=== PATIENT | female | born 1960 | race Caucasian/White ===

== ENCOUNTER 2021-06-23 11:00 | Emergency (ER) | payer OTHER ==
--- OUTSIDE RECORDS SUMMARY | 2021-06-23 11:03 | XMS REPORT | Continuity of Care Document ---
:1960 Author Organization [facility] t Address [address] [place] [address] [address] [place] [address] Care Team Providers Name Role Phone Jasiel Good Attending Clinician Unavailable Problems This patient has no known problems. Allergies, Adverse Reactions, Alerts This patient has no known allergies or adverse reactions. Medications Ordered Filled Start Stop Current Ordering Indication Dosage Frequency Signature Comments Components Source Medication Medication Date Date Medication? Clinician (SIG) Name Name Ranitidine Ranitidine 2019-0 Yes Na Good [address] [facility] HCl HCl 3-11 [facility] 00 [facility] Crestor Crestor Yes Na Good [address] [facility] Clonidine Clonidine Yes Na Good [address] [facility] Folic Acid Folic Acid Yes Na Good [address] [facility] XTRA XTRA [facility] Triamterene Triamterene Yes Na Good [address] [facility] -HCTZ -HCTZ in the [facility] - morning [facility]ics Norvasc Norvasc Yes Na Good [address] [facility] Flonase Flonase Yes Na Good [address] [facility] each [facility] Montelukast Montelukast Yes Na Good [address] [facility] Sodium Sodium in the [facility] - evening [facility] Gabapentin Gabapentin Yes Na Good [address] [facility] Levothyroxi Levothyroxi Yes Na Good [address] [facility] ne Sodium ne Sodium on an Luke s - empty [facility] stomach in l the Outpati morning ent Clinics Vitamin D3 Vitamin D3 Yes Na Good [address] [facility] Clonidine Clonidine Yes Na Good [address] [facility] HCl HCl [facility] Methotrexat Methotrexat Yes Na Good INJECT 0.[address] [facility] e Sodium e Sodium ML [facility] - (PF) (PF) SUBCUTANEO [facility] USLY ONCE l EVERY Outpati WEEK. ent Clinics Claritin Claritin 2019- Na Good [address] [facility] 08-05 [facility] Immunizations Ordered Filled Immunization Date Status Comments Sourc e Immunization Name Name FluDONNY FluAD 2018-11-[address] [facility]00 [facility] Procedures This patient has no known procedures. Encounters Start End Encounter Admission Attending Care Care Encounter Source Date/Time Date/Time Type Type Clinicians Facility Department ID 2021-06-07 Out[facility] [id number] [facility] 10[facility]43[facility]00 [id number] [facility] 2021-05-18 Out[facility] Lat[facility] Jann[facility] [id number] [facility] 16:35:00 [id number] [facility] 2021-03-23 Outpatient GoodJannette [facility] [id number] [facility] 14[facility]34[facility]30 [facility] 2021-03-23 Outpatient Latisha Jann[facility] [id number] [facility] 14:00:26 [id number] [facility] 2021-03-23 Outpatient GoodJannette [facility] [id number] [facility] [address] 13:58:30 [id number] [facility] 2021-03-23 Outpatient GoodJannette [facility] [id number] [facility] [address] 13:57:22 [facility] 2021-03-23 Outpatient Good, Na [facility] [id number] [facility] 13:23:44 [id number] [facility] 2021-03-23 Outpatient Good, Na [facility] [id number] [facility] [address] 12:45:34 [id number] [facility] 2021-03-23 Outpatient Good, Na [facility] [id number] [facility] [address] 12:36:03 [id number] [facility] 2021-03-23 Outpatient Good, Na [facility] [id number] [facility] [address] 12:21:11 [id number] [facility] 2021-03-23 Outpatient Good, Na [facility]LML[facility] [id number] [facility] [address] 12:09:34 [id number] [facility] 2021-03-23 Outpatient Good, Na [facility]ML[facility] [id number] [facility] [address] 11:58:50 [id number] [facility] 2021-03-23 Outpatient Good, Na [facility] [id number] [facility] [address] 11:33:44 [id number] [facility] 2021-03-23 Outpatient Good, Na [facility] [id number] [facility] 11:31:40 [id number] [facility] 2021-03-23 Outpatient Good, Na [facility]LML[facility] [id number] [facility] [address] 11:18:14 [id number] [facility] 2021-03-23 Outpatient Good, Na [facility] [id number] [facility] 11:16:56 [id number] [facility] 2021-03-11 2021-03-11 ambulatory [facility] [id number] [facility] 2020-12-03 2020-12-03 Outpatient [facility] [id number] [facility] 2020-10-06 2020-10-06 Outpatient [facility] [id number] [facility] 2020-09-03 2020-09-03 Outpatient [facility] [id number] [facility] 2020-09-03 2020-09-03 Outpatient [facility] [id number] [facility] 2020-06-28 2020-06-28 Outpatient [facility] [id number] [facility] 2020 2020 Outpatient [facility] [id number] [facility] 2020-01-29 2020-01-29 Outpatient [facility] [id number] [facility] 2020-01-29 2020-01-29 Outpatient [facility] [id number] [facility] 2019-09-15 2019-09-15 [facility] [id number] [address] [facility]:00:[address] [facility] [address] [facility] Medicine l Medicine Outpati ent Clinics 2019-06-16 2019-06-16 [facility] [id number] 08:40:00 08:40:[address] [facility] - [address] [facility] l Medicine Outpati ent Clinics 2019-05-30 2019-05-30 [facility] [id number] 15:47:00 15:47:[address] [facility] [place] [address] [facility] Medicine l Medicine Outpati ent Clinics 2019-02-07 2019-02-07 [facility] [id number] 08:40:00 08:40:[address] [facility] [place] - [address] [facility] Medicine Outpati ent Clinics 2019-01-30 2019-01-30 [facility] [id number] [address] 16:14:00 16:14:00 t [employer] [facility] Medicine Outpati ent Clinics 2018-11-08 2018-11-08 [facility] [id number] 08:40:00 08:40:00 t [employer] [facility] Outpati ent Clinics 2018-10-22 2018-10-22 [facility] [id number] 08:20:00 08:20:00 t [employer] [facility] Medicine Outpati ent Clinics 2018-05-06 2018-05-06 [facility] [id number] 08:30:00 08:30:00 t [employer] [facility] Outpati ent Clinics Results This patient has no known results.
[2021-06-23] MEDS ORDERED: MORPHINE 4 MG/ML SYR ONE (11:39)
[2021-06-23] MEDS ORDERED: ONDANSETRON 4 MG/2 ML VIAL ONE (11:39)
--- NOTE | 2021-06-23 12:18 | RAD REPORT ---
EXAM DESCRIPTION: RAD - Knee Right 3 View - 06/23/2021 11:49 am CLINICAL HISTORY: Right knee pain status post injury FINDINGS: The knee is fused. The bones are osteoporotic. Lucency within the proximal tibia likely a nondisplaced fracture. Cortical irregularity involves the fibular neck also probably a nondisplaced fracture. No dislocation
--- NOTE | 2021-06-23 12:35 | ER ---
Nurse's Notes [facility] Name: Young Gates Age: 61 yrs Sex: Female : 1960 Arrival Date: 06/23/2021 Time: 11:10 Bed 18 Private MD: Diagnosis: Nondisplaced fracture of right tibial tuberosity-proximal tibial and febular fracture Presentation: 06/23 11:13 Chief complaint: Patient states: in wheelchair scooter when leg was caught and bent jh6 backwards. pt having rt knee pain. sharp, worse with movement. Coronavirus screen: Vaccine status: Patient reports receiving the 2nd dose of the covid vaccine. Ebola Screen: Patient negative for fever greater than or equal to 101.5 degrees Fahrenheit, and additional compatible Ebola Virus Disease symptoms Patient denies exposure to infectious person. Patient denies travel to an Ebola-affected area in the 21 days before illness onset. Initial Sepsis Screen: Does the patient meet any 2 criteria? No. Patient's initial sepsis screen is negative. Does the patient have a suspected source of infection? No. Patient's initial sepsis screen is negative. Risk Assessment: Do you want to hurt yourself or someone else? Patient reports no desire to harm self or others. Onset of symptoms was June 23, 2021. 11:13 Method Of Arrival: EMS: [facility] 11:13 Acuity: KJ 4 6 Triage Assessment: 11:15 General: Appears in no apparent distress. uncomfortable, Behavior is calm, cooperative. 6 Pain: Complains of pain in posterior aspect of right knee and right knee Pain currently is 10 out of 10 on a pain scale. Quality of pain is described as sharp, shooting, stabbing, Pain began suddenly, Aggravated by exercise, increased activity. Historical: - Allergies: 11:14 Ampicillin; 6 11:14 Azithromycin; 6 11:14 Lisinopril; 6 11:14 PENICILLINS; 6 - PMHx: 11:14 Arthritis; Hypertension; Hypothyroidism; 6 - Immunization history:: Adult Immunizations up to date. - Social history:: Smoking status: Patient denies any tobacco usage or history of. - Family history:: not pertinent. Screenin:16 Abuse screen: Denies threats or abuse. Nutritional screening: No deficits noted. jh6 Tuberculosis screening: No symptoms or risk factors identified. Fall Risk IV access (20 points). Gait- Impaired (20 pts.). Assessment: 11:10 General: Appears in no apparent distress. uncomfortable, Behavior is calm, cooperative. jh6 11:10 Pain: Complains of pain in left rob Pain radiates to left knee Pain currently is 9 out jh6 of 10 on a pain scale. Quality of pain is described as shooting, throbbing, Pain began suddenly, Is continuous, Alleviated by rest, cold application, Aggravated by increased activity, repositioning. 12:20 Reassessment: Patient and/or family updated on plan of care and expected duration. Pain jh6 level reassessed. Patient is alert, oriented x 3, equal unlabored respirations, skin warm/dry/pink. Patient states feeling better. Patient states symptoms have improved. 12:20 Pain: Pain currently is 4 out of 10 on a pain scale. jh6 Vital Signs: 11:11 BP 147 / 96; Pulse 58; Resp 16; Temp 97.6; Pulse Ox 100% ; Weight 99.79 kg; Height 5 zm ft. 9 in. (175.26 cm); 13:10 BP 147 / 75; Pulse 72; Resp 16; Pulse Ox 98% ; Pain 4/10; jh6 11:11 Body Mass Index 32.49 (99.79 kg, 175.26 cm) zm ED Course: 11:10 Patient arrived in ED. jh6 11:13 Mili Antoine, RN is Primary Nurse. jh6 11:14 Triage completed. jh6 11:16 Arm band placed on left wrist. Patient placed in an exam room, on a stretcher, on pulse jh6 oximetry. 11:16 Bed in low position. Call light in reach. Side rails up X 1. jh6 11:17 No provider procedures requiring assistance completed. jh6 11:25 Cooper Cordon MD is Attending Physician. ma2 11:51 Knee Right 3 View XRAY In Process Unspecified. EDMS 12:34 Denilson Calderon MD is Referral Physician. ma2 13:08 Assist provider with fracture care of right rob Fracture is closed. Set up for 6 procedure. Immobilized with OCL splint, Post immobilization, circulation, motor and sensation remain intact. Patient tolerated well. 13:40 IV discontinued, intact, bleeding controlled, No redness/swelling at site. Pressure ss dressing applied. Administered Medications: 11:40 Drug: morphine 4 mg Route: IVP; Site: right hand; 6 13:11 Follow up: Response: Pain is decreased 6 11:40 Drug: Zofran (Ondansetron) 4 mg Route: IVP; Site: right hand; 6 13:11 Follow up: Response: No adverse reaction [facility] Outcome: 12:35 Discharge ordered by . lexis 13:40 Discharged to home via ambulance. 13:40 Condition: good 13:40 Discharge instructions given to patient, Instructed on discharge instructions, follow up and referral plans. Demonstrated understanding of instructions, follow-up care, Prescriptions given X 1. 13:43 Patient left the ED. 6 Signatures: Dispatcher [employer] [place] Colin RN RN Cooper Leon MD MD ma2 Mili Antoine RN RN [facility] April Valdez
--- NOTE | 2021-06-23 12:35 | EDPHYS ---
Physician Documentation [facility] Name: Young Gates Age: 61 yrs Sex: Female : 1960 Arrival Date: 06/23/2021 Time: 11:10 Bed 18 Private MD: ED Physician Cooper Cordon HPI: 06/23 12:30 This 61 yrs old Female presents to ER via EMS with complaints of Knee pain. ma2 12:30 7-year-old female twisted her right knee while trying to get off the wheelchair, she ma2 states she heard a pop, here with knee pain for 1 hour constant painful range of motion.. Historical: - Allergies: 11:14 Ampicillin; jh6 11:14 Azithromycin; jh6 11:14 Lisinopril; jh6 11:14 PENICILLINS; jh6 - PMHx: 11:14 Arthritis; Hypertension; Hypothyroidism; jh6 - Immunization history:: Adult Immunizations up to date. - Social history:: Smoking status: Patient denies any tobacco usage or history of. - Family history:: not pertinent. ROS: 12:30 Constitutional: Negative for fever, chills, and weight loss. ma2 12:30 All other systems are negative. Exam: 12:30 Constitutional: This is a well developed, well nourished patient who is awake, alert, ma2 and in no acute distress. Head/Face: Normocephalic, atraumatic. Chest/axilla: Normal chest wall appearance and motion. Nontender with no deformity. No lesions are appreciated. Cardiovascular: Regular rate and rhythm with a normal S1 and S2. No gallops, murmurs, or rubs. Normal PMI, no JVD. No pulse deficits. Respiratory: Lungs have equal breath sounds bilaterally, clear to auscultation and percussion. No rales, rhonchi or wheezes noted. No increased work of breathing, no retractions or nasal flaring. Abdomen/GI: Soft, non-tender, with normal bowel sounds. No distension or tympany. No guarding or rebound. No evidence of tenderness throughout. Skin: Warm, dry with normal turgor. Normal color with no rashes, no lesions, and no evidence of cellulitis. MS/ Extremity: Right knee tenderness to lateral tibia, mild effusion, there is no warmth or cyclically, skin is intact with no abrasions or punctures, limited range of motion of the right knee both flexion and extension due to pain, there is no clinical dislocation, right knee and right leg is well-perfused with palpable popliteal pulses and good pulses at the DP and PT. Cap refill brisk, otherwise pulses equal, no cyanosis. Neurovascular intact. Full, normal range of motion. Neuro: Awake and alert, GCS 15, oriented to person, place, time, and situation. Cranial nerves II-XII grossly intact. Motor strength 5/5 in all extremities. Sensory grossly intact. Cerebellar exam normal. Normal gait. Vital Signs: 11:11 BP 147 / 96; Pulse 58; Resp 16; Temp 97.6; Pulse Ox 100% ; Weight 99.79 kg; Height 5 zm ft. 9 in. (175.26 cm); 13:10 BP 147 / 75; Pulse 72; Resp 16; Pulse Ox 98% ; Pain 4/10; jh6 11:11 Body Mass Index 32.49 (99.79 kg, 175.26 cm) zm MDM: 12:30 Differential diagnosis: closed fracture, contusion, abrasion, tendonitis. Data ma2 reviewed: vital signs, nurses notes. Counseling: I had a detailed discussion with the patient and/or guardian regarding: the historical points, exam findings, and any diagnostic results supporting the discharge/admit diagnosis, the presence of at least one elevated blood pressure reading (>120/80) during this emergency department visit, the need for outpatient follow up. Response to treatment: the patient's symptoms have markedly improved after treatment. 12:35 Patient medically screened. vt2 06/23 11:25 Order name: Knee Right 3 View XRAY; Complete Time: 12:27 ma2 06/23 12:29 Order name: Long Leg Splint: Posterior w/ Stirrup; Complete Time: 13:11 ma2 Administered Medications: 11:40 Drug: morphine 4 mg Route: IVP; Site: right hand; 6 13:11 Follow up: Response: Pain is decreased 6 11:40 Drug: Zofran (Ondansetron) 4 mg Route: IVP; Site: right hand; 6 13:11 Follow up: Response: No adverse reaction [facility] Disposition Summary: 06/23/21 12:35 Discharge Ordered Location: Home ma2 Condition: Stable ma2 Diagnosis - Nondisplaced fracture of right tibial tuberosity - proximal tibial and febular ma2 fracture Followup: ma2 - With: Denilson Calderon MD - When: Tomorrow - Reason: If symptoms return, Continuance of care Discharge Instructions: - Discharge Summary Sheet ma2 - Tibial Fracture, Adult, [id number] ma2 Forms: - Medication Reconciliation Form ma2 - Thank You Letter ma2 - Antibiotic Education ma2 - Prescription Opioid Use ma2 Prescriptions: - KETOROLAC - take 10 milligram by ORAL route 3 times per day; 21 tablet; Refills: 0, Product ma2 Selection Permitted Signatures: Dispatcher [employer] EDMS Cooper Cordon MD MD vt2 Mili Antoine RN RN jh6 Corrections: (The following items were deleted from the chart) 12:29 12:28 Knee Immobilizer ordered. ma2 ma2
[2021-06-23 14:40] VITALS: TEMP 97.6
[2021-06-23 14:47] VITALS: BP 147/75; O2SAT 98
== END 2021-06-23 13:43 | disposition home or self-care (01) ==
LOC: ER 11:00
PROC: 2W3LX1Z Immobilization of Right Lower Extremity using Splint (ICD-10-PCS; principal; 2021-06-23)
DX: S82.154A Nondisplaced fracture of right tibial tuberosity, initial encounter for closed fracture (principal); X50.1XXA Overexertion from prolonged static or awkward postures, initial encounter; I10 Essential (primary) hypertension; Z88.0 Allergy status to penicillin; Z88.1 Allergy status to other antibiotic agents; Z88.8 Allergy status to other drugs, medicaments and biological substances
CPT/HCPCS: 73562; 96375; 96374; 99284; 29505; J2405

== ENCOUNTER 2023-01-29 11:28 | Observation (INO) | payer OTHER ==
--- OUTSIDE RECORDS SUMMARY | 2023-01-29 11:34 | XMS REPORT | Continuity of Care Document ---
:1960 Author Organization [facility] t Address [address] [place] [address] [place] [id number] Care Team Providers Name Role Phone Nikolay Bhakta Attending Clinician Unavailable Ofelia SUÁREZ Attending Clinician Unavailable Carlie Garrido Attending Clinician Unavailable Jannette Good Attending Clinician Unavailable Meka Attending Clinician Unavailable NEAL_GERSON_Wilbur_S Attending Clinician Unavailable Ian Monzon Attending Clinician Unavailable Meka Admitting Clinician Unavailable NEAL_GERSON_Wilbur_S Admitting Clinician Unavailable Ian Monzon Admitting Clinician Unavailable Carlie Garrido Admitting Clinician Unavailable Payers Payer Name Policy Type Policy Number Effective Date Expiration Date [employer] - [id number] 2022 [facility] 00:00:00 - DUAL ELIGIBLE (MEDICARE REPLACEMENT/ADVAN TAGE - HMO) [employer] [place] [id number] 2018 [facility] - 00:00:00 STAR (MEDICAID HMO) [facility] [id number] - DUAL COMPLETE - DUAL ELIGIBLE - SNP (MEDICARE-MEDICAI D REPLACEMENT HMO) [facility] - [id number] [facility] - COMMUNITY PLAN - DUAL COMPLETE FOCUS (MEDICARE REPLACEMENT HMO) [facility] Dual 111 [id number] 2020 Common Complete (HMO-POS 00:00:00 Spirit - [facility] D-SNP) [facility] MEDICAID [id number] 2012 Common 00:00:00 [facility] MEDICARE NOVITAS MB [id number] 2010 Common 00:00:00 [facility] [employer] [id number] 2018 Common (Medicaid) 00:00:00 [facility] Problems Condition Condition Condition Status Onset Resolution Last Treating Co mments Source Name Details Category Date Date Treatment Clinician Date 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-17 Orth ope osteoarthr Osteoarthr 00:00: di c itis itis 00 [facility] Osteoarthr Osteoarthr Problem Active 2013-02 A zalea itis of itis of 0-07 Orthope knee Knee 00:00: dic 00 Sports Medicin e [id number] Seasonal Problem Commo n allergic Spirit rhinitis - [facility] due to [facility] [id number] Other Problem Common closed Spirit fracture - [facility] of proximal [facility] tibia, initial encounter [id number] Other Problem Common closed Spirit fracture - [facility] of [facility] fibula, initial encounter [id number] Pain, [place] [id number] joint, Spirit knee, - [facility] right [facility] [id number] Body mass Problem Com mon index Spirit [BMI] - [facility] 33.0-33.9, [facility] General General Problem Common weakness weakness [facility] Pain in Pain in Problem Common limb limb Spirit [facility] 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 Peripheral Peripheral Problem C ommon neuropathy neuropathy Sp anil - [facility] Hypertensi HTN Problem Commo n on (hypertens Spirit ion) [facility] Gastroesop GERD Problem Commo n hageal (gastroeso Spirit reflux phageal [facility] disease reflux St disease) [facility] Anemia Anemia Problem Common [facility] Hypothyroi Hypothyroi Problem C ommon dism dism [facility] Rheumatoid Rheumatoid Problem C ommon arthritis arthritis Spir it [facility] Hyperlipid Hyperlipid Problem C ommon emia emia [facility] [id number] +5th digit Problem Co mmon eff Spirit 11/27/19*[place] - [facility] stroesopha [facility] reflux Medical disease Center with esophagiti s [id number] Neuropathy Problem Co mmon [facility] [id number] Wheelchair Problem Co mmon dependence [facility] Knee pain Knee pain Problem Com mon [facility] [id number] Chronic Problem Commo n seasonal Spirit allergic - [facility]I rhinitis [facility] Dependence Uses Problem Commo n on wheelchair Spirit wheelchair [facility] Acquired Valgus Problem Common genu deformity, Spirit valgum not - [facility] elsewhere [facility] , right Medical knee Center [id number] Influenza Problem Co mmon [id number] vaccinatio Spirit n - [facility]I administer [facility] ed at [facility] current Medical visit Center Allergies, Adverse Reactions, Alerts Allergy Allergy Status Severity Reaction(s) Onset Inactive Treating Comm ents Source Name Type Date Date Clinician Penicill DA Active SV BREAKOUT IN 2022-02 [facility] ins HIVES UNDER 0-23 [place] THE SKIN 00:00: [facility]ope 00 [facility] lisinopr DA Active SV CAUSE ME TO 2022-02 [facility] il HAVE KIDNEY 0-23 [place] FAILURE 00:00: Orthope 00 dic [facility]osp[facility] l iodine DA Active [facility] THROAT 2022-02 [facility] [place] Orthop e BREATHING 00 dic Hospita l azithrom DA Active SV HIVES 2022-02 [facility] ycin 0-23 [place] 00:00: Orthope 00 dic Hospita l shellfis FA Active [facility] THROAT 2022-02 [facility] [place] derived DIFF[place]ULTY 00:00: Ortho pe BREATHING 00 dic Hospita l shrimp FA Active SV THROAT 2022-02 [facility] SWELLS, 0-23 [place] DIFFICULTY 00:00: Orthop e BREATHING 00 dic Hospita l crab FA Active SV THROAT 2022-02 [facility] SWELLS, 0-23 [place] DIFFICULTY 00:00: Orthop e BREATHING 00 dic Hospita l azithrom DA Active SV HIVES 2022- [facility] ycin 0-13 [place] 00:00: [address] shrimp FA Active SV THROAT [facility] SWELLS, 8-17 [place] DIFF[place] 00:[place] [facility] crab FA Active SV THROAT [facility] SWELLS, 8-17 [place] DIFFICULTY 00:00: [place] 00 [facility] Penicill DA Active SV BREAKOUT IN [facility] ins HIVES UNDER 8-17 [place] THE SKIN 00:00: [address] lisinopr DA Active SV CAUSE ME TO [facility] [place] HAVE KIDNEY 8-17 [place] FAILURE 00:00: [address] iodine DA Active SV THROAT [facility] SWELLING UP, 8-17 [place] DIFFICULTY 00:00: [place] BREATHING 00 [facility] shellfis FA Active SV THROAT [facility] h SWELLING UP, 8-17 [place] derived DIFFICULTY 00:00: [place] BREATHING 00 [facility] LISINOPR Allergy Active 2013-02 Syeda [place] to 0-07 Orthope substanc 00:00: dic e 00 [facility] PENICILL Allergy Active 2013-02 Syeda [place] to 0-07 Orthope substanc 00:00: dic e 00 [facility] Amoxicil Allergy Active Syeda edwin to Orthope substanc dic e Sports Medicin e Ampicill Allergy Active Syeda in to Orthope substanc dic e Sports Medicin e PENICILL Allergy Active Syeda INS to Orthope substanc dic e Sports Medicin e SHELLFIS Allergy Active Syeda H to Orthope DERIVED substanc dic e Sports Medicin e [id number] Drug Active Unknown Common 85 allergy [facility] Social History Social Habit Start Date Stop Date Quantity Comments Source History of Tobacco Use Co mmon [facility] Sex Assigned At Com mon [facility] Smoking Status Start Date Stop Date Source Never Smoker [facility] Medications Ordered Filled Start Stop Current Ordering Indication Dosage Frequency Signature Comments Components Source Medication Medication Date Date Medication? Clinician (SIG) Name Name Levothyroxi Levothyroxi No QD Levothyrox ne Sodium ne Sodium 5-11 ine Sodium 75 MCG 75 MCG 00:00: 75 MCG 00 Levothyroxi Levothyroxi No QD Levothyrox ne Sodium ne Sodium 5-11 ine Sodium 75 MCG 75 MCG 00:00: 75 MCG 00 Levothyroxi Levothyroxi No QD Levothyrox ne Sodium ne Sodium 5-11 ine Sodium 75 MCG 75 MCG 00:00: 75 MCG 00 Levothyroxi Levothyroxi No QD Levothyrox ne Sodium ne Sodium 5-11 ine Sodium 75 MCG 75 MCG 00:00: 75 MCG 00 Levothyroxi Levothyroxi No QD Levothyrox ne Sodium ne Sodium 5-11 ine Sodium 75 MCG 75 MCG 00:00: 75 MCG 00 Levothyroxi Levothyroxi No QD Levothyrox ne Sodium ne Sodium 5-11 ine Sodium 75 MCG 75 MCG 00:00: 75 MCG 00 Levothyroxi Levothyroxi No QD Levothyrox ne Sodium ne Sodium 5-11 ine Sodium 75 MCG 75 MCG 00:00: 75 MCG 00 Levothyroxi Levothyroxi No QD Levothyrox ne Sodium ne Sodium 5-11 ine Sodium 75 MCG 75 MCG 00:00: 75 MCG 00 Levothyroxi Levothyroxi No QD Levothyrox ne Sodium ne Sodium 5-11 ine Sodium 75 MCG 75 MCG 00:00: 75 MCG 00 Levothyroxi Levothyroxi No QD Levothyrox ne Sodium ne Sodium 5-11 ine Sodium 75 MCG 75 MCG 00:00: 75 MCG 00 Flonase 50 Flonase 50 No 2{spray QD Flonase 50 MCG/ACT MCG/ACT 5-04 _in_eac MCG/ACT 00:00: h_nostr 00 il} Flonase 50 Flonase 50 No 2{spray QD Flonase 50 MCG/ACT MCG/ACT 5-04 _in_eac MCG/ACT 00:00: h_nostr 00 il} Flonase 50 Flonase 50 2022-0 No 2{spray QD Flonase 50 MCG/ACT MCG/ACT 5-04 _in_eac MCG/ACT 00:00: h_nostr 00 il} Flonase 50 Flonase 50 2021-0 No 2{spray QD Flonase 50 MCG/ACT MCG/ACT 5-04 _in_eac MCG/ACT 00:00: h_nostr 00 il} Flonase 50 Flonase 50 2-0 No 2{spray QD Flonase 50 MCG/ACT MCG/ACT 5-04 _in_eac MCG/ACT 00:00: h_nostr 00 il} Flonase 50 Flonase 50 2021-0 No 2{spray QD Flonase 50 MCG/ACT MCG/ACT 5-04 _in_eac MCG/ACT 00:00: h_nostr 00 il} Flonase 50 Flonase 50 2021-0 No 2{spray QD Flonase 50 MCG/ACT MCG/ACT 5-04 _in_eac MCG/ACT 00:00: h_nostr 00 il} Flonase 50 Flonase 50 2021-0 No 2{spray QD Flonase 50 MCG/ACT MCG/ACT 5-04 _in_eac MCG/ACT 00:00: h_nostr 00 il} Flonase 50 Flonase 50 2021-0 No 2{spray QD Flonase 50 MCG/ACT MCG/ACT 5-04 _in_eac MCG/ACT 00:00: h_nostr 00 il} Flonase 50 Flonase 50 2-0 No 2{spray QD Flonase 50 MCG/ACT MCG/ACT 5-04 _in_eac MCG/ACT 00:00: h_nostr 00 il} Flonase 50 Flonase 50 2021-0 No 2{spray QD Flonase 50 MCG/ACT MCG/ACT 5-04 _in_eac MCG/ACT 00:00: h_nostr 00 il} Flonase 50 Flonase 50 2021-0 No 2{spray QD Flonase 50 MCG/ACT MCG/ACT 5-04 _in_eac MCG/ACT 00:00: h_nostr 00 il} Ranitidine Ranitidine 2018-0 Yes Na Good 1 capsule Common HCl HCl 3-11 Spirit 00:00: - [facility] 00 [facility] amlodipine amlodipine 2013-02 No amlodipine Syeda 2.5 mg 2.5 mg 0-07 2.5 mg Orthope tablet tablet 00:00: tablet dic 00 [facility] gabapentin gabapentin 2013-02 No gabapentin Syeda 600 mg 600 mg 0-07 600 mg Orthope tablet tablet 00:00: tablet dic 00 Sports Medicin e clonidine clonidine No clonidine Syeda HCl 0.2 mg HCl 0.2 mg HCl 0.2 mg Orthope tablet TAKE tablet TAKE tablet dic 1 TABLET BY 1 TABLET BY TAKE 1 Sports MOUTH EVERY MOUTH EVERY TABLET BY Medicin DAY DAY MOUTH e EVERY DAY Crestor Crestor Yes Na Good 1 tablet Co [facility] Clonidine Clonidine Yes Na Good 1 tablet Common HCl HCl [facility] Folic Acid Folic Acid Yes Na Good 1 tab Common XTRA XTRA [facility] Triamterene Triamterene Yes Na Good 1 tablet Common -HCTZ -HCTZ in the [facility] morning [facility] Norvasc Norvasc Yes Na Good 1 tablet Co [facility] Flonase Flonase Yes Na Good 1 spray in Common each [facility] nostril [facility] Montelukast Montelukast Yes Na Good 1 tablet Common Sodium Sodium in the [facility] evening [facility] Gabapentin Gabapentin Yes Na Good 1 capsule [facility] Levothyroxi Levothyroxi Yes Na Good 1 tablet Common ne Sodium ne Sodium on an Spir it empty - [facility]I stomach in [facility] Vitamin D3 Vitamin D3 Yes Na Good 1 capsule Common [facility] Clonidine Clonidine Yes Na Good 1 tablet Common HCl HCl [facility] Methotrexat Methotrexat Yes Na Good INJECT 0.8 Common e Sodium e Sodium ML Spirit (PF) (PF) SUBCUTANEO - [facility] USLY ONCE [facility] WEEK. [facility] Center cloNIDine cloNIDine No 1{table QD cloNIDine HCl 0.2 MG HCl 0.2 MG t} HCl 0.2 MG Crestor 10 Crestor 10 No 1{table QD Crestor 10 MG MG t} MG Vitamin D3 Vitamin D3 No 1{capsu QD Vitamin D3 2000 UNIT 2000 UNIT le} 2000 UNIT Triamterene Triamterene No 1{table QD Triamteren -HCTZ -HCTZ t_in_th e-HCTZ 37.5-25 MG 37.5-25 MG e_morni 37.5-25 MG ng} Ranitidine Ranitidine No 1{capsu BID Ranitidine HCl 150 MG HCl 150 MG le} HCl 150 MG cloNIDine cloNIDine No 1{table QD cloNIDine HCl 0.2 HCl 0.2 t} HCl 0.2 Levothyroxi Levothyroxi No QD Levothyrox ne Sodium ne Sodium ine Sodium 75 MCG 75 MCG 75 MCG Methotrexat Methotrexat No Methotrexa e Sodium e Sodium te Sodium (PF) 50 (PF) 50 (PF) 50 MG/2ML MG/2ML MG/2ML Norvasc 5 Norvasc 5 No 1{table QD Norvasc 5 t} Montelukast Montelukast No 1{table QD Montelukas Sodium 10 Sodium 10 t_in_th t Sodium e_eveni 10 ng} Flonase 50 Flonase 50 No 1{spray QD Flonase 50 MCG/ACT MCG/ACT _in_eac MCG/ACT h_nostr il} Gabapentin Gabapentin No 1{capsu BID Gabapentin 300 MG 300 MG le} 300 MG Gabapentin Gabapentin No 1{capsu BID Gabapentin 300 300 le} 300 Folic Acid Folic Acid No QD Folic Acid Xtra - Xtra - Xtra - Montelukast Montelukast No 1{table QD Montelukas Sodium 10 Sodium 10 t_in_th t Sodium MG MG e_eveni 10 MG ng} Norvasc 5 Norvasc 5 No 1{table QD Norvasc 5 MG MG t} MG Norvasc 5 Norvasc 5 No 1{table QD Norvasc 5 MG MG t} MG Levothyroxi Levothyroxi No QD Levothyrox ne Sodium ne Sodium ine Sodium 50 MCG 50 MCG 50 MCG Crestor 10 Crestor 10 No 1{table QD Crestor 10 MG MG t} MG Montelukast Montelukast No 1{table QD Montelukas Sodium 10 Sodium 10 t_in_th t Sodium e_eveni 10 ng} cloNIDine cloNIDine No 1{table QD cloNIDine HCl 0.2 HCl 0.2 t} HCl 0.2 Gabapentin Gabapentin No 1{capsu BID Gabapentin 300 300 le} 300 Vitamin D3 Vitamin D3 No 1{capsu QD Vitamin D3 2000 UNIT 2000 UNIT le} 2000 UNIT Gabapentin Gabapentin No 1{capsu BID Gabapentin 300 MG 300 MG le} 300 MG Ranitidine Ranitidine No 1{capsu BID Ranitidine HCl 150 MG HCl 150 MG le} HCl 150 MG Flonase 50 Flonase 50 No 1{spray QD Flonase 50 MCG/ACT MCG/ACT _in_eac MCG/ACT h_nostr il} cloNIDine cloNIDine No 1{table QD cloNIDine HCl 0.2 MG HCl 0.2 MG t} HCl 0.2 MG Montelukast Montelukast No 1{table QD Montelukas Sodium 10 Sodium 10 t_in_th t Sodium MG MG e_eveni 10 MG ng} Folic Acid Folic Acid No QD Folic Acid Xtra - Xtra - Xtra - Norvasc 5 Norvasc 5 No 1{table QD Norvasc 5 t} Methotrexat Methotrexat No Methotrexa e Sodium e Sodium te Sodium (PF) 50 (PF) 50 (PF) 50 MG/2ML MG/2ML MG/2ML Triamterene Triamterene No 1{table QD Triamteren -HCTZ -HCTZ t_in_th e-HCTZ 37.5-25 MG 37.5-25 MG e_morni 37.5-25 MG ng} Levothyroxi Levothyroxi No QD Levothyrox ne Sodium ne Sodium ine Sodium 50 MCG 50 MCG 50 MCG Vitamin D3 Vitamin D3 No 1{capsu QD Vitamin D3 2000 UNIT 2000 UNIT le} 2000 UNIT cloNIDine cloNIDine No cloNIDine HCl 0.2 MG HCl 0.2 MG HCl 0.2 MG Flonase 50 Flonase 50 No 1{spray QD Flonase 50 MCG/ACT MCG/ACT _in_eac MCG/ACT h_nostr il} Gabapentin Gabapentin No 1{capsu BID Gabapentin 300 300 le} 300 Folic Acid Folic Acid No QD Folic Acid Xtra - Xtra - Xtra - Gabapentin Gabapentin No 1{capsu BID Gabapentin 300 MG 300 MG le} 300 MG Crestor 10 Crestor 10 No 1{table QD Crestor 10 MG MG t} MG Norvasc 5 Norvasc 5 No 1{table QD Norvasc 5 MG MG t} MG cloNIDine cloNIDine No 1{table QD cloNIDine HCl 0.2 HCl 0.2 t} HCl 0.2 Triamterene Triamterene No 1{table QD Triamteren -HCTZ -HCTZ t_in_th e-HCTZ 37.5-25 MG 37.5-25 MG e_morni 37.5-25 MG ng} Ranitidine Ranitidine No 1{capsu BID Ranitidine HCl 150 MG HCl 150 MG le} HCl 150 MG Montelukast Montelukast No 1{table QD Montelukas Sodium 10 Sodium 10 t_in_th t Sodium MG MG e_eveni 10 MG ng} Norvasc 5 Norvasc 5 No 1{table QD Norvasc 5 t} Montelukast Montelukast No 1{table QD Montelukas Sodium 10 Sodium 10 t_in_th t Sodium e_eveni 10 ng} Methotrexat Methotrexat No Methotrexa e Sodium e Sodium te Sodium (PF) 50 (PF) 50 (PF) 50 MG/2ML MG/2ML MG/2ML Methotrexat Methotrexat No Methotrexa e Sodium e Sodium te Sodium (PF) 50 (PF) 50 (PF) 50 MG/2ML MG/2ML MG/2ML cloNIDine cloNIDine No 1{table QD cloNIDine HCl 0.2 HCl 0.2 t} HCl 0.2 Gabapentin Gabapentin No 1{capsu BID Gabapentin 300 MG 300 MG le} 300 MG Norvasc 5 Norvasc 5 No 1{table QD Norvasc 5 MG MG t} MG Gabapentin Gabapentin No 1{capsu BID Gabapentin 300 300 le} 300 Vitamin D3 Vitamin D3 No 1{capsu QD Vitamin D3 2000 UNIT 2000 UNIT le} 2000 UNIT Flonase 50 Flonase 50 No 1{spray QD Flonase 50 MCG/ACT MCG/ACT _in_eac MCG/ACT h_nostr il} Montelukast Montelukast No 1{table QD Montelukas Sodium 10 Sodium 10 t_in_th t Sodium MG MG e_eveni 10 MG ng} cloNIDine cloNIDine No 1{table QD cloNIDine HCl 0.2 MG HCl 0.2 MG t} HCl 0.2 MG Triamterene Triamterene No 1{table QD Triamteren -HCTZ -HCTZ t_in_th e-HCTZ 37.5-25 MG 37.5-25 MG e_morni 37.5-25 MG ng} Montelukast Montelukast No 1{table QD Montelukas Sodium 10 Sodium 10 t_in_th t Sodium e_eveni 10 ng} Ranitidine Ranitidine No 1{capsu BID Ranitidine HCl 150 MG HCl 150 MG le} HCl 150 MG Crestor 10 Crestor 10 No 1{table QD Crestor 10 MG MG t} MG Folic Acid Folic Acid No QD Folic Acid Xtra - Xtra - Xtra - cloNIDine cloNIDine No cloNIDine HCl 0.2 MG HCl 0.2 MG HCl 0.2 MG Norvasc 5 Norvasc 5 No 1{table QD Norvasc 5 t} Levothyroxi Levothyroxi No QD Levothyrox ne Sodium ne Sodium ine Sodium 50 MCG 50 MCG 50 MCG Methotrexat Methotrexat No Methotrexa e Sodium e Sodium te Sodium (PF) 50 (PF) 50 (PF) 50 MG/2ML MG/2ML MG/2ML cloNIDine cloNIDine No 1{table QD cloNIDine HCl 0.2 HCl 0.2 t} HCl 0.2 Gabapentin Gabapentin No 1{capsu BID Gabapentin 300 MG 300 MG le} 300 MG Norvasc 5 Norvasc 5 No 1{table QD Norvasc 5 MG MG t} MG Gabapentin Gabapentin No 1{capsu BID Gabapentin 300 300 le} 300 Vitamin D3 Vitamin D3 No 1{capsu QD Vitamin D3 2000 UNIT 2000 UNIT le} 2000 UNIT Flonase 50 Flonase 50 No 1{spray QD Flonase 50 MCG/ACT MCG/ACT _in_eac MCG/ACT h_nostr il} Montelukast Montelukast No 1{table QD Montelukas Sodium 10 Sodium 10 t_in_th t Sodium MG MG e_eveni 10 MG ng} cloNIDine cloNIDine No 1{table QD cloNIDine HCl 0.2 MG HCl 0.2 MG t} HCl 0.2 MG Triamterene Triamterene No 1{table QD Triamteren -HCTZ -HCTZ t_in_th e-HCTZ 37.5-25 MG 37.5-25 MG e_morni 37.5-25 MG ng} Montelukast Montelukast No 1{table QD Montelukas Sodium 10 Sodium 10 t_in_th t Sodium e_eveni 10 ng} Ranitidine Ranitidine No 1{capsu BID Ranitidine HCl 150 MG HCl 150 MG le} HCl 150 MG Crestor 10 Crestor 10 No 1{table QD Crestor 10 MG MG t} MG Folic Acid Folic Acid No QD Folic Acid Xtra - Xtra - Xtra - cloNIDine cloNIDine No cloNIDine HCl 0.2 MG HCl 0.2 MG HCl 0.2 MG Norvasc 5 Norvasc 5 No 1{table QD Norvasc 5 t} Levothyroxi Levothyroxi No QD Levothyrox ne Sodium ne Sodium ine Sodium 50 MCG 50 MCG 50 MCG Methotrexat Methotrexat No Methotrexa e Sodium e Sodium te Sodium (PF) 50 (PF) 50 (PF) 50 MG/2ML MG/2ML MG/2ML cloNIDine cloNIDine No 1{table QD cloNIDine HCl 0.2 HCl 0.2 t} HCl 0.2 Gabapentin Gabapentin No 1{capsu BID Gabapentin 300 MG 300 MG le} 300 MG Crestor 10 Crestor 10 No 1{table QD Crestor 10 MG MG t} MG Gabapentin Gabapentin No 1{capsu BID Gabapentin 300 300 le} 300 Flonase 50 Flonase 50 No 1{spray QD Flonase 50 MCG/ACT MCG/ACT _in_eac MCG/ACT h_nostr il} Montelukast Montelukast No 1{table QD Montelukas Sodium 10 Sodium 10 t_in_th t Sodium MG MG e_eveni 10 MG ng} Vitamin D3 Vitamin D3 No 1{capsu QD Vitamin D3 2000 UNIT 2000 UNIT le} 2000 UNIT cloNIDine cloNIDine No cloNIDine HCl 0.2 MG HCl 0.2 MG HCl 0.2 MG Triamterene Triamterene No 1{table QD Triamteren -HCTZ -HCTZ t_in_th e-HCTZ 37.5-25 MG 37.5-25 MG e_morni 37.5-25 MG ng} Norvasc 5 Norvasc 5 No 1{table QD Norvasc 5 MG MG t} MG Folic Acid Folic Acid No QD Folic Acid Xtra - Xtra - Xtra - Norvasc 5 Norvasc 5 No 1{table QD Norvasc 5 t} cloNIDine cloNIDine No 1{table QD cloNIDine HCl 0.2 MG HCl 0.2 MG t} HCl 0.2 MG Montelukast Montelukast No 1{table QD Montelukas Sodium 10 Sodium 10 t_in_th t Sodium e_eveni 10 ng} Ranitidine Ranitidine No 1{capsu BID Ranitidine HCl 150 MG HCl 150 MG le} HCl 150 MG Methotrexat Methotrexat No Methotrexa e Sodium e Sodium te Sodium (PF) 50 (PF) 50 (PF) 50 MG/2ML MG/2ML MG/2ML Norvasc 5 Norvasc 5 No 1{table QD Norvasc 5 MG MG t} MG Folic Acid Folic Acid No QD Folic Acid Xtra - Xtra - Xtra - cloNIDine cloNIDine No cloNIDine HCl 0.2 MG HCl 0.2 MG HCl 0.2 MG Norvasc 5 Norvasc 5 No 1{table QD Norvasc 5 t} cloNIDine cloNIDine No 1{table QD cloNIDine HCl 0.2 MG HCl 0.2 MG t} HCl 0.2 MG Montelukast Montelukast No 1{table QD Montelukas Sodium 10 Sodium 10 t_in_th t Sodium MG MG e_eveni 10 MG ng} Crestor 10 Crestor 10 No 1{table QD Crestor 10 MG MG t} MG Gabapentin Gabapentin No 1{capsu BID Gabapentin 300 MG 300 MG le} 300 MG Flonase 50 Flonase 50 No 1{spray QD Flonase 50 MCG/ACT MCG/ACT _in_eac MCG/ACT h_nostr il} Montelukast Montelukast No 1{table QD Montelukas Sodium 10 Sodium 10 t_in_th t Sodium e_eveni 10 ng} Vitamin D3 Vitamin D3 No 1{capsu QD Vitamin D3 2000 UNIT 2000 UNIT le} 2000 UNIT cloNIDine cloNIDine No 1{table QD cloNIDine HCl 0.2 HCl 0.2 t} HCl 0.2 Ranitidine Ranitidine No 1{capsu BID Ranitidine HCl 150 MG HCl 150 MG le} HCl 150 MG Triamterene Triamterene No 1{table QD Triamteren -HCTZ -HCTZ t_in_th e-HCTZ 37.5-25 MG 37.5-25 MG e_morni 37.5-25 MG ng} Gabapentin Gabapentin No 1{capsu BID Gabapentin 300 300 le} 300 Montelukast Montelukast No 1{table QD Montelukas Sodium 10 Sodium 10 t_in_th t Sodium e_eveni 10 ng} Methotrexat Methotrexat No Methotrexa e Sodium e Sodium te Sodium (PF) 50 (PF) 50 (PF) 50 MG/2ML MG/2ML MG/2ML Folic Acid Folic Acid No QD Folic Acid Xtra - Xtra - Xtra - Gabapentin Gabapentin No 1{capsu BID Gabapentin 300 300 le} 300 Crestor 10 Crestor 10 No 1{table QD Crestor 10 MG MG t} MG Triamterene Triamterene No 1{table QD Triamteren -HCTZ -HCTZ t_in_th e-HCTZ 37.5-25 MG 37.5-25 MG e_morni 37.5-25 MG ng} Vitamin D3 Vitamin D3 No 1{capsu QD Vitamin D3 2000 UNIT 2000 UNIT le} 2000 UNIT Norvasc 5 Norvasc 5 No 1{table QD Norvasc 5 MG MG t} MG Montelukast Montelukast No 1{table QD Montelukas Sodium 10 Sodium 10 t_in_th t Sodium MG MG e_eveni 10 MG ng} Norvasc 5 Norvasc 5 No 1{table QD Norvasc 5 t} Gabapentin Gabapentin No 1{capsu BID Gabapentin 300 MG 300 MG le} 300 MG cloNIDine cloNIDine No cloNIDine HCl 0.2 MG HCl 0.2 MG HCl 0.2 MG Ranitidine Ranitidine No 1{capsu BID Ranitidine HCl 150 MG HCl 150 MG le} HCl 150 MG cloNIDine cloNIDine No 1{table QD cloNIDine HCl 0.2 MG HCl 0.2 MG t} HCl 0.2 MG cloNIDine cloNIDine No 1{table QD cloNIDine HCl 0.2 HCl 0.2 t} HCl 0.2 Flonase 50 Flonase 50 No 1{spray QD Flonase 50 MCG/ACT MCG/ACT _in_eac MCG/ACT h_nostr il} Montelukast Montelukast No 1{table QD Montelukas Sodium 10 Sodium 10 t_in_th t Sodium e_eveni 10 ng} Methotrexat Methotrexat No Methotrexa e Sodium e Sodium te Sodium (PF) 50 (PF) 50 (PF) 50 MG/2ML MG/2ML MG/2ML Folic Acid Folic Acid No QD Folic Acid Xtra - Xtra - Xtra - Gabapentin Gabapentin No 1{capsu BID Gabapentin 300 300 le} 300 Crestor 10 Crestor 10 No 1{table QD Crestor 10 MG MG t} MG Triamterene Triamterene No 1{table QD Triamteren -HCTZ -HCTZ t_in_th e-HCTZ 37.5-25 MG 37.5-25 MG e_morni 37.5-25 MG ng} Vitamin D3 Vitamin D3 No 1{capsu QD Vitamin D3 2000 UNIT 2000 UNIT le} 2000 UNIT Norvasc 5 Norvasc 5 No 1{table QD Norvasc 5 MG MG t} MG Montelukast Montelukast No 1{table QD Montelukas Sodium 10 Sodium 10 t_in_th t Sodium MG MG e_eveni 10 MG ng} Norvasc 5 Norvasc 5 No 1{table QD Norvasc 5 t} Gabapentin Gabapentin No 1{capsu BID Gabapentin 300 MG 300 MG le} 300 MG cloNIDine cloNIDine No cloNIDine HCl 0.2 MG HCl 0.2 MG HCl 0.2 MG Ranitidine Ranitidine No 1{capsu BID Ranitidine HCl 150 MG HCl 150 MG le} HCl 150 MG cloNIDine cloNIDine No 1{table QD cloNIDine HCl 0.2 MG HCl 0.2 MG t} HCl 0.2 MG cloNIDine cloNIDine No 1{table QD cloNIDine HCl 0.2 HCl 0.2 t} HCl 0.2 Flonase 50 Flonase 50 No 1{spray QD Flonase 50 MCG/ACT MCG/ACT _in_eac MCG/ACT h_nostr il} Crestor 10 Crestor 10 No 1{table QD Crestor 10 MG MG t} MG Gabapentin Gabapentin No 1{capsu BID Gabapentin 300 MG 300 MG le} 300 MG Montelukast Montelukast No 1{table QD Montelukas Sodium 10 Sodium 10 t_in_th t Sodium e_eveni 10 ng} cloNIDine cloNIDine No 1{table QD cloNIDine HCl 0.2 MG HCl 0.2 MG t} HCl 0.2 MG Norvasc 5 Norvasc 5 No 1{table QD Norvasc 5 MG MG t} MG cloNIDine cloNIDine No 1{table QD cloNIDine HCl 0.2 HCl 0.2 t} HCl 0.2 Levothyroxi Levothyroxi No QD Levothyrox ne Sodium ne Sodium ine Sodium 50 MCG 50 MCG 50 MCG Vitamin D3 Vitamin D3 No 1{capsu QD Vitamin D3 2000 UNIT 2000 UNIT le} 2000 UNIT cloNIDine cloNIDine No cloNIDine HCl 0.2 MG HCl 0.2 MG HCl 0.2 MG Ranitidine Ranitidine No 1{capsu BID Ranitidine HCl 150 MG HCl 150 MG le} HCl 150 MG Montelukast Montelukast No 1{table QD Montelukas Sodium 10 Sodium 10 t_in_th t Sodium MG MG e_eveni 10 MG ng} Norvasc 5 Norvasc 5 No 1{table QD Norvasc 5 t} Triamterene Triamterene No 1{table QD Triamteren -HCTZ -HCTZ t_in_th e-HCTZ 37.5-25 MG 37.5-25 MG e_morni 37.5-25 MG ng} Folic Acid Folic Acid No QD Folic Acid Xtra - Xtra - Xtra - Flonase 50 Flonase 50 No 1{spray QD Flonase 50 MCG/ACT MCG/ACT _in_eac MCG/ACT h_nostr il} Gabapentin Gabapentin No 1{capsu BID Gabapentin 300 300 le} 300 Methotrexat Methotrexat No Methotrexa e Sodium e Sodium te Sodium (PF) 50 (PF) 50 (PF) 50 MG/2ML MG/2ML MG/2ML Montelukast Montelukast No 1{table QD Montelukas Sodium 10 Sodium 10 t_in_th t Sodium e_eveni 10 ng} Norvasc 5 Norvasc 5 No 1{table QD Norvasc 5 MG MG t} MG cloNIDine cloNIDine No cloNIDine HCl 0.2 MG HCl 0.2 MG HCl 0.2 MG Ranitidine Ranitidine No 1{capsu BID Ranitidine HCl 150 MG HCl 150 MG le} HCl 150 MG Levothyroxi Levothyroxi No QD Levothyrox ne Sodium ne Sodium ine Sodium 50 MCG 50 MCG 50 MCG cloNIDine cloNIDine No 1{table QD cloNIDine HCl 0.2 HCl 0.2 t} HCl 0.2 Vitamin D3 Vitamin D3 No 1{capsu QD Vitamin D3 2000 UNIT 2000 UNIT le} 2000 UNIT Norvasc 5 Norvasc 5 No 1{table QD Norvasc 5 t} Folic Acid Folic Acid No QD Folic Acid Xtra - Xtra - Xtra - Gabapentin Gabapentin No 1{capsu BID Gabapentin 300 300 le} 300 Gabapentin Gabapentin No 1{capsu BID Gabapentin 300 MG 300 MG le} 300 MG Montelukast Montelukast No 1{table QD Montelukas Sodium 10 Sodium 10 t_in_th t Sodium MG MG e_eveni 10 MG ng} Methotrexat Methotrexat No Methotrexa e Sodium e Sodium te Sodium (PF) 50 (PF) 50 (PF) 50 MG/2ML MG/2ML MG/2ML Flonase 50 Flonase 50 No 1{spray QD Flonase 50 MCG/ACT MCG/ACT _in_eac MCG/ACT h_nostr il} Triamterene Triamterene No 1{table QD Triamteren -HCTZ -HCTZ t_in_th e-HCTZ 37.5-25 MG 37.5-25 MG e_morni 37.5-25 MG ng} Crestor 10 Crestor 10 No 1{table QD Crestor 10 MG MG t} MG Levothyroxi Levothyroxi No QD Levothyrox ne Sodium ne Sodium ine Sodium 50 MCG 50 MCG 50 MCG Vitamin D3 Vitamin D3 No 1{capsu QD Vitamin D3 2000 UNIT 2000 UNIT le} 2000 UNIT Montelukast Montelukast No 1{table QD Montelukas Sodium 10 Sodium 10 t_in_th t Sodium e_eveni 10 ng} Flonase 50 Flonase 50 No 1{spray QD Flonase 50 MCG/ACT MCG/ACT _in_eac MCG/ACT h_nostr il} Gabapentin Gabapentin No 1{capsu BID Gabapentin 300 MG 300 MG le} 300 MG Crestor 10 Crestor 10 No 1{table QD Crestor 10 MG MG t} MG Gabapentin Gabapentin No 1{capsu BID Gabapentin 300 300 le} 300 Norvasc 5 Norvasc 5 No 1{table QD Norvasc 5 t} Folic Acid Folic Acid No QD Folic Acid Xtra - Xtra - Xtra - Triamterene Triamterene No 1{table QD Triamteren -HCTZ -HCTZ t_in_th e-HCTZ 37.5-25 MG 37.5-25 MG e_morni 37.5-25 MG ng} cloNIDine cloNIDine No 1{table QD cloNIDine HCl 0.2 HCl 0.2 t} HCl 0.2 cloNIDine cloNIDine No cloNIDine HCl 0.2 MG HCl 0.2 MG HCl 0.2 MG Methotrexat Methotrexat No Methotrexa e Sodium e Sodium te Sodium (PF) 50 (PF) 50 (PF) 50 MG/2ML MG/2ML MG/2ML Norvasc 5 Norvasc 5 No 1{table QD Norvasc 5 MG MG t} MG Montelukast Montelukast No 1{table QD Montelukas Sodium 10 Sodium 10 t_in_th t Sodium MG MG e_eveni 10 MG ng} Ranitidine Ranitidine No 1{capsu BID Ranitidine HCl 150 MG HCl 150 MG le} HCl 150 MG cloNIDine cloNIDine No 1{table QD cloNIDine HCl 0.2 MG HCl 0.2 MG t} HCl 0.2 MG Levothyroxi Levothyroxi No QD Levothyrox ne Sodium ne Sodium ine Sodium 50 MCG 50 MCG 50 MCG Vitamin D3 Vitamin D3 No 1{capsu QD Vitamin D3 2000 UNIT 2000 UNIT le} 2000 UNIT Montelukast Montelukast No 1{table QD Montelukas Sodium 10 Sodium 10 t_in_th t Sodium e_eveni 10 ng} Flonase 50 Flonase 50 No 1{spray QD Flonase 50 MCG/ACT MCG/ACT _in_eac MCG/ACT h_nostr il} Gabapentin Gabapentin No 1{capsu BID Gabapentin 300 MG 300 MG le} 300 MG Crestor 10 Crestor 10 No 1{table QD Crestor 10 MG MG t} MG Gabapentin Gabapentin No 1{capsu BID Gabapentin 300 300 le} 300 Norvasc 5 Norvasc 5 No 1{table QD Norvasc 5 t} Folic Acid Folic Acid No QD Folic Acid Xtra - Xtra - Xtra - Triamterene Triamterene No 1{table QD Triamteren -HCTZ -HCTZ t_in_th e-HCTZ 37.5-25 MG 37.5-25 MG e_morni 37.5-25 MG ng} cloNIDine cloNIDine No 1{table QD cloNIDine HCl 0.2 HCl 0.2 t} HCl 0.2 cloNIDine cloNIDine No cloNIDine HCl 0.2 MG HCl 0.2 MG HCl 0.2 MG Methotrexat Methotrexat No Methotrexa e Sodium e Sodium te Sodium (PF) 50 (PF) 50 (PF) 50 MG/2ML MG/2ML MG/2ML Norvasc 5 Norvasc 5 No 1{table QD Norvasc 5 MG MG t} MG Montelukast Montelukast No 1{table QD Montelukas Sodium 10 Sodium 10 t_in_th t Sodium MG MG e_eveni 10 MG ng} Ranitidine Ranitidine No 1{capsu BID Ranitidine HCl 150 MG HCl 150 MG le} HCl 150 MG cloNIDine cloNIDine No 1{table QD cloNIDine HCl 0.2 MG HCl 0.2 MG t} HCl 0.2 MG Folic Acid Folic Acid No QD Folic Acid Xtra - Xtra - Xtra - Montelukast Montelukast No 1{table QD Montelukas Sodium 10 Sodium 10 t_in_th t Sodium e_eveni 10 ng} Crestor 10 Crestor 10 No 1{table QD Crestor 10 MG MG t} MG Flonase 50 Flonase 50 No 1{spray QD Flonase 50 MCG/ACT MCG/ACT _in_eac MCG/ACT h_nostr il} Levothyroxi Levothyroxi No QD Levothyrox ne Sodium ne Sodium ine Sodium 50 MCG 50 MCG 50 MCG Norvasc 5 Norvasc 5 No 1{table QD Norvasc 5 t} Norvasc 5 Norvasc 5 No 1{table QD Norvasc 5 MG MG t} MG Ranitidine Ranitidine No 1{capsu BID Ranitidine HCl 150 MG HCl 150 MG le} HCl 150 MG Methotrexat Methotrexat No Methotrexa e Sodium e Sodium te Sodium (PF) 50 (PF) 50 (PF) 50 MG/2ML MG/2ML MG/2ML cloNIDine cloNIDine No 1{table QD cloNIDine HCl 0.2 HCl 0.2 t} HCl 0.2 cloNIDine cloNIDine No 1{table QD cloNIDine HCl 0.2 MG HCl 0.2 MG t} HCl 0.2 MG Gabapentin Gabapentin No 1{capsu BID Gabapentin 300 MG 300 MG le} 300 MG cloNIDine cloNIDine No cloNIDine HCl 0.2 MG HCl 0.2 MG HCl 0.2 MG Gabapentin Gabapentin No 1{capsu BID Gabapentin 300 300 le} 300 Triamterene Triamterene No 1{table QD Triamteren -HCTZ -HCTZ t_in_th e-HCTZ 37.5-25 MG 37.5-25 MG e_morni 37.5-25 MG ng} Vitamin D3 Vitamin D3 No 1{capsu QD Vitamin D3 2000 UNIT 2000 UNIT le} 2000 UNIT Montelukast Montelukast No 1{table QD Montelukas Sodium 10 Sodium 10 t_in_th t Sodium MG MG e_eveni 10 MG ng} Folic Acid Folic Acid No QD Folic Acid Xtra - Xtra - Xtra - Montelukast Montelukast No 1{table QD Montelukas Sodium 10 Sodium 10 t_in_th t Sodium e_eveni 10 ng} Crestor 10 Crestor 10 No 1{table QD Crestor 10 MG MG t} MG Flonase 50 Flonase 50 No 1{spray QD Flonase 50 MCG/ACT MCG/ACT _in_eac MCG/ACT h_nostr il} Levothyroxi Levothyroxi No QD Levothyrox ne Sodium ne Sodium ine Sodium 50 MCG 50 MCG 50 MCG Norvasc 5 Norvasc 5 No 1{table QD Norvasc 5 t} Norvasc 5 Norvasc 5 No 1{table QD Norvasc 5 MG MG t} MG Ranitidine Ranitidine No 1{capsu BID Ranitidine HCl 150 MG HCl 150 MG le} HCl 150 MG Methotrexat Methotrexat No Methotrexa e Sodium e Sodium te Sodium (PF) 50 (PF) 50 (PF) 50 MG/2ML MG/2ML MG/2ML cloNIDine cloNIDine No 1{table QD cloNIDine HCl 0.2 HCl 0.2 t} HCl 0.2 cloNIDine cloNIDine No 1{table QD cloNIDine HCl 0.2 MG HCl 0.2 MG t} HCl 0.2 MG Gabapentin Gabapentin No 1{capsu BID Gabapentin 300 MG 300 MG le} 300 MG cloNIDine cloNIDine No cloNIDine HCl 0.2 MG HCl 0.2 MG HCl 0.2 MG Gabapentin Gabapentin No 1{capsu BID Gabapentin 300 300 le} 300 Triamterene Triamterene No 1{table QD Triamteren -HCTZ -HCTZ t_in_th e-HCTZ 37.5-25 MG 37.5-25 MG e_morni 37.5-25 MG ng} Vitamin D3 Vitamin D3 No 1{capsu QD Vitamin D3 2000 UNIT 2000 UNIT le} 2000 UNIT Montelukast Montelukast No 1{table QD Montelukas Sodium 10 Sodium 10 t_in_th t Sodium MG MG e_eveni 10 MG ng} cloNIDine cloNIDine No 1{table QD cloNIDine HCl 0.2 MG HCl 0.2 MG t} HCl 0.2 MG Montelukast Montelukast No 1{table QD Montelukas Sodium 10 Sodium 10 t_in_th t Sodium e_eveni 10 ng} Norvasc 5 Norvasc 5 No 1{table QD Norvasc 5 MG MG t} MG Triamterene Triamterene No 1{table QD Triamteren -HCTZ -HCTZ t_in_th e-HCTZ 37.5-25 MG 37.5-25 MG e_morni 37.5-25 MG ng} Levothyroxi Levothyroxi No QD Levothyrox ne Sodium ne Sodium ine Sodium 50 MCG 50 MCG 50 MCG Crestor 10 Crestor 10 No 1{table QD Crestor 10 MG MG t} MG traMADol traMADol No 1{table QD traMADol HCl 50 MG HCl 50 MG t_as_ne HCl 50 MG eded} Gabapentin Gabapentin No 1{capsu BID Gabapentin 300 MG 300 MG le} 300 MG Methotrexat Methotrexat No Methotrexa e Sodium e Sodium te Sodium 2.5 MG 2.5 MG 2.5 MG cloNIDine cloNIDine No 1{table QD cloNIDine HCl 0.2 MG HCl 0.2 MG t} HCl 0.2 MG Montelukast Montelukast No 1{table QD Montelukas Sodium 10 Sodium 10 t_in_th t Sodium e_eveni 10 ng} Norvasc 5 Norvasc 5 No 1{table QD Norvasc 5 MG MG t} MG Triamterene Triamterene No 1{table QD Triamteren -HCTZ -HCTZ t_in_th e-HCTZ 37.5-25 MG 37.5-25 MG e_morni 37.5-25 MG ng} Levothyroxi Levothyroxi No QD Levothyrox ne Sodium ne Sodium ine Sodium 50 MCG 50 MCG 50 MCG Crestor 10 Crestor 10 No 1{table QD Crestor 10 MG MG t} MG traMADol traMADol No 1{table QD traMADol HCl 50 MG HCl 50 MG t_as_ne HCl 50 MG eded} Gabapentin Gabapentin No 1{capsu BID Gabapentin 300 MG 300 MG le} 300 MG Methotrexat Methotrexat No Methotrexa e Sodium e Sodium te Sodium 2.5 MG 2.5 MG 2.5 MG Levothyroxi Levothyroxi No QD Levothyrox ne Sodium ne Sodium ine Sodium 75 MCG 75 MCG 75 MCG Ranitidine Ranitidine No 1{capsu BID Ranitidine HCl 150 MG HCl 150 MG le} HCl 150 MG Flonase 50 Flonase 50 No 1{spray QD Flonase 50 MCG/ACT MCG/ACT _in_eac MCG/ACT h_nostr il} Norvasc 5 Norvasc 5 No 1{table QD Norvasc 5 MG MG t} MG Methotrexat Methotrexat No Methotrexa e Sodium e Sodium te Sodium (PF) 50 (PF) 50 (PF) 50 MG/2ML MG/2ML MG/2ML Crestor 10 Crestor 10 No 1{table QD Crestor 10 MG MG t} MG cloNIDine cloNIDine No 1{table QD cloNIDine HCl 0.2 HCl 0.2 t} HCl 0.2 Gabapentin Gabapentin No 1{capsu BID Gabapentin 300 MG 300 MG le} 300 MG Gabapentin Gabapentin No 1{capsu BID Gabapentin 300 300 le} 300 Vitamin D3 Vitamin D3 No 1{capsu QD Vitamin D3 2000 UNIT 2000 UNIT le} 2000 UNIT cloNIDine cloNIDine No 1{table QD cloNIDine HCl 0.2 MG HCl 0.2 MG t} HCl 0.2 MG Montelukast Montelukast No 1{table QD Montelukas Sodium 10 Sodium 10 t_in_th t Sodium e_eveni 10 ng} Triamterene Triamterene No 1{table QD Triamteren -HCTZ -HCTZ t_in_th e-HCTZ 37.5-25 MG 37.5-25 MG e_morni 37.5-25 MG ng} Norvasc 5 Norvasc 5 No 1{table QD Norvasc 5 t} Montelukast Montelukast No 1{table QD Montelukas Sodium 10 Sodium 10 t_in_th t Sodium MG MG e_eveni 10 MG ng} Folic Acid Folic Acid No QD Folic Acid Xtra - Xtra - Xtra - Claritin 10 Claritin 2020- No 1{table QD Claritin MG MG 12-25 t} 10 MG 00:00 :00 Claritin 10 Claritin 2020- No 1{table QD Claritin MG MG 12-25 t} 10 MG 00:00 :00 Claritin Claritin 2019- No Na Good 1 tablet [facility]00 [facility] Immunizations Ordered Filled Immunization Date Status Comments [facility] e Immunization Name Name Flucelvax - single Flucelvax - single 2022-01-31 Completed [facility] dose syringe dose syringe 15:24:00 - [facility] Flucelvax - single Flucelvax - single 2022-01-31 Completed [facility] dose syringe dose syringe 15:24:00 - [facility] Moderna COVID-19 Moderna COVID-19 2020-09-03 Completed [facility] Vaccine Vaccine 11:38:00 - [facility] Moderna COVID-19 Moderna COVID-19 2020-09-03 Completed [facility] Vaccine Vaccine 11:38:00 - [facility] Moderna COVID-19 Moderna COVID-19 2020-09-03 Completed [facility] Vaccine Vaccine 11:38:00 - [facility] Moderna COVID-19 Moderna COVID-19 2020-09-03 Completed [facility]ine Vaccine 11:38:00 - [facility] Moderna COVID-19 Moderna COVID-19 2020-09-03 Completed [facility]ine Vaccine 11:38:00 - [facility] Moderna COVID-19 Moderna COVID-19 2020-09-03 Completed [facility]ine Vaccine 11:38:00 - [facility] Moderna COVID-19 Moderna COVID-19 2020-09-03 Completed [facility] Vaccine 11:38:00 - [facility] Moderna COVID-19 Moderna COVID-19 2020-09-03 Completed [facility] Vacc[facility] 11:38:00 [facility] Moderna COVID-19 Moderna COVID-19 2020-09-03 Completed [facility]ine Vaccine 11:38:00 [facility] Moderna COVID-19 Moderna COVID-19 2020-09-03 Completed [facility]ine Vaccine 11:38:00 [facility] Moderna COVID-19 Moderna COVID-19 2020-09-03 Completed [facility]ine Vaccine 11:38:00 - [facility] Moderna COVID-19 Moderna COVID-19 2020-09-03 Completed [facility]ine Vaccine 11:38:00 - [facility] Moderna COVID-19 Moderna COVID-19 2020-09-03 Completed [facility]ine Vaccine 11:38:00 - [facility] Moderna COVID-19 Moderna COVID-19 2020-09-03 Completed [facility] Vaccine 11:38:00 - [facility] Moderna COVID-19 Moderna COVID-19 2020-09-03 Completed [facility]ine Vaccine 11:38:00 - [facility] Moderna COVID-19 Moderna COVID-19 2020-09-03 Completed [facility]ine Vaccine 11:38:00 - [facility] Afluria Afluria 2020-01-29 Completed [facility] 10:05:00 - [facility] Afluria Afluria 2020-01-29 Completed [facility] 10:05:00 [facility] Afluria Afluria 2020-01-29 Completed [facility] 10:05:00 [facility] Afluria Afluria 2020-01-29 Completed [facility] 10:05:00 [facility] Afluria Afluria 2020-01-29 Completed [facility] 10:05:00 [facility] Afluria Afluria 2020-01-29 Completed [facility] 10:05:00 - [facility] Afluria Afluria 2020-01-29 Completed [facility] 10:05:00 [facility] Afluria Afluria 2020-01-29 Completed [facility] 10:05:00 [facility] Afluria Afluria 2020-01-29 Completed [facility] 10:05:00 - [facility] Afluria Afluria 2020-01-29 Completed [facility] 10:05:00 [facility] Afluria Afluria 2020-01-29 Completed [facility] 10:05:00 [facility] Afluria Afluria 2020-01-29 Completed [facility] 10:05:00 [facility] Afluria Afluria 2020-01-29 Completed [facility] 10:05:00 - [facility] Afluria Afluria 2020-01-29 Completed [facility] 10:05:00 - [facility] Afluria Afluria 2020-01-29 Completed [facility] 10:05:00 - [facility] Afluria Afluria 2020-01-29 Completed [facility] 10:05:00 - [facility] FluAD FluAD 2018-11-08 Completed [facility] 09:31:00 - [facility] FluAD FluAD 2018-11-08 Completed [facility] 09:31:00 - [facility] FluAD FluAD 2018-11-08 Completed [facility] 09:31:00 - [facility] FluAD FluAD 2018-11-08 Completed [facility] 09:31:00 - [facility] FluAD FluAD 2018-11-08 Completed [facility] 09:31:00 - [facility] FluAD FluAD 2018-11-08 Completed [facility] 09:31:00 - [facility] FluAD FluAD 2018-11-08 Completed [facility] 09:31:00 - [facility] FluAD FluAD 2018-11-08 Completed [facility] 09:31:00 - [facility] FluAD FluAD 2018-11-08 Completed [facility] 09:31:00 - [facility] FluAD FluAD 2018-11-08 Completed [facility] 09:31:00 - [facility] FluAD FluAD 2018-11-08 Completed [facility] 09:31:00 - [facility] FluAD FluAD 2018-11-08 Completed [facility] 09:31:00 - [facility] FluAD FluAD 2018-11-08 Completed [facility] 09:31:00 - [facility] FluAD FluAD 2018-11-08 Completed [facility] 09:31:00 - [facility] FluAD FluAD 2018-11-08 Completed [facility] 09:31:00 - [facility] FluAD FluAD 2018-11-08 Completed [facility] 09:31:00 - [facility] FluAD FluAD 2018-11-08 Completed [facility] 00:00:00 - [facility] FLUZONE HIGH DOSE FLUZONE HIGH DOSE 2017-10-31 Completed [facility] OVER 65 OVER 65 12:06:00 - [facility] FLUZONE HIGH DOSE FLUZONE HIGH DOSE 2017-10-31 Completed [facility] OVER 65 OVER 65 12:06:00 - [facility] FLUZONE HIGH DOSE FLUZONE HIGH DOSE 2017-10-31 Completed [facility] OVER 65 OVER 65 12:06:00 - [facility] FLUZONE HIGH DOSE FLUZONE HIGH DOSE 2017-10-31 Completed [facility] OVER 65 OVER 65 12:06:00 - [facility] FLUZONE HIGH DOSE FLUZONE HIGH DOSE 2017-10-31 Completed [facility] OVER 65 OVER 65 12:06:00 - [facility] FLUZONE HIGH DOSE FLUZONE HIGH DOSE 2017-10-31 Completed [facility] OVER 65 OVER 65 12:06:00 - [facility] FLUZONE HIGH DOSE FLUZONE HIGH DOSE 2017-10-31 Completed [facility] OVER 65 OVER 65 12:06:00 - [facility] FLUZONE HIGH DOSE FLUZONE HIGH DOSE 2017-10-31 Completed [facility] OVER 65 OVER 65 12:06:00 - [facility] FLUZONE HIGH DOSE FLUZONE HIGH DOSE 2017-10-31 Completed [facility] OVER 65 OVER 65 12:06:00 - [facility] FLUZONE HIGH DOSE FLUZONE HIGH DOSE 2017-10-31 Completed [facility] OVER 65 OVER 65 12:06:00 - [facility] FLUZONE HIGH DOSE FLUZONE HIGH DOSE 2017-10-31 Completed [facility] OVER 65 OVER 65 12:06:00 - [facility] FLUZONE HIGH DOSE FLUZONE HIGH DOSE 2017-10-31 Completed [facility] OVER 65 OVER 65 12:06:00 - [facility] FLUZONE HIGH DOSE FLUZONE HIGH DOSE 2017-10-31 Completed [facility] OVER 65 OVER 65 12:06:00 - [facility] FLUZONE HIGH DOSE FLUZONE HIGH DOSE 2017-10-31 Completed [facility] OVER 65 OVER 65 12:06:00 - [facility] FLUZONE HIGH DOSE FLUZONE HIGH DOSE 2017-10-31 Completed [facility] OVER 65 OVER 65 12:06:00 - [facility] FLUZONE HIGH DOSE FLUZONE HIGH DOSE 2017-10-31 Completed [facility] OVER 65 OVER 65 12:06:00 [facility] Prevnar 20 (PCV20) Prevnar 20 (PCV20) Unknown [facility]19 Unknown [facility] Vaccine Vaccine [facility] Fluarix Fluarix Unknown Completed [facility] FluAD FluAD Unknown Completed [facility] Afluria Afluria Unknown Completed [facility] Flucelvax - single Flucelvax - single Unknown Completed [facility] dose syringe dose syringe [facility] FLUZONE HIGH DOSE FLUZONE HIGH DOSE Unknown Completed [facility] OVER 65 OVER 65 - [facility] Prevnar 20 (PCV20) Prevnar 20 (PCV20) Unknown [facility] Moderna COVID-19 Unknown Com[facility] Vaccine Vaccine [facility] Fluarix Fluarix Unknown Completed [facility] FluAD FluAD Unknown Completed [facility] Afluria Afluria Unknown Completed [facility] Flucelvax - single Flucelvax - single Unknown Completed [facility] dose syringe dose syringe [facility] FLUZONE HIGH DOSE FLUZONE HIGH DOSE Unknown Completed [facility] OVER 65 OVER 65 - [facility] Vital Signs Vital Name Observation Time Observation Value Comments Source height 2022-08-21 13:30:00 68 [in_i] [facility] weight 2022-08-21 13:30:00 220 [lb_av] [facility] temperature 2022-08-21 13:30:00 97.3 [degF] [facility] bmi 2022-08-21 13:30:00 33.45 kg/m2 [facility] oximetry 2022-08-21 13:30:00 99 % [facility] respiratory rate 2022-08-21 13:30:00 17 /min Comm on [facility] blood pressure 2022-08-21 13:30:00 137 mm[Hg] [facility] - systolic [facility] blood pressure 2022-08-21 13:30:00 73 mm[Hg] [facility] - diastolic [facility] height 2022-08-21 13:00:00 68 [in_i] [facility] weight 2022-08-21 13:00:00 220 [lb_av] [facility] temperature 2022-08-21 13:00:00 97.3 [degF] [facility] bmi 2022-08-21 13:00:00 33.45 kg/m2 [facility] oximetry 2022-08-21 13:00:00 99 % [facility] respiratory rate 2022-08-21 13:00:00 17 /min Comm on [facility] blood pressure 2022-08-21 13:00:00 137 mm[Hg] [facility] - systolic [facility] blood pressure 2022-08-21 13:00:00 73 mm[Hg] [facility] - diastolic [facility] Height 2021-12-12 00:00:00 68 [in_i] [facility] BMI (Body Mass 2021-12-12 00:00:00 33.5 kg/m2 [facility] Body Weight 2021-12-12 00:00:00 220 [lb_av] [facility] height 2021-12-12 08:20:00 68 [in_i] [facility] weight 2021-12-12 08:20:00 220 [lb_av] [facility] bmi 2021-12-12 08:20:00 33.45 kg/m2 [facility] height 2021-09-28 08:00:00 68 [in_i] [facility] weight 2021-09-28 08:00:00 220 [lb_av] [facility] temperature 2021-09-28 08:00:00 99.1 [degF] [facility] bmi 2021-09-28 08:00:00 33.45 kg/m2 [facility] blood pressure 2021-09-28 08:00:00 125 mm[Hg] [facility] - systolic [facility] blood pressure 2021-09-28 08:00:00 70 mm[Hg] [facility] - diastolic [facility] height 2021-08-15 09:30:00 68 [in_i] [facility] weight 2021-08-15 09:30:00 195 [lb_av] [facility] bmi 2021-08-15 09:30:00 29.65 kg/m2 [facility] blood pressure 2021-08-15 09:30:00 112 mm[Hg] [facility] - systolic [facility] blood pressure 2021-08-15 09:30:00 79 mm[Hg] [facility] - diastolic [facility] height 2021-07-18 08:30:00 68 [in_i] [facility] weight 2021-07-18 08:30:00 195 [lb_av] [facility] temperature 2021-07-18 08:30:00 97.7 [degF] [facility] bmi 2021-07-18 08:30:00 29.65 kg/m2 [facility] blood pressure 2021-07-18 08:30:00 130 mm[Hg] [facility] - systolic [facility] blood pressure 2021-07-18 08:30:00 72 mm[Hg] [facility] - diastolic [facility] height 2021-06-30 10:15:00 68 [in_i] [facility] weight 2021-06-30 10:15:00 195 [lb_av] [facility] bmi 2021-06-30 10:15:00 29.65 kg/m2 [facility] blood pressure 2021-06-30 10:15:00 130 mm[Hg] [facility] - systolic [facility] blood pressure 2021-06-30 10:15:00 72 mm[Hg] [facility] - diastolic [facility] height 2021-03-11 08:00:00 68 [in_i] [facility] weight 2021-03-11 08:00:00 200 [lb_av] [facility] temperature 2021-03-11 08:00:00 97.8 [degF] [facility] bmi 2021-03-11 08:00:00 30.41 kg/m2 [facility] Procedures Procedure Date / Time Performing Clinician Source Performed [id number] 2022-12-20 00:00:00 [facility] [id number] 2022-12-20 00:00:00 [facility] [id number] 2022-12-20 00:00:00 [facility] [id number] 2022-12-18 00:00:00 [facility] [id number] 2022-12-18 00:00:00 [facility] [id number] 2022-12-18 00:00:00 [facility] XR, knee, 4 or more 2021-12-12 00:00:00 Syeda Zaragoza rthopedic view Sports Medicine Hysterectomy Syeda dockery Sports Medicine Encounters Start End Encounter Admission Attending Care Care Encounter Source Date/Time Date/Time Type Type Clinicians Facility Department ID 2022-12-19 [facility] [id number] Common 10:04:00 [facility]ly [facility] 8[address]51 [facility] 2022-11-09 Outpatient Bhakta, STLMLC [facility] [id number] Common 11:20:00 Nikolay 69202 [facility] 2022-11-07 Outpatient Bhakta, STLMLC ST[facility] [id number] Common 14:39:00 Nikolay 27582 [facility] 2022-11-02 Outpatient Bhakta, STLMLC ST[facility]C [id number] Common 10:30:00 Nikolay 22487 [facility] 2022-09-06 Outpatient Bhakta, STLMLC STL[facility]C [id number] Common 09:05:00 Nikolay 94021 [facility] 2022-08-14 Outpatient Bhakta, STLMLC STLMLC [id number] Common 09:39:00 Nikolay 90240 [facility] 2022-08-02 Outpatient SIMRAN, STLMLC STL[facility]C [id number] Common 13:42:00 Ofelia 82333 [facility] 2022-06-26 Outpatient Simran, STLMLC ST[facility]C [id number] Common 09:37:01 Ofelia 52797 [facility] 2022-02-22 Inpatient RAIZA Garrido HCATO [id number] [facility] 12:30:00 Ugonn 42 [facility] 2022-01-27 Outpatient Good, Na STLMLC STLMLC [id number] 2 Common 09:45:01 [facility] 2022-01-03 Outpatient Good, Na STLMLC STLMLC [id number] 2 Common 08:06:00 [facility] 2021-12-08 Outpatient Good, Na STLMLC STLMLC [id number] Common 08:08:00 [facility] 2021-10-04 Outpatient Good, Na STLMLC STLMLC [id number] 2 Common 11:22:00 [facility] 2021-09-26 Outpatient Good, Na STLMLC STLMLC [id number] 2 Common 09:17:00 [facility] 2021-08-23 Outpatient Good, Na STLMLC STLMLC [id number] 2 Common 09:54:00 [facility] 2021-06-27 Outpatient Good, Na STLMLC STLMLC [id number] 2 Common 08:14:00 [facility] 2021-06-24 Outpatient Good, Na STLMLC STLMLC [id number] 2 Common 11:35:01 [facility] 2021-06-07 Outpatient Good, Na STLMLC STLMLC [id number] 2 Common 10:43:00 [facility] 2021-05-18 Outpatient Good, Na STLMLC STLMLC [id number] 2 Common 16:35:00 [facility] 2021-03-23 Outpatient Good, Na STLMLC STLMLC [id number] 2 Common 14:34:30 [facility] 2021-03-23 Outpatient Good, Na STLMLC STLMLC [id number] 2 Common 14:00:26 [facility] 2021-03-23 Outpatient Good, Na STLMLC STLMLC [id number] 2 Common 13:58:30 [facility] 2021-03-23 Outpatient Good, Na STLMLC STLMLC [id number] 2 Common 13:57:22 [facility] 2021-03-23 Outpatient Good, Na STLMLC STLMLC [id number] 2 Common 13:23:44 [id number] [facility] 2021-03-23 Outpatient Good, Na STLMLC STLMLC [id number] 2 Common 12:45:34 16031 [facility] 2021-03-23 Outpatient Good, Na STLMLC STLMLC [id number] 2 Common 12:36:03 05780 [facility] 2021-03-23 Outpatient Good, Na STLMLC STLMLC [id number] 2 Common 12:21:11 92090 [facility] 2021-03-23 Outpatient Good, Na STLMLC STLMLC [id number] 2 Common 12:09:34 [id number] [facility] 2021-03-23 Outpatient Good, Na STLMLC STLMLC [id number] 2 Common 11:58:50 28760 [facility] 2021-03-23 Outpatient Good, Na STLMLC STLMLC [id number] 2 Common 11:33:44 37633 [facility] 2021-03-23 Outpatient Good, Na STLMLC STLMLC [id number] 2 Common 11:31:40 [id number] [facility] 2021-03-23 Outpatient Good, Na STLMLC STLMLC [id number] 2 Common 11:18:14 58981 [facility] 2021-03-23 Outpatient Good, Na STLMLC STLMLC [id number] 2 Common 11:16:56 64970 [facility] 2023-01-01 2023-01-01 Outpatient FOG_Burke_R AOSM AOSM 600 [id number] Syeda 00:00:00 00:00:00 Redd [id number] [facility] 2023-01-01 2023-01-01 Outpatient FOG_Burke_R AOSM AOSM 600 [id number] Syeda 00:00:00 00:00:00 Redd [id number] [facility] 2023-01-01 2023-01-01 Outpatient FOG_Burke_R AOSM AOSM 600 [id number] Syeda 00:00:00 00:00:00 Redd [id number] [facility] 2022-12-25 2022-12-25 Outpatient GC_GCBZW_Ka PRIV PRIV [id number] [facility] 00:00:00 00:00:00 diyala_S [id number] Medic al 2022-12-24 2022-12-24 Outpatient GC_GCBZW_Ka PRIV PRIV [id number] [facility] 00:00:00 00:00:00 diyala_S [id number] Medic al 2022-12-20 2022-12-21 Inpatient SCAR Monzon HCATO SURG [id number] [facility] 15:46:00 16:12:00 Ian 57 [facility] 2022-12-08 2022-12-08 Outpatient CJ MonzonCL BRAYANO [id number] [facility] 16:36:00 16:36:00 Ian Phillips [facility] 2022-10-10 2022-12-08 Outpatient CJ SimmonsTO LABO [id number] [facility] 08:00:00 16:00:00 Ugonnmarquita 25 [place] [facility] 2022-12-08 2022-12-08 Outpatient CJ KerrTO RADI [id number] [facility] 10:50:00 10:50:00 Ian 87 [facility] 2022-11-29 2022-11-29 Outpatient FOG_Burke_R AOSM AOSM 600 [id number] Syeda 00:00:00 00:00:00 Redd [id number] [facility] 2022-11-29 2022-11-29 Outpatient FOG_Burke_R AOSM AOSM 600 [id number] Syeda 00:00:00 00:00:00 Redd [id number] [facility] 2022-11-29 2022-11-29 Outpatient FOG_Burke_R AOSM AOSM 600 [id number] Syeda 00:00:00 00:00:00 Redd [id number] [facility] 2022-11-29 2022-11-29 Outpatient FOG_Burke_R AOSM AOSM 600 [id number] Syeda 00:00:00 00:00:00 Redd [id number] [facility] 2022-11-29 2022-11-29 Outpatient FOG_Burke_R AOSM AOSM 600 [id number] Syeda 00:00:00 00:00:00 Redd [id number] [facility] 2022-11-29 2022-11-29 Outpatient FOG_Burke_R AOSM AOSM 600 [id number] Syeda 00:00:00 00:00:00 Redd [id number] [facility] 2022-11-29 2022-11-29 Outpatient FOG_Burke_R AOSM AOSM 600 [id number] Syeda 00:00:00 00:00:00 Redd [id number] [facility] 2022-11-13 2022-11-13 Outpatient FOG_Burke_R AOSM AOSM 600 [id number] Syeda 00:00:00 00:00:00 Redd [id number] [facility] 2022-11-13 2022-11-13 Outpatient FOG_Burke_R AOSM AOSM 600 [id number] Syeda 00:00:00 00:00:00 Redd [id number] [facility] 2022-11-13 2022-11-13 Outpatient FOG_Burke_R AOSM AOSM 600 [id number] Syeda 00:00:00 00:00:00 Redd [id number] [facility] 2022-10-10 2022-10-10 Outpatient Nealnataliakirbyave HCACL LABO [id number] [facility] 17:10:00 17:10:[address] [place] [address] 2022-10-10 2022-10-10 Outpatient CJ KerrTO 3DAY [id number] [facility] 08:00:00 09:00:00 Ian Owens [facility] 2022-10-09 2022-10-09 Outpatient FOG_Burke_R AOSM AOSM 600 [id number] Syeda 00:00:00 00:00:00 Redd [id number] [facility] 2022-10-09 2022-10-09 Outpatient FOG_Burke_R AOSM AOSM 600 [id number] Syeda 00:00:00 00:00:00 Redd [id number] [facility] 2022-09-05 2022-09-05 Outpatient FOG_Burke_R AOSM AOSM 600 [id number] Syeda 00:00:00 00:00:00 Redd [id number] [facility] 2022-08-21 2022-08-21 [facility] [id number] Co mmon 00:00:00 00:00:00 VISIT [facility] ESTAB PT - CHI LEVEL 4 [facility] 2022-08-21 2022-08-21 [facility] [id number] Common 00:00:00 00:00:00 MCR [facility] WELLNESS - CHI VISIT [facility] 2022-02-08 2022-02-08 (TEL) [facility] [id number] Co mmon 00:00:00 00:00:00 [facility] - [facility] 2022-01-05 2022-01-05 Outpatient FOG_Burke_R AOSM AOSM 600 [id number] Syeda 00:00:00 00:00:00 Redd [id number] [facility] 2022-01-05 2022-01-05 Outpatient FOG_Burke_R AOSM AOSM 600 [id number] Syeda 00:00:00 00:00:00 Redd [id number] [facility] 2022-01-05 2022-01-05 Outpatient FOG_Burke_R AOSM AOSM 600 1080-20 Syeda 00:00:00 00:00:00 Redd [id number] [facility] 2021-12-16 2021-12-16 Outpatient FOG_Burke_R AOSM AOSM 600 [id number] Syeda 00:00:00 00:00:00 Redd [id number] [facility] 2021-12-14 2021-12-14 (TEL) [facility] [id number] Co mmon 00:00:00 00:00:00 [facility] 2021-12-12 2021-12-12 Outpatient FOG_Burke_R AOSM AOSM 600 [id number] Syeda 00:00:00 00:00:00 Redd [id number] [facility] 2021-12-12 2021-12-12 Ugonna N AOSM [place] - Ortho 17 Syeda 00:00:00 00:00:00 Cornelia Garrido MD: [id number] FOG_Ofc dic [facility] Sp[facility], [place] [id number] , Ph. [phone] 2021-12-12 2021-12-12 OFFICE STLMLC STLMLC [id number] Co mmon 00:00:00 00:00:00 VISIT [facility] PT - CHI LEVEL 4 [facility] 2021-12-11 2021-12-11 Outpatient FOG_Burke_R AOSM AOSM 600 [id number] Syeda 00:00:00 00:00:00 Redd [id number] [facility] 2021-12-09 2021-12-09 (TEL) STLMLC STLMLC [id number] Co mmon 00:00:00 00:00:00 [facility] 2021-11-02 2021-11-02 Outpatient FOG_Burke_R AOSM AOSM 600 [id number] Yseda 00:00:00 00:00:00 Redd [id number] [facility] 2021-09-28 2021-09-28 OFFICE STLMLC STLMLC [id number] Co mmon 00:00:00 00:00:00 VISIT [facility] PT - CHI [address] 2021-09-12 2021-09-12 Outpatient FOG_Burke_R AOSM AOSM 600 [id number] Syeda 12:59:00 12:59:00 Redd [id number] [facility] 2021-08-24 2021-08-24 (TEL) STLMLC STLMLC [id number] Co mmon 00:00:00 00:00:00 [facility] 2021-08-15 2021-08-15 OFFICE STLMLC STLMLC [id number] Co mmon 00:00:00 00:00:00 VISIT EST Spir it PT LEVEL 3 [facility] 2021-07-18 2021-07-18 OFFICE STLMLC STLMLC [id number] Co mmon 00:00:00 00:00:00 VISIT EST Spir it PT LEVEL 3 [facility] 2021-07-06 2021-07-06 (TEL) STLMLC STLMLC [id number] Co mmon 00:00:00 00:00:00 [facility] 2021-06-30 2021-06-30 OFFICE STLMLC STLMLC [id number] Co mmon 00:00:00 00:00:00 VISIT NEW [facility] it PT LEVEL 3 - CHI [facility] 2021-06-29 2021-06-29 OL DIG E/M STLMLC STLMLC [id number] Common 00:00:00 00:00:00 SVC 21+ [facility] MIN [facility] 2021-06-24 2021-06-24 (TEL) STLMLC STLMLC [id number] Co mmon 00:00:00 00:00:00 [facility] 2021-03-11 2021-03-11 OFFICE STLMLC STLMLC [id number] Co mmon 00:00:00 00:00:00 VISIT [facility] ESTAB PT - CHI LEVEL 4 [facility] 2020-12-03 2020-12-03 OFFICE STLMLC STLMLC [id number] Co mmon 00:00:00 00:00:00 VISIT [facility] ESTAB PT - CHI LEVEL 4 [facility] 2020-10-06 2020-10-06 (TEL) STLMLC STLMLC [id number] Co mmon 00:00:00 00:00:00 [facility] 2020-09-03 2020-09-03 Outpatient STLMLC STLMLC [id number] Common 00:00:00 00:00:00 [facility] 2020-09-03 2020-09-03 Outpatient STLMLC STLMLC [id number] Common 00:00:00 00:00:00 [facility] 2020-08-23 2020-08-23 (TEL) STLMLC STLMLC [id number] Co mmon 00:00:00 00:00:00 [facility] 2020-06-28 2020-06-28 Outpatient STLMLC STLMLC [id number] Common 00:00:00 00:00:00 [facility] 2020 2020 Outpatient STLMLC STLMLC [id number] Common 00:00:00 00:00:00 [facility] 2020-01-29 2020-01-29 Outpatient STLMLC STLMLC [id number] Common 00:00:00 00:00:00 [facility] 2020-01-29 2020-01-29 Outpatient STLMLC STLMLC [id number] Common 00:00:00 00:00:00 [facility] 2019-09-15 2019-09-15 [facility] [id number] Common 00:00:00 00:00:00 [facility] [place] [address] [facility] 2019-06-16 2019-06-16 [facility] [id number] Common 08:40:00 08:40:00 [place] [address] [facility] 2019-05-30 2019-05-30 [facility] [id number] Common 15:47:00 15:47:00 [place] [address] [facility] 2019-02-07 2019-02-07 [facility] [id number] Common 08:40:00 08:40:00 [place] [address] [facility] 2019-01-30 2019-01-30 [facility] [id number] Common 16:14:00 16:14:00 [place] [address] [facility] 2018-11-08 2018-11-08 [facility] [id number] Common 08:40:00 08:40:00 [place] [address] [facility] 2018-10-22 2018-10-22 [facility] [id number] Common 08:20:00 08:20:00 [place] [address] [facility] 2018-05-06 2018-05-06 [facility] [id number] Common 08:30:00 08:30:00 [place] [address] [facility] Results Test Description Test Time Test Comments Results Result Sour e Comments - XR KNEE 1 OR 2 V 2022-12-19 RT 10:07:00 [facility] : 1960 Sex: F Patient Name: YOUNG FIGUEROA Unit No: [id number] EXAMS: CPT CODE: [id number] XR KNEE 1 OR 2 V RT [id number] IMAGES PROVIDED: 2 FINDINGS: Postoperative changes from right total knee arthoplasty demonstrated without evidence of immediate complication. No acute fracture is visualized. IMPRESSION: Postoperative exam as above. at 1007 Reported and signed by: Brendon Delgadillo M.D. CC: Ian Monzon MD Technologist: RAFFI PEREZ ARRT Transcribed D/ (1007) tNURIASLJ [facility] NAME: YOUNG FIGUEROA [address] [facility] PHYS: Ian Mix MD : 1960 AGE: 62 SEX: F [place], [place] [address] LOC: Y.504 A PHONE #: [phone] EXAM DATE: 12/18/2022 STATUS: ADM IN FAX #: [phone] RAD #: D/C DT PAGE 1 Signed Report Patient Name: YOUNG FIGUEROA Unit No: [id number] EXAMS: CPT CODE: [id number] XR KNEE 1 OR 2 V RT 44477 (Continued) Orig Print D/T: S: 12/20/2022 (0735) [facility] NAME: YOUNG FIGUEROA [address] PHYS: Ian Mix MD : 1960 AGE: 62 SEX: F [place], [place] [address] LOC: Singh Looney PHONE #: [phone] EXAM DATE: 12/18/2022 STATUS: ADM IN FAX #: [phone] RAD #: D/C DT PAGE 2 Signed Report HGB HCT 2022-12-19 06:02:00 Test Item Value Reference Range Interpretation Comme nts HEMOGLOBIN (test code = HGB) 9.2 g/dL 12-16 L HEMATOCRIT (test code = HCT) 27.5 % 37-47 L SPECIMEN COMMENT: POD #1- US EXTREM NON VASC [id number] 08:06:00 [facility] 1960 Sex: F Patient Name: YOUNG FIGUEROA Unit No: [id number] EXAMS: CPT CODE: [id number] US EXTREM NON VASC COMP 48004 TECHNIQUE: Callaway scale and Doppler sonographic evaluation of right knee was performed dedicated to the region of clinical concern. Longitudinal and transverse imaging was performed. COMPARISON: None available. FINDINGS: No right knee effusion is visualized. No evidence of significant solid or cystic mass. Visualized regional musculature demonstrates a normal sonographic appearance. IMPRESSION: No evidence of right knee joint effusion. at 0806 Reported and signed by: Brendon Delgadillo M.D. CC: Carlie Garrido MD Technologist:MONICA N EASLEY, RDMS, RVT Transcribed D/ (08) JanetteSLJ [facility] NAME: YOUNG FIGUEROA [address] [facility] PHYS: UNDEFINED - Undefined Provider : 1960 AGE: 62 SEX: F [place] [address] LOC: Y.RAD PHONE #: [phone] EXAM DATE: 12/08/2022 STATUS: DEP CLI FAX #: [phone] RAD #: D/C DT PAGE 1 Signed Report Patient Name: YOUNG FIGUEROA No: [id number] EXAMS: CPT CODE: [id number] US EXTREM NON VASC COMP 24194 (Continued) Orig PrintD/T: S: 12/11/2022 (0809) [facility] NAME: YOUNG FIGUEROA [address] [facility] PHYS: UNDEFINED - Undefined Provider : 1960 AGE: 62 SEX: F [place] [address] LOC: Y.RAD PHONE #: [phone] EXAM DATE: 12/08/2022 STATUS: DEP CLI FAX #: [phone] RAD #: D/C DT PAGE 2 Signed ReportGLYCOSYLATED HEMOGLOBIN (HA1C)2022-12-08 21:02:00 Test Item Value Reference Range Interpretation Comments GLYCOSYLATED 4.8 % 4.8-5.9 Any condition t hat shortens HEMOGLOBIN (HA1C) erythocyte survival or (test code = GLYHGB) decreas esmean erythrocyte age (e.g., zaida very from acute blood los s,hemolytic anemai) will fa lsely lower HGBA1c resultsr egardless of the method used . HGBA1c results frompat ients with HbSS, HbCC and HbSc must be interpreted wit hcaution given the patho logical processes, incl uding anemia,increase d red cell turnover, trans fusion requirements, t hatadversely impact HGBA1c a s a marker of long-term glycemiccontrol . Alternative for ms of testing such as fructosaminesho uld be considered for these patients.Any co ndition that shortens erytho cyte survival or dec reasesmean erythrocyte age (e.g., recovery from a cute blood loss,hemolytic anemia) will falsely lower H GBA1c resultsregardle ss of the method used. HG BA1c results from patientswi th HbSS, HbCC, and HbSc must be interpreted wit h cautiongiven th e pathological pr ocesses, including anemi a,increased red cell turnov er, transfusion req uirements, thatadversely i mpact HGBA1c as a marker of long-term glycemiccontrol . Alternative for ms of testing such as fructosaminesho uld be considered for these patients.DONE A T: [facility] [address] [facility], [place], [place] [address] GLYCOSYLATED HEMOGLOBIN (HA1C)2022-12-08 21:01:00 Test Item Value Reference Range Interpretation Comments GLYCOSYLATED 4.8 % 4.8-5.9 N Any condition t hat shortens HEMOGLOBIN (HA1C) erythocyte survival or (test code = GLYHGB) decreas esmean erythrocyte age (e.g., zaida very from acute blood los s,hemolytic anemia) will fa lsely lower HGBA1c resultsr egardless of the method used . HGBA1c results from omar birgithomero HbSS, HbCC, and HbSc must be interpreted with cautiongiven th e pathological pr ocesses, including anemi a,increased red cell turnov er, transfusion req uirements, thatadversely i mpact HGBA1c as a marker of long-term glycemiccontrol . Alternative for ms of testing such as fructosaminesho uld be considered for these patients. COMPREHENSIVE METABOLIC [id number] 14:03:00 Test Item Value Reference Range Interpretation Comments SODIUM (test code = 137 mmol/L 136-145 N NA) POTASSIUM (test code 3.8 mmol/L 3.5-5.1 N = K) CHLORIDE (test code 98.0 mmol/L 98-107 N = CL) CARBON DIOXIDE (test 28.9 mmol/L 21-32 N code = CO2) GLUCOSE (test code = 101 mg/dL 74-106 N GLU) BLOOD UREA NITROGEN 16 mg/dL 7-18 N (test code = BUN) GLOMERULAR 102.9 >60 The Glomerular FILTRATION RATE Filtration R ate is a (test code = GFR) calculated parameterbased on serum Creatinin e, patient age and sex. GFR valuesless than 60 mL/min/1.73 squ are meters are snow cative ofChronic Kidne y Disease. Values less than 15 mL/min/1.73squa re meters indicate Kidney failure. The calculation for GFR is based on the CK D-EPI (2020) calculat ion. This formulais race indifferent and is the recommended for juan j for GFRby the N ational Kidney Foundati on for Adults.The GFR will not calculate i f the sex is unknown or if thepatient's ag e is <18 years. CREATININE (test 0.58 mg/dL 0.55-1.02 N code = CREAT) TOTAL PROTEIN (test 7.4 g/dL 6.4-8.2 N code = PROT) ALBUMIN (test code = 3.4 g/dL 3.4-5.0 N ALB) GLOBULIN (test code 4.0 g/dL 2.2-4.2 N = GLOB) ALBUMIN/GLOBULIN 0.9 0.7-2.0 N RATIO (test code = A/G) CALCIUM (test code = 9.2 mg/dL 8.5-10.1 N CA) BILIRUBIN TOTAL 0.80 mg/dL 0.2-1.00 N (test code = BILT) SGOT/AST (test code 57.0 U/L 15-37 H = AST) SGPT/ALT (test code 56.0 U/L 14-59 N = ALT) ALKALINE PHOSPHATASE 109 U/L 46-116 N TOTAL (test code = ALKP) C REACTIVE [id number] 14:02:00 Test Item Value Reference Range Interpretation Comments C REACTIVE PROTEIN 2.54 mg/dL < 0.3 H Please no te new (test code = CRP) normal ran ge. CBC W/AUTO [id number] 12:24:00 Test Item Value Reference Range Interpretation Comments WHITE BLOOD CELL (test 9.9 K/mm3 5.5-11.0 N Pleas e note new code = WBC) normal range. RED BLOOD CELL (test 4.16 M/mm3 4.2-5.4 L code = RBC) HEMOGLOBIN (test code = 13.1 g/dL 12-16 N HGB) HEMATOCRIT (test code = 38.9 % 37-47 N HCT) MEAN CELL VOLUME (test 94 fL 80-98 N code = MCV) MEAN CELL HGB (test code 31.5 pg 27-34 N = MCH) MEAN CELL HGB 33.7 g/dL 30.8-34.1 N CONCENTRATION (test code = MCHC) RED CELL DISTRIBUTION 15.9 % 11-16 N WIDTH (test code = RDW) PLT (test code = PLT) 335 K/mm3 130-400 N MEAN PLATELET VOLUME 9.8 fL 8.9-12.1 N (test code = MPV) NEUTROPHIL % (test code 76.1 % 45-70 H = NT%) LYMPHOCYTE % (test code 17.6 % 20-40 L = LY%) MONOCYTE % (test code = 5.5 % 3-10 N MO%) EOSINOPHIL % (test code 0.0 % 1-5 L = EO%) BASOPHIL % (test code = 0.4 % 0.0-1.1 N BA%) NEUTROPHIL # (test code 7.56 K/mm3 2.00-7.50 H = NT#) LYMPHOCYTE # (test code 1.75 K/mm3 1.50-4.00 N = LY#) MONOCYTE # (test code = 0.55 K/mm3 0.2-0.8 N MO#) EOSINOPHIL # (test code 0.00 K/mm3 0.04-0.4 L = EO#) BASOPHIL # (test code = 0.04 K/mm3 0.02-0.10 N BA#) MANUAL DIFF REQUIRED NO MANUAL DIFF (test code = MDIFF) NUCLEATED RED BLOOD CELL 0 % 0-0 N (test code = NRBC) PROTHROMBIN [id number] 12:24:00 Test Item Value Reference Range Interpretation Comments PROTHROMBIN TIME 12.2 secs 9.4-12.5 N PATIENT (test code = PTP) INTERNATIONAL NORMAL 1.09 <2.0 RECOMME NDED THERAPEUTIC RATIO (test code = RANGE FOR ORAL INR) ANTICOAGULANTTR EATMENT: CONDITION INRPr ophylaxis of venous throm bosis in 2.0 - 3.0 high- risk medical or surg ical patientsTreatme nt of venous thrombos is 2.0 - 3.0Prevention o f embolism 2.0 - 3.0Prevention o f recurrent embol ism, or 3.0 - 4.5 patie nts with mechanical pros thetic intravascular v thompson IS PATIENT ON ANTICOAGULANTS ? NHas Lab been notified if Patient is on Heparin Drip? NOTHROMBOPLASTIN TIME [id number] 12:24:00 Test Item Value Reference Range Interpretation Comments PTT ACTIVATED (test code = APTT) 33.5 secs 25.1-36.5 N IS PATIENT ON ANTICOAGULANTS ? TXas Lab been notified if Patient is on Heparin Drip? NOTSH REFLEX TO FREE [id number] 00:00:00 Test Item Value Reference Range Interpretation Comments TSH REFLEX TO >100.000 UIU/ML See_Comment H [Automated message] FREE T4 (test The system [facility] [employer] [facility] ch code = 19546-5) generated th is result transmitted ref erence range: 0.400-4. 100 UIU/ML. The ref erence range was not u sed to interpret this result as normal/abnor mal. CBC W/AUTO [id number] 00:00:00 Test Item Value Reference Range Interpretation Comments NUCLEATED RBCS (test 0.0 /100 WBC'S See_Comment [Aut omated message] code = 39653-1) The system w [facility] generated this result transmit gin reference range : 0.0 /100 WBC'S. The reference range was not used to interpret this result as normal/abnormal . ABSOLUTE EOSINOPHILS 0.00 K/UL See_Comment [Autom ated message] (test code = The system [facility] 02440-5) generated this result transmit gin reference range : 0.00-0.50 K/UL. The reference range was not used to interpret this result as normal/abnormal . ABSOLUTE LYMPHOCYTES 1.46 K/UL See_Comment [Autom ated message] (test code = The system [facility] 15200-7) generated this result transmit gin reference range : 1.00-4.00 K/UL. The reference range was not used to interpret this result as normal/abnormal . ABSOLUTE MONOCYTES 0.71 K/UL See_Comment [Automat ed message] (test code = The system [facility] 36095-9) generated this result transmit gin reference range : 0.20-1.00 K/UL. The reference range was not used to interpret this result as normal/abnormal . ABSOLUTE NEUTROPHILS 6.05 K/UL See_Comment [Autom ated message] (test code = The system [facility] 59416-9) generated this result transmit gin reference range : 1.50-7.50 K/UL. The reference range was not used to interpret this result as normal/abnormal . BASOPHILS (test code 0.6 % = 89322-3) EOSINOPHILS (test 0.0 % code = 82400-3) HEMATOCRIT (test 37.6 % See_Comment [Automated message] code = 68705-6) The system [employer] generated this result transmit gin reference range : 34.0-45.0 %. Th e reference range was not used to interpret this result as normal/abnormal . HEMOGLOBIN (test 12.7 G/DL See_Comment [Automated message] code = 718-7) The system [facility] generated this result transmit gin reference range : 11.5-15.5 G/DL. The reference range was not used to interpret this result as normal/abnormal . LYMPHOCYTES (test 17.6 % code = 86761-8) MCH (test code = 32.0 PG See_Comment [Automated message] 39965-2) The system [employer] generated this result transmit gin reference range : 25.0-33.0 PG. T he reference range was not used to interpret this result as normal/abnormal . MCHC (test code = 33.8 G/DL See_Comment [Automate d message] 64659-3) The system [employer] generated this result transmit gin reference range : 31.0-36.0 G/DL. The reference range was not used to interpret this result as normal/abnormal . MCV (test code = 94.7 fL See_Comment [Automated message] 58869-3) The system [employer] generated this result transmit gin reference range : 80.0-99.0 fL. T he reference range was not used to interpret this result as normal/abnormal . MONOCYTES (test code 8.6 % = 81690-9) NEUTROPHILS (test 72.8 % code = 92929-2) PLATELET COUNT (test 329 K/UL See_Comment [Autom ated message] code = 80043-7) The system [employer] generated this result transmit gin reference range : 130-400 K/UL. T he reference range was not used to interpret this result as normal/abnormal . RBC (test code = 3.97 M/UL See_Comment [Automated message] 76440-7) The system [employer] generated this result transmit gin reference range : 3.80-5.40 M/UL. The reference range was not used to interpret this result as normal/abnormal . RDW (test code = 14.5 % See_Comment [Automated message] 03593-2) The system [facility] generated this result transmit gin reference range : 11.5-15.0 %. Th e reference range was not used to interpret this result as normal/abnormal . WBC (test code = 8.3 K/UL See_Comment [Automated message] 23956-5) The system [facility] generated this result transmit gin reference range : 3.5-11.0 K/UL. The reference range was not used to interpret this result as normal/abnormal . HEMOGLOBIN [id number] 00:00:00 Test Item Value Reference Range Interpretation Comments HEMOGLOBIN A1c (test 5.0 % See_Comment [Autom ated message] The code = 4548-4) system which generated this result tra nsmitted reference range : 4.2-5.6 %. The referenc e range was not used to interpret this result as normal/abnormal . FREE T4 (THYROXINE)2022-11-21 00:00:00 Test Item Value Reference Range Interpretation Comments FREE T4 0.73 NG/DL See_Comment L [Automated mes rosas] The (THYROXINE) (test system [facility] generated code = 3024-7) this result t ransmitted reference range : 0.80-1.90 NG/DL . The reference range was not used to interpr et this result as normal/abnormal . HEPATITIS C [id number] 00:00:00 Test Item Value Reference Range Interpretation Comments HEPATITIS C ANTIBODY (test code NON-REACTIVE NON-REACTIVE = 18656-1) LIPID PANEL WITH REFLEX DIRECT [id number] 00:00:00 Test Item Value Reference Range Interpretation Comments CALC LDL CHOL (test 62 MG/DL See_Comment [Automa gin message] code = 62537-9) The system [facility] generated this result transmit gin reference range : <100 MG/DL. The reference range was not used to interpret this result as normal/abnormal . CHOLESTEROL (test code 146 MG/DL See_Comment [Aut omated message] = 2093-3) The system [facility] generated this result transmit gin reference range : <200 MG/DL. The reference range was not used to interpret this result as normal/abnormal . HDL CHOLESTEROL (test 71 MG/DL See_Comment [Auto mated message] code = 2085-9) The system [employer] generated this result transmit gin reference range : >39 MG/DL. The refe rence range was not u sed to interpret th is result as normal/abnormal . RISK RATIO LDL/HDL 0.87 RATIO See_Comment [Automat ed message] (test code = 62188-9) The sy stem which generated this result transmit gin reference range : <3.22 RATIO. Th e reference range was not used to interpret this result as normal/abnormal . TRIGLYCERIDES (test 54 MG/DL See_Comment [Automa gin message] code = 2571-8) The system [employer] generated this result transmit gin reference range : <150 MG/DL. The reference range was not used to interpret this result as normal/abnormal . COMPREHENSIVE METABOLIC [id number] 00:00:00 Test Item Value Reference Range Interpretation Comments ALBUMIN (test code = 4.1 G/DL See_Comment [Autom ated message] 1751-7) The system [employer] generated this result transmit gin reference range : 3.5-5.2 G/DL. T he reference range was not used to interpret this result as normal/abnormal . ALKALINE PHOSPHATASE 136 U/L See_Comment [Autom ated message] (test code = 6768-6) The sys tem which generated this result transmit gin reference range : 40-140 U/L. The reference range was not used to interpret this result as normal/abnormal . BILIRUBIN, TOTAL 0.8 MG/DL See_Comment [Automated message] (test code = 1975-2) The sys tem which generated this result transmit gin reference range : <=1.2 MG/DL. Th e reference range was not used to interpret this result as normal/abnormal . BUN (test code = 19 MG/DL See_Comment [Automated message] 3094-0) The system [employer] generated this result transmit gin reference range : 8-23 MG/DL. The reference range was not used to interpret this result as normal/abnormal . CALCIUM (test code = 9.5 MG/DL See_Comment [Autom ated message] 11604-8) The system [employer] generated this result transmit gin reference range : 8.5-10.5 MG/DL. The reference range was not used to interpret this result as normal/abnormal . CALC A/G RATIO (test 1.3 RATIO See_Comment [Autom ated message] code = 1759-0) The system [facility] generated this result transmit gin reference range : 1.0-2.6 RATIO. The reference range was not used to interpret this result as normal/abnormal . CALC BUN/CREAT (test 33 RATIO See_Comment H [Autom ated message] code = 3097-3) The system [facility] generated this result transmit gin reference range : 6-28 RATIO. The reference range was not used to interpret this result as normal/abnormal . CALC GLOBULIN (test 3.2 G/DL See_Comment [Automa gin message] code = 76260-7) The system [facility] generated this result transmit gin reference range : 1.9-3.7 G/DL. T he reference range was not used to interpret this result as normal/abnormal . CARBON DIOXIDE (test 27 MEQ/L See_Comment [Autom ated message] code = 1963-8) The system [facility] generated this result transmit gin reference range : 19-31 MEQ/L. Th e reference range was not used to interpret this result as normal/abnormal . CHLORIDE (test code 99 MEQ/L See_Comment [Automa gin message] = 5-0) The system [facility] generated this result transmit gin reference range : 95-107 MEQ/L. T he reference range was not used to interpret this result as normal/abnormal . CREATININE (test 0.57 MG/DL See_Comment L [Automated message] code = 2160-0) The system [facility] generated this result transmit gin reference range : 0.60-1.30 MG/DL . The reference range was not used to interpret this result as normal/abnormal . eGFR (2020 CKD-EPI) 103 See_Comment [Automa gin message] (test code = ML/MIN/1.73 The system [facility] 15865-9) generated this result transmit gin reference range : >60 ML/MIN/1.73. Th e reference range was not used to interpret this result as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
[2023-01-29 12:20] LABS: Absolute Lymphocytes (CBC) 1.3 K/uL (0.7-4.9); Hematocrit 36.6 % (36.0-45.0); Lymphocytes % 9.7 % (15.3-44.8); MCV 87.7 fL (80-100); MPV 7.8 fL (7.6-11.3); Platelets 433 thou/uL (152-406); RBC Red Blood Cell Count 4.18 M/uL (3.86-4.86)
[2023-01-29] MEDS ORDERED: NA CHLORIDE 0.9% 100 ML ONE (12:38)
[2023-01-29] MEDS ORDERED: PIPERACIL/TAZO 3.375 GM VIAL IV ONE (12:38)
--- NOTE | 2023-01-29 12:51 | EDPHYS ---
Physician Documentation [facility] Name: Young Gates Age: 62 yrs Sex: Female : 1960 Arrival Date: 01/29/2023 Time: 11:28 Bed 5 Private MD: ED Physician Abeba Bhakta HPI: 01/29 11:41 This 62 yrs old Female presents to ER via Unassigned with complaints of bed sore. sp3 11:41 62-year-old female with PMH below now presents ED with ulcer decubitus on the left sp3 sacral area that patient states that she just noticed today. Patient has had prior ulcers in the past. She is not currently being seeing at the wound center. She denies any fever, headache, neck pain, URI symptoms, chest pain, shortness of breath, back pain, other rash, syncope, near syncope or any other signs or symptoms on ROS at this time. Patient is bedridden and requires assistance on all movements.. Historical: - Allergies: 12:56 Ampicillin; ko1 12:56 Azithromycin; ko1 12:56 Lisinopril; ko1 12:56 PENICILLINS; ko1 - PMHx: 12:56 Arthritis; Hypothyroidism; Hypertension; ko1 - Immunization history:: Adult Immunizations unknown. - Social history:: Smoking status: Patient/guardian denies using tobacco, but has a distant history of tobacco abuse. ROS: 11:44 Constitutional: Negative for fever, chills, and weight loss, Eyes: Negative for injury, sp3 pain, redness, and discharge, ENT: Negative for injury, pain, and discharge, Neck: Negative for injury, pain, and swelling, Cardiovascular: Negative for chest pain, palpitations, and edema, Respiratory: Negative for shortness of breath, cough, wheezing, and pleuritic chest pain, Abdomen/GI: Negative for abdominal pain, nausea, vomiting, diarrhea, and constipation, Back: Negative for injury and pain, MS/Extremity: Negative for injury and deformity, Neuro: Negative for headache, weakness, numbness, tingling, and seizure, 11:44 All other systems are negative, Exam: 11:44 Constitutional: This is a well developed, well nourished patient who is awake, alert, sp3 and in no acute distress. Head/Face: Normocephalic, atraumatic. Eyes: Pupils equal round and reactive to light, extra-ocular motions intact. Lids and lashes normal. Conjunctiva and sclera are non-icteric and not injected. Cornea within normal limits. Periorbital areas with no swelling, redness, or edema. Neck: Trachea midline, no thyromegaly or masses palpated, and no cervical lymphadenopathy. Supple, full range of motion without nuchal rigidity, or vertebral point tenderness. No Meningismus. Chest/axilla: Normal chest wall appearance and motion. Nontender with no deformity. No lesions are appreciated. Cardiovascular: Regular rate and rhythm with a normal S1 and S2. No gallops, murmurs, or rubs. Normal PMI, no JVD. No pulse deficits. Respiratory: Lungs have equal breath sounds bilaterally, clear to auscultation and percussion. No rales, rhonchi or wheezes noted. No increased work of breathing, no retractions or nasal flaring. Abdomen/GI: Soft, non-tender, with normal bowel sounds. No distension or tympany. No guarding or rebound. No evidence of tenderness throughout. Back: No spinal tenderness. No costovertebral tenderness. Full range of motion. Psych: Awake, alert, with orientation to person, place and time. Behavior, mood, and affect are within normal limits. 11:44 Skin: Large stage III ulcer decubitus sacral with central dark area and surrounding erythema and inflammation.. Vital Signs: 11:35 BP 102 / 58; Pulse 95; Resp 16; Temp 98.2; Pulse Ox 98% ; ko1 13:32 BP 102 / 80; Pulse 88; Resp 16; Pulse Ox 97% ; ko1 15:42 BP 101 / 77; Pulse 92; Resp 16; Pulse Ox 98% ; Weight 99.79 kg; Height 5 ft. 8 in. ; ko1 15:42 Body Mass Index 33.45 (99.79 kg, 172.72 cm) ko1 MDM: 11:40 Patient medically screened. sp3 11:45 Data reviewed: vital signs, nurses notes, lab test result(s). ED course: 62-year-old sp3 female with inflamed/infected sacral decubitus ulcer. Discussed with wound center who came and evaluated patient and states that patient will likely need debridement. Will admit to hospitalist service and consult surgery on-call for evaluation.. 12/04 11:41 Order name: Wound Culture sp3 01/29 11:43 Order name: Blood Culture Adult (2) sp3 01/29 11:43 Order name: CBC with Diff; Complete Time: 13:16 sp3 01/29 11:43 Order name: CMP; Complete Time: 13:16 sp3 01/29 11:43 Order name: Lactate w/ 2H reflex if indic.; Complete Time: 13:16 sp3 01/29 11:43 Order name: Ptt, Activated; Complete Time: 13:16 sp3 01/29 13:18 Order name: Urinalysis w/ reflexes EDMS 01/29 13:18 Order name: CONS Physician Consult EDMS 01/29 11:41 Order name: Wound dressing: After wound center eval; Complete Time: 12:53 sp3 01/29 11:43 Order name: IV Saline Lock - Large Bore; Complete Time: 11:51 sp3 01/29 11:43 Order name: Labs collected and sent; Complete Time: 12:17 sp3 01/29 11:43 Order name: Vital Signs; Complete Time: 12:57 sp3 Administered Medications: 12:29 Drug: Piperacillin-Tazobactam IVPB 3.375 grams IVPB once over 60 mins; (mix in NS 100 ko1 mL) Route: IVPB; Infused Over: 60 mins; Site: right antecubital; 13:51 Follow up: Response: No adverse reaction; IV Status: Completed infusion; IV Intake: ko1 100ml Disposition Summary: 01/29/23 12:51 Hospitalization Ordered Notes: Provider: Miguel Angel Noland sp3 Condition: Stable sp3 Problem: new sp3 Symptoms: have worsened sp3 Bed/Room Type: Standard sp3 Location: Telemetry/MedSurg (Inpatient)(01/29/23 23:21) Room Assignment: 213(01/29/23 23:21) Diagnosis - Infected decubitus sacral ulcer sp3 Forms: - Medication Reconciliation Form sp3 - SBAR form sp3 - Leadership Thank You Letter sp3 Signatures: Dispatcher [employer] EDJacqui Arana RN RN kl Leal, Jahala, RN RN jl7 Abeba Bhakta MD MD sp3 Luciana Mason RN RN ko1 Corrections: (The following items were deleted from the chart) 14:36 12:51 Inpatient Admission sp3 sb5 15:59 12:51 Telemetry/MedSurg (Inpatient) sp3 jl7 15:59 12:51 sp3 jl7 23:21 15:59 [facility] ER HOLD jl7 kl 23:21 15:59 ERHOLD- jl7 kl
[2023-01-29 13:12] LABS: Albumin 2.7 g/dL (3.4-5.0); Bilirubin Total 0.4 mg/dL (0.2-1.0); Potassium 3.3 mEq/L (3.5-5.1); Protein, Total 7.8 g/dL (6.4-8.2)
--- NOTE | 2023-01-29 13:33 | P.HP ---
Patient History Date of Service: 01/29/23 Reason for admission: sacral decubitus ulcer History of Present Illness: Nette Gates is a 62 year old female with Pmhx HTN, HLD, and hypothyroidism who presents to the ED with C/o of burning to her sacral area. She reports noticing the burning while using the bed corcoran at home. She states she lives with her aunt at this time and is in the bed most of the day because she doesn't want to be a bother to her. Young recently had a right knee surgery with Dr. Monzon from [facility] orthopedic [facility], she was scheduled for a follow up visit tomorrow (01/30) at which time physical therapy would be arranged. Initial vitals reviewed Labratory evaluation: WBC 13.6, BUN creatinine 16/0.65, GFR 100, Serum glucose 131, Lactic 1.3 Young will be admitted to hospitalist service for surgical debridement of sacral decubitus ulcer. Allergies ampicillin Allergy (Verified 10/11/16 09:29) Anaphylaxis azithromycin Allergy (Verified 10/11/16 09:29) Hives lisinopril Allergy (Verified 10/11/16 09:29) kidney failure Home Medications: Amlodipine Besylate [Norvasc] 5 mg PO DAILY 11/29/15 Celecoxib [Celebrex] 200 mg PO DAILY 11/29/15 Cholecalciferol (Vitamin D3) [Vitamin D3] 2,000 unit PO DAILY 11/29/15 Clonidine HCl [Catapres*] 0.2 mg PO DAILY 11/29/15 Fluticasone [Flonase 50mcg Nasal [place]] 2 sprays NS DAILY 11/29/15 Folic Acid 1 mg PO DAILY 11/29/15 Gabapentin [Neurontin] 300 mg PO TID 11/29/15 Levothyroxine [Synthroid] 125 mcg PO [id number] 11/29/15 Rosuvastatin [Crestor] 10 mg PO BEDTIME 11/29/15 Triamterene/Hydrochlorothiazid [Triamterene-Hctz 37.5-25 mg Cp] 1 each PO DAILY 11/29/15 Flaxseed Oil 1,000 mg PO DAILY 11/20/16 [place]-3 Fatty Acids [[place]-3] 100 mg PO DAILY 11/20/16 Potassium 99 mg PO BID 11/20/16 - Past Medical/Surgical History Diabetic: No -: rheumatoid arthritis - Family History Father -: Hypertension, Cancer Notes: prostate cancer Mother -: Hypertension, Stroke - Social History Alcohol use: No CD- Drugs: No Caffeine use: No Review of Systems 10-point ROS is otherwise unremarkable Other: Burning to sacral area Physical Examination - Physical Exam General: Alert, In no apparent distress, Oriented x3 HEENT: Atraumatic, Normocephalic, PERRLA Neck: Supple, 2+ carotid pulse no bruit, JVD not distended Respiratory: Clear to auscultation bilaterally, Normal air movement Cardiovascular: No edema, Normal pulses, Regular rate/rhythm, Normal S1 S2 Capillary refill: <2 Seconds Gastrointestinal: Normal bowel sounds, Soft and benign Musculoskeletal: Other (right TKA) Integumentary: Other (Sacral decubitus ulcer, healing incision to right knee) - Studies Laboratory Data (last 24 hrs) 01/29/23 01/29/23 01/29/23 12:00 12:00 12:00 WBC 13.60 H Hgb 12.0 Hct 36.6 Plt Count 433 H APTT 34.1 Sodium 135 L Potassium 3.3 L BUN 16 Creatinine 0.65 Glucose 131 H Total Bilirubin 0.4 AST 23 ALT 13 Alkaline Phosphatase 120 H Assessment and Plan - Plan Assessment and Plan Sacral decubitus ulcer Dr. Perry consulted, surgery in AM NPO at midnight tanja Paez and flagyl wound and blood cultures sent from ED air mattress ordered wound care per Dr. Perry h/o HTN h/o HLD Hypothyroidism Continue home medications DVT ppx SCD for now, until Dr. Orlando parks for lovenox Full code LOS 2-3 days Discharge Plan: Home - Advance Directives Does patient have a Living Will: No Does patient have a Durable POA for Healthcare: No Time Spent Managing Pts Care (In Minutes): 55
[2023-01-29] MEDS ORDERED: POTASSIUM 25 MEQ EFFERV TAB PO ONE (14:30)
[2023-01-29] MEDS ORDERED: VANCOMYCIN 1 GM in NA CHLORIDE 0.9% 250 ML IVPB SCH (15:00)
[2023-01-29] MEDS ORDERED: Levofloxacin500mg IV 500 MG/100 ML BAG IV SCH (15:00)
[2023-01-29] MEDS ORDERED: POTASSIUM 25 MEQ EFFERV TAB ONE (15:32)
[2023-01-29] MEDS ORDERED: VANCOMYCIN 1 GM/VIAL ONE (15:32)
[2023-01-29] MEDS ORDERED: Levofloxacin500mg IV 0 MG/0 ML BAG IV ONE (15:32)
[2023-01-29] MEDS ORDERED: NA CHLORIDE 0.9% 0 ML ONE (15:32)
[2023-01-29] MEDS ORDERED: METRONIDAZOLE 500mg IVPB 500 MG/100 ML BAG IV ONE (15:33)
[2023-01-29] MEDS ORDERED: VANCOMYCIN 2 GM in NA CHLORIDE 0.9% 500 ML IVPB ONE (16:00)
[2023-01-29] MEDS: METRONIDAZOLE 500mg IVPB 500 MG/100 ML BAG IV SCH (16:11)
[2023-01-29] MEDS ORDERED: Levofloxacin 750mg IV 750 MG/150 ML BAG IV ONE (16:16)
[2023-01-29] MEDS: Levofloxacin 750mg IV 750 MG/150 ML BAG IV SCH (16:44)
[2023-01-29] MEDS: MORPHINE 2 MG/ML SYR IV PRN (16:45)
[2023-01-29] MEDS ORDERED: MORPHINE 2 MG/ML SYR ONE (16:48)
[2023-01-29 16:59] VITALS: BMI 33.4
--- NOTE | 2023-01-29 18:11 | CON ---
Date of Consultation: 01/29/2023 Reason For Consultation: Infected sacral decubitus ulcer. History Of Present Illness: Patient is a 62-year-old female who had a right knee surgery several wee ks ago and following which she was bedridden and has developed a sacral decubitus. She said that it started as a skin breakdown slowly and it progressed. They were taking care of it, but it began to h urt her and she was brought to the ER, and was found to have infected sacral decubitus and I was cons ulted. The patient denies any fever or chills or purulent discharge. Review of Systems: Otherwise, unremarkable. Past Medical History: Hypertension, hyperlipidemia, and hypothyroidism. Past Surgical History: Right knee surgery, hysterectomy. Allergies: INCLUDES AMPICILLIN, AZITHROMYCIN, LISINOPRIL, AND PENICILLIN. Social History: Patient does not smoke or drink alcohol. Family History: Significant for hypertension and prostate cancer in the father and stroke in the mot her with hypertension. Physical Examination: Vital Signs: Stable. She is afebrile. General: She is awake, alert, oriented x3. Head and Neck: No neck masses. No JVD. Throat clear. Neck is supple. Chest: Clear. Heart: S1, S2. Abdomen: Soft. Extremities: Neurovascularly intact. Neuro: Nonfocal. Skin: Sacral region reveals a necrotic eschar approximately 8 x 4 cm in the sacrum and lower back wi th surrounding erythema and warmth. No purulence seen. Laboratory Data: Significant for white count of 13.6 with a left shift. INR is pending. PTT is 34. 1. Chemistry reviewed. She has slight hypokalemia. Lactic acid is 1.3. Assessment: Infected sacral decubitus. Plan: Admit, NPO after midnight, IV antibiotics, and to the OR in the morning for excisional debride ment of an infected sacral decubitus. Patient understands risks, benefits, and alternatives and agre es to procedure. Air mattress has been ordered and patient will probably need dietary consult to imp rove and maximize her nutrition. Patient once discharged can follow up with me [facility]. /MODL Voice ID: [id number] Report ID: [id number]
[2023-01-29] MEDS ORDERED: PIPER TAZO 3.375 GM in NA CHLORIDE 0.9% 100 ML IV SCH (20:00)
--- NOTE | 2023-01-30 01:13 | ER ---
Nurse's Notes [facility] Name: Young Gates Age: 62 yrs Sex: Female : 1960 Arrival Date: 01/29/2023 Time: 11:28 Bed 5 Private MD: Diagnosis: Infected decubitus sacral ulcer Presentation: 01/29 11:35 Chief complaint: EMS states: wound to left buttock that is turning black and odorous. ko1 Coronavirus screen: At this time, the client does not indicate any symptoms associated with coronavirus-19. Ebola Screen: No symptoms or risks identified at this time. Initial Sepsis Screen: Does the patient meet any 2 criteria? No. Patient's initial sepsis screen is negative. Does the patient have a suspected source of infection? No. Patient's initial sepsis screen is negative. Risk Assessment: Do you want to hurt yourself or someone else? Patient reports no desire to harm self or others. Onset of symptoms is unknown. Care prior to arrival: IV initiated. 20 GA, in the right antecubital area. 11:35 Method Of Arrival: EMS: [facility] ko1 11:35 Acuity: KJ 3 ko1 Triage Assessment: 12:56 General: Appears in no apparent distress. uncomfortable, Behavior is calm, cooperative, ko1 appropriate for age. Pain: Denies pain. Historical: - Allergies: 12:56 Ampicillin; ko1 12:56 Azithromycin; ko1 12:56 Lisinopril; ko1 12:56 PENICILLINS; ko1 - PMHx: 12:56 Arthritis; Hypothyroidism; Hypertension; ko1 - Immunization history:: Adult Immunizations unknown. - Social history:: Smoking status: Patient/guardian denies using tobacco, but has a distant history of tobacco abuse. Screenin:32 [facility] ED Fall Risk Assessment (Adult) History of falling in the last 3 months, ko1 including since admission No falls in past 3 months (0 pts) Confusion or Disorientation No (0 pts) Intoxicated or Sedated No (0 pts) Impaired Gait Yes (1 pt) Mobility Assist Device Used Yes (1 pt) Altered Elimination Yes (1 pt) Score/Fall Risk Level 3 or more points = High Risk Oriented to surroundings, Maintained a safe environment, Educated pt \T\ family on fall prevention, incl call for assistance when getting out of bed, Assessed \T\ reinforced patient's understanding of fall precautions, Provided non-skid footwear, Hourly rounding (assess needs \T\ fall precautionary measures) done, Used ambulatory aids as needed (educated on \T\ assisted with), Used gait belt as appropriate Implemented a Fall Risk Plan of Care, Apply high fall risk patient identification: yellow non skid footwear/ fall signage, Remained w/in arm's length of patient and in sight while toileting, Offered frequent toileting (1:1 observation), Remained with patient while ambulating, Utilized family, sitter, or virtual pastry mixer as indicated. Abuse screen: Denies threats or abuse. Denies injuries from another. Nutritional screening: No deficits noted. Tuberculosis screening: No symptoms or risk factors identified. Assessment: 13:32 Neuro: No deficits noted. Cardiovascular: No deficits noted. Respiratory: No deficits ko1 noted. GI: No deficits noted. : No deficits noted. EENT: No deficits noted. Derm: Decubitus located on left buttock is unstageable. is draining small amount malodorous, Reports itching. Musculoskeletal: Vital Signs: 11:35 BP 102 / 58; Pulse 95; Resp 16; Temp 98.2; Pulse Ox 98% ; ko1 13:32 BP 102 / 80; Pulse 88; Resp 16; Pulse Ox 97% ; ko1 15:42 BP 101 / 77; Pulse 92; Resp 16; Pulse Ox 98% ; Weight 99.79 kg; Height 5 ft. 8 in. ; ko1 15:42 Body Mass Index 33.45 (99.79 kg, 172.72 cm) ko1 ED Course: 11:32 Patient arrived in ED. ko1 11:33 Abeba Bhakta MD is Attending Physician. sp3 11:51 Luciana Mason, EUNICE is Primary Nurse. ko1 12:17 Blood Culture Adult (2) Sent. ko1 12:51 Miguel Angel Noland is Hospitalizing Provider. sp3 12:54 Wound Culture Sent. ko1 12:56 Triage completed. ko1 12:56 Arm band placed on right wrist. Patient placed in an exam room, on a stretcher, on ko1 cardiac rehab nurse, on pulse oximetry, Patient notified of wait time. 13:32 No provider procedures requiring assistance completed. Maintain EMS IV. Dressing ko1 intact. Good blood return noted. Site clean \T\ dry. Gauge \T\ site: 20 R AC. 13:32 Patient has correct armband on for positive identification. Placed in gown. Bed in low ko1 position. Call light in reach. Side rails up X2. Provided Education on: na. Pulse ox on. NIBP on. Door closed. Noise minimized. Lights dimmed. Warm blanket given. 17:48 Patient admitted, IV remains in place. ko1 Administered Medications: 12:29 Drug: Piperacillin-Tazobactam IVPB 3.375 grams IVPB once over 60 mins; (mix in NS 100 ko1 mL) Route: IVPB; Infused Over: 60 mins; Site: right antecubital; 13:51 Follow up: Response: No adverse reaction; IV Status: Completed infusion; IV Intake: ko1 100ml Medication: 13:32 VIS not applicable for this client. ko1 Intake: 13:51 IV: 100ml; Total: 100ml. ko1 Outcome: 12:51 Decision to Hospitalize by Provider. sp3 17:48 Admitted to Med/surg ko1 17:48 Condition: stable 17:48 Instructed on the need for admit, 12 01:12 Patient left the ED. nw1 Signatures: Abeba Bhakta MD MD sp3 Luciana Mason, RN RN ko1 Deb Ordoñez RN RN nw1
[2023-01-30] MEDS: MORPHINE 2 MG/ML SYR IV PRN (01:23)
[2023-01-30] MEDS: METRONIDAZOLE 500mg IVPB 500 MG/100 ML BAG IV SCH ×2 (01:24→08:33)
[2023-01-30] MEDS ORDERED: Ringers Lactate 1,000 ML IV ONE (09:19)
[2023-01-30] MEDS ORDERED: ONDANSETRON 4 MG/2 ML VIAL ONE (09:28)
[2023-01-30] MEDS ORDERED: FENTANYL CITR 100 MCG/2 ML ONE (09:29)
[2023-01-30] MEDS ORDERED: MIDAZOLAM HCL 2 MG/2 ML INJ ONE (09:29)
[2023-01-30] MEDS ORDERED: propofoL 200 MG/20 ML VIAL IV ONE (09:29)
[2023-01-30] MEDS ORDERED: LIDOCAINE 2% MPF 5 ML VIAL ONE (09:30)
[2023-01-30] MEDS ORDERED: BUPIVACAINE 0.5% PF 10 ML VIAL ONE (09:33)
[2023-01-30] MEDS: VANCOMYCIN 1.75 GM in NA CHLORIDE 0.9% 500 ML IVPB SCH (09:48)
--- NOTE | 2023-01-30 10:32 | P.PN ---
Date of Service: 01/30/23 Subjective: C/O back pain Concerned with right knee/mobility given recent sx ROS: 10 point ROS as noted above, otherwise negative Physical exam GEN: Alert, oriented, NAD HEENT: Normal conjunctiva, sclera anicteric CV: Regular rate and rhythm, no edema Pulm: Nonlabored respirations on room air ABD: Soft, nontender, nondistended MSK: No joint tenderness Integumentary:Sacral decubitus Neuro: Normal speech, normal affect Vitals reviewed Assessment and Plan Sacral decubitus ulcer Dr. Perry consulted, surgery today Levaquin, vanc, and flagyl Follow blood/wound cultures wound care per Dr. Perry Debility Rheumatoid arthritis Recent right total knee replacement Patient had a fall in late October/early November resulting in right knee pain Ended up having a displaced fracture needing surgery Since then has been using a Scotty lift at home Prior to fracture patient was able to transfer from bed to scooter/wheelchair Now requiring assistance, Scotty lift to get into chair Was supposed to follow-up with orthopedic doctor today 01/30 We will order PT consult Hypertension Hyperlipidemia Hypothyroidism Continue home medications VTE: Start once cleared by surgery Code: Full Dispo: 48 to 72 hours Awaiting cultures, surgery clearance, PT eval Time Spent Managing Pts Care (In Minutes): 35
[2023-01-30] MEDS ORDERED: COLLAGENASE 30 GM OINTMENT TOP ONE (10:37)
--- NOTE | 2023-01-30 10:55 | P.OP ---
Date of Service: 01/30/23 Preop diagnosis: Infected sacral decubitus Postop diagnosis: Same Procedure performed: Excisional debridement of infected sacral decubitus 11 x 9 cm to subcutaneous tissue with pulse irrigation Surgeon: Prashant Perry MD Reserve Operator: None Estimated blood loss: Minimal Specimen: Infected tissue for culture and sensitivity Findings: As above Anesthesia: General Complications: None Drains: None Fluids and blood products: Nonapplicable Disposition: Recovery room Operative note: Patient brought to the OR and placed in supine position. General anesthesia begun. Patient placed in the right lateral position. Patient prepped and draped in the usual sterile fashion. Marcaine 0.5% infiltrated locally. Sharp dissection proceeded around the infected sacral decubitus. Incision was approximately 11 x 9 cm. Dissection proceeded down through the deep subcutaneous tissue to excise all of the necrotic eschar and infected tissue. Bleeding controlled with cautery. Pulse irrigation utilized. More debridement occurred. Infected tissue was closed to the bone. Wound irrigated and bleeding controlled cautery. Then, collagenase dressing with wet-to-dry normal saline used as a dressing to the wound. Sterile dressing applied and patient awakened. Patient taken to recovery room in good general condition. CC:
[2023-01-30] MEDS ORDERED: HYDROCODONE/APAP 7.5/325 MG TAB PO PRN (11:06)
[2023-01-30 11:33] VITALS: O2SAT 99
[2023-01-30] MEDS: HYDROMORPHONE HCL 1 MG/ML INJ IV PRN ×2 (15:34→20:54)
[2023-01-30] MEDS: Levofloxacin 750mg IV 750 MG/150 ML BAG IV SCH (16:29)
[2023-01-30] MEDS: JUVEN PACKET PO SCH (20:54)
[2023-01-31 02:36] LABS: Hematocrit 31.2 % (36.0-45.0); MCV 87.8 fL (80-100); MPV 7.5 fL (7.6-11.3); Platelets 359 thou/uL (152-406); RBC Red Blood Cell Count 3.55 M/uL (3.86-4.86)
[2023-01-31] MEDS: VANCOMYCIN 1.75 GM in NA CHLORIDE 0.9% 500 ML IVPB SCH (04:00)
[2023-01-31 04:54] LABS: Potassium 3.4 mEq/L (3.5-5.1)
[2023-01-31] MEDS: HYDROMORPHONE HCL 1 MG/ML INJ IV PRN ×2 (05:59→10:49)
[2023-01-31] MEDS ORDERED: ONDANSETRON 4 MG/2 ML VIAL IV PRN (07:59)
[2023-01-31] MEDS: JUVEN PACKET PO SCH (08:19)
--- NOTE | 2023-01-31 08:56 | P.PN ---
Date of Service: 01/31/23 Subjective: S/P debridement Having some nausea this morning ROS: 10 point ROS as noted above, otherwise negative Physical exam GEN: Alert, oriented, NAD HEENT: Normal conjunctiva, sclera anicteric CV: Regular rate and rhythm, no edema Pulm: Nonlabored respirations on room air ABD: Soft, nontender, nondistended MSK: No joint tenderness Integumentary:Sacral decubitus Neuro: Normal speech, normal affect Vitals reviewed Assessment and Plan Sepsis secondary to sacral decubitus ulcer SIRS criteria present with elevated WBC, HR>90, source of infection with infected sacral decubitus ulceration Blood cultures obtained in ED, initial lactate <2, S/P debridement 01/30 Levaquin, vanc, and flagyl Follow blood/wound cultures-wound culture prelim gram negative rods wound care per Dr. Perry-plan for possible wound vac Debility Rheumatoid arthritis Recent right total knee replacement Patient had a fall in late October/early November resulting in right knee pain Ended up having a displaced fracture needing surgery Since then has been using a Scotty lift at home Prior to fracture patient was able to transfer from bed to scooter/wheelchair Now requiring assistance, Scotty lift to get into chair Was supposed to follow-up with orthopedic doctor today 01/[address] Monzon her ortho doc- OK with WBAT, no excessive ROM to right knee She will follow up next with with ortho outpatient Hypertension Hyperlipidemia Hypothyroidism Continue home medications VTE: Start once cleared by surgery Code: Full Dispo: 48 to 72 hours Awaiting cultures, surgery clearance, PT eval, home health Time Spent Managing Pts Care (In Minutes): 35
[2023-01-31] MEDS ORDERED: POTASSIUM CL SA 10 MEQ TAB PO ONE (09:00)
[2023-01-31] MEDS ORDERED: VANCOMYCIN 1.75 GM in NA CHLORIDE 0.9% 500 ML IVPB SCH (10:00)
[2023-01-31] MEDS ORDERED: VANCOMYCIN 1.5 GM in NA CHLORIDE 0.9% 500 ML IVPB SCH (10:00)
[2023-01-31] MEDS ORDERED: HYDROCODONE/APAP 7.5/325 MG TAB PO PRN (12:00)
[2023-01-31 14:55] VITALS: BP 121/71; TEMP 97.3
[2023-01-31 15:07] LABS: Potassium 3.9 mEq/L (3.5-5.1)
--- NOTE | 2023-01-31 16:40 | P.DS ---
Admission Date: 01/29/23 Discharge Date: 01/31/23 Disposition: ROUTINE DISCHARGE Discharge Condition: GOOD Reason for Admission: sacral decubitus ulcer Consultations: Dr. Perry general surgery Procedures: Debridement of sacral decubitus ulceration Brief History of Present Illness: Nette Gates is a 62 year old female with Pmhx HTN, HLD, and hypothyroidism who presents to the ED with C/o of burning to her sacral area. She reports noticing the burning while using the bed corcoran at home. She states she lives with her aunt at this time and is in the bed most of the day because she doesn't want to be a bother to her. Young recently had a right knee surgery with Dr. Monzon from [facility] orthopedic clinic, she was scheduled for a follow up visit tomorrow (01/30) at which time physical therapy would be arranged. Initial vitals reviewed Labratory evaluation: WBC 13.6, BUN creatinine 16/0.65, GFR 100, Serum glucose 131, Lactic 1.3 Young will be admitted to hospitalist service for surgical debridement of sacral decubitus ulcer. Hospital Course: Patient presented with pain in her sacral region and found to have an infected sacral ulcer. Dr. Perry was consulted and performed I&D. Post-operatively, patient improved. On day of discharge she remained afebrile, tolerating diet, pain managed with oral medications, and was deemed stable for discharge home with home health. Dr. Perry ordered wound vac to be placed and changed [id number]-[id number]. Discharged with 10 days of levofloxacin and pain medication. Wound cultures were obtained during the hospitalization and preliminary results were growing gram negative rods. Dr. Perry will follow up on culture results and adjust antibiotics if needed. Medications: Levofloxacin 750mg daily x 10 days Hydrocodone 5-325 as needed for pain every 6-8 hours Wound VAC with [facility], Sunday and Sunday Home health Resume home meds and diet Follow-up in the wound healing center in my clinic, call for appointment Activity per orthopedic service Vital Signs/Physical Exam: Temp Pulse Resp BP Pulse Ox 97.3 F 78 19 121/71 100 01/31/23 12:00 01/31/23 12:00 01/31/23 12:00 01/31/23 12:01/31/23 12:00 General: Alert, In no apparent distress, Oriented x3 HEENT: Atraumatic, PERRLA, EOMI Neck: Supple, JVD not distended Respiratory: Clear to auscultation bilaterally, Normal air movement Cardiovascular: Regular rate/rhythm, Normal S1 S2 Gastrointestinal: Normal bowel sounds, No tenderness Musculoskeletal: No tenderness Integumentary: Pressure ulcer (sacral decubitus) Neurological: Normal speech Laboratory Data at Discharge: WBC 10.00 thou/uL (4.3-10.9) 01/31/23 02:22 Hgb 10.4 g/dL (12.0-15.0) L 01/31/23 02:22 Hct 31.2 % (36.0-45.0) L 01/31/23 02:22 Plt Count 359 thou/uL (152-406) 01/31/23 02:22 APTT 34.1 SECONDS (24.3-36.9) 01/29/23 12:00 Sodium 139 mEq/L (136-145) 01/31/23 14:33 Potassium 3.9 mEq/L (3.5-5.1) D 01/31/23 14:33 BUN 24 mg/dL (7-18) H 01/31/23 14:33 Creatinine 0.64 mg/dL (0.55-1.02) 01/31/23 14:33 Glucose 121 mg/dL (74-106) H 01/31/23 14:33 Total Bilirubin 0.4 mg/dL (0.2-1.0) 01/29/23 12:00 AST 23 U/L (15-37) 01/29/23 12:00 ALT 13 U/L (13-56) 01/29/23 12:00 Alkaline Phosphatase 120 U/L (45-117) H 01/29/23 12:00 Home Medications: Amlodipine Besylate [Norvasc] 5 mg PO DAILY 11/29/15 Celecoxib [Celebrex] 200 mg PO DAILY 11/29/15 Cholecalciferol (Vitamin D3) [Vitamin D3] 2,000 unit PO DAILY 11/29/15 Clonidine HCl [Catapres*] 0.2 mg PO DAILY 11/29/15 Fluticasone [Flonase 50MCG Nasal [place]*] 2 sprays NS DAILY 11/29/15 Folic Acid 1 mg PO DAILY 11/29/15 Gabapentin [Neurontin] 300 mg PO TID 11/29/15 Levothyroxine [Synthroid*] 125 mcg PO [id number] 11/29/15 Rosuvastatin [Crestor*] 10 mg PO BEDTIME 11/29/15 Triamterene/Hydrochlorothiazid [Triamterene-Hctz 37.5-25 mg Cp] 1 each PO DAILY 11/29/15 Flaxseed Oil 1,000 mg PO DAILY 11/20/16 [place]-3 Fatty Acids [[place]-3] 100 mg PO DAILY 11/20/16 Potassium 99 mg PO BID 11/20/16 Hydrocodone 5/APAP 325 [Dix 5/325*] 1 tab PO Q8H PRN #15 tab 01/31/23 levoFLOXacin [Levofloxacin] 750 mg PO DAILY 10 Days #10 tab 01/31/23 New Medications: levoFLOXacin [Levofloxacin] 750 mg PO DAILY 10 Days #10 tab Hydrocodone 5/APAP 325 [Dix 5/325*] 1 tab PO Q8H PRN #15 tab PRN Reason: Pain Scale 5-7 (Moderate) Physician Discharge Instructions: Patient presented with pain in her sacral region and found to have an infected sacral ulcer. Dr. Perry was consulted and performed I&D. Post-operatively, patient improved. On day of discharge she remained afebrile, tolerating diet, pain managed with oral medications, and was deemed stable for discharge home with home health. Dr. Perry ordered wound vac to be placed and changed [id number]. Discharged with 10 days of levofloxacin and pain medication. Wound cultures were obtained during the hospitalization and preliminary results were growing gram negative rods. Dr. Perry will follow up on culture results and adjust antibiotics if needed. Medications: Levofloxacin 750mg daily x 10 days Hydrocodone 5-325 as needed for pain every 6-8 hours [facility] Home health Resume home meds and diet Follow-up in the wound healing center in my clinic, call for appointment Activity per orthopedic service Diet: Hi-Protein Activity: No lifting more than 10 lbs Followup: NONE,NONE [Primary Care Provider] - Prashant Perry MD [ACTIVE - CAN ADMIT] - 1-2 Weeks (Patient to come to the wound healing center in my clinic Call [phone] for appointment) Time spent managing pt's care (in minutes): 30
== END 2023-01-31 17:49 | disposition home health service (06) ==
LOC: ER 11:28 → ERHOLD 15:45 → 2ND 01-30 00:21
PROVIDERS: ADMIT Internal Medicine; ATTEND Hospitalist
PROC: 0JB70ZZ Excision of Back Subcutaneous Tissue and Fascia, Open Approach (ICD-10-PCS; principal; 2023-01-29)
DX: L89.153 Pressure ulcer of sacral region, stage 3 (principal); A41.9 Sepsis, unspecified organism; I10 Essential (primary) hypertension; E78.5 Hyperlipidemia, unspecified; E03.9 Hypothyroidism, unspecified; L08.9 Local infection of the skin and subcutaneous tissue, unspecified; I96 Gangrene, not elsewhere classified; R53.81 Other malaise; M06.9 Rheumatoid arthritis, unspecified; Z96.651 Presence of right artificial knee joint; Z88.0 Allergy status to penicillin; Z88.3 Allergy status to other anti-infective agents
CPT/HCPCS: 36415; 80048; 80053; 80202; 83605; 85025; 85027; 85730; 87040; 87070; 87075; 87077; 87186; 87205; 88304; 96365; 97110; 97161; 97530; 99285; G0378; J1170; J2001; J2250; J2270; J2405; J2543; J2704; J3010; J3590; J7040; J7050; J7120

== ENCOUNTER → 2023-04-23 | Emergency (ER) | payer OTHER ==
[~2023-04-23] MED LIST: CEFTRIAXONE 1000 MG/VIAL ONE; KCL 20 MEQ/100 mL IVPB 100 ML IV ONE; NA CHLORIDE 0.9% 1,000 ML ONE; POTASSIUM 25 MEQ EFFERV TAB ONE
--- OUTSIDE RECORDS SUMMARY | 2023-04-23 10:59 | XMS REPORT | Continuity of Care Document ---
Author Name Unknown Address [address] [facility] Jose Alfredo. [address] [place] [address] [facility] thconnect Address [address] [facility]. 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 Name Role Phone Nikolay Bhakta Attending Clinician Unavailable Ofelia KHALIL Attending Clinician Unavailable David Garridoonna N Attending Clinician Unavaila ble Good, Na L Attending Clinician Unavailable TERRI_Luna Attending Clinician Unavailab le FOG_Rachel Attending Clinician Unavaila ble [email or web address]_S Attending Clinician Unavaila ble Ian Monzon Attending Clinician Unavaila ble Tre Admitting Clinician Unavailab le FOG_Rachel Admitting Clinician Unavaila ble [email or web address]_S Admitting Clinician Unavaila ble Ian Monzon Admitting Clinician Unavaila ble David Garridoonna N Admitting Clinician Unavaila ble Payers Payer Name Policy Type Policy Number Effective Date Expirati on Date Source [facility] MCR Dual Complete (HMO-POS D-SNP) [id number] 2020 00:00:00 [facility] - DUAL ELIGIBLE (MEDICARE REPLACEMENT/ADVAN TAGE - HMO) [id number] 2022 00:00:00 [place] - STAR [place]MEDICAID REPLACEMENT - HMO) [id number] 2018 00:00:[address] [facility] - DUAL COMPLETE - DUAL ELIGIBLE - SNP (MEDICARE-MEDICAI D REPLACEMENT HMO) [id number] [facility] - [facility] - [facility] PLAN - DUAL COMPLETE FOCUS (MEDICARE REPLACEMENT HMO) [id number] MEDICAID [id number] 2012 00:00:00 [facility] MEDICARE NOVITAS MB [id number] 2010 00:00:00 [facility] [employer] (Medicaid) [id number] 2018 00:00:00 [facility] Problems Condition Name Condition Details Condition Category Status Onset Date Resolution Date Last Treatment Date Treating Clinician Comments Source Pain of left knee joint Pain of Left Knee Joint Problem Active 2022-02 00:00: 00 [facility] Pain of right knee joint Pain of Right Knee Joint Problem Active 2022-02 00:00: 00 [facility] Closed fracture of distal end of right femur Closed Fracture of Distal End of Right Femur Problem Active 2022-02 0- 00:00: 00 [facility] Post traumatic osteoarthr itis Post Traumatic Osteoarthr itis Problem Active 2021-02 0- 00:00: 00 [facility] Osteoarthr itis of knee Osteoarthr itis of Knee Problem Active 2013-02 0 00:00: 00 [facility] [id number] Seasonal allergic rhinitis due to pollen Problem [facility] [id number] Other closed fracture of proximal end of right tibia, initial encounter Problem [facility] [id number] Other closed fracture of proximal end of right fibula, initial encounter Problem [facility] [id number] Body mass index [BMI] 33.0-33.9, adult Problem [facility] General weakness General weakness Problem [facility] Pain in limb Pain in limb Problem [facility] 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 Problem [facility] Edema Edema leg Problem [facility] [id number] Other closed fracture of distal end of right femur, initial encounter Problem [facility] [id number] Other obesity due to excess calories Problem [facility] Peripheral neuropathy Peripheral neuropathy Problem [facility] Hypertensi on HTN (hypertens ion) Problem [facility] Gastroesop hageal reflux disease GERD (gastroeso phageal reflux disease) Problem [facility] Anemia Anemia Problem [facility] Hypothyroi dism Hypothyroi dism Problem [facility] Rheumatoid arthritis Rheumatoid arthritis Problem [facility] Hyperlipid emia Hyperlipid emia Problem [facility] [id number] +5th digit eff 11/27/19*Ga stroesopha geal reflux disease with esophagiti s Problem [facility] [id number] Neuropathy Problem [facility] [id number] Wheelchair dependence Problem [facility] Knee pain Knee pain Problem [facility] [id number] Chronic seasonal allergic rhinitis Problem [facility] Dependence on wheelchair Uses wheelchair Problem [facility] Acquired genu valgum Valgus deformity, not elsewhere classified , right knee Problem [facility] [id number] Influenza vaccinatio n administer ed at current visit Problem [facility] [id number] Pressure injury of sacral region, stage 4 Problem [facility] [id number] Leukocytos is, unspecifie d type Problem [facility] Allergies, Adverse Reactions, Alerts Allergy Name Allergy Type Status Severity Reaction(s) Onset Date Inactive Date Treating Clinician Comments Source Penicill ins DA Active SV BREAKOUT IN HIVES UNDER THE SKIN 2022-02 0 00:00: 00 [facility] lisinopr il DA Active SV CAUSE ME TO HAVE KIDNEY FAILURE 2022-02 0- 00:00: 00 [facility] iodine DA Active SV THROAT SWELLING UP, DIFFICULTY BREATHING 2022-02 0-23 00:00: 00 [facility] azithrom ycin DA Active SV HIVES 2022-02 0- 00:00: 00 [facility] shellfis h derived FA Active SV THROAT SWELLING UP, DIFFICULTY BREATHING 2022-02 0 00:00: 00 [facility] shrimp FA Active SV THROAT SWELLS, DIFFICULTY BREATHING 2022-02 0 00:00: 00 [facility] crab FA Active SV THROAT SWELLS, DIFFICULTY BREATHING 2022-02 0 00:00: 00 [facility] azithrom ycin DA Active SV HIVES 2022-02 0-13 00:00: 00 [facility] shrimp FA Active SV THROAT SWELLS, DIFFICULTY BREATHING 8-17 00:00: 00 [facility] crab FA Active SV THROAT SWELLS, DIFFICULTY BREATHING 8-17 00:00: 00 [facility] Penicill ins DA Active SV BREAKOUT IN HIVES UNDER THE SKIN 8-17 00:00: 00 [facility] lisinopr il DA Active SV CAUSE ME TO HAVE KIDNEY FAILURE 8-17 00:00: 00 [facility] iodine DA Active SV THROAT SWELLING UP, DIFFICULTY BREATHING 8-17 00:00: 00 [facility] shellfis h derived FA Active SV THROAT SWELLING UP, DIFFICULTY BREATHING 8-17 00:00: 00 [facility] LISINOPR [place] Allergy to substanc e Active 2013-02 0 00:00: 00 [facility] PENICILL IN Allergy to substanc e Active 2013-02 0 00:00: 00 [facility] Amoxicil edwin Allergy to substanc e Active [facility] Ampicill in Allergy to substanc e Active [facility] PENICILL INS Allergy to substanc e Active [facility] SHELLFIS H DERIVED Allergy to substanc e Active [facility] [id number] Drug allergy Active Unknown [facility] Social History Social Habit Start Date Stop Date Quantity Comments Source History of Tobacco Use [facility] Sex Assigned At [facility] Smoking Status Start Date Stop Date Source Never Smoker [facility] Medications Ordered Medication Name Filled Medication Name Start Date Stop Date Current Medication? Ordering Clinician Indication Dosage Frequency Signature (SIG) Comments Components Source Levothyroxi ne Sodium 75 MCG Levothyroxi ne Sodium 75 MCG 2-0 - 00:00: 00 No QD Levothyrox ine Sodium 75 MCG Levothyroxi ne Sodium 75 MCG Levothyroxi ne Sodium 75 MCG 2-0 - 00:00: 00 No QD Levothyrox ine Sodium 75 MCG Levothyroxi ne Sodium 75 MCG Levothyroxi ne Sodium 75 MCG 2-0 07-06 00:00: 00 No QD Levothyrox ine Sodium 75 MCG Levothyroxi ne Sodium 75 MCG Levothyroxi ne Sodium 75 MCG 2-0 - 00:00: 00 No QD Levothyrox ine Sodium 75 MCG Levothyroxi ne Sodium 75 MCG Levothyroxi ne Sodium 75 MCG 2-0 - 00:00: 00 No QD Levothyrox ine Sodium 75 MCG Levothyroxi ne Sodium 75 MCG Levothyroxi ne Sodium 75 MCG 2-0 - 00:00: 00 No QD Levothyrox ine Sodium 75 MCG Levothyroxi ne Sodium 75 MCG Levothyroxi ne Sodium 75 MCG 2-0 - 00:00: 00 No QD Levothyrox ine Sodium 75 MCG Levothyroxi ne Sodium 75 MCG Levothyroxi ne Sodium 75 MCG 2-0 -11 00:00: 00 No QD Levothyrox ine Sodium 75 MCG Levothyroxi ne Sodium 75 MCG Levothyroxi ne Sodium 75 MCG 2-0 -11 00:00: 00 No QD Levothyrox ine Sodium 75 MCG Levothyroxi ne Sodium 75 MCG Levothyroxi ne Sodium 75 MCG 2022-0 5-11 00:00: 00 No QD Levothyrox ine Sodium 75 MCG Flonase 50 MCG/ACT Flonase 50 MCG/ACT 2022-0 5-04 00:00: 00 No 2{spray _in_eac h_nostr il} QD Flonase 50 MCG/ACT Flonase 50 MCG/ACT Flonase 50 MCG/ACT 2022-0 5-04 00:00: 00 No 2{spray _in_eac h_nostr il} QD Flonase 50 MCG/ACT Flonase 50 MCG/ACT Flonase 50 MCG/ACT 2022-0 5-04 00:00: 00 No 2{spray _in_eac h_nostr il} QD Flonase 50 MCG/ACT Flonase 50 MCG/ACT Flonase 50 MCG/ACT 2022-0 5-04 00:00: 00 No 2{spray _in_eac h_nostr il} QD Flonase 50 MCG/ACT Flonase 50 MCG/ACT Flonase 50 MCG/ACT 2022-0 5-04 00:00: 00 No 2{spray _in_eac h_nostr il} QD Flonase 50 MCG/ACT Flonase 50 MCG/ACT Flonase 50 MCG/ACT 2-0 5-04 00:00: 00 No 2{spray _in_eac h_nostr il} QD Flonase 50 MCG/ACT Flonase 50 MCG/ACT Flonase 50 MCG/ACT 2022-0 5-04 00:00: 00 No 2{spray _in_eac h_nostr il} QD Flonase 50 MCG/ACT Flonase 50 MCG/ACT Flonase 50 MCG/ACT 2022-0 5-04 00:00: 00 No 2{spray _in_eac h_nostr il} QD Flonase 50 MCG/ACT Flonase 50 MCG/ACT Flonase 50 MCG/ACT 2022-0 5-04 00:00: 00 No 2{spray _in_eac h_nostr il} QD Flonase 50 MCG/ACT Flonase 50 MCG/ACT Flonase 50 MCG/ACT 2022-0 5-04 00:00: 00 No 2{spray _in_eac h_nostr il} QD Flonase 50 MCG/ACT Flonase 50 MCG/ACT Flonase 50 MCG/ACT 2021-06-29 00:00: 00 No 2{spray _in_eac h_nostr il} QD Flonase 50 MCG/ACT Flonase 50 MCG/ACT Flonase 50 MCG/ACT 06-29 00:00: 00 No 2{spray _in_eac h_nostr il} QD Flonase 50 MCG/ACT Ranitidine HCl Ranitidine HCl 05-06 00:00: 00 Yes Na Godo 1 capsule [facility] amlodipine 2.5 mg tablet amlodipine 2.5 mg tablet 2013-02 00:00: 00 No amlodipine 2.5 mg tablet [facility] gabapentin 600 mg tablet gabapentin 600 mg tablet 2013-02 00:00: 00 No gabapentin 600 mg tablet [facility] amlodipine 2.5 mg tablet amlodipine 2.5 mg tablet 2013-02 00:00: 00 No amlodipine 2.5 mg tablet [facility] gabapentin 600 mg tablet gabapentin 600 mg tablet 2013-02 00:00: 00 No gabapentin 600 mg tablet [facility] methotrexat e sodium 2.5 mg tablet methotrexat e sodium 2.5 mg tablet No methotrexa te sodium 2.5 mg tablet [facility] metronidazo le 500 mg tablet metronidazo le 500 mg tablet No metronidaz ole 500 mg tablet [facility] montelukast 10 mg tablet montelukast 10 mg tablet No montelukas t 10 mg tablet [facility] rosuvastati n 10 mg tablet rosuvastati n 10 mg tablet No rosuvastat in 10 mg tablet [facility] Santyl 250 unit/gram topical ointment Santyl 250 unit/gram topical ointment No Santyl 250 unit/gram topical ointment [facility] triamterene 37.5 mg-hydrochl orothiazide 25 mg tablet triamterene 37.5 mg-hydrochl orothiazide 25 mg tablet No triamteren e 37.5 mg-hydroch lorothiazi de 25 mg tablet [facility] clonidine HCl 0.2 mg tablet TAKE 1 TABLET BY MOUTH EVERY DAY clonidine HCl 0.2 mg tablet TAKE 1 TABLET BY MOUTH EVERY DAY No clonidine HCl 0.2 mg tablet TAKE 1 TABLET BY MOUTH EVERY DAY [facility] amlodipine 5 mg tablet amlodipine 5 mg tablet No amlodipine 5 mg tablet [facility] aspirin 81 mg tablet,scarlett yed release Take 1 tablet twice a day by oral route as directed. aspirin 81 mg tablet,scarlett yed release Take 1 tablet twice a day by oral route as directed. No 1 BID aspirin 81 mg tablet,del ayed release Take 1 tablet twice a day by oral route as directed. [facility] celecoxib 200 mg capsule Take 1 capsule twice a day by oral route with meals for 30 days. celecoxib 200 mg capsule Take 1 capsule twice a day by oral route with meals for 30 days. No 1capsul e(s) BID celecoxib 200 mg capsule Take 1 capsule twice a day by oral route with meals for 30 days. [facility] ciprofloxac in 500 mg tablet ciprofloxac in 500 mg tablet No ciprofloxa dena 500 mg tablet [facility] clonidine HCl 0.2 mg tablet TAKE 1 TABLET BY MOUTH EVERY DAY clonidine HCl 0.2 mg tablet TAKE 1 TABLET BY MOUTH EVERY DAY No clonidine HCl 0.2 mg tablet TAKE 1 TABLET BY MOUTH EVERY DAY [facility] Colace 100 mg capsule Take 1 capsule every day by oral route as needed for 30 days. Take only if exhibiting constipatio n symptoms Colace 100 mg capsule Take 1 capsule every day by oral route as needed for 30 days. Take only if exhibiting constipatio n symptoms No 1capsul e(s) Q1D Colace 100 mg capsule Take 1 capsule every day by oral route as needed for 30 days. Take only if exhibiting constipati on symptoms [facility] doxycycline hyclate 100 mg capsule Take 1 capsule twice a day by oral route as directed for 10 days. doxycycline hyclate 100 mg capsule Take 1 capsule twice a day by oral route as directed for 10 days. No 1capsul e(s) BID doxycyclin e hyclate 100 mg capsule Take 1 capsule twice a day by oral route as directed for 10 days. [facility] fluocinonid e 0.05 % topical cream fluocinonid e 0.05 % topical cream No fluocinoni de 0.05 % topical cream [facility] fluticasone propionate 50 mcg/actuati on nasal spray,suspe nsion fluticasone propionate 50 mcg/actuati on nasal spray,suspe nsion No fluticason e propionate 50 mcg/actuat ion nasal spray,susp ension [facility] gabapentin 300 mg capsule gabapentin 300 mg capsule No gabapentin 300 mg capsule [facility] hydrocodone 5 mg-acetamin ophen 325 mg tablet TAKE 1 TABLET BY MOUTH EVERY 8 HOURS NEEDED FOR PAIN (SCALE 5-7) hydrocodone 5 mg-acetamin ophen 325 mg tablet TAKE 1 TABLET BY MOUTH EVERY 8 HOURS NEEDED FOR PAIN (SCALE 5-7) No hydrocodon e 5 mg-acetami nophen 325 mg tablet TAKE 1 TABLET BY MOUTH EVERY 8 HOURS NEEDED FOR PAIN (SCALE 5-7) [facility] levofloxaci n 750 mg tablet TAKE 1 TABLET BY MOUTH ONCE DAILY levofloxaci n 750 mg tablet TAKE 1 TABLET BY MOUTH ONCE DAILY No levofloxac in 750 mg tablet TAKE 1 TABLET BY MOUTH ONCE DAILY [facility] levothyroxi ne 50 mcg tablet levothyroxi ne 50 mcg tablet No levothyrox ine 50 mcg tablet [facility] levothyroxi ne 75 mcg tablet levothyroxi ne 75 mcg tablet No levothyrox ine 75 mcg tablet [facility] methocarbam ol 500 mg tablet Take 1 tablet 4 times a day by oral route as needed. methocarbam ol 500 mg tablet Take 1 tablet 4 times a day by oral route as needed. No 1 QID methocarba mol 500 mg tablet Take 1 tablet 4 times a day by oral route as needed. [facility] methotrexat e sodium (PF) 25 mg/mL injection solution INJECT 0.8ML UNDER THE SKIN ONCE A WEEK methotrexat e sodium (PF) 25 mg/mL injection solution INJECT 0.8ML UNDER THE SKIN ONCE A WEEK No methotrexa te sodium (PF) 25 mg/mL injection solution INJECT 0.8ML UNDER THE SKIN ONCE A WEEK [facility] Crestor Crestor Yes Na Good 1 tablet [facility] Clonidine HCl Clonidine HCl Yes Na Good 1 tablet [facility] Folic Acid XTRA Folic Acid XTRA Yes Na Good 1 tab [facility] Triamterene -HCTZ Triamterene -HCTZ Yes Na Good 1 tablet in the morning [facility] Norvasc Norvasc Yes Na Good 1 tablet [facility] Flonase Flonase Yes Na Good 1 spray in each nostril [facility] Montelukast Sodium Montelukast Sodium Yes Na Good 1 tablet in the evening [facility] Gabapentin Gabapentin Yes Na Good 1 capsule [facility] Levothyroxi ne Sodium Levothyroxi ne Sodium Yes Na Good 1 tablet on an empty stomach in the morning [facility] Vitamin D3 Vitamin D3 Yes Na Good 1 capsule [facility] Clonidine HCl Clonidine HCl Yes Na Good 1 tablet [facility] Methotrexat e Sodium (PF) Methotrexat e Sodium (PF) Yes Na Good INJECT 0.8 ML SUBCUTANEO USLY ONCE EVERY WEEK. [facility] Fluconazole 150 MG Fluconazole 150 MG No 1{table t} Fluconazol e 150 MG Montelukast Sodium 10 Montelukast Sodium 10 No 1{table t_in_th e_eveni ng} QD Montelukas t Sodium 10 Rosuvastati n Calcium 10 MG Rosuvastati n Calcium 10 MG No Rosuvastat in Calcium 10 MG Methotrexat e Sodium 2.5 MG Methotrexat e Sodium 2.5 MG No Methotrexa te Sodium 2.5 MG Fluticasone Propionate 50 MCG/ACT Fluticasone Propionate 50 MCG/ACT No 1{spray _in_eac h_nostr il} QD Fluticason e Propionate 50 MCG/ACT Polyethylen e Glycol 3350 17 GM/SCOOP Polyethylen e Glycol 3350 17 GM/SCOOP No QD Polyethyle ne Glycol 3350 17 GM/SCOOP metroNIDAZO LE 500 MG metroNIDAZO LE 500 MG No 1{table t} TID metroNIDAZ OLE 500 MG Levothyroxi ne Sodium 50 MCG Levothyroxi ne Sodium 50 MCG No QD Levothyrox ine Sodium 50 MCG Triamterene -HCTZ 37.5-25 MG Triamterene -HCTZ 37.5-25 MG No 1{table t_in e_morni ng} QD Triamteren e-HCTZ 37.5-25 MG Ciprofloxac in HCl 500 MG Ciprofloxac in HCl 500 MG No 1{table t} BID Ciprofloxa dena HCl 500 MG Norvasc 5 MG Norvasc 5 MG No 1{table t} QD Norvasc 5 MG Gabapentin 300 MG Gabapentin 300 MG No 1{capsu le} BID Gabapentin 300 MG cloNIDine HCl 0.2 MG cloNIDine HCl 0.2 MG No 1{table t} QD cloNIDine HCl 0.2 MG Fluconazole 150 MG Fluconazole 150 MG No 1{table t} Fluconazol e 150 MG Montelukast Sodium 10 Montelukast Sodium 10 No 1{table t_in e_eveni ng} QD Montelukas t Sodium 10 Rosuvastati n Calcium 10 MG Rosuvastati n Calcium 10 MG No Rosuvastat in Calcium 10 MG Methotrexat e Sodium 2.5 MG Methotrexat e Sodium 2.5 MG No Methotrexa te Sodium 2.5 MG Fluticasone Propionate 50 MCG/ACT Fluticasone Propionate 50 MCG/ACT No 1{spray _in_eac h_nostr il} QD Fluticason e Propionate 50 MCG/ACT Polyethylen e Glycol 3350 17 GM/SCOOP Polyethylen e Glycol 3350 17 GM/SCOOP No QD Polyethyle ne Glycol 3350 17 GM/SCOOP metroNIDAZO LE 500 MG metroNIDAZO LE 500 MG No 1{table t} TID metroNIDAZ OLE 500 MG Levothyroxi ne Sodium 50 MCG Levothyroxi ne Sodium 50 MCG No QD Levothyrox ine Sodium 50 MCG Triamterene -HCTZ 37.5-25 MG Triamterene -HCTZ 37.5-25 MG No 1{table t_in e_morni ng} QD Triamteren e-HCTZ 37.5-25 MG Ciprofloxac in HCl 500 MG Ciprofloxac in HCl 500 MG No 1{table t} BID Ciprofloxa dena HCl 500 MG Norvasc 5 MG Norvasc 5 MG No 1{table t} QD Norvasc 5 MG Gabapentin 300 MG Gabapentin 300 MG No 1{capsu le} BID Gabapentin 300 MG cloNIDine HCl 0.2 MG cloNIDine HCl 0.2 MG No 1{table t} QD cloNIDine HCl 0.2 MG cloNIDine HCl 0.2 MG cloNIDine HCl 0.2 MG No 1{table t} QD cloNIDine HCl 0.2 MG Crestor 10 MG Crestor 10 MG No 1{table t} QD Crestor 10 MG Fluconazole 150 MG Fluconazole 150 MG No 1{table t} Fluconazol e 150 MG Montelukast Sodium 10 Montelukast Sodium 10 No 1{table t_in e_eveni ng} QD Montelukas t Sodium 10 Rosuvastati n Calcium 10 MG Rosuvastati n Calcium 10 MG No Rosuvastat in Calcium 10 MG Methotrexat e Sodium 2.5 MG Methotrexat e Sodium 2.5 MG No Methotrexa te Sodium 2.5 MG Fluticasone Propionate 50 MCG/ACT Fluticasone Propionate 50 MCG/ACT No 1{spray _in_eac h_nostr il} QD Fluticason e Propionate 50 MCG/ACT Polyethylen e Glycol 3350 17 GM/SCOOP Polyethylen e Glycol 3350 17 GM/SCOOP No QD Polyethyle ne Glycol 3350 17 GM/SCOOP metroNIDAZO LE 500 MG metroNIDAZO LE 500 MG No 1{table t} TID metroNIDAZ OLE 500 MG Levothyroxi ne Sodium 50 MCG Levothyroxi ne Sodium 50 MCG No QD Levothyrox ine Sodium 50 MCG Triamterene -HCTZ 37.5-25 MG Triamterene -HCTZ 37.5-25 MG No 1{table t_in e_morni ng} QD Triamteren e-HCTZ 37.5-25 MG Ciprofloxac in HCl 500 MG Ciprofloxac in HCl 500 MG No 1{table t} BID Ciprofloxa dena HCl 500 MG Vitamin D3 2000 UNIT Vitamin D3 2000 UNIT No 1{capsu le} QD Vitamin D3 2000 UNIT Norvasc 5 MG Norvasc 5 MG No 1{table t} QD Norvasc 5 MG Gabapentin 300 MG Gabapentin 300 MG No 1{capsu le} BID Gabapentin 300 MG cloNIDine HCl 0.2 MG cloNIDine HCl 0.2 MG No 1{table t} QD cloNIDine HCl 0.2 MG Triamterene -HCTZ 37.5-25 MG Triamterene -HCTZ 37.5-25 MG No 1{table t_in_th e_morni ng} QD Triamteren e-HCTZ 37.5-25 MG Ranitidine HCl 150 MG Ranitidine HCl 150 MG No 1{capsu le} BID Ranitidine HCl 150 MG cloNIDine HCl 0.2 cloNIDine HCl 0.2 No 1{table t} QD cloNIDine HCl 0.2 Levothyroxi ne Sodium 75 MCG Levothyroxi ne Sodium 75 MCG No QD Levothyrox ine Sodium 75 MCG Methotrexat e Sodium (PF) 50 MG/2ML Methotrexat e Sodium (PF) 50 MG/2ML No Methotrexa te Sodium (PF) 50 MG/2ML Norvasc 5 Norvasc 5 No 1{ta ble t} QD Norvasc 5 Montelukast Sodium 10 Montelukast Sodium 10 No 1{table t_in_th e_eveni ng} QD Montelukas t Sodium 10 Flonase 50 MCG/ACT Flonase 50 MCG/ACT No 1{spray _in_eac h_nostr il} QD Flonase 50 MCG/ACT Gabapentin 300 MG Gabapentin 300 MG No 1{capsu le} BID Gabapentin 300 MG Gabapentin 300 Gabapentin 300 No 1{capsu le} BID Gabapentin 300 Folic Acid Xtra - Folic Acid Xtra - No QD Folic Acid Xtra - Montelukast Sodium 10 MG Montelukast Sodium 10 MG No 1{table t_in_th e_eveni ng} QD Montelukas t Sodium 10 MG Norvasc 5 MG Norvasc 5 MG No 1{table t} QD Norvasc 5 MG Norvasc 5 MG Norvasc 5 MG No 1{table t} QD Norvasc 5 MG Levothyroxi ne Sodium 50 MCG Levothyroxi ne Sodium 50 MCG No QD Levothyrox ine Sodium 50 MCG Crestor 10 MG Crestor 10 MG No 1{table t} QD Crestor 10 MG Montelukast Sodium 10 Montelukast Sodium 10 No 1{table t_in e_eveni ng} QD Montelukas t Sodium 10 cloNIDine HCl 0.2 cloNIDine HCl 0.2 No 1{table t} QD cloNIDine HCl 0.2 Gabapentin 300 Gabapentin 300 No 1{capsu le} BID Gabapentin 300 Vitamin D3 2000 UNIT Vitamin D3 2000 UNIT No 1{capsu le} QD Vitamin D3 2000 UNIT Gabapentin 300 MG Gabapentin 300 MG No 1{capsu le} BID Gabapentin 300 MG Ranitidine HCl 150 MG Ranitidine HCl 150 MG No 1{capsu le} BID Ranitidine HCl 150 MG Flonase 50 MCG/ACT Flonase 50 MCG/ACT No 1{spray _in_eac h_nostr il} QD Flonase 50 MCG/ACT cloNIDine HCl 0.2 MG cloNIDine HCl 0.2 MG No 1{table t} QD cloNIDine HCl 0.2 MG Montelukast Sodium 10 MG Montelukast Sodium 10 MG No 1{table t_in e_eveni ng} QD Montelukas t Sodium 10 MG Folic Acid Xtra - Folic Acid Xtra - No QD Folic Acid Xtra - Norvasc 5 Norvasc 5 No 1{ta ble t} QD Norvasc 5 Methotrexat e Sodium (PF) 50 MG/2ML Methotrexat e Sodium (PF) 50 MG/2ML No Methotrexa te Sodium (PF) 50 MG/2ML Triamterene -HCTZ 37.5-25 MG Triamterene -HCTZ 37.5-25 MG No 1{table t_in e_morni ng} QD Triamteren e-HCTZ 37.5-25 MG Levothyroxi ne Sodium 50 MCG Levothyroxi ne Sodium 50 MCG No QD Levothyrox ine Sodium 50 MCG Vitamin D3 2000 UNIT Vitamin D3 2000 UNIT No 1{capsu le} QD Vitamin D3 2000 UNIT cloNIDine HCl 0.2 MG cloNIDine HCl 0.2 MG No cloNIDine HCl 0.2 MG Flonase 50 MCG/ACT Flonase 50 MCG/ACT No 1{spray _in_eac h_nostr il} QD Flonase 50 MCG/ACT Gabapentin 300 Gabapentin 300 No 1{capsu le} BID Gabapentin 300 Folic Acid Xtra - Folic Acid Xtra - No QD Folic Acid Xtra - Gabapentin 300 MG Gabapentin 300 MG No 1{capsu le} BID Gabapentin 300 MG Crestor 10 MG Crestor 10 MG No 1{table t} QD Crestor 10 MG Norvasc 5 MG Norvasc 5 MG No 1{table t} QD Norvasc 5 MG cloNIDine HCl 0.2 cloNIDine HCl 0.2 No 1{table t} QD cloNIDine HCl 0.2 Triamterene -HCTZ 37.5-25 MG Triamterene -HCTZ 37.5-25 MG No 1{table t_in e_morni ng} QD Triamteren e-HCTZ 37.5-25 MG Ranitidine HCl 150 MG Ranitidine HCl 150 MG No 1{capsu le} BID Ranitidine HCl 150 MG Montelukast Sodium 10 MG Montelukast Sodium 10 MG No 1{table t_in e_eveni ng} QD Montelukas t Sodium 10 MG Norvasc 5 Norvasc 5 No 1{ta ble t} QD Norvasc 5 Montelukast Sodium 10 Montelukast Sodium 10 No 1{table t_in e_eveni ng} QD Montelukas t Sodium 10 Methotrexat e Sodium (PF) 50 MG/2ML Methotrexat e Sodium (PF) 50 MG/2ML No Methotrexa te Sodium (PF) 50 MG/2ML Methotrexat e Sodium (PF) 50 MG/2ML Methotrexat e Sodium (PF) 50 MG/2ML No Methotrexa te Sodium (PF) 50 MG/2ML cloNIDine HCl 0.2 cloNIDine HCl 0.2 No 1{table t} QD cloNIDine HCl 0.2 Gabapentin 300 MG Gabapentin 300 MG No 1{capsu le} BID Gabapentin 300 MG Norvasc 5 MG Norvasc 5 MG No 1{table t} QD Norvasc 5 MG Gabapentin 300 Gabapentin 300 No 1{capsu le} BID Gabapentin 300 Vitamin D3 2000 UNIT Vitamin D3 2000 UNIT No 1{capsu le} QD Vitamin D3 2000 UNIT Flonase 50 MCG/ACT Flonase 50 MCG/ACT No 1{spray _in_eac h_nostr il} QD Flonase 50 MCG/ACT Montelukast Sodium 10 MG Montelukast Sodium 10 MG No 1{table t_in e_eveni ng} QD Montelukas t Sodium 10 MG cloNIDine HCl 0.2 MG cloNIDine HCl 0.2 MG No 1{table t} QD cloNIDine HCl 0.2 MG Triamterene -HCTZ 37.5-25 MG Triamterene -HCTZ 37.5-25 MG No 1{table t_in e_morni ng} QD Triamteren e-HCTZ 37.5-25 MG Montelukast Sodium 10 Montelukast Sodium 10 No 1{table t_in e_eveni ng} QD Montelukas t Sodium 10 Ranitidine HCl 150 MG Ranitidine HCl 150 MG No 1{capsu le} BID Ranitidine HCl 150 MG Crestor 10 MG Crestor 10 MG No 1{table t} QD Crestor 10 MG Folic Acid Xtra - Folic Acid Xtra - No QD Folic Acid Xtra - cloNIDine HCl 0.2 MG cloNIDine HCl 0.2 MG No cloNIDine HCl 0.2 MG Norvasc 5 Norvasc 5 No 1{ta ble t} QD Norvasc 5 Levothyroxi ne Sodium 50 MCG Levothyroxi ne Sodium 50 MCG No QD Levothyrox ine Sodium 50 MCG Methotrexat e Sodium (PF) 50 MG/2ML Methotrexat e Sodium (PF) 50 MG/2ML No Methotrexa te Sodium (PF) 50 MG/2ML cloNIDine HCl 0.2 cloNIDine HCl 0.2 No 1{table t} QD cloNIDine HCl 0.2 Gabapentin 300 MG Gabapentin 300 MG No 1{capsu le} BID Gabapentin 300 MG Norvasc 5 MG Norvasc 5 MG No 1{table t} QD Norvasc 5 MG Gabapentin 300 Gabapentin 300 No 1{capsu le} BID Gabapentin 300 Vitamin D3 2000 UNIT Vitamin D3 2000 UNIT No 1{capsu le} QD Vitamin D3 2000 UNIT Flonase 50 MCG/ACT Flonase 50 MCG/ACT No 1{spray _in_eac h_nostr il} QD Flonase 50 MCG/ACT Montelukast Sodium 10 MG Montelukast Sodium 10 MG No 1{table t_in e_eveni ng} QD Montelukas t Sodium 10 MG cloNIDine HCl 0.2 MG cloNIDine HCl 0.2 MG No 1{table t} QD cloNIDine HCl 0.2 MG Triamterene -HCTZ 37.5-25 MG Triamterene -HCTZ 37.5-25 MG No 1{table t_in e_morni ng} QD Triamteren e-HCTZ 37.5-25 MG Montelukast Sodium 10 Montelukast Sodium 10 No 1{table t_in e_eveni ng} QD Montelukas t Sodium 10 Ranitidine HCl 150 MG Ranitidine HCl 150 MG No 1{capsu le} BID Ranitidine HCl 150 MG Crestor 10 MG Crestor 10 MG No 1{table t} QD Crestor 10 MG Folic Acid Xtra - Folic Acid Xtra - No QD Folic Acid Xtra - cloNIDine HCl 0.2 MG cloNIDine HCl 0.2 MG No cloNIDine HCl 0.2 MG Norvasc 5 Norvasc 5 No 1{ta ble t} QD Norvasc 5 Levothyroxi ne Sodium 50 MCG Levothyroxi ne Sodium 50 MCG No QD Levothyrox ine Sodium 50 MCG Methotrexat e Sodium (PF) 50 MG/2ML Methotrexat e Sodium (PF) 50 MG/2ML No Methotrexa te Sodium (PF) 50 MG/2ML cloNIDine HCl 0.2 cloNIDine HCl 0.2 No 1{table t} QD cloNIDine HCl 0.2 Gabapentin 300 MG Gabapentin 300 MG No 1{capsu le} BID Gabapentin 300 MG Crestor 10 MG Crestor 10 MG No 1{table t} QD Crestor 10 MG Gabapentin 300 Gabapentin 300 No 1{capsu le} BID Gabapentin 300 Flonase 50 MCG/ACT Flonase 50 MCG/ACT No 1{spray _in_eac h_nostr il} QD Flonase 50 MCG/ACT Montelukast Sodium 10 MG Montelukast Sodium 10 MG No 1{table t_in e_eveni ng} QD Montelukas t Sodium 10 MG Vitamin D3 2000 UNIT Vitamin D3 2000 UNIT No 1{capsu le} QD Vitamin D3 2000 UNIT cloNIDine HCl 0.2 MG cloNIDine HCl 0.2 MG No cloNIDine HCl 0.2 MG Triamterene -HCTZ 37.5-25 MG Triamterene -HCTZ 37.5-25 MG No 1{table t_in_ e_morni ng} QD Triamteren e-HCTZ 37.5-25 MG Norvasc 5 MG Norvasc 5 MG No 1{table t} QD Norvasc 5 MG Folic Acid Xtra - Folic Acid Xtra - No QD Folic Acid Xtra - Norvasc 5 Norvasc 5 No 1{ta ble t} QD Norvasc 5 cloNIDine HCl 0.2 MG cloNIDine HCl 0.2 MG No 1{table t} QD cloNIDine HCl 0.2 MG Montelukast Sodium 10 Montelukast Sodium 10 No 1{table t_in e_eveni ng} QD Montelukas t Sodium 10 Ranitidine HCl 150 MG Ranitidine HCl 150 MG No 1{capsu le} BID Ranitidine HCl 150 MG Methotrexat e Sodium (PF) 50 MG/2ML Methotrexat e Sodium (PF) 50 MG/2ML No Methotrexa te Sodium (PF) 50 MG/2ML Norvasc 5 MG Norvasc 5 MG No 1{table t} QD Norvasc 5 MG Folic Acid Xtra - Folic Acid Xtra - No QD Folic Acid Xtra - cloNIDine HCl 0.2 MG cloNIDine HCl 0.2 MG No cloNIDine HCl 0.2 MG Norvasc 5 Norvasc 5 No 1{ta ble t} QD Norvasc 5 cloNIDine HCl 0.2 MG cloNIDine HCl 0.2 MG No 1{table t} QD cloNIDine HCl 0.2 MG Montelukast Sodium 10 MG Montelukast Sodium 10 MG No 1{table t_in e_eveni ng} QD Montelukas t Sodium 10 MG Crestor 10 MG Crestor 10 MG No 1{table t} QD Crestor 10 MG Gabapentin 300 MG Gabapentin 300 MG No 1{capsu le} BID Gabapentin 300 MG Flonase 50 MCG/ACT Flonase 50 MCG/ACT No 1{spray _in_eac h_nostr il} QD Flonase 50 MCG/ACT Montelukast Sodium 10 Montelukast Sodium 10 No 1{table t_in e_eveni ng} QD Montelukas t Sodium 10 Vitamin D3 2000 UNIT Vitamin D3 2000 UNIT No 1{capsu le} QD Vitamin D3 2000 UNIT cloNIDine HCl 0.2 cloNIDine HCl 0.2 No 1{table t} QD cloNIDine HCl 0.2 Ranitidine HCl 150 MG Ranitidine HCl 150 MG No 1{capsu le} BID Ranitidine HCl 150 MG Triamterene -HCTZ 37.5-25 MG Triamterene -HCTZ 37.5-25 MG No 1{table t_in_ e_morni ng} QD Triamteren e-HCTZ 37.5-25 MG Gabapentin 300 Gabapentin 300 No 1{capsu le} BID Gabapentin 300 Montelukast Sodium 10 Montelukast Sodium 10 No 1{table t_in_ e_eveni ng} QD Montelukas t Sodium 10 Methotrexat e Sodium (PF) 50 MG/2ML Methotrexat e Sodium (PF) 50 MG/2ML No Methotrexa te Sodium (PF) 50 MG/2ML Folic Acid Xtra - Folic Acid Xtra - No QD Folic Acid Xtra - Gabapentin 300 Gabapentin 300 No 1{capsu le} BID Gabapentin 300 Crestor 10 MG Crestor 10 MG No 1{table t} QD Crestor 10 MG Triamterene -HCTZ 37.5-25 MG Triamterene -HCTZ 37.5-25 MG No 1{table t_in_ e_morni ng} QD Triamteren e-HCTZ 37.5-25 MG Vitamin D3 2000 UNIT Vitamin D3 2000 UNIT No 1{capsu le} QD Vitamin D3 2000 UNIT Norvasc 5 MG Norvasc 5 MG No 1{table t} QD Norvasc 5 MG Montelukast Sodium 10 MG Montelukast Sodium 10 MG No 1{table t_in e_eveni ng} QD Montelukas t Sodium 10 MG Norvasc 5 Norvasc 5 No 1{ta ble t} QD Norvasc 5 Gabapentin 300 MG Gabapentin 300 MG No 1{capsu le} BID Gabapentin 300 MG cloNIDine HCl 0.2 MG cloNIDine HCl 0.2 MG No cloNIDine HCl 0.2 MG Ranitidine HCl 150 MG Ranitidine HCl 150 MG No 1{capsu le} BID Ranitidine HCl 150 MG cloNIDine HCl 0.2 MG cloNIDine HCl 0.2 MG No 1{table t} QD cloNIDine HCl 0.2 MG cloNIDine HCl 0.2 cloNIDine HCl 0.2 No 1{table t} QD cloNIDine HCl 0.2 Flonase 50 MCG/ACT Flonase 50 MCG/ACT No 1{spray _in_eac h_nostr il} QD Flonase 50 MCG/ACT Montelukast Sodium 10 Montelukast Sodium 10 No 1{table t_in e_eveni ng} QD Montelukas t Sodium 10 Methotrexat e Sodium (PF) 50 MG/2ML Methotrexat e Sodium (PF) 50 MG/2ML No Methotrexa te Sodium (PF) 50 MG/2ML Folic Acid Xtra - Folic Acid Xtra - No QD Folic Acid Xtra - Gabapentin 300 Gabapentin 300 No 1{capsu le} BID Gabapentin 300 Crestor 10 MG Crestor 10 MG No 1{table t} QD Crestor 10 MG Triamterene -HCTZ 37.5-25 MG Triamterene -HCTZ 37.5-25 MG No 1{table t_in e_morni ng} QD Triamteren e-HCTZ 37.5-25 MG Vitamin D3 2000 UNIT Vitamin D3 2000 UNIT No 1{capsu le} QD Vitamin D3 2000 UNIT Norvasc 5 MG Norvasc 5 MG No 1{table t} QD Norvasc 5 MG Montelukast Sodium 10 MG Montelukast Sodium 10 MG No 1{table t_ e_eveni ng} QD Montelukas t Sodium 10 MG Norvasc 5 Norvasc 5 No 1{ta ble t} QD Norvasc 5 Gabapentin 300 MG Gabapentin 300 MG No 1{capsu le} BID Gabapentin 300 MG cloNIDine HCl 0.2 MG cloNIDine HCl 0.2 MG No cloNIDine HCl 0.2 MG Ranitidine HCl 150 MG Ranitidine HCl 150 MG No 1{capsu le} BID Ranitidine HCl 150 MG cloNIDine HCl 0.2 MG cloNIDine HCl 0.2 MG No 1{table t} QD cloNIDine HCl 0.2 MG cloNIDine HCl 0.2 cloNIDine HCl 0.2 No 1{table t} QD cloNIDine HCl 0.2 Flonase 50 MCG/ACT Flonase 50 MCG/ACT No 1{spray _in_eac h_nostr il} QD Flonase 50 MCG/ACT Crestor 10 MG Crestor 10 MG No 1{table t} QD Crestor 10 MG Gabapentin 300 MG Gabapentin 300 MG No 1{capsu le} BID Gabapentin 300 MG Montelukast Sodium 10 Montelukast Sodium 10 No 1{table t_in e_eveni ng} QD Montelukas t Sodium 10 cloNIDine HCl 0.2 MG cloNIDine HCl 0.2 MG No 1{table t} QD cloNIDine HCl 0.2 MG Norvasc 5 MG Norvasc 5 MG No 1{table t} QD Norvasc 5 MG cloNIDine HCl 0.2 cloNIDine HCl 0.2 No 1{table t} QD cloNIDine HCl 0.2 Levothyroxi ne Sodium 50 MCG Levothyroxi ne Sodium 50 MCG No QD Levothyrox ine Sodium 50 MCG Vitamin D3 2000 UNIT Vitamin D3 2000 UNIT No 1{capsu le} QD Vitamin D3 2000 UNIT cloNIDine HCl 0.2 MG cloNIDine HCl 0.2 MG No cloNIDine HCl 0.2 MG Ranitidine HCl 150 MG Ranitidine HCl 150 MG No 1{capsu le} BID Ranitidine HCl 150 MG Montelukast Sodium 10 MG Montelukast Sodium 10 MG No 1{table t_in e_eveni ng} QD Montelukas t Sodium 10 MG Norvasc 5 Norvasc 5 No 1{ta ble t} QD Norvasc 5 Triamterene -HCTZ 37.5-25 MG Triamterene -HCTZ 37.5-25 MG No 1{table t_in e_morni ng} QD Triamteren e-HCTZ 37.5-25 MG Folic Acid Xtra - Folic Acid Xtra - No QD Folic Acid Xtra - Flonase 50 MCG/ACT Flonase 50 MCG/ACT No 1{spray _in_eac h_nostr il} QD Flonase 50 MCG/ACT Gabapentin 300 Gabapentin 300 No 1{capsu le} BID Gabapentin 300 Methotrexat e Sodium (PF) 50 MG/2ML Methotrexat e Sodium (PF) 50 MG/2ML No Methotrexa te Sodium (PF) 50 MG/2ML Montelukast Sodium 10 Montelukast Sodium 10 No 1{table t_in e_eveni ng} QD Montelukas t Sodium 10 Norvasc 5 MG Norvasc 5 MG No 1{table t} QD Norvasc 5 MG cloNIDine HCl 0.2 MG cloNIDine HCl 0.2 MG No cloNIDine HCl 0.2 MG Ranitidine HCl 150 MG Ranitidine HCl 150 MG No 1{capsu le} BID Ranitidine HCl 150 MG Levothyroxi ne Sodium 50 MCG Levothyroxi ne Sodium 50 MCG No QD Levothyrox ine Sodium 50 MCG cloNIDine HCl 0.2 cloNIDine HCl 0.2 No 1{table t} QD cloNIDine HCl 0.2 Vitamin D3 2000 UNIT Vitamin D3 2000 UNIT No 1{capsu le} QD Vitamin D3 2000 UNIT Norvasc 5 Norvasc 5 No 1{ta ble t} QD Norvasc 5 Folic Acid Xtra - Folic Acid Xtra - No QD Folic Acid Xtra - Gabapentin 300 Gabapentin 300 No 1{capsu le} BID Gabapentin 300 Gabapentin 300 MG Gabapentin 300 MG No 1{capsu le} BID Gabapentin 300 MG Montelukast Sodium 10 MG Montelukast Sodium 10 MG No 1{table t_in e_eveni ng} QD Montelukas t Sodium 10 MG Methotrexat e Sodium (PF) 50 MG/2ML Methotrexat e Sodium (PF) 50 MG/2ML No Methotrexa te Sodium (PF) 50 MG/2ML Flonase 50 MCG/ACT Flonase 50 MCG/ACT No 1{spray _in_eac h_nostr il} QD Flonase 50 MCG/ACT Triamterene -HCTZ 37.5-25 MG Triamterene -HCTZ 37.5-25 MG No 1{table t_in e_morni ng} QD Triamteren e-HCTZ 37.5-25 MG Crestor 10 MG Crestor 10 MG No 1{table t} QD Crestor 10 MG Levothyroxi ne Sodium 50 MCG Levothyroxi ne Sodium 50 MCG No QD Levothyrox ine Sodium 50 MCG Vitamin D3 2000 UNIT Vitamin D3 2000 UNIT No 1{capsu le} QD Vitamin D3 2000 UNIT Montelukast Sodium 10 Montelukast Sodium 10 No 1{table t_in e_eveni ng} QD Montelukas t Sodium 10 Flonase 50 MCG/ACT Flonase 50 MCG/ACT No 1{spray _in_eac h_nostr il} QD Flonase 50 MCG/ACT Gabapentin 300 MG Gabapentin 300 MG No 1{capsu le} BID Gabapentin 300 MG Crestor 10 MG Crestor 10 MG No 1{table t} QD Crestor 10 MG Gabapentin 300 Gabapentin 300 No 1{capsu le} BID Gabapentin 300 Norvasc 5 Norvasc 5 No 1{ta ble t} QD Norvasc 5 Folic Acid Xtra - Folic Acid Xtra - No QD Folic Acid Xtra - Triamterene -HCTZ 37.5-25 MG Triamterene -HCTZ 37.5-25 MG No 1{table t_in_ e_morni ng} QD Triamteren e-HCTZ 37.5-25 MG cloNIDine HCl 0.2 cloNIDine HCl 0.2 No 1{table t} QD cloNIDine HCl 0.2 cloNIDine HCl 0.2 MG cloNIDine HCl 0.2 MG No cloNIDine HCl 0.2 MG Methotrexat e Sodium (PF) 50 MG/2ML Methotrexat e Sodium (PF) 50 MG/2ML No Methotrexa te Sodium (PF) 50 MG/2ML Norvasc 5 MG Norvasc 5 MG No 1{table t} QD Norvasc 5 MG Montelukast Sodium 10 MG Montelukast Sodium 10 MG No 1{table t_in_ e_eveni ng} QD Montelukas t Sodium 10 MG Ranitidine HCl 150 MG Ranitidine HCl 150 MG No 1{capsu le} BID Ranitidine HCl 150 MG cloNIDine HCl 0.2 MG cloNIDine HCl 0.2 MG No 1{table t} QD cloNIDine HCl 0.2 MG Levothyroxi ne Sodium 50 MCG Levothyroxi ne Sodium 50 MCG No QD Levothyrox ine Sodium 50 MCG Vitamin D3 2000 UNIT Vitamin D3 2000 UNIT No 1{capsu le} QD Vitamin D3 2000 UNIT Montelukast Sodium 10 Montelukast Sodium 10 No 1{table t_in_ e_eveni ng} QD Montelukas t Sodium 10 Flonase 50 MCG/ACT Flonase 50 MCG/ACT No 1{spray _in_eac h_nostr il} QD Flonase 50 MCG/ACT Gabapentin 300 MG Gabapentin 300 MG No 1{capsu le} BID Gabapentin 300 MG Crestor 10 MG Crestor 10 MG No 1{table t} QD Crestor 10 MG Gabapentin 300 Gabapentin 300 No 1{capsu le} BID Gabapentin 300 Norvasc 5 Norvasc 5 No 1{ta ble t} QD Norvasc 5 Folic Acid Xtra - Folic Acid Xtra - No QD Folic Acid Xtra - Triamterene -HCTZ 37.5-25 MG Triamterene -HCTZ 37.5-25 MG No 1{table t_in_th e_morni ng} QD Triamteren e-HCTZ 37.5-25 MG cloNIDine HCl 0.2 cloNIDine HCl 0.2 No 1{table t} QD cloNIDine HCl 0.2 cloNIDine HCl 0.2 MG cloNIDine HCl 0.2 MG No cloNIDine HCl 0.2 MG Methotrexat e Sodium (PF) 50 MG/2ML Methotrexat e Sodium (PF) 50 MG/2ML No Methotrexa te Sodium (PF) 50 MG/2ML Norvasc 5 MG Norvasc 5 MG No 1{table t} QD Norvasc 5 MG Montelukast Sodium 10 MG Montelukast Sodium 10 MG No 1{table t_in_ e_eveni ng} QD Montelukas t Sodium 10 MG Ranitidine HCl 150 MG Ranitidine HCl 150 MG No 1{capsu le} BID Ranitidine HCl 150 MG cloNIDine HCl 0.2 MG cloNIDine HCl 0.2 MG No 1{table t} QD cloNIDine HCl 0.2 MG Folic Acid Xtra - Folic Acid Xtra - No QD Folic Acid Xtra - Montelukast Sodium 10 Montelukast Sodium 10 No 1{table t_in_th e_eveni ng} QD Montelukas t Sodium 10 Crestor 10 MG Crestor 10 MG No 1{table t} QD Crestor 10 MG Flonase 50 MCG/ACT Flonase 50 MCG/ACT No 1{spray _in_eac h_nostr il} QD Flonase 50 MCG/ACT Levothyroxi ne Sodium 50 MCG Levothyroxi ne Sodium 50 MCG No QD Levothyrox ine Sodium 50 MCG Norvasc 5 Norvasc 5 No 1{ta ble t} QD Norvasc 5 Norvasc 5 MG Norvasc 5 MG No 1{table t} QD Norvasc 5 MG Ranitidine HCl 150 MG Ranitidine HCl 150 MG No 1{capsu le} BID Ranitidine HCl 150 MG Methotrexat e Sodium (PF) 50 MG/2ML Methotrexat e Sodium (PF) 50 MG/2ML No Methotrexa te Sodium (PF) 50 MG/2ML cloNIDine HCl 0.2 cloNIDine HCl 0.2 No 1{table t} QD cloNIDine HCl 0.2 cloNIDine HCl 0.2 MG cloNIDine HCl 0.2 MG No 1{table t} QD cloNIDine HCl 0.2 MG Gabapentin 300 MG Gabapentin 300 MG No 1{capsu le} BID Gabapentin 300 MG cloNIDine HCl 0.2 MG cloNIDine HCl 0.2 MG No cloNIDine HCl 0.2 MG Gabapentin 300 Gabapentin 300 No 1{capsu le} BID Gabapentin 300 Triamterene -HCTZ 37.5-25 MG Triamterene -HCTZ 37.5-25 MG No 1{table t_in e_morni ng} QD Triamteren e-HCTZ 37.5-25 MG Vitamin D3 2000 UNIT Vitamin D3 2000 UNIT No 1{capsu le} QD Vitamin D3 2000 UNIT Montelukast Sodium 10 MG Montelukast Sodium 10 MG No 1{table t_in e_eveni ng} QD Montelukas t Sodium 10 MG Folic Acid Xtra - Folic Acid Xtra - No QD Folic Acid Xtra - Montelukast Sodium 10 Montelukast Sodium 10 No 1{table t_in e_eveni ng} QD Montelukas t Sodium 10 Crestor 10 MG Crestor 10 MG No 1{table t} QD Crestor 10 MG Flonase 50 MCG/ACT Flonase 50 MCG/ACT No 1{spray _in_ h_nostr il} QD Flonase 50 MCG/ACT Levothyroxi ne Sodium 50 MCG Levothyroxi ne Sodium 50 MCG No QD Levothyrox ine Sodium 50 MCG Norvasc 5 Norvasc 5 No 1{ta ble t} QD Norvasc 5 Norvasc 5 MG Norvasc 5 MG No 1{table t} QD Norvasc 5 MG Ranitidine HCl 150 MG Ranitidine HCl 150 MG No 1{capsu le} BID Ranitidine HCl 150 MG Methotrexat e Sodium (PF) 50 MG/2ML Methotrexat e Sodium (PF) 50 MG/2ML No Methotrexa te Sodium (PF) 50 MG/2ML cloNIDine HCl 0.2 cloNIDine HCl 0.2 No 1{table t} QD cloNIDine HCl 0.2 cloNIDine HCl 0.2 MG cloNIDine HCl 0.2 MG No 1{table t} QD cloNIDine HCl 0.2 MG Gabapentin 300 MG Gabapentin 300 MG No 1{capsu le} BID Gabapentin 300 MG cloNIDine HCl 0.2 MG cloNIDine HCl 0.2 MG No cloNIDine HCl 0.2 MG Gabapentin 300 Gabapentin 300 No 1{capsu le} BID Gabapentin 300 Triamterene -HCTZ 37.5-25 MG Triamterene -HCTZ 37.5-25 MG No 1{table t_in e_morni ng} QD Triamteren e-HCTZ 37.5-25 MG Vitamin D3 2000 UNIT Vitamin D3 2000 UNIT No 1{capsu le} QD Vitamin D3 2000 UNIT Montelukast Sodium 10 MG Montelukast Sodium 10 MG No 1{table t_in e_eveni ng} QD Montelukas t Sodium 10 MG cloNIDine HCl 0.2 MG cloNIDine HCl 0.2 MG No 1{table t} QD cloNIDine HCl 0.2 MG Montelukast Sodium 10 Montelukast Sodium 10 No 1{table t_in e_eveni ng} QD Montelukas t Sodium 10 Norvasc 5 MG Norvasc 5 MG No 1{table t} QD Norvasc 5 MG Triamterene -HCTZ 37.5-25 MG Triamterene -HCTZ 37.5-25 MG No 1{table t_in e_morni ng} QD Triamteren e-HCTZ 37.5-25 MG Levothyroxi ne Sodium 50 MCG Levothyroxi ne Sodium 50 MCG No QD Levothyrox ine Sodium 50 MCG Crestor 10 MG Crestor 10 MG No 1{table t} QD Crestor 10 MG traMADol HCl 50 MG traMADol HCl 50 MG No 1{table t_as_ne eded} QD traMADol HCl 50 MG Gabapentin 300 MG Gabapentin 300 MG No 1{capsu le} BID Gabapentin 300 MG Methotrexat e Sodium 2.5 MG Methotrexat e Sodium 2.5 MG No Methotrexa te Sodium 2.5 MG cloNIDine HCl 0.2 MG cloNIDine HCl 0.2 MG No 1{table t} QD cloNIDine HCl 0.2 MG Montelukast Sodium 10 Montelukast Sodium 10 No 1{table t_in e_eveni ng} QD Montelukas t Sodium 10 Norvasc 5 MG Norvasc 5 MG No 1{table t} QD Norvasc 5 MG Triamterene -HCTZ 37.5-25 MG Triamterene -HCTZ 37.5-25 MG No 1{table t_in_th e_morni ng} QD Triamteren e-HCTZ 37.5-25 MG Levothyroxi ne Sodium 50 MCG Levothyroxi ne Sodium 50 MCG No QD Levothyrox ine Sodium 50 MCG Crestor 10 MG Crestor 10 MG No 1{table t} QD Crestor 10 MG traMADol HCl 50 MG traMADol HCl 50 MG No 1{table t_as_ne eded} QD traMADol HCl 50 MG Gabapentin 300 MG Gabapentin 300 MG No 1{capsu le} BID Gabapentin 300 MG Methotrexat e Sodium 2.5 MG Methotrexat e Sodium 2.5 MG No Methotrexa te Sodium 2.5 MG cloNIDine HCl 0.2 MG cloNIDine HCl 0.2 MG No 1{table t} QD cloNIDine HCl 0.2 MG Montelukast Sodium 10 Montelukast Sodium 10 No 1{table t_in_ e_eveni ng} QD Montelukas t Sodium 10 Norvasc 5 MG Norvasc 5 MG No 1{table t} QD Norvasc 5 MG Triamterene -HCTZ 37.5-25 MG Triamterene -HCTZ 37.5-25 MG No 1{table t_in_ e_morni ng} QD Triamteren e-HCTZ 37.5-25 MG Levothyroxi ne Sodium 50 MCG Levothyroxi ne Sodium 50 MCG No QD Levothyrox ine Sodium 50 MCG Crestor 10 MG Crestor 10 MG No 1{table t} QD Crestor 10 MG traMADol HCl 50 MG traMADol HCl 50 MG No 1{table t_as_ne eded} QD traMADol HCl 50 MG Gabapentin 300 MG Gabapentin 300 MG No 1{capsu le} BID Gabapentin 300 MG Methotrexat e Sodium 2.5 MG Methotrexat e Sodium 2.5 MG No Methotrexa te Sodium 2.5 MG cloNIDine HCl 0.2 MG cloNIDine HCl 0.2 MG No 1{table t} QD cloNIDine HCl 0.2 MG Montelukast Sodium 10 Montelukast Sodium 10 No 1{table t_in_ e_eveni ng} QD Montelukas t Sodium 10 Norvasc 5 MG Norvasc 5 MG No 1{table t} QD Norvasc 5 MG Triamterene -HCTZ 37.5-25 MG Triamterene -HCTZ 37.5-25 MG No 1{table t_in_th e_morni ng} QD Triamteren e-HCTZ 37.5-25 MG Levothyroxi ne Sodium 50 MCG Levothyroxi ne Sodium 50 MCG No QD Levothyrox ine Sodium 50 MCG Crestor 10 MG Crestor 10 MG No 1{table t} QD Crestor 10 MG traMADol HCl 50 MG traMADol HCl 50 MG No 1{table t_as_ne eded} QD traMADol HCl 50 MG Gabapentin 300 MG Gabapentin 300 MG No 1{capsu le} BID Gabapentin 300 MG Methotrexat e Sodium 2.5 MG Methotrexat e Sodium 2.5 MG No Methotrexa te Sodium 2.5 MG cloNIDine HCl 0.2 MG cloNIDine HCl 0.2 MG No 1{table t} QD cloNIDine HCl 0.2 MG Montelukast Sodium 10 Montelukast Sodium 10 No 1{table t_in_ e_eveni ng} QD Montelukas t Sodium 10 Norvasc 5 MG Norvasc 5 MG No 1{table t} QD Norvasc 5 MG Triamterene -HCTZ 37.5-25 MG Triamterene -HCTZ 37.5-25 MG No 1{table t_in_th e_morni ng} QD Triamteren e-HCTZ 37.5-25 MG Levothyroxi ne Sodium 50 MCG Levothyroxi ne Sodium 50 MCG No QD Levothyrox ine Sodium 50 MCG Crestor 10 MG Crestor 10 MG No 1{table t} QD Crestor 10 MG traMADol HCl 50 MG traMADol HCl 50 MG No 1{table t_as_ne eded} QD traMADol HCl 50 MG Gabapentin 300 MG Gabapentin 300 MG No 1{capsu le} BID Gabapentin 300 MG Methotrexat e Sodium 2.5 MG Methotrexat e Sodium 2.5 MG No Methotrexa te Sodium 2.5 MG cloNIDine HCl 0.2 MG cloNIDine HCl 0.2 MG No 1{table t} QD cloNIDine HCl 0.2 MG Montelukast Sodium 10 Montelukast Sodium 10 No 1{table t_in_th e_eveni ng} QD Montelukas t Sodium 10 Norvasc 5 MG Norvasc 5 MG No 1{table t} QD Norvasc 5 MG Triamterene -HCTZ 37.5-25 MG Triamterene -HCTZ 37.5-25 MG No 1{table t_in_th e_morni ng} QD Triamteren e-HCTZ 37.5-25 MG Levothyroxi ne Sodium 50 MCG Levothyroxi ne Sodium 50 MCG No QD Levothyrox ine Sodium 50 MCG Crestor 10 MG Crestor 10 MG No 1{table t} QD Crestor 10 MG traMADol HCl 50 MG traMADol HCl 50 MG No 1{table t_as_ne eded} QD traMADol HCl 50 MG Gabapentin 300 MG Gabapentin 300 MG No 1{capsu le} BID Gabapentin 300 MG Methotrexat e Sodium 2.5 MG Methotrexat e Sodium 2.5 MG No Methotrexa te Sodium 2.5 MG Levothyroxi ne Sodium 75 MCG Levothyroxi ne Sodium 75 MCG No QD Levothyrox ine Sodium 75 MCG cloNIDine HCl 0.2 MG cloNIDine HCl 0.2 MG No 1{table t} QD cloNIDine HCl 0.2 MG Montelukast Sodium 10 Montelukast Sodium 10 No 1{table t_in_ e_eveni ng} QD Montelukas t Sodium 10 Norvasc 5 MG Norvasc 5 MG No 1{table t} QD Norvasc 5 MG Ranitidine HCl 150 MG Ranitidine HCl 150 MG No 1{capsu le} BID Ranitidine HCl 150 MG Triamterene -HCTZ 37.5-25 MG Triamterene -HCTZ 37.5-25 MG No 1{table t_in_ e_morni ng} QD Triamteren e-HCTZ 37.5-25 MG Levothyroxi ne Sodium 50 MCG Levothyroxi ne Sodium 50 MCG No QD Levothyrox ine Sodium 50 MCG Crestor 10 MG Crestor 10 MG No 1{table t} QD Crestor 10 MG traMADol HCl 50 MG traMADol HCl 50 MG No 1{table t_as_ne eded} QD traMADol HCl 50 MG Gabapentin 300 MG Gabapentin 300 MG No 1{capsu le} BID Gabapentin 300 MG Methotrexat e Sodium 2.5 MG Methotrexat e Sodium 2.5 MG No Methotrexa te Sodium 2.5 MG Flonase 50 MCG/ACT Flonase 50 MCG/ACT No 1{spray _in_eac h_nostr il} QD Flonase 50 MCG/ACT Norvasc 5 MG Norvasc 5 MG No 1{table t} QD Norvasc 5 MG cloNIDine HCl 0.2 MG cloNIDine HCl 0.2 MG No 1{table t} QD cloNIDine HCl 0.2 MG Montelukast Sodium 10 Montelukast Sodium 10 No 1{table t_in_th e_eveni ng} QD Montelukas t Sodium 10 Norvasc 5 MG Norvasc 5 MG No 1{table t} QD Norvasc 5 MG Triamterene -HCTZ 37.5-25 MG Triamterene -HCTZ 37.5-25 MG No 1{table t_in_th e_morni ng} QD Triamteren e-HCTZ 37.5-25 MG Levothyroxi ne Sodium 50 MCG Levothyroxi ne Sodium 50 MCG No QD Levothyrox ine Sodium 50 MCG Crestor 10 MG Crestor 10 MG No 1{table t} QD Crestor 10 MG Methotrexat e Sodium (PF) 50 MG/2ML Methotrexat e Sodium (PF) 50 MG/2ML No Methotrexa te Sodium (PF) 50 MG/2ML traMADol HCl 50 MG traMADol HCl 50 MG No 1{table t_as_ne eded} QD traMADol HCl 50 MG Gabapentin 300 MG Gabapentin 300 MG No 1{capsu le} BID Gabapentin 300 MG Methotrexat e Sodium 2.5 MG Methotrexat e Sodium 2.5 MG No Methotrexa te Sodium 2.5 MG Crestor 10 MG Crestor 10 MG No 1{table t} QD Crestor 10 MG cloNIDine HCl 0.2 MG cloNIDine HCl 0.2 MG No 1{table t} QD cloNIDine HCl 0.2 MG cloNIDine HCl 0.2 cloNIDine HCl 0.2 No 1{table t} QD cloNIDine HCl 0.2 Montelukast Sodium 10 Montelukast Sodium 10 No 1{table t_in_th e_eveni ng} QD Montelukas t Sodium 10 Norvasc 5 MG Norvasc 5 MG No 1{table t} QD Norvasc 5 MG Triamterene -HCTZ 37.5-25 MG Triamterene -HCTZ 37.5-25 MG No 1{table t_in_th e_morni ng} QD Triamteren e-HCTZ 37.5-25 MG Levothyroxi ne Sodium 50 MCG Levothyroxi ne Sodium 50 MCG No QD Levothyrox ine Sodium 50 MCG Crestor 10 MG Crestor 10 MG No 1{table t} QD Crestor 10 MG traMADol HCl 50 MG traMADol HCl 50 MG No 1{table t_as_ne eded} QD traMADol HCl 50 MG Gabapentin 300 MG Gabapentin 300 MG No 1{capsu le} BID Gabapentin 300 MG Methotrexat e Sodium 2.5 MG Methotrexat e Sodium 2.5 MG No Methotrexa te Sodium 2.5 MG Gabapentin 300 MG Gabapentin 300 MG No 1{capsu le} BID Gabapentin 300 MG cloNIDine HCl 0.2 MG cloNIDine HCl 0.2 MG No 1{table t} QD cloNIDine HCl 0.2 MG Montelukast Sodium 10 Montelukast Sodium 10 No 1{table t_in_th e_eveni ng} QD Montelukas t Sodium 10 Norvasc 5 MG Norvasc 5 MG No 1{table t} QD Norvasc 5 MG Gabapentin 300 Gabapentin 300 No 1{capsu le} BID Gabapentin 300 Triamterene -HCTZ 37.5-25 MG Triamterene -HCTZ 37.5-25 MG No 1{table t_in_th e_morni ng} QD Triamteren e-HCTZ 37.5-25 MG Levothyroxi ne Sodium 50 MCG Levothyroxi ne Sodium 50 MCG No QD Levothyrox ine Sodium 50 MCG Crestor 10 MG Crestor 10 MG No 1{table t} QD Crestor 10 MG traMADol HCl 50 MG traMADol HCl 50 MG No 1{table t_as_ne eded} QD traMADol HCl 50 MG Gabapentin 300 MG Gabapentin 300 MG No 1{capsu le} BID Gabapentin 300 MG Methotrexat e Sodium 2.5 MG Methotrexat e Sodium 2.5 MG No Methotrexa te Sodium 2.5 MG cloNIDine HCl 0.2 MG cloNIDine HCl 0.2 MG No 1{table t} QD cloNIDine HCl 0.2 MG Montelukast Sodium 10 Montelukast Sodium 10 No 1{table t_in_th e_eveni ng} QD Montelukas t Sodium 10 Norvasc 5 MG Norvasc 5 MG No 1{table t} QD Norvasc 5 MG Triamterene -HCTZ 37.5-25 MG Triamterene -HCTZ 37.5-25 MG No 1{table t_in e_morni ng} QD Triamteren e-HCTZ 37.5-25 MG Vitamin D3 2000 UNIT Vitamin D3 2000 UNIT No 1{capsu le} QD Vitamin D3 2000 UNIT Levothyroxi ne Sodium 50 MCG Levothyroxi ne Sodium 50 MCG No QD Levothyrox ine Sodium 50 MCG Crestor 10 MG Crestor 10 MG No 1{table t} QD Crestor 10 MG traMADol HCl 50 MG traMADol HCl 50 MG No 1{table t_as_ne eded} QD traMADol HCl 50 MG Gabapentin 300 MG Gabapentin 300 MG No 1{capsu le} BID Gabapentin 300 MG Methotrexat e Sodium 2.5 MG Methotrexat e Sodium 2.5 MG No Methotrexa te Sodium 2.5 MG cloNIDine HCl 0.2 MG cloNIDine HCl 0.2 MG No 1{table t} QD cloNIDine HCl 0.2 MG Montelukast Sodium 10 Montelukast Sodium 10 No 1{table t_in e_eveni ng} QD Montelukas t Sodium 10 cloNIDine HCl 0.2 MG cloNIDine HCl 0.2 MG No 1{table t} QD cloNIDine HCl 0.2 MG Montelukast Sodium 10 Montelukast Sodium 10 No 1{table t_in e_eveni ng} QD Montelukas t Sodium 10 Norvasc 5 MG Norvasc 5 MG No 1{table t} QD Norvasc 5 MG Triamterene -HCTZ 37.5-25 MG Triamterene -HCTZ 37.5-25 MG No 1{table t_in e_morni ng} QD Triamteren e-HCTZ 37.5-25 MG Triamterene -HCTZ 37.5-25 MG Triamterene -HCTZ 37.5-25 MG No 1{table t_in e_morni ng} QD Triamteren e-HCTZ 37.5-25 MG Levothyroxi ne Sodium 50 MCG Levothyroxi ne Sodium 50 MCG No QD Levothyrox ine Sodium 50 MCG Crestor 10 MG Crestor 10 MG No 1{table t} QD Crestor 10 MG traMADol HCl 50 MG traMADol HCl 50 MG No 1{table t_as_ne eded} QD traMADol HCl 50 MG Gabapentin 300 MG Gabapentin 300 MG No 1{capsu le} BID Gabapentin 300 MG Methotrexat e Sodium 2.5 MG Methotrexat e Sodium 2.5 MG No Methotrexa te Sodium 2.5 MG Norvasc 5 Norvasc 5 No 1{ta ble t} QD Norvasc 5 Montelukast Sodium 10 MG Montelukast Sodium 10 MG No 1{table t_in_th e_eveni ng} QD Montelukas t Sodium 10 MG cloNIDine HCl 0.2 MG cloNIDine HCl 0.2 MG No 1{table t} QD cloNIDine HCl 0.2 MG Montelukast Sodium 10 Montelukast Sodium 10 No 1{table t_in_th e_eveni ng} QD Montelukas t Sodium 10 Norvasc 5 MG Norvasc 5 MG No 1{table t} QD Norvasc 5 MG Triamterene -HCTZ 37.5-25 MG Triamterene -HCTZ 37.5-25 MG No 1{table t_in_ e_morni ng} QD Triamteren e-HCTZ 37.5-25 MG Levothyroxi ne Sodium 50 MCG Levothyroxi ne Sodium 50 MCG No QD Levothyrox ine Sodium 50 MCG Crestor 10 MG Crestor 10 MG No 1{table t} QD Crestor 10 MG traMADol HCl 50 MG traMADol HCl 50 MG No 1{table t_as_ne eded} QD traMADol HCl 50 MG Gabapentin 300 MG Gabapentin 300 MG No 1{capsu le} BID Gabapentin 300 MG Folic Acid Xtra - Folic Acid Xtra - No QD Folic Acid Xtra - Methotrexat e Sodium 2.5 MG Methotrexat e Sodium 2.5 MG No Methotrexa te Sodium 2.5 MG Ciprofloxac in HCl 500 MG Ciprofloxac in HCl 500 MG No 1{table t} BID Ciprofloxa dena HCl 500 MG Rosuvastati n Calcium 10 MG Rosuvastati n Calcium 10 MG No Rosuvastat in Calcium 10 MG Levothyroxi ne Sodium 50 MCG Levothyroxi ne Sodium 50 MCG No QD Levothyrox ine Sodium 50 MCG Montelukast Sodium 10 Montelukast Sodium 10 No 1{table t_in_ e_eveni ng} QD Montelukas t Sodium 10 Triamterene -HCTZ 37.5-25 MG Triamterene -HCTZ 37.5-25 MG No 1{table t_in_ e_morni ng} QD Triamteren e-HCTZ 37.5-25 MG Polyethylen e Glycol 3350 17 GM/SCOOP Polyethylen e Glycol 3350 17 GM/SCOOP No QD Polyethyle ne Glycol 3350 17 GM/SCOOP Methotrexat e Sodium 2.5 MG Methotrexat e Sodium 2.5 MG No Methotrexa te Sodium 2.5 MG metroNIDAZO LE 500 MG metroNIDAZO LE 500 MG No 1{table t} TID metroNIDAZ OLE 500 MG Gabapentin 300 MG Gabapentin 300 MG No 1{capsu le} BID Gabapentin 300 MG cloNIDine HCl 0.2 MG cloNIDine HCl 0.2 MG No 1{table t} QD cloNIDine HCl 0.2 MG Norvasc 5 MG Norvasc 5 MG No 1{table t} QD Norvasc 5 MG Fluticasone Propionate 50 MCG/ACT Fluticasone Propionate 50 MCG/ACT No 1{spray _in_eac h_nostr il} QD Fluticason e Propionate 50 MCG/ACT Ciprofloxac in HCl 500 MG Ciprofloxac in HCl 500 MG No 1{table t} BID Ciprofloxa dena HCl 500 MG Rosuvastati n Calcium 10 MG Rosuvastati n Calcium 10 MG No Rosuvastat in Calcium 10 MG Levothyroxi ne Sodium 50 MCG Levothyroxi ne Sodium 50 MCG No QD Levothyrox ine Sodium 50 MCG Montelukast Sodium 10 Montelukast Sodium 10 No 1{table t_in e_eveni ng} QD Montelukas t Sodium 10 Triamterene -HCTZ 37.5-25 MG Triamterene -HCTZ 37.5-25 MG No 1{table t_in_ e_morni ng} QD Triamteren e-HCTZ 37.5-25 MG Polyethylen e Glycol 3350 17 GM/SCOOP Polyethylen e Glycol 3350 17 GM/SCOOP No QD Polyethyle ne Glycol 3350 17 GM/SCOOP Methotrexat e Sodium 2.5 MG Methotrexat e Sodium 2.5 MG No Methotrexa te Sodium 2.5 MG metroNIDAZO LE 500 MG metroNIDAZO LE 500 MG No 1{table t} TID metroNIDAZ OLE 500 MG Gabapentin 300 MG Gabapentin 300 MG No 1{capsu le} BID Gabapentin 300 MG cloNIDine HCl 0.2 MG cloNIDine HCl 0.2 MG No 1{table t} QD cloNIDine HCl 0.2 MG Norvasc 5 MG Norvasc 5 MG No 1{table t} QD Norvasc 5 MG Fluticasone Propionate 50 MCG/ACT Fluticasone Propionate 50 MCG/ACT No 1{spray _in_eac h_nostr il} QD Fluticason e Propionate 50 MCG/ACT Ciprofloxac in HCl 500 MG Ciprofloxac in HCl 500 MG No 1{table t} BID Ciprofloxa dena HCl 500 MG Rosuvastati n Calcium 10 MG Rosuvastati n Calcium 10 MG No Rosuvastat in Calcium 10 MG Levothyroxi ne Sodium 50 MCG Levothyroxi ne Sodium 50 MCG No QD Levothyrox ine Sodium 50 MCG Montelukast Sodium 10 Montelukast Sodium 10 No 1{table t_in_ e_eveni ng} QD Montelukas t Sodium 10 Triamterene -HCTZ 37.5-25 MG Triamterene -HCTZ 37.5-25 MG No 1{table t_in_ e_morni ng} QD Triamteren e-HCTZ 37.5-25 MG Polyethylen e Glycol 3350 17 GM/SCOOP Polyethylen e Glycol 3350 17 GM/SCOOP No QD Polyethyle ne Glycol 3350 17 GM/SCOOP Methotrexat e Sodium 2.5 MG Methotrexat e Sodium 2.5 MG No Methotrexa te Sodium 2.5 MG metroNIDAZO LE 500 MG metroNIDAZO LE 500 MG No 1{table t} TID metroNIDAZ OLE 500 MG Gabapentin 300 MG Gabapentin 300 MG No 1{capsu le} BID Gabapentin 300 MG cloNIDine HCl 0.2 MG cloNIDine HCl 0.2 MG No 1{table t} QD cloNIDine HCl 0.2 MG Norvasc 5 MG Norvasc 5 MG No 1{table t} QD Norvasc 5 MG Fluticasone Propionate 50 MCG/ACT Fluticasone Propionate 50 MCG/ACT No 1{spray _in_eac h_nostr il} QD Fluticason e Propionate 50 MCG/ACT Ciprofloxac in HCl 500 MG Ciprofloxac in HCl 500 MG No 1{table t} BID Ciprofloxa dena HCl 500 MG Rosuvastati n Calcium 10 MG Rosuvastati n Calcium 10 MG No Rosuvastat in Calcium 10 MG Levothyroxi ne Sodium 50 MCG Levothyroxi ne Sodium 50 MCG No QD Levothyrox ine Sodium 50 MCG Montelukast Sodium 10 Montelukast Sodium 10 No 1{table t_in_ e_eveni ng} QD Montelukas t Sodium 10 Triamterene -HCTZ 37.5-25 MG Triamterene -HCTZ 37.5-25 MG No 1{table t_in_ e_morni ng} QD Triamteren e-HCTZ 37.5-25 MG Polyethylen e Glycol 3350 17 GM/SCOOP Polyethylen e Glycol 3350 17 GM/SCOOP No QD Polyethyle ne Glycol 3350 17 GM/SCOOP Methotrexat e Sodium 2.5 MG Methotrexat e Sodium 2.5 MG No Methotrexa te Sodium 2.5 MG metroNIDAZO LE 500 MG metroNIDAZO LE 500 MG No 1{table t} TID metroNIDAZ OLE 500 MG Gabapentin 300 MG Gabapentin 300 MG No 1{capsu le} BID Gabapentin 300 MG cloNIDine HCl 0.2 MG cloNIDine HCl 0.2 MG No 1{table t} QD cloNIDine HCl 0.2 MG Norvasc 5 MG Norvasc 5 MG No 1{table t} QD Norvasc 5 MG Fluticasone Propionate 50 MCG/ACT Fluticasone Propionate 50 MCG/ACT No 1{spray _in_eac h_nostr il} QD Fluticason e Propionate 50 MCG/ACT Claritin 10 MG Claritin 10 MG 02-19 00:00 :00 No 1{table t} QD Claritin 10 MG Claritin 10 MG Claritin 10 MG 02-19 00:00 :00 No 1{table t} QD Claritin 10 MG Claritin Claritin 08-05 00:00 :00 No Na Good 1 tablet [facility] Immunizations Ordered Immunization Name Filled Immunization Name Date Status Comments Source Flucelvax - single dose syringe Flucelvax - single dose syringe 2022-01-31 15:24:00 Completed [facility] Flucelvax - single dose syringe Flucelvax - single dose syringe 2022-01-31 15:24:00 Completed [facility] Moderna COVID-19 Vaccine Moderna COVID-19 Vaccine 2020-09-03 11:38:00 Completed [facility] Moderna COVID-19 Vaccine Moderna COVID-19 Vaccine 2020-09-03 11:38:00 Completed [facility] Moderna COVID-19 Vaccine Moderna COVID-19 Vaccine 2020-09-03 11:38:00 Completed [facility] Moderna COVID-19 Vaccine Moderna COVID-19 Vaccine 2020-09-03 11:38:00 Completed [facility] Moderna COVID-19 Vaccine Moderna COVID-19 Vaccine 2020-09-03 11:38:00 Completed [facility] Moderna COVID-19 Vaccine Moderna COVID-19 Vaccine 2020-09-03 11:38:00 Completed [facility] Moderna COVID-19 Vaccine Moderna COVID-19 Vaccine 2020-09-03 11:38:00 Completed [facility] Moderna COVID-19 Vaccine Moderna COVID-19 Vaccine 2020-09-03 11:38:00 Completed [facility] Moderna COVID-19 Vaccine Moderna COVID-19 Vaccine 2020-09-03 11:38:00 Completed [facility] Moderna COVID-19 Vaccine Moderna COVID-19 Vaccine 2020-09-03 11:38:00 Completed [facility] Moderna COVID-19 Vaccine Moderna COVID-19 Vaccine 2020-09-03 11:38:00 Completed [facility] Moderna COVID-19 Vaccine Moderna COVID-19 Vaccine 2020-09-03 11:38:00 Completed [facility] Moderna COVID-19 Vaccine Moderna COVID-19 Vaccine 2020-09-03 11:38:00 Completed [facility] Moderna COVID-19 Vaccine Moderna COVID-19 Vaccine 2020-09-03 11:38:00 Completed [facility] Moderna COVID-19 Vaccine Moderna COVID-19 Vaccine 2020-09-03 11:38:00 Completed [facility] Moderna COVID-19 Vaccine Moderna COVID-19 Vaccine 2020-09-03 11:38:00 Completed [facility] Afluria Afluria 2020-01-29 10:05:00 Completed [facility] Afluria Afluria 2020-01-29 10:05:00 Completed [facility] Afluria Afluria 2020-01-29 10:05:00 Completed [facility] Afluria Afluria 2020-01-29 10:05:00 Completed [facility] Afluria Afluria 2020-01-29 10:05:00 Completed [facility] Afluria Afluria 2020-01-29 10:05:00 Completed [facility] Afluria Afluria 2020-01-29 10:05:00 Completed [facility] Afluria Afluria 2020-01-29 10:05:00 Completed [facility] Afluria Afluria 2020-01-29 10:05:00 Completed [facility] Afluria Afluria 2020-01-29 10:05:00 Completed [facility] Afluria Afluria 2020-01-29 10:05:00 Completed [facility] Afluria Afluria 2020-01-29 10:05:00 Completed [facility] Afluria Afluria 2020-01-29 10:05:00 Completed [facility] Afluria Afluria 2020-01-29 10:05:00 Completed [facility] Afluria Afluria 2020-01-29 10:05:00 Completed [facility] Afluria Afluria 2020-01-29 10:05:00 Completed [facility] FluAD FluAD 2018-11-08 09:31:00 Completed [facility] FluAD FluAD 2018-11-08 09:31:00 Completed [facility] FluAD FluAD 2018-11-08 09:31:00 Completed [facility] FluAD FluAD 2018-11-08 09:31:00 Completed [facility] FluAD FluAD 2018-11-08 09:31:00 Completed [facility] FluAD FluAD 2018-11-08 09:31:00 Completed [facility] FluAD FluAD 2018-11-08 09:31:00 Completed [facility] FluAD FluAD 2018-11-08 09:31:00 Completed [facility] FluAD FluAD 2018-11-08 09:31:00 Completed [facility] FluAD FluAD 2018-11-08 09:31:00 Completed [facility] FluAD FluAD 2018-11-08 09:31:00 Completed [facility] FluAD FluAD 2018-11-08 09:31:00 Completed [facility] FluAD FluAD 2018-11-08 09:31:00 Completed [facility] FluAD FluAD 2018-11-08 09:31:00 Completed [facility] FluAD FluAD 2018-11-08 09:31:00 Completed [facility] FluAD FluAD 2018-11-08 09:31:00 Completed [facility] FluAD FluAD 2018-11-08 00:00:00 Completed [facility] FLUZONE HIGH DOSE OVER 65 FLUZONE HIGH DOSE OVER 65 2017-10-31 12:06:00 Completed [facility] FLUZONE HIGH DOSE OVER 65 FLUZONE HIGH DOSE OVER 65 2017-10-31 12:06:00 Completed [facility] FLUZONE HIGH DOSE OVER 65 FLUZONE HIGH DOSE OVER 65 2017-10-31 12:06:00 Completed [facility] FLUZONE HIGH DOSE OVER 65 FLUZONE HIGH DOSE OVER 65 2017-10-31 12:06:00 Completed [facility] FLUZONE HIGH DOSE OVER 65 FLUZONE HIGH DOSE OVER 65 2017-10-31 12:06:00 Completed [facility] FLUZONE HIGH DOSE OVER 65 FLUZONE HIGH DOSE OVER 65 2017-10-31 12:06:00 Completed [facility] FLUZONE HIGH DOSE OVER 65 FLUZONE HIGH DOSE OVER 65 2017-10-31 12:06:00 Completed [facility] FLUZONE HIGH DOSE OVER 65 FLUZONE HIGH DOSE OVER 65 2017-10-31 12:06:00 Completed [facility] FLUZONE HIGH DOSE OVER 65 FLUZONE HIGH DOSE OVER 65 2017-10-31 12:06:00 Completed [facility] FLUZONE HIGH DOSE OVER 65 FLUZONE HIGH DOSE OVER 65 2017-10-31 12:06:00 Completed [facility] FLUZONE HIGH DOSE OVER 65 FLUZONE HIGH DOSE OVER 65 2017-10-31 12:06:00 Completed [facility] FLUZONE HIGH DOSE OVER 65 FLUZONE HIGH DOSE OVER 65 2017-10-31 12:06:00 Completed [facility] FLUZONE HIGH DOSE OVER 65 FLUZONE HIGH DOSE OVER 65 2017-10-31 12:06:00 Completed [facility] FLUZONE HIGH DOSE OVER 65 FLUZONE HIGH DOSE OVER 65 2017-10-31 12:06:00 Completed [facility] FLUZONE HIGH DOSE OVER 65 FLUZONE HIGH DOSE OVER 65 2017-10-31 12:06:00 Completed [facility] FLUZONE HIGH DOSE OVER 65 FLUZONE HIGH DOSE OVER 65 2017-10-31 12:06:00 Completed [facility] Prevnar 20 (PCV20) Prevnar 20 (PCV20) Unknown Completed [facility] Moderna COVID-19 Vaccine Moderna COVID-19 Vaccine Unknown Completed [facility] Fluarix (IIV4) - SDS - 0.5mL Fluarix (IIV4) - SDS - 0.5mL Unknown Completed [facility] FluAD FluAD Unknown Completed [facility] Afluria Afluria Unknown Completed [facility] Flucelvax (ccIIV4) - SDS - 0.5mL Flucelvax (ccIIV4) - SDS - 0.5mL Unknown Completed [facility] FLUZONE HIGH DOSE OVER 65 FLUZONE HIGH DOSE OVER 65 Unknown Completed [facility] Prevnar 20 (PCV20) Prevnar 20 (PCV20) Unknown Completed [facility] Moderna COVID-19 Vaccine Moderna COVID-19 Vaccine Unknown Completed [facility] Fluarix (IIV4) - SDS - 0.5mL Fluarix (IIV4) - SDS - 0.5mL Unknown Completed [facility] FluAD FluAD Unknown Completed [facility] Afluria Afluria Unknown Completed [facility] Flucelvax (ccIIV4) - SDS - 0.5mL Flucelvax (ccIIV4) - SDS - 0.5mL Unknown Completed [facility] FLUZONE HIGH DOSE OVER 65 FLUZONE HIGH DOSE OVER 65 Unknown Completed [facility] Prevnar 20 (PCV20) Prevnar 20 (PCV20) Unknown Completed [facility] Moderna COVID-19 Vaccine Moderna COVID-19 Vaccine Unknown Completed [facility] Fluarix (IIV4) - SDS - 0.5mL Fluarix (IIV4) - SDS - 0.5mL Unknown Completed [facility] FluAD FluAD Unknown Completed [facility] Afluria Afluria Unknown Completed [facility] Flucelvax (ccIIV4) - SDS - 0.5mL Flucelvax (ccIIV4) - SDS - 0.5mL Unknown Completed [facility] FLUZONE HIGH DOSE OVER 65 FLUZONE HIGH DOSE OVER 65 Unknown Completed [facility] Prevnar 20 (PCV20) Prevnar 20 (PCV20) Unknown Completed [facility] Moderna COVID-19 Vaccine Moderna COVID-19 Vaccine Unknown Completed [facility] Fluarix Fluarix Unknown Completed [facility] FluAD FluAD Unknown Completed [facility] Afluria Afluria Unknown Completed [facility] Flucelvax - single dose syringe Flucelvax - single dose syringe Unknown Completed [facility] FLUZONE HIGH DOSE OVER 65 FLUZONE HIGH DOSE OVER 65 Unknown Completed [facility] Prevnar 20 (PCV20) Prevnar 20 (PCV20) [facility] COVID-19 Vaccine Unknown Completed [facility] Fluarix Fluarix Unknown Completed [facility] FluAD FluAD Unknown Completed [facility] Afluria Afluria Unknown Completed [facility] Flucelvax - single dose syringe Flucelvax - single dose syringe Unknown Completed [facility] FLUZONE HIGH DOSE OVER 65 FLUZONE HIGH DOSE OVER 65 Unknown Completed [facility] Prevnar 20 (PCV20) Prevnar 20 (PCV20) Unknown Completed [facility] Moderna COVID-19 Vaccine Moderna COVID-19 Vaccine Unknown Completed [facility] Fluarix Fluarix Unknown Completed [facility] FluAD FluAD Unknown Completed [facility] Afluria Afluria Unknown Completed [facility] Flucelvax - single dose syringe Flucelvax - single dose syringe Unknown Completed [facility] FLUZONE HIGH DOSE OVER 65 FLUZONE HIGH DOSE OVER 65 Unknown Completed [facility] Prevnar 20 (PCV20) Prevnar 20 (PCV20) Unknown Completed [facility] Moderna COVID-19 Vaccine Moderna COVID-19 Vaccine Unknown Completed [facility] Fluarix (IIV4) - SDS - 0.5mL Fluarix (IIV4) - SDS - 0.5mL Unknown Completed [facility] FluAD FluAD Unknown Completed [facility] Afluria Afluria Unknown Completed [facility] Flucelvax (ccIIV4) - SDS - 0.5mL Flucelvax (ccIIV4) - SDS - 0.5mL Unknown Completed [facility] FLUZONE HIGH DOSE OVER 65 FLUZONE HIGH DOSE OVER 65 Unknown Completed [facility] Prevnar 20 (PCV20) Prevnar 20 (PCV20) Unknown Completed [facility] Moderna COVID-19 Vaccine Moderna COVID-19 Vaccine Unknown Completed [facility] Fluarix (IIV4) - SDS - 0.5mL Fluarix (IIV4) - SDS - 0.5mL Unknown Completed [facility] FluAD FluAD Unknown Completed [facility] Afluria Afluria Unknown Completed [facility] Flucelvax (ccIIV4) - SDS - 0.5mL Flucelvax (ccIIV4) - SDS - 0.5mL Unknown Completed [facility] FLUZONE HIGH DOSE OVER 65 FLUZONE HIGH DOSE OVER 65 Unknown Completed [facility] Prevnar 20 (PCV20) Prevnar 20 (PCV20) Unknown Completed [facility] Moderna COVID-19 Vaccine Moderna COVID-19 Vaccine Unknown Completed [facility] Fluarix (IIV4) - SDS - 0.5mL Fluarix (IIV4) - SDS - 0.5mL Unknown Completed [facility] FluAD FluAD Unknown Completed [facility] Afluria Afluria Unknown Completed [facility] Flucelvax (ccIIV4) - SDS - 0.5mL Flucelvax (ccIIV4) - SDS - 0.5mL Unknown Completed [facility] FLUZONE HIGH DOSE OVER 65 FLUZONE HIGH DOSE OVER 65 Unknown Completed [facility] Prevnar 20 (PCV20) Prevnar 20 (PCV20) Unknown Completed [facility] Moderna COVID-19 Vaccine Moderna COVID-19 Vaccine Unknown Completed [facility] Fluarix (IIV4) - SDS - 0.5mL Fluarix (IIV4) - SDS - 0.5mL Unknown Completed [facility] FluAD FluAD Unknown Completed [facility] Afluria Afluria Unknown Completed [facility] Flucelvax (ccIIV4) - SDS - 0.5mL Flucelvax (ccIIV4) - SDS - 0.5mL Unknown Completed [facility] FLUZONE HIGH DOSE OVER 65 FLUZONE HIGH DOSE OVER 65 Unknown Completed [facility] Prevnar 20 (PCV20) Prevnar 20 (PCV20) Unknown Completed [facility] Moderna COVID-19 Vaccine Moderna COVID-19 Vaccine Unknown Completed [facility] Fluarix (IIV4) - SDS - 0.5mL Fluarix (IIV4) - SDS - 0.5mL Unknown Completed [facility] FluAD FluAD Unknown Completed [facility] Afluria Afluria Unknown Completed [facility] Flucelvax (ccIIV4) - SDS - 0.5mL Flucelvax (ccIIV4) - SDS - 0.5mL Unknown Completed [facility] FLUZONE HIGH DOSE OVER 65 FLUZONE HIGH DOSE OVER 65 Unknown Completed [facility] Prevnar 20 (PCV20) Prevnar 20 (PCV20) Unknown Completed [facility] Moderna COVID-19 Vaccine Moderna COVID-19 Vaccine Unknown Completed [facility] Fluarix (IIV4) - SDS - 0.5mL Fluarix (IIV4) - SDS - 0.5mL Unknown Completed [facility] FluAD FluAD Unknown Completed [facility] Afluria Afluria Unknown Completed [facility] Flucelvax (ccIIV4) - SDS - 0.5mL Flucelvax (ccIIV4) - SDS - 0.5mL Unknown Completed [facility] FLUZONE HIGH DOSE OVER 65 FLUZONE HIGH DOSE OVER 65 Unknown Completed [facility] Prevnar 20 (PCV20) Prevnar 20 (PCV20) Unknown Completed [facility] Moderna COVID-19 Vaccine Moderna COVID-19 Vaccine Unknown Completed [facility] Fluarix (IIV4) - SDS - 0.5mL Fluarix (IIV4) - SDS - 0.5mL Unknown Completed [facility] FluAD FluAD Unknown Completed [facility] Afluria Afluria Unknown Completed [facility] Flucelvax (ccIIV4) - SDS - 0.5mL Flucelvax (ccIIV4) - SDS - 0.5mL Unknown Completed [facility] FLUZONE HIGH DOSE OVER 65 FLUZONE HIGH DOSE OVER 65 Unknown Completed [facility] Prevnar 20 (PCV20) Prevnar 20 (PCV20) Unknown Completed [facility] Moderna COVID-19 Vaccine Moderna COVID-19 Vaccine Unknown Completed [facility] Fluarix (IIV4) - SDS - 0.5mL Fluarix (IIV4) - SDS - 0.5mL Unknown Completed [facility] FluAD FluAD Unknown Completed [facility] Afluria Afluria Unknown Completed [facility] Flucelvax (ccIIV4) - SDS - 0.5mL Flucelvax (ccIIV4) - SDS - 0.5mL Unknown Completed [facility] FLUZONE HIGH DOSE OVER 65 FLUZONE HIGH DOSE OVER 65 Unknown Completed [facility] Prevnar 20 (PCV20) Prevnar 20 (PCV20) Unknown Completed [facility] Moderna COVID-19 Vaccine Moderna COVID-19 Vaccine Unknown Completed [facility] Fluarix (IIV4) - SDS - 0.5mL Fluarix (IIV4) - SDS - 0.5mL Unknown Completed [facility] FluAD FluAD Unknown Completed [facility] Afluria Afluria Unknown Completed [facility] Flucelvax (ccIIV4) - SDS - 0.5mL Flucelvax (ccIIV4) - SDS - 0.5mL Unknown Completed [facility] FLUZONE HIGH DOSE OVER 65 FLUZONE HIGH DOSE OVER 65 Unknown Completed [facility] Prevnar 20 (PCV20) Prevnar 20 (PCV20) [facility] Moderna COVID-19 Vaccine Unknown Completed [facility] Fluarix (IIV4) - SDS - 0.5mL Fluarix (IIV4) - SDS - 0.5mL Unknown Completed [facility] FluAD FluAD Unknown Completed [facility] Afluria Afluria Unknown Completed [facility] Flucelvax (ccIIV4) - SDS - 0.5mL Flucelvax (ccIIV4) - SDS - 0.5mL Unknown Completed [facility] FLUZONE HIGH DOSE OVER 65 FLUZONE HIGH DOSE OVER 65 Unknown Completed [facility] Prevnar 20 (PCV20) Prevnar 20 (PCV20) Unknown Completed [facility] Moderna COVID-19 Vaccine Moderna COVID-19 Vaccine Unknown Completed [facility] Fluarix (IIV4) - SDS - 0.5mL Fluarix (IIV4) - SDS - 0.5mL Unknown Completed [facility] FluAD FluAD Unknown Completed [facility] Afluria Afluria Unknown Completed [facility] Flucelvax (ccIIV4) - SDS - 0.5mL Flucelvax (ccIIV4) - SDS - 0.5mL Unknown Completed [facility] FLUZONE HIGH DOSE OVER 65 FLUZONE HIGH DOSE OVER 65 Unknown Completed [facility] Prevnar 20 (PCV20) Prevnar 20 (PCV20) Unknown Completed [facility] Moderna COVID-19 Vaccine Moderna COVID-19 Vaccine Unknown Completed [facility] Fluarix (IIV4) - SDS - 0.5mL Fluarix (IIV4) - SDS - 0.5mL Unknown Completed [facility] FluAD FluAD Unknown Completed [facility] Afluria Afluria Unknown Completed [facility] Flucelvax (ccIIV4) - SDS - 0.5mL Flucelvax (ccIIV4) - SDS - 0.5mL Unknown Completed [facility] FLUZONE HIGH DOSE OVER 65 FLUZONE HIGH DOSE OVER 65 Unknown Completed [facility] Prevnar 20 (PCV20) Prevnar 20 (PCV20) Unknown Completed [facility] Moderna COVID-19 Vaccine Moderna COVID-19 Vaccine Unknown Completed [facility] Fluarix (IIV4) - SDS - 0.5mL Fluarix (IIV4) - SDS - 0.5mL Unknown Completed [facility] FluAD FluAD Unknown Completed [facility] Afluria Afluria Unknown Completed [facility] Flucelvax (ccIIV4) - SDS - 0.5mL Flucelvax (ccIIV4) - SDS - 0.5mL Unknown Completed [facility] FLUZONE HIGH DOSE OVER 65 FLUZONE HIGH DOSE OVER 65 Unknown Completed [facility] Prevnar 20 (PCV20) Prevnar 20 (PCV20) Unknown Completed [facility] Moderna COVID-19 Vaccine Moderna COVID-19 Vaccine Unknown Completed [facility] Fluarix (IIV4) - SDS - 0.5mL Fluarix (IIV4) - SDS - 0.5mL Unknown Completed [facility] FluAD FluAD Unknown Completed [facility] Afluria Afluria Unknown Completed [facility] Flucelvax (ccIIV4) - SDS - 0.5mL Flucelvax (ccIIV4) - SDS - 0.5mL Unknown Completed [facility] FLUZONE HIGH DOSE OVER 65 FLUZONE HIGH DOSE OVER 65 Unknown Completed [facility] Vital Signs Vital Name Observation Time Observation Value Comments S ource height 2023-04-02 08:00:00 68 [in_i] [facility] weight 2023-04-02 08:00:00 220 [lb_av] Comm on [facility] bmi 2023-04-02 08:00:00 33.45 kg/m2 Comm on [facility] Body Weight 2023-03-20 00:00:00 167 [lb_av] [facility] Height 2023-03-20 00:00:00 68 [in_i] [facility] BMI (Body Mass Index) 2023-03-20 00:00:00 25.4 kg/m2 [facility] height 2023-03-09 09:00:00 68 [facility]in_i[facility] 09:00:00 221 [lb_av] Comm on [facility] bmi 2023-03-09 09:00:00 33.6 kg/m2 Comm n [facility] height 2022-11-21 09:20:00 68 [in_i] [facility] weight 2022-11-21 09:20:00 221.0 [lb_av] Co mmon [facility] temperature 2022-11-21 09:20:00 97.4 [degF] Com mon [facility] bmi 2022-11-21 09:20:00 33.6 kg/m2 Commo n [facility] oximetry 2022-11-21 09:20:00 99 % Commo n [facility] respiratory rate 2022-11-21 09:20:00 18 /min Common [facility] blood pressure systolic 2022-11-21 09:20:00 130 mm[Hg] [facility] blood pressure diastolic 2022-11-21 09:20:00 72 mm[Hg] [facility] height 2022-11-09 09:00:00 68 [in_i] Commo n [facility] weight 2022-11-09 09:00:00 221 [lb_av] Comm on [facility] temperature 2022-11-09 09:00:00 98.4 [degF] Com [facility] bmi 2022-11-09 09:00:00 33.6 kg/m2 Commo n [facility] blood pressure systolic 2022-11-09 09:00:00 130 mm[Hg] [facility] blood pressure diastolic 2022-11-09 09:00:00 74 mm[Hg] [facility] height 2022-11-07 13:20:00 68 [in_i] Commo n [facility] weight 2022-11-07 13:20:00 220 [lb_av] Comm on [facility] temperature 2022-11-07 13:20:00 98.3 [degF] Com [facility] bmi 2022-11-07 13:20:00 33.45 kg/m2 Comm on [facility] oximetry 2022-11-07 13:20:00 99 % Commo n [facility] respiratory rate 2022-11-07 13:20:00 16 /min Common [facility] blood pressure systolic 2022-11-07 13:20:00 126 mm[Hg] [facility] blood pressure diastolic 2022-11-07 13:20:00 78 mm[Hg] [facility] blood pressure systolic 2022-10-09 09:20:00 117 mm[Hg] [facility] blood pressure diastolic 2022-10-09 09:20:00 72 mm[Hg] [facility] height 2022-10-09 09:20:00 68 [in_i] Commo n [facility] weight 2022-10-09 09:20:00 220 [lb_av] Comm on [facility] temperature 2022-10-09 09:20:00 97.0 [degF] Com [facility] bmi 2022-10-09 09:20:00 33.45 kg/m2 Comm on [facility] oximetry 2022-10-09 09:20:00 97 % Commo n [facility] respiratory rate 2022-10-09 09:20:00 17 /min [facility] height 2022-08-21 13:30:00 68 [in_i] Commo n [facility] weight 2022-08-21 13:30:00 220 [lb_av] Comm on [facility] temperature 2022-08-21 13:30:00 97.3 [degF] Com [facility] bmi 2022-08-21 13:30:00 33.45 kg/m2 Comm on [facility] oximetry 2022-08-21 13:30:00 99 % Commo n [facility] respiratory rate 2022-08-21 13:30:00 17 /min [facility] blood pressure systolic 2022-08-21 13:30:00 137 mm[Hg] [facility] blood pressure diastolic 2022-08-21 13:30:00 73 mm[Hg] [facility] height 2022-08-21 13:00:00 68 [in_i] Commo n [facility] weight 2022-08-21 13:00:00 220 [lb_av] Comm on [facility] temperature 2022-08-21 13:00:00 97.3 [degF] Com mon [facility] bmi 2022-08-21 13:00:00 33.45 kg/m2 Comm on [facility] oximetry 2022-08-21 13:00:00 99 % Commo n [facility] respiratory rate 2022-08-21 13:00:00 17 /min [facility] blood pressure systolic 2022-08-21 13:00:00 137 mm[Hg] [facility] blood pressure diastolic 2022-08-21 13:00:00 73 mm[Hg] [facility] Height 2021-12-12 00:00:00 68 [in_i] [facility] BMI (Body Mass Index) 2021-12-12 00:00:00 33.5 kg/m2 [facility] Body Weight 2021-12-12 00:00:00 220 [lb_av] [facility] height 2021-12-12 08:20:00 68 [in_i] Commo n [facility] weight 2021-12-12 08:20:00 220 [lb_av] Comm on [facility] bmi 2021-12-12 08:20:00 33.45 kg/m2 Comm on [facility] height 2021-09-28 08:00:00 68 [in_i] Commo n [facility] weight 2021-09-28 08:00:00 220 [lb_av] Comm on [facility] temperature 2021-09-28 08:00:00 99.1 [degF] Com mon [facility] bmi 2021-09-28 08:00:00 33.45 kg/m2 Comm on [facility] blood pressure systolic 2021-09-28 08:00:00 125 mm[Hg] [facility] blood pressure diastolic 2021-09-28 08:00:00 70 mm[Hg] [facility] height 2021-08-15 09:30:00 68 [in_i] Commo n [facility] weight 2021-08-15 09:30:00 195 [lb_av] Comm on [facility] bmi 2021-08-15 09:30:00 29.65 kg/m2 Comm on [facility] blood pressure systolic 2021-08-15 09:30:00 112 mm[Hg] [facility] blood pressure diastolic 2021-08-15 09:30:00 79 mm[Hg] [facility] height 2021-07-18 08:30:00 68 [in_i] Commo n [facility] weight 2021-07-18 08:30:00 195 [lb_av] Comm on [facility] temperature 2021-07-18 08:30:00 97.7 [degF] Com mon [facility] bmi 2021-07-18 08:30:00 29.65 kg/m2 Comm on [facility] blood pressure systolic 2021-07-18 08:30:00 130 mm[Hg] [facility] blood pressure diastolic 2021-07-18 08:30:00 72 mm[Hg] [facility] height 2021-06-30 10:15:00 68 [in_i] Commo n [facility] weight 2021-06-30 10:15:00 195 [lb_av] Comm on [facility] bmi 2021-06-30 10:15:00 29.65 kg/m2 Comm on [facility] blood pressure systolic 2021-06-30 10:15:00 130 mm[Hg] [facility] blood pressure diastolic 2021-06-30 10:15:00 72 mm[Hg] [facility] height 2021-03-11 08:00:00 68 [in_i] Commo n [facility] weight 2021-03-11 08:00:00 200 [lb_av] Comm on [facility] temperature 2021-03-11 08:00:00 97.8 [degF] Com mon [facility] bmi 2021-03-11 08:00:00 30.41 kg/m2 Comm on [facility] Procedures Procedure Date / Time Performed Performing Clinician Source XR, knee, 1 or 2 view 2023-03-20 00:00:00 [facility] [id number] 2022-12-20 00:00:00 [facility] [id number] 2022-12-20 00:00:00 [facility] [id number] 2022-12-20 00:00:00 [facility] [id number] 2022-12-18 00:00:00 [facility] [id number] 2022-12-18 00:00:00 [facility] [id number] 2022-12-18 00:00:00 [facility] XR, knee, 4 or more view 2021-12-12 00:00:00 [facility] Hysterectomy [facility] Plan of Care Planned Activity Planned Date Details Comments Source Future Appointment 2023-06-19 10:00:00 Ian Monzon, [address] [place] [id number] [facility] Encounters Start Date/Time End Date/Time Encounter Type Admission Type Attending Clinicians Care Facility Care Department Encounter ID Source 2023-03-07 08:28:[id number] [facility] 2023-03-05 11:04:00 [facility] [id number] [facility] 2022-12-19 10:04:00 Outpatient Bhakta, Nikolay STANIKALC STLMLC [id number] [facility] 2022-11-09 11:20:00 Outpatient Bhakta, Nikolay STLC STLMLC [id number] [facility] 2022-11-07 14:39:00 Outpatient Bhakta, Nikolay STANIKALC STLMLC [id number] [facility] 2022-11-02 10:30:00 Outpatient Bhakta, Nikolay STANIKALC STLMLC [id number] [facility] 2022-09-06 09:05:00 Outpatient Bhakta, Nikolay STLC STLMLC [id number] [facility] 2022-08-14 09:39:00 Outpatient Bhakta, Nikolay STLC STLC [id number] [facility] 2022-08-02 13:42:00 Outpatient Ofelia KHALIL STLC STLC [id number] [facility] 2022-06-26 09:37:01 Outpatient Ofelia Khalil STANIKALC STLC [id number] [facility] 2022-02-22 12:30:00 Inpatient NealCarlie connors HCATO HCATO [id number] [facility] 2022-01-27 09:45:01 Outpatient Good, Na STLC STLC [id number] [facility] 2022-01-03 08:06:00 Outpatient Latisha Na STLMLC STLMLC [id number] [facility] 2021-12-08 08:08:00 Outpatient Latisha Na STLMLC STLMLC [id number] [facility] 2021-10-04 11:22:00 Outpatient Latisha Na STLMLC STLMLC [id number] [facility] 2021-09-26 09:17:00 Outpatient Good, Na STLMLC STLMLC [id number] [facility] 2021-08-23 09:54:00 Outpatient Good, Na STLMLC STLMLC [id number] [facility] 2021-06-27 08:14:00 Outpatient Good, Na STLMLC STLMLC [id number] [facility] 2021-06-24 11:35:01 Outpatient Good, Na STLMLC STLMLC [id number] [facility] 2021-06-07 10:43:00 Outpatient Jannette Good STLMLC STLMLC [id number] [facility] 2021-05-18 16:35:00 Outpatient Jannette Good STLMLC STLMLC [id number] [facility] 2021-03-23 14:34:30 Outpatient Jannette Good STLMLC STLMLC [id number] [facility] 2021-03-23 14:00:26 Outpatient Jannette Good STLMLC STLMLC [id number] [facility] 2021-03-23 13:58:30 Outpatient Jannette Good STLMLC STLMLC [id number] [facility] 2021-03-23 13:57:22 Outpatient GoodJannette curry STLMLC STLMLC [id number] [facility] 2021-03-23 13:23:44 Outpatient Good, Na STLMLC STLMLC [id number] [facility] 2021-03-23 12:45:34 Outpatient Latisha Na STLMLC STLMLC [id number] [facility] 2021-03-23 12:36:03 Outpatient Good, Na STLMLC STLMLC [id number] [facility] 2021-03-23 12:21:11 Outpatient Jannette Good STGERARDO STLMLC [id number] [facility] 2021-03-23 12:09:34 Outpatient Jannette Good STGERARDO STLMLC [id number] [facility] 2021-03-23 11:58:50 Outpatient Jannette Good STANIKALC STLMLC [id number] [facility] 2021-03-23 11:33:44 Outpatient Jannette Good STANIKALC STLMLC [id number] [facility] 2021-03-23 11:31:40 Outpatient Jannette Good STGERARDO STLMLC [id number] [facility] 2021-03-23 11:18:14 Outpatient Jannette Good STANIKALC STLMLC [id number] [facility] 2021-03-23 11:16:56 Outpatient Jannette Good STANIKALC STLMLC [id number] [facility] 2023-04-02 00:00:00 2023-04-02 00:00:00 OFFICE VISIT ESTAB PT LEVEL 3 STLMLC STLMLC [id number] [facility] 2023-03-30 00:00:00 2023-03-30 00:00:00 (TEL) STLMLC STLMLC [id number] [facility] 2023-03-29 00:00:00 2023-03-29 00:00:00 (TEL) STLMLC STLMLC [id number] [facility] 2023-03-20 00:00:00 2023-03-20 00:00:00 Ian Monzon MD: [address] [place] [phone] , Ph. [phone] [place] [facility] [place] [facility] [place] [id number] [facility] 2023-03-09 00:00:00 2023-03-09 00:00:00 (TEL) [facility] [id number] [facility] 2023-03-09 00:00:00 2023-03-09 00:00:00 (EST. VIDEO) EST VIRTUAL VIDEO VISIT [facility] [id number] [facility] 2023-03-07 00:00:00 2023-03-07 00:00:00 Outpatient FOG_Behrens _Jon_MD AOSM AOSM [id number] [facility] 2023-03-05 00:00:00 2023-03-05 00:00:00 (TEL) [facility] [id number] [facility] 2023-02-23 00:00:00 2023-02-23 00:00:00 Outpatient FOG_Behrens _Jon_MD AOSM AOSM [id number] [facility] 2023-02-20 00:00:00 2023-02-20 00:00:00 (TEL) [facility] [id number] [facility] 2023-01-01 00:00:00 2023-01-01 00:00:00 Outpatient FOG_Burke_R obert_MD AOSM AOSM [id number] [facility] 2023-01-01 00:00:00 2023-01-01 00:00:00 Outpatient FOG_Burke_R obert_MD AOSM AOSM [id number] [facility] 2023-01-01 00:00:00 2023-01-01 00:00:00 Outpatient FOG_Burke_R obert_MD AOSM AOSM [id number] [facility] 2022-12-25 00:00:00 2022-12-25 00:00:00 Outpatient GC_GCBZW_Ka diyala_S PRIV PRIV [id number] [facility] 2022-12-24 00:00:00 2022-12-24 00:00:00 Outpatient GC_GCBZW_Ka Lucia [facility] [id number] [facility] 2022-12-20 15:46:00 2022-12-21 16:12:00 Inpatient Ian Kerr HCATO SURG [id number] [facility] 2022-12-08 16:36:00 2022-12-08 16:36:00 Outpatient Ian Monzon HCACL LABO [id number] [facility] 2022-10-10 08:00:00 2022-12-08 16:00:00 Outpatient Carlie Simmons HCATO LABO [id number] [facility] 2022-12-08 10:50:00 2022-12-08 10:50:00 Outpatient Ian Kerr HCATO RADI [id number] [facility] 2022-11-29 00:00:00 2022-11-29 00:00:00 Outpatient FOG_Burke_R obertHAVEN AOSM AOSM [id number] [facility] 2022-11-29 00:00:00 2022-11-29 00:00:00 Outpatient FOG_Burke_R obertHAVEN AOSM AOSM [id number] [facility] 2022-11-29 00:00:00 2022-11-29 00:00:00 Outpatient FOG_Burke_R obert_ AOSM AOSM [id number] [facility] 2022-11-29 00:00:00 2022-11-29 00:00:00 Outpatient FOG_Burke_R obert_ AOSM AOSM [id number] [facility] 2022-11-29 00:00:00 2022-11-29 00:00:00 Outpatient FOG_Burke_R obert_ AOSM AOSM [id number] [facility] 2022-11-29 00:00:00 2022-11-29 00:00:00 Outpatient FOG_Olinda Rainey AOSM AOSM [id number] [facility] 2022-11-29 00:00:00 2022-11-29 00:00:00 Outpatient FOG_Olinda Rainey AOSM AOSM [id number] [facility] 2022-11-23 00:00:00 2022-11-23 00:00:00 [facility]TEL) [facility] [id number] [facility] 2022-11-21 00:00:00 2022-11-21 00:00:00 OFFICE VISIT ESTAB PT LEVEL 4 [facility] [id number] [facility] 2022-11-14 00:00:00 2022-11-14 00:00:00 (TEL) [facility] [id number] [facility] 2022-11-13 00:00:00 2022-11-13 00:00:00 Outpatient FOG_Olinda Rainey AOSM AOSM [id number] [facility] 2022-11-13 00:00:00 2022-11-13 00:00:00 Outpatient FOG_Olinda Rainey AOSM AOSM [id number] [facility] 2022-11-13 00:00:00 2022-11-13 00:00:00 Outpatient FOG_Olinda Rainey AOSM AOSM [id number] [facility] 2022-11-13 00:00:00 2022-11-13 00:00:00 (TEL) [facility] [id number] [facility] 2022-11-09 00:00:00 2022-11-09 00:00:00 OFFICE VISIT NEW PT LEVEL 3 STLMLC STLMLC [id number] [facility] 2022-11-07 00:00:00 2022-11-07 00:00:00 OFFICE VISIT ESTAB PT LEVEL 4 STLMLC STLMLC [id number] [facility] 2022-11-07 00:00:00 2022-11-07 00:00:00 (TEL) STLMLC STLMLC [id number] [facility] 2022-11-02 00:00:00 2022-11-02 00:00:00 (TEL) STLMLC STLC [id number] [facility] 2022-10-10 17:10:00 2022-10-10 17:10:00 Outpatient Carlie Garrido HCACL LABO [id number] [facility] 2022-10-10 08:00:00 2022-10-10 09:00:00 Outpatient Ian Kerr HCATO 3DAY [id number] [facility] 2022-10-09 00:00:00 2022-10-09 00:00:00 Outpatient FOG_Burke_R jennifer_ AO AO [id number] [facility] 2022-10-09 00:00:00 2022-10-09 00:00:00 Outpatient FOG_Burke_R jennifer_ AOSM AOSM [id number] [facility] 2022-10-09 00:00:00 2022-10-09 00:00:00 OFFICE VISIT ESTAB PT LEVEL 4 STLMLC STLC [id number] [facility] 2022-10-06 00:00:00 2022-10-06 00:00:00 (TEL) STLMLC STLC [id number] [facility] 2022-09-06 00:00:00 2022-09-06 00:00:00 (TEL) STLC STLC [id number] [facility] 2022-09-05 00:00:00 2022-09-05 00:00:00 Outpatient FOG_Burke_R jennifer_ AOSM AOSM [id number] [facility] 2022-08-21 00:00:00 2022-08-21 00:00:00 OFFICE VISIT ESTAB PT LEVEL 4 [facility] [id number] [facility] 2022-08-21 00:00:00 2022-08-21 00:00:00 SUB ANNUAL MCR WELLNESS VISIT [facility] [id number] [facility] 2022-02-08 00:00:00 2022-02-08 00:00:00 (TEL) [facility] [id number] [facility] 2022-01-05 00:00:00 2022-01-05 00:00:00 Outpatient FOG_Burke_R Redd AOSM AOSM [id number] [facility] 2022-01-05 00:00:00 2022-01-05 00:00:00 Outpatient FOG_Burke_R Redd AOSM AOSM [id number] [facility] 2022-01-05 00:00:00 2022-01-05 00:00:00 Outpatient FOG_Burke_R Redd AOSM AOSM [id number] [facility] 2021-12-16 00:00:00 2021-12-16 00:00:00 Outpatient FOG_Burke_R Redd AOSM AOSM [id number] [facility] 2021-12-14 00:00:00 2021-12-14 00:00:00 (TEL) [facility] [id number] [facility] 2021-12-12 00:00:00 2021-12-12 00:00:00 Outpatient FOG_Burke_R obJamaica AOSM AOSM [id number] [facility] 2021-12-12 00:00:00 2021-12-12 00:00:00 Carlie Garrido MD: [address] [place] [address] , Ph. [phone] AOSM [place] [facility] [place] [facility] [id number] [facility] 2021-12-12 00:00:00 2021-12-12 00:00:00 OFFICE VISIT ESTAB PT LEVEL 4 STLMLC STLC [id number] [facility] 2021-12-11 00:00:00 2021-12-11 00:00:00 Outpatient FOG_Olinda Rainey AO AO [id number] [facility] 2021-12-09 00:00:00 2021-12-09 00:00:00 (TEL) STLMLC STLC [id number] [facility] 2021-11-02 00:00:00 2021-11-02 00:00:00 Outpatient FOG_Burke_R Redd AO AO [id number] [facility] 2021-09-28 00:00:00 2021-09-28 00:00:00 OFFICE VISIT ESTAB PT LEVEL 4 STLMLC STLMLC [id number] [facility] 2021-09-12 12:59:00 2021-09-12 12:59:00 Outpatient FOG_Burke_R Redd AO AO [id number] [facility] 2021-08-24 00:00:00 2021-08-24 00:00:00 (TEL) STLMLC STLMLC [id number] [facility] 2021-08-15 00:00:00 2021-08-15 00:00:00 OFFICE VISIT EST PT LEVEL 3 STLMLC STLMLC [id number] [facility] 2021-07-18 00:00:00 2021-07-18 00:00:00 OFFICE VISIT EST PT LEVEL 3 STLMLC STLMLC [id number] [facility] 2021-07-06 00:00:00 2021-07-06 00:00:00 (TEL) STLMLC STLMLC [id number] [facility] 2021-06-30 00:00:00 2021-06-30 00:00:00 OFFICE VISIT NEW PT LEVEL 3 [facility]LMLC STL[facility]C [id number] [facility] 2021-06-29 00:00:00 2021-06-29 00:00:00 OL DIG E/M SVC 21+ MIN STLMLC STLMLC [id number] [facility] 2021-06-24 00:00:00 2021-06-24 00:00:00 (TEL) STLMLC STLMLC [id number] [facility] 2021-03-11 00:00:00 2021-03-11 00:00:00 OFFICE VISIT ESTAB PT LEVEL 4 [facility]LMLC STLMLC [id number] [facility] 2020-12-03 00:00:00 2020-12-03 00:00:00 OFFICE VISIT ESTAB PT LEVEL 4 [facility]C STL[facility]C [id number] [facility] 2020-10-06 00:00:00 2020-10-06 00:00:00 (TEL) STLMLC STLMLC [id number] [facility] 2020-09-03 00:00:00 2020-09-03 00:00:00 Outpatient STLMLC STLMLC [id number] [facility] 2020-09-03 00:00:00 2020-09-03 00:00:00 Outpatient STLMLC STLMLC [id number] [facility] 2020-08-23 00:00:00 2020-08-23 00:00:00 (TEL) STLMLC STLMLC [id number] [facility] 2020-06-28 00:00:00 2020-06-28 00:00:00 Outpatient STLMLC STLMLC [id number] [facility] 2020 00:00:00 2020 00:00:00 Outpatient STLMLC STLMLC [id number] [facility] 2020-01-29 00:00:00 2020-01-29 00:00:00 Outpatient STLMLC STL[facility]C [id number] [facility] 2020-01-29 00:00:00 2020-01-29 00:00:00 Outpatient STLMLC STLMLC [id number] [facility] 2019-09-15 00:00:00 2019-09-15 00:00:[address] [facility] [id number] [facility] 2019-06-16 08:40:00 2019-06-16 08:40:[address] [facility] [facility] [id number] [facility] 2019-05-30 15:47:00 2019-05-30 15:47:[address] [facility] [facility] [id number] [facility] 2019-02-07 08:40:00 2019-02-07 08:40:[address] [facility] [id number] [facility] 2019-01-30 16:14:00 2019-01-30 16:14:00 [facility] [id number] [facility] 2018-11-08 08:40:00 2018-11-08 08:40:[address] [facility] [id number] [facility] 2018-10-22 08:20:00 2018-10-22 08:20:[address] [facility] [id number] [facility] 2018-05-06 08:30:00 2018-05-06 08:30:[address] [facility] [id number] [facility] Results Test Description Test Time Test Comments Results Resul t Comments Source - XR KNEE 1 OR 2 V RT 2022-12-19 10:07:00 [facility] 1960 Sex: F Patient Name: YOUNG FIGUEROA Unit No: [id number] EXAMS: CPT CODE: [id number] XR KNEE 1 OR 2 V RT [id number] IMAGES PROVIDED: 2 FINDINGS: Postoperative changes from right total knee arthoplasty demonstrated without evidence of immediate complication. No acute fracture is visualized. IMPRESSION: Postoperative exam as above. at 1007 Reported and signed by: Brendon Delgadillo M.D. CC: Ian Monzon MD Technologist: RAFFI PEREZ ARRT Transcribed D/ (1007) [email or web address] [facility] NAME: YOUNG FIGUEROA [address] [facility] [address] PHYS: Ian Mix MD : 1960 AGE: 62 SEX: F [place], [place] [address] LOC: Y.504 A PHONE #: [phone] EXAM DATE: 12/18/2022 STATUS: ADM IN FAX #: [phone] RAD #: D/C DT PAGE 1 Signed Report Patient Name: YOUNG FIGUEROA Unit No: [id number] EXAMS: CPT CODE: [id number] XR KNEE 1 OR 2 V RT [id number] (Continued) Orig Print D/T: S: 12/20/2022 (0735) [facility] NAME: YOUNG FIGUEROA [address] [facility] [address] PHYS: Ian Mix MD : 1960 AGE: 62 SEX: F [place], [place] [address] LOC: Y.504 A PHONE #: [phone] EXAM DATE: 12/18/2022 STATUS: ADM IN FAX #: [phone] RAD #: D/C DT PAGE 2 Signed Report SPECIMEN COMMENT: POD #1- US EXTREM NON VASC [id number] 08:06:00 [facility] : 1960 Sex: F Patient Name: YOUNG FIGUEROA Unit No: [id number] EXAMS: CPT CODE: [id number] US EXTREM NON VASC COMP 74637 TECHNIQUE: Callaway scale and Doppler sonographic evaluation [...] Brendon Delgadillo M.D. CC: Carlie Garrido MD [facility] nologist: MONICA EASLEY RDMS, RVT Transcribed D/ (0806) [facility] NAME: YOUNG FIGUEROA [address] [facility] [address] PHYS: UNDEFINED - Undefined Provider : 1960 AGE: 62 SEX: F [place], [place] [address] LOC: Y.RAD PHONE #: [phone] EXAM DATE:12/08/2022 STATUS: DEP CLI FAX #: [phone] RAD #: D/C DT PAGE 1 Signed Report Patient Name: YOUNG FIGUEROA Unit No: [id number] EXAMS: CPT CODE: [id number] US EXTREM NON VASC COMP 75433 (Continued) Orig Print D/T: S: 12/11/2022 (0809) [facility] NAME: YOUNG FIGUEROA [address] [facility] PHYS: UNDEFINED - Undefined Provider : 1960 AGE: 62 SEX: F [place] [address] LOC: Y.RAD PHONE #: [phone] EXAM DATE: 12/08/2022 STATUS: DEP CLI FAX #: [phone] RAD #: D/C DT PAGE 2 Signed ReportGLYCOSYLATED HEMOGLOBIN (HA1C)2022-12-08 21:02:00* Test Item Value Reference Range Interpretation Comme nts GLYCOSYLATED HEMOGLOBIN (HA1C) (test code = GLYHGB) 4.8 % 4.8-5.9 Any conditi on that shortens erythocyte survival or decreasesmean erythrocyte age (e.g., recovery from acute blood loss,hemolytic anemai) will falsely lower HGBA1c resultsregardless of the method used. HGBA1c results frompatients with HbSS, HbCC and HbSc must be interpreted withcaution given the pathological processes, including anemia,increased red cell turnover, transfusion requirements, thatadversely impact HGBA1c as a marker of long-term glycemiccontrol. Alternative forms of testing such as fructosamineshould be considered for these patients.Any condition that shortens erythocyte survival or decreasesmean erythrocyte age (e.g., recovery from acute blood loss,hemolytic anemia) will falsely lower HGBA1c resultsregardless of the method used. HGBA1c results from patientswith HbSS, HbCC, and HbSc must be interpreted with cautiongiven the pathological processes, including anemia,increased red cell turnover, transfusion requirements, thatadversely impact HGBA1c as a marker of long-term glycemiccontrol. Alternative forms of testing such as fructosamineshould be considered for these patients.DONE AT: [facility] [address] [facility], [place] [address] GLYCOSYLATED HEMOGLOBIN (HA1C)2022-12-08 21:01:00* Test Item Value Reference Range Interpretation Comme nts GLYCOSYLATED HEMOGLOBIN (HA1C) (test code = GLYHGB) 4.8 % 4.8-5.9 N Any conditi on that shortens erythocyte survival or decreasesmean erythrocyte age (e.g., recovery from acute blood loss,hemolytic anemia) will falsely lower HGBA1c resultsregardless of the method used. HGBA1c results from patientswith HbSS, HbCC, and HbSc must be interpreted with cautiongiven the pathological processes, including anemia,increased red cell turnover, transfusion requirements, thatadversely impact HGBA1c as a marker of long-term glycemiccontrol. Alternative forms of testing such as fructosamineshould be considered for these patients. COMPREHENSIVE METABOLIC [id number] 14:03:00* Test Item Value Reference Range Interpretation Comme nts SODIUM (test code = NA) 137 mmol/L 136-145 N POTASSIUM (test code = K) 3.8 mmol/L 3.5-5.1 N CHLORIDE (test code = CL) 98.0 mmol/L 98-107 N CARBON DIOXIDE (test code = CO2) 28.9 mmol/L 21-32 N GLUCOSE (test code = GLU) 101 mg/dL 74-106 N BLOOD UREA NITROGEN (test code = BUN) 16 mg/dL 7-18 N GLOMERULAR FILTRATION RATE (test code = GFR) 102.9 >60 The Glomerular Filtration Rate is a calculated parameterbased on serum Creatinine, patient age and sex. GFR valuesless than 60 mL/min/1.73 square meters are indicative ofChronic Kidney Disease. Values less than 15 mL/min/1.73square meters indicate Kidney failure. The calculation forGFR is based on the CKD-EPI (2020) calculation. This formulais race indifferent and is the recommended formula for GFRby the National Kidney Foundation for Adults.The GFR will not calculate if the sex is unknown or if thepatient's age is <18 years. CREATININE (test code = CREAT) 0.58 mg/dL 0.55-1.02 N TOTAL PROTEIN (test code = PROT) 7.4 g/dL 6.4-8.2 N ALBUMIN (test code = ALB) 3.4 g/dL 3.4-5.0 N GLOBULIN (test code = GLOB) 4.0 g/dL 2.2-4.2 N ALBUMIN/GLOBULIN RATIO (test code = A/G) 0.9 0.7-2.0 N CALCIUM (test code = CA) 9.2 mg/dL 8.5-10.1 N BILIRUBIN TOTAL (test code = BILT) 0.80 mg/dL 0.2-1.00 N SGOT/AST (test code = AST) 57.0 U/L 15-37 H SGPT/ALT (test code = ALT) 56.0 U/L 14-59 N ALKALINE PHOSPHATASE TOTAL (test code = ALKP) 109 U/L 46-116 N C REACTIVE [id number] 14:02:00* Test Item Value Reference Range Interpretation Comme nts C REACTIVE PROTEIN (test code = CRP) 2.54 mg/dL < 0.3 H Please note ne w normal range. CBC W/AUTO [id number] 12:24:00* Test Item Value Reference Range Interpretation Comme nts WHITE BLOOD CELL (test code = WBC) 9.9 K/mm3 5.5-11.0 N Please note new normal range. RED BLOOD CELL (test code = RBC) 4.16 M/mm3 4.2-5.4 L HEMOGLOBIN (test code = HGB) 13.1 g/dL 12-16 N HEMATOCRIT (test code = HCT) 38.9 % 37-47 N MEAN CELL VOLUME (test code = MCV) 94 fL 80-98 N MEAN CELL HGB (test code = MCH) 31.5 pg 27-34 N MEAN CELL HGB CONCENTRATION (test code = MCHC) 33.7 g/dL 30.8-34.1 N RED CELL DISTRIBUTION WIDTH (test code = RDW) 15.9 % 11-16 N PLT (test code = PLT) 335 K/mm3 130-400 N MEAN PLATELET VOLUME (test code = MPV) 9.8 fL 8.9-12.1 N NEUTROPHIL % (test code = NT%) 76.1 % 45-70 H LYMPHOCYTE % (test code = LY%) 17.6 % 20-40 L MONOCYTE % (test code = MO%) 5.5 % 3-10 N EOSINOPHIL % (test code = EO%) 0.0 % 1-5 L BASOPHIL % (test code = BA%) 0.4 % 0.0-1.1 N NEUTROPHIL # (test code = NT#) 7.56 K/mm3 2.00-7.50 H LYMPHOCYTE # (test code = LY#) 1.75 K/mm3 1.50-4.00 N MONOCYTE # (test code = MO#) 0.55 K/mm3 0.2-0.8 N EOSINOPHIL # (test code = EO#) 0.00 K/mm3 0.04-0.4 L BASOPHIL # (test code = BA#) 0.04 K/mm3 0.02-0.10 N MANUAL DIFF REQUIRED (test code = MDIFF) NO MANUAL DIFF NUCLEATED RED BLOOD CELL (test code = NRBC) 0 % 0-0 N PROTHROMBIN [id number] 12:24:00* Test Item Value Reference Range Interpretation Comme nts PROTHROMBIN TIME PATIENT (test code = PTP) 12.2 secs 9.4-12.5 N INTERNATIONAL NORMAL RATIO (test code = INR) 1.09 <2.0 RECOMMENDED THER APEUTIC RANGE FOR ORAL ANTICOAGULANTTREATMENT: CONDITION INRProphylaxis of venous thrombosis in 2.0 - 3.0 high-risk medical or surgical patientsTreatment of venous thrombosis 2.0 - 3.0Prevention of embolism 2.0 - 3.0Prevention of recurrent embolism, or 3.0 - 4.5 patients with mechanical prosthetic intravascular valves IS PATIENT ON ANTICOAGULANTS ? [facility] been notified if Patient is on Heparin Drip? NOTHROMBOPLASTIN TIME [id number] 12:24:00* Test Item Value Reference Range Interpretation Comme nts PTT ACTIVATED (test code = APTT) 33.5 secs 25.1-36.5 N IS PATIENT ON ANTICOAGULANTS ? [facility] been notified if Patient is on Heparin Drip? NOTSH REFLEX TO FREE [id number] 00:00:00* Test Item Value Reference Range Interpretation Comme nts TSH REFLEX TO FREE T4 (test code = 07265-9) >100.000 UIU/ML See_Comment H [Automated messa ge] The system which generated this result transmitted reference range: 0.400-4.100 UIU/ML. The reference range was not used to interpret this result as normal/abnormal. CBC W/AUTO [id number] 00:00:00* Test Item Value Reference Range Interpretation Comme nts NUCLEATED RBCS (test code = 27284-8) 0.0 /100 WBC'S See_Comment [Automated messa ge] The system which generated this result transmitted reference range: 0.0 /100 WBC'S. The reference range was not used to interpret this result as normal/abnormal. ABSOLUTE EOSINOPHILS (test code = 82874-1) 0.00 K/UL See_Comment [Automated messa ge] The system which generated this result transmitted reference range: 0.00-0.50 K/UL. The reference range was not used to interpret this result as normal/abnormal. ABSOLUTE LYMPHOCYTES (test code = 98262-7) 1.46 K/UL See_Comment [Automated messa ge] The system which generated this result transmitted reference range: 1.00-4.00 K/UL. The reference range was not used to interpret this result as normal/abnormal. ABSOLUTE MONOCYTES (test code = 41929-5) 0.71 K/UL See_Comment [Automated messa ge] The system which generated this result transmitted reference range: 0.20-1.00 K/UL. The reference range was not used to interpret this result as normal/abnormal. ABSOLUTE NEUTROPHILS (test code = 78775-0) 6.05 K/UL See_Comment [Automated messa ge] The system which generated this result transmitted reference range: 1.50-7.50 K/UL. The reference range was not used to interpret this result as normal/abnormal. BASOPHILS (test code = 36289-8) 0.6 % EOSINOPHILS (test code = 56232-6) 0.0 % HEMATOCRIT (test code = 05946-7) 37.6 % See_Comment [Automated messa ge] The system which generated this result transmitted reference range: 34.0-45.0 %. The reference range was not used to interpret this result as normal/abnormal. HEMOGLOBIN (test code = 718-7) 12.7 G/DL See_Comment [Automated messa ge] The system which generated this result transmitted reference range: 11.5-15.5 G/DL. The reference range was not used to interpret this result as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
[2023-04-23 11:21] LABS: Absolute Lymphocytes (CBC) 1.1 K/uL (0.7-4.9); Hematocrit 34.3 % (36.0-45.0); Lymphocytes % 11.1 % (15.3-44.8); MCV 79.3 fL (80-100); MPV 7.8 fL (7.6-11.3); Platelets 356 thou/uL (152-406); RBC Red Blood Cell Count 4.32 M/uL (3.86-4.86)
[2023-04-23 11:28] LABS: Specific Gravity 1.015 (1.005-1.030); Urine Bacteria >50 /HPF (<20); Urine Bilirubin NEGATIVE (Negative); Urine Blood 1+ (Negative); Urine Clarity Extremely Turbid (Clear); Urine Color Orange (Yellow); Urine Glucose NEGATIVE (Negative); Urine Mucus 3+ /HPF (None Seen); Urine Protein 2+ (Negative); Urine RBC >50 /HPF (None Seen); Urine Urobilinogen Normal (Normal); Urine WBC Clump Moderate /HPF (None Seen); Urine pH 6.5 (5.0-7.0)
[2023-04-23 11:42] LABS: Albumin 2.6 g/dL (3.4-5.0); Bilirubin Total 0.4 mg/dL (0.2-1.0); Potassium 2.9 mEq/L (3.5-5.1); Protein, Total 8.1 g/dL (6.4-8.2)
--- NOTE | 2023-04-23 12:17 | RAD REPORT ---
EXAM DESCRIPTION: CTAbdomen Pelvis W Contrast - 04/23/2023 12:04 pm CLINICAL HISTORY: ABD PAIN COMPARISON: Abdomen Pelvis W Contrast dated 11/03/2015; Chest Abdomen Pelvis W Cont dated 03/01/2023 TECHNIQUE: CT of the abdomen and pelvis was performed. All CT scans are performed using dose optimization technique as appropriate and may include automated exposure control or mA/KV adjustment according to patient size. FINDINGS: Lower chest: No acute abnormality. Liver: Peripherally enhancing lesion in the right hepatic lobe along the liver capsule is unchanged s david 2015 and presumably a hemangioma. Biliary: Cholelithiasis Stomach: No significant focal abnormality. Duodenum: No significant focal abnormality. Pancreas: No significant abnormality. Spleen: Mild splenomegaly. Adrenal: No suspicious lesions. Kidney/ureter: No hydronephrosis. No renal calculi. Insert kidneys Retroperitoneum: No retroperitoneal adenopathy. Vascular: No aneurysm. Bowel: Rectal wall thickening and stranding. Presacral edema.. Moderate stool in the colon. Mild rect al wall thickening and perirectal edema which is similar to prior. Peritoneum: No ascites or free air. Bladder: Patton catheter in the bladder. Wall thickening enhancement of the bladder noted. There is al so bladder gas which may be from instrumentation. Reproductive: No adnexal masses. Bones: No acute fracture. Remote L3 compression fracture. Sclerosis present at lower sacrum and coccy x underlying the sacral decubitus ulceration. Other: Sacral decubitus wound. 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 Similar bladder wall thickening and hyperenhancement which could refl ect cystitis. No bowel obstruction. Question proctitis but which is similar to prior.
--- NOTE | 2023-04-23 17:24 | ER ---
Nurse's Notes [facility] Name: Young Gates Age: 62 yrs Sex: Female : 1960 Arrival Date: 04/23/2023 Time: 10:51 Bed 14 Private MD: Diagnosis: Diarrhea, unspecified;Hypokalemia;UTI/ Urinary tract infection, site not specified Presentation: 04/23 10:55 Chief complaint: EMS states: diarrhea for a month, abdominal pain in lower right and ko1 left quadrants. Coronavirus screen: At this time, the client does not indicate any symptoms associated with coronavirus-19. Ebola Screen: No symptoms or risks identified at this time. Initial Sepsis Screen: Does the patient meet any 2 criteria? No. Patient's initial sepsis screen is negative. Does the patient have a suspected source of infection? No. Patient's initial sepsis screen is negative. Risk Assessment: Do you want to hurt yourself or someone else? Patient reports no desire to harm self or others. Onset of symptoms is unknown. Care prior to arrival: IV initiated. 18 GA, in the left antecubital area. 10:55 Method Of Arrival: EMS: [facility] ko1 10:55 Acuity: KJ 3 ko1 Triage Assessment: 13:52 General: Appears in no apparent distress. Behavior is calm, cooperative, appropriate ko1 for age. Pain: Complains of pain in suprapubic area. GI: Reports diarrhea. Historical: - Allergies: 13:52 Ampicillin; ko1 13:52 Azithromycin; ko1 13:52 Lisinopril; ko1 13:52 PENICILLINS; ko1 - PMHx: 13:52 Arthritis; Hypertension; Hypothyroidism; ko1 - Immunization history:: Adult Immunizations up to date. - Social history:: Smoking status: Patient denies any tobacco usage or history of. Screenin:00 [facility] ED Fall Risk Assessment (Adult) History of falling in the last 3 months, ko1 including since admission No falls in past 3 months (0 pts) Confusion or Disorientation No (0 pts) Intoxicated or Sedated No (0 pts) Impaired Gait Yes (1 pt) Mobility Assist Device Used Yes (1 pt) Altered Elimination Yes (1 pt) Score/Fall Risk Level 3 or more points = High Risk Oriented to surroundings, Maintained a safe environment, Educated pt \T\ family on fall prevention, incl call for assistance when getting out of bed, Assessed \T\ reinforced patient's understanding of fall precautions, Provided non-skid footwear, Hourly rounding (assess needs \T\ fall precautionary measures) done, Used ambulatory aids as needed (educated on \T\ assisted with), Used gait belt as appropriate Implemented a Fall Risk Plan of Care, Apply high fall risk patient identification: yellow non skid footwear/ fall signage. Abuse screen: Denies threats or abuse. Denies injuries from another. Nutritional screening: No deficits noted. Tuberculosis screening: No symptoms or risk factors identified. Assessment: 11:00 General: Appears in no apparent distress. Behavior is calm, cooperative, appropriate ko1 for age. GI: Reports diarrhea. 19:10 Reassessment: PT HAS BEEN DISCHARGED, BUT WAITING FOR EMS TRANSFER BACK HOME. PT LYING jj7 IN BED. NO PAIN OR DISTRESS. REQUEST FOR CRACKERS AND SODA. PT GIVEN FOOD. PT TOLERATING WELL. NO ADDITIONAL NEEDS AT THIS TIME. 19:46 Reassessment: Pt's cousin called and informed pt will be coming home soon by EMS and [facility] she wanted to make sure someone was home when she arrived. Family states they will be home. 20:30 Reassessment: CHARGE NURSE INFORMED ME EMS STATES THEY WILL BE HERE TO TRANSFER THE PT [facility] NOW AT [phone]. T INFORMED. 21:34 Reassessment: [facility] AT BEDSIDE TO TAKE PT HOME. [facility] Vital Signs: 11:00 BP 110 / 68; Pulse 74; Resp 15; Pulse Ox 98% ; ko1 13:53 BP 99 / 65; Pulse 80; Resp 16; Temp 98; Pulse Ox 98% ; ko1 18:17 BP 94 / 64; Pulse 82; Resp 15; Pulse Ox 98% ; ko1 ED Course: 10:52 Patient arrived in ED. sb4 10:52 Lina Matta PA-C is PHCP. sb4 10:52 Fam Hall MD is Attending Physician. sb4 10:54 Luciana Mason RN is Primary Nurse. ko1 11:00 No provider procedures requiring assistance completed. Maintain EMS IV. Dressing ko1 intact. Good blood return noted. Site clean \T\ dry. Gauge \T\ site: 18g Left AC. 11:00 Patient has correct armband on for positive identification. Allergy band placed. Placed ko1 in gown. Bed in low position. Call light in reach. Side rails up X2. Pulse ox on. NIBP on. Door closed. Noise minimized. Lights dimmed. Warm blanket given. 11:08 Urinalysis w/ reflexes Sent. ko1 11:14 CBC with Diff Sent. ko1 11:14 CMP Sent. ko1 11:14 Lipase Sent. ko1 11:55 Urine Culture Sent. ko1 12:06 CT Abd/Pelvis - IV Contrast Only In Process Unspecified. EDMS 13:52 Triage completed. ko1 13:52 Arm band placed on right wrist. Patient placed in an exam room, on a stretcher, on ko1 quality assurance monitor chassis, on pulse oximetry, Patient notified of wait time. 14:48 CDIFF Sent. ko1 14:48 Fecal Leukocyte Stain Sent. ko1 14:48 Ova And Parasites Sent. ko1 14:48 Rotavirus Antigen Sent. ko1 14:48 Stool Culture Sent. ko1 17:23 Ty Ambrose MD is Referral Physician. sb4 18:16 Awaiting transportation. ko1 18:16 IV discontinued, intact, bleeding controlled, No redness/swelling at site. Pressure ko1 dressing applied. 18:16 Provided Education on: na. ko1 Administered Medications: 11:07 Drug: NS 0.9% IV 1000 ml IV at 1 bolus Per protocol; 1000 mL bolus Route: IV; Rate: 1 ko1 bolus; Site: left antecubital; 18:19 Follow up: Response: No adverse reaction; IV Status: Completed infusion; IV Intake: ko1 1000ml 12:06 Drug: Potassium PO Effervescent Tablet 50 mEq PO once; dissolve in 4 ounces of water or ko1 juice Route: PO; 18:19 Follow up: Response: No adverse reaction ko1 12:06 Drug: Potassium Chloride IV 20 mEq IV at calculated rate once; administer over 1-2 ko1 hours Route: IV; Rate: calculated rate; Site: left antecubital; 18:18 Follow up: Response: No adverse reaction; IV Status: Completed infusion; IV Intake: ko1 100ml 14:04 Drug: Rocephin IV 1 grams IV at calculated rate once; Given slow IV push per pharmacy ko1 instructions Route: IV; Rate: calculated rate; Site: right antecubital; 18:18 Follow up: Response: No adverse reaction; IV Status: Completed infusion; IV Intake: ko1 100ml Medication: 11:00 VIS not applicable for this client. ko1 Intake: 18:17 PO: 120ml (Water); Total: 120ml. ko1 18:18 IV: 100ml; Total: 220ml. ko1 18:18 IV: 100ml; Total: 320ml. ko1 18:19 IV: 1000ml; Total: 1320ml. ko1 18:19 IV: 1300ml (IV Fluid); Total: 2620ml. ko1 Output: 18:17 Urine: 950ml (Patton); Total: 950ml. ko1 Outcome: 17:24 Discharge ordered by MD. stokes 21:54 Discharged to home via ambulance, kerline 21:54 Condition: good 21:54 Discharge instructions given to patient, Instructed on discharge instructions, Demonstrated understanding of instructions, 21:55 Patient left the ED. [email or web address] Signatures: Dispatcher [employer] Luciana Murillo RN RN koRadha Amin RN RN jLina Orozco, PA-C PA-Rhea stokes Corrections: (The following items were deleted from the chart) 14:50 11:00 GI: Reports nausea, vomiting, ko1 ko1
--- NOTE | 2023-04-23 17:24 | EDPHYS ---
Physician Documentation [facility] Name: Young Gates Age: 62 yrs Sex: Female : 1960 Arrival Date: 04/23/2023 Time: 10:51 Bed 14 Private MD: ED Physician Fam Hall HPI: 04/23 10:54 This 62 yrs old Female presents to ER via Unassigned with complaints of diarrhea. sb4 10:54 The patient presents to the emergency department with diarrhea. Onset: The sb4 symptoms/episode began/occurred 1 month(s) ago. 10:57 patient with history of chronic sacral decubitus ulcer with wound vac in place, sb4 functional quadriplegia with indwelling bang catheter presents with explosive diarrhea x 1 month. she was hospitalized here about 1.5 months ago for fecal impaction and sepsis. she was discharged with cipro/flagyl and miralax, later given diflucan. also endorses mild lower abdominal pain. no fever, nausea, vomiting. no blood in stool. Historical: - Allergies: 13:52 Ampicillin; ko1 13:52 Azithromycin; ko1 13:52 Lisinopril; ko1 13:52 PENICILLINS; ko1 - PMHx: 13:52 Arthritis; Hypertension; Hypothyroidism; ko1 - Immunization history:: Adult Immunizations up to date. - Social history:: Smoking status: Patient denies any tobacco usage or history of. ROS: 10:57 Constitutional: Negative for fever, chills, and weight loss, sb4 10:57 Abdomen/GI: Positive for abdominal pain, diarrhea, 10:57 All other systems are negative, Exam: 10:57 Constitutional: This is a well developed, well nourished patient who is awake, alert, sb4 and in no acute distress. Head/Face: Normocephalic, atraumatic. Eyes: Extra-ocular motions intact. Periorbital areas with no swelling, redness, or edema. ENT: Mucous membranes moist. Cardiovascular: Regular rate and rhythm with a normal S1 and S2. Respiratory: Lungs have equal breath sounds bilaterally, clear to auscultation and percussion. No rales, rhonchi or wheezes noted. No increased work of breathing, no retractions or nasal flaring. Skin: Warm, dry with normal turgor. Normal color with no rashes, no lesions, and no evidence of cellulitis. MS/ Extremity: Pulses equal, no cyanosis. Neurovascular intact. Full, normal range of motion. 10:57 Abdomen/GI: Inspection: abdomen appears normal, Bowel sounds: normal, Palpation: soft, mild abdominal tenderness, in the suprapubic area, Vital Signs: 11:00 BP 110 / 68; Pulse 74; Resp 15; Pulse Ox 98% ; ko1 13:53 BP 99 / 65; Pulse 80; Resp 16; Temp 98; Pulse Ox 98% ; ko1 18:17 BP 94 / 64; Pulse 82; Resp 15; Pulse Ox 98% ; ko1 MDM: 10:52 Patient medically screened. sb4 10:57 Differential diagnosis: UTI, cdiff, gastroenteritis. sb4 17:24 Data reviewed: vital signs, nurses notes, lab test result(s), radiologic studies, and sb4 as a result, I will discharge patient. Consideration of Admission/Observation Escalation of care including admission/observation considered. 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 17:32 ED course: patient has had 1 BM throughout her entire ED stay, which was soft, non sb4 diarrheal. lab did not have enough sample for cdiff test however my suspicious for cdiff is low given the nature of the stool. patient feels better, will discharge home with instructions to follow up with GI. 04/23 10:53 Order name: CBC with Diff; Complete Time: 11:25 04/23 10:53 Order name: CMP; Complete Time: 11:44 04/23 10:53 Order name: Lipase; Complete Time: 11:44 04/23 10:53 Order name: Urinalysis w/ reflexes; Complete Time: 11:29 04/23 10:53 Order name: Fecal Leukocyte Stain 04/23 10:53 Order name: Rotavirus Antigen; Complete Time: 16:28 04/23 10:53 Order name: Stool Culture 04/23 11:32 Order name: Urine Culture EDMS 04/23 10:53 Order name: CT Abd/Pelvis - IV Contrast Only; Complete Time: 12:18 sb4 04/23 10:53 Order name: IV Saline Lock; Complete Time: 10:54 sb4 04/23 10:53 Order name: Labs collected and sent; Complete Time: 11:14 sb4 Administered Medications: 11:07 Drug: NS 0.9% IV 1000 ml IV at 1 bolus Per protocol; 1000 mL bolus Route: IV; Rate: 1 ko1 bolus; Site: left antecubital; 18:19 Follow up: Response: No adverse reaction; IV Status: Completed infusion; IV Intake: ko1 1000ml 12:06 Drug: Potassium PO Effervescent Tablet 50 mEq PO once; dissolve in 4 ounces of water or ko1 juice Route: PO; 18:19 Follow up: Response: No adverse reaction ko1 12:06 Drug: Potassium Chloride IV 20 mEq IV at calculated rate once; administer over 1-2 ko1 hours Route: IV; Rate: calculated rate; Site: left antecubital; 18:18 Follow up: Response: No adverse reaction; IV Status: Completed infusion; IV Intake: ko1 100ml 14:04 Drug: Rocephin IV 1 grams IV at calculated rate once; Given slow IV push per pharmacy ko1 instructions Route: IV; Rate: calculated rate; Site: right antecubital; 18:18 Follow up: Response: No adverse reaction; IV Status: Completed infusion; IV Intake: ko1 100ml Disposition Summary: 04/23/23 17:24 Discharge Ordered Notes: Location: Home sb4 Problem: an ongoing problem sb4 Symptoms: have improved sb4 Condition: Stable sb4 Diagnosis - Diarrhea, unspecified sb4 - Hypokalemia sb4 - UTI/ Urinary tract infection, site not specified sb4 Followup: sb4 - With: Ty Ambrose MD - When: As needed - Reason: Further diagnostic work-up, Recheck today's complaints, Re-evaluation by your physician Discharge Instructions: - Discharge Summary Sheet sb4 - Food Choices to Help Relieve Diarrhea, Adult sb4 - Urinary Tract Infection, Adult, [id number] sb4 Forms: - Thank You Letter sb4 - Antibiotic Education sb4 - Patient Portal Instructions sb4 - Leadership Thank You Letter sb4 Prescriptions: - Imodium A-D 2 mg Oral tablet - take 0.5 tablet ORAL route every 4 hours as needed for loose stool; do not sb4 exceed 6 mg per 24 hrs; 30 tablet; Refills: 0, Product Selection Permitted - cefpodoxime 100 mg Oral Tablet - take 1 tablet ORAL route every 12 hours for 10 days take with food; 20 tablet; sb4 Refills: 0, Product Selection Permitted Signatures: Dispatcher [employer] Rebecca Bonds Kathy, RN RN ko1 Lina Matta PA-C PA-C sb4
[2023-04-23 22:15] VITALS: BP 94/64; TEMP 98; O2SAT 98
== END ==
LOC: ER 10:51
DX: R19.7 Diarrhea, unspecified (principal); E87.6 Hypokalemia; N39.0 Urinary tract infection, site not specified; I10 Essential (primary) hypertension; Z88.0 Allergy status to penicillin; Z88.1 Allergy status to other antibiotic agents; Z88.8 Allergy status to other drugs, medicaments and biological substances
CPT/HCPCS: 87088; 87045; 85025; 81001; 87086; 36415; 89055; 87046; 83690; 80053; 87425; 74177; Q9967; J3480; J7030; J0696; 99284

== ENCOUNTER 2023-06-02 06:20 | Inpatient (IN) | payer OTHER ==
--- OUTSIDE RECORDS SUMMARY | 2023-06-02 06:26 | XMS REPORT | Continuity of Care Document ---
Author Name Unknown Address [address] [facility] Jose Alfredo. [address] [place] [address] [facility] thconnect Address [address] [facility]. [address] [place] [address] Care Team Providers Care Sales Development Manager Name Role Phone Nikolay Bhakta Attending Clinician [...] Number Effective Date Expirati on Date Source [facility] MCR Dual Complete (HMO-POS D-SNP) 111 [id number] 2020 00:00:00 [facility] - DUAL ELIGIBLE (MEDICARE REPLACEMENT/ADVAN TAGE - HMO) [id number] 2022 00:00:00 [place] STAR [place]MED[place]ID REPLACEMENT - HMO) [id number] 2018 00:00:00 [facility] - DUAL COMPLETE - DUAL ELIGIBLE - SNP (MEDICARE-MEDICAI D REPLACEMENT HMO) [id number] [facility] - [facility] - [facility] - DUAL COMPLETE FOCUS (MEDICARE REPLACEMENT HMO) [id number] MEDICAID [id number] 2012 00:00:00 [facility] MEDICARE NOVITAS MB [id number] 2010 00:00:00 [facility] [employer]IGR[employer] (Medicaid) [id number] 2018 00:00:00 [facility] Problems Condition Name Condition Details Condition Category [...] 00 [facility] [id number] Seasonal allergic rhinitis due to pollen Problem [facility] [id number] Other closed fracture of proximal end of right tibia, initial encounter Problem [facility] [id number] Other closed fracture of proximal end of right fibula, initial encounter Problem [facility] [id number] Body mass index [BMI] 33.0-33.9, adult Problem [facility] General weakness General weakness Problem [facility] Pain in limb Pain in limb Problem [facility] 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 Problem [facility] Edema Edema leg Problem [facility] [id number] Other closed fracture of distal end of right femur, initial encounter Problem [facility] [id number] Other obesity due to excess calories Problem [facility] Peripheral neuropathy Peripheral neuropathy Problem [facility] Hypertensi on HTN (hypertens ion) Problem [facility] Gastroesop hageal reflux disease GERD (gastroeso phageal reflux disease) Problem [facility] Anemia Anemia Problem [facility] Hypothyroi dism Hypothyroi dism Problem [facility] Rheumatoid arthritis Rheumatoid arthritis Problem [facility] Hyperlipid emia Hyperlipid emia Problem [facility] [id number] +5th digit eff 11/27/19*Ga stroesopha geal reflux disease with esophagiti s Problem [facility] [id number] Neuropathy Problem [facility] [id number] Wheelchair dependence Problem [facility] Knee pain Knee pain Problem [facility] [id number] Chronic seasonal allergic rhinitis Problem [facility] Dependence on wheelchair Uses wheelchair Problem [facility] Acquired genu valgum Valgus deformity, not elsewhere classified , right knee Problem [facility] [id number] Influenza vaccinatio n administer ed at current visit Problem [facility] [id number] Pressure injury of sacral region, stage 4 Problem [facility] [id number] Leukocytos is, unspecifie d type Problem [facility] Allergies, Adverse Reactions, Alerts Allergy Name Allergy Type Status Severity Reaction(s) Onset Date Inactive Date Treating Clinician Comments Source Penicill ins DA Active SV BREAKOUT IN HIVES UNDER THE SKIN 2022-02 0 00:00: 00 [facility] lisinopr il DA Active SV CAUSE ME TO HAVE KIDNEY FAILURE 2022-02 0- 00:00: 00 [facility] iodine DA Active SV THROAT SWELLING UP, DIFFICULTY BREATHING 2022-02 0-23 00:00: 00 [facility] azithrom ycin DA Active SV HIVES 2022-02 0- 00:00: 00 [facility] shellfis h derived FA Active SV THROAT SWELLING UP, DIFFICULTY BREATHING 2022-02 0 00:00: 00 [facility] shrimp FA Active SV THROAT SWELLS, DIFFICULTY BREATHING 2022-02 0 00:00: 00 [facility] crab FA Active SV THROAT SWELLS, DIFFICULTY BREATHING 2022-02 0 00:00: 00 [facility] azithrom ycin DA Active SV HIVES 2022-02 0-13 00:00: 00 [facility] shrimp FA Active SV THROAT SWELLS, DIFFICULTY BREATHING 8-17 00:00: 00 [facility] crab FA Active SV THROAT SWELLS, DIFFICULTY BREATHING 8-17 00:00: 00 [facility] Penicill ins DA Active SV BREAKOUT IN HIVES UNDER THE SKIN 817 00:00: 00 [facility] lisinopr il DA Active SV CAUSE ME TO HAVE KIDNEY FAILURE 8-17 00:00: 00 [facility] iodine DA Active SV THROAT SWELLING UP, DIFFICULTY BREATHING 8-17 00:00: 00 [facility] shellfis h derived FA Active SV THROAT SWELLING UP, DIFFICULTY BREATHING 8-17 00:00: 00 [facility] LISINOPR [place] Allergy to substanc e Active 2013-02 0 00:00: 00 [facility] PENICILL IN Allergy to substanc e Active 2013-02 0 00:00: 00 [facility] [id number] Drug allergy Active Unknown [facility] Amoxicil edwin Allergy to substanc e Active [facility] Ampicill in Allergy to substanc e Active [facility] PENICILL INS Allergy to substanc e Active [facility] SHELLFIS H DERIVED Allergy to substanc e Active [facility] Social History Social Habit Start Date Stop Date Quantity Comments Source History of Tobacco Use [facility] Sex Assigned At [facility] Smoking Status Start Date Stop Date Source [...] 75 MCG Levothyroxi ne Sodium 75 MCG 2021-0 07-06 00:00: 00 No QD Levothyrox ine [...] 75 MCG Levothyroxi ne Sodium 75 MCG 2021-0 - 00:00: 00 No QD Levothyrox ine Sodium 75 MCG Levothyroxi ne Sodium 75 MCG Levothyroxi ne Sodium 75 MCG 2-0 07-06 00:00: 00 No QD Levothyrox ine Sodium 75 MCG Flonase 50 MCG/ACT Flonase 50 MCG/ACT 2-0 - 00:00: 00 No 2{spray _in_eac h_nostr il} QD Flonase 50 MCG/ACT Flonase 50 MCG/ACT Flonase 50 MCG/ACT 2-0 5- 00:00: 00 No 2{spray _in_eac h_nostr il} [...] Flonase 50 MCG/ACT Ranitidine HCl Ranitidine HCl -11 00:00: 00 Yes Na Good 1 capsule [facility] amlodipine 2.5 mg tablet amlodipine 2.5 [...] Crestor Crestor Yes Na Good 1 tablet [facility] Clonidine HCl Clonidine HCl Yes Na Good 1 tablet [facility] Folic Acid XTRA Folic Acid XTRA Yes Na Good 1 tab [facility] Triamterene -HCTZ Triamterene -HCTZ Yes Na Good 1 tablet in the morning [facility] Norvasc Norvasc Yes Na Good 1 tablet [facility] Flonase Flonase Yes Na Good 1 spray in each nostril [facility] Montelukast Sodium Montelukast Sodium Yes Na Good 1 tablet in the evening [facility] Gabapentin Gabapentin Yes Na Good 1 capsule [facility] Levothyroxi ne Sodium Levothyroxi ne Sodium Yes Na Good 1 tablet on an empty stomach in the morning [facility] Vitamin D3 Vitamin D3 Yes Na Good 1 capsule [facility] Clonidine HCl Clonidine HCl Yes Na Good 1 tablet [facility] Methotrexat e Sodium (PF) Methotrexat e Sodium (PF) Yes Na Good INJECT 0.8 ML SUBCUTANEO USLY ONCE EVERY WEEK. [facility] Fluconazole 150 MG Fluconazole 150 MG No [...] MCG/ACT Fluticasone Propionate 50 MCG/ACT No 1{spray _in_ h_nostr il} QD Fluticason e Propionate 50 [...] e_morni ng} QD Triamteren e-HCTZ 37.5-25 MG Fluconazole 150 MG Fluconazole 150 MG [...] cloNIDine HCl 0.2 MG Levothyroxi ne Sodium 75 MCG Levothyroxi ne Sodium 75 MCG No QD Levothyrox ine Sodium 75 MCG Methotrexat e Sodium (PF) 50 MG/2ML Methotrexat e Sodium (PF) 50 MG/2ML No Methotrexa te Sodium (PF) 50 MG/2ML Rosuvastati n Calcium 10 MG Rosuvastati n Calcium 10 MG No Rosuvastat in Calcium 10 MG Norvasc 5 MG Norvasc 5 MG No 1{table t} QD Norvasc 5 MG Fluconazole 150 MG Fluconazole 150 MG No 1{table t} Fluconazol e 150 MG Gabapentin 300 MG Gabapentin 300 MG No 1{capsu le} BID Gabapentin 300 MG metroNIDAZO LE 500 MG metroNIDAZO LE 500 MG No 1{table t} TID metroNIDAZ OLE 500 MG Methotrexat e Sodium 2.5 MG Methotrexat e Sodium 2.5 MG No Methotrexa te Sodium 2.5 MG Fluticasone Propionate 50 MCG/ACT Fluticasone Propionate 50 MCG/ACT No 1{spray _in_eac h_nostr il} QD Fluticason e Propionate 50 MCG/ACT Triamterene -HCTZ 37.5-25 MG Triamterene -HCTZ 37.5-25 MG No 1{table t_in e_morni ng} QD Triamteren e-HCTZ 37.5-25 MG Levothyroxi ne Sodium 50 MCG Levothyroxi ne Sodium 50 MCG No QD Levothyrox ine Sodium 50 MCG Polyethylen e Glycol 3350 17 GM/SCOOP Polyethylen e Glycol 3350 17 GM/SCOOP No QD Polyethyle ne Glycol 3350 17 GM/SCOOP Montelukast Sodium 10 Montelukast Sodium 10 No 1{table t_in e_eveni ng} QD Montelukas t Sodium 10 Ciprofloxac in HCl 500 MG Ciprofloxac in HCl 500 MG No 1{table t} BID Ciprofloxa dena HCl 500 MG cloNIDine HCl 0.2 MG cloNIDine HCl 0.2 MG No 1{table t} QD cloNIDine HCl 0.2 MG Rosuvastati n Calcium 10 MG Rosuvastati n Calcium 10 MG No Rosuvastat in Calcium 10 MG Norvasc 5 MG Norvasc 5 MG No 1{table t} QD Norvasc 5 MG Fluconazole 150 MG Fluconazole 150 MG No 1{table t} Fluconazol e 150 MG Flonase 50 MCG/ACT Flonase 50 MCG/ACT No 1{spray _in_eac h_nostr il} QD Flonase 50 MCG/ACT Gabapentin 300 MG Gabapentin 300 MG No 1{capsu le} BID Gabapentin 300 MG metroNIDAZO LE 500 MG metroNIDAZO LE 500 MG No 1{table t} TID metroNIDAZ OLE 500 MG Methotrexat e Sodium 2.5 MG Methotrexat e Sodium 2.5 MG No Methotrexa te Sodium 2.5 MG Fluticasone Propionate 50 MCG/ACT Fluticasone Propionate 50 MCG/ACT No 1{spray _in_eac h_nostr il} QD Fluticason e Propionate 50 MCG/ACT Triamterene -HCTZ 37.5-25 MG Triamterene -HCTZ 37.5-25 MG No 1{table t_in e_morni ng} QD Triamteren e-HCTZ 37.5-25 MG Levothyroxi ne Sodium 50 MCG Levothyroxi ne Sodium 50 MCG No QD Levothyrox ine Sodium 50 MCG Polyethylen e Glycol 3350 17 GM/SCOOP Polyethylen e Glycol 3350 17 GM/SCOOP No QD Polyethyle ne Glycol 3350 17 GM/SCOOP Montelukast Sodium 10 Montelukast Sodium 10 No 1{table t_in_th e_eveni ng} QD Montelukas t Sodium 10 Ciprofloxac in HCl 500 MG Ciprofloxac in HCl 500 MG No 1{table t} BID Ciprofloxa dena HCl 500 MG cloNIDine HCl 0.2 MG cloNIDine HCl 0.2 MG No 1{table t} QD cloNIDine HCl 0.2 MG Gabapentin 300 MG Gabapentin 300 MG No 1{capsu le} BID Gabapentin 300 MG Rosuvastati n Calcium 10 MG Rosuvastati n Calcium 10 MG No Rosuvastat in Calcium 10 MG Norvasc 5 MG Norvasc 5 MG No 1{table t} QD Norvasc 5 MG Fluconazole 150 MG Fluconazole 150 MG No 1{table t} Fluconazol e 150 MG Folic Acid Xtra - Folic Acid Xtra - No QD Folic Acid Xtra - Gabapentin 300 MG Gabapentin 300 MG No 1{capsu le} BID Gabapentin 300 MG metroNIDAZO LE 500 MG metroNIDAZO LE 500 MG No 1{table t} TID metroNIDAZ OLE 500 MG Methotrexat e Sodium 2.5 MG Methotrexat e Sodium 2.5 MG No Methotrexa te Sodium 2.5 MG Fluticasone Propionate 50 MCG/ACT Fluticasone Propionate 50 MCG/ACT No 1{spray _in_eac h_nostr il} QD Fluticason e Propionate 50 MCG/ACT Triamterene -HCTZ 37.5-25 MG Triamterene -HCTZ 37.5-25 MG No 1{table t_in_th e_morni ng} QD Triamteren e-HCTZ 37.5-25 MG Levothyroxi ne Sodium 50 MCG Levothyroxi ne Sodium 50 MCG No QD Levothyrox ine Sodium 50 MCG Polyethylen e Glycol 3350 17 GM/SCOOP Polyethylen e Glycol 3350 17 GM/SCOOP No QD Polyethyle ne Glycol 3350 17 GM/SCOOP Montelukast Sodium 10 Montelukast Sodium 10 No 1{table t_in_ e_eveni ng} QD Montelukas t Sodium 10 Ciprofloxac in HCl 500 MG Ciprofloxac in HCl 500 MG No 1{table t} BID Ciprofloxa dena HCl 500 MG cloNIDine HCl 0.2 MG cloNIDine HCl [...] No 1{table t} QD Norvasc 5 MG Flonase 50 MCG/ACT Flonase 50 MCG/ACT [...] ine Sodium 50 MCG Montelukast Sodium 10 MG Montelukast Sodium 10 MG No 1{table t_in e_eveni ng} QD Montelukas t Sodium 10 MG Triamterene -HCTZ 37.5-25 MG Triamterene -HCTZ 37.5-25 MG No 1{table t_in e_morni ng} QD Triamteren e-HCTZ 37.5-25 MG Flonase 50 MCG/ACT Flonase 50 MCG/ACT No 1{spray _in_eac h_nostr il} QD Flonase 50 MCG/ACT Methotrexat e Sodium (PF) 50 MG/2ML Methotrexat e Sodium (PF) 50 MG/2ML No Methotrexa te Sodium (PF) 50 MG/2ML Montelukast Sodium 10 Montelukast Sodium 10 No 1{table t_in e_eveni ng} QD Montelukas t Sodium 10 Norvasc 5 MG Norvasc 5 MG No 1{table t} QD Norvasc 5 MG cloNIDine HCl 0.2 MG cloNIDine HCl 0.2 MG No cloNIDine HCl 0.2 MG Levothyroxi ne Sodium 50 MCG Levothyroxi ne Sodium 50 MCG No QD Levothyrox ine Sodium 50 MCG Gabapentin 300 MG Gabapentin 300 MG No [...] Triamteren e-HCTZ 37.5-25 MG cloNIDine HCl 0.2 MG cloNIDine HCl [...] ng} QD Montelukas t Sodium 10 MG Levothyroxi ne Sodium 50 MCG [...] Triamteren e-HCTZ 37.5-25 MG cloNIDine HCl 0.2 MG cloNIDine HCl [...] - No QD Folic Acid Xtra - Crestor 10 MG Crestor 10 MG No 1{table t} QD Crestor 10 MG Flonase 50 MCG/ACT Flonase 50 MCG/ACT No 1{spray _in_eac h_nostr il} QD Flonase 50 MCG/ACT Levothyroxi ne Sodium 50 MCG Levothyroxi ne Sodium 50 MCG No QD Levothyrox ine Sodium 50 MCG Norvasc 5 MG Norvasc 5 MG No 1{table t} QD Norvasc 5 MG Methotrexat e Sodium (PF) 50 MG/2ML Methotrexat e Sodium (PF) 50 MG/2ML No Methotrexa te Sodium (PF) 50 MG/2ML cloNIDine HCl 0.2 MG cloNIDine HCl 0.2 MG No 1{table t} QD cloNIDine HCl 0.2 MG Gabapentin 300 MG Gabapentin 300 MG No 1{capsu le} BID Gabapentin 300 MG Triamterene -HCTZ 37.5-25 MG Triamterene -HCTZ 37.5-25 MG No 1{table t_in_ e_morni ng} QD Triamteren e-HCTZ 37.5-25 MG Montelukast Sodium 10 MG Montelukast Sodium 10 MG No 1{table t_in_ e_eveni ng} QD Montelukas t Sodium 10 MG Folic Acid Xtra - Folic Acid Xtra - No QD Folic Acid Xtra - Crestor 10 MG Crestor 10 MG No 1{table t} QD Crestor 10 MG Flonase 50 MCG/ACT Flonase 50 MCG/ACT No 1{spray _in_eac h_nostr il} QD Flonase 50 MCG/ACT Levothyroxi ne Sodium 50 MCG Levothyroxi ne Sodium 50 MCG No QD Levothyrox ine Sodium 50 MCG Norvasc 5 MG Norvasc 5 MG No 1{table t} QD Norvasc 5 MG Methotrexat e Sodium (PF) 50 MG/2ML Methotrexat e Sodium (PF) 50 MG/2ML No Methotrexa te Sodium (PF) 50 MG/2ML cloNIDine HCl 0.2 MG cloNIDine HCl 0.2 MG No 1{table t} QD cloNIDine HCl 0.2 MG Gabapentin 300 MG Gabapentin 300 MG No 1{capsu le} BID Gabapentin 300 MG Triamterene -HCTZ 37.5-25 MG Triamterene -HCTZ 37.5-25 MG No 1{table t_in_th e_morni ng} QD Triamteren e-HCTZ 37.5-25 MG Montelukast Sodium 10 MG Montelukast Sodium [...] 00:00 :00 No Na Good 1 tablet [facility] Immunizations Ordered Immunization Name Filled Immunization Name Date Status Comments Source Flucelvax - single dose syringe Flucelvax - single dose syringe 2022-01-31 15:24:00 Completed [facility] Flucelvax - single dose syringe Flucelvax - single dose syringe 2022-01-31 15:24:00 Completed [facility] Moderna COVID-19 Vaccine Moderna COVID-19 Vaccine 2020-09-03 11:38:00 Completed [facility] Moderna COVID-19 Vaccine Moderna COVID-19 Vaccine 2020-09-03 11:38:00 Completed [facility] Moderna COVID-19 Vaccine Moderna COVID-19 Vaccine 2020-09-03 11:38:00 Completed [facility] Moderna COVID-19 Vaccine Moderna COVID-19 Vaccine 2020-09-03 11:38:00 Completed [facility] Moderna COVID-19 Vaccine Moderna COVID-19 Vaccine 2020-09-03 11:38:00 Completed [facility] Moderna COVID-19 Vaccine Moderna COVID-19 Vaccine 2020-09-03 11:38:00 Completed [facility] Moderna COVID-19 Vaccine Moderna COVID-19 Vaccine 2020-09-03 11:38:00 Completed [facility] Moderna COVID-19 Vaccine Moderna COVID-19 Vaccine 2020-09-03 11:38:00 Completed [facility] Moderna COVID-19 Vaccine Moderna COVID-19 Vaccine 2020-09-03 11:38:00 Completed [facility] Moderna COVID-19 Vaccine Moderna COVID-19 Vaccine 2020-09-03 11:38:00 Completed [facility] Moderna COVID-19 Vaccine Moderna COVID-19 Vaccine 2020-09-03 11:38:00 Completed [facility] Moderna COVID-19 Vaccine Moderna COVID-19 Vaccine 2020-09-03 11:38:00 Completed [facility] Moderna COVID-19 Vaccine Moderna COVID-19 Vaccine 2020-09-03 11:38:00 Completed [facility] Moderna COVID-19 Vaccine Moderna COVID-19 Vaccine 2020-09-03 11:38:00 Completed [facility] Moderna COVID-19 Vaccine Moderna COVID-19 Vaccine 2020-09-03 11:38:00 Completed [facility] Moderna COVID-19 Vaccine Moderna COVID-19 Vaccine 2020-09-03 11:38:00 Completed [facility] Afluria Afluria 2020-01-29 10:05:00 Completed [facility] Afluria Afluria 2020-01-29 10:05:00 Completed [facility] Afluria Afluria 2020-01-29 10:05:00 Completed [facility] Afluria Afluria 2020-01-29 10:05:00 Completed [facility] Afluria Afluria 2020-01-29 10:05:00 Completed [facility] Afluria Afluria 2020-01-29 10:05:00 Completed [facility] Afluria Afluria 2020-01-29 10:05:00 Completed [facility] Afluria Afluria 2020-01-29 10:05:00 Completed [facility] Afluria Afluria 2020-01-29 10:05:00 Completed [facility] Afluria Afluria 2020-01-29 10:05:00 Completed [facility] Afluria Afluria 2020-01-29 10:05:00 Completed [facility] Afluria Afluria 2020-01-29 10:05:00 Completed [facility] Afluria Afluria 2020-01-29 10:05:00 Completed [facility] Afluria Afluria 2020-01-29 10:05:00 Completed [facility] Afluria Afluria 2020-01-29 10:05:00 Completed [facility] Afluria Afluria 2020-01-29 10:05:00 Completed [facility] Flu FluAD 2018-11-08 09:31:00 Completed [facility] Flu FluAD 2018-11-08 09:31:00 Completed [facility] Flu Flu 2018-11-08 09:31:00 Completed [facility] Flu FluAD 2018-11-08 09:31:00 Completed [facility] Flu FluAD 2018-11-08 09:31:00 Completed [facility] Flu FluAD 2018-11-08 09:31:00 Completed [facility] Flu FluAD 2018-11-08 09:31:00 Completed [facility] Flu FluAD 2018-11-08 09:31:00 Completed [facility] Flu FluAD 2018-11-08 09:31:00 Completed [facility] FluAD FluAD 2018-11-08 09:31:00 Completed [facility] FluAD FluAD 2018-11-08 09:31:00 Completed [facility] FluAD FluAD 2018-11-08 09:31:00 Completed [facility] FluAD FluAD 2018-11-08 09:31:00 Completed [facility] Flu FluAD 2018-11-08 09:31:00 Completed [facility] FluAD FluAD 2018-11-08 09:31:00 Completed [facility] FluAD FluAD 2018-11-08 09:31:00 Completed [facility] FluAD FluAD 2018-11-08 00:00:00 Completed [facility] FLUZONE HIGH DOSE OVER 65 FLUZONE HIGH DOSE OVER 65 2017-10-31 12:06:00 Completed [facility] FLUZONE HIGH DOSE OVER 65 FLUZONE HIGH DOSE OVER 65 2017-10-31 12:06:00 Completed [facility] FLUZONE HIGH DOSE OVER 65 FLUZONE HIGH DOSE OVER 65 2017-10-31 12:06:00 Completed [facility] FLUZONE HIGH DOSE OVER 65 FLUZONE HIGH DOSE OVER 65 2017-10-31 12:06:00 Completed [facility] FLUZONE HIGH DOSE OVER 65 FLUZONE HIGH DOSE OVER 65 2017-10-31 12:06:00 Completed [facility] FLUZONE HIGH DOSE OVER 65 FLUZONE HIGH DOSE OVER 65 2017-10-31 12:06:00 Completed [facility] FLUZONE HIGH DOSE OVER 65 FLUZONE HIGH DOSE OVER 65 2017-10-31 12:06:00 Completed [facility] FLUZONE HIGH DOSE OVER 65 FLUZONE HIGH DOSE OVER 65 2017-10-31 12:06:00 Completed [facility] FLUZONE HIGH DOSE OVER 65 FLUZONE HIGH DOSE OVER 65 2017-10-31 12:06:00 Completed [facility] FLUZONE HIGH DOSE OVER 65 FLUZONE HIGH DOSE OVER 65 2017-10-31 12:06:00 Completed [facility] FLUZONE HIGH DOSE OVER 65 FLUZONE HIGH DOSE OVER 65 2017-10-31 12:06:00 Completed [facility] FLUZONE HIGH DOSE OVER 65 FLUZONE HIGH DOSE OVER 65 2017-10-31 12:06:00 Completed [facility] FLUZONE HIGH DOSE OVER 65 FLUZONE HIGH DOSE OVER 65 2017-10-31 12:06:00 Completed [facility] FLUZONE HIGH DOSE OVER 65 FLUZONE HIGH DOSE OVER 65 2017-10-31 12:06:00 Completed [facility] FLUZONE HIGH DOSE OVER 65 FLUZONE HIGH DOSE OVER 65 2017-10-31 12:06:00 Completed [facility] FLUZONE HIGH DOSE OVER 65 FLUZONE HIGH DOSE OVER 65 2017-10-31 12:06:00 Completed [facility] Prevnar 20 (PCV20) Prevnar 20 (PCV20) Unknown Completed [facility] Moderna COVID-19 Vaccine Moderna COVID-19 Vaccine Unknown Completed [facility] Fluarix (IIV4) - SDS - 0.5mL Fluarix (IIV4) - SDS - 0.5mL Unknown Completed [facility] FluAD FluAD Unknown Completed [facility] Afluria Afluria Unknown Completed [facility] Flucelvax (ccIIV4) - SDS - 0.5mL Flucelvax (ccIIV4) - SDS - 0.5mL Unknown Completed [facility] FLUZONE HIGH DOSE OVER 65 FLUZONE HIGH DOSE OVER 65 Unknown Completed [facility] Prevnar 20 (PCV20) Prevnar 20 (PCV20) Unknown Completed [facility] Moderna COVID-19 Vaccine Moderna COVID-19 Vaccine Unknown Completed [facility] Fluarix (IIV4) - SDS - 0.5mL Fluarix (IIV4) - SDS - 0.5mL Unknown Completed [facility] FluAD FluAD Unknown Completed [facility] Afluria Afluria Unknown Completed [facility] Flucelvax (ccIIV4) - SDS - 0.5mL Flucelvax (ccIIV4) - SDS - 0.5mL Unknown Completed [facility] FLUZONE HIGH DOSE OVER 65 FLUZONE HIGH DOSE OVER 65 Unknown Completed [facility] Prevnar 20 (PCV20) Prevnar 20 (PCV20) Unknown Completed [facility] Moderna COVID-19 Vaccine Moderna COVID-19 Vaccine Unknown Completed [facility] Fluarix (IIV4) - SDS - 0.5mL Fluarix (IIV4) - SDS - 0.5mL Unknown Completed [facility] FluAD FluAD Unknown Completed [facility] [facility] Unknown Completed [facility] Flucelvax (ccIIV4) - SDS - 0.5mL Flucelvax (ccIIV4) - SDS - 0.5mL Unknown Completed [facility] FLUZONE HIGH DOSE OVER 65 FLUZONE HIGH DOSE OVER 65 Unknown Completed [facility] Prevnar 20 (PCV20) Prevnar 20 (PCV20) Unknown [facility] Moderna COVID-19 Vaccine Unknown Completed [facility] Fluarix (IIV4) - SDS - 0.5mL Fluarix (IIV4) - SDS - 0.5mL Unknown Completed [facility] FluAD FluAD Unknown Completed [facility] Afluria Afluria Unknown Completed [facility] Flucelvax (ccIIV4) - SDS - 0.5mL Flucelvax (ccIIV4) - SDS - 0.5mL Unknown Completed [facility] FLUZONE HIGH DOSE OVER 65 FLUZONE HIGH DOSE OVER 65 Unknown Completed [facility] Prevnar 20 (PCV20) Prevnar 20 (PCV20) Unknown Completed [facility] Moderna COVID-19 Vaccine Moderna COVID-19 Vaccine Unknown Completed [facility] Fluarix (IIV4) - SDS - 0.5mL Fluarix (IIV4) - SDS - 0.5mL Unknown Completed [facility] FluAD FluAD Unknown Completed [facility] Afluria Afluria Unknown Completed [facility] Flucelvax (ccIIV4) - SDS - 0.5mL Flucelvax (ccIIV4) - SDS - 0.5mL Unknown Completed [facility] FLUZONE HIGH DOSE OVER 65 FLUZONE HIGH DOSE OVER 65 Unknown Completed [facility] Prevnar 20 (PCV20) Prevnar 20 (PCV20) Unknown Completed [facility] Moderna COVID-19 Vaccine Moderna COVID-19 Vaccine Unknown Completed [facility] Fluarix (IIV4) - SDS - 0.5mL Fluarix (IIV4) - SDS - 0.5mL Unknown Completed [facility] FluAD FluAD Unknown Completed [facility] Afluria Afluria Unknown Completed [facility] Flucelvax (ccIIV4) - SDS - 0.5mL Flucelvax (ccIIV4) - SDS - 0.5mL Unknown Completed [facility] FLUZONE HIGH DOSE OVER 65 FLUZONE HIGH DOSE OVER 65 Unknown Completed [facility] Prevnar 20 (PCV20) Prevnar 20 (PCV20) Unknown Completed [facility] Moderna COVID-19 Vaccine Moderna COVID-19 Vaccine Unknown Completed [facility] Fluarix (IIV4) - SDS - 0.5mL Fluarix (IIV4) - SDS - 0.5mL Unknown Completed [facility] FluAD FluAD Unknown Completed [facility] Afluria Afluria Unknown Completed [facility] Flucelvax (ccIIV4) - SDS - 0.5mL Flucelvax (ccIIV4) - SDS - 0.5mL Unknown Completed [facility] FLUZONE HIGH DOSE OVER 65 FLUZONE HIGH DOSE OVER 65 Unknown Completed [facility] Prevnar 20 (PCV20) Prevnar 20 (PCV20) Unknown Completed [facility] Moderna COVID-19 Vaccine Moderna COVID-19 Vaccine Unknown Completed [facility] Fluarix Fluarix Unknown Completed [facility] FluAD FluAD Unknown Completed [facility] Afluria Afluria Unknown Completed [facility] Flucelvax - single dose syringe Flucelvax - single dose syringe Unknown Completed [facility] FLUZONE HIGH DOSE OVER 65 FLUZONE HIGH DOSE OVER 65 Unknown Completed [facility] Prevnar 20 (PCV20) Prevnar 20 (PCV20) Unknown Completed [facility] Moderna COVID-19 Vaccine Moderna COVID-19 Vaccine Unknown Completed [facility] Fluarix Fluarix Unknown Completed [facility] FluAD FluAD Unknown Completed [facility] Afluria Afluria Unknown Completed [facility] Flucelvax - single dose syringe Flucelvax - single dose syringe Unknown Completed [facility] FLUZONE HIGH DOSE OVER 65 FLUZONE HIGH DOSE OVER 65 Unknown Completed [facility] Prevnar 20 (PCV20) Prevnar 20 (PCV20) Unknown Completed [facility] Moderna COVID-19 Vaccine Moderna COVID-19 Vaccine Unknown Completed [facility] Fluarix Fluarix Unknown Completed [facility] FluAD FluAD Unknown Completed [facility] Afluria Afluria Unknown Completed [facility] Flucelvax - single dose syringe Flucelvax - single dose syringe Unknown Completed [facility] FLUZONE HIGH DOSE OVER 65 FLUZONE HIGH DOSE OVER 65 Unknown Completed [facility] Prevnar 20 (PCV20) Prevnar 20 (PCV20) Unknown Completed [facility] Moderna COVID-19 Vaccine Moderna COVID-19 Vaccine Unknown Completed [facility] Fluarix (IIV4) - SDS - 0.5mL Fluarix (IIV4) - SDS - 0.5mL Unknown Completed [facility] FluAD FluAD Unknown Completed [facility] Afluria Afluria Unknown Completed [facility] Flucelvax (ccIIV4) - SDS - 0.5mL Flucelvax (ccIIV4) - SDS - 0.5mL Unknown Completed [facility] FLUZONE HIGH DOSE OVER 65 FLUZONE HIGH DOSE OVER 65 Unknown Completed [facility] Prevnar 20 (PCV20) Prevnar 20 (PCV20) Unknown Completed [facility] Moderna COVID-19 Vaccine Moderna COVID-19 Vaccine Unknown Completed [facility] Fluarix (IIV4) - SDS - 0.5mL Fluarix (IIV4) - SDS - 0.5mL Unknown Completed [facility] FluAD FluAD Unknown Completed [facility] Afluria Afluria Unknown Completed [facility] Flucelvax (ccIIV4) - SDS - 0.5mL Flucelvax (ccIIV4) - SDS - 0.5mL Unknown Completed [facility] FLUZONE HIGH DOSE OVER 65 FLUZONE HIGH DOSE OVER 65 Unknown Completed [facility] Prevnar 20 (PCV20) Prevnar 20 (PCV20) Unknown Completed [facility] Moderna COVID-19 Vaccine Moderna COVID-19 Vaccine Unknown Completed [facility] Fluarix (IIV4) - SDS - 0.5mL Fluarix (IIV4) - SDS - 0.5mL Unknown Completed [facility] FluAD FluAD Unknown Completed [facility] Afluria Afluria Unknown Completed [facility] Flucelvax (ccIIV4) - SDS - 0.5mL Flucelvax (ccIIV4) - SDS - 0.5mL Unknown Completed [facility] FLUZONE HIGH DOSE OVER 65 FLUZONE HIGH DOSE OVER 65 Unknown Completed [facility] Prevnar 20 (PCV20) Prevnar 20 (PCV20) Unknown Completed [facility] Moderna COVID-19 Vaccine Moderna COVID-19 Vaccine Unknown Completed [facility] Fluarix (IIV4) - SDS - 0.5mL Fluarix (IIV4) - SDS - 0.5mL Unknown Completed [facility] FluAD FluAD Unknown Completed [facility] Afluria Afluria Unknown Completed [facility] Flucelvax (ccIIV4) - SDS - 0.5mL Flucelvax (ccIIV4) - SDS - 0.5mL Unknown Completed [facility] FLUZONE HIGH DOSE OVER 65 FLUZONE HIGH DOSE OVER 65 Unknown Completed [facility] Prevnar 20 (PCV20) Prevnar 20 (PCV20) Unknown Completed [facility] Moderna COVID-19 Vaccine Moderna COVID-19 Vaccine Unknown Completed [facility] Fluarix (IIV4) - SDS - 0.5mL Fluarix (IIV4) - SDS - 0.5mL Unknown Completed [facility] FluAD FluAD Unknown Completed [facility] Afluria Afluria Unknown Completed [facility] Flucelvax (ccIIV4) - SDS - 0.5mL Flucelvax (ccIIV4) - SDS - 0.5mL Unknown Completed [facility] FLUZONE HIGH DOSE OVER 65 FLUZONE HIGH DOSE OVER 65 Unknown Completed [facility] Prevnar 20 (PCV20) Prevnar 20 (PCV20) Unknown Completed [facility] Moderna COVID-19 Vaccine Moderna COVID-19 Vaccine Unknown Completed [facility] Fluarix (IIV4) - SDS - 0.5mL Fluarix (IIV4) - SDS - 0.5mL Unknown Completed [facility] FluAD FluAD Unknown Completed [facility] Afluria Afluria Unknown Completed [facility] Flucelvax (ccIIV4) - SDS - 0.5mL Flucelvax (ccIIV4) - SDS - 0.5mL Unknown Completed [facility] FLUZONE HIGH DOSE OVER 65 FLUZONE HIGH DOSE OVER 65 Unknown Completed [facility] Prevnar 20 (PCV20) Prevnar 20 (PCV20) Unknown Completed [facility] Moderna COVID-19 Vaccine Moderna COVID-19 Vaccine Unknown Completed [facility] Fluarix (IIV4) - SDS - 0.5mL Fluarix (IIV4) - SDS - 0.5mL Unknown Completed [facility] FluAD FluAD Unknown Completed [facility] Afluria Afluria Unknown Completed [facility] Flucelvax (ccIIV4) - SDS - 0.5mL Flucelvax (ccIIV4) - SDS - 0.5mL Unknown Completed [facility] FLUZONE HIGH DOSE OVER 65 FLUZONE HIGH DOSE OVER 65 Unknown Completed [facility] Prevnar 20 (PCV20) Prevnar 20 (PCV20) Unknown Completed [facility] Moderna COVID-19 Vaccine Moderna COVID-19 Vaccine Unknown Completed [facility] Fluarix (IIV4) - SDS - 0.5mL Fluarix (IIV4) - SDS - 0.5mL Unknown Completed [facility] FluAD FluAD Unknown Completed [facility] Afluria Afluria Unknown Completed [facility] Flucelvax (ccIIV4) - SDS - 0.5mL Flucelvax (ccIIV4) - SDS - 0.5mL Unknown Completed [facility] FLUZONE HIGH DOSE OVER 65 FLUZONE HIGH DOSE OVER 65 Unknown Completed [facility] Prevnar 20 (PCV20) Prevnar 20 (PCV20) Unknown Completed [facility] Moderna COVID-19 Vaccine Moderna COVID-19 Vaccine Unknown Completed [facility] Fluarix (IIV4) - SDS - 0.5mL Fluarix (IIV4) - SDS - 0.5mL Unknown Completed [facility] FluAD FluAD Unknown Completed [facility] Afluria Afluria Unknown Completed [facility] Flucelvax (ccIIV4) - SDS - 0.5mL Flucelvax (ccIIV4) - SDS - 0.5mL Unknown Completed [facility] FLUZONE HIGH DOSE OVER 65 FLUZONE HIGH DOSE OVER 65 Unknown Completed [facility] Prevnar 20 (PCV20) Prevnar 20 (PCV20) Unknown Completed [facility] Moderna COVID-19 Vaccine Moderna COVID-19 Vaccine Unknown Completed [facility] Fluarix (IIV4) - SDS - 0.5mL Fluarix (IIV4) - SDS - 0.5mL Unknown Completed [facility] FluAD FluAD Unknown Completed [facility] Afluria Afluria Unknown Completed [facility] Flucelvax (ccIIV4) - SDS - 0.5mL Flucelvax (ccIIV4) - SDS - 0.5mL Unknown Completed [facility] FLUZONE HIGH DOSE OVER 65 FLUZONE HIGH DOSE OVER 65 Unknown Completed [facility] Prevnar 20 (PCV20) Prevnar 20 (PCV20) Unknown Completed [facility] Moderna COVID-19 Vaccine Moderna COVID-19 Vaccine Unknown Completed [facility] Fluarix (IIV4) - SDS - 0.5mL Fluarix (IIV4) - SDS - 0.5mL Unknown Completed [facility] FluAD FluAD Unknown Completed [facility] Afluria Afluria Unknown Completed [facility] Flucelvax (ccIIV4) - SDS - 0.5mL Flucelvax (ccIIV4) - SDS - 0.5mL Unknown Completed [facility] FLUZONE HIGH DOSE OVER 65 FLUZONE HIGH DOSE OVER 65 Unknown Completed [facility] Prevnar 20 (PCV20) Prevnar 20 (PCV20) Unknown Completed [facility] Moderna COVID-19 Vaccine Moderna COVID-19 Vaccine Unknown Completed [facility] Fluarix (IIV4) - SDS - 0.5mL Fluarix (IIV4) - SDS - 0.5mL Unknown Completed [facility] FluAD FluAD Unknown Completed [facility] Afluria Afluria Unknown Completed [facility] Flucelvax (ccIIV4) - SDS - 0.5mL Flucelvax (ccIIV4) - SDS - 0.5mL Unknown Completed [facility] FLUZONE HIGH DOSE OVER 65 FLUZONE HIGH DOSE OVER 65 Unknown Completed [facility] Prevnar 20 (PCV20) Prevnar 20 (PCV20) Unknown Completed [facility] Moderna COVID-19 Vaccine Moderna COVID-19 Vaccine Unknown Completed [facility] Fluarix (IIV4) - SDS - 0.5mL Fluarix (IIV4) - SDS - 0.5mL Unknown Completed [facility] FluAD FluAD Unknown Completed [facility] Afluria Afluria Unknown Completed [facility] Flucelvax (ccIIV4) - SDS - 0.5mL Flucelvax (ccIIV4) - SDS - 0.5mL Unknown Completed [facility] FLUZONE HIGH DOSE OVER 65 FLUZONE HIGH DOSE OVER 65 Unknown Completed [facility] Prevnar 20 (PCV20) Prevnar 20 (PCV20) Unknown Completed [facility] Moderna COVID-19 Vaccine Moderna COVID-19 Vaccine Unknown Completed [facility] Fluarix (IIV4) - SDS - 0.5mL Fluarix (IIV4) - SDS - 0.5mL Unknown Completed [facility] FluAD FluAD Unknown Completed [facility] Afluria Afluria Unknown Completed [facility] Flucelvax (ccIIV4) - SDS - 0.5mL Flucelvax (ccIIV4) - SDS - 0.5mL Unknown Completed [facility] FLUZONE HIGH DOSE OVER 65 FLUZONE HIGH DOSE OVER 65 Unknown Completed [facility] Vital Signs Vital Name Observation Time Observation Value Comments [facility] height 2023-05-17 08:50:00 68 [in_i] Commo n [facility] weight 2023-05-17 08:50:00 220.0 [lb_av] Co [facility] temperature 2023-05-17 08:50:00 97.4 [degF] Com [facility] bmi 2023-05-17 08:50:00 33.45 kg/m2 Comm on [facility] oximetry 2023-05-17 08:50:00 99 % Commo n [facility] respiratory rate 2023-05-17 08:50:00 17 /min [facility] blood pressure systolic 2023-05-17 08:50:00 126 mm[Hg] [facility] blood pressure diastolic 2023-05-17 08:50:00 69 mm[Hg] [facility] height 2023-05-17 08:50:00 68 [in_i] Commo n [facility] weight 2023-05-17 08:50:00 [facility] 08:50:00 97.4 [degF] Com [facility] bmi 2023-05-17 08:50:00 33.45 kg/m2 Comm on [facility] oximetry 2023-05-17 08:50:00 99 % Commo n [facility] respiratory rate 2023-05-17 08:50:00 17 /min [facility] blood pressure systolic 2023-05-17 08:50:00 126 mm[Hg] [facility] blood pressure diastolic 2023-05-17 08:50:00 69 mm[facility]Hg[facility] height 2023-04-02 08:00:00 68 [in_i] Commo n [facility] weight 2023-04-02 08:00:00 220 [lb_av] Comm on [facility] bmi 2023-04-02 08:00:00 33.45 kg/m2 Comm on [facility] Body Weight 2023-03-20 00:00:00 167 [lb_av] [facility] Height 2023-03-20 00:00:00 68 [in_i] [facility] BMI (Body Mass Index) 2023-03-20 00:00:00 25.4 kg/m2 [facility] height 2023-03-09 09:00:00 68 [in_i] Commo n [facility] weight 2023-03-09 09:00:00 221 [lb_av] Comm on [facility] bmi 2023-03-09 09:00:00 33.6 kg/m2 Commo n [facility] height 2022-11-21 09:20:00 68 [in_i] Commo n [facility] weight 2022-11-21 09:20:00 221.0 [lb_av] Co mmon [facility] temperature 2022-11-21 09:20:00 97.4 [degF] Com mon [facility] bmi 2022-11-21 09:20:00 33.6 kg/m2 Commo n [facility] oximetry 2022-11-21 09:20:00 99 % Commo n [facility] respiratory rate 2022-11-21 09:20:00 18 /min [facility] blood pressure systolic 2022-11-21 09:20:00 130 mm[Hg] [facility] blood pressure diastolic 2022-11-21 09:20:00 72 mm[Hg] [facility] height 2022-11-09 09:00:00 68 [in_i] Commo n [facility] weight 2022-11-09 09:00:00 221 [lb_av] Comm on [facility] temperature 2022-11-09 09:00:00 98.4 [degF] Com mon [facility] bmi 2022-11-09 09:00:00 33.6 kg/m2 Commo n [facility] blood pressure systolic 2022-11-09 09:00:00 130 mm[Hg] [facility] blood pressure diastolic 2022-11-09 09:00:00 74 mm[Hg] [facility] height 2022-11-07 13:20:00 68 [in_i] Commo n [facility] weight 2022-11-07 13:20:00 220 [lb_av] Comm on [facility] temperature 2022-11-07 13:20:00 98.3 [degF] Com mon [facility] bmi 2022-11-07 13:20:00 33.45 kg/m2 Comm on [facility] oximetry 2022-11-07 13:20:00 99 % Commo n [facility] respiratory rate 2022-11-07 13:20:00 16 /min [facility] blood pressure systolic 2022-11-07 13:20:00 126 mm[Hg] [facility] blood pressure diastolic 2022-11-07 13:20:00 78 mm[Hg] [facility] height 2022-10-09 09:20:00 68 [in_i] Commo n [facility] weight 2022-10-09 09:20:00 220 [lb_av] Comm on [facility] temperature 2022-10-09 09:20:00 97.0 [degF] Com mon [facility] bmi 2022-10-09 09:20:00 33.45 kg/m2 Comm on [facility] oximetry 2022-10-09 09:20:00 97 % Commo n [facility] respiratory rate 2022-10-09 09:20:00 17 /min [facility] blood pressure systolic 2022-10-09 09:20:00 117 mm[Hg] [facility] blood pressure diastolic 2022-10-09 09:20:00 72 mm[Hg] [facility] height 2022-08-21 13:30:00 68 [in_i] Commo n [facility] weight 2022-08-21 13:30:00 220 [lb_av] Comm on [facility] temperature 2022-08-21 13:30:00 97.3 [degF] Com [facility] bmi 2022-08-21 13:30:00 33.45 kg/m2 Comm on [facility] oximetry 2022-08-21 13:30:00 99 % Commo n [facility] respiratory rate 2022-08-21 13:30:00 17 /min [facility] blood pressure systolic 2022-08-21 13:30:00 137 mm[Hg] [facility] blood pressure diastolic 2022-08-21 13:30:00 73 mm[Hg] [facility] height 2022-08-21 13:00:00 68 [in_i] Commo n [facility] weight 2022-08-21 13:00:00 220 [lb_av] Comm on [facility] temperature 2022-08-21 13:00:00 97.3 [degF] Com [facility] bmi 2022-08-21 13:00:00 33.45 kg/m2 Comm on [facility] oximetry 2022-08-21 13:00:00 99 % Commo n [facility] respiratory rate 2022-08-21 13:00:00 17 /min [facility] blood pressure systolic 2022-08-21 13:00:00 137 mm[Hg] [facility] blood pressure diastolic 2022-08-21 13:00:00 73 mm[Hg] [facility] height 2021-12-12 08:20:00 68 [in_i] Commo n [facility] weight 2021-12-12 08:20:00 220 [lb_av] Comm on [facility] bmi 2021-12-12 08:20:00 33.45 kg/m2 Comm on [facility] Height 2021-12-12 00:00:00 68 [in_i] [facility] BMI (Body Mass Index) 2021-12-12 00:00:00 33.5 kg/m2 [facility] Body Weight 2021-12-12 00:00:00 220 [lb_av] [facility] height 2021-09-28 08:00:00 68 [in_i] Commo n [facility] weight 2021-09-28 08:00:00 220 [lb_av] Comm on [facility] temperature 2021-09-28 08:00:00 99.1 [degF] Com mon [facility] bmi 2021-09-28 08:00:00 33.45 kg/m2 Comm on [facility] blood pressure systolic 2021-09-28 08:00:00 125 mm[Hg] [facility] blood pressure diastolic 2021-09-28 08:00:00 70 mm[Hg] [facility] height 2021-08-15 09:30:00 68 [in_i] Commo n [facility] weight 2021-08-15 09:30:00 195 [lb_av] Comm on [facility] bmi 2021-08-15 09:30:00 29.65 kg/m2 Comm on [facility] blood pressure systolic 2021-08-15 09:30:00 112 mm[Hg] [facility] blood pressure diastolic 2021-08-15 09:30:00 79 mm[Hg] [facility] height 2021-07-18 08:30:00 68 [in_i] Commo n [facility] weight 2021-07-18 08:30:00 195 [lb_av] Comm on [facility] temperature 2021-07-18 08:30:00 97.7 [degF] Com mon [facility] bmi 2021-07-18 08:30:00 29.65 kg/m2 Comm on [facility] blood pressure systolic 2021-07-18 08:30:00 130 mm[Hg] [facility] blood pressure diastolic 2021-07-18 08:30:00 72 mm[Hg] [facility] height 2021-06-30 10:15:00 68 [in_i] Commo n [facility] weight 2021-06-30 10:15:00 195 [lb_av] Comm on [facility] bmi 2021-06-30 10:15:00 29.65 kg/m2 Comm on [facility] blood pressure systolic 2021-06-30 10:15:00 130 mm[Hg] [facility] blood pressure diastolic 2021-06-30 10:15:00 72 mm[Hg] [facility] height 2021-03-11 08:00:00 68 [in_i] Commo n [facility] weight 2021-03-11 08:00:00 200 [lb_av] Comm on [facility] temperature 2021-03-11 08:00:00 97.8 [degF] Com mon [facility] bmi 2021-03-11 08:00:00 30.41 kg/m2 Comm on [facility] Procedures Procedure Date / Time Performed Performing Clinician Source XR, knee, 1 or 2 view 2023-03-20 00:00:00 [facility] [id number] 2022-12-20 00:00:00 [facility] [id number] 2022-12-20 00:00:00 [facility] [id number] 2022-12-20 00:00:00 [facility] [id number] 2022-12-18 00:00:00 [facility] [id number] 2022-12-18 00:00:00 [facility] [id number] 2022-12-18 00:00:00 [facility] XR, knee, 4 or more view 2021-12-12 00:00:00 [facility] Plan of Care Planned Activity Planned Date Details Comments Source Future Appointment 2023-06-19 10:00:00 Ian Monzon, [address] [place] [address] [facility] Encounters Start Date/Time End Date/Time Encounter Type Admission Type Attending Clinicians Care Facility Care Department Encounter ID Source 2023-05-16 08:42:00 Outpatient Bhakta, [facility] [id number] [facility] 2023-05-15 08:08:00 Outpatient Bhakta, [facility] [id number] [facility] 2023-03-07 08:28:00 Outpatient Bhakta, [facility] [id number] [facility] 2023-03-05 11:04:00 Outpatient Bhakta, [facility] [id number] [facility] 2022-12-19 10:04:00 Outpatient Bhakta, [facility] [id number] [facility] 2022-11-09 11:20:00 Outpatient Bhakta, Nikolay STANIKALC STLMLC [id number] [facility] 2022-11-07 14:39:00 Outpatient Bhakta, Nikolay STANIKALC STLMLC [id number] [facility] 2022-11-02 10:30:00 Outpatient Hbakta, Nikolay STANIKALC STLMLC [id number] [facility] 2022-09-06 09:05:00 Outpatient Bhakta, Nikolay STLC STLMLC [id number] [facility] 2022-08-14 09:39:00 Outpatient Bhakta, Nikolay STLC STLMLC [id number] [facility] 2022-08-02 13:42:00 Outpatient KAMINIOfelia STLC STLC [id number] [facility] 2022-06-26 09:37:01 Outpatient Ofelia Khalil STLC STLMLC [id number] [facility] 2022-02-22 12:30:00 Inpatient NealCarlie connors HCATO HCATO [id number] [facility] 2022-01-27 09:45:01 Outpatient Jannette Good STLMLC STLMLC [id number] [facility] 2022-01-03 08:06:00 Outpatient Latisha Na STLMLC STLMLC [id number] [facility] 2021-12-08 08:08:00 Outpatient Latisha Na STLMLC STLMLC [id number] [facility] 2021-10-04 11:22:00 Outpatient Latisha Na STLMLC STLMLC [id number] [facility] 2021-09-26 09:17:00 Outpatient Latisha Na STLMLC STLMLC [id number] [facility] 2021-08-23 09:54:00 Outpatient Good, Na STLMLC STLMLC [id number] [facility] 2021-06-27 08:14:00 Outpatient Good, Na STLMLC STLMLC [id number] [facility] 2021-06-24 11:35:01 Outpatient Good, Na STLMLC STLMLC [id number] [facility] 2021-06-07 10:43:00 Outpatient Good, Na STLMLC STLMLC [id number] [facility] 2021-05-18 16:35:00 Outpatient Jannette Good STLMLC STLMLC [id number] [facility] 2021-03-23 14:34:30 Outpatient GoodJannette curry STLMLC STLMLC [id number] [facility] 2021-03-23 14:00:26 Outpatient GoodJannette curry STLMLC STLMLC [id number] [facility] 2021-03-23 13:58:30 Outpatient Jannette Good STLMLC STLMLC [id number] [facility] 2021-03-23 13:57:22 Outpatient Jannette Good STLMLC STLMLC [id number] [facility] 2021-03-23 13:23:44 Outpatient Latisha Na STLMLC STLMLC [id number] [facility] 2021-03-23 12:45:34 Outpatient Good, Na STLMLC STLMLC [id number] [facility] 2021-03-23 12:36:03 Outpatient Good, Na STLMLC STLMLC [id number] [facility] 2021-03-23 12:21:11 Outpatient Good, Na STLMLC STLMLC [id number] [facility] 2021-03-23 12:09:34 Outpatient Good, Na STLMLC STLMLC [id number] [facility] 2021-03-23 11:58:50 Outpatient Good, Na STLMLC STLMLC [id number] [facility] 2021-03-23 11:33:44 Outpatient Good, Na STLMLC STLMLC [id number] [facility] 2021-03-23 11:31:40 Outpatient Good, Na STLMLC STLMLC [id number] [facility] 2021-03-23 11:18:14 Outpatient Latisha, Na STLMLC STLMLC [id number] [facility] 2021-03-23 11:16:56 Outpatient Latisha, Jannette STLMLC STLMLC [id number] [facility] 2023-05-17 00:00:00 2023-05-17 00:00:00 OFFICE VISIT ESTAB PT LEVEL 4 STLMLC STLMLC [id number] [facility] 2023-05-17 00:00:00 2023-05-17 00:00:00 SUB ANNUAL [facility] VIS[facility] STLMLC STLMLC [id number] [facility] 2023-05-17 00:00:00 2023-05-17 00:00:00 (TEL) STLMLC STLMLC [id number] [facility] 2023-05-10 00:00:00 2023-05-10 00:00:00 (TEL) STLMLC STLMLC [id number] [facility] 2023-04-02 00:00:00 2023-04-02 00:00:00 OFFICE VISIT ESTAB PT LEVEL 3 STLMLC STLMLC [id number] [facility] 2023-03-30 00:00:00 2023-03-30 00:00:00 (TEL) [facility] [id number] [facility] 2023-03-29 00:00:00 2023-03-29 00:00:00 (TEL) [facility] [id number] [facility] 2023-03-20 00:00:00 2023-03-20 00:00:00 Ian Monzon MD: [address] [place] [phone] , Ph. [phone] [facility] [place] [facility] [place] [id number] [facility] 2023-03-09 00:00:00 2023-03-09 00:00:00 (TEL) [facility] [id number] [facility] 2023-03-09 00:00:00 2023-03-09 00:00:00 (EST. VIDEO) EST VIRTUAL VIDEO VISIT [facility] [id number] [facility] 2023-03-07 00:00:00 2023-03-07 00:00:00 Outpatient FOG_Na _Robin AO AO [id number] [facility] 2023-03-05 00:00:00 2023-03-05 00:00:00 (TEL) [facility] [id number] [facility] 2023-02-23 00:00:00 2023-02-23 00:00:00 Outpatient FOG_Behlisa _Enrico_ AO AO [id number] [facility] 2023-02-20 00:00:00 2023-02-20 00:00:00 (TEL) [facility] [id number] [facility] 2023-01-01 00:00:00 2023-01-01 00:00:00 Outpatient FOG_Burke_R jennifer_ AOSM AO [id number] [facility] 2023-01-01 00:00:00 2023-01-01 00:00:00 Outpatient FOG_Burke_R Redd AOSM AOSM [id number] [facility] 2023-01-01 00:00:00 2023-01-01 00:00:00 Outpatient FOG_Burke_R Redd AOSM AOSM [id number] [facility] 2022-12-25 00:00:00 2022-12-25 00:00:00 Outpatient GC_GCBZW_Ka diyala_S PRIV PRIV [id number] [facility] 2022-12-24 00:00:00 2022-12-24 00:00:00 Outpatient GC_GCBZW_Ka diyala_S PRIV PRIV [id number] [facility] 2022-12-20 15:46:00 2022-12-21 16:12:00 Inpatient SCAR HollingsworthNaIan HCATO SURG [id number] [facility] 2022-12-08 16:36:00 2022-12-08 16:36:00 Outpatient Ian Monzon HCACL LABO [id number] [facility] 2022-10-10 08:00:00 2022-12-08 16:00:00 Outpatient Carlie Simmons HCATO LABO [id number] [facility] 2022-12-08 10:50:00 2022-12-08 10:50:00 Outpatient Aisha Kerrnathan HCATO RADI [id number] [facility] 2022-11-29 00:00:00 2022-11-29 00:00:00 Outpatient FOG_Burke_R Redd AOSM AOSM [id number] [facility] 2022-11-29 00:00:00 2022-11-29 00:00:00 Outpatient FOG_Burke_R Redd AOSM AOSM [id number] [facility] 2022-11-29 00:00:00 2022-11-29 00:00:00 Outpatient FOG_Burke_R obJamaica AOSM AOSM [id number] [facility] 2022-11-29 00:00:00 2022-11-29 00:00:00 Outpatient FOG_Burke_R obertHAVEN AOSM AOSM [id number] [facility] 2022-11-29 00:00:00 2022-11-29 00:00:00 Outpatient FOG_Burke_R obertHAVEN AOSM AOSM [id number] [facility] 2022-11-29 00:00:00 2022-11-29 00:00:00 Outpatient FOG_Burke_R obertHAVEN AOSM AOSM [id number] [facility] 2022-11-29 00:00:00 2022-11-29 00:00:00 Outpatient FOG_Burke_R obertHAVEN AOSM AOSM [id number] [facility] 2022-11-23 00:00:00 2022-11-23 00:00:00 (TEL) [facility] [id number] [facility] 2022-11-21 00:00:00 2022-11-21 00:00:00 OFFICE VISIT ESTAB [facility] [id number] 2022-11-14 00:00:00 2022-11-14 00:00:00 (TEL) [facility] [id number] [facility] 2022-11-13 00:00:00 2022-11-13 00:00:00 Outpatient FOG_Burke_R obJamaica AOSM AOSM [id number] [facility] 2022-11-13 00:00:00 2022-11-13 00:00:00 Outpatient FOG_Burke_R obertHAVEN AOSM AOSM [id number] [facility] 2022-11-13 00:00:00 2022-11-13 00:00:00 Outpatient TERRI_Olinda Rainey AOSM AO [id number] [facility] 2022-11-13 00:00:00 2022-11-13 00:00:00 (TEL) STLMLC STLMLC [id number] [facility] 2022-11-09 00:00:00 2022-11-09 00:00:00 OFFICE VISIT NEW PT LEVEL 3 STLMLC STLMLC [id number] [facility] 2022-11-07 00:00:00 2022-11-07 00:00:00 OFFICE VISIT ESTAB PT LEVEL 4 STLMLC STLMLC [id number] [facility] 2022-11-07 00:00:00 2022-11-07 00:00:00 (TEL) STLMLC STLMLC [id number] [facility] 2022-11-02 00:00:00 2022-11-02 00:00:00 (TEL) STLMLC STLMLC [id number] [facility] 2022-10-10 17:10:00 2022-10-10 17:10:00 Outpatient Nealnatalialarry Carlie HCACL LABO [id number] [facility] 2022-10-10 08:00:00 2022-10-10 09:00:00 Outpatient Ian Kerr HCATO 3DAY [id number] [facility] [place] [facility] 2022-10-09 00:00:00 2022-10-09 00:00:00 Outpatient FOG_Olinda Rainey AOSM AO [id number] [facility] 2022-10-09 00:00:00 2022-10-09 00:00:00 Outpatient TERRI_Olinda Rainey AOSM AO [id number] [facility] 2022-10-09 00:00:00 2022-10-09 00:00:00 OFF[facility] [id number] [facility] 2022-10-06 00:00:00 2022-10-06 00:00:00 [facility]TEL) [facility] [id number] [facility] 2022-09-06 00:00:00 2022-09-06 00:00:00 [facility]TEL) [facility] [id number] [facility] 2022-09-05 00:00:00 2022-09-05 00:00:00 Outpatient FOG_Olinda Rainey AOSM AOSM [id number] [facility] 2022-08-21 00:00:00 2022-08-21 00:00:00 OFFICE VISIT ESTAB [facility] [id number] [facility] 2022-08-21 00:00:00 2022-08-21 00:00:00 SUB ANNUAL [facility] [id number] [facility] 2022-02-08 00:00:00 2022-02-08 00:00:00 (TEL) [facility] [id number] [facility] 2022-01-05 00:00:00 2022-01-05 00:00:00 Outpatient FOG_Olinda Rainey AOSM AOSM [id number] [facility] 2022-01-05 00:00:00 2022-01-05 00:00:00 Outpatient FOG_Olinda Rainey AOSM AOSM [id number] [facility] 2022-01-05 00:00:00 2022-01-05 00:00:00 Outpatient FOG_Mukul_Ricardo Rainey AOSM AOSM [id number] [facility] 2021-12-16 00:00:00 2021-12-16 00:00:00 Outpatient FOG_Burke_R Redd AO AO [id number] [facility] 2021-12-14 00:00:00 2021-12-14 00:00:00 (TEL) [facility] [id number] [facility] 2021-12-12 00:00:00 2021-12-12 00:00:00 Outpatient FOG_Burke_R Redd AO AO [id number] [facility] 2021-12-12 00:00:00 2021-12-12 00:00:00 OFFICE VISIT ESTAB PT LEVEL 4 [facility] [id number] [facility] 2021-12-12 00:00:00 2021-12-12 00:00:00 Carlie Garrido MD: [address] [place] [phone] , Ph. [phone] [facility] [place] [facility] [id number] [facility] 2021-12-11 00:00:00 2021-12-11 00:00:00 Outpatient FOG_Olinda Rainey AO AO [id number] [facility] 2021-12-09 00:00:00 2021-12-09 00:00:00 (TEL) [facility] [id number] [facility] 2021-11-02 00:00:00 2021-11-02 00:00:00 Outpatient FOG_Burke_R Redd AO AO [id number] [facility] 2021-09-28 00:00:00 2021-09-28 00:00:00 OFFICE VISIT ESTAB PT LEVEL 4 [facility] [id number] [facility] 2021-09-12 12:59:00 2021-09-12 12:59:00 Outpatient FOG_Burke_R obert_MD AOSM AOSM [id number] [facility] 2021-08-24 00:00:00 2021-08-24 00:00:00 (TEL) STLMLC STLMLC [id number] [facility] 2021-08-15 00:00:00 2021-08-15 00:00:00 OFFICE VISIT EST PT LEVEL 3 STLMLC STLMLC [id number] [facility] 2021-07-18 00:00:00 2021-07-18 00:00:00 OFFICE VISIT EST PT LEVEL 3 STLMLC STLMLC [id number] [facility] 2021-07-06 00:00:00 2021-07-06 00:00:00 (TEL) STLMLC STLMLC [id number] [facility] 2021-06-30 00:00:00 2021-06-30 00:00:00 OFFICE VISIT NEW PT LEVEL 3 STLMLC STLMLC [id number] [facility] 2021-06-29 00:00:00 2021-06-29 00:00:00 OL DIG E/M SVC 21+ MIN STLMLC STLMLC [id number] [facility] 2021-06-24 00:00:00 2021-06-24 00:00:00 (TEL) STLMLC STLMLC [id number] [facility] 2021-03-11 00:00:00 2021-03-11 00:00:00 OFFICE VISIT ESTAB PT LEVEL 4 STLMLC STLMLC [id number] [facility] 2020-12-03 00:00:00 2020-12-03 00:00:00 OFFICE VISIT ESTAB PT LEVEL 4 STLMLC STLMLC [id number] [facility] 2020-10-06 00:00:00 2020-10-06 00:00:00 (TEL) STLMLC STLMLC [id number] [facility] 2020-09-03 00:00:00 2020-09-03 00:00:00 Outpatient STLMLC STLMLC [id number] [facility] 2020-09-03 00:00:00 2020-09-03 00:00:00 Outpatient STLMLC STLMLC [id number] [facility] 2020-08-23 00:00:00 2020-08-23 00:00:00 (TEL) STLMLC STLMLC [id number] [facility] 2020-06-28 00:00:00 2020-06-28 00:00:00 Outpatient STLMLC STLMLC [id number] [facility] 2020 00:00:00 2020 00:00:00 Outpatient STLMLC STLMLC [id number] [facility] 2020-01-29 00:00:00 2020-01-29 00:00:00 Outpatient STLMLC STLMLC [id number] [facility] 2020-01-29 00:00:00 2020-01-29 00:00:00 Outpatient STLMLC STLMLC [id number] [facility] 2019-09-15 00:00:00 2019-09-15 00:00:[address] [facility] [facility] [id number] [facility] 2019-06-16 08:40:00 2019-06-16 08:40:[address] [facility] [facility] [id number] [facility] 2019-05-30 15:47:00 2019-05-30 15:47:[address] [facility] [id number] [facility] 2019-02-07 08:40:00 2019-02-07 08:40:[address] [facility] [id number] [facility] 2019-01-30 16:14:00 2019-01-30 16:14:[address] [facility] [id number] [facility] 2018-11-08 08:40:00 2018-11-08 08:40:00 [facility] [id number] [facility] 2018-10-22 08:20:00 2018-10-22 08:20:[facility] [id number] 2018-05-06 08:30:00 2018-05-06 08:30:00 [facility] [id number] [facility] Results Test Description Test Time Test Comments Results Resul t Comments Source - XR KNEE 1 OR 2 V RT 2022-12-19 10:07:00 [facility] 1960 Sex: F Patient Name: YOUNG FIGUEROA Unit No: [id number] EXAMS: CPT CODE: [id number] XR KNEE 1 OR 2 [place] RT 24770 IMAGES PROVIDED: 2 FINDINGS: Postoperative changes from right total knee arthoplasty demonstrated without evidence of immediate complication. No acute fracture is visualized. IMPRESSION: Postoperative exam as above. at 1007 Reported and signed by: Brendon Delgadillo M.D. CC: Ian Monzon MD Technologist: RAFFI PEREZ ARRT Transcribed D/ (1007) [email or web address] [facility] NAME: YOUNG FIGUEROA [address] [facility] [address] PHYS: Ian Mix MD : 1960 AGE: 62 SEX: F [place], [place] [address] LOC: Y.504 A PHONE #: [phone] EXAM DATE: 12/18/2022 STATUS: ADM IN FAX #: [phone] RAD #: D/C DT PAGE 1 Signed Report Patient Name: YOUNG FIGUEROA Unit No: [id number] EXAMS: CPT CODE: [id number] XR KNEE 1 OR 2 V RT 30799 (Continued) Orig Print D/T: S: 12/20/2022 (0735) [facility] NAME: YOUNG FIGUEROA [address] [facility] [address] PHYS: Ian Mix MD : 1960 AGE: 62 SEX: F [place], [place] [address] LOC: Y.504 A PHONE #: [phone] EXAM DATE: 12/18/2022 STATUS: ADM IN FAX #: [phone] RAD #: D/C DT PAGE 2 Signed Report SPECIMEN COMMENT: POD #1- US EXTREM NON VASC [id number] 08:06:00 [facility] : 1960 Sex: F Patient Name: YOUNG FIGUEROA Unit No: [id number] EXAMS: CPT CODE: [id number] US EXTREM NON VASC [id number] TECHNIQUE: Callawya scale and Doppler sonographic evaluation of right knee was performed dedicated to the region of clinical concern. Longitudinal and transverse imaging was performed. COMPARISON: None available. FINDINGS: No right knee effusion is visualized. No evidence of significant solid or cystic mass. Visualized regional musculature demonstrates a normal sonographic appearance. IMPRESSION: No evidence of right knee joint effusion. Electronically Signed by Jose Delgadillo on 12/11/2022 at 0806 Reported and signed by: Brendon Delgadillo M.D. CC: Carlie Eduardo echnologist: MONICA EASLEY RDMS, RVT Transcribed D/ (0806) [facility] NAME: YOUNG FIGUEROA [address] [facility] PHYS: UNDEFINED - Undefined Provider : 1960 AGE: 62 SEX: F [place] [address] LOC: LanRAD PHONE #: [phone] EXAM DATE: 12/08/2022 STATUS: DEP CLI FAX #: [phone] RAD #: D/C DT PAGE 1 Signed Report Patient Name: YOUNG FIGUEROA Unit No: [id number] EXAMS: CPT CODE: [id number] US EXTREM NON VASC COMP 19646 (Continued) Orig Print D/T: S: 12/11/2022 (0809) [facility] NAME: YOUNG FIGUEROA [address] [facility] PHYS: UNDEFINED - Undefined Provider : 1960 AGE: 62 SEX: F [place] [address] LOC: Y.RAD PHONE #: [phone] EXAM DATE: 12/08/2022 STATUS: DEP CLI FAX #: [phone] RAD #: D/C DT PAGE 2 Signed [...] fructosamineshould be considered for these patients.DONE AT: [facility] [address] [place] [address] GLYCOSYLATED HEMOGLOBIN (HA1C)2022-12-08 21:01:00* Test Item Value [...] be considered for these patients. COMPREHENSIVE METABOLIC [id number] 14:03:00* Test Item Value Reference Range Interpretation [...] ALKP) 109 U/L 46-116 N C REACTIVE [id number] 14:02:00* Test Item Value Reference Range Interpretation Comme nts C REACTIVE PROTEIN (test code = CRP) 2.54 mg/dL < 0.3 H Please note ne w normal range. CBC W/AUTO [id number] 12:24:00* Test Item Value Reference Range Interpretation [...] = NRBC) 0 % 0-0 N PROTHROMBIN [id number] 12:24:00* Test Item Value Reference Range Interpretation [...] intravascular valves IS PATIENT ON ANTICOAGULANTS ? Counts include 234 beds at the [facility] Lab been notified if Patient is on Heparin Drip? NOTHROMBOPLASTIN TIME [id number] 12:24:00* Test Item Value Reference Range Interpretation Comme nts PTT ACTIVATED (test code = APTT) 33.5 secs 25.1-36.5 N IS PATIENT ON ANTICOAGULANTS ? [facility] been notified if Patient is on Heparin Drip? NOTSH REFLEX TO FREE [id number] 00:00:00* Test Item Value Reference Range Interpretation Comme nts TSH REFLEX TO FREE T4 (test code = 38412-7) >100.000 UIU/ML See_Comment H [Automated messa ge] The system which generated this result transmitted reference range: 0.400-4.100 UIU/ML. The reference range was not used to interpret this result as normal/abnormal. CBC W/AUTO [id number] 00:00:00* Test Item Value Reference Range Interpretation Comme nts NUCLEATED RBCS (test code = 33354-2) 0.0 /100 WBC'S See_Comment [Automated messa ge] The system which generated this result transmitted reference range: 0.0 /100 WBC'S. The reference range was not used to interpret this result as normal/abnormal. ABSOLUTE EOSINOPHILS (test code = 82408-7) 0.00 K/UL See_Comment [Automated messa ge] The system which generated this result transmitted reference range: 0.00-0.50 K/UL. The reference range was not used to interpret this result as normal/abnormal. ABSOLUTE LYMPHOCYTES (test code = 99404-0) 1.46 K/UL See_Comment [Automated messa ge] The system which generated this result transmitted reference range: 1.00-4.00 K/UL. The reference range was not used to interpret this result as normal/abnormal. ABSOLUTE MONOCYTES (test code = 00174-6) 0.71 K/UL See_Comment [Automated messa ge] The system which generated this result transmitted reference range: 0.20-1.00 K/UL. The reference range was not used to interpret this result as normal/abnormal. ABSOLUTE NEUTROPHILS (test code = 32319-3) 6.05 K/UL See_Comment [Automated messa ge] The system which generated this result transmitted reference range: 1.50-7.50 K/UL. The reference range was not used to interpret this result as normal/abnormal. BASOPHILS (test code = 70753-4) 0.6 % EOSINOPHILS (test code = 62685-1) 0.0 % HEMATOCRIT (test code = 21407-9) 37.6 % See_Comment [Automated messa ge] The [...] result as normal/abnormal. LYMPHOCYTES (test code = 87037-8) 17.6 % MCH (test code = 27128-4) 32.0 PG See_Comment [Automated messa ge] The system which generated this result transmitted reference range: 25.0-33.0 PG. The reference range was not used to interpret this result as normal/abnormal. MCHC (test code = 57928-0) 33.8 G/DL See_Comment [Automated messa ge] The system which generated this result transmitted reference range: 31.0-36.0 G/DL. The reference range was not used to interpret this result as normal/abnormal. MCV (test code = 54669-3) 94.7 fL See_Comment [Automated messa ge] The system which generated this result transmitted reference range: 80.0-99.0 fL. The reference range was not used to interpret this result as normal/abnormal. MONOCYTES (test code = 05639-5) 8.6 % NEUTROPHILS (test code = 36890-6) 72.8 % PLATELET COUNT (test code = 79061-7) 329 K/UL See_Comment [Automated messa ge] The system which generated this result transmitted reference range: 130-400 K/UL. The reference range was not used to interpret this result as normal/abnormal. RBC (test code = 26036-2) 3.97 M/UL See_Comment [Automated messa ge] The system which generated this result transmitted reference range: 3.80-5.40 M/UL. The reference range was not used to interpret this result as normal/abnormal. RDW (test code = 12324-5) 14.5 % See_Comment [Automated messa ge] The system which generated this result transmitted reference range: 11.5-15.0 %. The reference range was not used to interpret this result as normal/abnormal. WBC (test code = 47842-0) 8.3 K/UL See_Comment [Automated messa ge] The system which generated this result transmitted reference range: 3.5-11.0 K/UL. The reference range was not used to interpret this result as normal/abnormal. HEMOGLOBIN [id number] 00:00:00* Test Item Value Reference Range Interpretation [facility] HEMOGLOBIN A1c (test code = 4548-4) 5.0 % See_Comment [Automated messa ge] The system which generated this result transmitted reference range: 4.2-5.6 %. The reference range was not used to interpret this result as normal/abnormal. FREE T4 (THYROXINE)2022-11-21 00:00:00* Test Item Value Reference Range Interpretation [facility] FREE T4 (THYROXINE) (test code = 3024-7) 0.73 NG/DL See_Comment L [Automated messa ge] The system which generated this result transmitted reference range: 0.80-1.90 NG/DL. The reference range was not used to interpret this result as normal/abnormal. HEPATITIS C VCCEBWES6477-82-08 00:00:00* Test Item Value Reference Range Interpretation [facility] HEPATITIS C ANTIBODY (test c ode = 30198-6) NON-REACTIVE NON-REACTIVE LIPID PANEL WITH REFLEX DIRECT [id number] 00:00:00* Test Item Value Reference Range Interpretation [facility] CALC LDL CHOL (test code = 00809-5) 62 MG/DL See_Comment [Automated messa ge] The system which generated this result transmitted reference range: <100 MG/DL. The reference range was not used to interpret this result as normal/abnormal. CHOLESTEROL (test code = 2093-3) 146 MG/DL See_Comment [Automated messa ge] The system which generated this result transmitted reference range: <200 MG/DL. The reference range was not used to interpret this result as normal/abnormal. HDL CHOLESTEROL (test code = 2085-9) 71 MG/DL See_Comment [Automated messa ge] The system which generated this result transmitted reference range: >39 MG/DL. The reference range was not used to interpret this result as normal/abnormal. RISK RATIO LDL/HDL (test code = 22004-6) 0.87 RATIO See_Comment [Automated message] The system which generated this result transmitted reference range: <3.22 RATIO. The reference range was not used to interpret this result as normal/abnormal. TRIGLYCERIDES (test code = 2571-8) 54 MG/DL See_Comment [Automated messa ge] The system which generated this result transmitted reference range: <150 MG/DL. The reference range was not used to interpret this result as normal/abnormal. COMPREHENSIVE METABOLIC [id number] 00:00:00* Test Item Value Reference Range Interpretation [...] result as normal/abnormal. CALCIUM (test code = 84187-9) 9.5 MG/DL See_Comment [Automated messa ge] The system which generated this result transmitted reference range: 8.5-10.5 MG/DL. The reference range was not used to interpret this result as normal/abnormal. CALC A/G RATIO (test code = 1759-0) 1.3 RATIO See_Comment [Automated [employer] ge] The system which generated this result [...] as normal/abnormal. CALC GLOBULIN (test code = 44409-2) 3.2 G/DL See_Comment [Automated messa ge] The [...] normal/abnormal. eGFR (2020 CKD-EPI) (test code = 41438-8) 103 ML/MIN/1.73 See_Comment [Automated message] The system [...] code = 2951-2) 138 MEQ/L See_Comment [Automated messa ge] The system which generated this result transmitted reference range: 133-146 MEQ/L. The reference range was not used to interpret this result as normal/abnormal. COMPREHENSIVE METABOLIC DWFCU8949-68-54 14:27:00* Test Item Value Reference Range Interpretation [...] = ALKP) 81 U/L 46-116 N PROTHROMBIN JRBB4817-33-04 13:31:00* Test Item Value Reference Range Interpretation [...] intravascular valves IS PATIENT ON ANTICOAGULANTS ? [facility] been notified if Patient is on Heparin Drip? NOTHROMBOPLASTIN TIME SSMFGXO9754-18-45 13:31:00* Test Item Value Reference Range Interpretation Comme nts PTT ACTIVATED (test code = APTT) 37.0 secs 25.1-36.5 H IS PATIENT ON ANTICOAGULANTS ? [facility] been notified if Patient is on Heparin Drip? NOCBC W/AUTO CTVS2743-02-87 13:05:00* Test Item Value Reference Range Interpretation [...] Notes Date/Time Note Provider Source 2023-01-25 12:51:00 [id number] is95CpBqlVr9OkqGMz0bl+BlzYx0Y LApDpWyZTbsTB4pRyHLflEyQObF3296-04-37X01:51:00 [facility]Discharge SummaryREPORT#:[id number] REPORT STATUS: SignedREPORT INITIALIZATION DATE:01/25/23 TIME: 1251 PATIENT: YOUNG FIGUEROA UNIT #: [id number]#: [id number] ROOM/BED: 504-ADOB: [birth year] AGE: 62 SEX: F ATTEND: Ian Monzon [facility] AUTHOR: Ian Monzon MDREPT SERVICE DT/TIME: 12/21/22 1251* ALL edits or amendments must be made on the electronic/computer document * PCP PCPPCP:PCP: Ian Monzon MD Discharge to: home General InformationDate of admission:Observation Start Date: 12/18/22Date of admission: 12/20/22 Discharge date: 12/21/22Discharge diagnosis:Right distal femur fracture, nez perce knee fusionHospital course: Discharge Diagnosis: Right Knee distal femur fracture, nez perce knee fusion s/p complex right distal femoral [...] Will undergo PT for gait training, mobilization, btxub-iw-nieewy, and strengthening. Patient was informed that they need to arrange for therapy as quickly as possible. The importance of early advancement of gvvca-cj-zoslmq withhome exercises, and physical therapy was stressed [...] TO SCHEDULE A FOLLOW-UP APPOINTMENT at [address] [facility] #:[id number] OF REPORT DSDischarge agdzyua0089-31-65F71:51:00Y.KXMK53661663-9112LUNc ailable for patient qrqbZSMAZOQTWGHTXO0394-45-31V60:57:07 [facility] 2022-12-21 09:29:00 [id number] Cd1shixEy67Wu7CxnWIZ+8D/bYD[facility] v12jagR5zDh5Spo5IxOyUFaty8h3352-13-74P27:29:00 [facility])Clinical NoteREPORT#:[id number] REPORT STATUS: SignedREPORT INITIALIZATION DATE:12/21/22 TIME: 928 PATIENT: YOUNG FIGUEROA UNIT #: [id number]#: [id number] [facility] AGE: 62 SEX: F ATTEND: Ian Monzon MDA AUTHOR: Miguel Angel Howe MDREPT SERVICE DT/TIME: 12/21/22928* ALL edits or amendments must be made on the electronic/computer document * Clinical NoteNote:[facility] Miguel Angel Kenney M.D. (cell text [phone]) Assessment/Plan1.) Anemia of acute blood loss- .Hgb [...] Miguel Angel Kenney M.D. at 1052 RPT #:[id number] OF REPORT CLClinical jdtr9106-03-67J03:29:00Y.UAVG25039388-1859MTWqezd able for patient vaziDFCZDWDHAQBIEL6164-48-01M88:53:47 [facility] 20[facility] 08:27:00 [id number] oGBzUMJeLeloKiF5qM3XFalzR4XeI Xjq2qwPVhN9uZi8fAHogr4IqCl37823-78-28K99:27:00 [facility]Orthopaedic Progress NoteREPORT#:[id number] REPORT STATUS: SignedREPORT INITIALIZATION DATE:12/21/22 TIME: 826 PATIENT: YOUNG FIGUEROA UNIT #: [id number]#: [id number] ROOM/BED: [facility]-ADOB: [birth year] AGE: 62 SEX: F ATTEND: Ian [...] 2 weeks for wound check at [address] [facility] #:[id number] OF REPORT PRProgress aond7248-10-80F74:27:00Y.VJBH62700190-3153IQTaphd able for patient wsyyONFFIWXKZZBOZZ6247-11-74J18:30:03 [facility] 2022-12-20 14:04:00 [id number] lWB8Eky3puh6qjqoo9ETc/r5NgCT6 M6w40VrPOnKqowyNcA9fqoBtOOC1787-49-08M81:04:00 [facility]DT Operative NoteREPORT#:[id number] REPORT STATUS: SignedREPORT INITIALIZATION DATE:12/20/22 TIME: 1403 PATIENT: YOUNG FIGUEROA UNIT #: [id number]#: [id number] [facility] [birth year] AGE: 62 SEX: F ATTEND: Ian Monzon MDADM AUTHOR: Ian Monzon MDREPT SERVICE DT/TIME: 12/18/221403* ALL edits or amendments must be made [...] Primary Surgeon:Ian Monzon MD Co-surgeon:Eun Bhakta MD [employer] Installer(s): Alida Santana MD and Haim Nails Complications: [...] replacing prosthesis. Goals of the procedure include confucianist of joint stability and motion as well as pain control in the setting of significantdeformity and altered anatomy. Spanish Lecturer: The skilled assistance of the health information assistant surgeon was necessary during this reconstructive [...] possible without the help of a skilled health information assistant familiar with the procedure and capable [...] then prepped for a cone with the Intermolecular broach to a size B. The tibia [...] recovery in stable condition. at 1408 RPT #:[id number] OF REPORT OPOperative yhqdib0929-88-74Q72:04:00Y.MJJV07572639-0430SYItj ilable for patient kwufIGUIIMLMFZWKPV9822-36-03O90:08:24 [facility] 2022-12-20 14:00:00 R30919162769/4mxpqLT P6+o3H4ioGO6rtR2kYr+CLBbBZhJD CSRNOPjfnSPeKUPmUOU3NdYWmF86044-78-12Q49:00:00 [facility]Orthopaedic Progress NoteREPORT#:[id number] REPORT STATUS: SignedREPORT INITIALIZATION DATE:12/20/22 TIME: 1400 PATIENT: YOUNG FIGUEROA UNIT #: [id number]#: [id number] ROOM/BED: [facility]-ADOB: [birth year] AGE: 62 SEX: F [...] pain control, plan for tomorrow 12/21 [facility] #:[id number] OF REPORT PRProgress vomc3383-87-00V66:00:00Y.NHNU89870110-0223ZYSmakk able for patient hvbzPUDUCNVLLJKTOX4206-54-97W52:04:53 [facility] 2022-12-20 09:40:00 P602093909652DOy3y2c 53t4toncRrl/b3F+/HdwfCBroklr4 s/RdN9UBelQKUJL5yCAY9q9StEE2913-96-74I45:40:00 [facility]Clinical NoteREPORT#:[id number] REPORT STATUS: SignedREPORT INITIALIZATION DATE:12/20/22 TIME: 939 PATIENT: YOUNG FIGUEROA UNIT #: [id number]#: [id number] ROOM/BED: [facility]-ADOB: [birth year] AGE: 62 SEX: F ATTEND: Ian Monzon MDADM AUTHOR: Miguel Angel Howe MDREPT SERVICE DT/TIME: 12/20/22 0940* ALL edits or amendments must be made on the electronic/computer document * Clinical NoteNote:[facility] Miguel Angel Kenney M.D. (cell text [phone]) Assessment/Plan1.) Anemia of acute blood loss- .Hgb [...] Miguel Angel Kenney M.D. at 1158 RPT #:[id number] OF REPORT CLClinical scrc8266-27-78B59:40:00Y.GSHT14456359-7907XSPqmxz able for patient efatJKDDBFQJXMUKJO4955-31-90E79:59:18 [facility] 2022-12-19 10:36:00 J53954389143FrLrtJyt TxY1TXtny0RrUoYAIUlanlmFohxSl rwLeykcl778E3wNuK5dyCT117lB6139-35-54Z38:36:00 [facility]Orthopaedic Progress NoteREPORT#:[id number] REPORT STATUS: SignedREPORT INITIALIZATION DATE:12/19/22 TIME: 103 PATIENT: YOUNG FIGUEROA UNIT #: [id number]#: [id number] ROOM/BED: [facility]-ADOB: [birth year] AGE: 62 SEX: F ATTEND: Ian [...] physical therapy, likely tomorrow 12/20 at [address] [facility] #:[id number] OF REPORT PRProgress wgxs7336-92-75P11:36:00Y.LBMX74950121-7636OHOyvrr able for patient hyibBBYEWTOTXIMUAF9825-13-38B87:42:18 [facility] 2022-12-19 09:38:00 [id number] AswDNzkVM5ujvX2iU9TsxJ4D2n938 Snml8jBJ++6+EyT4iMyVN9i5t3u9459-51-24R81:38:00 [facility])Clinical NoteREPORT#:[id number] REPORT STATUS: SignedREPORT INITIALIZATION DATE:12/19/22 TIME: 937 PATIENT: YOUNG FIGUEROA UNIT #: [id number]#: [id number] [facility] [birth year] AGE: 62 SEX: F ATTEND: Ian Monzon [facility] AUTHOR: Miguel Angel Howe MDREPT SERVICE DT/TIME: 12/19/22937* ALL edits or amendments must be made on the electronic/computer document * Clinical NoteNote:[facility] Miguel Angel Kenney M.D. (cell text [phone]) Assessment/Plan1.) Anemia of acute blood loss- .Hgb [...] 19 109/72 84.3 100 Nasal cannula 12/19 213 99 Nasal 2 28 cannula 12/18 2206 97.3 92 18 108/76 87.1 100 Nasal cannula 12/18 2005 100 Nasal 2 28 cannula 12/18 1932 97.7 77 18 95/67 76.5 100 Nasal [...] 27.5 L Miguel Angel Kenney M.D. at [address] [place] [address] #:[id number] OF REPORT CLClinical vmvx3366-52-40L64:38:00Y.MVOB20975220-3649PNCcggq able for patient isnnTPLESPSLJAGBAJ1671-47-68U43:38:38 [facility] 2022-12-18 15:52:00 [id number]+CRf ARWUQwXQENtd6Xd7xcwfKE/74AsEu oJwYUcb1hZpX2/t7VgHoY8lDWYX3248-90-69I51:52:00 [facility])Clinical NoteREPORT#:[id number] REPORT STATUS: SignedREPORT INITIALIZATION DATE:12/18/22 TIME: 1552 PATIENT: YOUNG FIGUEROA UNIT #: [id number]#: [id number] ROOM/BED: [facility]-ADOB: [birth year] AGE: 62 SEX: F ATTEND: Ian Monzon MDADM AUTHOR: Miguel Angel Howe MDREPT SERVICE DT/TIME: 12/18/22 7021* ALL edits or amendments must be made on the electronic/computer document * Clinical NoteNote:[facility] Miguel Angel Kenney MD(cell text [phone])Internal Medicine Consult at request of : Dr. Ian Monzon Chief Complaint: right distal femur fracture HPI: 62 yo F is now s/p Right knee fusion takedown, complex primary right kneearthroplasty to distal femur replacement by Dr. Monzon Ms. Figueroa has a h/o nez perce knee fusion secondary to trauma and rheumatoid [...] normal parameters and a f/u plan is njledizrogN2435 - Patient screened for tobacco use AND identified as a tobacco non-wwss5706G - ACP discussion - default code status while at [facility]. at 2125 RPT #:[id number] OF REPORT CLClinical ocka4347-73-10L62:52:00Y.QVIR71687442-2004WEDaipf able for patient pwdqJRQAGNTKJGJVSC1443-91-96Z34:25:29 [facility] 2022-12-18 11:46:00 D45134187828qhZdeR+0 iE8hpEoKQgH6TKvK7ZAZypmv7PYYt RPFoqIOa8uvL+fi+g4CZ+keEwOw2068-75-38Y33:46:00 [facility]Brief Op NoteREPORT#:[id number] REPORT STATUS: SignedREPORT INITIALIZATION DATE:12/18/22 TIME: 114 PATIENT: YOUNG FIGUEROA UNIT #: [id number]#: [id number] [address] [birth year] AGE: 62 SEX: F ATTEND: Ian Monzon MDA AUTHOR: Ian Monzon MDREPT SERVICE DT/TIME: 12/18/22 1146* ALL edits or amendments must be made on the electronic/computer document * Op/Inv Proc Note - BriefPre-procedure diagnosis:R distal femur fracture, nez perce knee fusionPost-procedure diagnosis: same as pre procedure dx (same )Procedures performed:Right knee fusion takedown, complex primary knee arthroplasty to distal femoral replacement Primary Surgeon:Ian Monzon MDCo-surgeon:Eun Bhakta MDAssistant(s): Max CHAVARRIA and Haim Nails Findings:See dictated op noteComplications: noneEstimated blood loss in ml's: 150ccSpecimens removed/altered: none (distal femur malunited fractur), distal femur malunited fractureDrain(s): Bang Catheter PlacedWound class: clean at [address] [facility] #:[id number] OF REPORT OPOperative ljvrbc0477-14-21Z41:46:00Y.DJTJ32193893-5249JHEdx ilable for patient iwuvJZJRCGCDUGLFXD1647-46-47K29:58:06 [facility] 2022-10-10 11:27:00 [id number]+PSFWhzM ZUlHMASG3/rxYoTKy222n5hOtyBje llLRtmj84w8L4vIsdUML4OFojZ/4358-44-48P54:27:75329 7-[address]66 [place] [address] PATIENT NAME: YOUNG FIGUEROA ADMIT DATE: ACCOUNT NO: [id number] ROOM NO: AGE: 62 REPORT TYPE: ELECTROCARDIOGRAM SEX: F ADMITTING PHYSICIAN: ATTENDING PHYSICIAN:Carlie Garrido MD Order:[id number] Reason : PRE OP CLEARANCE HTN Test [...] previous ECGs availableConfirmed by WILLARD COOPER MD ([id number]) on 10/12/2022 12:28:11 PM Referred By: Carlie Garrido Confirmed by:WILLARD COOPER MD PATIENT NAME: YOUNG FIGUEROA .[id number] AVAvailable for patient fdxjFETECMKTYUOJJE7521-34-46T14:28:33 [facility]
[2023-06-02 07:33] LABS: Sqamous Epithelial None Seen /HPF (None Seen); Urine Bacteria >50 /HPF (<20); Urine Bilirubin NEGATIVE (Negative); Urine Blood 2+ (Negative); Urine Clarity Extremely Turbid (Clear); Urine Color Light-Orange (Yellow); Urine Culture Reflex Order REFLEXED; Urine Glucose NEGATIVE (Negative); Urine Ketones NEGATIVE (Negative); Urine Microscopic Reflex YN ORDER UMIC; Urine Nitrite 1+ (Negative); Urine Protein TRACE (Negative); Urine RBC >50 /HPF (None Seen); Urine Urobilinogen Normal (Normal); Urine WBC >50 /HPF (<5); Urine WBC Clump Many /HPF (None Seen)
[2023-06-02 07:36] LABS: Absolute Basophils 0.1 K/uL (0-0.5); Absolute Neutrophil 14.5 K/uL (1.8-8.0); Basophils % 0.5 % (0-1.3); Eosinophils % 0.1 % (0-4.4); Hematocrit 35.6 % (36.0-45.0); Hemoglobin 11.6 g/dL (12.0-15.0); Lymphocytes % 5.8 % (15.3-44.8); MCH 25.4 pg (27.0-35.0); MCHC 32.7 g/dL (32.0-36.0); MCV 77.5 fL (80-100); MPV 8.1 fL (7.6-11.3); Monocytes % 6.3 % (3.3-12.3); Neutrophils % 87.3 % (41.7-73.7); Nucleated Red Blood Cells % 0.1 % (0-0); Platelets 511 thou/uL (152-406); RBC Red Blood Cell Count 4.59 M/uL (3.86-4.86); Red Cell Distribution Width 17.2 % (12.1-15.2)
[2023-06-02] MEDS ORDERED: ONDANSETRON 4 MG/2 ML VIAL ONE (07:46)
[2023-06-02] MEDS ORDERED: ENOXAPARIN 80 MG/0.8 ML SQ ONE (07:47)
[2023-06-02] MEDS ORDERED: ASPIRIN 81 MG CHEWABLE TABLET ONE (07:47)
[2023-06-02] MEDS ORDERED: FAMOTIDINE 20 MG/2 ML VIAL IV ONE (07:48)
[2023-06-02] MEDS ORDERED: NS 0.9% VIAL 10 ML ONE (07:48)
[2023-06-02] MEDS ORDERED: MORPHINE 2 MG/ML SYR ONE (07:48)
[2023-06-02] MEDS ORDERED: NA CHLORIDE 0.9% 100 ML ONE (07:48)
--- NOTE | 2023-06-02 07:48 | ER ---
Nurse's Notes [facility] Name: Young Gates Age: 63 yrs Sex: Female : 1960 Arrival Date: 06/02/2023 Time: 06:20 Bed 20 Private MD: Diagnosis: Chest pain on breathing;Chest pain, unspecified;Pressure ulcer of sacral region, stage 4;Abnormal electrocardiogram [ECG] [EKG];Leakage of urinary (indwelling) catheter;Elevated white blood cell count;Hypokalemia;Osteomyelitis, unspecified-SACRAL / COCCYX Presentation: 06/01 06:35 Chief complaint: Patient states: Started having chest pain this morning around 0430 jw7 that woke me up and radiates to my back and kidneys. 06:35 Method Of Arrival: EMS: [facility] 06:35 Coronavirus screen: At this time, the client does not indicate any symptoms associated jw7 with coronavirus-19. Ebola Screen: No symptoms or risks identified at this time. Initial Sepsis Screen: Does the patient meet any 2 criteria? HR > 90 bpm. No. Patient's initial sepsis screen is negative. Does the patient have a suspected source of infection? No. Patient's initial sepsis screen is negative. Risk Assessment: Do you want to hurt yourself or someone else? Patient reports no desire to harm self or others. Onset of symptoms was June 02, 2023 at 04:35. Care prior to arrival: Medication(s) given: ASA, 325 mg, Normal saline infusion, 1000 mL, zofran 4 mg, IV initiated. 20 GA, in the right antecubital area. 06:35 Acuity: KJ 2 jw7 Triage Assessment: 06:35 General: Appears in no apparent distress. uncomfortable, Behavior is calm, cooperative. jw7 Pain: Complains of pain in chest Pain radiates to back Pain currently is 7 out of 10 on a pain scale. Quality of pain is described as aching, Pain began suddenly, Is continuous. EENT: No deficits noted. No signs and/or symptoms were reported regarding the EENT system. Neuro: Level of Consciousness is awake, alert, obeys commands, Oriented to person, place, time, situation. Cardiovascular: Heart tones S1 S2 present Capillary refill < 3 seconds Clubbing of nail beds is absent JVD is absent Patient's skin is warm and dry. Rhythm is sinus tachycardia. Respiratory: Airway is patent Trachea midline Respiratory effort is even, unlabored, Respiratory pattern is regular, symmetrical, Breath sounds are clear bilaterally. GI: Abdomen is round obese, Stools are reported to be diarrhea. Last BM was June 02, 2023. Bowel sounds present X 4 quads. Abd is soft X 4 quads Abdomen is tender to palpation X 4 quads. Reports diarrhea. : Patton in place Urine is cloudy. Derm: Skin is fragile, Skin is dry, Skin is normal, Skin temperature is warm Decubitus located on sacrum approximately > 20 cm is stage III has denuded edges has erythematous edges bed has granulation present bed has fibrin present is draining small amount malodorous, green serosanguinous. Musculoskeletal: Circulation, motion, and sensation intact. Range of motion: limited in all extremities. Historical: - Allergies: 06:35 Ampicillin; jw7 06:35 Azithromycin; jw7 06:35 Lisinopril; jw7 06:35 PENICILLINS; jw7 06:35 SHELLFISH; jw7 - PMHx: 06:35 Arthritis; Hypertension; Hypothyroidism; Kidney Stones; jw7 - PSHx: 06:35 Right Knee Replacement; jw7 - Immunization history:: Adult Immunizations up to date, Client reports receiving the 2nd dose of the Covid vaccine, Last tetanus immunization: > 10 years ago Pneumococcal vaccine is up to date, Flu vaccine is up to date. - Infectious Disease History:: Denies. - Family history:: not pertinent. - Social history:: Smoking status: unknown. Screenin:35 [facility] ED Fall Risk Assessment (Adult) History of falling in the last 3 months, jw7 including since admission No falls in past 3 months (0 pts) Confusion or Disorientation No (0 pts) Intoxicated or Sedated No (0 pts) Impaired Gait No (0 pts) Mobility Assist Device Used No (0 pt) Altered Elimination No (0 pt) Score/Fall Risk Level 0 - 2 = Low Risk Oriented to surroundings, Maintained a safe environment, Educated pt \T\ family on fall prevention, incl call for assistance when getting out of bed. Abuse screen: Denies threats or abuse. Denies injuries from another. Nutritional screening: No deficits noted. Tuberculosis screening: No symptoms or risk factors identified. Assessment: 07:24 General: Appears in no apparent distress. Behavior is calm, cooperative. Pain: ph Complains of pain in buttocks, chest and abdomen. Neuro: Level of Consciousness is awake, alert, obeys commands, Oriented to person, place, time, situation. 07:24 Cardiovascular: Reports chest pain. Respiratory: Airway is patent Respiratory effort is ph even, unlabored. GI: Reports lower abdominal pain, upper abdominal pain, diarrhea. : Reports pain in lower back. Derm: Decubitus located on sacrum approximately > 20 cm is stage III has denuded edges has erythematous edges bed has granulation present is draining small amount serosanguinous. Musculoskeletal: Range of motion: limited in lower extremities. Vital Signs: 06:35 BP 129 / 100; Pulse 116; Resp 18 S; Temp 98.2(O); Pulse Ox 97% on R/A; Weight 74.84 kg; jw7 Height 5 ft. 8 in. ; Pain 7/10; 07:26 BP 131 / 96; Pulse 106; Resp 18; Pulse Ox 99% on R/A; ph 08:44 Pain 2/10; ab3 09:00 BP 136 / 95; Pulse 101; Resp 12; Pulse Ox 99% on R/A; ab3 10:00 BP 110 / 86; Pulse 94; Resp 12; Temp 98.8; Pulse Ox 99% on R/A; ab3 10:30 BP 115 / 79; Pulse 95; Resp 14; Pulse Ox 98% on R/A; ab3 10:38 Pain 3/10; ab3 12:00 BP 126 / 90; Pulse 104; Resp 12; Pulse Ox 98% on R/A; ab3 06:35 Body Mass Index 25.09 (74.84 kg, 172.72 cm) jw7 06:35 Pain Scale: Adult jw7 08:44 Pain Scale: Adult ab3 10:38 Pain Scale: Adult ab3 Vitals: 07:26 Cardiac Rhythm Assessment Sinus tach. ph Emblem Coma Score: 07:41 Eye Response: spontaneous(4). Motor Response: obeys commands(6). Verbal Response: cirilo oriented(5). Total: 15. 10:00 Eye Response: spontaneous(4). Motor Response: obeys commands(6). Verbal Response: ab3 oriented(5). Total: 15. 12:00 Eye Response: spontaneous(4). Motor Response: obeys commands(6). Verbal Response: ab3 oriented(5). Total: 15. ED Course: 06:21 Patient arrived in ED. jj6 06:26 Janes Higginbotham MD is Attending Physician. rt 06:35 Maintain EMS IV. Dressing intact. Good blood return noted. Site clean \T\ dry. Gauge \T\ jw 7 site: 20 G RAC. O2 via RA. 06:35 Arm band placed on. jw7 06:35 Provided Education on: Use of Call Light. Client placed on continuous cardiac and pulse jw7 oximetry monitoring. NIBP monitoring applied. 06:55 EKG done, by power equipment technology instructor. reviewed by Janes Higginbotham MD. oe 06:56 Placed in gown. Bed in low position. Call light in reach. Side rails up X 1. oe 07:09 Attending Physician role handed off by Janes Higginbotham MD cirilo 07:09 Fam Hall MD is Attending Physician. cirilo 07:12 Triage completed. jw7 07:20 Maintain EMS IV. IV is patent, is intact, with fluids infusing freely. ab3 07:20 Report given to EUNICE SCOTT. jw7 07:22 Shivani Camejo RN is Primary Nurse. ph 07:26 Basic Metabolic Panel Sent. ph 07:26 CBC with Diff Sent. ph 07:26 LFT's Sent. ph 07:26 Magnesium Sent. ph 07:26 Troponin HS Sent. ph 07:26 Lipase Sent. ph 07:46 Cooper Boyer MD is Hospitalizing Provider. cirilo 07:49 XRAY Chest (1 view) In Process Unspecified. EDMS 08:07 CT COMPLETED. sm9 08:11 CT Abd/Pelvis - IV Contrast Only In Process Unspecified. EDMS 08:11 CT Chest For PE Angio In Process Unspecified. EDMS 08:34 US Extremity Venous W Compression Cristian In Process Unspecified. EDMS 09:44 Admitting physician to see patient. ab3 11:59 Maintain EMS IV. Dressing intact. Site clean \T\ dry. IV is patent, is intact, with ab3 fluids infusing freely. 12:16 No provider procedures requiring assistance completed. ab3 12:16 Patient admitted, IV remains in place. ab3 Administered Medications: 07:52 Drug: morphine IVP or IV 2 mg IVP once over 4 mins Route: IVP; Infused Over: 4 mins; ab3 Site: right antecubital; 08:44 Follow up: Pain 2/10 Adult; Response: Adverse reaction, Physician notified; Pain is ab3 decreased; RASS: Alert and Calm (0) 10:38 Follow up: Pain 3/10 Adult; Response: Pain is unchanged, physician notified ab3 07:52 Drug: Ondansetron IVP 2 mg IVP once; over 2 minutes Route: IVP; Site: right antecubital;ab3 12:05 Follow up: Response: No adverse reaction; Nausea is decreased ab3 07:54 Drug: Famotidine IVP 20 mg IVP once; dilute with 10 mL 0.9% NaCl; give over 2 minutes ab3 Route: IVP; Site: right antecubital; 09:11 Follow up: Response: No adverse reaction ab3 07:54 Drug: Enoxaparin Sub-Q 1 mg/kg Sub-Q once Route: Sub-Q; Site: right lower abdomen; ab3 08:50 Follow up: Response: No adverse reaction ab3 08:05 CANCELLED (Patient was given 324mg ASA en route by EMS): aspirinchewable tablet 162 mg ab3 PO once 08:45 Drug: Cefepime IVPB 1 grams IVPB at 200 ml/hr once over 30 mins; (mix in NS 100 mL) ab3 Route: IVPB; Rate: 200 ml/hr; Infused Over: 30 mins; Site: right antecubital; Delivery: Primary tubing; 09:15 Follow up: Response: No adverse reaction; IV Status: Completed infusion; IV Intake: ab3 100ml 09:05 Drug: NS 0.9% with KCl IV 20 mEq/L 1000 ml IV at 125 ml/hr continuous Route: IV; Rate: ab3 125 ml/hr; Site: right antecubital; 10:37 Follow up: Response: No adverse reaction ab3 12:04 Follow up: Response: No adverse reaction; IV Status: Infusion continued upon admission ab3 09:06 Drug: Potassium Chloride IV 20 mEq IV at per protocol once; administer over 1-2 hours ab3 Route: IV; Rate: per protocol; Site: right antecubital; Delivery: Primary tubing; 12:03 Follow up: Response: No adverse reaction; IV Status: Completed infusion; IV Intake: ab3 100ml 09:35 Drug: Potassium PO Effervescent Tablet 50 mEq PO once; dissolve in 4 ounces of water or ab3 juice Route: PO; 12:05 Follow up: Response: No adverse reaction ab3 10:25 Drug: vancoMYCIN IVPB 1 grams IVPB once over 2 hrs Route: IVPB; Rate: 125 ml/hr; ab3 Infused Over: 2 hrs; Site: right antecubital; Delivery: Primary tubing; 12:03 Follow up: Response: No adverse reaction; IV Status: Infusion continued upon admission ab3 Medication: 07:26 VIS not applicable for this client. ph Intake: 09:15 IV: 100ml; Total: 100ml. ab3 12:03 IV: 100ml; Total: 200ml. ab3 Outcome: 07:48 Decision to Hospitalize by Provider. cirilo 11:58 Condition: stable ab3 11:58 Instructed on the need for admit, Demonstrated understanding of instructions, 12:15 Admitted to Tele accompanied by tech, via stretcher, with chart, Report called to [place] ab3 Faxed at [phone] 12:17 Patient left the ED. ab3 Signatures: Dispatcher [employer] EDMS Fam Hall MD MD cha Hall, Patricia, RN RN ph Brandon Carlin Jennifer jj6 Lindsey Loving, EUNICE RN jw7 Janes Higginbotham MD MD rt Lachelle Sherwood 9 Arlet Tejada, RN RN ab3 Corrections: (The following items were deleted from the chart) 07:15 06:35 PSHx: shell fish (Hypothyroidism); jw7 jw7 10:32 09:15 BP 091 / 5; Response: No adverse reaction; IV Intake: 100ml ab3 ab3 10:33 09:15 BP 091 / 5; Response: No adverse reaction; IV Intake: 100ml ab3 ab3 10:33 09:15 BP 091 / 5; Response: No adverse reaction; IV Intake: 100ml ab3 ab3 10:37 09:15 Response: No adverse reaction; IV Intake: 100ml ab3 ab3 12:02 10:38 Response: No adverse reaction ab3 ab3 12:03 10:38 Response: No adverse reaction; IV Intake: 100ml ab3 ab3 12:05 08:44 Response: No adverse reaction; Nausea is decreased ab3 ab3 12:06 09:15 Response: No adverse reaction; IV Intake: 100ml ab3 ab3
--- NOTE | 2023-06-02 07:49 | EDPHYS ---
Physician Documentation [facility] Name: Young Gates Age: 63 yrs Sex: Female : 1960 Arrival Date: 06/02/2023 Time: 06:20 Bed 20 Private MD: ED Physician Fam Hall HPI: 06/01 06:36 This 63 yrs old Female presents to ER via Unassigned with complaints of Chest Pain. rt 06:36 Patient presents to the ED with chest pain which she states radiates to her kidneys. rt Patient also reports having diarrhea starting overnight. Reports abdominal pain. Denies other acute complaints at this time, symptoms are moderate in severity, no other aggravating relieving factors. Patient did state that she noticed some blood on her check pad, believes that it was coming from the wound VAC.. Historical: - Allergies: 06:35 Ampicillin; jw7 06:35 Azithromycin; jw7 06:35 Lisinopril; jw7 06:35 PENICILLINS; jw7 06:35 SHELLFISH; jw7 - PMHx: 06:35 Arthritis; Hypertension; Hypothyroidism; Kidney Stones; jw7 - PSHx: 06:35 Right Knee Replacement; jw7 - Immunization history:: Adult Immunizations up to date, Client reports receiving the 2nd dose of the Covid vaccine, Last tetanus immunization: > 10 years ago Pneumococcal vaccine is up to date, Flu vaccine is up to date. - Infectious Disease History:: Denies. - Family history:: not pertinent. - Social history:: Smoking status: unknown. ROS: 06:36 Constitutional: Negative for fever, chills, and weight loss, MS/Extremity: Negative for rt injury and deformity, Skin: Negative for injury, rash, and discoloration, 06:36 Cardiovascular: Positive for chest pain, Negative for edema, 06:36 Abdomen/GI: Positive for abdominal pain, diarrhea, Exam: 06:36 Constitutional: This is a well developed, well nourished patient who is awake, alert, rt and in no acute distress. Head/Face: Normocephalic, atraumatic. Chest/axilla: Normal chest wall appearance and motion. Nontender with no deformity. No lesions are appreciated. Cardiovascular: Regular rate and rhythm with a normal S1 and S2. No gallops, murmurs, or rubs. Normal PMI, no JVD. No pulse deficits. Respiratory: Lungs have equal breath sounds bilaterally, clear to auscultation and percussion. No rales, rhonchi or wheezes noted. No increased work of breathing, no retractions or nasal flaring. Skin: Warm, dry with normal turgor. Normal color with no rashes, no lesions, and no evidence of cellulitis. MS/ Extremity: Pulses equal, no cyanosis. Neurovascular intact. Full, normal range of motion. 06:36 Abdomen/GI: Mild tenderness diffusely without rebound, guarding, distention, 06:55 ECG was reviewed by the Attending Physician. rt 07:41 Musculoskeletal/extremity: Circulation is intact in all extremities. Sensation intact. cirilo Compartment Syndrome exam of affected extremity: is normal. Weight bearing: is unable to bear weight, DVT Exam: No signs of deep vein thrombosis. no pain, no swelling, no tenderness, negative Homans' sign noted on exam, no appreciated bluish discoloration, no erythema, no increased warmth, Vital Signs: 06:35 BP 129 / 100; Pulse 116; Resp 18 S; Temp 98.2(O); Pulse Ox 97% on R/A; Weight 74.84 kg; jw7 Height 5 ft. 8 in. ; Pain 7/10; 07:26 BP 131 / 96; Pulse 106; Resp 18; Pulse Ox 99% on R/A; ph 08:44 Pain 2/10; ab3 09:00 BP 136 / 95; Pulse 101; Resp 12; Pulse Ox 99% on R/A; ab3 10:00 BP 110 / 86; Pulse 94; Resp 12; Temp 98.8; Pulse Ox 99% on R/A; ab3 10:30 BP 115 / 79; Pulse 95; Resp 14; Pulse Ox 98% on R/A; ab3 10:38 Pain 3/10; ab3 12:00 BP 126 / 90; Pulse 104; Resp 12; Pulse Ox 98% on R/A; ab3 06:35 Body Mass Index 25.09 (74.84 kg, 172.72 cm) jw7 06:35 Pain Scale: Adult jw7 08:44 Pain Scale: Adult ab3 10:38 Pain Scale: Adult ab3 Se[place]our Coma Score: 07:41 Eye Response: spontaneous(4). Motor Response: obeys commands(6). Verbal Response: cirilo oriented(5). Total: 15. 10:00 Eye Response: spontaneous(4). Motor Response: obeys commands(6). Verbal Response: ab3 oriented(5). Total: 15. 12:00 Eye Response: spontaneous(4). Motor Response: obeys commands(6). Verbal Response: ab3 oriented(5). Total: 15. MDM: 06:26 Patient medically screened. rt 07:41 Differential diagnosis: abnormal EKG, acute myocardial infarction, acute pericarditis, cirilo coronary artery disease chest wall pain, esophagitis, gastritis, hiatal hernia, pancreatitis, peptic ulcer disease, pulmonary embolus, stable angina, thoracic aortic disection, unstable angina. HEART Score: History: Moderately Suspicious (1), ECG: Significant ST-deviation (2), Age: > 45 and < 65 years (1), Risk Factors: > or = 3 Risk factors for atherosclerotic disease (2), [Hypercholesterolemia] [Hypertension] [+ Family HX] [Obesity]. The patient was given aspirin in the Emergency Department. ALEJANDRO Risk Score: 1 - Three or more CAD risk factors, 1- Known CAD. Data reviewed: vital signs, nurses notes, EMS record, lab test result(s), EKG, radiologic studies, CT scan, plain films. Consideration of Admission/Observation Patient was admitted/placed on observation. Escalation of care including admission/observation considered. I considered the following discharge prescriptions or medication management in the emergency department Medications were administered in the Emergency Department. See MAR. Test considered but Not performed: Ultrasound NO 2 D ECHO. Care significantly affected by the following chronic conditions: Hypertension, Obesity, KIDNEY STONES, HYPOTHYROID. 06/01 06:27 Order name: Basic Metabolic Panel; Complete Time: 07:55 rt 06/01 06:27 Order name: CBC with Diff rt 06/01 06:27 Order name: LFT's; Complete Time: 07:55 rt 06/01 06:27 Order name: Magnesium; Complete Time: 07:55 rt 06/01 06:27 Order name: Troponin HS; Complete Time: 07:55 rt 06/01 06:27 Order name: Lipase; Complete Time: 07:55 rt 04 06:27 Order name: Urinalysis w/ reflexes; Complete Time: 07:34 rt 06/01 07:36 Order name: Urine Culture EDMS 06/01 07:39 Order name: PT-INR; Complete Time: 09:06 cirilo 06/01 07:43 Order name: NT PRO-BNP; Complete Time: 07:55 EDMS 06/01 07:55 Order name: Phosphorus; Complete Time: 09:06 cirilo 06/01 10:02 Order name: CBC Smear Scan EDMS 06/01 10:54 Order name: Urinalysis w/ reflexes EDMS 06/01 10:54 Order name: CBC with Automated Diff EDMS 06/01 10:54 Order name: CBC with Automated Diff EDMS 06/01 10:54 Order name: Comprehensive Metabolic Panel EDMS 06/01 10:54 Order name: Comprehensive Metabolic Panel EDMS 06/01 10:54 Order name: Magnesium EDMS 06/01 10:54 Order name: Magnesium EDMS 06/01 10:54 Order name: NT PRO-BNP EDMS 06/01 10:54 Order name: NT PRO-BNP EDMS 06/01 10:54 Order name: Phosphorus EDMS 06/01 10:54 Order name: Phosphorus EDMS 06/01 10:54 Order name: Troponin High Sensitivity EDMS 06/01 10:54 Order name: Troponin High Sensitivity EDMS 06/01 10:54 Order name: Vancomycin Level Trough EDMS 06/01 10:54 Order name: Vancomycin Level Trough EDMS 06/01 06:27 Order name: XRAY Chest (1 view); Complete Time: 09:06 rt 06/01 06:27 Order name: CT Abd/Pelvis - IV Contrast Only; Complete Time: 09:06 rt 06/01 07:39 Order name: CT Chest For PE Angio; Complete Time: 09:06 cirilo 06/01 07:39 Order name: US Extremity Venous W Compression Cristian; Complete Time: 09:06 cirilo 06/01 10:54 Order name: CONS Physician Consult EDMS 06/01 10:54 Order name: CONS Physician Consult EDMS 06/01 10:54 Order name: CONS [facility] Cons EDMS 06/01 10:54 Order name: Physical Therapy Consult EDMS 06/01 06:27 Order name: Cardiac monitoring; Complete Time: 07:02 rt 06/01 06:27 Order name: EKG - Nurse/Tech; Complete Time: 07:02 rt 06/01 06:27 Order name: IV Saline Lock; Complete Time: 07:25 rt 06/01 06:27 Order name: Labs collected and sent; Complete Time: 07:25 rt 06/01 06:27 Order name: O2 Per Protocol; Complete Time: 07:25 rt 06/01 06:27 Order name: O2 Sat Monitoring; Complete Time: 07:26 rt 06/01 07:40 Order name: IV Saline Lock - Large Bore; Complete Time: 07:41 cirilo 06/01 07:44 Order name: Wound Care; Complete Time: 09:11 [facility] EC:55 Rate is 109 beats/min. Rhythm is regular, Sinus tachycardia with No ectopy. QRS Lott is rt Normal. [place] interval is normal. QRS interval is normal. QT interval is normal. No Q waves. Clinical impression: NSR w/ Non-specific ST/T Changes. Administered Medications: 07:52 Drug: morphine IVP or IV 2 mg IVP once over 4 mins Route: IVP; Infused Over: 4 mins; ab3 Site: right antecubital; 08:44 Follow up: Pain 2/10 Adult; Response: Adverse reaction, Physician notified; Pain is ab3 decreased; RASS: Alert and Calm (0) 10:38 Follow up: Pain 3/10 Adult; Response: Pain is unchanged, physician notified ab3 07:52 Drug: Ondansetron IVP 2 mg IVP once; over 2 minutes Route: IVP; Site: right antecubital;ab3 12:05 Follow up: Response: No adverse reaction; Nausea is decreased ab3 07:54 Drug: Famotidine IVP 20 mg IVP once; dilute with 10 mL 0.9% NaCl; give over 2 minutes ab3 Route: IVP; Site: right antecubital; 09:11 Follow up: Response: No adverse reaction ab3 07:54 Drug: Enoxaparin Sub-Q 1 mg/kg Sub-Q once Route: Sub-Q; Site: right lower abdomen; ab3 08:50 Follow up: Response: No adverse reaction ab3 08:05 CANCELLED (Patient was given 324mg ASA en route by EMS): aspirinchewable tablet 162 mg ab3 PO once 08:45 Drug: Cefepime IVPB 1 grams IVPB at 200 ml/hr once over 30 mins; (mix in NS 100 mL) ab3 Route: IVPB; Rate: 200 ml/hr; Infused Over: 30 mins; Site: right antecubital; Delivery: Primary tubing; 09:15 Follow up: Response: No adverse reaction; IV Status: Completed infusion; IV Intake: ab3 100ml 09:05 Drug: NS 0.9% with KCl IV 20 mEq/L 1000 ml IV at 125 ml/hr continuous Route: IV; Rate: ab3 125 ml/hr; Site: right antecubital; 10:37 Follow up: Response: No adverse reaction ab3 12:04 Follow up: Response: No adverse reaction; IV Status: Infusion continued upon admission ab3 09:06 Drug: Potassium Chloride IV 20 mEq IV at per protocol once; administer over 1-2 hours ab3 Route: IV; Rate: per protocol; Site: right antecubital; Delivery: Primary tubing; 12:03 Follow up: Response: No adverse reaction; IV Status: Completed infusion; IV Intake: ab3 100ml 09:35 Drug: Potassium PO Effervescent Tablet 50 mEq PO once; dissolve in 4 ounces of water or ab3 juice Route: PO; 12:05 Follow up: Response: No adverse reaction ab3 10:25 Drug: vancoMYCIN IVPB 1 grams IVPB once over 2 hrs Route: IVPB; Rate: 125 ml/hr; ab3 Infused Over: 2 hrs; Site: right antecubital; Delivery: Primary tubing; 12:03 Follow up: Response: No adverse reaction; IV Status: Infusion continued upon admission ab3 Disposition Summary: 06/02/23 07:48 Hospitalization Ordered Notes: Hospitalization Status: Inpatient Admission cirilo Provider: Cooper Boyer cha [facility] cirilo Condition: Fair cirilo Problem: new cirilo Symptoms: have improved cirilo Bed/Room Type: Standard cirilo Room Assignment: [id number](06/02/23 11:21) mc5 Diagnosis - Chest pain on breathing cirilo - Chest pain, unspecified cirilo - Pressure ulcer of sacral region, stage 4 cirilo - Abnormal electrocardiogram [ECG] [EKG] cirilo - Leakage of urinary (indwelling) catheter cirilo - Elevated white blood cell count cirilo - Hypokalemia cirilo - Osteomyelitis, unspecified - SACRAL / COCCYX cirilo Forms: - Medication Reconciliation Form cirilo - SBAR form cirilo - Leadership Thank You Letter cirilo Signatures: Dispatcher [employer] Fam Joyce MD MD cha Waits, Jodi, RN RN jw7 Janes Higginbotham MD MD rt Lauryn Wheatley mc5 Arlet Tejada, RN RN ab3 Corrections: (The following items were deleted from the chart) 06:28 06:28 BASIC METABOLIC PANEL+C.LAB.BRZ ordered. EDMS EDMS 06:28 06:28 CBC+H.LAB.BRZ ordered. EDMS EDMS 06:28 06:28 HEPATIC FUNCTION+C.LAB.BRZ ordered. EDMS EDMS 06:28 06:28 MAGNESIUM+C.LAB.BRZ ordered. EDMS EDMS 06:28 06:28 Troponin High Sensitivity+C.LAB.BRZ ordered. EDMS EDMS 06:28 06:28 CBC+H.LAB.BRZ ordered. EDMS EDMS 06:28 06:28 LIPASE+C.LAB.BRZ ordered. EDMS EDMS 06:28 06:28 Urinalysis+U.LAB.BRZ ordered. EDMS EDMS 06:28 06:28 Chest Single View+RAD.RAD.BRZ ordered. EDMS EDMS 06:28 06:28 Abdomen Pelvis W Con+CT.RAD.BRZ ordered. EDMS EDMS 07:15 06:35 PSHx: shell fish (Hypothyroidism); jw7 jw7 07:39 07:39 Chest For PE Angio+CT.RAD.BRZ ordered. EDMS EDMS 07:40 07:39 Extrem Venous W Compression Cristian+US.RAD.BRZ ordered. EDMS EDMS 07:40 07:40 PROTIME (+INR)+COAG.LAB.BRZ ordered. EDMS EDMS 07:41 07:40 PROBNP+C.LAB.BRZ ordered. EDMS EDMS 08:05 07:39 Aspirin PO Chewable Tablet 162 mg PO once ordered. cirilo ab3 11:21 07:48 cirilo mc5
[2023-06-02 07:53] LABS: Albumin 2.3 g/dL (3.4-5.0); Albumin/Globulin Ratio 0.4 (1.1-1.8); Anion Gap 9.7 mEq/L (5.0-15.0); Bilirubin Direct 0.2 mg/dL (0-0.2); Bilirubin Indirect, Calculated 0.4 mg/dL (0.2-0.8); Bilirubin Total 0.6 mg/dL (0.2-1.0); Globulin 5.9 g/dL (2.3-3.5); Potassium 2.7 mEq/L (3.5-5.1); Protein, Total 8.2 g/dL (6.4-8.2); Troponin High Sensitivity 4.7 pg/mL (<58.9)
--- NOTE | 2023-06-02 07:58 | RAD REPORT ---
EXAM DESCRIPTION: RAD - Chest Single View - 06/02/2023 7:47 am CLINICAL HISTORY: CHEST PAIN COMPARISON: <Comparisons> FINDINGS: Lines: None. Lungs: No evidence of edema or pneumonia. Pleural: No significant pleural effusions or pneumothorax. Cardiac: The heart size is within normal limits. Mediastinum: Within normal limits. Bones: No acute fractures. Other: None IMPRESSION: No acute cardiopulmonary disease.
[2023-06-02] MEDS ORDERED: CEFEPIME 1 GM/VIAL ONE (07:59)
[2023-06-02 08:10] LABS: PT Prothrombin Time 12.6 SECONDS (9.5-12.5); Protime INR 1.15
--- NOTE | 2023-06-02 08:25 | RAD REPORT ---
EXAM DESCRIPTION: CT - Chest For Pe Angio - 06/02/2023 8:10 am CLINICAL HISTORY: Chest pain;Dyspnea COMPARISON: Abdomen Pelvis W Contrast dated 04/23/2023; Chest Abdomen Pelvis W Cont dated 03/01/2023 TECHNIQUE: Dynamically enhanced axial 3 mm thick images of the chest were obtained during administra tion of <100> mL Isovue 370 IV contrast. Coronal and oblique reconstruction images were generated and reviewed. Exam utilizes a protocol for optimal evaluation of pulmonary arterial tree. Maximum intensity projections 3D imaging was utilized All CT scans are performed using dose optimization technique as appropriate and may include automated exposure control or mA/KV adjustment according to patient size. FINDINGS: Chest Wall: No suspicious thyroid nodules or pathologic lymphadenopathy. Lungs: No acute abnormality. Pleura: No significant effusions or pneumothorax. Mediastinum/moustapha: No pathologic lymphadenopathy. Pulmonary arteries/Aorta: No filling defect identified. No aortic aneurysm. Heart: No significant pericardial effusion. Normal heart size. Upper abdomen: Reference same-day CT of the abdomen Bones: No acute abnormality. IMPRESSION: Negative for pulmonary embolism. No acute findings in the chest.
--- NOTE | 2023-06-02 08:40 | RAD REPORT ---
EXAM DESCRIPTION: CTAbdomen Pelvis W Contrast - 06/02/2023 8:10 am CLINICAL HISTORY: ABD PAIN COMPARISON: Abdomen Pelvis W Contrast dated 04/23/2023; Abdomen Pelvis W Contrast dated 11/03/2015 TECHNIQUE: CT of the abdomen and pelvis was performed. All CT scans are performed using dose optimization technique as appropriate and may include automated exposure control or mA/KV adjustment according to patient size. FINDINGS: Lower chest: No acute abnormality. Liver: Hypervascular lesion in the peripheral aspect of the right hepatic lobe is unchanged and likel y reflecting a hemangioma or vascular malformation. Biliary: Cholelithiasis. No CT is acute cholecystitis. Stomach: No significant focal abnormality. Duodenum: No significant focal abnormality. Pancreas: No significant abnormality. Spleen: No significant abnormality. Adrenal: No suspicious lesions. Kidney/ureter: No hydronephrosis. No renal calculi. Too small to characterize and/or benign appearing renal lesions are noted. Retroperitoneum: No retroperitoneal adenopathy. Vascular: No aneurysm. Atherosclerosis. Bowel: No significant focal abnormality. Peritoneum: No ascites or free air. Bladder: Patton catheter in the bladder. Reproductive: No adnexal masses. Bones: Sacral decubitus ulcer with extension to the sacrum and coccyx. Remote L2 compression fracture . Other: n/a IMPRESSION: No acute intra-abdominal or pelvic finding. Sacral decubitus ulcer with presumed sacral/ coccygeal osteomyelitis.
--- NOTE | 2023-06-02 08:41 | RAD REPORT ---
EXAM DESCRIPTION: US - Extrem Venous W Compress Cristian - 06/02/2023 8:33 am CLINICAL HISTORY: Pain;Swelling COMPARISON: EXT VENOUS W COMPRESSION CRISTIAN dated 06/24/2014 TECHNIQUE: Real-time sonographic evaluation of the lower extremity deep venous systems was performed using color Doppler, grayscale, and compression. FINDINGS: Bilateral lower extremities. Normal compressibility, flow augmentation, phasic flow and spontaneous flow is identified in both the left and right lower extremity deep venous systems. No intraluminal filling defects seen. IMPRESSION: No DVT in either lower extremity.
[2023-06-02] MEDS ORDERED: KCL 20 MEQ/100 mL IVPB 100 ML IV ONE (08:55)
[2023-06-02] MEDS ORDERED: NS KCL 20MEQ 1,000 ML IV ONE (08:59)
[2023-06-02] MEDS ORDERED: POTASSIUM 25 MEQ EFFERV TAB ONE (09:29)
[2023-06-02 10:01] LABS: Blood Morphology Comment NOT SEEN (NOT SEEN); Platelet Estimate INCR; White Blood Cell Scan OK (OK)
[2023-06-02] MEDS ORDERED: VANCOMYCIN 1 GM/VIAL ONE (10:17)
[2023-06-02] MEDS ORDERED: NA CHLORIDE 0.9% 250 ML ONE (10:20)
[2023-06-02] MEDS ORDERED: ONDANSETRON 4 MG/2 ML VIAL IV PRN (10:47)
--- NOTE | 2023-06-02 12:37 | P.HP ---
Certification for Inpatient Patient admitted to: Inpatient With expected LOS: >2 Midnights Patient will require the following post-hospital care: None Practitioner: I am a practitioner with admitting privileges, knowledge of patient current condition, hospital course, and medical plan of care. Services: Services provided to patient in accordance with Admission requirements found in Title 42 Section 412.3 of the Code of Federal Regulations Patient History Date of Service: 06/02/23 Reason for admission: Chest pain rule out acute coronary syndrome History of Present Illness: Patient is a 63-year-old female who comes to the hospital with chest discomfort. Pain was mainly in the sternal region but it pretty much went away by the time I got this year. She has a history of rheumatoid arthritis as well as osteoarthritis. She has not had any treatment for rheumatoid arthritis in a very long time. She suffers with chronic pain 6-7 out of 10 almost all the time. She states that her pain was a little worse out of proportion to what it normally is. She decided to come into the emergency room for further evaluation. In the ER she had extensive workup including CT imaging which did not reveal any pulmonary embolism. Patient also had CT of the abdomen and pelvis and once again reveals findings that are suggestive of sacral osteomyelitis. These findings have been present since February. Otherwise, patient with no other abnormal findings. Decision was made made to admit the patient for inpatient hospitalization. Will go ahead and start patient on IV antibiotics and proceed from there. Allergies ampicillin Allergy (Verified 10/11/16 09:29) Anaphylaxis azithromycin Allergy (Verified 10/11/16 09:29) Hives lisinopril Allergy (Verified 10/11/16 09:29) kidney failure Penicillins Allergy (Verified 02/08/23 08:29) Hives/Rash shellfish derived Adverse Reaction (Verified 02/08/23 08:29) Anaphylaxis Home Medications: Amlodipine Besylate [Norvasc] 5 mg PO DAILY 11/29/15 Clonidine HCl [Catapres*] 0.2 mg PO DAILY 11/29/15 Gabapentin [Neurontin] 300 mg PO BID 11/29/15 Levothyroxine [Synthroid*] 100 mcg PO [id number] 11/29/15 Rosuvastatin [Crestor*] 10 mg PO BEDTIME 11/29/15 Triamterene/Hydrochlorothiazid [Triamterene-Hctz 37.5-25 mg Cp] 1 each PO DAILY 11/29/15 Cyclobenzaprine HCl [Flexeril] 5 mg PO Q8H PRN 06/02/23 Hydrocodone 5/APAP 325 [[place] 5/325] 1 tab PO Q6H PRN 06/02/23 Montelukast [Singulair*] 10 mg PO BEDTIME 06/02/23 - Past Medical/Surgical History Diabetic: No -: Hypertension -: Dyslipidemia -: Rheumatoid arthritis -: Osteoarthritis -: Sacral decubitus ulcer -: Right Knee replacement -: Debridement of sacral wound - Family History Father Medical History: Hypertension, Cancer Notes: prostate cancer Mother Medical History: Hypertension, Stroke - Social History Smoking Status: Former smoker Alcohol use: No CD- Drugs: No Caffeine use: No Review of Systems 10-point ROS is otherwise unremarkable Physical Examination - Vital Signs Temperature: 98 F Blood Pressure: 140/80 Pulse: 90 Respirations: 20 Pulse Ox (%): 95 - Physical Exam General: Alert, In no apparent distress, Oriented x3 HEENT: Atraumatic, PERRLA, Mucous membr. moist/pink, EOMI, Sclerae nonicteric Neck: Supple, 2+ carotid pulse no bruit, No LAD, Without JVD or thyroid abnormality Respiratory: Clear to auscultation bilaterally, Normal air movement Cardiovascular: Regular rate/rhythm, Normal S1 S2, Systolic murmur Gastrointestinal: Normal bowel sounds, Soft and benign, Non-distended, No tenderness Musculoskeletal: No clubbing, No swelling, Tenderness (sacral region) Integumentary: No rashes Neurological: Normal speech, Cranial nerves 3-12 intact, Normal affect, Abnormal gait, Abnormal strength, Abnormal tone Lymphatics: No axilla or inguinal lymphadenopathy Urinary: Patton catheter - Studies Laboratory Data (last 24 hrs) 06/02/23 06/02/23 06/02/23 07:50 06:54 06:54 WBC 16.60 H Hgb 11.6 L Hct 35.6 L Plt Count 511 H PT 12.6 H INR 1.15 Sodium Potassium BUN Creatinine Glucose Phosphorus 2.4 L Magnesium Total Bilirubin AST ALT Alkaline Phosphatase Lipase 06/02/23 06:54 WBC Hgb Hct Plt Count PT INR Sodium 132 L Potassium 2.7 L BUN 19 H Creatinine 0.54 L Glucose 143 H Phosphorus Magnesium 2.0 Total Bilirubin 0.6 AST 16 ALT 11 L Alkaline Phosphatase 107 Lipase 25 Assessment & Plan - Problems (Diagnosis) (1) Chest pain, rule out acute myocardial infarction Current Visit: Yes Status: Acute (2) Leukocytosis Current Visit: Yes Status: Acute (3) Hypothyroid Current Visit: No Status: Acute (4) Hyperlipidemia Current Visit: No Status: Acute (5) Pressure ulcer of sacral region, stage 4 Current Visit: No Status: Acute (6) HTN (hypertension) Current Visit: No Status: Acute (7) Hypokalemia Current Visit: Yes Status: Acute (8) Microcytic anemia Current Visit: Yes Status: Acute (9) Thrombocytosis Current Visit: Yes Status: Acute - Plan Plan: 1. Patient with chest pain, rule out acute coronary syndrome. Patient's troponins are negative. Patient's chest pain has resolved. Most likely related to costochondritis from arthritic history. Patient with a history of osteoarthritis and rheumatoid arthritis. Will go ahead and treat with anti- inflammatory. Check serial troponins and EKG. Outpatient cardiac workup if labs are negative and EKG unremarkable. 2. Stage IV sacral decubitus wound; questionable osteomyelitis. Continue with IV antibiotics and wound care. Spoke with general surgery Dr. Perry and he recommends to continue with wound care as ordered. Patient will get wound cleansed by Anitha, and Santyl to the wound. Continue wound VAC placement. 3. History of rheumatoid arthritis/osteoarthritis; patient needs to follow-up with rheumatology. 4. History of hypertension and dyslipidemia; continue with blood pressure control and statin therapy 5. Gi and DVT prophylaxis Discharge Plan: Home Plan to discharge in: 24 Hours - Advance Directives Does patient have a Living Will: No Does patient have a Durable POA for Healthcare: No - Code Status/Comfort Care Code Status Assessed: Yes Code Status: Full Code Critical Care: No Time Spent Managing PTS Care (In Minutes): 45
[2023-06-02] MEDS: AMPICILLIN/SULBACT 3 GM in NA CHLORIDE 0.9% 100 ML IVPB SCH (13:41)
[2023-06-02] MEDS: VANCOMYCIN 750 MG in NA CHLORIDE 0.9% 150 ML IVPB ONE (13:41)
[2023-06-02] MEDS: NA CHLORIDE 0.9% 1,000 ML IV SCH (13:41)
[2023-06-02 14:32] VITALS: BMI 25.2
[2023-06-02] MEDS: ACETAMINOPHEN 500 MG TAB PO PRN (14:42)
[2023-06-02] MEDS: KCL 20 MEQ/100 mL IVPB 20 MEQ/100 ML BAG IV SCH (15:17)
[2023-06-02] MEDS: POTASS/SODIUM PHOSPHATE 1 PKT POWD.PACK PO SCH (15:17)
[2023-06-02] MEDS ORDERED: HYDROCODONE/APAP 5/325 MG TAB PO PRN ×2 (21:24→22:25)
[2023-06-02] MEDS: VANCOMYCIN 1.25 GM in NA CHLORIDE 0.9% 250 ML IVPB SCH (23:10)
[2023-06-03 03:42] LABS: Absolute Basophils 0.1 K/uL (0-0.5); Absolute Eosinophils 0.1 K/uL (0-0.5); Absolute Lymphocytes (CBC) 1.5 K/uL (0.7-4.9); Absolute Monocytes 0.6 K/uL (0.1-1.3); Absolute Neutrophil 9.6 K/uL (1.8-8.0); Hematocrit 29.8 % (36.0-45.0); Hemoglobin 9.7 g/dL (12.0-15.0); Lymphocytes % 12.1 % (15.3-44.8); MCH 25.3 pg (27.0-35.0); MCHC 32.4 g/dL (32.0-36.0); MCV 78.2 fL (80-100); MPV 8.3 fL (7.6-11.3); Monocytes % 5.4 % (3.3-12.3); Neutrophils % 80.5 % (41.7-73.7); Platelets 421 thou/uL (152-406); RBC Red Blood Cell Count 3.81 M/uL (3.86-4.86); Red Cell Distribution Width 17.3 % (12.1-15.2)
[2023-06-03 04:00] LABS: AST/SGOT 16 U/L (15-37); Albumin 1.9 g/dL (3.4-5.0); Albumin/Globulin Ratio 0.4 (1.1-1.8); Alkaline Phosphatase 88 U/L (45-117); Anion Gap 8.3 mEq/L (5.0-15.0); BUN Blood Urea Nitrogen 12 mg/dL (7-18); Bicarbonate 26 mEq/L (21-32); Bilirubin Total 0.5 mg/dL (0.2-1.0); Globulin 4.7 g/dL (2.3-3.5); Glomerular Filtration Rate 115 ml/min (=/>90); Glucose Level 100 mg/dL (74-106); Magnesium 1.9 mg/dL (1.6-2.4); NT PRO-BNP 214 pg/mL (<125); Phosphorus 2.1 mg/dL (2.5-4.9); Potassium 4.3 mEq/L (3.5-5.1); Protein, Total 6.6 g/dL (6.4-8.2); Sodium Level 135 mEq/L (136-145); Troponin High Sensitivity 4.6 pg/mL (<58.9)
[2023-06-03 04:06] LABS: ALT/SGPT < 10 U/L (13-56)
[2023-06-03] MEDS: LEVOTHYROXINE SOD 0.1 MG TAB PO SCH (05:02)
--- NOTE | 2023-06-03 07:19 | P.PN ---
Subjective Date of Service: 06/03/23 Chief Complaint: Chest pain rule out acute coronary syndrome Admitted for sacral osteomyelitis, stage IV sacral wound, wound care, patient Dr. Perry, history of rheumatoid arthritis, patient disabled, total care plan for IV antibiotics,, wound eval, possible plan to discharge to LTAC for IV antibiotic - Physical Exam General: Alert, In no apparent distress, Oriented x3 HEENT: Atraumatic, PERRLA, Mucous membr. moist/pink, EOMI, Sclerae nonicteric Neck: Supple, 2+ carotid pulse no bruit, No LAD, Without JVD or thyroid abnormality Respiratory: Clear to auscultation bilaterally, Normal air movement Cardiovascular: Regular rate/rhythm, Normal S1 S2, Systolic murmur Gastrointestinal: Normal bowel sounds, Soft and benign, Non-distended, No tenderness Musculoskeletal: No clubbing, No swelling, Tenderness (sacral region) stage IV sacral wound Integumentary: No rashes, sacral wound, dry dressing Neurological: Normal speech, Cranial nerves 3-12 intact, Normal affect, Abnormal gait, Abnormal strength, Abnormal tone Lymphatics: No axilla or inguinal lymphadenopathy Urinary: Patton catheter <Kimberli Magana - Last Filed: 06/03/23 09:14> Date of Service: 06/03/23 <Cooper Boyer - Last Filed: 06/04/23 11:33> Review of Systems per HPI <Kimberli Magana - Last Filed: 06/03/23 09:14> Physical Examination - Vital Signs Temperature: 97.0 F Blood Pressure: 108/59 Pulse: 80 Respirations: 18 Pulse Ox (%): 98 - Studies Laboratory Data (last 24 hrs) 06/02/23 06/02/23 06/02/23 07:50 06:54 06:54 WBC 16.60 H Hgb 11.6 L Hct 35.6 L Plt Count 511 H PT 12.6 H INR 1.15 Sodium Potassium BUN Creatinine Glucose Phosphorus 2.4 L Magnesium Total Bilirubin AST ALT Alkaline Phosphatase Lipase 06/02/23 06:54 WBC Hgb Hct Plt Count PT INR Sodium 132 L Potassium 2.7 L BUN 19 H Creatinine 0.54 L Glucose 143 H Phosphorus Magnesium 2.0 Total Bilirubin 0.6 AST 16 ALT 11 L Alkaline Phosphatase 107 Lipase 25 <Kimberli Magana - Last Filed: 06/03/23 09:14> Assessment And Plan - Plan Assessment & Plan - Problems (Diagnosis) (1) Chest pain, rule out acute myocardial infarction Current Visit: Yes Status: Acute (2) Leukocytosis Current Visit: Yes Status: Acute (3) Hypothyroid Current Visit: No Status: Acute (4) Hyperlipidemia Current Visit: No Status: Acute (5) Pressure ulcer of sacral region, stage 4 Suspect osteomyelitis of the sacrum with leukocytosis Current Visit: No Status: Acute Questionable osteomyelitis, follows Dr. Perry with wound care Plan for IV antibiotics, plan to discharge to LTAC for IV antibiotic Total care per patient secondary to rheumatoid arthritis, bedridden (6) HTN (hypertension) Current Visit: No Status: Acute (7) Hypokalemia Current Visit: Yes Status: Acute (8) Microcytic anemia Current Visit: Yes Status: Acute Trend H&H transfuse hemoglobin less than 8 (9) Thrombocytosis Current Visit: Yes Status: Acute (10) History of hypertension Current Visit: Yes Status: Acute (11) Family history of dyslipidemia Current Visit: Yes Status: Acute - Plan Plan: 1. Patient with chest pain, rule out acute coronary syndrome. Patient's troponins are negative. Patient's chest pain has resolved. Most likely related to costochondritis from arthritic history. Patient with a history of osteoart hritis and rheumatoid arthritis. Will go ahead and treat with anti- inflammatory. Check serial troponins and EKG. Outpatient cardiac workup if labs are negative and EKG unremarkable. 2. Stage IV sacral decubitus wound; questionable osteomyelitis. Continue with IV antibiotics and wound care. Spoke with general surgery Dr. Perry and he recommends to continue with wound care as ordered. Patient will get wound cleansed by Vashe, and Santyl to the wound. Continue wound VAC placement. 3. History of rheumatoid arthritis/osteoarthritis; patient needs to follow-up with rheumatology. 4. Discharge Plan: Home Plan to discharge in: 24 Hours Discharge Plan: LTAC - Code Status/Comfort Care Code Status: Full Code Critical Care: No Time Spent Managing PTS Care (In Minutes): 35 <Kimberli Magana - Last Filed: 06/03/23 09:14> - Current Problems (Diagnosis) (1) Chest pain, rule out acute myocardial infarction Current Visit: Yes Status: Acute (2) Leukocytosis Current Visit: Yes Status: Acute (3) Hypothyroid Current Visit: No Status: Acute (4) Hyperlipidemia Current Visit: No Status: Acute (5) Pressure ulcer of sacral region, stage 4 Current Visit: No Status: Acute (6) HTN (hypertension) Current Visit: No Status: Acute (7) Hypokalemia Current Visit: Yes Status: Acute (8) Microcytic anemia Current Visit: Yes Status: Acute (9) Thrombocytosis Current Visit: Yes Status: Acute <Cooper Boyer - Last Filed: 06/04/23 11:33> Date of Service: 06/03/23 Patient was seen and examined. Events of the last 24 hours have been noted. S poke with with LEANN regarding patient's clinical picture after evaluating and examining the patient independently. I performed a substantial part of the MDM during this patient's care today. I personally made or approved the documented management plan and acknowledge its risk of complications. I agree with the findings and documentation provided in the LEANN's notes. patient is feeling better. Arranging for IV antibiotics and possible LTAC. However, patient is needing multiple antibiotics and aggressive wound care. Patient also needing physical therapy as she has been nonambulatory and has contractures. Will see if we get approval for LTAC. <Cooper Boyer - Last Filed: 06/04/23 11:33>
[2023-06-03] MEDS: AMLODIPINE 10 MG TAB PO SCH (08:33)
[2023-06-03] MEDS: GABAPENTIN 300 MG CAP PO SCH (08:33)
[2023-06-03] MEDS: MAXZIDE (HCTZ 25/TRIAMTERENE 37.5MG) TAB PO SCH (08:33)
[2023-06-03] MEDS: cloNIDine HCL 0.1 MG TAB PO SCH (08:34)
[2023-06-03] MEDS: ENOXAPARIN 40 MG/0.4 ML SQ SCH (08:35)
[2023-06-03] MEDS: HYDROCODONE/APAP 5/325 MG TAB PO PRN (08:40)
[2023-06-03] MEDS ORDERED: POTASS/SODIUM PHOSPHATE 1 PKT POWD.PACK PO SCH (09:00)
[2023-06-03] MEDS: CYCLOBENZAPRINE 10 MG TAB PO PRN (17:23)
[2023-06-03] MEDS: MONTELUKAST 10 MG TAB PO SCH (21:01)
[2023-06-03] MEDS: ROSUVASTATIN 10 MG TAB PO SCH (21:01)
[2023-06-04] MEDS: POTASS/SODIUM PHOSPHATE 1 PKT POWD.PACK PO SCH (08:56)
--- NOTE | 2023-06-04 09:26 | P.PN ---
Subjective Date of Service: 06/04/23 Chief Complaint: Chest pain rule out acute coronary syndrome Subjective: Other (c/o pain all over) <Daja Traore - Last Filed: 06/04/23 11:54> Date of Service: 06/04/23 <Magen Warren C - Last Filed: 06/04/23 21:24> Review of Systems 10-point ROS is otherwise unremarkable Respiratory: As per HPI Cardiovascular: As per HPI Musculoskeletal: As per HPI Integumentary: As per HPI Neurological: As per HPI <Daja Traore - Last Filed: 06/04/23 11:54> Physical Examination - Vital Signs Temperature: 97.1 F Blood Pressure: 120/67 Pulse: 65 Respirations: 18 Pulse Ox (%): 99 - Physical Exam General: Alert, In no apparent distress, Oriented x3 HEENT: Atraumatic, Normocephalic Neck: Supple Respiratory: Normal air movement Cardiovascular: Normal pulses, Regular rate/rhythm Capillary refill: <2 Seconds Gastrointestinal: Soft and benign Musculoskeletal: Other (pain to joints. pain with movement) Integumentary: Skin breakdown, Other (sacral wound, will have wound vac placed again post negative culture report) Neurological: Abnormal tone Lymphatics: No axilla or inguinal lymphadenopathy External genitalia: Deferred Rectal: Deferred <Daja Traore - Last Filed: 06/04/23 11:54> Assessment And Plan - Plan - Problems (Diagnosis) (1) Chest pain, rule out acute myocardial infarction Current Visit: Yes Status: Acute (2) Leukocytosis Current Visit: Yes Status: Acute (3) Hypothyroid Current Visit: No Status: Acute (4) Hyperlipidemia Current Visit: No Status: Acute (5) Pressure ulcer of sacral region, stage 4 Current Visit: yes Status: Acute (6) HTN (hypertension) Current Visit: No Status: Acute (7) Hypokalemia Current Visit: Yes Status: Acute (8) Microcytic anemia Current Visit: Yes Status: Acute (9) Thrombocytosis Current Visit: Yes Status: Acute (10) History of hypertension Current Visit: Yes Status: Acute (11) Family history of dyslipidemia Current Visit: Yes Status: Acute - Plan Plan: 1. Patient with chest pain, rule out acute coronary syndrome. Patient's troponins are negative. Patient's chest pain has resolved. Most likely related to costochondritis from arthritic history. Patient with a history of osteoarthritis and rheumatoid arthritis. Will go ahead and treat with anti- inflammatory. Check serial troponins and EKG. Outpatient cardiac workup if labs are negative and EKG unremarkable. 2. Stage IV sacral decubitus wound; questionable osteomyelitis. Continue with IV antibiotics and wound care. Spoke with general surgery Dr. Perry and he recommends to continue with wound care as ordered. Patient will get wound cleansed by Anitha, and Cintiayl to the wound. Continue wound VAC placement when wound cultures negative, Consult ID 3. History of rheumatoid arthritis/osteoarthritis; patient needs to follow-up with rheumatology. <Daja Traore - Last Filed: 06/04/23 11:54> - Plan Pt seen and examined. I agree with the note by the HUMAN RESOURCES RECEPTIONIST. Gen surgeon suggest that pt has chronic osteomyelitis. Will consult ID for input. Cardiac work up is negative. <Magen Warren - Last Filed: 06/04/23 21:24>
--- NOTE | 2023-06-04 09:28 | P.CNS ---
Date of Consult: 06/04/23 Reason for Consult: sacral osteomyelitis Chief Complaint: Chest pain rule out acute coronary syndrome History of Present Illness: Patient is a 63-year-old male with a past medical history as listed below who presented to the ED with complaints of chest pain. CT chest no evidence of pulmonary embolism. CT abdomen pelvis showing sacral osteomyelitis, findings present since February. Patient denies any senior care IV antibiotic therapy for the treatment of osteomyelitis in the past. Allergies ampicillin Allergy (Verified 10/11/16 09:29) Anaphylaxis azithromycin Allergy (Verified 10/11/16 09:29) Hives lisinopril Allergy (Verified 10/11/16 09:29) kidney failure Penicillins Allergy (Verified 02/08/23 08:29) Hives/Rash shellfish derived Adverse Reaction (Verified 02/08/23 08:29) Anaphylaxis Home Medications: Amlodipine Besylate [Norvasc] 5 mg PO DAILY 11/29/15 Clonidine HCl [Catapres*] 0.2 mg PO DAILY 11/29/15 Gabapentin [Neurontin] 300 mg PO BID 11/29/15 Levothyroxine [Synthroid*] 100 mcg PO [id number] 11/29/15 Rosuvastatin [Crestor*] 10 mg PO BEDTIME 11/29/15 Triamterene/Hydrochlorothiazid [Triamterene-Hctz 37.5-25 mg Cp] 1 each PO DAILY 11/29/15 Cyclobenzaprine HCl [Flexeril] 5 mg PO Q8H PRN 06/02/23 Hydrocodone 5/APAP 325 [[place] 5/325] 1 tab PO Q6H PRN 06/02/23 Montelukast [Singulair*] 10 mg PO BEDTIME 06/02/23 - Past Medical/Surgical History Diabetic: No -: Hypertension -: Dyslipidemia -: Rheumatoid arthritis -: Osteoarthritis -: Sacral decubitus ulcer -: Right Knee replacement -: Debridement of sacral wound - Family History Father Medical History: Hypertension, Cancer Notes: prostate cancer Mother Medical History: Hypertension, Stroke - Social History Smoking Status: Unknown if ever smoked Alcohol use: No CD- Drugs: No Caffeine use: No Place of Residence: Home Review of Systems 10-point ROS is otherwise unremarkable Physical Examination Temp Pulse Resp BP Pulse Ox 97.1 F 65 18 120/67 99 06/04/23 04:00 06/04/23 04:00 06/04/23 04:00 06/04/23 04:00 06/04/23 04:00 General: Alert, In no apparent distress, Oriented x3 HEENT: Atraumatic, Normocephalic Respiratory: Clear to auscultation bilaterally, Normal air movement, Other (unlabored respirations on room air) Cardiovascular: No edema, Regular rate/rhythm Gastrointestinal: Normal bowel sounds, Soft and benign, Non-distended Integumentary: Pressure ulcer (sacrum stage 4) Urinary: Patton catheter Laboratory data -Reviewed Microbiology data -Reviewed Imagings Data: -Reviewed Conclusions/Impression: Problem list Sacral osteomyelitis Urinary tract infection Chest pain Hypertension Rheumatoid arthritis Mild protein calorie malnutrition Sacral osteomyelitis Sacral pressure injury stage IV -Patient is currently on Unasyn and vancomycin. - Noted penicillin allergy however no adverse reaction to Unasyn at this time. --> Recommend switch to Meropenem IV. - has been seeing Dr. Perry as outpatient for wound care. - She reports wound vac has been removed x 3 weeks Leukocytosis improving Afebrile Urinary tract infection -Urine culture 06/01: Citrobacter amalonaticus - Patton catheter since February - catheter replaced 05/27. Recommendations -Sacral osteomyelitis: continue antibiotic therapy for 6 weeks. -Patient has history of MRSA continue with vancomycin - continue with meropenem. - obtain wound culture for targeted antimicrobial therapy. -Wound care per Dr. Perry -Monitor CBC BMP and Vanco troughs -Pressure offloading measures -Continue supportive care Case discussed with Dr. JosephN
--- NOTE | 2023-06-04 12:48 | EKG ---
Test Date: 2023-06-02 Test Time: 06:48:01 Mixing Machine Tender Cork Rod: CHRISTINA MEASUREMENT RESULTS: Intervals: Rate: 109 HI: 142 QRSD: 86 QT: 318 QTc: 428 [place]: P: 48 HI: 142 QRS: -22 T: 153 INTERPRETIVE STATEMENTS: Sinus tachycardia ST & T wave abnormality, consider lateral ischemia Abnormal ECG Compared to ECG 11/20/2016 10:29:40 ST (T wave) deviation now present Possible ischemia now present Sinus bradycardia no longer present Left ventricular hypertrophy no longer present Electronically Signed On 06-04-23 12:42:25 CDT by Jonathan Bertrand
[2023-06-04] MEDS: Meropenem 1,000 MG in NA CHLORIDE 0.9% 100 ML IV SCH (12:49)
--- NOTE | 2023-06-04 14:20 | CON ---
Date of Consultation: 06/02/2023 Reason For Consultation: Infected sacral decubitus with osteomyelitis. History Of Present Illness: The patient is a 63-year-old female who came into the hospital on with chief complaint of chest pain, midsternal, radiating to the back. She did have 1 episode of fever last week, was given Tylenol and fever subsided. She denies any new complaints with regard to her sacral decubitus. However, she did have a CAT scan of the abdomen and pelvis done which showed f indings concerning for an osteomyelitis of the sacrococcygeal region and therefore I was called. I s poke to Dr. Boyer on Sunday about the findings and I recommended the Wound Care order as we were [facility], which was Santyl with wet to dry with Vashe. The patient currently is awake, alert. No acute complaints. She said that she had a similar pain long time ago and she does not related to food intake. She does not have currently any chest pain, fever, or chills. Review of Systems: Otherwise unremarkable. Past Medical History: Significant for hypertension, dyslipidemia, osteoarthritis, rheumatoid arthrit is, and sacral decubitus ulcer. Past Surgical History: Significant for right knee replacement and debridement of the sacral wound do ne by me back in January of last year. Allergies: INCLUDE AMPICILLIN, AZITHROMYCIN, LISINOPRIL, PENICILLIN, AND SHELLFISH. Social History: The patient used a former smoker. Does not drink alcohol. Family History: Significant for hypertension, prostate cancer, and stroke. Physical Examination: Vital Signs: Currently are stable. She is afebrile. General: She is awake, alert, oriented x3. Head and Neck: No masses. Chest: Clear. Heart: S1, S2. Abdomen: Soft. Extremities: Neurovascularly intact. On the sacral region, there is approximately a 6 x 8 cm stage III sacral decubitus with relatively good granulation tissue. There is however some fibrin present a s well. There is no purulent discharge. There is no surrounding erythema, warmth, or edema. Laboratory Data: Reviewed. White count on admission was 16.6, currently 12,000 and the left shift h as slightly improved as well. Platelets are down to 421. CT scan of the abdomen and pelvis reviewed with Dr. Urias. The findings of sacrococcygeal osteomyelitis appear to be unchanged from a previous CT scan done in March. There is no abscess. There is no other acute findings noted on the CT sc an. Please note, the patient had EKG and troponin followed and they were essentially normal. Her ur ine cultures are growing Citrobacter. Sensitivities reviewed. Assessment: A 63-year-old female with multiple medical problems with probable infected sacral decubi tus with possible acute or chronic osteomyelitis as well as urinary tract infection. Recommendations: We will await ID evaluation and recommendations, but at this time from my point of view, the patient needs local wound care and I would recommend wet-to-dry Vashe with Santyl as the pa tient has been receiving. I would hold off on the wound VAC at this time. Make sure the patient is on appropriate antibiotics for the Citrobacter for her urine infection. For the bone infection of va ncomycin should be appropriate. The patient currently is on Unasyn and vancomycin. We will follow t his patient while in the hospital. I will discuss the case with the hospitalist as well as Infectiou s Disease once they have evaluated the patient. The patient may benefit from LTAC referral and then I can follow her up as an outpatient in the clinic. LIAM/MODL Voice ID: [id number] Report ID: [id number]
[2023-06-04] MEDS: Meropenem 1000 MG/VIAL IV ONE (15:49)
[2023-06-04] MEDS: COLLAGENASE 30 GM OINTMENT TOP SCH (21:03)
[2023-06-04] MEDS: VANCOMYCIN 1.5 GM in NA CHLORIDE 0.9% 500 ML IVPB SCH (21:03)
[2023-06-04] MEDS: JUVEN PACKET PO SCH (21:05)
--- NOTE | 2023-06-05 09:18 | P.PN ---
Infectious Disease Progress Note Chief Complaint: Chest pain rule out acute coronary syndrome Subjective: Patient seen and examined at bedside. In no apparent distress. + generalized pain, chronic No acute events overnight. Physical Examination Temp Pulse Resp BP Pulse Ox 97.7 F 79 18 119/74 98 06/05/23 08:00 06/05/23 08:00 06/05/23 08:00 06/05/23 08:00 06/05/23 08:00 General: Alert, In no apparent distress, Oriented x3 HEENT: Atraumatic, Normocephalic Respiratory: Clear to auscultation bilaterally, Normal air movement, Other (unlabored respirations on room air) Cardiovascular: No edema, Regular rate/rhythm Gastrointestinal: Normal bowel sounds, Soft and benign, Non-distended Integumentary: Pressure ulcer sacrum stage 4. Left heel DTI. Urinary: Patton catheter Laboratory data -Reviewed Microbiology data -Reviewed Imagings Data: -Reviewed Assessment and Plan Problem list Sacral osteomyelitis Urinary tract infection Chest pain Hypertension Rheumatoid arthritis Mild protein calorie malnutrition Sacral osteomyelitis Sacral pressure injury stage IV -Currently on Meropenem and Vancomycin - has been seeing Dr. Perry as outpatient for wound care. Leukocytosis improving Afebrile Urinary tract infection -Urine culture 06/01: Citrobacter amalonaticus * update 06/04: pseudomonas aeruginosa - currently on meropenem - Patton catheter since February - catheter replaced 05/27. Recommendations -Sacral osteomyelitis, chronic. Per Dr. Perry, findings of sacral osteomyelitis not new. patient has been treated in the past. In event patient has received treatment for sacral osteo in the past, recommend continuing antibiotic therapy to treat CAUTI (POA) for 7 days. -> Consider switch to Ciprofloxacin 750mg PO BID upon discharge to complete 7 days antibiotics for CAUTI. Urinary catheter replaced 05/27. -Wound care per Dr. Perry -Pressure offloading measures. -Monitor CBC BMP -Continue supportive care Case discussed with Dr. Joseph,N
--- NOTE | 2023-06-05 09:42 | P.PN ---
Subjective Date of Service: 06/05/23 Chief Complaint: Chest pain rule out acute coronary syndrome Subjective: Tolerating diet (no c/o except joint stiffness/pain) <Daja Traore - Last Filed: 06/05/23 09:37> Date of Service: 06/05/23 <Magen Warren C - Last Filed: 06/05/23 14:53> Review of Systems 10-point ROS is otherwise unremarkable General: As per HPI Cardiovascular: As per HPI Musculoskeletal: As per HPI Integumentary: As per HPI <Daja Traore - Last Filed: 06/05/23 09:37> Physical Examination - Vital Signs Temperature: 97.7 F Blood Pressure: 119/74 Pulse: 79 Respirations: 18 Pulse Ox (%): 98 - Physical Exam General: Alert, In no apparent distress, Oriented x3 HEENT: Atraumatic, Normocephalic Neck: 2+ carotid pulse no bruit, JVD not distended Respiratory: Normal air movement Cardiovascular: No edema, Normal pulses, Regular rate/rhythm Capillary refill: <2 Seconds Gastrointestinal: Soft and benign Musculoskeletal: Other (stiff to all joints, has not stood x 8 years, has shahriar lift at home, uses to get OOB two to three times weekly) Integumentary: Pressure ulcer (clean, tunneled without smell or foul discharged, culture ordered yesterday, obtained on assessment today) Neurological: Normal speech, Abnormal tone Lymphatics: No axilla or inguinal lymphadenopathy External genitalia: Deferred Rectal: Deferred <Daja Traore - Last Filed: 06/05/23 09:37> Assessment And Plan - Plan - Problems (Diagnosis) (1) Chest pain, rule out acute myocardial infarction Current Visit: Yes Status: Acute (2) Leukocytosis Current Visit: Yes Status: Acute (3) Hypothyroid Current Visit: No Status: Acute (4) Hyperlipidemia Current Visit: No Status: Acute (5) Pressure ulcer of sacral region, stage 4 Current Visit: yes Status: Acute (6) HTN (hypertension) Current Visit: No Status: Acute (7) Hypokalemia Current Visit: Yes Status: Acute (8) Microcytic anemia Current Visit: Yes Status: Acute (9) Thrombocytosis Current Visit: Yes Status: Acute (10) History of hypertension Current Visit: Yes Status: Acute (11) Family history of dyslipidemia Current Visit: Yes Status: Acute - Plan Plan: 1. Patient with chest pain, rule out acute coronary syndrome. Patient's troponins are negative. Patient's chest pain has resolved. Most likely related to costochondritis from arthritic history. Patient with a history of osteoarthritis and rheumatoid arthritis. Will go ahead and treat with anti- inflammatory. Check serial troponins and EKG. Outpatient cardiac workup if labs are negative and EKG unremarkable. 2. Stage IV sacral decubitus wound; questionable osteomyelitis. Continue with IV antibiotics and wound care. Spoke with general surgery Dr. Perry and he recommends to continue with wound care as ordered. Patient will get wound cleansed by Anitha, and Cintiayl to the wound. Continue wound VAC placement when wound cultures negative, Consult ID 3. History of rheumatoid arthritis/osteoarthritis; patient needs to follow-up with rheumatology. 4. UTI - Urine culture 06/01: Citrobacter amalonaticus * update 06/04: pseudomonas aeruginosa currently on meropenem and vanc. Will request PICC for retirement abx at SNF - Patton catheter since February - catheter replaced 05/27. <Daja Traore - Last Filed: 06/05/23 09:37> - Plan Pt seen and examined. I agree with the note by the UROLOGY TEACHER. Will continue iv abx for UTI. Pt does not have acute osteomyelitis. Will be treated for UTI. Pt will need SNF placement. <Magen Warren - Last Filed: 06/05/23 14:53>
[2023-06-05] MEDS: Mupirocin NASAL 2 APPL/1 GM TUBE NAS SCH (11:17)
[2023-06-05 11:31] LABS: Absolute Lymphocytes (CBC) 1.3 K/uL (0.7-4.9); Absolute Monocytes 0.4 K/uL (0.1-1.3); Absolute Neutrophil 6.3 K/uL (1.8-8.0); Basophils % 0.5 % (0-1.3); Eosinophils % 0.6 % (0-4.4); Hematocrit 29.8 % (36.0-45.0); Hemoglobin 9.6 g/dL (12.0-15.0); Lymphocytes % 15.7 % (15.3-44.8); MCH 25.1 pg (27.0-35.0); MCHC 32.1 g/dL (32.0-36.0); MCV 78.3 fL (80-100); MPV 7.9 fL (7.6-11.3); Monocytes % 4.8 % (3.3-12.3); Neutrophils % 78.4 % (41.7-73.7); Platelets 358 thou/uL (152-406); Red Cell Distribution Width 17.4 % (12.1-15.2)
[2023-06-05 11:56] LABS: C-Reactive Protein 57.2 mg/L (<3.00)
[2023-06-05] MEDS: NA CHLORIDE 0.9% 1,000 ML IV ONE (12:39)
--- NOTE | 2023-06-05 17:29 | RAD REPORT ---
EXAM DESCRIPTION: RAD - Chest Single View - 06/05/2023 5:21 pm CLINICAL HISTORY: PICC Placement COMPARISON: Chest Single View dated 06/02/2023; Chest Single View dated 03/01/2023 FINDINGS: Portable chest was obtained following placement of a right upper extremity PICC line. The catheter tip projects over the SVC..
[2023-06-06 04:56] LABS: Absolute Eosinophils 0.1 K/uL (0-0.5); Absolute Lymphocytes (CBC) 1.2 K/uL (0.7-4.9); Absolute Monocytes 0.4 K/uL (0.1-1.3); Absolute Neutrophil 5.9 K/uL (1.8-8.0); Basophils % 0.5 % (0-1.3); Eosinophils % 0.8 % (0-4.4); Hematocrit 25.8 % (36.0-45.0); Hemoglobin 8.5 g/dL (12.0-15.0); Lymphocytes % 15.2 % (15.3-44.8); MCH 25.9 pg (27.0-35.0); MCHC 33.1 g/dL (32.0-36.0); MCV 78.2 fL (80-100); MPV 7.7 fL (7.6-11.3); Monocytes % 5.3 % (3.3-12.3); Neutrophils % 78.2 % (41.7-73.7); Platelets 346 thou/uL (152-406); Red Cell Distribution Width 17.2 % (12.1-15.2)
[2023-06-06 05:15] LABS: Albumin 1.6 g/dL (3.4-5.0); Albumin/Globulin Ratio 0.4 (1.1-1.8); Anion Gap 4.1 mEq/L (5.0-15.0); Bilirubin Total 0.2 mg/dL (0.2-1.0); Potassium 3.1 mEq/L (3.5-5.1); Protein, Total 5.6 g/dL (6.4-8.2)
--- NOTE | 2023-06-06 09:14 | P.PN ---
Date of Service: 06/06/23 Infectious Disease Progress Note Chief Complaint: Chest pain rule out acute coronary syndrome Subjective: In no apparent distress. + generalized pain, chronic. No new or worsening complaints at this time. Physical Examination Temp Pulse Resp BP Pulse Ox 98.6 F 74 16 174/84 H 98 06/06/23 08:00 06/06/23 08:00 06/06/23 08:00 06/06/23 08:00 06/06/23 08:00 General: Alert, In no apparent distress, Oriented x3 HEENT: Atraumatic, Normocephalic Respiratory: Clear to auscultation bilaterally, Normal air movement. unlabored respirations on room air. Cardiovascular: No edema, Regular rate/rhythm Gastrointestinal: Normal bowel sounds, Soft and benign, Non-distended Integumentary: Pressure ulcer sacrum stage 4. Left heel DTI. Urinary: Patton catheter Laboratory data -Reviewed Microbiology data -Reviewed Imagings Data: -Reviewed Assessment and Plan Problem list Sacral osteomyelitis Urinary tract infection Chest pain Hypertension Rheumatoid arthritis Mild protein calorie malnutrition Sacral osteomyelitis Sacral pressure injury stage IV -Meropenem and Vancomycin switched to Ciprofloxacin IV 06/04. - has been seeing Dr. Perry as outpatient for wound care. Leukocytosis improving Afebrile Urinary tract infection -Urine culture 06/01: Citrobacter amalonaticus * update 06/04: pseudomonas aeruginosa - currently on meropenem - Patton catheter since February - catheter replaced 05/27. Recommendations -Sacral osteomyelitis, chronic. Per Dr. Perry, findings of sacral osteomyelitis not new. patient has been treated in the past. In event patient has received treatment for sacral osteo in the past, recommend continuing antibiotic therapy to treat CAUTI (POA) for 7 days. -> Consider switch to Ciprofloxacin 750mg PO BID upon discharge to complete 7 days antibiotics for CAUTI. Urinary catheter replaced 05/27. -Wound care per Dr. Perry -Pressure offloading measures. -Monitor CBC BMP -Continue supportive care Case discussed with Dr. Joseph,N
[2023-06-06] MEDS: CIPROFLOXACIN HCL 500 MG TAB PO SCH (09:52)
[2023-06-06 11:55] VITALS: O2SAT 97
[2023-06-06 12:29] VITALS: BP 126/73; TEMP 98.5
--- NOTE | 2023-06-06 12:39 | P.DS ---
Admission Date: 06/02/23 Discharge Date: 06/06/23 Reason for Admission: Chest pain rule out acute coronary syndrome Consultations: Dr. Joseph, Dr. Perry Brief History of Present Illness: Patient is a 63-year-old female who comes to the hospital with chest discomfort. Pain was mainly in the sternal region but it pretty much went away by the time she arrived. She has a history of rheumatoid arthritis as well as osteoarthritis. She has not had any treatment for rheumatoid arthritis in a very long time. She suffers with chronic pain 6-7 out of 10 almost all the time. She states that her pain was a little worse out of proportion to what it normally is. She decided to come into the emergency room for further evaluation. In the ER she had extensive workup including CT imaging which did not reveal any pulmonary embolism. Patient also had CT of the abdomen and pelvis and once again reveals findings that are suggestive of sacral osteomyelitis. These findings have been present since February. Otherwise, patient with no other abnormal findings. Decision was made made to admit the patient for inpatient hospitalization. Will go ahead and start patient on IV antibiotics and proceed from there. Hospital Course: Evaluation of the sacral wound does not show any new osteomyelitis, no symptoms of infection noted. Wound care has been performed daily. Offloading of positioning has been utilized. While awaiting sacral wound cultures and urine cultures, Ms. Gates has been on IV antibiotics. Vancomycin 1gm every 24h and cefepime 1gm Q8h were started on 06/04/2023. She has been seen by infectious disease. Sacral and urine cultures were sent. The sacral culture has no growth. Urine culture positive for 4+ mixed gram-negative rods, Citrobacter amalonaticus, Pseudomonas aeroginosa. These are both sensitive to Levaquin and Cipro and then a variety of IV antibiotics. Per Dr. Joseph, Ms. Gates can be switched to p.o. ciprofloxacin 750 mg p.o. x 1 week. She has had PT evaluation and is happy with her progress of sitting at the side of the bed for less than 1 minute. Patient states she has not stood on her feet for 8 years, she has home care and utilizes a Scotty lift. She will be discharged today to follow-up with Dr. Bhakta. <Daja Traore - Last Filed: 06/06/23 12:51> Admission Date: 06/02/23 Discharge Date: 06/06/23 Hospital Course: Pt seen and examined. I agree with the note by the FIRE EXTINGUISHER CHARGER. Continue cipro 750mg po daily for 1 week. Ok to discharge pt. <ToshajamesNicholas liemiliano Wilkerson - Last Filed: 06/06/23 22:56> Disposition: DC HOME/HOME HEALTH CARE Discharge Condition: GOOD Vital Signs/Physical Exam: Temp Pulse Resp BP Pulse Ox 98.5 F 85 15 126/73 97 06/06/23 12:00 06/06/23 12:00 06/06/23 12:00 06/06/23 12:00 06/06/23 12:00 General: Alert, Other (afebrile, nontoxic, stiff) HEENT: Atraumatic, Normocephalic Neck: JVD not distended Respiratory: Normal air movement Cardiovascular: Normal pulses Capillary refill: <2 Seconds Gastrointestinal: Soft and benign Musculoskeletal: Other (severe osteo and rheumatoid arthritis) Integumentary: Other (stage III sacral wound -chronic, no dc, surrounding erythema) Neurological: Abnormal strength, Abnormal tone Lymphatics: No axilla or inguinal lymphadenopathy External genitalia: Deferred Rectal: Deferred Other Physical/Emotional Findings: Pt has not stood for 8 years, has caregivers, pt feels improved and accomplished for sitting on the side of the bed for less than one minute. Laboratory Data at Discharge: WBC 7.60 thou/uL (4.3-10.9) 06/06/23 04:05 Hgb 8.5 g/dL (12.0-15.0) L D 06/06/23 04:05 Hct 25.8 % (36.0-45.0) L 06/06/23 04:05 Plt Count 346 thou/uL (152-406) 06/06/23 04:05 PT 12.6 SECONDS (9.5-12.5) H 06/02/23 07:50 INR 1.15 06/02/23 07:50 Sodium 136 mEq/L (136-145) 06/06/23 04:05 Potassium 3.1 mEq/L (3.5-5.1) L 06/06/23 04:05 BUN 15 mg/dL (7-18) 06/06/23 04:05 Creatinine 0.28 mg/dL (0.55-1.02) L 06/06/23 04:05 Glucose 106 mg/dL (74-106) 06/06/23 04:05 Phosphorus 2.1 mg/dL (2.5-4.9) L 06/03/23 02:54 Magnesium 1.9 mg/dL (1.6-2.4) 06/03/23 02:54 Total Bilirubin 0.2 mg/dL (0.2-1.0) 06/06/23 04:05 AST 23 U/L (15-37) 06/06/23 04:05 ALT 14 U/L (13-56) 06/06/23 04:05 Alkaline Phosphatase 89 U/L (45-117) 06/06/23 04:05 Lipase 25 U/L (13-75) 06/02/23 06:54 <Traore,Daja John - Last Filed: 06/06/23 12:51> Vital Signs/Physical Exam: Temp Pulse Resp BP Pulse Ox 98.5 F 85 15 126/73 97 06/06/23 12:00 06/06/23 12:00 06/06/23 12:00 06/06/23 12:00 06/06/23 12:00 Laboratory Data at Discharge: WBC 7.60 thou/uL (4.3-10.9) 06/06/23 04:05 Hgb 8.5 g/dL (12.0-15.0) L D 06/06/23 04:05 Hct 25.8 % (36.0-45.0) L 06/06/23 04:05 Plt Count 346 thou/uL (152-406) 06/06/23 04:05 PT 12.6 SECONDS (9.5-12.5) H 06/02/23 07:50 INR 1.15 06/02/23 07:50 Sodium 136 mEq/L (136-145) 06/06/23 04:05 Potassium 3.1 mEq/L (3.5-5.1) L 06/06/23 04:05 BUN 15 mg/dL (7-18) 06/06/23 04:05 Creatinine 0.28 mg/dL (0.55-1.02) L 06/06/23 04:05 Glucose 106 mg/dL (74-106) 06/06/23 04:05 Phosphorus 2.1 mg/dL (2.5-4.9) L 06/03/23 02:54 Magnesium 1.9 mg/dL (1.6-2.4) 06/03/23 02:54 Total Bilirubin 0.2 mg/dL (0.2-1.0) 06/06/23 04:05 AST 23 U/L (15-37) 06/06/23 04:05 ALT 14 U/L (13-56) 06/06/23 04:05 Alkaline Phosphatase 89 U/L (45-117) 06/06/23 04:05 Lipase 25 U/L (13-75) 06/02/23 06:54 <Magen Warren - Last Filed: 06/06/23 22:56> Diet: AHA Activity: as per usual <Daja Traore - Last Filed: 06/06/23 12:51> <Magen Warren - Last Filed: 06/06/23 22:56> Home Medications: Amlodipine Besylate [Norvasc] 5 mg PO DAILY 11/29/15 Clonidine HCl [Catapres*] 0.2 mg PO DAILY 11/29/15 Gabapentin [Neurontin] 300 mg PO BID 11/29/15 Levothyroxine [Synthroid*] 100 mcg PO [id number] 11/29/15 Rosuvastatin [Crestor*] 10 mg PO BEDTIME 11/29/15 Triamterene/Hydrochlorothiazid [Triamterene-Hctz 37.5-25 mg Cp] 1 each PO DAILY 11/29/15 Cyclobenzaprine HCl [Flexeril] 5 mg PO Q8H PRN 06/02/23 Hydrocodone 5/APAP 325 [Trevor 5/325*] 1 tab PO Q6H PRN 06/02/23 Montelukast [Singulair*] 10 mg PO BEDTIME 06/02/23 Ciprofloxacin HCl [Cipro 250 MG Tablet*] 250 mg PO BID #14 tab 06/06/23 Ciprofloxacin HCl [Cipro 500 MG Tablet] 500 mg PO BID #14 tab 06/06/23 Collagenase [Santyl Ointment*] 1 appl TOP DAILY #30 gm 06/06/23 Axel [Axel*] 1 pkt PO BID #60 pkt 06/06/23 Mupirocin Calcium [Bactroban Nasal*] 1 appl YOU BID #50 gm 06/06/23 New Medications: Mupirocin Calcium [Bactroban Nasal*] 1 appl YOU BID #50 gm Ciprofloxacin HCl [Cipro 250 MG Tablet*] 250 mg PO BID #14 tab Ciprofloxacin HCl [Cipro 500 MG Tablet] 500 mg PO BID #14 tab Axel [Axel*] 1 pkt PO BID #60 pkt Collagenase [Santyl Ointment*] 1 appl TOP DAILY #30 gm Physician Discharge Instructions: Established Home Health: [facility] Home Health P:[phone] F:[phone] Okay to DC IV and DC home with prescriptions for Santyl, Mupirocin, Gabapentin, and Cipro 750mg po BID x 7 days Follow-up with primary care provider in 1 to 2 weeks Please call the inpatient unit for any questions or concerns regarding hospital stay Return to the ER for worsening symptoms Followup: Nikolay Bhakta, [Primary Care Provider] -
== END 2023-06-06 14:28 | disposition home health service (06) | DRG 698 ==
LOC: ER 06:20 → ERHOLD 10:47 → 4TH 11:36
PROVIDERS: ADMIT Hospitalist; ATTEND Hospitalist
PROC: 0T9B70Z Drainage of Bladder with Drainage Device, Via Natural or Artificial Opening (ICD-10-PCS; principal; 2023-06-02)
PROC: 02HV33Z Insertion of Infusion Device into Superior Vena Cava, Percutaneous Approach (ICD-10-PCS; 2023-06-05)
DX: T83.511A Infection and inflammatory reaction due to indwelling urethral catheter, initial encounter (principal); L89.154 Pressure ulcer of sacral region, stage 4; E44.1 Mild protein-calorie malnutrition; M86.68 Other chronic osteomyelitis, other site; N39.0 Urinary tract infection, site not specified; I10 Essential (primary) hypertension; E87.6 Hypokalemia; E78.5 Hyperlipidemia, unspecified; D50.9 Iron deficiency anemia, unspecified; E03.9 Hypothyroidism, unspecified; M19.90 Unspecified osteoarthritis, unspecified site; D75.839 Thrombocytosis, unspecified; L89.626 Pressure-induced deep tissue damage of left heel; D72.829 Elevated white blood cell count, unspecified; B96.5 Pseudomonas (aeruginosa) (mallei) (pseudomallei) as the cause of diseases classified elsewhere; B96.89 Other specified bacterial agents as the cause of diseases classified elsewhere; Z88.1 Allergy status to other antibiotic agents; Z88.0 Allergy status to penicillin; Z88.8 Allergy status to other drugs, medicaments and biological substances; Z68.25 Body mass index [BMI] 25.0-25.9, adult; Z86.14 Personal history of Methicillin resistant Staphylococcus aureus infection; Z91.013 Allergy to seafood; Z79.899 Other long term (current) drug therapy; Z87.891 Personal history of nicotine dependence; Z79.890 Hormone replacement therapy; Z96.651 Presence of right artificial knee joint; Y84.8 Other medical procedures as the cause of abnormal reaction of the patient, or of later complication, without mention of misadventure at the time of the procedure
CPT/HCPCS: 36415; 71045; 71275; 74177; 80048; 80053; 80076; 80202; 81001; 82550; 83690; 83735; 83880; 84100; 84484; 85025; 85610; 86140; 87070; 87077; 87086; 87088; 87186; 87205; 93005; 93970; 96365; 96367; 96372; 96375; 97110; 97163; 97530; 99285; A4216; J0295; J0692; J1650; J2185; J2270; J2405; J3480; J3590; J7030; J7040; J7050; Q9967

== ENCOUNTER 2023-07-10 07:45 | Emergency (ER) | payer OTHER ==
--- OUTSIDE RECORDS SUMMARY | 2023-07-10 07:52 | XMS REPORT | Continuity of Care Document ---
Author Name Unknown Address [address] [facility] Jose Alfredo. [address] [place] [address] [facility] Address [address] [facility]. [address] [place] [address] Care Team Providers Care Operational Trainer Name Role Phone Sonal Washington Attending Clinician Unavail able Nikolay Bhakta Attending Clinician Unavailable Ofelia KHALIL Attending Clinician Unavailable Ihdory, Ugonna N Attending Clinician Unavaila ble Latisha, Na L Attending Clinician Unavailable TERRI_Luna Attending Clinician Unavailab le FOG_Rachel Attending Clinician Unavaila ble GC_GCBZW_Kadiyala_S Attending Clinician Unavaila Ian Aleman Attending Clinician Unavaila ble Tre Admitting Clinician Unavailab le FOG_Rachel Admitting Clinician Unavaila ble GC_GCBZW_Kadiyala_S Admitting Clinician Unavaila Ian Aleman Admitting Clinician Unavaila ble Radhika, Ugonna N Admitting Clinician Unavaila ble Payers Payer Name Policy Type Policy Number Effective Date Expirati on Date Source [facility] Dual Complete (HMO-POS D-SNP) [id number] 2020 00:00:00 [facility] GROUP - [facility] - DUAL ELIGIBLE (MEDICARE REPLACEMENT/ADVAN TAGE - HMO) [id number] 2022 00:00[place]PLACEMENT - HMO) [id number] 2018 00:00:00 [facility] - DUAL COMPLETE - DUAL ELIGIBLE - SNP (MEDICARE-MEDICAI D REPLACEMENT HMO) [id number] [facility] GROUP - [facility] - [facility] PLAN - DUAL COMPLETE FOCUS (MEDICARE REPLACEMENT HMO) [id number] MEDICAID MC [id number] 2012 00:00:00 [facility] MEDICARE NOVITAS MB [id number] 2010 00:00:00 [facility] AMERIGROUP (Medicaid) [id number] 2018 00:00:00 [facility] Problems Condition Name Condition Details Condition Category [...] End of Right Femur Problem Active 2022-02 00:00: 00 [facility] Post traumatic osteoarthr itis Post Traumatic Osteoarthr itis Problem Active 2021-02- 00:00: 00 [facility] Osteoarthr itis of knee Osteoarthr itis of Knee Problem Active 2013-02 00:00: 00 [facility] [id number] Functional quadripleg ia Problem [facility] [id number] Microcytic anemia Problem [facility] [id number] Pressure injury of deep tissue of sacral region Problem [facility] [id number] Chronic ulcer of lower extremity, right, with unspecifie d severity Problem [facility] [id number] MRSA infection Problem [facility] [id number] S/P PICC central line placement Problem Common [facility] Encounter for Bang catheter replacemen t Encounter for Bang catheter replacemen t Problem [facility] [id number] Incontinen ce of feces, unspecifie d fecal incontinen ce type Problem Common [facility] [id number] Urinary incontinen ce, unspecifie d type Problem [facility] [id number] Seasonal allergic rhinitis due to pollen Problem [facility] [id number] Other closed fracture of proximal end of right tibia, initial encounter Problem [facility] [id number] Other closed fracture of proximal end of right fibula, initial encounter Problem [facility] [id number] Body mass index [BMI] 33.0-33.9, adult Problem [facility] General weakness General weakness Problem [facility] Pain in limb Pain in limb Problem [facility] 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 Problem [facility] Edema Edema leg Problem [facility] [id number] Other closed fracture of distal end of right femur, initial encounter Problem [facility] [id number] Other obesity due to excess calories Problem Common [facility] Peripheral neuropathy Peripheral neuropathy Problem Common [facility] Hypertensi on HTN (hypertens ion) Problem Common [facility] Gastroesop hageal reflux disease GERD (gastroeso phageal reflux disease) Problem [facility] Anemia Anemia Problem [facility] Hypothyroi dism Hypothyroi dism Problem [facility] Rheumatoid arthritis Rheumatoid arthritis Problem Common [facility] Hyperlipid emia Hyperlipid emia Problem [facility] [id number] +5th digit eff 11/27/19*Ga stroesopha geal reflux disease with esophagiti s Problem Common [facility] [id number] Neuropathy Problem Com mon [facility] [id number] Wheelchair dependence Problem Common [facility] Knee pain Knee pain Problem Comm on [facility] [id number] Chronic seasonal allergic rhinitis Problem Common [facility] Dependence on wheelchair Uses wheelchair Problem [facility] Acquired genu valgum Valgus deformity, not elsewhere classified , right knee Problem [facility] [id number] Influenza vaccinatio n administer ed at current visit Problem [facility] [id number] Pressure injury of sacral region, stage 4 Problem [facility] [id number] Leukocytos is, unspecifie d type Problem [facility] Allergies, Adverse Reactions, Alerts Allergy Name Allergy Type Status Severity Reaction(s) Onset Date Inactive Date Treating Clinician Comments Source Penicill ins DA Active SV BREAKOUT IN HIVES UNDER THE SKIN 2022-02 00:00: 00 [facility] lisinopr il DA Active SV CAUSE ME TO HAVE KIDNEY FAILURE 2022-02 0 00:00: 00 [facility] iodine DA Active SV THROAT SWELLING UP, DIFFICULTY BREATHING 2022-02 0- 00:00: 00 [facility] azithrom ycin DA Active SV HIVES 2022-02 0- 00:00: 00 [facility] shellfis h derived FA Active SV THROAT SWELLING UP, DIFFICULTY BREATHING 2022-02 0-23 00:00: 00 [facility] shrimp FA Active SV THROAT SWELLS, DIFFICULTY BREATHING 2022-02 0-23 00:00: 00 [facility] crab FA Active SV THROAT SWELLS, DIFFICULTY BREATHING 2022-02 0-23 00:00: 00 [facility] azithrom ycin DA Active SV HIVES 2022-02 0-13 00:00: 00 [facility] shrimp FA Active SV THROAT SWELLS, DIFFICULTY BREATHING 8-17 00:00: 00 [facility] crab FA Active SV THROAT SWELLS, DIFFICULTY BREATHING 10-12 00:00: 00 [facility] Penicill ins DA Active SV BREAKOUT IN HIVES UNDER THE SKIN 10-12 00:00: 00 [facility] lisinopr il DA Active SV CAUSE ME TO HAVE KIDNEY FAILURE 10-12 00:00: 00 [facility] iodine DA Active SV THROAT SWELLING UP, DIFFICULTY BREATHING 10-12 00:00: 00 [facility] shellfis h derived FA Active SV THROAT SWELLING UP, DIFFICULTY BREATHING 10-12 00:00: 00 [facility] LISINOPR IL Allergy to substanc e Active 2013-02 00:00: 00 [facility] PENICILL IN Allergy to substanc e Active 2013-02 00:00: 00 [facility] [id number] Drug allergy Active Unknown [facility] Amoxicil edwin Allergy to substanc e Active [...] Quantity Comments Source History of Tobacco Use [facility] Sex Assigned At [facility] Smoking Status Start Date Stop Date Source Never Smoker [facility] Medications Ordered Medication Name Filled Medication Name Start Date Stop Date Current Medication? Ordering Clinician Indication Dosage Frequency Signature (SIG) Comments Components Source Levothyroxi ne Sodium 75 MCG Levothyroxi ne Sodium 75 MCG 07-06 00:00: 00 No QD Levothyrox ine Sodium 75 MCG Levothyroxi ne Sodium 75 MCG Levothyroxi ne Sodium 75 MCG - 00:00: 00 No QD Levothyrox ine Sodium 75 MCG Levothyroxi ne Sodium 75 MCG Levothyroxi ne Sodium 75 MCG 2021--11 00:00: 00 No QD Levothyrox ine Sodium 75 MCG Levothyroxi ne Sodium 75 MCG Levothyroxi ne Sodium 75 MCG 2022-0 5-11 00:00: 00 No QD Levothyrox ine Sodium 75 MCG Levothyroxi ne Sodium 75 MCG Levothyroxi ne Sodium 75 MCG 2-0 5-11 00:00: 00 No QD Levothyrox ine Sodium 75 MCG Levothyroxi ne Sodium 75 MCG Levothyroxi ne Sodium 75 MCG 2-0 5-11 00:00: 00 No QD Levothyrox ine Sodium 75 MCG Levothyroxi ne Sodium 75 MCG Levothyroxi ne Sodium 75 MCG 2-0 5-11 00:00: 00 No QD Levothyrox ine [...] Ranitidine HCl 05-06 00:00: 00 Yes Na Good 1 capsule [facility] amlodipine 2.5 mg tablet amlodipine 2.5 mg [...] TAKE 1 TABLET BY MOUTH ONCE DAILY [facility] levothyroxi ne [...] Crestor Crestor Yes Na Good 1 tablet [facility] Clonidine HCl Clonidine HCl Yes Na Good 1 tablet [facility] Folic Acid XTRA Folic Acid XTRA Yes Na Good 1 tab [facility] Triamterene -HCTZ Triamterene -HCTZ Yes Na Good 1 tablet in the morning [facility] Norvasc Norvasc Yes Na Good 1 tablet [facility] Flonase Flonase Yes Na Good 1 spray in each nostril [facility] Montelukast Sodium Montelukast Sodium Yes Na Good 1 tablet in the evening [facility] Gabapentin Gabapentin Yes Na Good 1 capsule [facility] Levothyroxi ne Sodium Levothyroxi ne Sodium Yes Na Good 1 tablet on an empty stomach in the morning [facility] Vitamin D3 Vitamin D3 Yes Na Good 1 capsule [facility] Clonidine HCl Clonidine HCl Yes Na Good 1 tablet [facility] Methotrexat e Sodium (PF) Methotrexat e Sodium (PF) Yes Na Good INJECT 0.8 ML SUBCUTANEO USLY ONCE EVERY WEEK. [facility] Fluconazole 150 MG Fluconazole 150 MG No 1{table t} Fluconazol e 150 MG Bactroban Nasal Bactroban Nasal No 1{table t_in_th e_eveni ng} QD Bactroban Nasal Rosuvastati n Calcium 10 MG Rosuvastati n Calcium 10 MG No 1{table t} QD Rosuvastat in Calcium 10 MG Methotrexat e [...] No 1{table t} QD Norvasc 5 MG Ciprofloxac in HCl 500 MG Ciprofloxac in HCl 500 MG No 1{table t} BID Ciprofloxa dena HCl 500 MG Santyl 250 UNIT/GM Santyl 250 UNIT/GM No 1{appli cation} QD Santyl 250 UNIT/GM Bactroban Nasal Bactroban Nasal No 1{table t_in e_eveni ng} QD Bactroban Nasal Fluticasone Propionate 50 MCG/ACT Fluticasone Propionate 50 MCG/ACT No 1{spray _in_eac h_nostr il} QD Fluticason e Propionate 50 MCG/ACT Rosuvastati n Calcium 10 MG Rosuvastati n Calcium 10 MG No 1{table t} QD Rosuvastat in Calcium 10 MG Ciprofloxac in HCl 250 MG Ciprofloxac in HCl 250 MG No 1{table t} BID Ciprofloxa dena HCl 250 MG Norvasc 5 MG Norvasc 5 MG No 1{table t} QD Norvasc 5 MG cloNIDine HCl 0.2 MG cloNIDine HCl 0.2 MG No 1{table t} QD cloNIDine HCl 0.2 MG Levothyroxi ne Sodium 100 MCG Levothyroxi ne Sodium 100 MCG No QD Levothyrox ine Sodium 100 MCG Triamterene -HCTZ 37.5-25 MG Triamterene -HCTZ 37.5-25 MG No 1{table t_in_th e_morni ng} QD Triamteren e-HCTZ 37.5-25 MG Gabapentin 300 MG Gabapentin 300 MG No 1{capsu le} BID Gabapentin 300 MG Axel - Axel - No Axel - Montelukast Sodium 10 MG Montelukast Sodium 10 MG No Montelukas t Sodium 10 MG amLODIPine Besylate 5 MG amLODIPine Besylate 5 MG No amLODIPine Besylate 5 MG Vancomycin HCl 1.5 GM Vancomycin HCl 1.5 GM No QD Vancomycin HCl 1.5 GM Levothyroxi ne Sodium 50 MCG Levothyroxi ne [...] 00:00 :00 No Na Good 1 tablet [facility] Immunizations Ordered Immunization Name Filled Immunization Name Date Status Comments Source Flucelvax - single dose syringe Flucelvax - single dose syringe 2022-01-31 15:24:00 [facility] Flucelvax - single dose syringe Flucelvax - single dose syringe 2022-01-31 15:24:00 [facility] Moderna COVID-19 Vaccine Moderna COVID-19 Vaccine 2020-09-03 11:38:00 Completed [facility] Moderna COVID-19 Vaccine Moderna COVID-19 Vaccine 2020-09-03 11:38:00 Completed [facility] Moderna COVID-19 Vaccine Moderna COVID-19 Vaccine 2020-09-03 11:38:00 Completed [facility] Moderna COVID-19 Vaccine Moderna COVID-19 Vaccine 2020-09-03 11:38:00 Completed [facility] Moderna COVID-19 Vaccine Moderna COVID-19 Vaccine 2020-09-03 11:38:00 Completed [facility] Moderna COVID-19 Vaccine Moderna COVID-19 Vaccine 2020-09-03 11:38:00 Completed Common [facility] Moderna COVID-19 Vaccine Moderna COVID-19 Vaccine 2020-09-03 11:38:00 Completed [facility] Moderna COVID-19 Vaccine Moderna COVID-19 Vaccine 2020-09-03 11:38:00 Completed [facility] Moderna COVID-19 Vaccine Moderna COVID-19 Vaccine 2020-09-03 11:38:00 Completed [facility] Moderna COVID-19 Vaccine Moderna COVID-19 Vaccine 2020-09-03 11:38:00 Completed [facility] Moderna COVID-19 Vaccine Moderna COVID-19 Vaccine 2020-09-03 11:38:00 Completed [facility] Moderna COVID-19 Vaccine Moderna COVID-19 Vaccine 2020-09-03 11:38:00 Completed Common [facility] Moderna COVID-19 Vaccine Moderna COVID-19 Vaccine 2020-09-03 11:38:00 Completed [facility] Moderna COVID-19 Vaccine Moderna COVID-19 Vaccine 2020-09-03 11:38:00 Completed [facility] Moderna COVID-19 Vaccine Moderna COVID-19 Vaccine 2020-09-03 11:38:00 Completed Common [facility] Moderna COVID-19 Vaccine Moderna COVID-19 Vaccine 2020-09-03 11:38:00 Completed [facility] Afluria Afluria 2020-01-29 10:05:00 Completed [facility] Afluria Afluria 2020-01-29 10:05:00 Completed [facility] Afluria Afluria 2020-01-29 10:05:00 Completed [facility] Afluria Afluria 2020-01-29 10:05:00 Completed Common [facility] Afluria Afluria 2020-01-29 10:05:00 Completed [facility] Afluria Afluria 2020-01-29 10:05:00 Completed [facility] Afluria Afluria 2020-01-29 10:05:00 Completed [facility] Afluria Afluria 2020-01-29 10:05:00 Completed [facility] Afluria Afluria 2020-01-29 10:05:00 Completed [facility] Afluria Afluria 2020-01-29 10:05:00 Completed [facility] Afluria Afluria 2020-01-29 10:05:00 Completed [facility] Afluria Afluria 2020-01-29 10:05:00 Completed [facility] Afluria Afluria 2020-01-29 10:05:00 Completed [facility] Afluria Afluria 2020-01-29 10:05:00 Completed [facility] Afluria Afluria 2020-01-29 10:05:00 Completed [facility] Afluria Afluria 2020-01-29 10:05:00 Completed [facility] Flu FluAD 2018-11-08 09:31:00 Completed [facility] Flu FluAD 2018-11-08 09:31:00 Completed [facility] Flu Flu 2018-11-08 09:31:00 Completed [facility] Flu FluAD 2018-11-08 09:31:00 Completed [facility] Flu FluAD 2018-11-08 09:31:00 Completed [facility] Flu FluAD 2018-11-08 09:31:00 Completed [facility] Flu FluAD 2018-11-08 09:31:00 Completed [facility] Flu FluAD 2018-11-08 09:31:00 Completed [facility] Flu FluAD 2018-11-08 09:31:00 Completed [facility] FluAD FluAD 2018-11-08 09:31:00 Completed [facility] FluAD FluAD 2018-11-08 09:31:00 Completed [facility] FluAD FluAD 2018-11-08 09:31:00 Completed [facility] FluAD FluAD 2018-11-08 09:31:00 Completed [facility] FluAD FluAD 2018-11-08 09:31:00 Completed [facility] FluAD FluAD 2018-11-08 09:31:00 Completed [facility] FluAD FluAD 2018-11-08 09:31:00 Completed [facility] FluAD FluAD 2018-11-08 00:00:00 Completed [facility] FLUZONE HIGH DOSE OVER 65 FLUZONE HIGH DOSE OVER 65 2017-10-31 12:06:00 Completed [facility] FLUZONE HIGH DOSE OVER 65 FLUZONE HIGH DOSE OVER 65 2017-10-31 12:06:00 Completed [facility] FLUZONE HIGH DOSE OVER 65 FLUZONE HIGH DOSE OVER 65 2017-10-31 12:06:00 Completed [facility] FLUZONE HIGH DOSE OVER 65 FLUZONE HIGH DOSE OVER 65 2017-10-31 12:06:00 Completed [facility] FLUZONE HIGH DOSE OVER 65 FLUZONE HIGH DOSE OVER 65 2017-10-31 12:06:00 Completed [facility] FLUZONE HIGH DOSE OVER 65 FLUZONE HIGH DOSE OVER 65 2017-10-31 12:06:00 Completed [facility] FLUZONE HIGH DOSE OVER 65 FLUZONE HIGH DOSE OVER 65 2017-10-31 12:06:00 Completed [facility] FLUZONE HIGH DOSE OVER 65 FLUZONE HIGH DOSE OVER 65 2017-10-31 12:06:00 Completed [facility] FLUZONE HIGH DOSE OVER 65 FLUZONE HIGH DOSE OVER 65 2017-10-31 12:06:00 Completed [facility] FLUZONE HIGH DOSE OVER 65 FLUZONE HIGH DOSE OVER 65 2017-10-31 12:06:00 Completed [facility] FLUZONE HIGH DOSE OVER 65 FLUZONE HIGH DOSE OVER 65 2017-10-31 12:06:00 Completed [facility] FLUZONE HIGH DOSE OVER 65 FLUZONE HIGH DOSE OVER 65 2017-10-31 12:06:00 Completed [facility] FLUZONE HIGH DOSE OVER 65 FLUZONE HIGH DOSE OVER 65 2017-10-31 12:06:00 Completed [facility] FLUZONE HIGH DOSE OVER 65 FLUZONE HIGH DOSE OVER 65 2017-10-31 12:06:00 Completed [facility] FLUZONE HIGH DOSE OVER 65 FLUZONE HIGH DOSE OVER 65 2017-10-31 12:06:00 Completed [facility] FLUZONE HIGH DOSE OVER 65 FLUZONE HIGH DOSE OVER 65 2017-10-31 12:06:00 Completed [facility] Prevnar 20 (PCV20) Prevnar 20 (PCV20) Unknown Completed [facility] Moderna COVID-19 Vaccine Moderna COVID-19 Vaccine Unknown Completed [facility] Fluarix (IIV4) - SDS - 0.5mL Fluarix (IIV4) - SDS - 0.5mL Unknown Completed [facility] FluAD FluAD Unknown Completed [facility] Afluria Afluria Unknown Completed [facility] Flucelvax (ccIIV4) - SDS - 0.5mL Flucelvax (ccIIV4) - SDS - 0.5mL Unknown Completed [facility] FLUZONE HIGH DOSE OVER 65 FLUZONE HIGH DOSE OVER 65 Unknown Completed [facility] Prevnar 20 (PCV20) Prevnar 20 (PCV20) Unknown Completed [facility] Moderna COVID-19 Vaccine Moderna COVID-19 Vaccine Unknown Completed [facility] Fluarix (IIV4) - SDS - 0.5mL Fluarix (IIV4) - SDS - 0.5mL Unknown Completed [facility] FluAD FluAD Unknown Completed [facility] Afluria Afluria Unknown Completed [facility] Flucelvax (ccIIV4) - SDS - 0.5mL Flucelvax (ccIIV4) - SDS - 0.5mL Unknown Completed [facility] FLUZONE HIGH DOSE OVER 65 FLUZONE HIGH DOSE OVER 65 Unknown Completed [facility] Prevnar 20 (PCV20) Prevnar 20 (PCV20) Unknown Completed [facility] Moderna COVID-19 Vaccine Moderna COVID-19 Vaccine Unknown Completed [facility] Fluarix (IIV4) - SDS - 0.5mL Fluarix (IIV4) - SDS - 0.5mL Unknown Completed [facility] FluAD FluAD Unknown Completed [facility] Afluria Afluria Unknown Completed [facility] Flucelvax (ccIIV4) - SDS - 0.5mL Flucelvax (ccIIV4) - SDS - 0.5mL Unknown Completed [facility] FLUZONE HIGH DOSE OVER 65 FLUZONE HIGH DOSE OVER 65 Unknown Completed [facility] Prevnar 20 (PCV20) Prevnar 20 (PCV20) Unknown Completed [facility] Moderna COVID-19 Vaccine Moderna COVID-19 Vaccine Unknown Completed [facility] Fluarix (IIV4) - SDS - 0.5mL Fluarix (IIV4) - SDS - 0.5mL Unknown Completed [facility] FluAD FluAD Unknown Completed [facility] Afluria Afluria Unknown Completed [facility] Flucelvax (ccIIV4) - SDS - 0.5mL Flucelvax (ccIIV4) - SDS - 0.5mL Unknown Completed [facility] FLUZONE HIGH DOSE OVER 65 FLUZONE HIGH DOSE OVER 65 Unknown Completed [facility] Prevnar 20 (PCV20) Prevnar 20 (PCV20) Unknown Completed [facility] Moderna COVID-19 Vaccine Moderna COVID-19 Vaccine Unknown Completed [facility] Fluarix (IIV4) - SDS - 0.5mL Fluarix (IIV4) - SDS - 0.5mL Unknown Completed [facility] FluAD FluAD Unknown Completed [facility] Afluria Afluria Unknown Completed [facility] Flucelvax (ccIIV4) - SDS - 0.5mL Flucelvax (ccIIV4) - SDS - 0.5mL Unknown Completed [facility] FLUZONE HIGH DOSE OVER 65 FLUZONE HIGH DOSE OVER 65 Unknown Completed [facility] Prevnar 20 (PCV20) Prevnar 20 (PCV20) Unknown [facility] COVID-[facility] Vaccine Moderna COVID-19 Vaccine Unknown Completed [facility] Fluarix (IIV4) - SDS - 0.5mL Fluarix (IIV4) - SDS - 0.5mL Unknown Completed [facility] FluAD FluAD Unknown Completed [facility] Afluria Afluria Unknown Completed [facility] Flucelvax (ccIIV4) - SDS - 0.5mL Flucelvax (ccIIV4) - SDS - 0.5mL Unknown Completed [facility] FLUZONE HIGH DOSE OVER 65 FLUZONE HIGH DOSE OVER 65 Unknown Completed [facility] Prevnar 20 (PCV20) Prevnar 20 (PCV20) Unknown Completed [facility] COVID-19 Vaccine Moderna COVID-19 Vaccine Unknown Completed [facility] Fluarix (IIV4) - SDS - 0.5mL Fluarix (IIV4) - SDS - 0.5mL Unknown Completed [facility] FluAD FluAD Unknown Completed [facility] Afluria Afluria Unknown Completed [facility] Flucelvax (ccIIV4) - SDS - 0.5mL Flucelvax (ccIIV4) - SDS - 0.5mL Unknown Completed [facility] FLUZONE HIGH DOSE OVER 65 FLUZONE HIGH DOSE OVER 65 Unknown Completed [facility] Prevnar 20 (PCV20) Prevnar 20 (PCV20) Unknown Completed [facility] Moderna COVID-19 Vaccine Moderna COVID-19 Vaccine Unknown Completed [facility] Fluarix (IIV4) - SDS - 0.5mL Fluarix (IIV4) - SDS - 0.5mL Unknown Completed [facility] FluAD FluAD Unknown Completed [facility] Afluria Afluria Unknown Completed [facility] Flucelvax (ccIIV4) - SDS - 0.5mL Flucelvax (ccIIV4) - SDS - 0.5mL Unknown Completed [facility] FLUZONE HIGH DOSE OVER 65 FLUZONE HIGH DOSE OVER 65 Unknown Completed [facility] Prevnar 20 (PCV20) Prevnar 20 (PCV20) Unknown Completed [facility] Moderna COVID-19 Vaccine Moderna COVID-19 Vaccine Unknown Completed [facility] Fluarix (IIV4) - SDS - 0.5mL Fluarix (IIV4) - SDS - 0.5mL Unknown Completed [facility] FluAD FluAD Unknown Completed [facility] Afluria Afluria Unknown Completed [facility] Flucelvax (ccIIV4) - SDS - 0.5mL Flucelvax (ccIIV4) - SDS - 0.5mL Unknown Completed [facility] FLUZONE HIGH DOSE OVER 65 FLUZONE HIGH DOSE OVER 65 Unknown Completed [facility] Prevnar 20 (PCV20) Prevnar 20 (PCV20) Unknown Completed [facility] Moderna COVID-19 Vaccine Moderna COVID-19 Vaccine Unknown Completed [facility] Fluarix (IIV4) - SDS - 0.5mL Fluarix (IIV4) - SDS - 0.5mL Unknown Completed [facility] FluAD FluAD Unknown Completed [facility] Afluria Afluria Unknown Completed [facility] Flucelvax (ccIIV4) - SDS - 0.5mL Flucelvax (ccIIV4) - SDS - 0.5mL Unknown Completed [facility] FLUZONE HIGH DOSE OVER 65 FLUZONE HIGH DOSE OVER 65 Unknown Completed [facility] Prevnar 20 (PCV20) Prevnar 20 (PCV20) Unknown Completed [facility] Moderna COVID-19 Vaccine Moderna COVID-19 Vaccine Unknown Completed [facility] Fluarix (IIV4) - SDS - 0.5mL Fluarix (IIV4) - SDS - 0.5mL Unknown Completed [facility] FluAD FluAD Unknown Completed [facility] Afluria Afluria Unknown Completed [facility] Flucelvax (ccIIV4) - SDS - 0.5mL Flucelvax (ccIIV4) - SDS - 0.5mL Unknown Completed [facility] FLUZONE HIGH DOSE OVER 65 FLUZONE HIGH DOSE OVER 65 Unknown Completed [facility] Prevnar 20 (PCV20) Prevnar 20 (PCV20) Unknown Completed [facility] Moderna COVID-19 Vaccine Moderna COVID-19 Vaccine Unknown Completed [facility] Fluarix (IIV4) - SDS - 0.5mL Fluarix (IIV4) - SDS - 0.5mL Unknown Completed [facility] FluAD FluAD Unknown Completed [facility] Afluria Afluria Unknown Completed [facility] Flucelvax (ccIIV4) - SDS - 0.5mL Flucelvax (ccIIV4) - SDS - 0.5mL Unknown Completed [facility] FLUZONE HIGH DOSE OVER 65 FLUZONE HIGH DOSE OVER 65 Unknown Completed [facility] Prevnar 20 (PCV20) Prevnar 20 (PCV20) Unknown Completed [facility] Moderna COVID-19 Vaccine Moderna COVID-19 Vaccine Unknown Completed [facility] Fluarix (IIV4) - SDS - 0.5mL Fluarix (IIV4) - SDS - 0.5mL Unknown Completed [facility] FluAD FluAD Unknown Completed [facility] Afluria Afluria Unknown Completed [facility] Flucelvax (ccIIV4) - SDS - 0.5mL Flucelvax (ccIIV4) - SDS - 0.5mL Unknown Completed [facility] FLUZONE HIGH DOSE OVER 65 FLUZONE HIGH DOSE OVER 65 Unknown Completed [facility] Prevnar 20 (PCV20) Prevnar 20 (PCV20) Unknown Completed [facility] Moderna COVID-19 Vaccine Moderna COVID-19 Vaccine Unknown Completed [facility] Fluarix (IIV4) - SDS - 0.5mL Fluarix (IIV4) - SDS - 0.5mL Unknown Completed [facility] FluAD FluAD Unknown Completed [facility] Afluria Afluria Unknown Completed [facility] Flucelvax (ccIIV4) - SDS - 0.5mL Flucelvax (ccIIV4) - SDS - 0.5mL Unknown Completed [facility] FLUZONE HIGH DOSE OVER 65 FLUZONE HIGH DOSE OVER 65 Unknown Completed [facility] Prevnar 20 (PCV20) Prevnar 20 (PCV20) Unknown Completed [facility] Moderna COVID-19 Vaccine Moderna COVID-19 Vaccine Unknown Completed [facility] Fluarix (IIV4) - SDS - 0.5mL Fluarix (IIV4) - SDS - 0.5mL Unknown Completed [facility] FluAD FluAD Unknown Completed [facility] Afluria Afluria Unknown Completed [facility] Flucelvax (ccIIV4) - SDS - 0.5mL Flucelvax (ccIIV4) - SDS - 0.5mL Unknown Completed [facility] FLUZONE HIGH DOSE OVER 65 FLUZONE HIGH DOSE OVER 65 Unknown Completed [facility] Prevnar 20 (PCV20) Prevnar 20 (PCV20) Unknown Completed [facility] Moderna COVID-19 Vaccine Moderna COVID-19 Vaccine Unknown Completed [facility] Fluarix (IIV4) - SDS - 0.5mL Fluarix (IIV4) - SDS - 0.5mL Unknown Completed [facility] FluAD FluAD Unknown Completed [facility] Afluria Afluria Unknown Completed [facility] Flucelvax (ccIIV4) - SDS - 0.5mL Flucelvax (ccIIV4) - SDS - 0.5mL Unknown Completed [facility] FLUZONE HIGH DOSE OVER 65 FLUZONE HIGH DOSE OVER 65 Unknown Completed [facility] Prevnar 20 (PCV20) Prevnar 20 (PCV20) Unknown Completed [facility] Moderna COVID-19 Vaccine Moderna COVID-19 Vaccine Unknown Completed [facility] Fluarix (IIV4) - SDS - 0.5mL Fluarix (IIV4) - SDS - 0.5mL Unknown Completed [facility] FluAD FluAD Unknown Completed [facility] Afluria Afluria Unknown Completed [facility] Flucelvax (ccIIV4) - SDS - 0.5mL Flucelvax (ccIIV4) - SDS - 0.5mL Unknown Completed [facility] FLUZONE HIGH DOSE OVER 65 FLUZONE HIGH DOSE OVER 65 Unknown Completed [facility] Prevnar 20 (PCV20) Prevnar 20 (PCV20) Unknown Completed [facility] Moderna COVID-19 Vaccine Moderna COVID-19 Vaccine Unknown Completed [facility] Fluarix (IIV4) - SDS - 0.5mL Fluarix (IIV4) - SDS - 0.5mL Unknown Completed [facility] FluAD FluAD Unknown Completed [facility] Afluria Afluria Unknown Completed [facility] Flucelvax (ccIIV4) - SDS - 0.5mL Flucelvax (ccIIV4) - SDS - 0.5mL Unknown Completed [facility] FLUZONE HIGH DOSE OVER 65 FLUZONE HIGH DOSE OVER 65 Unknown Completed [facility] Prevnar 20 (PCV20) Prevnar 20 (PCV20) Unknown [facility] Moderna COVID-19 Vaccine Unknown Completed [facility] Fluarix Fluarix Unknown Completed [facility] FluAD FluAD Unknown Completed [facility] Afluria Afluria Unknown Completed [facility] Flucelvax - single dose syringe Flucelvax - single dose syringe Unknown Completed [facility] FLUZONE HIGH DOSE OVER 65 FLUZONE HIGH DOSE OVER 65 Unknown Completed [facility] Prevnar 20 (PCV20) Prevnar 20 (PCV20) Unknown Completed [facility] Moderna COVID-19 Vaccine Moderna COVID-19 Vaccine Unknown Completed [facility] Fluarix Fluarix Unknown Completed [facility] FluAD FluAD Unknown Completed [facility] Afluria Afluria Unknown Completed [facility] Flucelvax - single dose syringe Flucelvax - single dose syringe Unknown Completed [facility] FLUZONE HIGH DOSE OVER 65 FLUZONE HIGH DOSE OVER 65 Unknown Completed [facility] Prevnar 20 (PCV20) Prevnar 20 (PCV20) Unknown Completed [facility] Moderna COVID-19 Vaccine Moderna COVID-19 Vaccine Unknown Completed [facility] Fluarix Fluarix Unknown Completed [facility] FluAD FluAD Unknown Completed [facility] Afluria Afluria Unknown Completed [facility] Flucelvax - single dose syringe Flucelvax - single dose syringe Unknown Completed [facility] FLUZONE HIGH DOSE OVER 65 FLUZONE HIGH DOSE OVER 65 Unknown Completed [facility] Prevnar 20 (PCV20) Prevnar 20 (PCV20) Unknown Completed [facility] COVID-19 Vaccine Moderna COVID-19 Vaccine Unknown Completed [facility] Fluarix (IIV4) - SDS - 0.5mL Fluarix (IIV4) - SDS - 0.5mL Unknown Completed [facility] FluAD FluAD Unknown Completed [facility] Afluria Afluria Unknown Completed [facility] Flucelvax (ccIIV4) - SDS - 0.5mL Flucelvax (ccIIV4) - SDS - 0.5mL Unknown Completed [facility] FLUZONE HIGH DOSE OVER 65 FLUZONE HIGH DOSE OVER 65 Unknown Completed [facility] Prevnar 20 (PCV20) Prevnar 20 (PCV20) Unknown Completed [facility] Moderna COVID-19 Vaccine Moderna COVID-19 Vaccine Unknown Completed [facility] Fluarix (IIV4) - SDS - 0.5mL Fluarix (IIV4) - SDS - 0.5mL Unknown Completed [facility] FluAD FluAD Unknown Completed [facility] Afluria Afluria Unknown Completed [facility] Flucelvax (ccIIV4) - SDS - 0.5mL Flucelvax (ccIIV4) - SDS - 0.5mL Unknown Completed [facility] FLUZONE HIGH DOSE OVER 65 FLUZONE HIGH DOSE OVER 65 Unknown Completed [facility] Prevnar 20 (PCV20) Prevnar 20 (PCV20) Unknown Completed [facility] Moderna COVID-19 Vaccine Moderna COVID-19 Vaccine Unknown Completed [facility] Fluarix (IIV4) - SDS - 0.5mL Fluarix (IIV4) - SDS - 0.5mL Unknown Completed [facility] FluAD FluAD Unknown Completed [facility] Afluria Afluria Unknown Completed [facility] Flucelvax (ccIIV4) - SDS - 0.5mL Flucelvax (ccIIV4) - SDS - 0.5mL Unknown Completed [facility] FLUZONE HIGH DOSE OVER 65 FLUZONE HIGH DOSE OVER 65 Unknown Completed [facility] Prevnar 20 (PCV20) Prevnar 20 (PCV20) Unknown Completed [facility] Moderna COVID-19 Vaccine Moderna COVID-19 Vaccine Unknown Completed [facility] Fluarix (IIV4) - SDS - 0.5mL Fluarix (IIV4) - SDS - 0.5mL Unknown Completed [facility] FluAD FluAD Unknown Completed [facility] Afluria Afluria Unknown Completed [facility] Flucelvax (ccIIV4) - SDS - 0.5mL Flucelvax (ccIIV4) - SDS - 0.5mL Unknown Completed [facility] FLUZONE HIGH DOSE OVER 65 FLUZONE HIGH DOSE OVER 65 Unknown Completed [facility] Prevnar 20 (PCV20) Prevnar 20 (PCV20) Unknown Completed [facility] Moderna COVID-19 Vaccine Moderna COVID-19 Vaccine Unknown Completed [facility] Fluarix (IIV4) - SDS - 0.5mL Fluarix (IIV4) - SDS - 0.5mL Unknown Completed [facility] FluAD FluAD Unknown Completed [facility] Afluria Afluria Unknown Completed [facility] Flucelvax (ccIIV4) - SDS - 0.5mL Flucelvax (ccIIV4) - SDS - 0.5mL Unknown Completed [facility] FLUZONE HIGH DOSE OVER 65 FLUZONE HIGH DOSE OVER 65 Unknown Completed [facility] Prevnar 20 (PCV20) Prevnar 20 (PCV20) Unknown Completed [facility] Moderna COVID-19 Vaccine Moderna COVID-19 Vaccine Unknown Completed [facility] Fluarix (IIV4) - SDS - 0.5mL Fluarix (IIV4) - SDS - 0.5mL Unknown Completed [facility] FluAD FluAD Unknown Completed [facility] Afluria Afluria Unknown Completed [facility] Flucelvax (ccIIV4) - SDS - 0.5mL Flucelvax (ccIIV4) - SDS - 0.5mL Unknown Completed [facility] FLUZONE HIGH DOSE OVER 65 FLUZONE HIGH DOSE OVER 65 Unknown Completed [facility] Prevnar 20 (PCV20) Prevnar 20 (PCV20) Unknown Completed [facility] Moderna COVID-19 Vaccine Moderna COVID-19 Vaccine Unknown Completed [facility] Fluarix (IIV4) - SDS - 0.5mL Fluarix (IIV4) - SDS - 0.5mL Unknown Completed [facility] FluAD FluAD Unknown Completed [facility] Afluria Afluria Unknown Completed [facility] Flucelvax (ccIIV4) - SDS - 0.5mL Flucelvax (ccIIV4) - SDS - 0.5mL Unknown Completed [facility] FLUZONE HIGH DOSE OVER 65 FLUZONE HIGH DOSE OVER 65 Unknown Completed [facility] Prevnar 20 (PCV20) Prevnar 20 (PCV20) Unknown Completed [facility] Moderna COVID-19 Vaccine Moderna COVID-19 Vaccine Unknown Completed [facility] Fluarix (IIV4) - SDS - 0.5mL Fluarix (IIV4) - SDS - 0.5mL Unknown Completed [facility] FluAD FluAD Unknown Completed [facility] Afluria Afluria Unknown Completed [facility] Flucelvax (ccIIV4) - SDS - 0.5mL Flucelvax (ccIIV4) - SDS - 0.5mL Unknown Completed [facility] FLUZONE HIGH DOSE OVER 65 FLUZONE HIGH DOSE OVER 65 Unknown Completed [facility] Prevnar 20 (PCV20) Prevnar 20 (PCV20) Unknown Completed [facility] Moderna COVID-19 Vaccine Moderna COVID-19 Vaccine Unknown Completed [facility] Fluarix (IIV4) - SDS - 0.5mL Fluarix (IIV4) - SDS - 0.5mL Unknown Completed [facility] FluAD FluAD Unknown Completed [facility] Afluria Afluria Unknown Completed [facility] Flucelvax (ccIIV4) - SDS - 0.5mL Flucelvax (ccIIV4) - SDS - 0.5mL Unknown Completed [facility] FLUZONE HIGH DOSE OVER 65 FLUZONE HIGH DOSE OVER 65 Unknown Completed [facility] Prevnar 20 (PCV20) Prevnar 20 (PCV20) Unknown Completed [facility] Moderna COVID-19 Vaccine Moderna COVID-19 Vaccine Unknown Completed [facility] Fluarix (IIV4) - SDS - 0.5mL Fluarix (IIV4) - SDS - 0.5mL Unknown Completed [facility] FluAD FluAD Unknown Completed [facility] Afluria Afluria Unknown Completed [facility] Flucelvax (ccIIV4) - SDS - 0.5mL Flucelvax (ccIIV4) - SDS - 0.5mL Unknown Completed [facility] FLUZONE HIGH DOSE OVER 65 FLUZONE HIGH DOSE OVER 65 Unknown Completed [facility] Prevnar 20 (PCV20) Prevnar 20 (PCV20) Unknown Completed [facility] Moderna COVID-19 Vaccine Moderna COVID-19 Vaccine Unknown Completed [facility] Fluarix (IIV4) - SDS - 0.5mL Fluarix (IIV4) - SDS - 0.5mL Unknown Completed [facility] FluAD FluAD Unknown Completed [facility] Afluria Afluria Unknown Completed [facility] Flucelvax (ccIIV4) - SDS - 0.5mL Flucelvax (ccIIV4) - SDS - 0.5mL Unknown Completed [facility] FLUZONE HIGH DOSE OVER 65 FLUZONE HIGH DOSE OVER 65 Unknown Completed [facility] Prevnar 20 (PCV20) Prevnar 20 (PCV20) Unknown Completed [facility] Moderna COVID-19 Vaccine Moderna COVID-19 Vaccine Unknown Completed [facility] Fluarix (IIV4) - SDS - 0.5mL Fluarix (IIV4) - SDS - 0.5mL Unknown Completed [facility] FluAD FluAD Unknown Completed [facility] Afluria Afluria Unknown Completed [facility] Flucelvax (ccIIV4) - SDS - 0.5mL Flucelvax (ccIIV4) - SDS - 0.5mL Unknown Completed [facility] FLUZONE HIGH DOSE OVER 65 FLUZONE HIGH DOSE OVER 65 Unknown Completed [facility] Prevnar 20 (PCV20) Prevnar 20 (PCV20) Unknown Completed [facility] Moderna COVID-19 Vaccine Moderna COVID-19 Vaccine Unknown Completed [facility] Fluarix (IIV4) - SDS - 0.5mL Fluarix (IIV4) - SDS - 0.5mL Unknown Completed [facility] FluAD FluAD Unknown Completed [facility] Afluria Afluria Unknown Completed [facility] Flucelvax (ccIIV4) - SDS - 0.5mL Flucelvax (ccIIV4) - SDS - 0.5mL Unknown Completed [facility] FLUZONE HIGH DOSE OVER 65 FLUZONE HIGH DOSE OVER 65 Unknown Completed [facility] Prevnar 20 (PCV20) Prevnar 20 (PCV20) Unknown Completed [facility] Moderna COVID-19 Vaccine Moderna COVID-19 Vaccine Unknown Completed [facility] Fluarix (IIV4) - SDS - 0.5mL Fluarix (IIV4) - SDS - 0.5mL Unknown Completed [facility] FluAD FluAD Unknown Completed [facility] Afluria Afluria Unknown Completed [facility] Flucelvax (ccIIV4) - SDS - 0.5mL Flucelvax (ccIIV4) - SDS - 0.5mL Unknown Completed [facility] FLUZONE HIGH DOSE OVER 65 FLUZONE HIGH DOSE OVER 65 Unknown Completed [facility] Vital Signs Vital Name Observation Time Observation Value Comments S ource height 2023-05-17 08:50:00 68 [in_i] Commo n [facility] weight 2023-05-17 08:50:00 220.0 [lb_av] Co mmon [facility] temperature 2023-05-17 08:50:00 97.4 [degF] Com mon [facility] bmi 2023-05-17 08:50:00 33.45 kg/m2 Comm on [facility] oximetry 2023-05-17 08:50:00 99 % Commo n [facility] respiratory rate 2023-05-17 08:50:00 17 /min [facility] blood pressure systolic 2023-05-17 08:50:00 126 mm[Hg] [facility] blood pressure diastolic 2023-05-17 08:50:00 69 mm[Hg] [facility] height 2023-05-17 08:50:00 68 [in_i] Commo n [facility] weight 2023-05-17 08:50:00 220.0 [lb_av] Co mmon [facility] temperature 2023-05-17 08:50:00 97.4 [degF] Com mon [facility] bmi 2023-05-17 08:50:00 33.45 kg/m2 Comm on [facility] oximetry 2023-05-17 08:50:00 99 % Commo n [facility] respiratory rate 2023-05-17 08:50:00 17 /min [facility] blood pressure systolic 2023-05-17 08:50:00 126 mm[Hg] [facility] blood pressure diastolic 2023-05-17 08:50:00 69 mm[Hg] [facility] height 2023-04-02 08:00:00 68 [in_i] Commo n [facility] weight 2023-04-02 08:00:00 220 [lb_av] Comm on [facility] bmi 2023-04-02 08:00:00 33.45 kg/m2 Comm on [facility] Body Weight 2023-03-20 00:00:00 167 [lb_av] [facility] Height 2023-03-20 00:00:00 68 [in_i] [facility] BMI (Body Mass Index) 2023-03-20 00:00:00 25.4 kg/m2 [facility] height 2023-03-09 09:00:00 68 [in_i] Commo n [facility] weight 2023-03-09 09:00:00 221 [lb_av] Comm on [facility] bmi 2023-03-09 09:00:00 33.6 kg/m2 Commo n [facility] height 2022-11-21 09:20:00 68 [in_i] Commo n [facility] weight 2022-11-21 09:20:00 221.0 [lb_av] Co mmon [facility] temperature 2022-11-21 09:20:00 97.4 [degF] Com mon [facility] bmi 2022-11-21 09:20:00 33.6 kg/m2 Commo n [facility] oximetry 2022-11-21 09:20:00 99 % Commo n [facility] respiratory rate 2022-11-21 09:20:00 18 /min [facility] blood pressure systolic 2022-11-21 09:20:00 130 mm[Hg] [facility] blood pressure diastolic 2022-11-21 09:20:00 72 mm[Hg] [facility] height 2022-11-09 09:00:00 68 [in_i] Commo n [facility] weight 2022-11-09 09:00:00 221 [lb_av] Comm on [facility] temperature 2022-11-09 09:00:00 98.4 [degF] Com mon [facility] bmi 2022-11-09 09:00:00 33.6 kg/m2 Commo n [facility] blood pressure systolic 2022-11-09 09:00:00 130 mm[Hg] [facility] blood pressure diastolic 2022-11-09 09:00:00 74 mm[Hg] [facility] height 2022-11-07 13:20:00 68 [in_i] Commo n [facility] weight 2022-11-07 13:20:00 220 [lb_av] Comm on [facility] temperature 2022-11-07 13:20:00 98.3 [degF] Com mon [facility] bmi 2022-11-07 13:20:00 33.45 kg/m2 Comm on [facility] oximetry 2022-11-07 13:20:00 99 % Commo n [facility] respiratory rate 2022-11-07 13:20:00 16 /min [facility] blood pressure systolic 2022-11-07 13:20:00 126 mm[Hg] [facility] blood pressure diastolic 2022-11-07 13:20:00 78 mm[Hg] [facility] height 2022-10-09 09:20:00 68 [in_i] Commo n [facility] weight 2022-10-09 09:20:00 220 [lb_av] Comm on [facility] temperature 2022-10-09 09:20:00 97.0 [degF] Com [facility] bmi 2022-10-09 09:20:00 33.45 kg/m2 Comm on [facility] oximetry 2022-10-09 09:20:00 97 % Commo n [facility] respiratory rate 2022-10-09 09:20:00 17 /min [facility] blood pressure systolic 2022-10-09 09:20:00 117 mm[Hg] [facility] blood pressure diastolic 2022-10-09 09:20:00 72 mm[Hg] [facility] height 2022-08-21 13:30:00 68 [in_i] Commo n [facility] weight 2022-08-21 13:30:00 220 [lb_av] Comm on [facility] temperature 2022-08-21 13:30:00 97.3 [degF] Com [facility] bmi 2022-08-21 13:30:00 33.45 kg/m2 Comm on [facility] oximetry 2022-08-21 13:30:00 99 % Commo n [facility] respiratory rate 2022-08-21 13:30:00 17 /min [facility] blood pressure systolic 2022-08-21 13:30:00 137 mm[Hg] [facility] blood pressure diastolic 2022-08-21 13:30:00 73 mm[Hg] [facility] height 2022-08-21 13:00:00 68 [in_i] Commo n [facility] weight 2022-08-21 13:00:00 220 [lb_av] Comm on [facility] temperature 2022-08-21 13:00:00 97.3 [degF] Com mon [facility] bmi 2022-08-21 13:00:00 33.45 kg/m2 Comm on [facility] oximetry 2022-08-21 13:00:00 99 % Commo n [facility] respiratory rate 2022-08-21 13:00:00 17 /min [facility] blood pressure systolic 2022-08-21 13:00:00 137 mm[Hg] [facility] blood pressure diastolic 2022-08-21 13:00:00 73 mm[Hg] [facility] height 2021-12-12 08:20:00 68 [in_i] Commo n [facility] weight 2021-12-12 08:20:00 220 [lb_av] Comm on [facility] bmi 2021-12-12 08:20:00 33.45 kg/m2 Comm on [facility] Height 2021-12-12 00:00:00 68 [in_i] [facility] BMI (Body Mass Index) 2021-12-12 00:00:00 33.5 kg/m2 [facility] Body Weight 2021-12-12 00:00:00 220 [lb_av] [facility] height 2021-09-28 08:00:00 68 [in_i] Commo n [facility] weight 2021-09-28 08:00:00 220 [lb_av] Comm on [facility] temperature 2021-09-28 08:00:00 99.1 [degF] Com mon [facility] bmi 2021-09-28 08:00:00 33.45 kg/m2 Comm on [facility] blood pressure systolic 2021-09-28 08:00:00 125 mm[Hg] [facility] blood pressure diastolic 2021-09-28 08:00:00 70 mm[Hg] [facility] blood pressure systolic 2021-08-15 09:30:00 112 mm[Hg] [facility] blood pressure diastolic 2021-08-15 09:30:00 79 mm[Hg] [facility] height 2021-08-15 09:30:00 68 [in_i] Commo n [facility] weight 2021-08-15 09:30:00 195 [lb_av] Comm on [facility] bmi 2021-08-15 09:30:00 29.65 kg/m2 Comm on [facility] height 2021-07-18 08:30:00 68 [in_i] Commo n [facility] weight 2021-07-18 08:30:00 195 [lb_av] Comm on [facility] temperature 2021-07-18 08:30:00 97.7 [degF] Com mon [facility] bmi 2021-07-18 08:30:00 29.65 kg/m2 Comm on [facility] blood pressure systolic 2021-07-18 08:30:00 130 mm[Hg] [facility] blood pressure diastolic 2021-07-18 08:30:00 72 mm[Hg] [facility] height 2021-06-30 10:15:00 68 [in_i] Commo n [facility] weight 2021-06-30 10:15:00 195 [lb_av] Comm on [facility] bmi 2021-06-30 10:15:00 29.65 kg/m2 Comm on [facility] blood pressure systolic 2021-06-30 10:15:00 130 mm[Hg] [facility] blood pressure diastolic 2021-06-30 10:15:00 72 mm[Hg] [facility] height 2021-03-11 08:00:00 68 [in_i] Commo n [facility] weight 2021-03-11 08:00:00 200 [lb_av] Comm on [facility] temperature 2021-03-11 08:00:00 97.8 [degF] Com mon [facility] bmi 2021-03-11 08:00:00 30.41 kg/m2 Comm on [facility] Procedures Procedure Date / Time Performed Performing Clinician Source XR, knee, 1 or 2 view 2023-03-20 00:00:00 [facility] [id number] 2022-12-20 00:00:00 [facility] [id number] 2022-12-20 00:00:00 [facility] [id number] 2022-12-20 00:00:00 [facility] [id number] 2022-12-18 00:00:00 [facility] [id number] 2022-12-18 00:00:00 [facility] [id number] 2022-12-18 00:00:00 [facility] XR, knee, 4 or more view 2021-12-12 00:00:00 [facility] Encounters Start Date/Time End Date/Time Encounter Type Admission Type Attending Clinicians Care Facility Care Department Encounter ID Source 2023-07-05 15:33:00 Out[facility] [place] [id number] [facility] 2023-06-07 14:25:00 Outpatient Bhakta, Nikolay STLMLC STLMLC [id number] [facility] 2023-05-16 08:42:00 Outpatient Bhakta, Nikolay STLMLC STLMLC [id number] [facility] 2023-05-15 08:08:00 Outpatient Bhakta, Nikolay STLMLC STLMLC [id number] [facility] 2023-03-07 08:28:00 Outpatient Bhakta, Nikolay STLMLC STLMLC [id number] [facility] 2023-03-05 11:04:00 Outpatient Bhakta, Nikolay STLMLC STLMLC [id number] [facility] 2022-12-19 10:04:00 Outpatient Bhakta, Nikolay STLMLC STLMLC [id number] [facility] 2022-11-09 11:20:00 Outpatient Bhkata, Nikolay STLMLC STLMLC [id number] [facility] 2022-11-07 14:39:00 Outpatient Bhakta, Nikolay STLMLC STLMLC [id number] [facility] 2022-11-02 10:30:00 Outpatient Bhakta, Nikolay STLMLC STLMLC [id number] [facility] 2022-09-06 09:05:00 Outpatient Bhakta, Nikolay STLMLC STLMLC [id number] [facility] 2022-08-14 09:39:00 Outpatient Bhakta, Nikolay STLMLC STLMLC [id number] [facility] 2022-08-02 13:42:00 Outpatient KAMINI, Ofelia STLMLC STLMLC [id number] [facility] 2022-06-26 09:37:01 Outpatient Ofelia Khalil STLMLC STLMLC [id number] [facility] 2022-02-22 12:30:00 Inpatient Carlie Garrido HCATO HCATO [id number] [facility] 2022-01-27 09:45:01 Outpatient Good, Na STLMLC STLMLC [id number] [facility] 2022-01-03 08:06:00 Outpatient Good, Na STLMLC STLMLC [id number] [facility] 2021-12-08 08:08:00 Outpatient Good, Na STLMLC STLMLC [id number] [facility] 2021-10-04 11:22:00 Outpatient Good, Na STLMLC STLMLC [id number] [facility] 2021-09-26 09:17:00 Outpatient Good, Na STLMLC STLMLC [id number] [facility] 2021-08-23 09:54:00 Outpatient Good, Na STLMLC STLMLC [id number] [facility] 2021-06-27 08:14:00 Outpatient Good, Na STLMLC STLMLC [id number] [facility] 2021-06-24 11:35:01 Outpatient Good, Na STLMLC STLMLC [id number] [facility] 2021-06-07 10:43:00 Outpatient Good, Na STLMLC STLMLC [id number] [facility] 2021-05-18 16:35:00 Outpatient Good, Na STLMLC STLMLC [id number] [facility] 2021-03-23 14:34:30 Outpatient Good, Na STLMLC STLMLC [id number] [facility] 2021-03-23 14:00:26 Outpatient Good, Na STLMLC STLMLC [id number] [facility] 2021-03-23 13:58:30 Outpatient Good, Na STLMLC STLMLC [id number] [facility] 2021-03-23 13:57:22 Outpatient Good, Na STLMLC STLMLC [id number] [facility] 2021-03-23 13:23:44 Outpatient Good, Na STLMLC STLMLC [id number] [facility] 2021-03-23 12:45:34 Outpatient Good, Na STLMLC STLMLC [id number] [facility] 2021-03-23 12:36:03 Outpatient Good, Na STLMLC STLMLC [id number] [facility] 2021-03-23 12:21:11 Outpatient Good, Jannette STLMLC STLMLC [id number] [facility] 2021-03-23 12:09:34 Outpatient Good, Na STLMLC STLMLC [id number] [facility] 2021-03-23 11:58:50 Outpatient Good, Na STLMLC STLMLC [id number] [facility] 2021-03-23 11:33:44 Outpatient Good, Na STLMLC STLMLC [id number] [facility] 2021-03-23 11:31:40 Outpatient Good, Na STLMLC STLMLC [id number] [facility] 2021-03-23 11:18:14 Outpatient Good, Na STLMLC STLMLC [id number] [facility] 2021-03-23 11:16:56 Outpatient Good, Na STLMLC STLMLC [id number] [facility] 2023-07-09 00:00:00 2023-07-09 00:00:00 (TEL) STLMLC STLMLC [id number] [facility] 2023-07-06 00:00:00 2023-07-06 00:00:00 (TEL) STLMLC STLMLC [id number] [facility] 2023-07-06 00:00:00 2023-07-06 00:00:00 OFFICE VISIT NEW PT LEVEL 4 STLMLC STLMLC [id number] [facility] 2023-07-05 00:00:00 2023-07-05 00:00:00 (TEL) STLMLC STLMLC [id number] [facility] 2023-06-28 00:00:00 2023-06-28 00:00:00 (TEL) STLMLC STLMLC [id number] [facility] 2023-06-25 00:00:00 2023-06-25 00:00:00 (TEL) STLMLC STLMLC [id number] [facility] 2023-06-25 00:00:00 2023-06-25 00:00:00 (TEL) STLMLC STLMLC [id number] [facility] 2023-06-20 00:00:00 2023-06-20 00:00:00 (TEL) STLMLC STLMLC [id number] [facility] 2023-06-14 00:00:00 2023-06-14 00:00:00 (TEL) STLMLC STLMLC [id number] [facility] 2023-06-07 00:00:00 2023-06-07 00:00:00 (TEL) STLMLC STLMLC [id number] [facility] 2023-06-07 00:00:00 2023-06-07 00:00:00 (TEL) STLMLC STLMLC [id number] [facility] 2023-05-17 00:00:00 2023-05-17 00:00:00 OFFICE VISIT ESTAB PT LEVEL 4 STLMLC STLMLC [id number] [facility] 2023-05-17 00:00:00 2023-05-17 00:00:00 SUB ANNUAL [facility] VISIT STLMLC STLMLC [id number] [facility] 2023-05-17 00:00:00 2023-05-17 00:00:00 (TEL) STLMLC STLMLC [id number] [facility] 2023-05-10 00:00:00 2023-05-10 00:00:00 (TEL) STLMLC STLMLC [id number] [facility] 2023-04-02 00:00:00 2023-04-02 00:00:00 OFFICE VISIT ESTAB PT LEVEL 3 STLMLC STLMLC [id number] [facility] 2023-03-30 00:00:00 2023-03-30 00:00:00 (TEL) STLMLC STLC [id number] [facility] 2023-03-29 00:00:00 2023-03-29 00:00:00 (TEL) STLMLC STLMLC [id number] [facility] 2023-03-20 00:00:00 2023-03-20 00:00:00 Ian Monzon MD: [address] [place] [phone] , Ph. [phone] [place] [facility] [place] [facility] [place] [id number] [facility] 2023-03-09 00:00:00 2023-03-09 00:00:00 (TEL) STLMLC STLC [id number] [facility] 2023-03-09 00:00:00 2023-03-09 00:00:00 (EST. VIDEO) EST VIRTUAL VIDEO VISIT [facility] [id number] [facility] 2023-03-07 00:00:00 2023-03-07 00:00:00 Outpatient FOG_Behrens _Enrico_ AOSM AOSM [id number] [facility] 2023-03-05 00:00:00 2023-03-05 00:00:00 (TEL) [facility] [id number] [facility] 2023-02-23 00:00:00 2023-02-23 00:00:00 Outpatient FOG_Behrenchristian _Enrico_ AOSM AOSM [id number] [facility] 2023-02-20 00:00:00 2023-02-20 00:00:00 (TEL) [facility] [id number] [facility] 2023-01-01 00:00:00 2023-01-01 00:00:00 Outpatient FOG_Burke_R jennifer_ AOSM AOSM [id number] [facility] 2023-01-01 00:00:00 2023-01-01 00:00:00 Outpatient FOG_Burke_R jennifer_ AOSM AOSM [id number] [facility] 2023-01-01 00:00:00 2023-01-01 00:00:00 Outpatient FOG_Burke_R jennifer_ AOSM AOSM [id number] [facility] 2022-12-25 00:00:00 2022-12-25 00:00:00 Outpatient GC_GCBZW_Ka diyala_S PRIV PRIV [id number] [facility] 2022-12-24 00:00:00 2022-12-24 00:00:00 Outpatient GC_GCBZW_Ka diyala_S PRIV PRIV [id number] [facility] 2022-12-20 15:46:00 2022-12-21 16:12:00 Inpatient Ian Kerr HCATO SURG [id number] [facility] [place] [facility] 2022-12-08 16:36:00 2022-12-08 16:36:00 Outpatient Ian Monzon HCACL LABO [id number] 87 [facility] 2022-10-10 08:00:00 2022-12-08 16:00:00 Outpatient Carlie Simmons HCATO LABO [id number] [facility] 2022-12-08 10:50:00 2022-12-08 10:50:00 Outpatient Ian Kerr HCATO RADI [id number] [facility] [place] [facility] 2022-11-29 00:00:00 2022-11-29 00:00:00 Outpatient FOG_Burke_R [place] AOSM AOSM [id number] [facility] 2022-11-29 00:00:00 2022-11-29 00:00:00 Outpatient FOG_BurkeJr obJama[place] AOSM AOSM [id number] [facility] 2022-11-29 00:00:00 2022-11-29 00:00:00 Outpatient FOG_BurkeJonathanR Redd AOSM AOSM [id number] [facility] 2022-11-29 00:00:00 2022-11-29 00:00:00 Outpatient FOG_BurkeJr Rainey AOSM AOSM [id number] [facility] 2022-11-29 00:00:00 2022-11-29 00:00:00 Outpatient FOG_BurkeJonathanR [place] AOSM AOSM [id number] [facility] 2022-11-29 00:00:00 2022-11-29 00:00:00 Outpatient FOG_Burke_R [place] AOSM AOSM [id number] [facility] 2022-11-29 00:00:00 2022-11-29 00:00:00 Outpatient FOG_BurkeJonathanR [place] AOSM AOSM [id number] [facility] 2022-11-23 00:00:00 2022-11-23 00:00:00 (TEL) STLMLC STLMLC [id number] [facility] 2022-11-21 00:00:00 2022-11-21 00:00:00 OFFICE VISIT ESTAB PT LEVEL 4 STLMLC STLMLC [id number] [facility] 2022-11-14 00:00:00 2022-11-14 00:00:00 (TEL) STLMLC STLMLC [id number] [facility] 2022-11-13 00:00:00 2022-11-13 00:00:00 Outpatient FOG_Mukul_R Redd AOSM AOSM [id number] [facility] 2022-11-13 00:00:00 2022-11-13 00:00:00 Outpatient FOG_Mukul_R Redd AOSM AOSM [id number] [facility] 2022-11-13 00:00:00 2022-11-13 00:00:00 Outpatient FOG_Mkuul_R Redd AOSM AOSM [id number] [facility] 2022-11-13 00:00:00 2022-11-13 00:00:00 (TEL) STLMLC STLMLC [id number] [facility] 2022-11-09 00:00:00 2022-11-09 00:00:00 OFFICE VISIT NEW PT LEVEL 3 STLMLC STLMLC [id number] [facility] 2022-11-07 00:00:00 2022-11-07 00:00:00 OFFICE VISIT ESTAB PT LEVEL 4 STLMLC STLMLC [id number] [facility] 2022-11-07 00:00:00 2022-11-07 00:00:00 (TEL) STLMLC STLMLC [id number] [facility] 2022-11-02 00:00:00 2022-11-02 00:00:00 [facility]EL[facility] [id number] [facility] 2022-10-10 17:10:00 2022-10-10 17:10:00 Outpatient Carlie Garrido HCACL LABO [id number] 67 [facility] 2022-10-10 08:00:00 2022-10-10 09:00:00 Outpatient Ian Kerr HCATO 3DAY [id number] 76 [facility] 2022-10-09 00:00:00 2022-10-09 00:00:00 Outpatient TERRI_Olinda Rainey AOSM AOSM [id number] [facility] 2022-10-09 00:00:00 2022-10-09 00:00:00 Outpatient TERRI_Olinda Rainey AOSM AOSM [id number] [facility] 2022-10-09 00:00:00 2022-10-09 00:00:00 OFFICE VISIT ESTAB PT LEVEL 4 [facility] [id number] [facility] 2022-10-06 00:00:00 2022-10-06 00:00:00 (TEL) [facility] [id number] [facility] 2022-09-06 00:00:00 2022-09-06 00:00:00 (TEL) [facility] [id number] [facility] 2022-09-05 00:00:00 2022-09-05 00:00:00 Outpatient TERRI_Olinda Rainey AOSM AOSM [id number] [facility] 2022-08-21 00:00:00 2022-08-21 00:00:00 OFF[facility]ISIT [facility] [id number] [facility] 2022-08-21 00:00:00 2022-08-21 00:00:00 SUB ANNUAL MCR WELLNESS VISIT [facility] [id number] [facility] 2022-02-08 00:00:00 2022-02-08 00:00:00 (TEL) [facility] [id number] [facility] 2022-01-05 00:00:00 2022-01-05 00:00:00 Outpatient FOG_Burke_R [place] AOSM AOSM [id number] [facility] 2022-01-05 00:00:00 2022-01-05 00:00:00 Outpatient FOG_Burke_R Redd AOSM AOSM [id number] [facility] 2022-01-05 00:00:00 2022-01-05 00:00:00 Outpatient FOG_Burke_R Redd AOSM AOSM [id number] [facility] 2021-12-16 00:00:00 2021-12-16 00:00:00 Outpatient FOG_Burke_R Redd AOSM AOSM [id number] [facility] 2021-12-14 00:00:00 2021-12-14 00:00:00 (TEL) [facility] [id number] [facility] 2021-12-12 00:00:00 2021-12-12 00:00:00 Outpatient FOG_Burke_R Redd AOSM AOSM [id number] [facility] 2021-12-12 00:00:00 2021-12-12 00:00:00 [facility] [id number] [facility] 2021-12-12 00:00:00 2021-12-12 00:00:00 Carlie Garrido MD: [address] [place] [address] , Ph. [phone] AOSM [place] - [facility] [place] [facility] [id number] [facility] 2021-12-11 00:00:00 2021-12-11 00:00:00 Outpatient FOG_Burke_R jennifer_ AO AO [id number] [facility] 2021-12-09 00:00:00 2021-12-09 00:00:00 (TEL) STLMLC STLMLC [id number] [facility] 2021-11-02 00:00:00 2021-11-02 00:00:00 Outpatient FOG_Burke_R obdenis_ AO AO [id number] [facility] 2021-09-28 00:00:00 2021-09-28 00:00:00 OFFICE VISIT ESTAB PT LEVEL 4 STLMLC STLMLC [id number] [facility] 2021-09-12 12:59:00 2021-09-12 12:59:00 Outpatient FOG_Burke_R Redd AO AO [id number] [facility] 2021-08-24 00:00:00 2021-08-24 00:00:00 (TEL) STLMLC STLMLC [id number] [facility] 2021-08-15 00:00:00 2021-08-15 00:00:00 OFFICE VISIT EST PT LEVEL 3 STLMLC STLMLC [id number] [facility] 2021-07-18 00:00:00 2021-07-18 00:00:00 OFFICE VISIT EST PT LEVEL 3 STLMLC STLMLC [id number] [facility] 2021-07-06 00:00:00 2021-07-06 00:00:00 (TEL) STLMLC STLMLC [id number] [facility] 2021-06-30 00:00:00 2021-06-30 00:00:00 OFFICE VISIT NEW PT LEVEL 3 STLMLC STLMLC [id number] [facility] 2021-06-29 00:00:00 2021-06-29 00:00:00 OL DIG E/M SVC 21+ MIN STLMLC STLMLC [id number] [facility] 2021-06-24 00:00:00 2021-06-24 00:00:00 (TEL) STLMLC STLMLC [id number] [facility] 2021-03-11 00:00:00 2021-03-11 00:00:00 OFFICE VISIT ESTAB PT LEVEL 4 STLMLC STLMLC [id number] [facility] 2020-12-03 00:00:00 2020-12-03 00:00:00 OFFICE VISIT ESTAB PT LEVEL 4 STLMLC STLMLC [id number] [facility] 2020-10-06 00:00:00 2020-10-06 00:00:00 (TEL) STLMLC STLMLC [id number] [facility] 2020-09-03 00:00:00 2020-09-03 00:00:00 Outpatient STLMLC STLMLC [id number] [facility] 2020-09-03 00:00:00 2020-09-03 00:00:00 Outpatient STLMLC STLMLC [id number] [facility] 2020-08-23 00:00:00 2020-08-23 00:00:00 (TEL) STLMLC STLMLC [id number] [facility] 2020-06-28 00:00:00 2020-06-28 00:00:00 Outpatient STLMLC STLMLC [id number] [facility] 2020 00:00:00 2020 00:00:00 Outpatient STLMLC STLMLC [id number] [facility] 2020-01-29 00:00:00 2020-01-29 00:00:00 Outpatient STLMLC STLMLC [id number] [facility] 2020-01-29 00:00:00 2020-01-29 00:00:00 Outpatient STLMLC STLMLC [id number] [facility] 2019-09-15 00:00:00 2019-09-15 00:00:[address] [facility] [id number] [facility] 2019-06-16 08:40:00 2019-06-16 08:40:[address] [facility] [id number] [facility] 2019-05-30 15:47:00 2019-05-30 15:47:[address] [facility] [id number] [facility] 2019-02-07 08:40:00 2019-02-07 08:40:[address] [facility] [id number] [facility] 2019-01-30 16:14:00 2019-01-30 16:14:[address] [facility] [id number] [facility] 2018-11-08 08:40:00 2018-11-08 08:40:[address] [facility] [id number] [facility] 2018-10-22 08:20:00 2018-10-22 08:20:[address] [facility] [facility] [id number] [facility] 2018-05-06 08:30:00 2018-05-06 08:30:[address] [facility] [id number] [facility] Results Test Description Test Time Test Comments Results Resul t Comments Source - XR KNEE 1 OR 2 V RT 2022-12-19 10:07:00 [facility] 1960 Sex: F Patient Name: YOUNG FIGUEROA Unit No: [id number] EXAMS: CPT CODE: [id number] XR KNEE 1 OR 2 V RT 28274 IMAGES PROVIDED: 2 FINDINGS: Postoperative changes from right total knee arthoplasty demonstrated without evidence of immediate complication. No acute fracture is visualized. IMPRESSION: Postoperative exam as above. at 1007 Reported and signed by: Brendon Delgadillo M.D. CC: Ian Monzon MD Technologist: RAFFI PEREZ ARRT Transcribed D/ (1007) JanetteSLJ [facility] NAME: YOUNG FIGUEROA [address] [facility] PHYS: Ian Mix MD : 1960 AGE: 62 SEX: F [place] [address] LOC: Y.504 A PHONE #: [phone] EXAM DATE: 12/18/2022 STATUS: ADM IN FAX #: [phone] RAD #: D/C DT PAGE 1 Signed Report Patient Name: YOUNG FIGUEROA Unit No: [id number] EXAMS: CPT CODE: [id number] XR KNEE 1 OR 2 V RT 20371 (Continued) Orig Print D/T: S: 12/20/2022 (0735) [facility] NAME: YOUNG FIGUEROA [address] [facility] PHYS: Ian Mix MD : 1960 AGE: 62 SEX: F [place] [address] LOC: Y.504 A PHONE #: [phone] EXAM DATE: 12/18/2022 STATUS: ADM IN FAX #: [phone] RAD #: D/C DT PAGE 2 Signed Report SPECIMEN COMMENT: POD #1- US EXTREM NON VASC [id number] 08:06:00 [facility] 1960 Sex: F Patient Name: YOUNG FIGUEROA Unit No: [id number] EXAMS: CPT CODE: [id number] US EXTREM NON VASC COMP 44236 TECHNIQUE: Callaway scale and Doppler sonographic evaluation of right knee was performed dedicatedto the region of clinical concern. Longitudinal and [...] MONICA EASLEY RDMS, RVT Transcribed D/ (0806) JanetteSLJ [facility] NAME: YOUNG FIGUEROA [address] [facility] PHYS: UNDEFINED - Undefined Provider : 1960GE: 62 SEX: F [place], [place] [address] LOC: Y.RAD PHONE #: [phone] EXAM DATE: 12/08/2022 STATUS: GENOVEVA CLI FAX #: [phone] RAD #: D/C DT PAGE 1 Signed Report Patient Name: YOUNG FIGUEROA Unit No: [id number] EXAMS: CPT CODE: [id number] US EXTREM NON VASC COMP 60309 (Continued) Orig Print D/T: S: 12/11/2022 (0809) [facility] NAME: YOUNG FIGUEROA [address] [facility] PHYS: UNDEFINED - Undefined Provider : 1960 AGE: 62 SEX: F [place], [place] [address] LOC: MARY PHONE #: [phone] EXAM DATE: 12/08/2022 STATUS: DEP CLI FAX #: [phone] RAD #: D/C DT PAGE 2 Signed [...] patients.DONE AT: [facility] [address] [place] [address] GLYCOSYLATED HEMOGLOBIN (HA1C)2022-12-08 21:01:00* Test Item Value [...] be considered for these patients. COMPREHENSIVE METABOLIC [id number] 14:03:00* Test Item Value Reference Range Interpretation [...] ALKP) 109 U/L 46-116 N C REACTIVE [id number] 14:02:00* Test Item Value Reference Range Interpretation Comme nts C REACTIVE PROTEIN (test code = CRP) 2.54 mg/dL < 0.3 H Please note ne w normal range. CBC W/AUTO [id number] 12:24:00* Test Item Value Reference Range Interpretation [...] = NRBC) 0 % 0-0 N PROTHROMBIN [id number] 12:24:00* Test Item Value Reference Range Interpretation [...] intravascular valves IS PATIENT ON ANTICOAGULANTS ? [facility] been notified if Patient is on Heparin Drip? NOTHROMBOPLASTIN TIME [id number] 12:24:00* Test Item Value Reference Range Interpretation Comme nts PTT ACTIVATED (test code = APTT) 33.5 secs 25.1-36.5 N IS PATIENT ON ANTICOAGULANTS ? [facility] been notified if Patient is on Heparin Drip? NOTSH REFLEX TO FREE [id number] 00:00:00* Test Item Value Reference Range Interpretation Comme nts TSH REFLEX TO FREE T4 (test code = 04467-8) >100.000 UIU/ML See_Comment H [Automated [employer]] The system which generated this result transmitted reference range: 0.400-4.100 UIU/ML. The reference range was not used to interpret this result as normal/abnormal. CBC W/AUTO [id number] 00:00:00* Test Item Value Reference Range Interpretation Comme nts NUCLEATED RBCS (test code = 06223-8) 0.0 /100 WBC'S See_Comment [Automated messa [employer]] The system which generated this result transmitted reference range: 0.0 /100 WBC'S. The reference range was not used to interpret this result as normal/abnormal. ABSOLUTE EOSINOPHILS (test code = 36854-6) 0.00 K/UL See_Comment [Automated messa ge] The system which generated this result transmitted reference range: 0.00-0.50 K/UL. The reference range was not used to interpret this result as normal/abnormal. ABSOLUTE LYMPHOCYTES (test code = 53904-9) 1.46 K/UL See_Comment [Automated messa ge] The system which generated this result transmitted reference range: 1.00-4.00 K/UL. The reference range was not used to interpret this result as normal/abnormal. ABSOLUTE MONOCYTES (test code = 87923-7) 0.71 K/UL See_Comment [Automated messa ge] The system which generated this result transmitted reference range: 0.20-1.00 K/UL. The reference range was not used to interpret this result as normal/abnormal. ABSOLUTE NEUTROPHILS (test code = 15743-6) 6.05 K/UL See_Comment [Automated messa ge] The system which generated this result transmitted reference range: 1.50-7.50 K/UL. The reference range was not used to interpret this result as normal/abnormal. BASOPHILS (test code = 79536-5) 0.6 % EOSINOPHILS (test code = 57427-1) 0.0 % HEMATOCRIT (test code = 63452-5) 37.6 % See_Comment [Automated messa ge] The [...] result as normal/abnormal. LYMPHOCYTES (test code = 02204-3) 17.6 % MCH (test code = 39213-5) 32.0 PG See_Comment [Automated messa ge] The system which generated this result transmitted reference range: 25.0-33.0 PG. The reference range was not used to interpret this result as normal/abnormal. MCHC (test code = 35854-8) 33.8 G/DL See_Comment [Automated messa ge] The system which generated this result transmitted reference range: 31.0-36.0 G/DL. The reference range was not used to interpret this result as normal/abnormal. MCV (test code = 04530-0) 94.7 fL See_Comment [Automated messa ge] The system which generated this result transmitted reference range: 80.0-99.0 fL. The reference range was not used to interpret this result as normal/abnormal. MONOCYTES (test code = 50682-2) 8.6 % NEUTROPHILS (test code = 18871-3) 72.8 % PLATELET COUNT (test code = 71862-8) 329 K/UL See_Comment [Automated messa ge] The system which generated this result transmitted reference range: 130-400 K/UL. The reference range was not used to interpret this result as normal/abnormal. RBC (test code = 07009-4) 3.97 M/UL See_Comment [Automated messa ge] The system which generated this result transmitted reference range: 3.80-5.40 M/UL. The reference range was not used to interpret this result as normal/abnormal. RDW (test code = 77032-2) 14.5 % See_Comment [Automated messa ge] The system which generated this result transmitted reference range: 11.5-15.0 %. The reference range was not used to interpret this result as normal/abnormal. WBC (test code = 70842-3) 8.3 K/UL See_Comment [Automated messa ge] The system which generated this result transmitted reference range: 3.5-11.0 K/UL. The reference range was not used to interpret this result as normal/abnormal. HEMOGLOBIN [id number] 00:00:00* Test Item Value Reference Range Interpretation Comme nts HEMOGLOBIN A1c (test code = 4548-4) 5.0 % See_Comment [Automated messa ge] The system which generated this result transmitted reference range: 4.2-5.6 %. The reference range was not used to interpret this result as normal/abnormal. FREE T4 (THYROXINE)2022-11-21 00:00:00* Test Item Value Reference Range Interpretation Comme nts FREE T4 (THYROXINE) (test code = 3024-7) 0.73 NG/DL See_Comment L [Automated messa ge] The system which generated this result transmitted reference range: 0.80-1.90 NG/DL. The reference range was not used to interpret this result as normal/abnormal. HEPATITIS C UKBVAMEB0194-76-15 00:00:00* Test Item Value Reference Range Interpretation [facility] HEPATITIS C ANTIBODY (test c ode = 15617-6) NON-REACTIVE NON-REACTIVE LIPID PANEL WITH REFLEX DIRECT [id number] 00:00:00* Test Item Value Reference Range Interpretation [facility] CALC LDL CHOL (test code = 68438-6) 62 MG/DL See_Comment [Automated [employer] ge] The system which generated this result transmitted reference range: <100 MG/DL. The reference range was not used to interpret this result as normal/abnormal. CHOLESTEROL (test code = 2093-3) 146 MG/DL See_Comment [Automated [employer] ge] The system which generated this result transmitted reference range: <200 MG/DL. The reference range was not used to interpret this result as normal/abnormal. HDL CHOLESTEROL (test code = 2085-9) 71 MG/DL See_Comment [Automated [employer]] The system which generated this result transmitted reference range: >39 MG/DL. The reference range was not used to interpret this result as normal/abnormal. RISK RATIO LDL/HDL (test code = 15953-4) 0.87 RATIO See_Comment [Automated message] The system which generated this result transmitted reference range: <3.22 RATIO. The reference range was not used to interpret this result as normal/abnormal. TRIGLYCERIDES (test code = 2571-8) 54 MG/DL See_Comment [Automated [employer] ge] The system which generated this result transmitted reference range: <150 MG/DL. The reference range was not used to interpret this result as normal/abnormal. COMPREHENSIVE METABOLIC [id number] 00:00:00* Test Item Value Reference Range Interpretation [facility] ALBUMIN (test code = 1751-7) 4.1 G/DL See_Comment [Automated [employer] ge] The system which generated this result [...] result as normal/abnormal. CALCIUM (test code = 60485-4) 9.5 MG/DL See_Comment [Automated messa ge] The [...] as normal/abnormal. CALC GLOBULIN (test code = 60286-3) 3.2 G/DL See_Comment [Automated messa ge] The [...] normal/abnormal. eGFR (2020 CKD-EPI) (test code = 37397-4) 103 ML/MIN/1.73 See_Comment [Automated message] The system [...] interpret this result as normal/abnormal. COMPREHENSIVE METABOLIC OGMZK8749-49-42 14:27:00* Test Item Value Reference Range Interpretation [...] = ALKP) 81 U/L 46-116 N PROTHROMBIN DCCC0849-03-60 13:31:00* Test Item Value Reference Range Interpretation [...] intravascular valves IS PATIENT ON ANTICOAGULANTS ? NHas Lab been notified if Patient is on Heparin Drip? NOTHROMBOPLASTIN TIME FFOHMIQ8144-17-59 13:31:00* Test Item Value Reference Range Interpretation Comme nts PTT ACTIVATED (test code = APTT) 37.0 secs 25.1-36.5 H IS PATIENT ON ANTICOAGULANTS ? NHas Lab been notified if Patient is on Heparin Drip? NOCBC W/AUTO HIHV1799-79-09 13:05:00* Test Item Value Reference Range Interpretation [...] Notes Date/Time Note Provider Source 2023-01-25 12:51:00 [id number] dh38YlIcnSh4VdeUEt7yq+LmtJc9J ZApRjVrIPbwIG9yJeBYbdOpHPbY4711-06-01Z54:51:00 [facility] ([facility])Discharge SummaryREPORT#:[id number] REPORT STATUS: SignedREPORT INITIALIZATION DATE:01/25/23 TIME: 1251 PATIENT: YOUNG FIGUEROA UNIT #: [id number]#: [id number] [facility] AGE: 62 SEX: F ATTEND: Ian Monzon MDADM AUTHOR: Ian Monzon MDREPT SERVICE DT/TIME: 12/21/22 1251* ALL edits or amendments must be made on the electronic/computer document * PCP PCPPCP:PCP: Ian Monzon MD Discharge to: home General InformationDate of admission:Observation Start Date: 12/18/22Date of admission: 12/20/22 Discharge date: 12/21/22Discharge diagnosis:Right distal femur fracture, cocopah knee fusionHospital course: Discharge Diagnosis: Right Knee distal femur fracture, cocopah knee fusion s/p complex right distal femoral [...] Will undergo PT for gait training, mobilization, tmygx-ae-rhfslc, and strengthening. Patient was informed that they need to arrange for therapy as quickly as possible. The importance of early advancement of cnwqi-xr-eascxc withhome exercises, and physical therapy was stressed [...] TO SCHEDULE A FOLLOW-UP APPOINTMENT at [address] [facility] #:[id number] OF REPORT DSDischarge xbzyvdy8731-28-36L30:51:00Y.HVHF74652493-0509RVVt ailable for patient swfxZEIUNBZPEFOHKE8338-85-20H98:57:07 [facility] 2022-12-21 09:29:00 [id number] Gd6zfzlGs16Ct5FnhJMZ+8D/bYHon[facility] f16uqxP8lTd6Qwd2TgGmEZntx2s5058-43-92P26:29:00 [facility] ([facility])Clinical NoteREPORT#:[id number] REPORT STATUS: SignedREPORT INITIALIZATION DATE:12/21/22 TIME: 928 PATIENT: YOUNG FIGUEROA UNIT #: [id number]#: [id number] ROOM/BED: 504-ADOB: [birth year] AGE: 62 SEX: F ATTEND: Ian Monzon MDADM AUTHOR: Miguel Angel Howe MDREPT SERVICE DT/TIME: 12/21/22928* ALL edits or amendments must be made on the electronic/computer document * Clinical NoteNote:[facility] Miguel Angel Kenney M.D. (cell text [phone]) Assessment/Plan1.) Anemia of acute blood loss- .Hgb [...] Miguel Angel Kenney M.D. at 1052 RPT #:[id number] OF REPORT CLClinical iige9781-28-10R08:29:00Y.SIMH67520813-0897XNVqqot able for patient hbagIVGCUVLRUYHNBE4458-35-31F61:53:47 [facility] 2022-12-21 08:27:00 M92369291969jL2QV0yd uQSkOJGjVlozImR9bX2PPrplO3FsG Khk8nsHPjW5aZw2kEHdum2GmOa82999-55-73B62:27:00 [facility] Progress NoteREPORT#:[id number] REPORT STATUS: SignedREPORT INITIALIZATION DATE:12/21/22 TIME: 826 PATIENT: YOUNG FIGUEROA UNIT #: [id number]#: [id number] ROOM/BED: [facility]-ADOB: [birth year] AGE: 62 SEX: F ATTEND: [...] weeks for wound check at 0829 RPT #:[id number] OF REPORT PRProgress drhm9699-16-54L78:27:00Y.XZQH93581772-0947EOSwbhj able for patient ozbkYHSKHMGWOAFZWE5906-17-05Z67:30:03 [facility] 2022-12-20 14:04:00 [id number] lST2Yyh8uyh0vtuhk4MBx/s9WmLU8 P8g93RdHUgHudjhErA6othWdKWP0766-27-39R56:04:00 [facility])DT Operative NoteREPORT#:[id number] REPORT STATUS: SignedREPORT INITIALIZATION DATE:12/20/22 TIME: 1403 PATIENT: YOUNG FIGUEROA UNIT #: [id number]#: [id number] [facility] [birth year] AGE: 62 SEX: F ATTEND: Ian [...] Primary Surgeon:Ian Monzon MD Co-surgeon:Eun Bhakta MD Research Test Engine Evaluator(s): Alida Santana MD and Haim Nails Complications: [...] replacing prosthesis. Goals of the procedure include tenriism of joint stability and motion as well as pain control in the setting of significantdeformity and altered anatomy. Paediatric Surgeon: The skilled assistance of the medical office receptionist assistant surgeon was necessary during this reconstructive [...] possible without the help of a skilled medical office receptionist assistant familiar with the procedure and capable [...] then prepped for a cone with the ASSET4 broach to a size B. The tibia [...] recovery in stable condition. at 1408 RPT #:[id number] OF REPORT OPOperative ujpicy3730-08-33P66:04:00Y.HGVJ56797330-3715OPSuw ilable for patient poapNEUZDQATUYSAIZ8776-15-68M55:08:24 [facility] 2022-12-20 14:00:00 J56105702170/4mxpqLT P6+v0K1zyNP0zqC4qHr+CLBbBZhJD CLRMMOoobGWdRGRvALR3WiPRbN06072-90-91Y88:00:00 [facility] ([facility])Orthopaedic Progress NoteREPORT#:[id number] REPORT STATUS: SignedREPORT INITIALIZATION DATE:12/20/22 TIME: 1400 PATIENT: YOUNG FIGUEROA UNIT #: [id number]#: [id number] [facility]: [birth year] AGE: 62 SEX: F ATTEND: Ian [...] plan for tomorrow 12/21 at 1404 RPT #:[id number] OF REPORT PRProgress mxfq2256-63-36Z71:00:00Y.KXWF96885739-3426YUUjfng able for patient hwimZSVROBXYOHXMLG2905-75-23H37:04:53 [facility] 09:40:00 [id number] 21u8gekiZxq/b3F+/HdwfCBroklr4 s/ZnX5AIsiFTDPR6qKKU2q4VxIA9901-48-37E91:40:00 [facility] ([facility])Clinical NoteREPORT#:[id number] REPORT STATUS: SignedREPORT INITIALIZATION DATE:12/20/22 TIME: 939 PATIENT: YOUNG FIGUEROA UNIT #: [id number]#: [id number] [facility] [birth year] AGE: 62 SEX: F ATTEND: Ian Monzon MDADM AUTHOR: Miguel Angel Howe MDREPT SERVICE DT/TIME: 12/20/22 0940* ALL edits or amendments must be made on the electronic/computer document * Clinical NoteNote:[facility] Miguel Angel Kenney M.D. (cell text [phone]) Assessment/Plan1.) Anemia of acute blood loss- .Hgb [...] Miguel Angel Kenney M.D. at 1158 RPT #:[id number] OF REPORT CLClinical qlsr9124-92-57P80:40:00Y.YGIA96918814-0367DGFxkgt able for patient gpkpBTZEIWMMNIZQEP0758-45-18X05:59:18 [facility] 2022-12-19 10:36:00 [id number] GlM4QFxrv2RnNrSPNEjcbkkYkwqFu boQwoyis628B5wCjS8xmTG461nP1629-53-58O09:36:00 [facility] ([facility])Orthopaedic Progress NoteREPORT#:[id number] REPORT STATUS: SignedREPORT INITIALIZATION DATE:12/19/22 TIME: 103 PATIENT: YOUNG FIGUEROA UNIT #: [id number]#: [id number] ROOM/BED: [facility]-ADOB: [birth year] AGE: 62 SEX: F ATTEND: [...] physical therapy, likely tomorrow 12/20 at [address] [facility] #:[id number] OF REPORT PRProgress tfhn7206-06-45Z15:36:00Y.YNHM24265394-6811YLEsvtx able for patient vnsuEPOMFYDWUIUZTY0029-36-12I54:42:18 [facility] 2022-12-19 09:38:00 [id number] XxhRQhoLY7mnwW2gY5HkiD8Q1d963 Frfz5bAJ++6+VsN5sChGW1m9m1y6017-32-73C67:38:00 [facility] ([facility])Clinical NoteREPORT#:[id number] REPORT STATUS: SignedREPORT INITIALIZATION DATE:12/19/22 TIME: 937 PATIENT: YOUNG FIGUEROA UNIT #: [id number]#: [id number] ROOM/BED: [facility]-ADOB: [birth year] AGE: 62 SEX: F ATTEND: Ian Monzon MDADM AUTHOR: Miguel Angel Howe MDREPT SERVICE DT/TIME: 12/19/22937* ALL edits or amendments must be made on the electronic/computer document * Clinical NoteNote:[facility] Miguel Angel Kenney M.D. (cell text [phone]) Assessment/Plan1.) Anemia of acute blood loss- .Hgb [...] knee immobilizer in place. Labs/X-ray: Laboratory Tests: 12/20 343 Hematology Hgb (12 - 16 g/dL) 9.2 L Hct (37 - 47 %) 27.5 L Miguel Angel Kenney M.D. at [address] [place] [address] #:[id number] OF REPORT CLClinical qfvv5685-24-30R42:38:00Y.IKHN97909143-6989MMOxnzp able for patient cvviLIWYTJAXONVOAB9526-53-13U58:38:38 [facility] 2022-12-18 15:52:00 [id number]+CRf WZNZLrVEOJcg0Xa8hzouEE/74AsEu dYoHEhj1cJoS4/z4YuLcW4lNFEN9439-56-52G57:52:00 [facility] ([facility])Clinical NoteREPORT#:[id number] REPORT STATUS: SignedREPORT INITIALIZATION DATE:12/18/22 TIME: 1551 PATIENT: YOUNG FIGUEROA UNIT #: [id number]#: [id number] [facility] [birth year] AGE: 62 SEX: F ATTEND: Ian Monzon MDADM AUTHOR: Miguel Angel Howe MDREPT SERVICE DT/TIME: 12/18/221551* ALL edits or amendments must be made on the electronic/computer document * Clinical NoteNote:[facility] Miguel Angel Kenney MD(cell text [phone])Internal Medicine Consult at request of : Dr. Ian Monzon Chief Complaint: right distal femur fracture HPI: 62 yo F is now s/p Right knee fusion takedown, complex primary right kneearthroplasty to distal femur replacement by Dr. Monzon Ms. Figueroa has a h/o cocopah knee fusion secondary to trauma and rheumatoid [...] normal parameters and a f/u plan is qsxxcwscuyL7128 - Patient screened for tobacco use AND identified as a tobacco non-nqil8085E - ACP discussion - default code status while at [facility]. at 2125 RPT #:[id number] OF REPORT CLClinical owte2284-22-14J71:52:00Y.JQBC58955439-2426VPAjmzc able for patient nyddGPKSTHORKQKWUN7085-22-39W11:25:29 [facility] 2022-12-18 11:46:00 [id number]+0 jM6efZnOCwQ2SEdE1BORpfvv3ZWFz EODvvOJj8usY+fi+g4CZ+ncWzLz8106-58-22Z67:46:00 [facility] ([facility])Brief Op NoteREPORT#:[id number] REPORT STATUS: SignedREPORT INITIALIZATION DATE:12/18/22 TIME: 1146 PATIENT: YOUNG FIGUEROA UNIT #: [id number]#: [id number] [facility]DOB[facility] [birth year] AGE: 62 SEX: F ATTEND: Ian Monzon MDADM AUTHOR: Ian Monzon MDREPT SERVICE DT/TIME: 12/18/22 1146* ALL edits or amendments must be made on the electronic/computer document * Op/Inv Proc Note - BriefPre-procedure diagnosis:R distal femur fracture, cocopah knee fusionPost-procedure diagnosis: same as pre procedure dx (same )Procedures performed:Right knee fusion takedown, complex primary knee arthroplasty to distal femoral replacement Primary Surgeon:Ian Monzon MDCo-surgeon:Eun Bhakta MDAssistant(s): Max CHAVARRIA and Haim Nails Findings:See dictated op noteComplications: noneEstimated blood loss in ml's: 150ccSpecimens removed/altered: none (distal femur malunited fractur), distal femur malunited fractureDrain(s): Bang Catheter PlacedWound class: clean at [address] [facility] #:[id number] OF REPORT OPOperative augzkf5070-54-18C67:46:00Y.MRHX22942826-6732AKBhg ilable for patient vuacBKWSKUIGQKVDCF6069-09-66E69:58:06 [facility] 2022-[facility]-10 11:27:00 [id number]+PSFWhzM ZUlHMASG3/mvLxLCs885c4oRqsZtk jxQZajf63z6Z7bOhhPYC3BWenE/5013-57-12C73:27:38134 7-0066 [facility] [place] [address] PATIENT NAME: YOUNG FIGUEROA ADMIT DATE: ACCOUNT NO: [id number] ROOM NO: AGE: 62 REPORT TYPE: ELECTROCARDIOGRAM SEX: F ADMITTING PHYSICIAN: ATTENDING PHYSICIAN:Carlie Garrido MD Order:[id number] Reason : PRE OP CLEARANCE HTN Test [...] previous ECGs availableConfirmed by WILLARD COOPER MD ([id number]) on 10/12/2022 12:28:11 PM Referred By: Carlie Garrido Confirmed by:WILLARD COOPER MD PATIENT NAME: YOUNG FIGUEROA .[id number] AVAvailable for patient xzenNBQKURTJSDUVMJ6244-95-35N58:28:33 [facility]
--- NOTE | 2023-07-10 08:38 | ER ---
Nurse's Notes [facility] Name: Young Gates Age: 63 yrs Sex: Female : 1960 Arrival Date: 07/10/2023 Time: 07:45 Bed 8 Private MD: Diagnosis: Other mechanical complication of urinary (indwelling) catheter Presentation: 07/09 07:45 Chief complaint: Patient states: "I went to bed at about 8pm last night and when I woke kc6 up in the night I felt a warmness and was covered in pee.". Coronavirus screen: At this time, the client does not indicate any symptoms associated with coronavirus-19. Ebola Screen: No symptoms or risks identified at this time. Initial Sepsis Screen: Does the patient meet any 2 criteria? HR > 90 bpm. Does the patient have a suspected source of infection? No. Patient's initial sepsis screen is negative. Risk Assessment: Do you want to hurt yourself or someone else? Patient reports no desire to harm self or others. Onset of symptoms was July 10, 2023. 07:45 Method Of Arrival: EMS: [facility] 07:45 Acuity: KJ 4 kc6 Triage Assessment: 07:47 General: Appears in no apparent distress. comfortable, unkempt, well developed, kc6 Behavior is calm, cooperative, appropriate for age. Pain: Denies pain. EENT: No signs and/or symptoms were reported regarding the EENT system. Neuro: Level of Consciousness is awake, alert, obeys commands, Oriented to person, place, time, situation, Appropriate for age. Cardiovascular: Capillary refill < 3 seconds. Respiratory: Airway is patent Trachea midline Respiratory effort is even, unlabored, Respiratory pattern is regular, symmetrical. GI: No signs and/or symptoms were reported involving the gastrointestinal system. : Bang in place to gravity drainage clamped Urine is clear. Derm: No signs and/or symptoms reported regarding the dermatologic system. Skin is intact, is healthy with good turgor, Skin is pink, warm \\T\\ dry. Musculoskeletal: No signs and/or symptoms reported regarding the musculoskeletal system. Historical: - Allergies: 07:47 Ampicillin; kc6 07:47 Azithromycin; kc6 07:47 Lisinopril; kc6 07:47 PENICILLINS; kc6 07:47 SHELLFISH; kc6 07:47 Chocolate; kc6 - PMHx: 07:47 Arthritis; Hypertension; Hypothyroidism; Kidney stones; Cerebrovascular accident; kc6 - PSHx: 07:47 Right knee replacement; kc6 - Immunization history:: Adult Immunizations unknown. - Infectious Disease History:: Denies. - Social history:: Smoking status: Patient denies any tobacco usage or history of. - Family history:: not pertinent. - Hospitalizations: : The patient was recently seen at [facility]. Screenin:49 [facility] ED Fall Risk Assessment (Adult) History of falling in the last 3 months, kc6 including since admission No falls in past 3 months (0 pts) Confusion or Disorientation No (0 pts) Intoxicated or Sedated No (0 pts) Impaired Gait Yes (1 pt) Mobility Assist Device Used Yes (1 pt) Altered Elimination Yes (1 pt) Score/Fall Risk Level 3 or more points = High Risk. Abuse screen: Denies threats or abuse. Denies injuries from another. Nutritional screening: No deficits noted. Tuberculosis screening: No symptoms or risk factors identified. Assessment: 07:49 Reassessment: please see triage. kc6 08:05 Reassessment: previous balloon from bang catheter deflated, 8mL of clear fluid. kc6 Vital Signs: 07:45 BP 119 / 85; Pulse 109; Resp 16 S; Temp 98.1(O); Pulse Ox 100% on R/A; Height 5 ft. 8 kc6 in. (R); 09:06 BP 117 / 82; Pulse 92; Resp 18; Pulse Ox 99% ; ko1 ED Course: 07:45 Patient arrived in ED. kc6 07:47 Earl Fuentes MD is Attending Physician. rn 07:47 Triage completed. kc6 07:47 Arm band placed on. kc6 07:49 Alyx Padilla, EUNICE is Primary Nurse. kc6 07:49 Patient has correct armband on for positive identification. Placed in gown. Bed in low kc6 position. Call light in reach. Side rails up X2. Client placed on continuous cardiac and pulse oximetry monitoring. NIBP monitoring applied. Warm blanket given. Pillow given. 08:06 Bang cath inserted, using sterile technique, 18 Fr., by me, by ED staff, balloon kc6 inflated, to gravity drainage, clamped. : Provided Education on: na. ko1 : No provider procedures requiring assistance completed. Patient did not have IV access ko1 during this emergency room visit. Administered Medications: No medications were administered Medication: : VIS not applicable for this client. ko1 Outcome: 08:37 Discharge ordered by . eunice : Discharged to home via ambulance, ko1 : Condition: stable : Discharge instructions given to patient, EMS, Instructed on discharge instructions, follow up and referral plans. Demonstrated understanding of instructions, follow-up care, :07 Patient left the ED. ko1 Signatures: Earl Fuentes MD MD rn Campbell, Kaitlyn, RN RN kc6 Luciana Mason RN RN ko1
--- NOTE | 2023-07-10 08:39 | EDPHYS ---
Physician Documentation [facility] Name: Young Gates Age: 63 yrs Sex: Female : 1960 Arrival Date: 07/10/2023 Time: 07:45 Bed 8 Private MD: ED Physician Earl Fuentes HPI: 07/09 08:05 This 63 yrs old Female presents to ER via EMS with complaints of Problem With Urinary rn Catheter. 08:05 The patient presents with urinary symptoms. Onset: The symptoms/episode began/occurred rn last night. Modifying factors: The symptoms are alleviated by nothing, the symptoms are aggravated by nothing. Severity of symptoms: At their worst the symptoms were mild, in the emergency department the symptoms are unchanged. The patient has not experienced similar symptoms in the past. Patient reports recent hospitalization, Patton catheter was replaced 2 weeks ago. Noticed last night began to leak around Patton catheter. Denies hematuria. Home health and provider messed with catheter and noticed a kink. Began to drain but then stopped draining once again.. Historical: - Allergies: 07:47 Ampicillin; kc6 07:47 Azithromycin; kc6 07:47 Lisinopril; kc6 07:47 PENICILLINS; kc6 07:47 SHELLFISH; kc6 07:47 Chocolate; kc6 - PMHx: 07:47 Arthritis; Hypertension; Hypothyroidism; Kidney stones; Cerebrovascular accident; kc6 - PSHx: 07:47 Right knee replacement; kc6 - Immunization history:: Adult Immunizations unknown. - Infectious Disease History:: Denies. - Social history:: Smoking status: Patient denies any tobacco usage or history of. - Family history:: not pertinent. - Hospitalizations: : The patient was recently seen at [facility]. ROS: 08:05 Constitutional: Negative for fever, chills, and weight loss, Cardiovascular: Negative rn for chest pain, palpitations, and edema, Respiratory: Negative for shortness of breath, cough, wheezing, and pleuritic chest pain, Abdomen/GI: Negative for abdominal pain, nausea, vomiting, diarrhea, and constipation, Back: Negative for injury and pain, : Positive for leaking around Patton catheter MS/Extremity: Negative for injury and deformity, Skin: Negative for injury, rash, and discoloration, Neuro: Negative for headache Exam: 08:05 Constitutional: This is a well developed, well nourished patient who is awake, alert, rn and in no acute distress. Cardiovascular: Tachycardic, regular. No pulse deficits. Respiratory: No increased work of breathing, no retractions or nasal flaring. Abdomen/GI: Soft, non-tender Female : Patton catheter in place, urine leakage around catheter noted. Vital Signs: 07:45 BP 119 / 85; Pulse 109; Resp 16 S; Temp 98.1(O); Pulse Ox 100% on R/A; Height 5 ft. 8 kc6 in. (R); 09:06 BP 117 / 82; Pulse 92; Resp 18; Pulse Ox 99% ; ko1 MDM: 07:47 Patient medically screened. rn 08:37 Differential diagnosis: Patton catheter malfunction. Data reviewed: vital signs, nurses rn notes, and as a result, I will discharge patient. Counseling: I had a detailed discussion with the patient and/or guardian regarding the historical points, exam findings, and any diagnostic results supporting the discharge/admit diagnosis, the need for outpatient follow up, to return to the emergency department if symptoms worsen or persist or if there are any questions or concerns that arise at home. Response to treatment: the patient's symptoms have resolved after treatment, the patient's condition has returned to base line, the patient is now symptom free, and as a result, I will discharge patient. Special discussion: I discussed with the patient/guardian in detail that at this point there is no indication for admission to the hospital. It is understood, however, that if the symptoms persist or worsen the patient needs to return immediately for re-evaluation. 07/09 07:47 Order name: Abdi; Complete Time: 08:04 rn Administered Medications: No medications were administered Disposition Summary: 07/10/23 08:37 Discharge Ordered Notes: Location: Home rn Problem: new rn Symptoms: have improved rn Condition: Stable rn Diagnosis - Other mechanical complication of urinary (indwelling) catheter rn Followup: rn - With: Private Physician - When: As needed - Reason: Recheck today's complaints, Re-evaluation by your physician Discharge Instructions: - Discharge Summary Sheet rn - Indwelling Urinary Catheter Care, Adult rn Forms: - Medication Reconciliation Form rn - 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
[2023-07-10 09:24] VITALS: BP 117/82; TEMP 98.1; O2SAT 99
== END 2023-07-10 09:07 | disposition home or self-care (01) ==
LOC: ER 07:45
PROC: 0T2BX0Z Change Drainage Device in Bladder, External Approach (ICD-10-PCS; principal; 2023-07-10)
DX: T83.098A Other mechanical complication of other urinary catheter, initial encounter (principal)
CPT/HCPCS: 51702; 99284

== ENCOUNTER 2023-07-22 17:22 | Emergency (ER) | payer OTHER ==
--- OUTSIDE RECORDS SUMMARY | 2023-07-22 17:31 | XMS REPORT | Continuity of Care Document ---
Author Name Unknown Address [address] [facility] [address] [place] [address] [facility] Address [address] 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 - DUAL ELIGIBLE (MEDICARE REPLACEMENT/ADVAN TAGE - HMO) [id number] 2022 00:00:00 [place]MEDICAID REPLACEMENT - HMO) [id number] 2018 00:00:[address] [facility] - DUAL COMPLETE - DUAL ELIGIBLE - SNP (MEDICARE-MEDICAI D REPLACEMENT HMO) [id number] - [facility] - DUAL COMPLETE FOCUS (MEDICARE REPLACEMENT HMO) [id number] MEDICAID MC [id number] 2012 00:00:00 [facility] MEDICARE NOVITAS MB [id number] 2010 00:00:00 [facility] [employer] (Medicaid) [id number] 2018 00:00:00 [facility] Problems Condition Name Condition Details [...] 00 [facility] [id number] Functional quadripleg ia Problem [facility] [id number] Microcytic anemia Problem [facility] [id number] Pressure injury of deep tissue of sacral region Problem [facility] [id number] Chronic ulcer of lower extremity, right, with unspecifie d severity Problem [facility] [id number] MRSA infection Problem [facility] [id number] S/P PICC central line placement Problem [facility] Encounter for Bang catheter replacemen t Encounter for Bang catheter replacemen t Problem [facility] [id number] Incontinen ce of feces, unspecifie d fecal incontinen ce type Problem [facility] [id number] Urinary incontinen ce, unspecifie d type Problem [facility] [id number] Sacral osteomyeli tis Problem [facility] [id number] Seasonal allergic rhinitis due to pollen Problem [facility] [id number] Other closed fracture of proximal end of right tibia, initial encounter Problem [facility] [id number] Other closed fracture of proximal end of right fibula, initial encounter Problem [facility] [id number] Body mass index [BMI] 33.0-33.9, adult Problem [facility] General weakness General weakness Problem [facility] Pain in limb Pain in limb Problem [facility] 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 Problem [facility] Edema Edema leg Problem [facility] [id number] Other closed fracture of distal end of right femur, initial encounter Problem [facility] [id number] Other obesity due to excess calories Problem [facility] Peripheral neuropathy Peripheral neuropathy Problem [facility] Hypertensi on HTN (hypertens ion) Problem [facility] Gastroesop hageal reflux disease GERD (gastroeso phageal reflux disease) Problem [facility] Anemia Anemia Problem [facility] Hypothyroi dism Hypothyroi dism Problem [facility] Rheumatoid arthritis Rheumatoid arthritis Problem [facility] Hyperlipid emia Hyperlipid emia Problem [facility] [id number] +5th digit eff 11/27/19*Ga stroesopha geal reflux disease with esophagiti s Problem [facility] [id number] Neuropathy Problem [facility] [id number] Wheelchair dependence Problem [facility] Knee pain Knee pain Problem [facility] [id number] Chronic seasonal allergic rhinitis Problem [facility] Dependence on wheelchair Uses wheelchair Problem [facility] Acquired genu valgum Valgus deformity, not elsewhere classified , right knee Problem [facility] [id number] Influenza vaccinatio n administer ed at current visit Problem [facility] [id number] 5106 Pressure injury of sacral region, stage 4 Problem [facility] [id number] Leukocytos is, unspecifie d type Problem [facility] Allergies, Adverse Reactions, Alerts Allergy Name Allergy Type Status Severity Reaction(s) Onset Date Inactive Date Treating Clinician Comments Source Penicill ins DA Active SV BREAKOUT IN HIVES UNDER THE SKIN 2022-02 00:00: 00 [facility] lisinopr il DA Active SV CAUSE ME TO HAVE KIDNEY FAILURE 2022-02 00:00: 00 [facility] iodine DA Active SV THROAT SWELLING UP, DIFFICULTY BREATHING 2022-02 00:00: 00 [facility] azithrom ycin DA Active SV HIVES 2022-02 0 00:00: 00 [facility] shellfis h derived FA Active SV THROAT SWELLING UP, DIFFICULTY BREATHING 2022-02 00:00: 00 [facility] shrimp FA Active SV THROAT SWELLS, DIFFICULTY BREATHING 2022-02 0 00:00: 00 [facility] crab FA Active SV THROAT SWELLS, DIFFICULTY BREATHING 2022-02 00:00: 00 [facility] azithrom ycin DA Active SV HIVES 2022-02 0-13 00:00: 00 [facility] Penicill ins DA Active SV BREAKOUT IN HIVES UNDER THE SKIN 10-12 00:00: 00 [facility] lisinopr il DA Active SV CAUSE ME TO HAVE KIDNEY FAILURE 10-12 00:00: 00 [facility] iodine DA Active SV THROAT SWELLING UP, DIFFICULTY BREATHING 10-12 00:00: 00 [facility] shellfis h derived FA Active SV THROAT SWELLING UP, DIFFICULTY BREATHING 10-12 00:00: 00 [facility] shrimp FA Active SV THROAT SWELLS, DIFFICULTY BREATHING 10-12 00:00: 00 [facility] crab FA Active SV THROAT SWELLS, DIFFICULTY BREATHING 10-12 00:00: 00 [facility] LISINOPR [place] Allergy to substanc e Active [...] Active [facility] [id number] Drug allergy Active Unknown [facility] Social History Social Habit Start Date Stop Date Quantity Comments Source History of Tobacco Use [facility] Sex Assigned At [facility] Smoking Status Start Date Stop Date Source Never Smoker [facility] Medications Ordered Medication Name Filled Medication Name Start Date Stop Date Current Medication? Ordering Clinician Indication Dosage Frequency Signature (SIG) Comments Components Source Klor-Con 20 MEQ Klor-Con 20 MEQ 07-10 00:00: 00 No 1{packe t_with_ food} QD Klor-Con 20 MEQ amlodipine 2.5 mg tablet amlodipine 2.5 mg [...] WEEK [facility] Bactroban Nasal Bactroban Nasal No 1{table t_in_th [...] QD Crestor 10 MG Montelukast Sodium 10 MG Montelukast Sodium 10 MG No 1{table t_in_th e_eveni ng} QD Montelukas t Sodium 10 MG Santyl 250 UNIT/GM Santyl 250 UNIT/GM No 1{appli cation} QD Santyl 250 UNIT/GM Ciprofloxac in HCl 250 MG Ciprofloxac in HCl 250 MG No 1{table t} BID Ciprofloxa dena HCl 250 MG Levothyroxi ne Sodium 100 MCG Levothyroxi ne Sodium 100 MCG No QD Levothyrox ine Sodium 100 MCG Axel - Axel - No Axel - amLODIPine Besylate 5 MG amLODIPine Besylate 5 MG No amLODIPine Besylate 5 MG Vancomycin HCl 1.5 GM Vancomycin HCl 1.5 GM No QD Vancomycin HCl 1.5 GM Immunizations Ordered Immunization Name Filled Immunization Name Date Status Comments Source Flucelvax - single dose syringe Flucelvax - single dose syringe 2022-01-31 15:24:00 Completed [facility] Flucelvax - single dose syringe Flucelvax - single dose syringe 2022-01-31 15:24:00 Completed [facility] Moderna COVID-19 Vaccine Moderna COVID-19 Vaccine 2020-09-03 11:38:00 Completed [facility] Moderna COVID-19 Vaccine Moderna COVID-19 Vaccine 2020-09-03 11:38:00 Completed [facility] Moderna COVID-19 Vaccine Moderna COVID-19 Vaccine 2020-09-03 11:38:00 Completed [facility] Moderna COVID-19 Vaccine Moderna COVID-19 Vaccine 2020-09-03 11:38:00 Completed [facility] Moderna COVID-19 Vaccine Moderna COVID-19 Vaccine 2020-09-03 11:38:00 Completed [facility] Moderna COVID-19 Vaccine Moderna COVID-19 Vaccine 2020-09-03 11:38:00 Completed [facility] Moderna COVID-19 Vaccine Moderna COVID-19 Vaccine 2020-09-03 11:38:00 Completed [facility] Moderna COVID-19 Vaccine Moderna COVID-19 Vaccine 2020-09-03 11:38:00 Completed [facility] Moderna COVID-19 Vaccine Moderna COVID-19 Vaccine 2020-09-03 11:38:00 Completed [facility] Moderna COVID-19 Vaccine Moderna COVID-19 Vaccine 2020-09-03 11:38:00 Completed [facility] Moderna COVID-19 Vaccine Moderna COVID-19 Vaccine 2020-09-03 11:38:00 Completed [facility] Moderna COVID-19 Vaccine Moderna COVID-19 Vaccine 2020-09-03 11:38:00 Completed [facility] Moderna COVID-19 Vaccine Moderna COVID-19 Vaccine 2020-09-03 11:38:00 Completed [facility] Moderna COVID-19 Vaccine Moderna COVID-19 Vaccine 2020-09-03 11:38:00 Completed [facility] Moderna COVID-19 Vaccine Moderna COVID-19 Vaccine 2020-09-03 11:38:00 Completed [facility] Moderna COVID-19 Vaccine Moderna COVID-19 Vaccine 2020-09-03 11:38:00 Completed [facility] Afluria Afluria 2020-01-29 10:05:00 Completed [facility] Afluria Afluria 2020-01-29 10:05:00 [facility] Afluria Afluria 2020-01-29 10:05:00 [facility]pleted [facility] Afluria Afluria 2020-01-29 10:05:00 [facility]pleted [facility] Afluria Afluria 2020-01-29 10:05:00 [facility]pleted [facility] Afluria Afluria 2020-01-29 10:05:00 Completed [facility] Afluria Afluria 2020-01-29 10:05:00 Completed [facility] Afluria Afluria 2020-01-29 10:05:00 Completed [facility] Afluria Afluria 2020-01-29 10:05:00 Completed [facility] Afluria Afluria 2020-01-29 10:05:00 Completed [facility] Afluria Afluria 2020-01-29 10:05:00 Completed [facility] Afluria Afluria 2020-01-29 10:05:00 Completed [facility] Afluria Afluria 2020-01-29 10:05:00 Completed [facility] Afluria Afluria 2020-01-29 10:05:00 Completed [facility] Afluria Afluria 2020-01-29 10:05:00 Completed [facility] Afluria Afluria 2020-01-29 10:05:00 Completed [facility] Flu FluAD 2018-11-08 09:31:00 Completed [facility] Flu Flu 2018-11-08 09:31:00 Completed [facility] Flu Flu 2018-11-08 09:31:00 Completed [facility] Flu Flu 2018-11-08 09:31:00 Completed [facility] Flu Flu 2018-11-08 09:31:00 Completed [facility] Flu Flu 2018-11-08 09:31:00 Completed [facility] FluAD FluAD 2018-11-08 09:31:00 Completed [facility] FluAD FluAD 2018-11-08 09:31:00 Completed [facility] FluAD FluAD 2018-11-08 09:31:00 Completed [facility] FluAD FluAD 2018-11-08 09:31:00 Completed [facility] FluAD FluAD 2018-11-08 09:31:00 Completed [facility] FluAD FluAD 2018-11-08 09:31:00 Completed [facility] FluAD FluAD 2018-11-08 09:31:00 Completed [facility] FluAD FluAD 2018-11-08 09:31:00 Completed [facility] FluAD FluAD 2018-11-08 09:31:00 Completed [facility] FluAD FluAD 2018-11-08 09:31:00 Completed [facility] FluAD FluAD 2018-11-08 00:00:00 Completed [facility] FLUZONE HIGH DOSE OVER 65 FLUZONE HIGH DOSE OVER 65 2017-10-31 12:06:00 Completed [facility] FLUZONE HIGH DOSE OVER 65 FLUZONE HIGH DOSE OVER 65 2017-10-31 12:06:00 Completed [facility] FLUZONE HIGH DOSE OVER 65 FLUZONE HIGH DOSE OVER 65 2017-10-31 12:06:00 Completed [facility] FLUZONE HIGH DOSE OVER 65 FLUZONE HIGH DOSE OVER 65 2017-10-31 12:06:00 Completed [facility] FLUZONE HIGH DOSE OVER 65 FLUZONE HIGH DOSE OVER 65 2017-10-31 12:06:00 Completed [facility] FLUZONE HIGH DOSE OVER 65 FLUZONE HIGH DOSE OVER 65 2017-10-31 12:06:00 Completed [facility] FLUZONE HIGH DOSE OVER 65 FLUZONE HIGH DOSE OVER 65 2017-10-31 12:06:00 Completed [facility] FLUZONE HIGH DOSE OVER 65 FLUZONE HIGH DOSE OVER 65 2017-10-31 12:06:00 Completed [facility] FLUZONE HIGH DOSE OVER 65 FLUZONE HIGH DOSE OVER 65 2017-10-31 12:06:00 Completed [facility] FLUZONE HIGH DOSE OVER 65 FLUZONE HIGH DOSE OVER 65 2017-10-31 12:06:00 Completed [facility] FLUZONE HIGH DOSE OVER 65 FLUZONE HIGH DOSE OVER 65 2017-10-31 12:06:00 Completed [facility] FLUZONE HIGH DOSE OVER 65 FLUZONE HIGH DOSE OVER 65 2017-10-31 12:06:00 Completed [facility] FLUZONE HIGH DOSE OVER 65 FLUZONE HIGH DOSE OVER 65 2017-10-31 12:06:00 Completed [facility] FLUZONE HIGH DOSE OVER 65 FLUZONE HIGH DOSE OVER 65 2017-10-31 12:06:00 Completed [facility] FLUZONE HIGH DOSE OVER 65 FLUZONE HIGH DOSE OVER 65 2017-10-31 12:06:00 Completed [facility] FLUZONE HIGH DOSE OVER 65 FLUZONE HIGH DOSE OVER 65 2017-10-31 12:06:00 Completed [facility] Prevnar 20 (PCV20) Prevnar 20 (PCV20) Unknown Completed [facility] Moderna COVID-19 Vaccine Moderna COVID-19 Vaccine Unknown Completed [facility] Fluarix (IIV4) - SDS - 0.5mL Fluarix (IIV4) - SDS - 0.5mL Unknown Completed [facility] FluAD FluAD Unknown Completed [facility] Afluria Afluria Unknown Completed [facility] Flucelvax (ccIIV4) - SDS - 0.5mL Flucelvax (ccIIV4) - SDS - 0.5mL Unknown Completed [facility] FLUZONE HIGH DOSE OVER 65 FLUZONE HIGH DOSE OVER 65 Unknown Completed [facility] Prevnar 20 (PCV20) Prevnar 20 (PCV20) Unknown Completed [facility] Moderna COVID-19 Vaccine Moderna COVID-19 Vaccine Unknown Completed [facility] Fluarix (IIV4) - SDS - 0.5mL Fluarix (IIV4) - SDS - 0.5mL Unknown Completed [facility] FluAD FluAD Unknown Completed [facility] Afluria Afluria Unknown Completed [facility] Flucelvax (ccIIV4) - SDS - 0.5mL Flucelvax (ccIIV4) - SDS - 0.5mL Unknown Completed [facility] FLUZONE HIGH DOSE OVER 65 FLUZONE HIGH DOSE OVER 65 Unknown Completed [facility] Prevnar 20 (PCV20) Prevnar 20 (PCV20) Unknown Completed [facility] Moderna COVID-19 Vaccine Moderna COVID-19 Vaccine Unknown Completed [facility] Fluarix (IIV4) - SDS - 0.5mL Fluarix (IIV4) - SDS - 0.5mL Unknown Completed [facility] FluAD FluAD Unknown Completed [facility] Afluria Afluria Unknown Completed [facility] Flucelvax (ccIIV4) - SDS - 0.5mL Flucelvax (ccIIV4) - SDS - 0.5mL Unknown Completed [facility] FLUZONE HIGH DOSE OVER 65 FLUZONE HIGH DOSE OVER 65 Unknown Completed [facility] Prevnar 20 (PCV20) Prevnar 20 (PCV20) Unknown Completed [facility] Moderna COVID-19 Vaccine Moderna COVID-19 Vaccine Unknown Completed [facility] Fluarix (IIV4) - SDS - 0.5mL Fluarix (IIV4) - SDS - 0.5mL Unknown Completed [facility] FluAD FluAD Unknown Completed [facility] Afluria Afluria Unknown Completed [facility] Flucelvax (ccIIV4) - SDS - 0.5mL Flucelvax (ccIIV4) - SDS - 0.5mL Unknown Completed [facility] FLUZONE HIGH DOSE OVER 65 FLUZONE HIGH DOSE OVER 65 Unknown Completed [facility] Prevnar 20 (PCV20) Prevnar 20 (PCV20) Unknown Completed [facility] Moderna COVID-19 Vaccine Moderna COVID-19 Vaccine Unknown Completed [facility] Fluarix (IIV4) - SDS - 0.5mL Fluarix (IIV4) - SDS - 0.5mL Unknown Completed [facility] FluAD FluAD Unknown Completed [facility] Afluria Afluria Unknown Completed [facility] Flucelvax (ccIIV4) - SDS - 0.5mL Flucelvax (ccIIV4) - SDS - 0.5mL Unknown Completed [facility] FLUZONE HIGH DOSE OVER 65 FLUZONE HIGH DOSE OVER 65 Unknown Completed [facility] Prevnar 20 (PCV20) Prevnar 20 (PCV20) Unknown Completed [facility] Moderna COVID-19 Vaccine Moderna COVID-19 Vaccine Unknown Completed [facility] Fluarix (IIV4) - SDS - 0.5mL Fluarix (IIV4) - SDS - 0.5mL Unknown Completed [facility] FluAD FluAD Unknown Completed [facility] Afluria Afluria Unknown Completed [facility] Flucelvax (ccIIV4) - SDS - 0.5mL Flucelvax (ccIIV4) - SDS - 0.5mL Unknown Completed [facility] FLUZONE HIGH DOSE OVER 65 FLUZONE HIGH DOSE OVER 65 Unknown Completed [facility] Prevnar 20 (PCV20) Prevnar 20 (PCV20) Unknown Completed [facility] Moderna COVID-19 Vaccine Moderna COVID-19 Vaccine Unknown Completed [facility] Fluarix (IIV4) - SDS - 0.5mL Fluarix (IIV4) - SDS - 0.5mL Unknown Completed [facility] FluAD FluAD Unknown Completed [facility] Afluria Afluria Unknown Completed [facility] Flucelvax (ccIIV4) - SDS - 0.5mL Flucelvax (ccIIV4) - SDS - 0.5mL Unknown Completed [facility] FLUZONE HIGH DOSE OVER 65 FLUZONE HIGH DOSE OVER 65 Unknown Completed [facility] Prevnar 20 (PCV20) Prevnar 20 (PCV20) Unknown Completed [facility] Moderna COVID-19 Vaccine Moderna COVID-19 Vaccine Unknown Completed [facility] Fluarix (IIV4) - SDS - 0.5mL Fluarix (IIV4) - SDS - 0.5mL Unknown Completed [facility] FluAD FluAD Unknown Completed [facility] Afluria Afluria Unknown Completed [facility] Flucelvax (ccIIV4) - SDS - 0.5mL Flucelvax (ccIIV4) - SDS - 0.5mL Unknown Completed [facility] FLUZONE HIGH DOSE OVER 65 FLUZONE HIGH DOSE OVER 65 Unknown Completed [facility] Prevnar 20 (PCV20) Prevnar 20 (PCV20) Unknown Completed [facility] Moderna COVID-19 Vaccine Moderna COVID-19 Vaccine Unknown Completed [facility] Fluarix (IIV4) - SDS - 0.5mL Fluarix (IIV4) - SDS - 0.5mL Unknown Completed [facility] FluAD FluAD Unknown Completed [facility] Afluria Afluria Unknown Completed [facility] Flucelvax (ccIIV4) - SDS - 0.5mL Flucelvax (ccIIV4) - SDS - 0.5mL Unknown Completed [facility] FLUZONE HIGH DOSE OVER 65 FLUZONE HIGH DOSE OVER 65 Unknown Completed [facility] Prevnar 20 (PCV20) Prevnar 20 (PCV20) Unknown Completed [facility] Moderna COVID-19 Vaccine Moderna COVID-19 Vaccine Unknown Completed [facility] Fluarix (IIV4) - SDS - 0.5mL Fluarix (IIV4) - SDS - 0.5mL Unknown Completed [facility] FluAD FluAD Unknown Completed [facility] Afluria Afluria Unknown Completed [facility] Flucelvax (ccIIV4) - SDS - 0.5mL Flucelvax (ccIIV4) - SDS - 0.5mL Unknown Completed [facility] FLUZONE HIGH DOSE OVER 65 FLUZONE HIGH DOSE OVER 65 Unknown Completed [facility] Prevnar 20 (PCV20) Prevnar 20 (PCV20) Unknown Completed [facility] Moderna COVID-19 Vaccine Moderna COVID-19 Vaccine Unknown Completed [facility] Fluarix (IIV4) - SDS - 0.5mL Fluarix (IIV4) - SDS - 0.5mL Unknown Completed [facility] FluAD FluAD Unknown Completed [facility] Afluria Afluria Unknown Completed [facility] Flucelvax (ccIIV4) - SDS - 0.5mL Flucelvax (ccIIV4) - SDS - 0.5mL Unknown Completed [facility] FLUZONE HIGH DOSE OVER 65 FLUZONE HIGH DOSE OVER 65 Unknown Completed [facility] Prevnar 20 (PCV20) Prevnar 20 (PCV20) Unknown Completed [facility] Moderna COVID-19 Vaccine Moderna COVID-19 Vaccine Unknown Completed [facility] Fluarix (IIV4) - SDS - 0.5mL Fluarix (IIV4) - SDS - 0.5mL Unknown Completed [facility] FluAD FluAD Unknown Completed [facility] Afluria Afluria Unknown Completed [facility] Flucelvax (ccIIV4) - SDS - 0.5mL Flucelvax (ccIIV4) - SDS - 0.5mL Unknown Completed [facility] FLUZONE HIGH DOSE OVER 65 FLUZONE HIGH DOSE OVER 65 Unknown Completed [facility] Prevnar 20 (PCV20) Prevnar 20 (PCV20) Unknown Completed [facility] Moderna COVID-19 Vaccine Moderna COVID-19 Vaccine Unknown Completed [facility] Fluarix (IIV4) - SDS - 0.5mL Fluarix (IIV4) - SDS - 0.5mL Unknown Completed [facility] FluAD FluAD Unknown Completed [facility] Afluria Afluria Unknown Completed [facility] Flucelvax (ccIIV4) - SDS - 0.5mL Flucelvax (ccIIV4) - SDS - 0.5mL Unknown Completed [facility] FLUZONE HIGH DOSE OVER 65 FLUZONE HIGH DOSE OVER 65 Unknown Completed [facility] Prevnar 20 (PCV20) Prevnar 20 (PCV20) Unknown Completed [facility] Moderna COVID-19 Vaccine Moderna COVID-19 Vaccine Unknown Completed [facility] Fluarix (IIV4) - SDS - 0.5mL Fluarix (IIV4) - SDS - 0.5mL Unknown Completed [facility] FluAD FluAD Unknown Completed [facility] Afluria Afluria Unknown Completed [facility] Flucelvax (ccIIV4) - SDS - 0.5mL Flucelvax (ccIIV4) - SDS - 0.5mL Unknown Completed [facility] FLUZONE HIGH DOSE OVER 65 FLUZONE HIGH DOSE OVER 65 Unknown Completed [facility] Prevnar 20 (PCV20) Prevnar 20 (PCV20) Unknown Completed [facility] Moderna COVID-19 Vaccine Moderna COVID-19 Vaccine Unknown Completed [facility] Fluarix (IIV4) - SDS - 0.5mL Fluarix (IIV4) - SDS - 0.5mL Unknown Completed [facility] FluAD FluAD Unknown Completed [facility] Afluria Afluria Unknown Completed [facility] Flucelvax (ccIIV4) - SDS - 0.5mL Flucelvax (ccIIV4) - SDS - 0.5mL Unknown Completed [facility] FLUZONE HIGH DOSE OVER 65 FLUZONE HIGH DOSE OVER 65 Unknown Completed [facility] Prevnar 20 (PCV20) Prevnar 20 (PCV20) Unknown Completed [facility] Moderna COVID-19 Vaccine Moderna COVID-19 Vaccine Unknown Completed [facility] Fluarix (IIV4) - SDS - 0.5mL Fluarix (IIV4) - SDS - 0.5mL Unknown Completed [facility] FluAD FluAD Unknown Completed [facility] Afluria Afluria Unknown Completed [facility] Flucelvax (ccIIV4) - SDS - 0.5mL Flucelvax (ccIIV4) - SDS - 0.5mL Unknown Completed [facility] FLUZONE HIGH DOSE OVER 65 FLUZONE HIGH DOSE OVER 65 Unknown Completed [facility] Prevnar 20 (PCV20) Prevnar 20 (PCV20) Unknown Completed [facility] Moderna COVID-19 Vaccine Moderna COVID-19 Vaccine Unknown Completed [facility] Fluarix (IIV4) - SDS - 0.5mL Fluarix (IIV4) - SDS - 0.5mL Unknown Completed [facility] FluAD FluAD Unknown Completed [facility] Afluria Afluria Unknown Completed [facility] Flucelvax (ccIIV4) - SDS - 0.5mL Flucelvax (ccIIV4) - SDS - 0.5mL Unknown Completed [facility] FLUZONE HIGH DOSE OVER 65 FLUZONE HIGH DOSE OVER 65 Unknown Completed [facility] Prevnar 20 (PCV20) Prevnar 20 (PCV20) Unknown Completed [facility] Moderna COVID-19 Vaccine Moderna COVID-19 Vaccine Unknown Completed [facility] Fluarix (IIV4) - SDS - 0.5mL Fluarix (IIV4) - SDS - 0.5mL Unknown Completed [facility] FluAD FluAD Unknown Completed [facility] Afluria Afluria Unknown Completed [facility] Flucelvax (ccIIV4) - SDS - 0.5mL Flucelvax (ccIIV4) - SDS - 0.5mL Unknown Completed [facility] FLUZONE HIGH DOSE OVER 65 FLUZONE HIGH DOSE OVER 65 Unknown Completed [facility] Prevnar 20 (PCV20) Prevnar 20 (PCV20) Unknown Completed [facility] Moderna COVID-19 Vaccine Moderna COVID-19 Vaccine Unknown Completed [facility] Fluarix (IIV4) - SDS - 0.5mL Fluarix (IIV4) - SDS - 0.5mL Unknown Completed [facility] FluAD FluAD Unknown Completed [facility] Afluria Afluria Unknown Completed [facility] Flucelvax (ccIIV4) - SDS - 0.5mL Flucelvax (ccIIV4) - SDS - 0.5mL Unknown Completed [facility] FLUZONE HIGH DOSE OVER 65 FLUZONE HIGH DOSE OVER 65 Unknown Completed [facility] Prevnar 20 (PCV20) Prevnar 20 (PCV20) Unknown Completed [facility] Moderna COVID-19 Vaccine Moderna COVID-19 Vaccine Unknown Completed [facility] Fluarix (IIV4) - SDS - 0.5mL Fluarix (IIV4) - SDS - 0.5mL Unknown Completed [facility] FluAD FluAD Unknown Completed [facility] Afluria Afluria Unknown Completed [facility] Flucelvax (ccIIV4) - SDS - 0.5mL Flucelvax (ccIIV4) - SDS - 0.5mL Unknown Completed [facility] FLUZONE HIGH DOSE OVER 65 FLUZONE HIGH DOSE OVER 65 Unknown Completed [facility] Prevnar 20 (PCV20) Prevnar 20 (PCV20) Unknown Completed [facility] Moderna COVID-19 Vaccine Moderna COVID-19 Vaccine Unknown Completed [facility] Fluarix (IIV4) - SDS - 0.5mL Fluarix (IIV4) - SDS - 0.5mL Unknown Completed [facility] FluAD FluAD Unknown Completed [facility] Afluria Afluria Unknown Completed [facility] Flucelvax (ccIIV4) - SDS - 0.5mL Flucelvax (ccIIV4) - SDS - 0.5mL Unknown Completed [facility] FLUZONE HIGH DOSE OVER 65 FLUZONE HIGH DOSE OVER 65 Unknown Completed [facility] Prevnar 20 (PCV20) Prevnar 20 (PCV20) Unknown Completed [facility] Moderna COVID-19 Vaccine Moderna COVID-19 Vaccine Unknown Completed [facility] Fluarix (IIV4) - SDS - 0.5mL Fluarix (IIV4) - SDS - 0.5mL Unknown Completed [facility] FluAD FluAD Unknown Completed [facility] Afluria Afluria Unknown Completed [facility] Flucelvax (ccIIV4) - SDS - 0.5mL Flucelvax (ccIIV4) - SDS - 0.5mL Unknown Completed [facility] FLUZONE HIGH DOSE OVER 65 FLUZONE HIGH DOSE OVER 65 Unknown Completed [facility] Prevnar 20 (PCV20) Prevnar 20 (PCV20) Unknown Completed [facility] Moderna COVID-19 Vaccine Moderna COVID-19 Vaccine Unknown Completed [facility] Fluarix (IIV4) - SDS - 0.5mL Fluarix (IIV4) - SDS - 0.5mL Unknown Completed [facility] FluAD FluAD Unknown Completed [facility] Afluria Afluria Unknown Completed [facility] Flucelvax (ccIIV4) - SDS - 0.5mL Flucelvax (ccIIV4) - SDS - 0.5mL Unknown Completed [facility] FLUZONE HIGH DOSE OVER 65 FLUZONE HIGH DOSE OVER 65 Unknown Completed [facility] Prevnar 20 (PCV20) Prevnar 20 (PCV20) [facility]-19 Vaccine Unknown Completed [facility] Fluarix (IIV4) - SDS - 0.5mL Fluarix (IIV4) - SDS - 0.5mL Unknown Completed [facility] FluAD FluAD Unknown Completed [facility] Afluria Afluria Unknown Completed [facility] Flucelvax (ccIIV4) - SDS - 0.5mL Flucelvax (ccIIV4) - SDS - 0.5mL Unknown Completed [facility] FLUZONE HIGH DOSE OVER 65 FLUZONE HIGH DOSE OVER 65 Unknown Completed [facility] Prevnar 20 (PCV20) Prevnar 20 (PCV20) Unknown Completed [facility] Moderna COVID-19 Vaccine Moderna COVID-19 Vaccine Unknown Completed [facility] Fluarix (IIV4) - SDS - 0.5mL Fluarix (IIV4) - SDS - 0.5mL Unknown Completed [facility] FluAD FluAD Unknown Completed [facility] Afluria Afluria Unknown Completed [facility] Flucelvax (ccIIV4) - SDS - 0.5mL Flucelvax (ccIIV4) - SDS - 0.5mL Unknown Completed [facility] FLUZONE HIGH DOSE OVER 65 FLUZONE HIGH DOSE OVER 65 Unknown Completed [facility] Prevnar 20 (PCV20) Prevnar 20 (PCV20) [facility] COVID-19 Vaccine Unknown Completed [facility] Fluarix (IIV4) - SDS - 0.5mL Fluarix (IIV4) - SDS - 0.5mL Unknown Completed [facility] FluAD FluAD Unknown Completed [facility] Afluria Afluria Unknown Completed [facility] Flucelvax (ccIIV4) - SDS - 0.5mL Flucelvax (ccIIV4) - SDS - 0.5mL Unknown Completed [facility] FLUZONE HIGH DOSE OVER 65 FLUZONE HIGH DOSE OVER 65 Unknown Completed [facility] Prevnar 20 (PCV20) Prevnar 20 (PCV20) Unknown Completed [facility] Moderna COVID-19 Vaccine Moderna COVID-19 Vaccine Unknown Completed [facility] Fluarix (IIV4) - SDS - 0.5mL Fluarix (IIV4) - SDS - 0.5mL Unknown Completed [facility] FluAD FluAD Unknown Completed [facility] Afluria Afluria Unknown Completed [facility] Flucelvax (ccIIV4) - SDS - 0.5mL Flucelvax (ccIIV4) - SDS - 0.5mL Unknown Completed [facility] FLUZONE HIGH DOSE OVER 65 FLUZONE HIGH DOSE OVER 65 Unknown Completed [facility] Prevnar 20 (PCV20) Prevnar 20 (PCV20) Unknown Completed [facility] Moderna COVID-19 Vaccine Moderna COVID-19 Vaccine Unknown Completed [facility] Fluarix (IIV4) - SDS - 0.5mL Fluarix (IIV4) - SDS - 0.5mL Unknown Completed [facility] FluAD FluAD Unknown Completed [facility] Afluria Afluria Unknown Completed [facility] Flucelvax (ccIIV4) - SDS - 0.5mL Flucelvax (ccIIV4) - SDS - 0.5mL Unknown Completed [facility] FLUZONE HIGH DOSE OVER 65 FLUZONE HIGH DOSE OVER 65 Unknown Completed [facility] Prevnar 20 (PCV20) Prevnar 20 (PCV20) Unknown Completed [facility] Moderna COVID-19 Vaccine Moderna COVID-19 Vaccine Unknown Completed [facility] Fluarix (IIV4) - SDS - 0.5mL Fluarix (IIV4) - SDS - 0.5mL Unknown Completed [facility] FluAD FluAD Unknown Completed [facility] Afluria Afluria Unknown Completed [facility] Flucelvax (ccIIV4) - SDS - 0.5mL Flucelvax (ccIIV4) - SDS - 0.5mL Unknown Completed [facility] FLUZONE HIGH DOSE OVER 65 FLUZONE HIGH DOSE OVER 65 Unknown Completed [facility] Prevnar 20 (PCV20) Prevnar 20 (PCV20) Unknown Completed [facility] Moderna COVID-19 Vaccine Moderna COVID-19 Vaccine Unknown Completed [facility] Fluarix (IIV4) - SDS - 0.5mL Fluarix (IIV4) - SDS - 0.5mL Unknown Completed [facility] FluAD FluAD Unknown Completed [facility] Afluria Afluria Unknown Completed [facility] Flucelvax (ccIIV4) - SDS - 0.5mL Flucelvax (ccIIV4) - SDS - 0.5mL Unknown Completed [facility] FLUZONE HIGH DOSE OVER 65 FLUZONE HIGH DOSE OVER 65 Unknown Completed [facility] Prevnar 20 (PCV20) Prevnar 20 (PCV20) Unknown Completed [facility] Moderna COVID-19 Vaccine Moderna COVID-19 Vaccine Unknown Completed [facility] Fluarix (IIV4) - SDS - 0.5mL Fluarix (IIV4) - SDS - 0.5mL Unknown Completed [facility] FluAD FluAD Unknown Completed [facility] Afluria Afluria Unknown Completed [facility] Flucelvax (ccIIV4) - SDS - 0.5mL Flucelvax (ccIIV4) - SDS - 0.5mL Unknown Completed [facility] FLUZONE HIGH DOSE OVER 65 FLUZONE HIGH DOSE OVER 65 Unknown Completed [facility] Prevnar 20 (PCV20) Prevnar 20 (PCV20) Unknown Completed [facility] Moderna COVID-19 Vaccine Moderna COVID-19 Vaccine Unknown Completed [facility] Fluarix (IIV4) - SDS - 0.5mL Fluarix (IIV4) - SDS - 0.5mL Unknown Completed [facility] FluAD FluAD Unknown Completed [facility] Afluria Afluria Unknown Completed [facility] Flucelvax (ccIIV4) - SDS - 0.5mL Flucelvax (ccIIV4) - SDS - 0.5mL Unknown Completed [facility] FLUZONE HIGH DOSE OVER 65 FLUZONE HIGH DOSE OVER 65 Unknown Completed [facility] Prevnar 20 (PCV20) Prevnar 20 (PCV20) Unknown Completed [facility] Moderna COVID-19 Vaccine Moderna COVID-19 Vaccine Unknown Completed [facility] Fluarix (IIV4) - SDS - 0.5mL Fluarix (IIV4) - SDS - 0.5mL Unknown Completed [facility] FluAD FluAD Unknown Completed [facility] Afluria Afluria Unknown Completed [facility] Flucelvax (ccIIV4) - SDS - 0.5mL Flucelvax (ccIIV4) - SDS - 0.5mL Unknown Completed [facility] FLUZONE HIGH DOSE OVER 65 FLUZONE HIGH DOSE OVER 65 Unknown Completed [facility] Prevnar 20 (PCV20) Prevnar 20 (PCV20) Unknown Completed [facility] Moderna COVID-19 Vaccine Moderna COVID-19 Vaccine Unknown Completed [facility] Fluarix (IIV4) - SDS - 0.5mL Fluarix (IIV4) - SDS - 0.5mL Unknown Completed [facility] FluAD FluAD Unknown Completed [facility] Afluria Afluria Unknown Completed [facility] Flucelvax (ccIIV4) - SDS - 0.5mL Flucelvax (ccIIV4) - SDS - 0.5mL Unknown Completed [facility] FLUZONE HIGH DOSE OVER 65 FLUZONE HIGH DOSE OVER 65 Unknown Completed [facility] Prevnar 20 (PCV20) Prevnar 20 (PCV20) Unknown Completed [facility] Moderna COVID-19 Vaccine Moderna COVID-19 Vaccine Unknown Completed [facility] Fluarix (IIV4) - SDS - 0.5mL Fluarix (IIV4) - SDS - 0.5mL Unknown Completed [facility] FluAD FluAD Unknown Completed [facility] Afluria Afluria Unknown Completed [facility] Flucelvax (ccIIV4) - SDS - 0.5mL Flucelvax (ccIIV4) - SDS - 0.5mL Unknown Completed [facility] FLUZONE HIGH DOSE OVER 65 FLUZONE HIGH DOSE OVER 65 Unknown Completed [facility] Prevnar 20 (PCV20) Prevnar 20 (PCV20) Unknown Completed [facility] Moderna COVID-19 Vaccine Moderna COVID-19 Vaccine Unknown Completed [facility] Fluarix (IIV4) - SDS - 0.5mL Fluarix (IIV4) - SDS - 0.5mL Unknown Completed [facility] FluAD FluAD Unknown Completed [facility] Afluria Afluria Unknown Completed [facility] Flucelvax (ccIIV4) - SDS - 0.5mL Flucelvax (ccIIV4) - SDS - 0.5mL Unknown Completed [facility] FLUZONE HIGH DOSE OVER 65 FLUZONE HIGH DOSE OVER 65 Unknown Completed [facility] Prevnar 20 (PCV20) Prevnar 20 (PCV20) Unknown [facility] Moderna COVID-19 Vaccine Unknown Completed [facility] Fluarix (IIV4) - SDS - 0.5mL Fluarix (IIV4) - SDS - 0.5mL Unknown Completed [facility] FluAD FluAD Unknown Completed [facility] Afluria Afluria Unknown Completed [facility] Flucelvax (ccIIV4) - SDS - 0.5mL Flucelvax (ccIIV4) - SDS - 0.5mL Unknown Completed [facility] FLUZONE HIGH DOSE OVER 65 FLUZONE HIGH DOSE OVER 65 Unknown Completed [facility] Prevnar 20 (PCV20) Prevnar 20 (PCV20) Unknown [facility] Vaccine Moderna COVID-19 Vaccine Unknown Completed [facility] Fluarix Fluarix Unknown Completed [facility] FluAD FluAD Unknown Completed [facility] Afluria Afluria Unknown Completed [facility] Flucelvax - single dose syringe Flucelvax - single dose syringe Unknown Completed [facility] FLUZONE HIGH DOSE OVER 65 FLUZONE HIGH DOSE OVER 65 Unknown Completed [facility] Prevnar 20 (PCV20) Prevnar 20 (PCV20) Unknown Completed [facility] Moderna COVID-19 Vaccine Moderna COVID-19 Vaccine Unknown Completed [facility] Fluarix Fluarix Unknown Completed [facility] FluAD FluAD Unknown Completed [facility] Afluria Afluria Unknown Completed [facility] Flucelvax - single dose syringe Flucelvax - single dose syringe Unknown Completed [facility] FLUZONE HIGH DOSE OVER 65 FLUZONE HIGH DOSE OVER 65 Unknown Completed [facility] Prevnar 20 (PCV20) Prevnar 20 (PCV20) Unknown [facility] Vaccine Moderna COVID-19 Vaccine Unknown Completed [facility] Fluarix Fluarix Unknown Completed [facility] FluAD FluAD Unknown Completed [facility] Afluria Afluria Unknown Completed [facility] Flucelvax - single dose syringe Flucelvax - single dose syringe Unknown Completed [facility] FLUZONE HIGH DOSE OVER 65 FLUZONE HIGH DOSE OVER 65 Unknown Completed [facility] Prevnar 20 (PCV20) Prevnar 20 (PCV20) Unknown Completed [facility] Moderna COVID-19 Vaccine Moderna COVID-19 Vaccine Unknown Completed [facility] Fluarix (IIV4) - SDS - 0.5mL Fluarix (IIV4) - SDS - 0.5mL Unknown Completed [facility] FluAD FluAD Unknown Completed [facility] Afluria Afluria Unknown Completed [facility] Flucelvax (ccIIV4) - SDS - 0.5mL Flucelvax (ccIIV4) - SDS - 0.5mL Unknown Completed [facility] FLUZONE HIGH DOSE OVER 65 FLUZONE HIGH DOSE OVER 65 Unknown Completed [facility] Vital Signs Vital Name Observation Time Observation Value Tamar wallace height 2023-06-11 07:40:00 68 [in_i] Commo n [facility] weight 2023-06-11 07:40:00 165 [lb_av] Comm on [facility] temperature 2023-06-11 07:40:00 98.6 [degF] Com [facility] bmi 2023-06-11 07:40:00 25.09 kg/m2 Comm on [facility] height 2023-05-17 08:50:00 68 [in_i] Commo n [facility] weight 2023-05-17 08:50:00 220.0 [lb_av] Co [facility] temperature 2023-05-17 08:50:00 97.4 [degF] Com [facility] bmi 2023-05-17 08:50:00 33.45 kg/m2 Comm on [facility] oximetry 2023-05-17 08:50:00 99 % Commo n [facility] respiratory rate 2023-05-17 08:50:00 17 /min [facility] blood pressure systolic 2023-05-17 08:50:00 126 mm[Hg] [facility] blood pressure diastolic 2023-05-17 08:50:00 69 mm[Hg] [facility] height 2023-05-17 08:50:00 68 [in_i] Commo n [facility] weight 2023-05-17 08:50:00 220.0 [lb_av] Co [facility] temperature 2023-05-17 08:50:00 97.4 [degF] Com [facility] bmi 2023-05-17 08:50:00 33.45 kg/m2 Comm on [facility] oximetry 2023-05-17 08:50:00 99 % Commo n [facility] respiratory rate 2023-05-17 08:50:00 17 /min Common [facility] blood pressure systolic 2023-05-17 08:50:00 126 mm[Hg] [facility] blood pressure diastolic 2023-05-17 08:50:00 69 mm[Hg] [facility] height 2023-04-02 08:00:00 68 [in_i] Commo n [facility] weight 2023-04-02 08:00:00 220 [lb_av] Comm on [facility] bmi 2023-04-02 08:00:00 33.45 kg/m2 Comm on [facility] Body Weight 2023-03-20 00:00:00 167 [lb_av] [facility] Height 2023-03-20 00:00:00 68 [in_i] [facility] BMI (Body Mass Index) 2023-03-20 00:00:00 25.4 kg/m2 [facility] height 2023-03-09 09:00:00 68 [in_i] Commo n [facility] weight 2023-03-09 09:00:00 221 [lb_av] Comm on [facility] bmi 2023-03-09 09:00:00 33.6 kg/m2 Commo n [facility] height 2022-11-21 09:20:00 68 [in_i] Commo n [facility] weight 2022-11-21 09:20:00 221.0 [lb_av] Co [facility] temperature 2022-11-21 09:20:00 97.4 [degF] Com mon [facility] bmi 2022-11-21 09:20:00 33.6 kg/m2 Commo n [facility] oximetry 2022-11-21 09:20:00 99 % Commo n [facility] respiratory rate 2022-11-21 09:20:00 18 /min Common [facility] blood pressure systolic 2022-11-21 09:20:00 130 mm[Hg] [facility] blood pressure diastolic 2022-11-21 09:20:00 72 mm[Hg] Common [facility] height 2022-11-09 09:00:00 68 [in_i] Commo n [facility] weight 2022-11-09 09:00:00 221 [lb_av] Comm on [facility] temperature 2022-11-09 09:00:00 98.4 [degF] Com [facility] bmi 2022-11-09 09:00:00 33.6 kg/m2 Commo n [facility] blood pressure systolic 2022-11-09 09:00:00 130 mm[Hg] Common [facility] blood pressure diastolic 2022-11-09 09:00:00 74 mm[Hg] [facility] height 2022-11-07 13:20:00 68 [in_i] Commo n [facility] weight 2022-11-07 13:20:00 220 [lb_av] Comm on [facility] temperature 2022-11-07 13:20:00 98.3 [degF] Com [facility] bmi 2022-11-07 13:20:00 33.45 kg/m2 Comm on [facility] oximetry 2022-11-07 13:20:00 99 % Commo n [facility] respiratory rate 2022-11-07 13:20:00 16 /min Common [facility] blood pressure systolic 2022-11-07 13:20:00 126 mm[Hg] [facility] blood pressure diastolic 2022-11-07 13:20:00 78 mm[Hg] [facility] height 2022-10-09 09:20:00 68 [in_i] Commo n [facility] weight 2022-10-09 09:20:00 220 [lb_av] Comm on [facility] temperature 2022-10-09 09:20:00 97.0 [degF] Com [facility] bmi 2022-10-09 09:20:00 33.45 kg/m2 Comm on [facility] oximetry 2022-10-09 09:20:00 97 % Commo n [facility] respiratory rate 2022-10-09 09:20:00 17 /min Common [facility] blood pressure systolic 2022-10-09 09:20:00 117 mm[Hg] Common [facility] blood pressure diastolic 2022-10-09 09:20:00 72 mm[Hg] Common [facility] height 2022-08-21 13:30:00 68 [in_i] Commo n [facility] weight 2022-08-21 13:30:00 220 [lb_av] Comm on [facility] temperature 2022-08-21 13:30:00 97.3 [degF] Com mon [facility] bmi 2022-08-21 13:30:00 33.45 kg/m2 Comm on [facility] oximetry 2022-08-21 13:30:00 99 % Commo n [facility] respiratory rate 2022-08-21 13:30:00 17 /min Common [facility] blood pressure systolic 2022-08-21 13:30:00 137 mm[Hg] [facility] blood pressure diastolic 2022-08-21 13:30:00 73 mm[Hg] Common [facility] height 2022-08-21 13:00:00 68 [in_i] Commo n [facility] weight 2022-08-21 13:00:00 220 [lb_av] Comm on [facility] temperature 2022-08-21 13:00:00 97.3 [degF] Com mon [facility] bmi 2022-08-21 13:00:00 33.45 kg/m2 Comm on [facility] oximetry 2022-08-21 13:00:00 99 % Commo n [facility] respiratory rate 2022-08-21 13:00:00 17 /min Common [facility] blood pressure systolic 2022-08-21 13:00:00 137 mm[Hg] Common [facility] blood pressure diastolic 2022-08-21 13:00:00 73 mm[Hg] [facility] Height 2021-12-12 00:00:00 68 [in_i] [facility] BMI (Body Mass Index) 2021-12-12 00:00:00 33.5 kg/m2 [facility] Body Weight 2021-12-12 00:00:00 220 [lb_av] [facility] height 2021-12-12 08:20:00 68 [in_i] Commo n [facility] weight 2021-12-12 08:20:00 220 [lb_av] Comm on [facility] bmi 2021-12-12 08:20:00 33.45 kg/m2 Comm on [facility] height 2021-09-28 08:00:00 68 [in_i] Commo n [facility] weight 2021-09-28 08:00:00 220 [lb_av] Comm on [facility] temperature 2021-09-28 08:00:00 99.1 [degF] Com mon [facility] bmi 2021-09-28 08:00:00 33.45 kg/m2 Comm on [facility] blood pressure systolic 2021-09-28 08:00:00 125 mm[Hg] Common [facility] blood pressure diastolic 2021-09-28 08:00:00 70 mm[Hg] Common [facility] height 2021-08-15 09:30:00 68 [in_i] Commo n [facility] weight 2021-08-15 09:30:00 195 [lb_av] Comm on [facility] bmi 2021-08-15 09:30:00 29.65 kg/m2 Comm on [facility] blood pressure systolic 2021-08-15 09:30:00 112 mm[Hg] [facility] blood pressure diastolic 2021-08-15 09:30:00 79 mm[Hg] [facility] height 2021-07-18 08:30:00 68 [in_i] Commo n [facility] weight 2021-07-18 08:30:00 195 [lb_av] Comm on [facility] temperature 2021-07-18 08:30:00 97.7 [degF] Com mon [facility] bmi 2021-07-18 08:30:00 29.65 kg/m2 Comm on [facility] blood pressure systolic 2021-07-18 08:30:00 130 mm[Hg] [facility] blood pressure diastolic 2021-07-18 08:30:00 72 mm[Hg] [facility] height 2021-06-30 10:15:00 68 [in_i] Commo n [facility] weight 2021-06-30 10:15:00 195 [lb_av] Comm on [facility] bmi 2021-06-30 10:15:00 29.65 kg/m2 Comm on [facility] blood pressure systolic 2021-06-30 10:15:00 130 mm[Hg] [facility] blood pressure diastolic 2021-06-30 10:15:00 72 mm[Hg] [facility] height 2021-03-11 08:00:00 68 [in_i] Commo n [facility] weight 2021-03-11 08:00:00 200 [lb_av] Comm on [facility] temperature 2021-03-11 08:00:00 97.8 [degF] Com mon [facility] bmi 2021-03-11 08:00:00 30.41 kg/m2 Comm on [facility] Procedures Procedure Date / Time Performed Performing Clinician Source XR, knee, 1 or 2 view 2023-03-20 00:00:00 [facility] [id number] 2022-12-20 00:00:[address] [facility] [id number] 2022-12-20 00:00:[address] [facility] [id number] 2022-12-20 00:00:[address] [facility] [id number] 2022-12-18 00:00:[address] [facility] [id number] 2022-12-18 00:00:[address] [facility] [id number] 2022-12-18 00:00:[address] [facility] XR, knee, 4 or more view 2021-12-12 00:00:00 [facility] Hyste[facility] Encounters Start Date/Time End Date/Time Encounter Type Admission Type Attending Clinicians Care Facility Care Department Encounter ID Source 2023-07-05 15:33:00 [facility] [place] [facility] [facility] [id number] [facility] 2023-06-07 14:25:00 [facility] [id number] [facility] 2023-05-16 08:42:00 [facility] [id number] [facility] 2023-05-15 08:08:00 [facility] [id number] [facility] 2023-03-07 08:28:00 [facility] [id number] [facility] 2023-03-05 11:04:00 Outpatient Bhakta, Nikolay STLC STLC [id number] [facility] 2022-12-19 10:04:00 Outpatient Bhakta, Nikolay STLC STLC [id number] [facility] 2022-11-09 11:20:00 Outpatient Bhakta, Nikolay STLC STLMLC [id number] [facility] 2022-11-07 14:39:00 Outpatient Bhakta, Nikolay STLC STLMLC [id number] [facility] 2022-11-02 10:30:00 Outpatient Bhakta, Nikolay STLC STLC [id number] [facility] 2022-09-06 09:05:00 Outpatient Bhakta, Nikolay STLC STLC [id number] [facility] 2022-08-14 09:39:00 Outpatient Bhakta, Nikolay STLC STLC [id number] [facility] 2022-08-02 13:42:00 Outpatient KAMINIOfelia STLC STLC [id number] [facility] 2022-06-26 09:37:01 Outpatient Ofelia Khalil STLC STLC [id number] [facility] 2022-02-22 12:30:00 Inpatient Carlie Garrido HCATO HCATO [id number] [facility] [place] [facility] 2022-01-27 09:45:01 Outpatient [facility] [id number] [facility] 2022-01-03 08:06:00 Outpatient Jannette Good STLC STLC [id number] [facility] 2021-12-08 08:08:00 Outpatient GoodJannette curry STLMLC STLMLC [id number] [facility] 2021-10-04 11:22:00 Outpatient GoodJannette curry STLMLC STLMLC [id number] [facility] 2021-09-26 09:17:00 Outpatient GoodJannette curry STLMLC STLMLC [id number] [facility] 2021-08-23 09:54:00 Outpatient GoodJannette curry STLMLC STLMLC [id number] [facility] 2021-06-27 08:14:00 Outpatient Jannette Good STLMLC STLMLC [id number] [facility] 2021-06-24 11:35:01 Outpatient Jannette Good STLMLC STLMLC [id number] [facility] 2021-06-07 10:43:00 Outpatient Jannette Good STLMLC STLMLC [id number] [facility] 2021-05-18 16:35:00 Outpatient Jannette Good STLMLC STLMLC [id number] [facility] 2021-03-23 14:34:30 Outpatient Jannette Good STLMLC STLMLC [id number] [facility] 2021-03-23 14:00:26 Outpatient Jannette Good STLMLC STLMLC [id number] [facility] 2021-03-23 13:58:30 Outpatient GoodJannette curry STLMLC STLMLC [id number] [facility] 2021-03-23 13:57:22 Outpatient Jannette Good STLMLC STLMLC [id number] [facility] 2021-03-23 13:23:44 Outpatient Latisha Na STLMLC STLMLC [id number] [facility] 2021-03-23 12:45:34 Outpatient Good, Na STLMLC STLMLC [id number] [facility] 2021-03-23 12:36:03 Outpatient Good, Na STLMLC STLMLC [id number] [facility] 2021-03-23 12:21:11 Outpatient Good, Na STLMLC STLMLC [id number] [facility] 2021-03-23 12:09:34 Outpatient Good, Na STLMLC STLMLC [id number] [facility] 2021-03-23 11:58:50 Outpatient Good, Na STLMLC STLMLC [id number] [facility] 2021-03-23 11:33:44 Outpatient Good, Na STLMLC STLMLC [id number] [facility] 2021-03-23 11:31:40 Outpatient Good, Na STLMLC STLMLC [id number] [facility] 2021-03-23 11:18:14 Outpatient Good, Na STLMLC STLMLC [id number] [facility] 2021-03-23 11:16:56 Outpatient Good, Na STLMLC STLMLC [id number] [facility] 2023-07-16 00:00:00 2023-07-16 00:00:00 (TEL) STLMLC STLMLC [id number] [facility] 2023-07-13 00:00:00 2023-07-13 00:00:00 (TEL) STLMLC STLMLC [id number] [facility] 2023-07-11 00:00:00 2023-07-11 00:00:00 (TEL) STLMLC STLMLC [id number] [facility] 2023-07-11 00:00:00 2023-07-11 00:00:00 (TEL) STLMLC STLMLC [id number] [facility] 2023-07-09 00:00:00 2023-07-09 00:00:00 (TEL) STLMLC STLMLC [id number] [facility] 2023-07-06 00:00:00 2023-07-06 00:00:00 (TEL) STLMLC STLMLC [id number] [facility] 2023-07-06 00:00:00 2023-07-06 00:00:00 OFFICE VISIT NEW PT LEVEL 4 STLMLC STLMLC [id number] [facility] 2023-07-06 00:00:00 2023-07-06 00:00:00 (TEL) STLMLC STLMLC [id number] [facility] 2023-07-05 00:00:00 2023-07-05 00:00:00 (TEL) STLMLC STLMLC [id number] [facility] 2023-06-28 00:00:00 2023-06-28 00:00:00 (TEL) STLMLC STLMLC [id number] [facility] 2023-06-25 00:00:00 2023-06-25 00:00:00 (TEL) STLMLC STLMLC [id number] [facility] 2023-06-25 00:00:00 2023-06-25 00:00:00 (TEL) STLMLC STLMLC [id number] [facility] 2023-06-20 00:00:00 2023-06-20 00:00:00 (TEL) STLMLC STLMLC [id number] [facility] 2023-06-14 00:00:00 2023-06-14 00:00:00 (TEL) STLMLC STLMLC [id number] [facility] 2023-06-11 00:00:00 2023-06-11 00:00:00 (EST. VIDEO) EST VIRTUAL VIDEO VISIT STLMLC STLMLC [id number] [facility] 2023-06-07 00:00:00 2023-06-07 00:00:00 (TEL) STLMLC STLMLC [id number] [facility] 2023-06-07 00:00:00 2023-06-07 00:00:00 (TEL) STLMLC STLMLC [id number] [facility] 2023-05-17 00:00:00 2023-05-17 00:00:00 OFFICE VISIT ESTAB PT LEVEL 4 STLMLC STLMLC [id number] [facility] 2023-05-17 00:00:00 2023-05-17 00:00:00 SUB ANNUAL [facility] WELLNESS VISIT STLMLC STLMLC [id number] [facility] 2023-05-17 00:00:00 2023-05-17 00:00:00 (TEL) STLMLC STLMLC [id number] [facility] 2023-05-10 00:00:00 2023-05-10 00:00:00 (TEL) STLMLC STLMLC [id number] [facility] 2023-04-02 00:00:00 2023-04-02 00:00:00 OFFICE VISIT ESTAB PT LEVEL 3 STLMLC STLMLC [id number] [facility] 2023-03-30 00:00:00 2023-03-30 00:00:00 (TEL) STLMLC STLMLC [id number] [facility] 2023-03-29 00:00:00 2023-03-29 00:00:00 (TEL) STLMLC STLMLC [id number] [facility] 2023-03-20 00:00:00 2023-03-20 00:00:00 Ian Monzon MD: [address] [place] [id number] , Ph. [phone] [place] [facility] [place] [facility] [id number] [facility] 2023-03-09 00:00:00 2023-03-09 00:00:00 (TEL) [facility] [id number] [facility] 2023-03-09 00:00:00 2023-03-09 00:00:00 (EST. VIDEO) EST VIRTUAL VIDEO VISIT [facility] [id number] [facility] 2023-03-07 00:00:00 2023-03-07 00:00:00 Outpatient FOG_Behrens _Jon_MD AOSM AOSM [id number] [facility] 2023-03-05 00:00:00 2023-03-05 00:00:00 (TEL) [facility] [id number] [facility] 2023-02-23 00:00:00 2023-02-23 00:00:00 Outpatient FOG_Behrens _Jon_MD AOSM AOSM [id number] [facility] 2023-02-20 00:00:00 2023-02-20 00:00:00 (TEL) [facility] [id number] [facility] 2023-01-01 00:00:00 2023-01-01 00:00:00 Outpatient FOG_Burke_R obert_MD AOSM AOSM [id number] [facility] 2023-01-01 00:00:00 2023-01-01 00:00:00 Outpatient FOG_Burke_R obert_MD AOSM AOSM [id number] [facility] 2023-01-01 00:00:00 2023-01-01 00:00:00 Outpatient FOG_Burke_R obert_MD AOSM AOSM [id number] [facility] 2022-12-25 00:00:00 2022-12-25 00:00:00 Outpatient GC_GCBZW_Ka dinapoleona_S [facility] [id number] [facility] 2022-12-24 00:00:2022-12-24 00:00:00 Outpatient GC_GCBZW_Ka diyala_S [facility] [id number] [facility] 2022-12-20 15:46:00 2022-12-21 16:12:00 Inpatient Ian Kerr HCATO SURG [id number] [facility] [place] [facility] 2022-12-08 16:36:00 2022-12-08 16:36:00 Outpatient Ian Monzon HCACL LABO [id number] [facility] 2022-10-10 08:00:00 2022-12-08 16:00:00 Outpatient Carlie Simmons HCATO LABO [id number] [facility] [place] [facility] 2022-12-08 10:50:00 2022-12-08 10:50:00 Outpatient Ian Kerr HCATO RADI [id number] [facility] [place] [facility] 2022-11-29 00:00:00 2022-11-29 00:00:00 Outpatient FOG_Burke_R Redd AOSM AOSM [id number] [facility] 2022-11-29 00:00:00 2022-11-29 00:00:00 Outpatient FOG_BurkLencho Rainey AOSM AOSM [id number] [facility] 2022-11-29 00:00:00 2022-11-29 00:00:00 Outpatient FOG_BurkeJonathanR Redd AOSM AOSM [id number] [facility] 2022-11-29 00:00:00 2022-11-29 00:00:00 Outpatient FOG_Burke_R Redd AOSM AOSM [id number] [facility] 2022-11-29 00:00:00 2022-11-29 00:00:00 Outpatient FOG_Burke_R Redd AOSM AOSM [id number] [facility] 2022-11-29 00:00:00 2022-11-29 00:00:00 Outpatient FOG_Burke_R obdenis_ AOSM AOSM [id number] [facility] 2022-11-29 00:00:00 2022-11-29 00:00:00 Outpatient FOG_Burke_R obert_ AOSM AOSM [id number] [facility] 2022-11-23 00:00:00 2022-11-23 00:00:00 (TEL) [facility] [id number] [facility] 2022-11-21 00:00:00 2022-11-21 00:00:00 OFFICE VISIT ESTAB PT LEVEL 4 [facility] [id number] [facility] 2022-11-14 00:00:00 2022-11-14 00:00:00 (TEL) [facility] [id number] [facility] 2022-11-13 00:00:00 2022-11-13 00:00:00 Outpatient FOG_Burke_R obdenis_ AOSM AOSM [id number] [facility] 2022-11-13 00:00:00 2022-11-13 00:00:00 Outpatient FOG_Burke_R obert_ AOSM AOSM [id number] [facility] 2022-11-13 00:00:00 2022-11-13 00:00:00 Outpatient FOG_Burke_R obert_ AOSM AOSM [id number] [facility] 2022-11-13 00:00:00 2022-11-13 00:00:00 (TEL) [facility] [id number] [facility] 2022-11-09 00:00:00 2022-11-09 00:00:00 OFFICE VISIT NEW PT LEVEL 3 [facility] [id number] [facility] 2022-11-07 00:00:00 2022-11-07 00:00:00 OFFICE VISIT ESTAB PT LEVEL 4 STLC STLC [id number] [facility] 2022-11-07 00:00:00 2022-11-07 00:00:00 (TEL) STLC STLC [id number] [facility] 2022-11-02 00:00:00 2022-11-02 00:00:00 (TEL) STLC STLC [id number] [facility] 2022-10-10 17:10:00 2022-10-10 17:10:00 Outpatient Radhika Davidtanikamarquita [facility] LABO [id number] [facility] 2022-10-10 08:00:00 2022-10-10 09:00:00 Outpatient Ian Kerr [facility] 3DAY [id number] [facility] 2022-10-09 00:00:00 2022-10-09 00:00:00 Outpatient FOG_Burke_R Redd AOSM AOSM [id number] [facility] 2022-10-09 00:00:00 2022-10-09 00:00:00 Outpatient FOG_Burke_R obert_ AOSM AOSM [id number] [facility] 2022-10-09 00:00:00 2022-10-09 00:00:00 OFFICE VISIT ESTAB PT [facility]EVEL [facility] [id number] [facility] 2022-10-06 00:00:00 2022-10-06 00:00:00 (TEL) STLC STLC [id number] [facility] 2022-09-06 00:00:00 2022-09-06 00:00:00 (TEL) STLC STLC [id number] [facility] 2022-09-05 00:00:00 2022-09-05 00:00:00 Outpatient FOG_Burke_R obert_MD AOSM AOSM [id number] [facility] 2022-08-21 00:00:00 2022-08-21 00:00:00 OFFICE VISIT ESTAB PT LEVEL 4 [facility] [id number] [facility] 2022-08-21 00:00:00 2022-08-21 00:00:00 SUB ANNUAL [facility] WELLNESS VISIT [facility] [id number] [facility] 2022-02-08 00:00:00 2022-02-08 00:00:00 (TEL) [facility] [id number] [facility] 2022-01-05 00:00:00 2022-01-05 00:00:00 Outpatient FOG_Olinda Rainey AOSM AOSM [id number] [facility] 2022-01-05 00:00:00 2022-01-05 00:00:00 Outpatient FOG_Olinda Rainey AOSM AOSM [id number] [facility] 2022-01-05 00:00:00 2022-01-05 00:00:00 Outpatient FOG_Olinda Rainey AOSM AOSM [id number] [facility] 2021-12-16 00:00:00 2021-12-16 00:00:00 Outpatient FOG_BurkeJonathanR Redd AOSM AOSM [id number] [facility] 2021-12-14 00:00:00 2021-12-14 00:00:00 (TEL) [facility] [id number] [facility] 2021-12-12 00:00:00 2021-12-12 00:00:00 Outpatient FOG_BurkLencho Rainey AOSM AOSM [id number] [facility] 2021-12-12 00:00:00 2021-12-12 00:00:00 Carlie Garrido MD: [address] [facility], [place] [address] , Ph. [phone] [place] [facility] [place] [facility] [id number] [facility] 2021-12-12 00:00:00 2021-12-12 00:00:00 OFFICE VISIT ESTAB PT LEVEL 4 [facility] [id number] [facility] 2021-12-11 00:00:00 2021-12-11 00:00:00 Outpatient FOG_Burke_R Redd AO [place] [id number] [facility] 2021-12-09 00:00:00 2021-12-09 00:00:00 (TEL) [facility] [id number] [facility] 2021-11-02 00:00:00 2021-11-02 00:00:00 Outpatient FOG_Burke_R Redd AO AO [id number] [facility] 2021-09-28 00:00:00 2021-09-28 00:00:00 OFFICE VISIT ESTAB PT LEVEL 4 [facility] [id number] [facility] 2021-09-12 12:59:00 2021-09-12 12:59:00 Outpatient FOG_Burkmarlin_R Redd AO AO [id number] [facility] 2021-08-24 00:00:00 2021-08-24 00:00:00 (TEL) [facility] [id number] [facility] 2021-08-15 00:00:00 2021-08-15 00:00:00 OFFICE VISIT EST PT LEVEL 3 [facility] [id number] [facility] 2021-07-18 00:00:00 2021-07-18 00:00:00 OFFICE VISIT EST PT LEVEL 3 [facility] [id number] [facility] 2021-07-06 00:00:00 2021-07-06 00:00:00 (TEL) STLMLC STLMLC [id number] [facility] 2021-06-30 00:00:00 2021-06-30 00:00:00 OFFICE VISIT NEW PT LEVEL 3 STLMLC STLMLC [id number] [facility] 2021-06-29 00:00:00 2021-06-29 00:00:00 OL DIG E/M SVC 21+ MIN STLMLC STLMLC [id number] [facility] 2021-06-24 00:00:00 2021-06-24 00:00:00 (TEL) STLMLC STLMLC [id number] [facility] 2021-03-11 00:00:00 2021-03-11 00:00:00 OFFICE VISIT ESTAB PT LEVEL 4 STLMLC STLMLC [id number] [facility] 2020-12-03 00:00:00 2020-12-03 00:00:00 OFFICE VISIT ESTAB PT LEVEL 4 STLMLC STLMLC [id number] [facility] 2020-10-06 00:00:00 2020-10-06 00:00:00 (TEL) STLMLC STLMLC [id number] [facility] 2020-09-03 00:00:00 2020-09-03 00:00:00 Outpatient STLMLC STLMLC [id number] [facility] 2020-09-03 00:00:00 2020-09-03 00:00:00 Outpatient STLMLC STLMLC [id number] [facility] 2020-08-23 00:00:00 2020-08-23 00:00:00 (TEL) STLMLC STLMLC [id number] [facility] 2020-06-28 00:00:00 2020-06-28 00:00:00 Outpatient STLMLC STLMLC [id number] [facility] 2020 00:00:00 2020 00:00:00 Outpatient STLMLC STLMLC [id number] [facility] 2020-01-29 00:00:00 2020-01-29 00:00:00 Outpatient STLMLC STLMLC [id number] [facility] 2020-01-29 00:00:00 2020-01-29 00:00:00 Outpatient STLMLC STLMLC [id number] [facility] 2019-09-15 00:00:00 2019-09-15 00:00:[address] [facility] [id number] [facility] 2019-06-16 08:40:00 2019-06-16 08:40:[address] [facility] [id number] [facility] 2019-05-30 15:47:00 2019-05-30 15:47:[address] [facility] [id number] [facility] 2019-02-07 08:40:00 2019-02-07 08:40:[address] [facility] [id number] [facility] 2019-01-30 16:14:00 2019-01-30 16:14:[address] [facility] [id number] [facility] 2018-11-08 08:40:00 2018-11-08 08:40:[address] [facility] [id number] [facility] 2018-10-22 08:20:00 2018-10-22 08:20:[address] [facility] [id number] [facility] 2018-05-06 08:30:00 2018-05-06 08:30:[address] [facility] [id number] [facility] Results Test Description Test Time Test Comments Results Resul t Comments Source - XR KNEE 1 OR 2 V RT 2022-12-19 10:07:[facility] 1960 Sex: F Patient Name: YOUNG FIGUEROA Unit No: [id number] EXAMS: CPT CODE: [id number] XR KNEE 1 OR 2 [place] RT 35539 IMAGES PROVIDED: 2 FINDINGS: Postoperative changes from right total knee arthoplasty demonstrated without evidence of immediate complication. No acute fracture is visualized. IMPRESSION: Postoperative exam as above. at 1007 Reported and signed by: Brendon Delgadillo M.D. CC: Ian Monzon MD Technologist: RAFFI PEREZ ARRT Transcribed D/ (1007) JaentteSLJ [facility] NAME: YOUNG FIGUEROA [address] [facility] PHYS: Ian Mix MD : 1960 AGE: 62 SEX: F [place], [place] [address] LOC: Y.504 A PHONE #: [phone] EXAM DATE: 12/18/2022 STATUS: ADM IN FAX #: [phone] RAD #: D/C DT PAGE 1 Signed Report Patient Name: YOUNG FIGUEROA Unit No: [id number] EXAMS: CPT CODE: [id number] XR KNEE 1 OR 2 V RT 84414 (Continued) Orig Print D/T: S: 12/20/2022 (0735) [facility] NAME: YOUNG FIGUEROA [address] [facility] PHYS: Ian Mix MD : 1960 AGE: 62 SEX: F [place] [address] LOC: YAndrew A PHONE #: [phone] EXAM DATE: 12/18/2022 STATUS: ADM IN FAX #: [phone] RAD #: D/C DT PAGE 2 Signed Report SPECIMEN COMMENT: POD #1- US EXTREM NON VASC [id number] 08:06:00 [facility] : 1960 Sex: F Patient Name: YOUNG FIGUEROA Unit No: [id number] EXAMS: CPT CODE: [id number] US EXTREM NON VASC COMP 13424 TECHNIQUE: Callaway scale and Doppler sonographic evaluation [...] Brendon Delgadillo M.D. CC: Carlie Garrido MD [facility] nologist: MONICA EASLEY RDMS, RVT Transcribed D/ (805) Jimenez [facility] NAME: YOUNG FIGUEROA [address] [facility] PHYS: UNDEFINED - Undefined Provider : 1960 AGE: 62 SEX: F [place] [address] LOC: Y.RAD PHONE #: [phone] EXAM DATE: 12/08/2022 STATUS: DEP CLI FAX #: [phone] RAD #: D/C DT PAGE 1 Signed Report Patient Name: YONUG FIGUEROA Unit No: [id number] EXAMS: CPT CODE: [id number] US EXTREM NON VASC COMP 48811 (Continued) Orig Print D/T: S: 12/11/2022 (0809) [facility] NAME: YOUNG FIGUEROA [address] [facility] PHYS: UNDEFINED - Undefined Provider : 1960 AGE: 62 SEX: F [place], [place] [address] LOC: Y.RAD PHONE #: [phone] EXAM DATE: 12/08/2022 STATUS: DEP CLI FAX #: [phone] RAD #: D/C DT PAGE 2 Signed [...] fructosamineshould be considered for these patients.DONE AT: [facility] [address] [facility], [place] [address] GLYCOSYLATED HEMOGLOBIN (HA1C)2022-12-08 21:01:00* Test Item Value [...] be considered for these patients. COMPREHENSIVE METABOLIC [id number] 14:03:00* Test Item Value Reference Range Interpretation [...] ALKP) 109 U/L 46-116 N C REACTIVE [id number] 14:02:00* Test Item Value Reference Range Interpretation Comme nts C REACTIVE PROTEIN (test code = CRP) 2.54 mg/dL < 0.3 H Please note ne w normal range. CBC W/AUTO [id number] 12:24:00* Test Item Value Reference Range Interpretation [...] = NRBC) 0 % 0-0 N PROTHROMBIN [id number] 12:24:00* Test Item Value Reference Range Interpretation [...] Patient is on Heparin Drip? NOTHROMBOPLASTIN TIME [id number] 12:24:00* Test Item Value Reference Range Interpretation Comme nts PTT ACTIVATED (test code = APTT) 33.5 secs 25.1-36.5 N IS PATIENT ON ANTICOAGULANTS ? TNas Lab been notified if Patient is on Heparin Drip? NOTSH REFLEX TO FREE [id number] 00:00:00* Test Item Value Reference Range Interpretation Comme nts TSH REFLEX TO FREE T4 (test code = 59920-1) >100.000 UIU/ML See_Comment H [Automated [employer]!a ge] The system which generated this result transmitted reference range: 0.400-4.100 UIU/ML. The reference range was not used to interpret this result as normal/abnormal. CBC W/AUTO [id number] 00:00:00* Test Item Value Reference Range Interpretation Comme nts NUCLEATED RBCS (test code = 64256-9) 0.0 /100 WBC'S See_Comment [Automated messa ge] The system which generated this result transmitted reference range: 0.0 /100 WBC'S. The reference range was not used to interpret this result as normal/abnormal. ABSOLUTE EOSINOPHILS (test code = 98667-1) 0.00 K/UL See_Comment [Automated messa ge] The system which generated this result transmitted reference range: 0.00-0.50 K/UL. The reference range was not used to interpret this result as normal/abnormal. ABSOLUTE LYMPHOCYTES (test code = 91754-9) 1.46 K/UL See_Comment [Automated messa ge] The system which generated this result transmitted reference range: 1.00-4.00 K/UL. The reference range was not used to interpret this result as normal/abnormal. ABSOLUTE MONOCYTES (test code = 51000-0) 0.71 K/UL See_Comment [Automated messa ge] The system which generated this result transmitted reference range: 0.20-1.00 K/UL. The reference range was not used to interpret this result as normal/abnormal. ABSOLUTE NEUTROPHILS (test code = 68349-5) 6.05 K/UL See_Comment [Automated messa ge] The system which generated this result transmitted reference range: 1.50-7.50 K/UL. The reference range was not used to interpret this result as normal/abnormal. BASOPHILS (test code = 16918-2) 0.6 % EOSINOPHILS (test code = 83950-6) 0.0 % HEMATOCRIT (test code = 24144-2) 37.6 % See_Comment [Automated messa ge] The [...] result as normal/abnormal. LYMPHOCYTES (test code = 85742-7) 17.6 % MCH (test code = 67026-9) 32.0 PG See_Comment [Automated messa ge] The system which generated this result transmitted reference range: 25.0-33.0 PG. The reference range was not used to interpret this result as normal/abnormal. MCHC (test code = 34114-5) 33.8 G/DL See_Comment [Automated messa ge] The system which generated this result transmitted reference range: 31.0-36.0 G/DL. The reference range was not used to interpret this result as normal/abnormal. MCV (test code = 73023-6) 94.7 fL See_Comment [Automated messa ge] The system which generated this result transmitted reference range: 80.0-99.0 fL. The reference range was not used to interpret this result as normal/abnormal. MONOCYTES (test code = 78494-6) 8.6 % NEUTROPHILS (test code = 38588-2) 72.8 % PLATELET COUNT (test code = 53097-7) 329 K/UL See_Comment [Automated messa ge] The system which generated this result transmitted reference range: 130-400 K/UL. The reference range was not used to interpret this result as normal/abnormal. RBC (test code = 93718-4) 3.97 M/UL See_Comment [Automated messa ge] The system which generated this result transmitted reference range: 3.80-5.40 M/UL. The reference range was not used to interpret this result as normal/abnormal. RDW (test code = 83636-1) 14.5 % See_Comment [Automated messa ge] The system which generated this result transmitted reference range: 11.5-15.0 %. The reference range was not used to interpret this result as normal/abnormal. WBC (test code = 85061-9) 8.3 K/UL See_Comment [Automated messa ge] The system which generated this result transmitted reference range: 3.5-11.0 K/UL. The reference range was not used to interpret this result as normal/abnormal. HEMOGLOBIN [id number] 00:00:00* Test Item Value Reference Range Interpretation Comme nts HEMOGLOBIN A1c (test code = 4548-4) 5.0 % See_Comment [Automated messa ge] The system which generated this result transmitted reference range: 4.2-5.6 %. The reference range was not used to interpret this result as normal/abnormal. FREE T4 (THYROXINE)2022-11-21 00:00:00* Test Item Value Reference Range Interpretation [facility] FREE T4 (THYROXINE) (test code = 3024-7) 0.73 NG/DL See_Comment L [Automated [employer]!a ge] The system which generated this result transmitted reference range: 0.80-1.90 NG/DL. The reference range was not used to interpret this result as normal/abnormal. HEPATITIS C OHHYHUGK1840-08-42 00:00:00* Test Item Value Reference Range Interpretation [facility] HEPATITIS C ANTIBODY (test c ode = 51155-7) NON-REACTIVE NON-REACTIVE LIPID PANEL WITH REFLEX DIRECT TDM0780-49-16 00:00:00* Test Item Value Reference Range Interpretation [facility] CALC LDL CHOL (test code = 64704-1) 62 MG/DL See_Comment [Automated [employer]!a ge] The system which generated this result transmitted reference range: <100 MG/DL. The reference range was not used to interpret this result as normal/abnormal. CHOLESTEROL (test code = 2093-3) 146 MG/DL See_Comment [Automated [employer]!a ge] The system which generated this result transmitted reference range: <200 MG/DL. The reference range was not used to interpret this result as normal/abnormal. HDL CHOLESTEROL (test code = 2085-9) 71 MG/DL See_Comment [Automated [employer]a ge] The system which generated this result transmitted reference range: >39 MG/DL. The reference range was not used to interpret this result as normal/abnormal. RISK RATIO LDL/HDL (test code = 13665-6) 0.87 RATIO See_Comment [Automated message] The system which generated this result transmitted reference range: <3.22 RATIO. The reference range was not used to interpret this result as normal/abnormal. TRIGLYCERIDES (test code = 2571-8) 54 MG/DL See_Comment [Automated [employer]a ge] The system which generated this result transmitted reference range: <150 MG/DL. The reference range was not used to interpret this result as normal/abnormal. COMPREHENSIVE METABOLIC [id number] 00:00:00* Test Item Value Reference [facility] (test code = 1751-7) 4.1 G/DL [...] result as normal/abnormal. CALCIUM (test code = 72750-8) 9.5 MG/DL See_Comment [Automated messa ge] The [...] as normal/abnormal. CALC GLOBULIN (test code = 67479-0) 3.2 G/DL See_Comment [Automated messa ge] The [...] normal/abnormal. eGFR (2020 CKD-EPI) (test code = 67229-9) 103 ML/MIN/1.73 See_Comment [Automated message] The system [...] interpret this result as normal/abnormal. COMPREHENSIVE METABOLIC WTBIX5642-02-80 14:27:00* Test Item Value Reference Range Interpretation [...] = ALKP) 81 U/L 46-116 N PROTHROMBIN TLYC0174-15-14 13:31:00* Test Item Value Reference Range Interpretation [...] Patient is on Heparin Drip? NOTHROMBOPLASTIN TIME VZUNUZN9290-52-93 13:31:00* Test Item Value Reference Range Interpretation Comme nts PTT ACTIVATED (test code = APTT) 37.0 secs 25.1-36.5 H IS PATIENT ON ANTICOAGULANTS ? [facility] been notified if Patient is on Heparin Drip? NOCBC W/AUTO MRTM3122-44-25 13:05:00* Test Item Value Reference Range Interpretation [...] Notes Date/Time Note Provider Source 2023-01-25 12:51:00 [id number] ok77EnZegAh8YcyEAf6mn+AjnXs0I TCbYwWsQJnxEK8lYxIDshPeSKgV4166-72-69G29:51:00 [facility] ([facility])Discharge SummaryREPORT#:[id number] REPORT STATUS: SignedREPORT INITIALIZATION DATE:01/25/23 TIME: 125 PATIENT: YOUNG FIGUEROA UNIT #: [id number]#: [id number] [facility] [birth year] AGE: 62 SEX: F ATTEND: Ian Monzon MDADM AUTHOR: Ian Monzon MDREPT SERVICE DT/TIME: 12/21/22 1251* ALL edits or amendments must be made on the electronic/computer document * PCP PCPPCP:PCP: Ian Monzon MD Discharge to: home General InformationDate of admission:Observation Start Date: 12/18/22Date of admission: 12/20/22 Discharge date: 12/21/22Discharge diagnosis:Right distal femur fracture, [place] knee fusionHospital course: Discharge Diagnosis: Right Knee distal femur fracture, [place] knee fusion s/p complex right distal femoral [...] Will undergo PT for gait training, mobilization, tbnqk-qs-mthlsx, and strengthening. Patient was informed that they need to arrange for therapy as quickly as possible. The importance of early advancement of mbttw-ie-sazsei withhome exercises, and physical therapy was stressed [...] SCHEDULE A FOLLOW-UP APPOINTMENT at [address] [facility] #:[id number] OF REPORT DSDischarge bcfzgtv9169-80-69L34:51:00Y.ORXC20599130-7601XRZa ailable for patient ducpAWOPUWCMANMTBY1529-28-91Z44:57:07 [facility] 09:29:00 [id number] Kt3jvrwOp37Ji9DlaRGM+8D/bYNorthern [facility] x79mgcX0fSt8Upy3DzZgLRmch5t7177-68-95J92:29:00 [facility] ([facility])Clinical NoteREPORT#:[id number] REPORT STATUS: SignedREPORT INITIALIZATION DATE:12/21/22 TIME: 928 PATIENT: YOUNG FIGUEROA UNIT #: [id number]#: [id number] ROOM/BED: [facility]-ADOB: [birth year] AGE: 62 SEX: F ATTEND: Ian Monzon MDADM AUTHOR: Miguel Angel Howe MDREPT SERVICE DT/TIME: 12/21/22928* ALL edits or amendments must be made on the electronic/computer document * Clinical NoteNote:[facility] Miguel Angel Kenney M.D. (cell text [phone]) Assessment/Plan1.) Anemia of acute blood loss- .Hgb [...] Miguel Angel Kenney M.D. at 1052 RPT #:[id number] OF REPORT CLClinical wepm1973-62-72K77:29:00Y.RKGA99478292-6373TTNnmlc able for patient qhzdQQIQVEKQWIUTQO3567-34-51Z60:53:47 [facility] 2022-12-21 08:27:00 W43090842427nR0JT9uu cQInCRDrErjaXwP0nW1DGprhV9SkP Ljj8swQWzH9bTp5wCTylo8JdMc41913-62-68Z34:27:00 [facility] ([facility])Orthopaedic Progress NoteREPORT#:[id number] REPORT STATUS: SignedREPORT INITIALIZATION DATE:12/21/22 TIME: 826 PATIENT: YOUNG FIGUEROA UNIT #: [id number]#: [id number] ROOM/BED: [facility]-ADOB: [birth year] AGE: 62 SEX: F ATTEND: [...] weeks for wound check at 0829 RPT #:[id number] OF REPORT PRProgress bejd6261-40-76R16:27:00Y.MPSX65000424-8102FQMwpww able for patient yxfwBGIIMAVADKVSIW6828-96-22S11:30:03 [facility] 2022-12-20 14:04:00 [id number] pWM8Rpw5uhn1drtyw7OEc/y7OjQF8 M5r16FiDSmWisdyRvI0bgmVlBQB5079-33-30E61:04:00 [facility] ([facility])DT Operative NoteREPORT#:[id number] REPORT STATUS: SignedREPORT INITIALIZATION DATE:12/20/22 TIME: 1403 PATIENT: YOUNG FIGUEROA UNIT #: [id number]#: [id number] [facility] [birth year] AGE: 62 SEX: F ATTEND: Ian [...] Primary Surgeon:Ian Monzon MD Co-surgeon:Eun Bhakta MD Director Digital Sales(s): Alida Santana MD and Haim Nails Complications: none Estimated blood loss in ml's: 150cc Drain(s): Bang Catheter Anesthesia: General Wound class: clean Implants: Depuy LPS Right XS Distal Femoral component, attune knee system revision tibial base rotating platform size 6 cemented, LPS stem 12 x 100 mm cemented, 14 x 50 mm tibial stem extension, attune knee revision LPS insert 16mmXS, [place] symmetric tibial cone augment size B Modifier: [...] replacing prosthesis. Goals of the procedure include muslim of joint stability and motion as well as pain control in the setting of significantdeformity and altered anatomy. Water Quality Manager: The skilled assistance of the licensed loan officer assistant surgeon was necessary during this reconstructive [...] possible without the help of a skilled licensed loan officer assistant familiar with the procedure and capable [...] then prepped for a cone with the [place] broach to a size B. The tibia [...] recovery in stable condition. at 1408 RPT #:[id number] OF REPORT OPOperative kynwoh3049-36-78T57:04:00Y.LNXC65592767-7259SCFpc ilable for patient idduVGFYGHAOBDVBEB5086-80-28J05:08:24 [facility] 2022-12-20 14:00:00 Q07091334607/4mxpqLT P6+h0B3weGS6sgV4uNx+CLBbBZhJD NDBBGMaavZMbIPXvMPE0GeOUyJ74374-88-12E02:00:00 [facility] ([facility])Orthopaedic Progress NoteREPORT#:[id number] REPORT STATUS: SignedREPORT INITIALIZATION DATE:12/20/22 TIME: 1400 PATIENT: YOUNG FIGUEROA UNIT #: [id number]#: [id number] [facility]: [birth year] AGE: 62 SEX: F ATTEND: Ian [...] plan for tomorrow 12/21 at 1404 RPT #:[id number] OF REPORT PRProgress vexs5878-30-77C78:00:00Y.GCRK58763218-7176HGEybjr able for patient bneuTMLYISBIYWIUQR3083-11-38Z19:04:53 [facility] 2022-12-20 09:40:00 [id number] 64p8bxixQjj/b3F+/HdwfCBroklr4 s/LgI0QTwaGTPXB8aCEV0d9SnZH0953-98-15E36:40:00 [facility] ([facility])Clinical NoteREPORT#:[id number] REPORT STATUS: SignedREPORT INITIALIZATION DATE:12/20/22 TIME: 939 PATIENT: YOUNG FIGUEROA UNIT #: [id number]#: [id number] ROOM/BED: [facility]-ADOB: [birth year] AGE: 62 SEX: F ATTEND: Ian Monzon [facility] AUTHOR: Miguel Angel Howe MDREPT SERVICE DT/TIME: 12/20/22 0940* ALL edits or amendments must be made on the electronic/computer document * Clinical NoteNote:[facility] Miguel Angel Kenney M.D. (cell text [phone]) Assessment/Plan1.) Anemia of acute blood loss- .Hgb [...] Miguel Angel Kenney M.D. at 1158 RPT #:[id number] OF REPORT CLClinical comu0546-10-97O22:40:00Y.LPNK47193360-4281QJKqcbe able for patient dhyoTESFRFOCBTMOHI8657-27-82D30:59:18 [facility]22-[facility] 10:36:00 A03717231362VvMewYkt PqC4PWlgk2FfFrKCHIeiakkJlriDw ljZwngyw121F6gLsZ4jhUG789wW4214-73-78R39:36:00 [facility] ([facility])Orthopaedic Progress NoteREPORT#:[id number] REPORT STATUS: SignedREPORT INITIALIZATION DATE:12/19/22 TIME: 1036 PATIENT: YOUNG FIGUEROA UNIT #: [id number]#: [id number] [facility] [birth year] AGE: 62 SEX: F ATTEND: Ian [...] physical therapy, likely tomorrow 12/20 at 1041 RPT #:[id number] OF REPORT PRProgress lsdi4061-40-82C20:36:00Y.NJIX09889331-0565HTLohyu able for patient hrkwNOHMLPVBNSFZVH7572-62-25V27:42:18 [facility] 2022-[facility]-19 09:38:00 [id number] DpsHCflQG0qwxU9yR9LzdY5F9m825 Voxa9aPA++6+TpF7iFnMN2l7v0z9026-61-21P19:38:00 [facility] ([facility])Clinical NoteREPORT#:[id number] REPORT STATUS: SignedREPORT INITIALIZATION DATE:12/19/22 TIME: 937 PATIENT: YOUNG FIGUEROA UNIT #: [id number]#: [id number] [facility] [birth year] AGE: 62 SEX: F ATTEND: Ian Monzon MDADM AUTHOR: Miguel Angel Howe MDREPT SERVICE DT/TIME: 12/19/22 0938* ALL edits or amendments must be made on the electronic/computer document * Clinical NoteNote:[facility] Miguel Angel Kenney M.D. (cell text [phone]) Assessment/Plan1.) Anemia of acute blood loss- .Hgb [...] 27.5 L Miguel Angel Kenney M.D. at [address] [place] [address] #:[id number] OF REPORT CLClinical ksuk4016-75-58J76:38:00Y.PFIN08810459-5751IBUlvzz able for patient kxfaGBJPYKVAODMBCJ7334-18-11Q63:38:38 [facility] 2022-12-18 15:52:00 K92290710135EaEJ+CRf XHVMSxQJQCqd6Qr0bytqPJ/74AsEu pDbZHuf8gNpC5/j0CvLcL4sDLGD1415-33-27F88:52:00 [facility] ([facility])Clinical NoteREPORT#:[id number] REPORT STATUS: SignedREPORT INITIALIZATION DATE:12/18/22 TIME: 1551 PATIENT: YOUNG FIGUEROA UNIT #: [id number]#: [id number] [facility] [birth year] AGE: 62 SEX: F ATTEND: Ian Monzon MDADM AUTHOR: Miguel Angel Howe MDREPT SERVICE DT/TIME: 12/18/221551* ALL edits or amendments must be made on the electronic/computer document * Clinical NoteNote:[facility] Miguel Angel Kenney MD(cell text [phone])Internal Medicine Consult at request of : Dr. Ian Monzon Chief Complaint: right distal femur fracture HPI: 62 yo F is now s/p Right knee fusion takedown, complex primary right kneearthroplasty to distal femur replacement by Dr. Monzon Ms. Figueroa has a h/o [place] knee fusion secondary to trauma and rheumatoid [...] Nasal 3 cannula 12/18 1215 78 16 116 100 Nasal 3 cannula 12/18 1159 77 [...] normal parameters and a f/u plan is ifidxwdbdsB9373 - Patient screened for tobacco use AND identified as a tobacco non-cytm2445M - ACP discussion - default code status while at [facility]. at 2125 RPT #:[id number] OF REPORT CLClinical axzt8966-36-09H43:52:00Y.QLRF89738023-5286IZIpsis able for patient lxqhTLFLSTDZKFAYCL4377-72-69N41:25:29 [facility] 2022-12-18 11:46:00 W26640273914ljXsrR+0 kF4sbWeZRjW1DPvC9VAOhypq7VFHj NLPryDYa3ckD+fi+g4CZ+ksDxQy1512-62-76C69:46:00 [facility] ([facility])Brief Op NoteREPORT#:[id number] REPORT STATUS: SignedREPORT INITIALIZATION DATE:12/18/22 TIME: 114 PATIENT: YOUNG FIGUEROA UNIT #: [id number]#: [id number] [address] [birth year] AGE: 62 SEX: F ATTEND: Ian Monzon MDADM AUTHOR: Ian Monzon MDREPT SERVICE DT/TIME: 12/18/22 1146* ALL edits or amendments must be made on the electronic/computer document * Op/Inv Proc Note - BriefPre-procedure diagnosis:R distal femur fracture, [place] knee fusionPost-procedure diagnosis: same as pre procedure dx (same )Procedures performed:Right knee fusion takedown, complex primary knee arthroplasty to distal femoral replacement Primary Surgeon:Ian Monzon MDCo-surgeon:Eun Bhakta MDAssistant(s): Max CHAVARRIA and Haim Nails Findings:See dictated op noteComplications: noneEstimated blood loss in ml's: 150ccSpecimens removed/altered: none (distal femur malunited fractur), distal femur malunited fractureDrain(s): Bang Catheter PlacedWound class: clean at 1155 RPT #:[id number] OF REPORT OPOperative uybquu6084-84-94T12:46:00Y.KQVD51197440-1032RTPwx ilable for patient meraMQAJEFKIPKVEIT5563-67-92L73:58:06 [facility] 11:27:00 [id number]+PSFWhzM ZUlHMASG3/wyEoUEm975r7iTchTrz syKCpyf70j7O0uFlzNPA0ILjzR/9515-11-71I86:27:61429 7-0066 [place] [address] PATIENT NAME: YOUNG FIGUEROA ADMIT DATE: ACCOUNT NO: [id number] ROOM NO: AGE: 62 REPORT TYPE: ELECTROCARDIOGRAM SEX: F ADMITTING PHYSICIAN: ATTENDING PHYSICIAN:Carlie Garrido MD Order:[id number] Reason : PRE OP CLEARANCE HTN Test [...] previous ECGs availableConfirmed by WILLARD COOPER MD ([id number]) on 10/12/2022 12:28:11 PM Referred By: Carlie Garrido Confirmed by:WILLARD COOPER MD PATIENT NAME: YOUNG FIGUEROA .[id number] AVAvailable for patient ojjuJBCXHQAHSEFAXT3093-97-93N40:28:33 [facility]
[2023-07-22] MEDS ORDERED: FLUCONAZOLE 100 MG TAB ONE (18:07)
--- NOTE | 2023-07-22 19:38 | EDPHYS ---
Physician Documentation [facility] Name: Young Gates Age: 63 yrs Sex: Female : 1960 Arrival Date: 07/22/2023 Time: 17:22 Bed 16 Private MD: ED Physician Janes Higginbotham HPI: 07/22 00:00 This 63 yrs old Female presents to ER via EMS with complaints of Problem With Urinary kb Catheter. 00:00 Pt is a 63 year old female who presents for leaking bang catheter. States the catheter kb started leaking today. Also reports her caregiver told her she had some cottage cheese discharge starting up again so she would like something for a yeast infection. States she gets them occasionally. Denies fever, abd pain. . Historical: - Allergies: 07/21 17:36 Ampicillin; hb 17:36 Azithromycin; hb 17:36 Chocolate; hb 17:36 Lisinopril; hb 17:36 PENICILLINS; hb 17:36 SHELLFISH; hb - PMHx: 17:36 Arthritis; Cerebrovascular accident; Hypertension; Hypothyroidism; Kidney stones; hb - PSHx: 17:36 Right knee replacement; hb - Immunization history:: Adult Immunizations up to date. - Infectious Disease History:: Denies. - Social history:: Smoking status: Patient denies any tobacco usage or history of. ROS: 23:59 Constitutional: As per HPI kb Exam: 23:59 Constitutional: This is a well developed, well nourished patient who is awake, alert, kb and in no acute distress. Head/Face: Normocephalic, atraumatic. ENT: Moist Mucous membranes Cardiovascular: Regular rate Respiratory: Respirations even and unlabored. No increased work of breathing. Talking in full sentences Abdomen/GI: Soft, non-tender. No distention Skin: Warm, dry with normal turgor. Normal color. MS/ Extremity: Pulses equal, no cyanosis. Neurovascular intact. Full, normal range of motion. Neuro: Awake and alert, GCS 15, oriented to person, place, time, and situation. Moves all extremities. Normal gait. Vital Signs: 17:35 BP 119 / 73; Pulse 88; Resp 16; Temp 97.8(TE); Pulse Ox 100% on R/A; Pain 0/10; hb 20:05 BP 126 / 77; Pulse 81; Resp 17 S; Temp 97.4(O); Pulse Ox 100% on R/A; Pain 0/10; lg3 17:35 Pain Scale: Adult hb 20:05 Pain Scale: Adult lg3 MDM: 17:39 Patient medically screened. kb 07/22 00:00 Differential diagnosis: bang catheter malfunction, candidiasis, uti. Data reviewed: kb vital signs, nurses notes. 00:00 Historians other than the Patient: EMS: [facility]. Counseling: I had a detailed kb discussion with the patient and/or guardian regarding the historical points, exam findings, and any diagnostic results supporting the discharge/admit diagnosis, the need for outpatient follow up, a family practitioner, to return to the emergency department if symptoms worsen or persist or if there are any questions or concerns that arise at home. 07/21 18:02 Order name: Abdi; Complete Time: 18:43 kb Administered Medications: 07/21 18:12 Drug: Fluconazole PO 100 mg PO once Route: PO; rs5 18:43 Follow up: Response: No adverse reaction rs5 Disposition: 07/22 10:25 Co-signature as Attending Physician, Janes Higginbotham MD I reviewed the patient's care rt provided by the Advanced Practice Provider and agree with the diagnosis and treatment plan. Disposition Summary: 07/22/23 19:37 Discharge Ordered Notes: Location: Home kb Condition: Stable kb Diagnosis - Mechanical complication of urinary (indwelling) catheter kb Followup: kb - With: Emergency Department - When: As needed - Reason: Worsening of condition Followup: kb - With: Private Physician - When: 2 - 3 days - Reason: Recheck today's complaints, Continuance of care, Re-evaluation by your physician Discharge Instructions: - Discharge Summary Sheet kb - Indwelling Urinary Catheter Care, Adult, Zbhp-zw-Stfw kb Forms: - Medication Reconciliation Form kb - Antibiotic Education kb - Prescription Opioid Use kb - Patient Portal Instructions kb - Leadership Thank You Letter kb Signatures: Jolene Rader FNP-C FNP-Vianey Ellsworth, RN RN Janes Eason MD MD rt Naldo Merritt RN RN rs5
--- NOTE | 2023-07-22 19:38 | ER ---
Nurse's Notes [facility] Name: Young Gates Age: 63 yrs Sex: Female : 1960 Arrival Date: 07/22/2023 Time: 17:22 Bed 16 Private MD: Diagnosis: Mechanical complication of urinary (indwelling) catheter Presentation: 07/21 17:35 Chief complaint: Catheter leaking since this morning. Coronavirus screen: At this time, hb the client does not indicate any symptoms associated with coronavirus-19. Ebola Screen: No symptoms or risks identified at this time. Initial Sepsis Screen: Does the patient meet any 2 criteria? No. Patient's initial sepsis screen is negative. Does the patient have a suspected source of infection? No. Patient's initial sepsis screen is negative. Risk Assessment: Do you want to hurt yourself or someone else? Patient reports no desire to harm self or others. Onset of symptoms was July 22, 2023. 17:35 Method Of Arrival: EMS: [facility] 17:35 Acuity: KJ 4 hb Triage Assessment: 17:38 General: Appears in no apparent distress. Behavior is calm, cooperative. Pain: Denies hb pain. Neuro: Level of Consciousness is awake, alert, obeys commands, Oriented to person, place, time, situation. Cardiovascular: Patient's skin is warm and dry. Respiratory: Respiratory effort is even, unlabored, Respiratory pattern is regular, symmetrical. : Reports catheter leaking. Historical: - Allergies: 17:36 Ampicillin; hb 17:36 Azithromycin; hb 17:36 Chocolate; hb 17:36 Lisinopril; hb 17:36 PENICILLINS; hb 17:36 SHELLFISH; hb - PMHx: 17:36 Arthritis; Cerebrovascular accident; Hypertension; Hypothyroidism; Kidney stones; hb - PSHx: 17:36 Right knee replacement; hb - Immunization history:: Adult Immunizations up to date. - Infectious Disease History:: Denies. - Social history:: Smoking status: Patient denies any tobacco usage or history of. Screenin:40 [facility] ED Fall Risk Assessment (Adult) History of falling in the last 3 months, hb including since admission No falls in past 3 months (0 pts) Confusion or Disorientation No (0 pts) Intoxicated or Sedated No (0 pts) Impaired Gait No (0 pts) Mobility Assist Device Used No (0 pt) Altered Elimination No (0 pt) Score/Fall Risk Level 0 - 2 = Low Risk Oriented to surroundings, Maintained a safe environment, Educated pt \\T\\ family on fall prevention, incl call for assistance when getting out of bed. Abuse screen: Denies threats or abuse. Denies injuries from another. Nutritional screening: No deficits noted. Tuberculosis screening: No symptoms or risk factors identified. Assessment: 17:35 General: Appears in no apparent distress. uncomfortable. rs5 17:35 General: Behavior is calm, cooperative. Pain: Denies pain. Neuro: Level of rs5 Consciousness is awake, alert, obeys commands, Oriented to person, place, time, situation. Cardiovascular: Patient's skin is warm and dry. Rhythm is regular. Respiratory: Airway is patent Respiratory effort is even, unlabored, Respiratory pattern is regular, symmetrical. GI: Abdomen is round non-distended, Abd is soft and non tender X 4 quads. : Bang in place to gravity drainage pt states "urine has been leaking around the cathether lately". EENT: No signs and/or symptoms were reported regarding the EENT system. Derm: Skin is pink, warm \\T\\ dry. Musculoskeletal: Range of motion: limited in all extremities, pt states "I have really bad arthritis and I have trouble moving anything and everything, my aunt takes care of me". 18:22 Reassessment: to bedside with tech, bang removed and new bang inserted, 18ff, 200ml rs5 clear yellow urine noted in urine collection bag, pt tolerated procedure well. 19:28 General: Appears in no apparent distress. comfortable, Behavior is calm, cooperative. lg3 Pain: Denies pain. Neuro: No deficits noted. Tejeda Agitation-Sedation Scale (RASS): 0 - Alert and Calm Level of Consciousness is awake, alert, obeys commands, Oriented to person, place, time, situation. Cardiovascular: No deficits noted. Denies chest pain, shortness of breath, Capillary refill < 3 seconds Clubbing of nail beds is absent JVD is absent Patient's skin is warm and dry. Respiratory: No deficits noted. Airway is patent Respiratory effort is even, unlabored, Respiratory pattern is regular, symmetrical. GI: No deficits noted. No signs and/or symptoms were reported involving the gastrointestinal system. Abdomen is round non-distended, obese, Abd is soft and non tender X 4 quads. : Bang in place to gravity drainage Urine is clear, Denies pain. EENT: No deficits noted. No signs and/or symptoms were reported regarding the EENT system. Derm: No deficits noted. No signs and/or symptoms reported regarding the dermatologic system. Skin is intact, is healthy with good turgor, Skin is dry, Skin is normal, Skin temperature is warm. Musculoskeletal: Circulation, motion, and sensation intact. Range of motion: limited in all extremities. 20:05 Reassessment: Patient appears in no apparent distress at this time. No changes from lg3 previously documented assessment. Patient and/or family updated on plan of care and expected duration. Pain level reassessed. Vital Signs: 17:35 BP 119 / 73; Pulse 88; Resp 16; Temp 97.8(TE); Pulse Ox 100% on R/A; Pain 0/10; hb 20:05 BP 126 / 77; Pulse 81; Resp 17 S; Temp 97.4(O); Pulse Ox 100% on R/A; Pain 0/10; lg3 17:35 Pain Scale: Adult hb 20:05 Pain Scale: Adult lg3 ED Course: 17:34 Patient arrived in ED. hb 17:36 Triage completed. hb 17:37 Arm band placed on. hb 17:39 Jolene Rader FNP-C is PHCP. kb 17:39 Janes Higginbotham MD is Attending Physician. kb 17:42 Patient has correct armband on for positive identification. Bed in low position. Call hb light in reach. Side rails up X2. 17:47 Naldo Merritt, RN is Primary Nurse. rs5 17:47 No provider procedures requiring assistance completed. rs5 19:28 Door closed. Noise minimized. Warm blanket given. Pillow given. lg3 20:05 Patient did not have IV access during this emergency room visit. lg3 Administered Medications: 18:12 Drug: Fluconazole PO 100 mg PO once Route: PO; rs5 18:43 Follow up: Response: No adverse reaction rs5 Medication: 17:48 VIS not applicable for this client. rs5 Outcome: 19:37 Discharge ordered by . kb 20:05 Discharged to home via ambulance, lg3 20:05 Condition: stable 20:05 Discharge instructions given to patient, Instructed on discharge instructions, follow up and referral plans. [facility] Demonstrated understanding of instructions, follow-up care, 20:06 Patient left the ED. lg3 Signatures: Jolene Rader, OIM CONSULTANT-C OIM CONSULTANT-CkVianey Saini, RN RN Nadai Lima RN RN lg3 Naldo Merritt RN RN rs5 Corrections: (The following items were deleted from the chart) 18:42 17:55 General: Appears in no apparent distress. uncomfortable, Behavior is calm, rs5 cooperative, rs5 18:42 17:55 Pain: Denies pain. rs5 rs5 18:42 17:55 Neuro: Level of Consciousness is awake, alert, obeys commands, Oriented to rs5 person, place, time, situation, rs5
[2023-07-22 20:51] VITALS: BP 126/77; TEMP 97.4; O2SAT 100
== END 2023-07-22 20:06 | disposition home or self-care (01) ==
LOC: ER 17:22
DX: T83.098A Other mechanical complication of other urinary catheter, initial encounter (principal)
CPT/HCPCS: 99283

== ENCOUNTER 2023-12-22 02:00 | Emergency (ER) | payer OTHER ==
--- OUTSIDE RECORDS SUMMARY | 2023-12-22 04:24 | XMS REPORT | Continuity of Care Document ---
Author Name Unknown Address [address] [facility] [address] [place] [address] [facility] thconnect Address [address] [facility] [place] [address] Care Team Providers Care Flaker Tender Name Role Phone Sonal Washington Attending Clinician Unavail able Nikolay Bhakta Attending Clinician Unavailable Ofelia KHALIL Attending Clinician Unavailable Radhika, Ugonna N Attending Clinician Unavaila ble Latisha, Na L Attending Clinician Unavailable TERRI_Luna Attending Clinician Unavailab le TERRI_Rachel Attending Clinician Unavaila ble [email or web address]_Kadiyala_S Attending Clinician Unavaila Ian Aleman Attending Clinician Unavaila ble Tre Admitting Clinician Unavailab le TERRI_Rachel Admitting Clinician Unavaila ble [email or web address]_Kadiyala_S Admitting Clinician Unavaila Ian Aleman Admitting Clinician Unavaila ble David Garridoonna N Admitting Clinician Unavaila ble Payers Payer Name Policy Type Policy Number Effective Date Expirati on Date Source [facility] Dual Complete (HMO-POS D-SNP) [id number] 2023 00:00:00 2024 00:00:00 [facility] - DUAL ELIGIBLE (MEDICARE REPLACEMENT/ADVAN TAGE - HMO) [id number] 2022 00:00[place]PLAC[place] - HMO) [id number] 2018 00:00:00 [facility] - DUAL COMPLETE - DUAL ELIGIBLE - SNP (MEDICARE-MEDICAI D REPLACEMENT HMO) [id number] [facility] - [facility] - DUAL COMPLETE FOCUS (MEDICARE REPLACEMENT HMO) [id number] MEDICAID MC [id number] 2012 00:00:00 [facility] MEDICARE NOVITAS MB [id number] 2010 00:00:00 [facility] [employer] (Medicaid) [id number] 2018 00:00:00 [facility] Problems Condition Name Condition Details Condition Category [...] Distal End of Right Femur Problem Active 2022-02- 00:00: 00 [facility] Post traumatic osteoarthr itis Post Traumatic Osteoarthr itis Problem Active 2021-02- 00:00: 00 [facility] Osteoarthr itis of knee Osteoarthr itis of Knee Problem Active 2013-02 00:00: 00 [facility] [id number] Functional quadripleg ia Problem [facility] [id number] Microcytic anemia Problem [facility] [id number] Pressure injury of deep tissue of sacral region Problem Common [facility] [id number] Chronic ulcer of lower extremity, right, with unspecifie d severity Problem Common [facility] [id number] MRSA infection Problem Common [facility] [id number] S/P PICC central line placement Problem [facility] Encounter for Bang catheter replacemen t Encounter for Bang catheter replacemen t Problem Common [facility] [id number] Incontinen ce of feces, unspecifie d fecal incontinen ce type Problem [facility] [id number] Urinary incontinen ce, unspecifie d type Problem [facility] [id number] Sacral osteomyeli tis Problem [facility] [id number] Loss of appetite Problem [facility] [id number] Seasonal allergies Problem [facility] [id number] Current mild episode of major depressive disorder without prior episode Problem [facility] Overweight Overweight Problem Co mmon [facility] [id number] Seasonal allergic rhinitis due to pollen Problem [facility] [id number] Other closed fracture of proximal end of right tibia, initial encounter Problem [facility] [id number] Other closed fracture of proximal end of right fibula, initial encounter Problem [facility] [id number] BMI 33.0-33.9, adult Problem [facility] General weakness General weakness Problem [facility] Pain in limb Pain in limb Problem [facility] 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 Problem [facility] Edema Edema leg Problem [facility] [id number] Other closed fracture of distal end of right femur, initial encounter Problem [facility] [id number] Other obesity due to excess calories Problem [facility] Peripheral neuropathy Peripheral neuropathy Problem [facility] Hypertensi on HTN (hypertens ion) Problem Common [facility] Gastroesop hageal reflux disease GERD (gastroeso phageal reflux disease) Problem [facility] Anemia Anemia Problem [facility] Hypothyroi dism Hypothyroi dism Problem [facility] Rheumatoid arthritis Rheumatoid arthritis Problem [facility] Hyperlipid emia Hyperlipid emia Problem [facility] [id number] +5th digit eff 11/27/19*Ga stroesopha geal reflux disease with esophagiti s Problem [facility] [id number] Neuropathy Problem Com mon [facility] [id number] Wheelchair dependence Problem [facility] Knee pain Knee pain Problem Comm on [facility] [id number] Chronic seasonal allergic rhinitis Problem [facility] Dependence on wheelchair Uses wheelchair Problem [facility] Acquired genu valgum Valgus deformity, not elsewhere classified , right knee Problem [facility] [id number] Influenza vaccinatio n administer ed at current visit Problem [facility] [id number] Pressure injury of sacral region, stage 4 Problem [facility] [id number] Leukocytos is, unspecifie d type Problem [facility] Allergies, Adverse Reactions, Alerts Allergy Name Allergy Type Status Severity Reaction(s) Onset Date Inactive Date Treating Clinician Comments Source Penicill ins DA Active SV BREAKOUT IN HIVES UNDER THE SKIN 2022-02 00:00: 00 [facility] lisinopr il DA Active SV CAUSE ME TO HAVE KIDNEY FAILURE 2022-02 00:00: 00 [facility] iodine DA Active SV THROAT SWELLING UP, DIFFICULTY BREATHING 2022-02 0 00:00: 00 [facility] azithrom ycin DA Active SV HIVES 2022-02 00:00: 00 [facility] shellfis h derived FA Active SV THROAT SWELLING UP, DIFFICULTY BREATHING 2022-02 00:00: 00 [facility] shrimp FA Active SV THROAT SWELLS, DIFFICULTY BREATHING 2022-02 00:00: 00 [facility] crab FA Active SV THROAT SWELLS, DIFFICULTY BREATHING 2022-02 0-23 00:00: 00 [facility] azithrom ycin DA Active SV HIVES 2022-02 0-13 00:00: 00 [facility] shrimp FA Active SV THROAT SWELLS, DIFFICULTY BREATHING 8-17 00:00: 00 [facility] crab FA Active SV THROAT SWELLS, DIFFICULTY BREATHING 8-17 00:00: 00 [facility] Penicill ins DA Active SV BREAKOUT IN HIVES UNDER THE SKIN 8 00:00: 00 [facility] lisinopr il DA Active SV CAUSE ME TO HAVE KIDNEY FAILURE 10-12 00:00: 00 [facility] iodine DA Active SV THROAT SWELLING UP, DIFFICULTY BREATHING 8 00:00: 00 [facility] shellfis h derived FA Active SV THROAT SWELLING UP, DIFFICULTY BREATHING 10-12 00:00: 00 [facility] LISINOPR IL Allergy to substanc e Active 2013-02 007 00:00: 00 [facility] PENICILL IN Allergy to substanc e Active 2013-02 007 00:00: 00 [facility] [id number] Drug allergy Active Unknown [facility] [id number] 85 Drug allergy Active Unknown [facility] Amoxicil edwin Allergy to substanc e Active [...] Quantity Comments Source History of Tobacco Use [facility] Sex Assigned At [facility] Smoking Status Start Date Stop Date Source Never Smoker [facility] Medications Ordered Medication Name Filled Medication Name Start Date Stop Date Current Medication? Ordering Clinician Indication Dosage Frequency Signature (SIG) Comments Components Source Imodium A-D 2 MG Imodium A-D 2 MG 2023-02 00:00: 00 No 1{table t_as_ne eded} QID Imodium A-D 2 MG Levothyroxi ne Sodium 125 MCG Levothyroxi ne Sodium 125 MCG 09-16 00:00: 00 No QD Levothyrox ine Sodium 125 MCG Klor-Con 20 MEQ Klor-Con 20 MEQ 09-11 00:00: 00 No 1{packe t_with_ food} BID Klor-Con 20 MEQ Lactinex - Lactinex - 08-30 00:00: 00 No Lactinex - Folic Acid 1 MG Folic Acid 1 MG 08-09 00:00: 00 No 1{table t} QD Folic Acid 1 MG amlodipine 2.5 mg tablet amlodipine 2.5 mg [...] WEEK [facility] Montelukast Sodium 10 Montelukast Sodium 10 No [...] No 1{appli cation} QD Santyl 250 UNIT/GM Axel - Axel - No Axel - amLODIPine Besylate 5 MG amLODIPine Besylate 5 MG No amLODIPine Besylate 5 MG Tylenol 325 MG Tylenol 325 MG No 1{table t_as_ne eded} 6xD Tylenol 325 MG Ciprofloxac in HCl 500 MG Ciprofloxac in HCl 500 MG No Ciprofloxa dena HCl 500 MG Doxycycline Hyclate 100 MG Doxycycline Hyclate 100 MG No Doxycyclin e Hyclate 100 MG cloNIDine HCl 0.2 MG cloNIDine HCl 0.2 MG No QD cloNIDine HCl 0.2 MG Levothyroxi ne Sodium 100 MCG Levothyroxi ne Sodium 100 MCG No QD Levothyrox ine Sodium 100 MCG Norvasc 5 MG Norvasc 5 MG No 1{table t} QD Norvasc 5 MG Mirtazapine 30 MG Mirtazapine 30 MG No 1{table t_at_be dtime} QD Mirtazapin e 30 MG Immunizations Ordered Immunization Name Filled Immunization Name Date Status Comments Source Flucelvax - single dose syringe Flucelvax - single dose syringe 2022-01-31 15:24:00 Completed [facility] Flucelvax - single dose syringe Flucelvax - single dose syringe 2022-01-31 15:24:00 Completed [facility] Moderna COVID-19 Vaccine Moderna COVID-19 Vaccine 2020-09-03 11:38:00 Completed [facility] Moderna COVID-19 Vaccine Moderna COVID-19 Vaccine 2020-09-03 11:38:00 Completed [facility] Moderna COVID-19 Vaccine Moderna COVID-19 Vaccine 2020-09-03 11:38:00 Completed [facility] Moderna COVID-19 Vaccine Moderna COVID-19 Vaccine 2020-09-03 11:38:00 Completed [facility] Moderna COVID-19 Vaccine Moderna COVID-19 Vaccine 2020-09-03 11:38:00 Completed [facility] Moderna COVID-19 Vaccine Moderna COVID-19 Vaccine 2020-09-03 11:38:00 Completed [facility] Moderna COVID-19 Vaccine Moderna COVID-19 Vaccine 2020-09-03 11:38:00 Completed [facility] Moderna COVID-19 Vaccine Moderna COVID-19 Vaccine 2020-09-03 11:38:00 Completed [facility] Afluria Afluria 2020-01-29 10:05:00 Completed [facility] Afluria Afluria 2020-01-29 10:05:00 Completed [facility] Afluria Afluria 2020-01-29 10:05:00 Completed [facility] Afluria Afluria 2020-01-29 10:05:00 Completed [facility] Afluria Afluria 2020-01-29 10:05:00 Completed [facility] Afluria Afluria 2020-01-29 10:05:00 Completed [facility] Afluria Afluria 2020-01-29 10:05:00 Completed [facility] Afluria Afluria 2020-01-29 10:05:00 Completed [facility] FluAD FluAD 2018-11-08 09:31:00 Completed [facility] FluAD FluAD 2018-11-08 09:31:00 Completed [facility] FluAD FluAD 2018-11-08 09:31:00 Completed [facility] FluAD FluAD 2018-11-08 09:31:00 Completed [facility] FluAD FluAD 2018-11-08 09:31:00 Completed [facility] FluAD FluAD 2018-11-08 09:31:00 Completed [facility] FluAD FluAD 2018-11-08 09:31:00 Completed [facility] FluAD FluAD 2018-11-08 09:31:00 Completed [facility] FluAD FluAD 2018-11-08 00:00:00 Completed [facility] FLUZONE HIGH DOSE OVER 65 FLUZONE HIGH DOSE OVER 65 2017-10-31 12:06:00 Completed [facility] FLUZONE HIGH DOSE OVER 65 FLUZONE HIGH DOSE OVER 65 2017-10-31 12:06:00 Completed [facility] FLUZONE HIGH DOSE OVER 65 FLUZONE HIGH DOSE OVER 65 2017-10-31 12:06:00 Completed [facility] FLUZONE HIGH DOSE OVER 65 FLUZONE HIGH DOSE OVER 65 2017-10-31 12:06:00 Completed [facility] FLUZONE HIGH DOSE OVER 65 FLUZONE HIGH DOSE OVER 65 2017-10-31 12:06:00 Completed [facility] FLUZONE HIGH DOSE OVER 65 FLUZONE HIGH DOSE OVER 65 2017-10-31 12:06:00 Completed [facility] FLUZONE HIGH DOSE OVER 65 FLUZONE HIGH DOSE OVER 65 2017-10-31 12:06:00 Completed [facility] FLUZONE HIGH DOSE OVER 65 FLUZONE HIGH DOSE OVER 65 2017-10-31 12:06:00 Completed [facility] FLUZONE HIGH DOSE OVER 65 FLUZONE HIGH DOSE OVER 65 Unknown Completed [facility] Prevnar 20 (PCV20) Prevnar 20 (PCV20) Unknown Completed [facility] Moderna COVID-19 Vaccine Moderna COVID-19 Vaccine Unknown Completed [facility] Fluarix (IIV4) - SDS - 0.5mL Fluarix (IIV4) - SDS - 0.5mL Unknown Completed [facility] FluAD FluAD Unknown Completed [facility] Afluria Afluria Unknown Completed [facility] Flucelvax (ccIIV4) - SDS - 0.5mL Flucelvax (ccIIV4) - SDS - 0.5mL Unknown Completed [facility] FLUZONE HIGH DOSE OVER 65 FLUZONE HIGH DOSE OVER 65 Unknown Completed [facility] Prevnar 20 (PCV20) Prevnar 20 (PCV20) Unknown Completed [facility] Moderna COVID-19 Vaccine Moderna COVID-19 Vaccine Unknown Completed [facility] Fluarix (IIV4) - SDS - 0.5mL Fluarix (IIV4) - SDS - 0.5mL Unknown Completed [facility] FluAD FluAD Unknown Completed [facility] Afluria Afluria Unknown Completed [facility] Flucelvax (ccIIV4) - SDS - 0.5mL Flucelvax (ccIIV4) - SDS - 0.5mL Unknown Completed [facility] FLUZONE HIGH DOSE OVER 65 FLUZONE HIGH DOSE OVER 65 Unknown Completed [facility] Prevnar 20 (PCV20) Prevnar 20 (PCV20) Unknown Completed [facility] Moderna COVID-19 Vaccine Moderna COVID-19 Vaccine Unknown Completed [facility] Fluarix (IIV4) - SDS - 0.5mL Fluarix (IIV4) - SDS - 0.5mL Unknown Completed [facility] FluAD FluAD Unknown Completed [facility] Afluria Afluria Unknown Completed [facility] Flucelvax (ccIIV4) - SDS - 0.5mL Flucelvax (ccIIV4) - SDS - 0.5mL Unknown Completed [facility] FLUZONE HIGH DOSE OVER 65 FLUZONE HIGH DOSE OVER 65 Unknown Completed [facility] Prevnar 20 (PCV20) Prevnar 20 (PCV20) Unknown Completed [facility] Moderna COVID-19 Vaccine Moderna COVID-19 Vaccine Unknown Completed [facility] Fluarix (IIV4) - SDS - 0.5mL Fluarix (IIV4) - SDS - 0.5mL Unknown Completed [facility] FluAD FluAD Unknown Completed [facility] Afluria Afluria Unknown Completed [facility] Flucelvax (ccIIV4) - SDS - 0.5mL Flucelvax (ccIIV4) - SDS - 0.5mL Unknown Completed [facility] FLUZONE HIGH DOSE OVER 65 FLUZONE HIGH DOSE OVER 65 Unknown Completed [facility] Prevnar 20 (PCV20) Prevnar 20 (PCV20) Unknown Completed [facility] Moderna COVID-19 Vaccine Moderna COVID-19 Vaccine Unknown Completed [facility] Fluarix (IIV4) - SDS - 0.5mL Fluarix (IIV4) - SDS - 0.5mL Unknown Completed [facility] FluAD FluAD Unknown Completed [facility] Afluria Afluria Unknown Completed [facility] Flucelvax (ccIIV4) - SDS - 0.5mL Flucelvax (ccIIV4) - SDS - 0.5mL Unknown Completed [facility] FLUZONE HIGH DOSE OVER 65 FLUZONE HIGH DOSE OVER 65 Unknown Completed [facility] Prevnar 20 (PCV20) Prevnar 20 (PCV20) Unknown Completed [facility] Moderna COVID-19 Vaccine Moderna COVID-19 Vaccine Unknown Completed [facility] Fluarix (IIV4) - SDS - 0.5mL Fluarix (IIV4) - SDS - 0.5mL Unknown Completed [facility] FluAD FluAD Unknown Completed [facility] Afluria Afluria Unknown Completed [facility] Flucelvax (ccIIV4) - SDS - 0.5mL Flucelvax (ccIIV4) - SDS - 0.5mL Unknown Completed [facility] FLUZONE HIGH DOSE OVER 65 FLUZONE HIGH DOSE OVER 65 Unknown Completed [facility] Prevnar 20 (PCV20) Prevnar 20 (PCV20) Unknown Completed [facility] Moderna COVID-19 Vaccine Moderna COVID-19 Vaccine Unknown Completed [facility] Fluarix (IIV4) - SDS - 0.5mL Fluarix (IIV4) - SDS - 0.5mL Unknown Completed [facility] FluAD FluAD Unknown Completed [facility] Afluria Afluria Unknown Completed [facility] Flucelvax (ccIIV4) - SDS - 0.5mL Flucelvax (ccIIV4) - SDS - 0.5mL Unknown Completed [facility] FLUZONE HIGH DOSE OVER 65 FLUZONE HIGH DOSE OVER 65 Unknown Completed [facility] Prevnar 20 (PCV20) Prevnar 20 (PCV20) Unknown Completed [facility] Moderna COVID-19 Vaccine Moderna COVID-19 Vaccine Unknown Completed [facility] Fluarix (IIV4) - SDS - 0.5mL Fluarix (IIV4) - SDS - 0.5mL Unknown Completed [facility] FluAD FluAD Unknown Completed [facility] Afluria Afluria Unknown Completed [facility] Flucelvax (ccIIV4) - SDS - 0.5mL Flucelvax (ccIIV4) - SDS - 0.5mL Unknown Completed [facility] FLUZONE HIGH DOSE OVER 65 FLUZONE HIGH DOSE OVER 65 Unknown Completed [facility] Prevnar 20 (PCV20) Prevnar 20 (PCV20) [facility]-19 Vaccine Unknown Completed [facility] Fluarix Fluarix Unknown Completed [facility] FluAD FluAD Unknown Completed [facility] Afluria Afluria Unknown Completed [facility] Flucelvax - single dose syringe Flucelvax - single dose syringe Unknown Completed [facility] FLUZONE HIGH DOSE OVER 65 FLUZONE HIGH DOSE OVER 65 Unknown Completed [facility] Prevnar 20 (PCV20) Prevnar 20 (PCV20) Unknown Completed [facility] Moderna COVID-19 Vaccine Moderna COVID-19 Vaccine Unknown Completed [facility] Fluarix Fluarix Unknown Completed [facility] FluAD FluAD Unknown Completed [facility] Afluria Afluria Unknown Completed [facility] Flucelvax - single dose syringe Flucelvax - single dose syringe Unknown Completed [facility] FLUZONE HIGH DOSE OVER 65 FLUZONE HIGH DOSE OVER 65 Unknown Completed [facility] Prevnar 20 (PCV20) Prevnar 20 (PCV20) Unknown Completed [facility] Moderna COVID-19 Vaccine Moderna COVID-19 Vaccine Unknown Completed [facility] Fluarix Fluarix Unknown Completed [facility] FluAD FluAD Unknown Completed [facility] Afluria Afluria Unknown Completed [facility] Flucelvax - single dose syringe Flucelvax - single dose syringe Unknown Completed [facility] FLUZONE HIGH DOSE OVER 65 FLUZONE HIGH DOSE OVER 65 Unknown Completed [facility] Prevnar 20 (PCV20) Prevnar 20 (PCV20) [facility]-19 Vaccine Unknown Completed [facility] Fluarix (IIV4) - SDS - 0.5mL Fluarix (IIV4) - SDS - 0.5mL Unknown Completed [facility] FluAD FluAD Unknown Completed [facility] Afluria Afluria Unknown Completed [facility] Flucelvax (ccIIV4) - SDS - 0.5mL Flucelvax (ccIIV4) - SDS - 0.5mL Unknown Completed [facility] FLUZONE HIGH DOSE OVER 65 FLUZONE HIGH DOSE OVER 65 Unknown Completed [facility] Prevnar 20 (PCV20) Prevnar 20 (PCV20) Unknown Completed [facility] Moderna COVID-19 Vaccine Moderna COVID-19 Vaccine Unknown Completed [facility] Fluarix (IIV4) - SDS - 0.5mL Fluarix (IIV4) - SDS - 0.5mL Unknown Completed [facility] FluAD FluAD Unknown Completed [facility] Afluria Afluria Unknown Completed [facility] Flucelvax (ccIIV4) - SDS - 0.5mL Flucelvax (ccIIV4) - SDS - 0.5mL Unknown Completed [facility] FLUZONE HIGH DOSE OVER 65 FLUZONE HIGH DOSE OVER 65 Unknown Completed [facility] Prevnar 20 (PCV20) Prevnar 20 (PCV20) Unknown Completed [facility] Moderna COVID-19 Vaccine Moderna COVID-19 Vaccine Unknown Completed [facility] Fluarix (IIV4) - SDS - 0.5mL Fluarix (IIV4) - SDS - 0.5mL Unknown Completed [facility] FluAD FluAD Unknown Completed [facility] Afluria Afluria Unknown Completed [facility] Flucelvax (ccIIV4) - SDS - 0.5mL Flucelvax (ccIIV4) - SDS - 0.5mL Unknown Completed [facility] FLUZONE HIGH DOSE OVER 65 FLUZONE HIGH DOSE OVER 65 Unknown Completed [facility] Prevnar 20 (PCV20) Prevnar 20 (PCV20) Unknown Completed [facility] Moderna COVID-19 Vaccine Moderna COVID-19 Vaccine Unknown Completed [facility] Fluarix (IIV4) - SDS - 0.5mL Fluarix (IIV4) - SDS - 0.5mL Unknown Completed [facility] FluAD FluAD Unknown Completed [facility] Afluria Afluria Unknown Completed [facility] Flucelvax (ccIIV4) - SDS - 0.5mL Flucelvax (ccIIV4) - SDS - 0.5mL Unknown Completed [facility] FLUZONE HIGH DOSE OVER 65 FLUZONE HIGH DOSE OVER 65 Unknown Completed [facility] Prevnar 20 (PCV20) Prevnar 20 (PCV20) Unknown Completed [facility] Moderna COVID-19 Vaccine Moderna COVID-19 Vaccine Unknown Completed [facility] Fluarix (IIV4) - SDS - 0.5mL Fluarix (IIV4) - SDS - 0.5mL Unknown Completed [facility] FluAD FluAD Unknown Completed [facility] Afluria Afluria Unknown Completed [facility] Flucelvax (ccIIV4) - SDS - 0.5mL Flucelvax (ccIIV4) - SDS - 0.5mL Unknown Completed [facility] FLUZONE HIGH DOSE OVER 65 FLUZONE HIGH DOSE OVER 65 Unknown Completed [facility] Prevnar 20 (PCV20) Prevnar 20 (PCV20) Unknown Completed [facility] Moderna COVID-19 Vaccine Moderna COVID-19 Vaccine Unknown Completed [facility] Fluarix (IIV4) - SDS - 0.5mL Fluarix (IIV4) - SDS - 0.5mL Unknown Completed [facility] FluAD FluAD Unknown Completed [facility] Afluria Afluria Unknown Completed [facility] Flucelvax (ccIIV4) - SDS - 0.5mL Flucelvax (ccIIV4) - SDS - 0.5mL Unknown Completed [facility] FLUZONE HIGH DOSE OVER 65 FLUZONE HIGH DOSE OVER 65 Unknown Completed [facility] Prevnar 20 (PCV20) Prevnar 20 (PCV20) Unknown Completed [facility] Moderna COVID-19 Vaccine Moderna COVID-19 Vaccine Unknown Completed [facility] Fluarix (IIV4) - SDS - 0.5mL Fluarix (IIV4) - SDS - 0.5mL Unknown Completed [facility] FluAD FluAD Unknown Completed [facility] Afluria Afluria Unknown Completed [facility] Flucelvax (ccIIV4) - SDS - 0.5mL Flucelvax (ccIIV4) - SDS - 0.5mL Unknown Completed [facility] FLUZONE HIGH DOSE OVER 65 FLUZONE HIGH DOSE OVER 65 Unknown Completed [facility] Prevnar 20 (PCV20) Prevnar 20 (PCV20) Unknown Completed [facility] Moderna COVID-19 Vaccine Moderna COVID-19 Vaccine Unknown Completed [facility] Fluarix (IIV4) - SDS - 0.5mL Fluarix (IIV4) - SDS - 0.5mL Unknown Completed [facility] FluAD FluAD Unknown Completed [facility] Afluria Afluria Unknown Completed [facility] Flucelvax (ccIIV4) - SDS - 0.5mL Flucelvax (ccIIV4) - SDS - 0.5mL Unknown Completed [facility] FLUZONE HIGH DOSE OVER 65 FLUZONE HIGH DOSE OVER 65 Unknown Completed [facility] Prevnar 20 (PCV20) Prevnar 20 (PCV20) Unknown Completed [facility] Moderna COVID-19 Vaccine Moderna COVID-19 Vaccine Unknown Completed [facility] Fluarix (IIV4) - SDS - 0.5mL Fluarix (IIV4) - SDS - 0.5mL Unknown Completed [facility] FluAD FluAD Unknown Completed [facility] Afluria Afluria Unknown Completed [facility] Flucelvax (ccIIV4) - SDS - 0.5mL Flucelvax (ccIIV4) - SDS - 0.5mL Unknown Completed [facility] FLUZONE HIGH DOSE OVER 65 FLUZONE HIGH DOSE OVER 65 Unknown Completed [facility] Prevnar 20 (PCV20) Prevnar 20 (PCV20) Unknown Completed [facility] Moderna COVID-19 Vaccine Moderna COVID-19 Vaccine Unknown Completed [facility] Fluarix (IIV4) - SDS - 0.5mL Fluarix (IIV4) - SDS - 0.5mL Unknown Completed [facility] FluAD FluAD Unknown Completed [facility] Afluria Afluria Unknown Completed [facility] Flucelvax (ccIIV4) - SDS - 0.5mL Flucelvax (ccIIV4) - SDS - 0.5mL Unknown Completed [facility] FLUZONE HIGH DOSE OVER 65 FLUZONE HIGH DOSE OVER 65 Unknown Completed [facility] Prevnar 20 (PCV20) Prevnar 20 (PCV20) Unknown Completed [facility] Moderna COVID-19 Vaccine Moderna COVID-19 Vaccine Unknown Completed [facility] Fluarix (IIV4) - SDS - 0.5mL Fluarix (IIV4) - SDS - 0.5mL Unknown Completed [facility] FluAD FluAD Unknown Completed [facility] Afluria Afluria Unknown Completed [facility] Flucelvax (ccIIV4) - SDS - 0.5mL Flucelvax (ccIIV4) - SDS - 0.5mL Unknown Completed [facility] FLUZONE HIGH DOSE OVER 65 FLUZONE HIGH DOSE OVER 65 Unknown Completed [facility] Prevnar 20 (PCV20) Prevnar 20 (PCV20) Unknown Completed [facility] Moderna COVID-19 Vaccine Moderna COVID-19 Vaccine Unknown Completed [facility] Fluarix (IIV4) - SDS - 0.5mL Fluarix (IIV4) - SDS - 0.5mL Unknown Completed [facility] FluAD FluAD Unknown Completed [facility] Afluria Afluria Unknown Completed [facility] Flucelvax (ccIIV4) - SDS - 0.5mL Flucelvax (ccIIV4) - SDS - 0.5mL Unknown Completed [facility] FLUZONE HIGH DOSE OVER 65 FLUZONE HIGH DOSE OVER 65 Unknown Completed [facility] Prevnar 20 (PCV20) Prevnar 20 (PCV20) Unknown Completed [facility] Moderna COVID-19 Vaccine Moderna COVID-19 Vaccine Unknown Completed [facility] Fluarix (IIV4) - SDS - 0.5mL Fluarix (IIV4) - SDS - 0.5mL Unknown Completed [facility] FluAD FluAD Unknown Completed [facility] Afluria Afluria Unknown Completed [facility] Flucelvax (ccIIV4) - SDS - 0.5mL Flucelvax (ccIIV4) - SDS - 0.5mL Unknown Completed [facility] FLUZONE HIGH DOSE OVER 65 FLUZONE HIGH DOSE OVER 65 Unknown Completed [facility] Prevnar 20 (PCV20) Prevnar 20 (PCV20) Unknown Completed [facility] Moderna COVID-19 Vaccine Moderna COVID-19 Vaccine Unknown Completed [facility] Fluarix (IIV4) - SDS - 0.5mL Fluarix (IIV4) - SDS - 0.5mL Unknown Completed [facility] FluAD FluAD Unknown Completed [facility] Afluria Afluria Unknown Completed [facility] Flucelvax (ccIIV4) - SDS - 0.5mL Flucelvax (ccIIV4) - SDS - 0.5mL Unknown Completed [facility] FLUZONE HIGH DOSE OVER 65 FLUZONE HIGH DOSE OVER 65 Unknown Completed [facility] Prevnar 20 (PCV20) Prevnar 20 (PCV20) Unknown Completed [facility] Moderna COVID-19 Vaccine Moderna COVID-19 Vaccine Unknown Completed [facility] Fluarix (IIV4) - SDS - 0.5mL Fluarix (IIV4) - SDS - 0.5mL Unknown Completed [facility] FluAD FluAD Unknown Completed [facility] Afluria Afluria Unknown Completed [facility] Flucelvax (ccIIV4) - SDS - 0.5mL Flucelvax (ccIIV4) - SDS - 0.5mL Unknown Completed [facility] FLUZONE HIGH DOSE OVER 65 FLUZONE HIGH DOSE OVER 65 Unknown Completed [facility] Prevnar 20 (PCV20) Prevnar 20 (PCV20) Unknown Completed [facility] Moderna COVID-19 Vaccine Moderna COVID-19 Vaccine Unknown Completed [facility] Fluarix (IIV4) - SDS - 0.5mL Fluarix (IIV4) - SDS - 0.5mL Unknown Completed [facility] FluAD FluAD Unknown Completed [facility] Afluria Afluria Unknown Completed [facility] Flucelvax (ccIIV4) - SDS - 0.5mL Flucelvax (ccIIV4) - SDS - 0.5mL Unknown Completed [facility] FLUZONE HIGH DOSE OVER 65 FLUZONE HIGH DOSE OVER 65 Unknown Completed [facility] Prevnar 20 (PCV20) Prevnar 20 (PCV20) Unknown Completed [facility] Moderna COVID-19 Vaccine Moderna COVID-19 Vaccine Unknown Completed [facility] Fluarix (IIV4) - SDS - 0.5mL Fluarix (IIV4) - SDS - 0.5mL Unknown Completed [facility] FluAD FluAD Unknown Completed [facility] Afluria Afluria Unknown Completed [facility] Flucelvax (ccIIV4) - SDS - 0.5mL Flucelvax (ccIIV4) - SDS - 0.5mL Unknown Completed [facility] FLUZONE HIGH DOSE OVER 65 FLUZONE HIGH DOSE OVER 65 Unknown Completed [facility] Prevnar 20 (PCV20) Prevnar 20 (PCV20) Unknown Completed [facility] Moderna COVID-19 Vaccine Moderna COVID-19 Vaccine Unknown Completed [facility] Fluarix (IIV4) - SDS - 0.5mL Fluarix (IIV4) - SDS - 0.5mL Unknown Completed [facility] FluAD FluAD Unknown Completed [facility] Afluria Afluria Unknown Completed [facility] Flucelvax (ccIIV4) - SDS - 0.5mL Flucelvax (ccIIV4) - SDS - 0.5mL Unknown Completed [facility] FLUZONE HIGH DOSE OVER 65 FLUZONE HIGH DOSE OVER 65 Unknown Completed [facility] Prevnar 20 (PCV20) Prevnar 20 (PCV20) Unknown Completed [facility] Moderna COVID-19 Vaccine Moderna COVID-19 Vaccine Unknown Completed [facility] Fluarix (IIV4) - SDS - 0.5mL Fluarix (IIV4) - SDS - 0.5mL Unknown Completed [facility] FluAD FluAD Unknown Completed [facility] Afluria Afluria Unknown Completed [facility] Flucelvax (ccIIV4) - SDS - 0.5mL Flucelvax (ccIIV4) - SDS - 0.5mL Unknown Completed [facility] FLUZONE HIGH DOSE OVER 65 FLUZONE HIGH DOSE OVER 65 Unknown Completed [facility] Prevnar 20 (PCV20) Prevnar 20 (PCV20) Unknown Completed [facility] Moderna COVID-19 Vaccine Moderna COVID-19 Vaccine Unknown Completed [facility] Fluarix (IIV4) - SDS - 0.5mL Fluarix (IIV4) - SDS - 0.5mL Unknown Completed [facility] FluAD FluAD Unknown Completed [facility] Afluria Afluria Unknown Completed [facility] Flucelvax (ccIIV4) - SDS - 0.5mL Flucelvax (ccIIV4) - SDS - 0.5mL Unknown Completed [facility] FLUZONE HIGH DOSE OVER 65 FLUZONE HIGH DOSE OVER 65 Unknown Completed [facility] Prevnar 20 (PCV20) Prevnar 20 (PCV20) Unknown Completed [facility] Moderna COVID-19 Vaccine Moderna COVID-19 Vaccine Unknown Completed [facility] Fluarix (IIV4) - SDS - 0.5mL Fluarix (IIV4) - SDS - 0.5mL Unknown Completed [facility] FluAD FluAD Unknown Completed [facility] Afluria Afluria Unknown Completed [facility] Flucelvax (ccIIV4) - SDS - 0.5mL Flucelvax (ccIIV4) - SDS - 0.5mL Unknown Completed [facility] FLUZONE HIGH DOSE OVER 65 FLUZONE HIGH DOSE OVER 65 Unknown Completed [facility] Prevnar 20 (PCV20) Prevnar 20 (PCV20) Unknown Completed [facility] Moderna COVID-19 Vaccine Moderna COVID-19 Vaccine Unknown Completed [facility] Fluarix (IIV4) - SDS - 0.5mL Fluarix (IIV4) - SDS - 0.5mL Unknown Completed [facility] FluAD FluAD Unknown Completed [facility] Afluria Afluria Unknown Completed [facility] Flucelvax (ccIIV4) - SDS - 0.5mL Flucelvax (ccIIV4) - SDS - 0.5mL Unknown Completed [facility] FLUZONE HIGH DOSE OVER 65 FLUZONE HIGH DOSE OVER 65 Unknown Completed [facility] Prevnar 20 (PCV20) Prevnar 20 (PCV20) Unknown Completed [facility] Moderna COVID-19 Vaccine Moderna COVID-19 Vaccine Unknown Completed [facility] Fluarix (IIV4) - SDS - 0.5mL Fluarix (IIV4) - SDS - 0.5mL Unknown Completed [facility] FluAD FluAD Unknown Completed [facility] Afluria Afluria Unknown Completed [facility] Flucelvax (ccIIV4) - SDS - 0.5mL Flucelvax (ccIIV4) - SDS - 0.5mL Unknown Completed [facility] FLUZONE HIGH DOSE OVER 65 FLUZONE HIGH DOSE OVER 65 Unknown Completed [facility] Prevnar 20 (PCV20) Prevnar 20 (PCV20) Unknown Completed [facility] Moderna COVID-19 Vaccine Moderna COVID-19 Vaccine Unknown Completed [facility] Fluarix (IIV4) - SDS - 0.5mL Fluarix (IIV4) - SDS - 0.5mL Unknown Completed [facility] FluAD FluAD Unknown Completed [facility] Afluria Afluria Unknown Completed [facility] Flucelvax (ccIIV4) - SDS - 0.5mL Flucelvax (ccIIV4) - SDS - 0.5mL Unknown Completed [facility] FLUZONE HIGH DOSE OVER 65 FLUZONE HIGH DOSE OVER 65 Unknown Completed [facility] Prevnar 20 (PCV20) Prevnar 20 (PCV20) Unknown Completed [facility] Moderna COVID-19 Vaccine Moderna COVID-19 Vaccine Unknown Completed [facility] Fluarix (IIV4) - SDS - 0.5mL Fluarix (IIV4) - SDS - 0.5mL Unknown Completed [facility] FluAD FluAD Unknown Completed [facility] Afluria Afluria Unknown Completed [facility] Flucelvax (ccIIV4) - SDS - 0.5mL Flucelvax (ccIIV4) - SDS - 0.5mL Unknown Completed [facility] FLUZONE HIGH DOSE OVER 65 FLUZONE HIGH DOSE OVER 65 Unknown Completed [facility] Prevnar 20 (PCV20) Prevnar 20 (PCV20) Unknown Completed [facility] Moderna COVID-19 Vaccine Moderna COVID-19 Vaccine Unknown Completed [facility] Fluarix (IIV4) - SDS - 0.5mL Fluarix (IIV4) - SDS - 0.5mL Unknown Completed [facility] FluAD FluAD Unknown Completed [facility] Afluria Afluria Unknown Completed [facility] Flucelvax (ccIIV4) - SDS - 0.5mL Flucelvax (ccIIV4) - SDS - 0.5mL Unknown Completed [facility] FLUZONE HIGH DOSE OVER 65 FLUZONE HIGH DOSE OVER 65 Unknown Completed [facility] Prevnar 20 (PCV20) Prevnar 20 (PCV20) Unknown Completed [facility] Moderna COVID-19 Vaccine Moderna COVID-19 Vaccine Unknown Completed [facility] Fluarix (IIV4) - SDS - 0.5mL Fluarix (IIV4) - SDS - 0.5mL Unknown Completed [facility] FluAD FluAD Unknown Completed [facility] Afluria Afluria Unknown Completed [facility] Flucelvax (ccIIV4) - SDS - 0.5mL Flucelvax (ccIIV4) - SDS - 0.5mL Unknown Completed [facility] FLUZONE HIGH DOSE OVER 65 FLUZONE HIGH DOSE OVER 65 Unknown Completed [facility] Prevnar 20 (PCV20) Prevnar 20 (PCV20) Unknown Completed [facility] Moderna COVID-19 Vaccine Moderna COVID-19 Vaccine Unknown Completed [facility] Fluarix (IIV4) - SDS - 0.5mL Fluarix (IIV4) - SDS - 0.5mL Unknown Completed [facility] FluAD FluAD Unknown Completed [facility] Afluria Afluria Unknown Completed [facility] Flucelvax (ccIIV4) - SDS - 0.5mL Flucelvax (ccIIV4) - SDS - 0.5mL Unknown Completed [facility] FLUZONE HIGH DOSE OVER 65 FLUZONE HIGH DOSE OVER 65 Unknown Completed [facility] Prevnar 20 (PCV20) Prevnar 20 (PCV20) Unknown Completed [facility] Moderna COVID-19 Vaccine Moderna COVID-19 Vaccine Unknown Completed [facility] Fluarix (IIV4) - SDS - 0.5mL Fluarix (IIV4) - SDS - 0.5mL Unknown Completed [facility] FluAD FluAD Unknown Completed [facility] Afluria Afluria Unknown Completed [facility] Flucelvax (ccIIV4) - SDS - 0.5mL Flucelvax (ccIIV4) - SDS - 0.5mL Unknown Completed [facility] FLUZONE HIGH DOSE OVER 65 FLUZONE HIGH DOSE OVER 65 Unknown Completed [facility] Prevnar 20 (PCV20) Prevnar 20 (PCV20) Unknown [facility] Moderna COVID-19 Vaccine Unknown Completed [facility] Fluarix (IIV4) - SDS - 0.5mL Fluarix (IIV4) - SDS - 0.5mL Unknown Completed [facility] FluAD FluAD Unknown Completed [facility] Afluria Afluria Unknown Completed [facility] Flucelvax (ccIIV4) - SDS - 0.5mL Flucelvax (ccIIV4) - SDS - 0.5mL Unknown Completed [facility] Vital Signs Vital Name Observation Time Observation Value Comments S ource height 2023-08-31 08:40:00 68 [in_i] Commo n [facility] weight 2023-08-31 08:40:00 167.5 [lb_av] Co mmon [facility] temperature 2023-08-31 08:40:00 98.2 [degF] Com mon [facility] bmi 2023-08-31 08:40:00 25.47 kg/m2 Comm on [facility] oximetry 2023-08-31 08:40:00 99 % Commo n [facility] respiratory rate 2023-08-31 08:40:00 16 /min Common [facility] blood pressure systolic 2023-08-31 08:40:00 114 mm[Hg] [facility] blood pressure diastolic 2023-08-31 08:40:00 71 mm[Hg] [facility] height 2023-06-11 07:40:00 68 [in_i] Commo n [facility] weight 2023-06-11 07:40:00 165 [lb_av] Comm on [facility] temperature 2023-06-11 07:40:00 98.6 [degF] Com mon [facility] bmi 2023-06-11 07:40:00 25.09 kg/m2 Comm on [facility] height 2023-05-17 08:50:00 68 [in_i] Commo n [facility] weight 2023-05-17 08:50:00 220.0 [lb_av] Co mmon [facility] temperature 2023-05-17 08:50:00 97.4 [degF] Com [facility] bmi 2023-05-17 08:50:00 33.45 kg/m2 Comm on [facility] oximetry 2023-05-17 08:50:00 99 % Commo n [facility] respiratory rate 2023-05-17 08:50:00 17 /min Common [facility] blood pressure systolic 2023-05-17 08:50:00 126 mm[Hg] [facility] blood pressure diastolic 2023-05-17 08:50:00 69 mm[Hg] [facility] height 2023-05-17 08:50:00 68 [in_i] Commo n [facility] weight 2023-05-17 08:50:00 220.0 [lb_av] Co mmon [facility] temperature 2023-05-17 08:50:00 97.4 [degF] Com mon [facility] bmi 2023-05-17 08:50:00 33.45 kg/m2 Comm on [facility] oximetry 2023-05-17 08:50:00 99 % Commo n [facility] respiratory rate 2023-05-17 08:50:00 17 /min Common [facility] blood pressure systolic 2023-05-17 08:50:00 126 mm[Hg] Common [facility] blood pressure diastolic 2023-05-17 08:50:00 69 mm[Hg] Common [facility] height 2023-04-02 08:00:00 68 [in_i] Commo n [facility] weight 2023-04-02 08:00:00 220 [lb_av] Comm on [facility] bmi 2023-04-02 08:00:00 33.45 kg/m2 Comm on [facility] Body Weight 2023-03-20 00:00:00 167 [lb_av] [facility] Height 2023-03-20 00:00:00 68 [in_i] [facility] BMI (Body Mass Index) 2023-03-20 00:00:00 25.4 kg/m2 [facility] height 2023-03-09 09:00:00 68 [in_i] Commo n [facility] weight 2023-03-09 09:00:00 221 [lb_av] Comm on [facility] bmi 2023-03-09 09:00:00 33.6 kg/m2 Commo n [facility] height 2022-11-21 09:20:00 68 [in_i] Commo n [facility] weight 2022-11-21 09:20:00 221.0 [lb_av] Co mmon [facility] temperature 2022-11-21 09:20:00 97.4 [degF] Com mon [facility] bmi 2022-11-21 09:20:00 33.6 kg/m2 Commo n [facility] oximetry 2022-11-21 09:20:00 99 % Commo n [facility] respiratory rate 2022-11-21 09:20:00 18 /min [facility] blood pressure systolic 2022-11-21 09:20:00 130 mm[Hg] [facility] blood pressure diastolic 2022-11-21 09:20:00 72 mm[Hg] [facility] height 2022-11-09 09:00:00 68 [in_i] Commo n [facility] weight 2022-11-09 09:00:00 221 [lb_av] Comm on [facility] temperature 2022-11-09 09:00:00 98.4 [degF] Com [facility] bmi 2022-11-09 09:00:00 33.6 kg/m2 Commo n [facility] blood pressure systolic 2022-11-09 09:00:00 130 mm[Hg] [facility] blood pressure diastolic 2022-11-09 09:00:00 74 mm[Hg] [facility] height 2022-11-07 13:20:00 68 [in_i] Commo n [facility] weight 2022-11-07 13:20:00 220 [lb_av] Comm on [facility] temperature 2022-11-07 13:20:00 98.3 [degF] Com [facility] bmi 2022-11-07 13:20:00 33.45 kg/m2 Comm on [facility] oximetry 2022-11-07 13:20:00 99 % Commo n [facility] respiratory rate 2022-11-07 13:20:00 16 /min [facility] blood pressure systolic 2022-11-07 13:20:00 126 mm[Hg] Common [facility] blood pressure diastolic 2022-11-07 13:20:00 78 mm[Hg] [facility] height 2022-10-09 09:20:00 68 [in_i] Commo n [facility] weight 2022-10-09 09:20:00 220 [lb_av] Comm on [facility] temperature 2022-10-09 09:20:00 97.0 [degF] Com mon [facility] bmi 2022-10-09 09:20:00 33.45 kg/m2 Comm on [facility] oximetry 2022-10-09 09:20:00 97 % Commo n [facility] respiratory rate 2022-10-09 09:20:00 17 /min [facility] blood pressure systolic 2022-10-09 09:20:00 117 mm[Hg] [facility] blood pressure diastolic 2022-10-09 09:20:00 72 mm[Hg] Common [facility] height 2022-08-21 13:30:00 68 [in_i] Commo n [facility] weight 2022-08-21 13:30:00 220 [lb_av] Comm on [facility] temperature 2022-08-21 13:30:00 97.3 [degF] Com [facility] bmi 2022-08-21 13:30:00 33.45 kg/m2 Comm on [facility] oximetry 2022-08-21 13:30:00 99 % Commo n [facility] respiratory rate 2022-08-21 13:30:00 17 /min [facility] blood pressure systolic 2022-08-21 13:30:00 137 mm[Hg] [facility] blood pressure diastolic 2022-08-21 13:30:00 73 mm[Hg] [facility] height 2022-08-21 13:00:00 68 [in_i] Commo n [facility] weight 2022-08-21 13:00:00 220 [lb_av] Comm on [facility] temperature 2022-08-21 13:00:00 97.3 [degF] Com mon [facility] bmi 2022-08-21 13:00:00 33.45 kg/m2 Comm on [facility] oximetry 2022-08-21 13:00:00 99 % Commo n [facility] respiratory rate 2022-08-21 13:00:00 17 /min [facility] blood pressure systolic 2022-08-21 13:00:00 137 mm[Hg] [facility] blood pressure diastolic 2022-08-21 13:00:00 73 mm[Hg] [facility] height 2021-12-12 08:20:00 68 [in_i] Commo n [facility] weight 2021-12-12 08:20:00 220 [lb_av] Comm on [facility] bmi 2021-12-12 08:20:00 33.45 kg/m2 Comm on [facility] Height 2021-12-12 00:00:00 68 [in_i] [facility] BMI (Body Mass Index) 2021-12-12 00:00:00 33.5 kg/m2 [facility] Body Weight 2021-12-12 00:00:00 220 [lb_av] [facility] height 2021-09-28 08:00:00 68 [in_i] Commo n [facility] weight 2021-09-28 08:00:00 220 [lb_av] Comm on [facility] temperature 2021-09-28 08:00:00 99.1 [degF] Com mon [facility] bmi 2021-09-28 08:00:00 33.45 kg/m2 [facility] [facility] systolic 2021-09-28 08:00:00 125 mm[Hg] [facility] pressure diastolic 2021-09-28 08:00:00 70 mm[Hg] [facility] height 2021-08-15 09:30:00 68 [in_i] [facility] n [facility] weight 2021-08-15 09:30:00 195 [lb_av] Comm on [facility] bmi 2021-08-15 09:30:00 29.65 kg/m2 Comm on [facility] blood pressure systolic 2021-08-15 09:30:00 112 mm[Hg] [facility] blood pressure diastolic 2021-08-15 09:30:00 79 mm[Hg] [facility] height 2021-07-18 08:30:00 68 [in_i] Commo n [facility] weight 2021-07-18 08:30:00 195 [lb_av] Comm on [facility] temperature 2021-07-18 08:30:00 97.7 [degF] Com mon [facility] bmi 2021-07-18 08:30:00 29.65 kg/m2 Comm on [facility] blood pressure systolic 2021-07-18 08:30:00 130 mm[Hg] [facility] blood pressure diastolic 2021-07-18 08:30:00 72 mm[Hg] [facility] height 2021-06-30 10:15:00 68 [in_i] Commo n [facility] weight 2021-06-30 10:15:00 195 [lb_av] Comm on [facility] bmi 2021-06-30 10:15:00 29.65 kg/m2 Comm on [facility] blood pressure systolic 2021-06-30 10:15:00 130 mm[Hg] [facility] blood pressure diastolic 2021-06-30 10:15:00 72 mm[Hg] [facility] height 2021-03-11 08:00:00 68 [in_i] Commo n [facility] weight 2021-03-11 08:00:00 200 [lb_av] Comm on [facility] temperature 2021-03-11 08:00:00 97.8 [degF] Com mon [facility] bmi 2021-03-11 08:00:00 30.41 kg/m2 Comm on [facility] Procedures Procedure Date / Time Performed Performing Clinician Source XR, knee, 1 or 2 view 2023-03-20 00:00:00 [facility] [id number] 2022-12-20 00:00:00 [facility] [id number] 2022-12-20 00:00:00 [facility] [id number] 2022-12-20 00:00:00 [facility] [id number] 2022-12-18 00:00:00 [facility] [id number] 2022-12-18 00:00:00 [facility] [id number] 2022-12-18 00:00:00 [facility] XR, knee, 4 or more view 2021-12-12 00:00:00 [facility] Hysterectomy [facility] Encounters Start Date/Time End Date/Time Encounter Type Admission Type Attending Clinicians Care Facility Care Department Encounter ID Source 2023-12-06 11:33:00 [facility] maryvaleSonal cuenca [facility] [id number] [facility] 2023-12-04 10:10:00 Outpatient Sonal Washington [facility] [id number] [facility] 2023-11-16 12:10:00 Outpatient Sonal Washington [facility] [id number] [facility] 2023-09-17 15:14:00 Outpatient Sonal Washington [facility] [id number] [facility] 2023-08-28 10:08:00 Outpatient Sonal Washington [facility] [id number] [facility] 2023-08-03 09:26:00 Outpatient Sonal Washington [facility] ST[facility] [id number] [facility] 2023-08-01 09:06:00 Outpatient Sonal Washington [facility] ST[facility] [id number] [facility] 2023-07-05 15:33:00 Outpatient Sonal Washington [facility] [id number] [facility] 2023-06-07 14:25:00 Outpatient Bhakta, Nikolay [facility] [id number] [facility] 2023-05-16 08:42:00 Outpatient Bhakta, Nikolay [facility] [id number] [facility] 2023-05-15 08:08:00 Outpatient Bhakta, Nikolay [facility] ST[facility] [id number] [facility] 2023-03-07 08:28:00 Outpatient Bhakta, Nikolay [facility] ST[facility] [id number] [facility] 2023-03-05 11:04:00 Outpatient Bhakta, Nikolay [facility] ST[facility] [id number] [facility] 2022-12-19 10:04:00 Outpatient Bhakta, Nikolay [facility] [id number] [facility] 2022-11-09 11:20:00 Outpatient Bhakta, Nikolay [facility] [id number] [facility] 2022-11-07 14:39:00 Outpatient Bhakta, Nikolay [facility]C ST[facility] [id number] [facility] 2022-11-02 10:30:00 Outpatient BhaktaNikolay hernandez STLMLC STLMLC [id number] [facility] 2022-09-06 09:05:00 Outpatient Nikolay Bhakta STLMLC STL[facility] [id number] [facility] 2022-08-14 09:39:00 Outpatient Nikolay Bhakta STLMLC STL[facility]C [id number] [facility] 2022-08-02 13:42:00 Outpatient Ofelia KHALIL STLMLC STLMLC [id number] [facility] 2022-06-26 09:37:01 Outpatient Ofelia Khalil STLMLC STLMLC [id number] [facility] 2022-02-22 12:30:00 Inpatient Carlie Garrido [facility]AT[facility] HCATO [id number] 42 [facility] 2022-01-27 09:45:01 Outpatient Good, Na STLMLC STLMLC [id number] [facility] 2022-01-03 08:06:00 Outpatient Latisha Na STLMLC STLMLC [id number] [facility] 2021-12-08 08:08:00 Outpatient Good, Na STLMLC STLMLC [id number] [facility] 2021-10-04 11:22:00 Outpatient Good, Na STLMLC STLMLC [id number] [facility] 2021-09-26 09:17:00 Outpatient Good, Na STLMLC STLMLC [id number] [facility] 2021-08-23 09:54:00 Outpatient Good, Na STLMLC STLMLC [id number] [facility] 2021-06-27 08:14:00 Outpatient Good, Na STLMLC STLMLC [id number] [facility] 2021-06-24 11:35:01 Outpatient Jannette Good STLMLC STLMLC [id number] [facility] 2021-06-07 10:43:00 Outpatient Jannette Good STLMLC STLMLC [id number] [facility] 2021-05-18 16:35:00 Outpatient Jannette Good STLMLC STLMLC [id number] [facility] 2021-03-23 14:34:30 Outpatient Jannette Good STLMLC STLMLC [id number] [facility] 2021-03-23 14:00:26 Outpatient Jannette Good STLMLC STLMLC [id number] [facility] 2021-03-23 13:58:30 Outpatient Jannette Good STLMLC STLMLC [id number] [facility] 2021-03-23 13:57:22 Outpatient Jannette Good STLMLC STLMLC [id number] [facility] 2021-03-23 13:23:44 Outpatient Jannette Good STLMLC STLMLC [id number] [facility] 2021-03-23 12:45:34 Outpatient Jannette Good STLMLC STLMLC [id number] [facility] 2021-03-23 12:36:03 Outpatient Jannette Good STLMLC STLMLC [id number] [facility] 2021-03-23 12:21:11 Outpatient Jannette Good STLMLC STLMLC [id number] [facility] 2021-03-23 12:09:34 Outpatient Jannette Good STLMLC STLMLC [id number] [facility] 2021-03-23 11:58:50 Outpatient Good, Na STLMLC STLMLC [id number] [facility] 2021-03-23 11:33:44 Outpatient Good, Na STLMLC STLMLC [id number] [facility] 2021-03-23 11:31:40 Outpatient Good, Na STLMLC STLMLC [id number] [facility] 2021-03-23 11:18:14 Outpatient Good, Na STLMLC STLMLC [id number] [facility] 2021-03-23 11:16:56 Outpatient Latisha Na STLMLC STLMLC [id number] [facility] 2023-12-10 00:00:00 2023-12-10 00:00:00 (TEL) STLMLC STLMLC [id number] [facility] 2023-12-06 00:00:00 2023-12-06 00:00:00 OFFICE VISIT ESTAB PT LEVEL 4 STLMLC STLMLC [id number] [facility] 2023-12-06 00:00:00 2023-12-06 00:00:00 (TEL) STLMLC STLMLC [id number] [facility] 2023-11-28 00:00:00 2023-11-28 00:00:00 (TEL) STLMLC STLMLC [id number] [facility] 2023-11-16 00:00:00 2023-11-16 00:00:00 (TEL) STLMLC STLMLC [id number] [facility] 2023-11-14 00:00:00 2023-11-14 00:00:00 (TEL) STLMLC STLMLC [id number] [facility] 2023-09-13 00:00:00 2023-09-13 00:00:00 (TEL) STLMLC STLMLC [id number] [facility] 2023-09-12 00:00:00 2023-09-12 00:00:00 (TEL) STLMLC STLMLC [id number] [facility] 2023-09-12 00:00:00 2023-09-12 00:00:00 (TEL) STLMLC STLMLC [id number] [facility] 2023-09-07 00:00:00 2023-09-07 00:00:00 (TEL) STLMLC STLMLC [id number] [facility] 2023-08-31 00:00:00 2023-08-31 00:00:00 OFFICE VISIT ESTAB PT LEVEL 4 STLMLC STLMLC [id number] [facility] 2023-08-31 00:00:00 2023-08-31 00:00:00 (TEL) STLMLC STLMLC [id number] [facility] 2023-08-10 00:00:00 2023-08-10 00:00:00 (TEL) STLMLC STLMLC [id number] [facility] 2023-08-07 00:00:00 2023-08-07 00:00:00 (TEL) STLMLC STLMLC [id number] [facility] 2023-08-03 00:00:00 2023-08-03 00:00:00 OFFICE VISIT ESTAB PT LEVEL 3 STLMLC STLMLC [id number] [facility] 2023-08-03 00:00:00 2023-08-03 00:00:00 (TEL) STLMLC STLMLC [id number] [facility] 2023-08-03 00:00:00 2023-08-03 00:00:00 (TEL) STLMLC STLMLC [id number] [facility] 2023-07-24 00:00:00 2023-07-24 00:00:00 (TEL) STLMLC STLMLC [id number] [facility] 2023-07-16 00:00:00 2023-07-16 00:00:00 (TEL) STLMLC STLMLC [id number] [facility] 2023-07-13 00:00:00 2023-07-13 00:00:00 (TEL) STLMLC STLMLC [id number] [facility] 2023-07-11 00:00:00 2023-07-11 00:00:00 (TEL) STLMLC STLMLC [id number] [facility] 2023-07-11 00:00:00 2023-07-11 00:00:00 (TEL) STLMLC STLMLC [id number] [facility] 2023-07-09 00:00:00 2023-07-09 00:00:00 (TEL) STLMLC STLMLC [id number] [facility] 2023-07-06 00:00:00 2023-07-06 00:00:00 (TEL) STLMLC STLMLC [id number] [facility] 2023-07-06 00:00:00 2023-07-06 00:00:00 OFFICE VISIT NEW PT LEVEL 4 STLMLC STLMLC [id number] [facility] 2023-07-06 00:00:00 2023-07-06 00:00:00 (TEL) STLMLC STLMLC [id number] [facility] 2023-07-05 00:00:00 2023-07-05 00:00:00 (TEL) STLMLC STLMLC [id number] [facility] 2023-06-28 00:00:00 2023-06-28 00:00:00 (TEL) STLMLC STLMLC [id number] [facility] 2023-06-25 00:00:00 2023-06-25 00:00:00 (TEL) STLMLC STLMLC [id number] [facility] 2023-06-25 00:00:00 2023-06-25 00:00:00 (TEL) STLMLC STLMLC [id number] [facility] 2023-06-20 00:00:00 2023-06-20 00:00:00 (TEL) STLMLC STLMLC [id number] [facility] 2023-06-14 00:00:00 2023-06-14 00:00:00 (TEL) STLMLC STLMLC [id number] [facility] 2023-06-11 00:00:00 2023-06-11 00:00:00 (EST. VIDEO) EST VIRTUAL VIDEO VISIT STLMLC STLMLC [id number] [facility] 2023-06-07 00:00:00 2023-06-07 00:00:00 (TEL) STLMLC STLMLC [id number] [facility] 2023-06-07 00:00:00 2023-06-07 00:00:00 (TEL) STLMLC STLMLC [id number] [facility] 2023-05-17 00:00:00 2023-05-17 00:00:00 OFFICE VISIT ESTAB PT LEVEL 4 STLMLC STLMLC [id number] [facility] 2023-05-17 00:00:00 2023-05-17 00:00:00 SUB ANNUAL [facility] WELLNESS VISIT STLMLC STLMLC [id number] [facility] 2023-05-17 00:00:00 2023-05-17 00:00:00 (TEL) STLMLC STLMLC [id number] [facility] 2023-05-10 00:00:00 2023-05-10 00:00:00 (TEL) STLMLC STLMLC [id number] [facility] 2023-04-02 00:00:00 2023-04-02 00:00:00 OFFICE VISIT ESTAB PT LEVEL 3 STLMLC STLMLC [id number] [facility] 2023-03-30 00:00:00 2023-03-30 00:00:00 (TEL) STLMLC STLMLC [id number] [facility] 2023-03-29 00:00:00 2023-03-29 00:00:00 (TEL) [facility] [id number] [facility] 2023-03-20 00:00:00 2023-03-20 00:00:00 Ian Monzon MD: [address] [place] [phone] , Ph. [phone] [facility] [place] [facility] - FOG_Ofc [place] [id number] [facility] 2023-03-09 00:00:00 2023-03-09 00:00:00 (TEL) [facility] [id number] [facility] 2023-03-09 00:00:00 2023-03-09 00:00:00 (EST. VIDEO) EST VIRTUAL VIDEO VISIT [facility] [id number] [facility] 2023-03-07 00:00:00 2023-03-07 00:00:00 Outpatient FOG_Behlisa _Robin AOSM AO [id number] [facility] 2023-03-05 00:00:00 2023-03-05 00:00:00 (TEL) [facility] [id number] [facility] 2023-02-23 00:00:00 2023-02-23 00:00:00 Outpatient FOG_Behlisa _Robin AOSM AOSM [id number] [facility] 2023-02-20 00:00:00 2023-02-20 00:00:00 (TEL) [facility] [id number] [facility] 2023-01-01 00:00:00 2023-01-01 00:00:00 Outpatient FOG_Burke_R obJamaica AOSM AOSM [id number] [facility] 2023-01-01 00:00:00 2023-01-01 00:00:00 Outpatient FOG_Burke_R obdenis_ AOSM AOSM [id number] [facility] 2023-01-01 00:00:00 2023-01-01 00:00:00 Outpatient FOG_Burkmarlin_Ricardo Rainey AOSM AOSM [id number] [facility] 2022-12-25 00:00:00 2022-12-25 00:00:00 Outpatient GC_GCBZW_Ka diyala_S PRIV PRIV [id number] [facility] 2022-12-24 00:00:00 2022-12-24 00:00:00 Outpatient GC_GCBZW_Ka diyala_S PRIV PRIV [id number] [facility] 2022-12-20 15:46:00 2022-12-21 16:12:00 Inpatient Jose Kerrhan [facility] SURG [id number] 57 [facility] 2022-12-08 16:36:00 2022-12-08 16:36:00 Outpatient Ian Monzon HCACL LABO [id number] [facility] 2022-10-10 08:00:00 2022-12-08 16:00:00 Outpatient Carlie Simmons HCATO LABO [id number] 25 [facility] 2022-12-08 10:50:00 2022-12-08 10:50:00 Outpatient Aisha Kerrnathan HCATO RADI [id number] 87 [facility] 2022-11-29 00:00:00 2022-11-29 00:00:00 Outpatient FOG_Burke_R Redd AOSM AOSM [id number] [facility] 2022-11-29 00:00:00 2022-11-29 00:00:00 Outpatient FOG_Burke_R Redd AOSM AOSM [id number] [facility] 2022-11-29 00:00:00 2022-11-29 00:00:00 Outpatient FOG_Burke_R Redd AOSM AOSM [id number] [facility] 2022-11-29 00:00:00 2022-11-29 00:00:00 Outpatient FOG_Burke_R obJamaica AOSM AOSM [id number] [facility] 2022-11-29 00:00:00 2022-11-29 00:00:00 Outpatient FOG_Burke_R obertHAVEN AOSM AOSM [id number] [facility] 2022-11-29 00:00:00 2022-11-29 00:00:00 Outpatient FOG_Burke_R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
[2023-12-22 04:28] LABS: AST/SGOT 20 U/L (15-37); Albumin 2.4 g/dL (3.4-5.0); Albumin/Globulin Ratio 0.5 (1.1-1.8); Alkaline Phosphatase 91 U/L (45-117); Anion Gap 8.5 mEq/L (5.0-15.0); BUN Blood Urea Nitrogen 16 mg/dL (7-18); Bicarbonate 25 mEq/L (21-32); Bilirubin Total 0.5 mg/dL (0.2-1.0); Globulin 4.6 g/dL (2.3-3.5); Glomerular Filtration Rate 110 ml/min (=/>90); Glucose Level 124 mg/dL (74-106); Potassium 3.5 mEq/L (3.5-5.1); Sodium Level 141 mEq/L (136-145)
[2023-12-22 04:29] LABS: ALT/SGPT < 14 U/L (13-56)
[2023-12-22 04:31] LABS: PT Prothrombin Time 11.9 SECONDS (9.4-12.5); PTT, Activated Partial Thromb 36.4 SECONDS (24.3-36.9); Protime INR 1.06
[2023-12-22 04:33] LABS: Absolute Eosinophils 0.1 K/uL (0-0.5); Absolute Lymphocytes (CBC) 1.1 K/uL (0.7-4.9); Absolute Monocytes 0.4 K/uL (0.1-1.3); Absolute Neutrophil 5.3 K/uL (1.8-8.0); Basophils % 0.3 % (0-1.3); Eosinophils % 0.8 % (0-4.4); Hematocrit 35.7 % (36.0-45.0); Hemoglobin 11.6 g/dL (12.0-15.0); Lymphocytes % 15.9 % (15.3-44.8); MCH 26.1 pg (27.0-35.0); MCHC 32.7 g/dL (32.0-36.0); MCV 79.8 fL (80-100); MPV 8.2 fL (7.6-11.3); Monocytes % 5.8 % (3.3-12.3); Neutrophils % 77.2 % (41.7-73.7); Nucleated Red Blood Cells % 0.1 % (0-0); Platelets 255 thou/uL (152-406); RBC Red Blood Cell Count 4.47 M/uL (3.86-4.86); Red Cell Distribution Width 17.4 % (12.1-15.2)
[2023-12-22 05:05] LABS: Specific Gravity 1.018 (1.005-1.030); Sqamous Epithelial None Seen /HPF (None Seen); Urine Bacteria <20 /HPF (<20); Urine Bilirubin NEGATIVE (Negative); Urine Blood 3+ (OVER) (Negative); Urine Clarity Extremely Turbid (Clear); Urine Color Light-Yellow (Yellow); Urine Crystals Unidentified Few /HPF (None Seen); Urine Culture Reflex Order REFLEXED; Urine Glucose NEGATIVE (Negative); Urine Ketones NEGATIVE (Negative); Urine Microscopic Reflex YN ORDER UMIC; Urine Mucus Slight /HPF (None Seen); Urine Nitrite NEGATIVE (Negative); Urine Protein TRACE (Negative); Urine RBC >50 /HPF (None Seen); Urine Urobilinogen Normal (Normal); Urine WBC >50 /HPF (<5); Urine WBC Clump Few /HPF (None Seen); Urine Yeast (Budding) Occasional /HPF (None Seen)
--- NOTE | 2023-12-22 05:25 | EDPHYS ---
Physician Documentation [facility] Name: Young Gates Age: 63 yrs Sex: Female : 1960 Arrival Date: 12/22/2023 Time: 02:00 Bed 18 Private MD: ED Physician Janes Higginbotham HPI: 12/21 05:45 This 63 yrs old Female presents to ER via EMS with complaints of Problem With Urinary rt Catheter. 05:45 Patient with indwelling chronic Patton catheter presents to the ED with clogged Patton rt catheter. Patient states he does supposed to be changed out a week ago. Reports malodorous urine as well as leaking around it. Denies other acute complaints at this time, symptoms are moderate in severity, no other aggravating or alleviating factors.. Historical: - Allergies: 02:46 Ampicillin; bm8 02:46 Azithromycin; bm8 02:46 Chocolate; bm8 02:46 Lisinopril; bm8 02:46 PENICILLINS; bm8 02:46 SHELLFISH; bm8 - Home Meds: 02:46 Unable to obtain [Active]; bm8 - PMHx: 02:46 Arthritis; Cerebrovascular accident; chronic sacral pressure ulcer; bm8 Hypercholesterolemia; Hypertension; Hypothyroidism; Kidney stones; osteoarthritis; - PSHx: 02:46 Right knee replacement; bm8 - Immunization history:: Adult Immunizations up to date. - Infectious Disease History:: Denies. - Social history:: Smoking status: Patient denies any tobacco usage or history of. Patient/guardian denies using alcohol, street drugs. - Family history:: not pertinent. ROS: 05:45 Constitutional: Negative for fever, chills, and weight loss, Cardiovascular: Negative rt for chest pain, palpitations, and edema, Respiratory: Negative for shortness of breath, cough, wheezing, and pleuritic chest pain, Abdomen/GI: Negative for abdominal pain, nausea, vomiting, diarrhea, and constipation, MS/Extremity: Negative for injury and deformity, Skin: Negative for injury, rash, and discoloration, Exam: 05:45 Constitutional: This is a well developed, well nourished patient who is awake, alert, rt and in no acute distress. Head/Face: Normocephalic, atraumatic. Chest/axilla: Normal chest wall appearance and motion. Nontender with no deformity. No lesions are appreciated. Cardiovascular: Regular rate and rhythm with a normal S1 and S2. No gallops, murmurs, or rubs. Normal PMI, no JVD. No pulse deficits. Respiratory: Lungs have equal breath sounds bilaterally, clear to auscultation and percussion. No rales, rhonchi or wheezes noted. No increased work of breathing, no retractions or nasal flaring. Abdomen/GI: Soft, non-tender, with normal bowel sounds. No distension or tympany. No guarding or rebound. No evidence of tenderness throughout. Skin: Warm, dry with normal turgor. Normal color with no rashes, no lesions, and no evidence of cellulitis. MS/ Extremity: Pulses equal, no cyanosis. Neurovascular intact. Full, normal range of motion. 05:45 ECG was reviewed by the Attending Physician. Vital Signs: 02:23 BP 182 / 96; Pulse 100; Resp 17; Temp 98.1; Pulse Ox 98% ; Weight 75.75 kg; Height 5 bm8 ft. 8 in. ; Pain 8/10; 02:50 BP 125 / 84; Pulse 76; Resp 18; Temp 98.1; Pulse Ox 100% on R/A; kj2 04:46 BP 117 / 81; Pulse 84; Resp 18; Pulse Ox 100% on R/A; kj2 05:28 BP 128 / 85; Pulse 80; Resp 18; Temp 98; Pulse Ox 100% ; kj2 02:23 Body Mass Index 25.39 (75.75 kg, 172.72 cm) bm8 02:23 Pain Scale: Adult bm8 MDM: 02:23 Medical Screening Exam initiated rt 05:45 Differential Diagnosis UTI, mechanical Patton catheter complication. Data reviewed: rt vital signs, nurses notes, lab test result(s). Test considered but Not performed: CT: Symptoms improved with placement of Patton catheter, CT scan is not indicated. Care significantly affected by the following chronic conditions: Previous CVA. Counseling: I had a detailed discussion with the patient and/or guardian regarding the historical points, exam findings, and any diagnostic results supporting the discharge/admit diagnosis, lab results, the need for outpatient follow up. Response to treatment: the patient's symptoms have markedly improved after treatment. 12/21 02:24 Order name: Blood Culture Adult (2) rt 12/21 02:24 Order name: CBC with Diff; Complete Time: 04:38 rt 12/21 02:24 Order name: CMP; Complete Time: 04:38 rt 12/21 02:24 Order name: Lactate w/ 2H reflex if indic.; Complete Time: 04:38 rt 12/21 02:24 Order name: Protime (+inr); Complete Time: 04:38 rt 12/21 02:24 Order name: Ptt, Activated; Complete Time: 04:38 rt 12/21 02:24 Order name: Urinalysis w/ reflexes; Complete Time: 05:08 rt 12/21 05:08 Order name: Urine Culture EDMS 12/21 02:24 Order name: Cardiac monitoring; Complete Time: 05:43 rt 12/21 02:24 Order name: IV Saline Lock - Large Bore; Complete Time: 03:27 rt 12/21 02:24 Order name: Labs collected and sent; Complete Time: 03:27 rt 12/21 02:24 Order name: O2 Per Protocol; Complete Time: 05:43 rt 12/21 02:24 Order name: O2 Sat Monitoring; Complete Time: 05:43 rt 12/21 02:24 Order name: Vital Signs; Complete Time: 05:43 rt 12/21 02:24 Order name: Patton; Complete Time: 03:31 rt EC:45 Rate is 88 beats/min. Rhythm is regular, Normal Sinus Rhythm with Occasional PVCs. Left rt axis deviation noted. OR interval is normal. QRS interval is normal. QT interval is normal. No Q waves. No ST changes noted. Administered Medications: No medications were administered Disposition Summary: 12/22/23 05:25 Discharge Ordered Notes: Location: Home rt Problem: new rt Symptoms: have improved rt Condition: Stable rt Diagnosis - Mechanical complication of Patton catheter rt - Urinary tract infection rt Followup: rt - With: Private Physician - When: 2 - 3 days - Reason: Discharge Instructions: - Discharge Summary Sheet rt - Indwelling Urinary Catheter Care, Adult rt - Urinary Tract Infection, Adult rt Forms: - Medication Reconciliation Form rt - Antibiotic Education rt - Prescription Opioid Use rt - Patient Portal Instructions rt - Leadership Thank You Letter rt Prescriptions: - cefpodoxime 200 mg Oral tablet - take 1 tablet ORAL route every 12 hours with food; 14 tablet; Refills: 0, rt Product Selection Permitted Signatures: Dispatcher [employer] EDMS Janes Higginbotham MD MD rt Sb Amos, RN RN bm8 Corrections: (The following items were deleted from the chart) 04: 04:19 BLOOD CULTURE*+BA.LAB.BRZ ordered. EDMS EDMS 04: 04:19 CBC+H.LAB.BRZ ordered. EDMS EDMS 04: 04:19 COMPREHENSIVE METABOLIC PANEL+C.LAB.BRZ ordered. EDMS EDMS 04: 04:19 LACTATE+C.LAB.BRZ ordered. EDMS EDMS 04: 04:19 PROTIME (+INR)+COAG.LAB.BRZ ordered. EDMS EDMS 04: 04:19 PTT, ACTIVATED+COAG.LAB.BRZ ordered. EDMS EDMS 04:19 04:19 Urinalysis+U.LAB.BRZ ordered. EDMS EDMS
--- NOTE | 2023-12-22 05:25 | ER ---
Nurse's Notes [facility] Name: Young Gates Age: 63 yrs Sex: Female : 1960 Arrival Date: 12/22/2023 Time: 02:00 Bed 18 Private MD: Diagnosis: Mechanical complication of Patton catheter;Urinary tract infection Presentation: 12/21 02:23 Chief complaint: Patient states: I think my catheter is leaking or something because bm8 none of my urine is getting in the bag. Coronavirus screen: At this time, the client does not indicate any symptoms associated with coronavirus-19. Ebola Screen: Patient negative for fever greater than or equal to 101.5 degrees Fahrenheit, and additional compatible Ebola Virus Disease symptoms Patient denies exposure to infectious person. Patient denies travel to an Ebola-affected area in the 21 days before illness onset. No symptoms or risks identified at this time. Initial Sepsis Screen: Does the patient meet any 2 criteria? HR > 90 bpm. No. Patient's initial sepsis screen is negative. Does the patient have a suspected source of infection? No. Patient's initial sepsis screen is negative. Risk Assessment: Do you want to hurt yourself or someone else? Patient reports no desire to harm self or others. Onset of symptoms is unknown. 02:23 Method Of Arrival: EMS: [facility] bm8 02:23 Acuity: KJ 3 bm8 Triage Assessment: 02:23 General: Appears in no apparent distress. uncomfortable, Behavior is calm, cooperative, bm8 appropriate for age, Smells of urine. 02:23 Pain: Complains of pain in generalized lower abd Pain currently is 8 out of 10 on a bm8 pain scale. EENT: No deficits noted. No signs and/or symptoms were reported regarding the EENT system. Neuro: No deficits noted. Level of Consciousness is awake, alert, obeys commands. Cardiovascular: Denies chest pain, Heart tones S1 S2 present Capillary refill < 3 seconds in bilateral fingers Patient's skin is warm and dry. Respiratory: Airway is patent Respiratory effort is even, unlabored, Respiratory pattern is regular, symmetrical, Breath sounds are clear bilaterally. GI: Abdomen is flat, non-distended, Reports lower abdominal pain. : Patton in place to gravity drainage no urine in bag. excoriation noted at groin and in between thighs Reports cramping, in lower abd pt's clothing and bedding soaked in urine, with foul odor. Derm: Reports wounds on back that are being treated by home health nurse, excoriation under each breast. Historical: - Allergies: 02:46 Ampicillin; bm8 02:46 Azithromycin; bm8 02:46 Chocolate; bm8 02:46 Lisinopril; bm8 02:46 PENICILLINS; bm8 02:46 SHELLFISH; bm8 - Home Meds: 02:46 Unable to obtain [Active]; bm8 - PMHx: 02:46 Arthritis; Cerebrovascular accident; chronic sacral pressure ulcer; bm8 Hypercholesterolemia; Hypertension; Hypothyroidism; Kidney stones; osteoarthritis; - PSHx: 02:46 Right knee replacement; bm8 - Immunization history:: Adult Immunizations up to date. - Infectious Disease History:: Denies. - Social history:: Smoking status: Patient denies any tobacco usage or history of. Patient/guardian denies using alcohol, street drugs. - Family history:: not pertinent. Screenin:[facility] ED Fall Risk Assessment (Adult) History of falling in the last 3 months, kj2 including since admission No falls in past 3 months (0 pts) Confusion or Disorientation No (0 pts) Intoxicated or Sedated No (0 pts) Impaired Gait No (0 pts) Mobility Assist Device Used Yes (1 pt) Altered Elimination Yes (1 pt) Score/Fall Risk Level 0 - 2 = Low Risk. Abuse screen: Denies threats or abuse. Denies injuries from another. Nutritional screening: No deficits noted. Tuberculosis screening: No symptoms or risk factors identified. Assessment: 02:45 General: Appears in no apparent distress. comfortable, Behavior is calm, cooperative. kj2 Pain: Denies pain. Neuro: Level of Consciousness is awake, alert, obeys commands, Oriented to person, place, time, situation. Cardiovascular: Patient's skin is warm and dry. Respiratory: Airway is patent Respiratory effort is even, unlabored. GI: No signs and/or symptoms were reported involving the gastrointestinal system. : Patton in place Reports CATHETER IS LEAKING. 04:46 Reassessment: Patient appears in no apparent distress at this time. Patient and/or kj2 family updated on plan of care and expected duration. Pain level reassessed. Patient is alert, oriented x 3, equal unlabored respirations, skin warm/dry/pink. 05:26 Reassessment: Patient appears in no apparent distress at this time. Patient and/or kj2 family updated on plan of care and expected duration. Pain level reassessed. Patient is alert, oriented x 3, equal unlabored respirations, skin warm/dry/pink. 05:55 Reassessment: WAITING ON EMS TRANSPORTATION. kj2 Vital Signs: 02:23 BP 182 / 96; Pulse 100; Resp 17; Temp 98.1; Pulse Ox 98% ; Weight 75.75 kg; Height 5 bm8 ft. 8 in. ; Pain 8/10; 02:50 BP 125 / 84; Pulse 76; Resp 18; Temp 98.1; Pulse Ox 100% on R/A; kj2 04:46 BP 117 / 81; Pulse 84; Resp 18; Pulse Ox 100% on R/A; kj2 05:28 BP 128 / 85; Pulse 80; Resp 18; Temp 98; Pulse Ox 100% ; kj2 02:23 Body Mass Index 25.39 (75.75 kg, 172.72 cm) bm8 02:23 Pain Scale: Adult bm8 ED Course: 02:22 Patient arrived in ED. gm2 02:23 Janes Higginbotham MD is Attending Physician. rt 02:23 Arm band placed on right wrist. bm8 02:46 Triage completed. bm8 02:50 Patient has correct armband on for positive identification. Placed in gown. Bed in low kj2 position. Call light in reach. Side rails up X2. Provided Education on: CALL LIGHT. 03:27 Inserted saline lock: 20 gauge in right forearm, using aseptic technique. Blood af3 collected. Flushed with 10 mL NS. 03:43 Rosa M Mills, EUNICE is Primary Nurse. kj2 05:29 No provider procedures requiring assistance completed. kj2 05:53 IV discontinued, intact, bleeding controlled, No redness/swelling at site. Pressure kj2 dressing applied. Administered Medications: No medications were administered Medication: 03:30 VIS not applicable for this client. kj2 Outcome: 05:25 Discharge ordered by . rt 05:30 Discharged to kj2 05:53 Condition: stable kj2 05:53 Discharge instructions given to patient, Instructed on discharge instructions, follow up and referral plans. medication usage, Demonstrated understanding of instructions, follow-up care, medications, Prescriptions given X 1, 06:14 Patient left the ED. kj2 Addendum: 12/25/2023 11:08 Addendum: Culture Results: Positive urine culture. Bacteria is resistant to, has s s intermediate sensitivity, or is not tested against prescribed antibiotics. Report given to LEANN for further evaluation and then to solar installation manager for follow up with patient. Prescription called-in to pharmacy of choice. Called in Macrobid 100 mg BID x 7 days x 14 to [facility] [id number] as recommended by LY Howard. Signatures: Park Fowler, RN RN ss Janes Higginbotham MD MD rt Debi Avila 2 Sb Amos RN RN bm8 Rosa M Mills RN RN kj2 Kimberly Camarillo
[2023-12-22 16:36] VITALS: O2SAT 100
[2023-12-22 16:48] VITALS: BP 128/85; TEMP 98
== END 2023-12-22 06:14 | disposition home or self-care (01) ==
LOC: ER 02:00
DX: T83.098A Other mechanical complication of other urinary catheter, initial encounter (principal); N39.0 Urinary tract infection, site not specified
CPT/HCPCS: 36415; 80053; 81001; 83605; 85025; 85610; 85730; 87040; 87077; 87086; 87088; 87186; 99284

== ENCOUNTER 2023-12-23 08:11 | Emergency (ER) | payer OTHER ==
--- OUTSIDE RECORDS SUMMARY | 2023-12-23 08:17 | XMS REPORT | Continuity of Care Document ---
Author Name Unknown Address [address] [facility] [address] [place] [address] [facility] thconnect Address [address] 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 Name Role Phone Sonal Washington Attending Clinician [...] Number Effective Date Expirati on Date Source [facility] Dual Complete (HMO-POS D-SNP) [id number] 2023 00:00:00 2024 00:00:00 [facility] - DUAL ELIGIBLE (MEDICARE REPLACEMENT/ADVAN TAGE - HMO) [id number] 2022 00:00:00 [place]PLACEMENT - HMO) [id number] 2018 00:00:00 [facility] - DUAL COMPLETE - DUAL ELIGIBLE - SNP (MEDICARE-MEDICAI D REPLACEMENT HMO) [id number] [facility] - [facility] - [facility] - DUAL COMPLETE FOCUS (MEDICARE REPLACEMENT HMO) [id number] MEDICAID MC [id number] 2012 00:00:00 [facility] MEDICARE NOVITAS MB [id number] 2010 00:00:00 [facility] AMERIGROUP (Medicaid) [id number] 2018 00:00:00 [facility] Problems Condition Name Condition Details [...] 00 [facility] [id number] Functional quadripleg ia Problem [facility] [id number] Microcytic anemia Problem [facility] [id number] Pressure injury of deep tissue of sacral region Problem Common [facility] [id number] Chronic ulcer of lower extremity, right, with unspecifie d severity Problem Common [facility] [id number] MRSA infection Problem Common [facility] [id number] S/P PICC central line placement Problem Common [facility] Encounter for Bang catheter replacemen t Encounter for Bang catheter replacemen t Problem Common [facility] [id number] Incontinen ce of feces, unspecifie d fecal incontinen ce type Problem [facility] [id number] Urinary incontinen ce, unspecifie d type Problem [facility] [id number] Sacral osteomyeli tis Problem [facility] [id number] Loss of appetite Problem [facility] [id number] Seasonal allergies Problem [facility] [id number] Current mild episode of major depressive disorder without prior episode Problem [facility] Overweight Overweight Problem Co mmon [facility] [id number] Seasonal allergic rhinitis due to pollen Problem [facility] [id number] Other closed fracture of proximal end of right tibia, initial encounter Problem [facility] [id number] Other closed fracture of proximal end of right fibula, initial encounter Problem [facility] [id number] BMI 33.0-33.9, adult Problem [facility] General weakness General weakness Problem [facility] Pain in limb Pain in limb Problem [facility] 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 Problem [facility] Edema Edema leg Problem [facility] [id number] Other closed fracture of distal end of right femur, initial encounter Problem [facility] [id number] Other obesity due to excess calories Problem Common [facility] Peripheral neuropathy Peripheral neuropathy Problem Common [facility] Hypertensi on HTN (hypertens ion) Problem Common [facility] Gastroesop hageal reflux disease GERD (gastroeso phageal reflux disease) Problem [facility] Anemia Anemia Problem [facility] Hypothyroi dism Hypothyroi dism Problem [facility] Rheumatoid arthritis Rheumatoid arthritis Problem [facility] Hyperlipid emia Hyperlipid emia Problem [facility] [id number] +5th digit eff 11/27/19*[place] stroesopha geal reflux disease with esophagiti s Problem [facility] [id number] Neuropathy Problem Com mon [facility] [id number] Wheelchair dependence Problem [facility] Knee pain Knee pain Problem Comm on [facility] [id number] Chronic seasonal allergic rhinitis Problem [facility] Dependence on wheelchair Uses wheelchair Problem [facility] Acquired genu valgum Valgus deformity, not elsewhere classified , right knee Problem [facility] [id number] Influenza vaccinatio n administer ed at current visit Problem [facility] [id number] 5106 Pressure injury of sacral region, stage 4 Problem [facility] [id number] Leukocytos is, unspecifie d type Problem [facility] Allergies, Adverse Reactions, Alerts Allergy Name Allergy Type Status Severity Reaction(s) Onset Date Inactive Date Treating Clinician Comments Source Penicill ins DA Active SV BREAKOUT IN HIVES UNDER THE SKIN 2022-02 00:00: 00 [facility] lisinopr il DA Active SV CAUSE ME TO HAVE KIDNEY FAILURE 2022-02 00:00: 00 [facility] iodine DA Active SV THROAT SWELLING UP, DIFFICULTY BREATHING 2022-02 0 00:00: 00 [facility] azithrom ycin DA Active SV HIVES 2022-02 00:00: 00 [facility] shellfis h derived FA Active SV THROAT SWELLING UP, DIFFICULTY BREATHING 2022-02 00:00: 00 [facility] shrimp FA Active SV THROAT SWELLS, DIFFICULTY BREATHING 2022-02 00:00: 00 [facility] [place] [facility] crab FA Active SV THROAT SWELLS, DIFFICULTY BREATHING 2022-02 0-23 00:00: 00 [facility] azithrom ycin DA Active SV HIVES 2022-02 0-13 00:00: 00 [facility] Penicill ins DA Active SV BREAKOUT IN HIVES UNDER THE SKIN 8-17 00:00: 00 [facility] lisinopr il DA Active SV CAUSE ME TO HAVE KIDNEY FAILURE 8- 00:00: 00 [facility] iodine DA Active SV THROAT SWELLING UP, DIFFICULTY BREATHING 8-17 00:00: 00 [facility] shellfis h derived FA Active SV THROAT SWELLING UP, DIFFICULTY BREATHING - 00:00: 00 [facility] shrimp FA Active SV THROAT SWELLS, DIFFICULTY BREATHING 8 00:00: 00 [facility] crab FA Active SV THROAT SWELLS, DIFFICULTY BREATHING 8 00:00: 00 [facility] LISINOPR [place] Allergy to substanc e [...] Active [facility] [id number] Drug allergy Active Unknown [facility] [id number] 85 Drug allergy Active Unknown [facility] Social History Social Habit Start Date Stop Date Quantity Comments Source History of Tobacco Use [facility] Sex Assigned At [facility] Smoking Status Start Date Stop [...] - single dose syringe 2022-01-31 15:24:00 Completed [facility] Flucelvax - single dose syringe Flucelvax - single dose syringe 2022-01-31 15:24:00 Completed [facility] Moderna COVID-19 Vaccine Moderna COVID-19 Vaccine 2020-09-03 11:38:00 Completed [facility] Moderna COVID-19 Vaccine Moderna COVID-19 Vaccine 2020-09-03 11:38:00 Completed [facility] Moderna COVID-19 Vaccine Moderna COVID-19 Vaccine 2020-09-03 11:38:00 Completed [facility] Moderna COVID-19 Vaccine Moderna COVID-19 Vaccine 2020-09-03 11:38:00 Completed [facility] Moderna COVID-19 Vaccine Moderna COVID-19 Vaccine 2020-09-03 11:38:00 Completed [facility] Moderna COVID-19 Vaccine Moderna COVID-19 Vaccine 2020-09-03 11:38:00 Completed [facility] Moderna COVID-19 Vaccine Moderna COVID-19 Vaccine 2020-09-03 11:38:00 Completed [facility] Moderna COVID-19 Vaccine Moderna COVID-19 Vaccine 2020-09-03 11:38:00 Completed [facility] Afluria Afluria 2020-01-29 10:05:00 Completed [facility] Afluria Afluria 2020-01-29 10:05:00 Completed [facility] Afluria Afluria 2020-01-29 10:05:00 Completed [facility] Afluria Afluria 2020-01-29 10:05:00 Completed [facility] Afluria Afluria 2020-01-29 10:05:00 Completed [facility] Afluria Afluria 2020-01-29 10:05:00 Completed [facility] Afluria Afluria 2020-01-29 10:05:00 Completed [facility] Afluria Afluria 2020-01-29 10:05:00 Completed [facility] FluAD FluAD 2018-11-08 09:31:00 Completed [facility] FluAD FluAD 2018-11-08 09:31:00 Completed [facility] FluAD FluAD 2018-11-08 09:31:00 Completed [facility] FluAD FluAD 2018-11-08 09:31:00 Completed [facility] FluAD FluAD 2018-11-08 09:31:00 Completed [facility] FluAD FluAD 2018-11-08 09:31:00 Completed [facility] FluAD FluAD 2018-11-08 09:31:00 Completed [facility] FluAD FluAD 2018-11-08 09:31:00 Completed [facility] FluAD FluAD 2018-11-08 00:00:00 Completed [facility] FLUZONE HIGH DOSE OVER 65 FLUZONE HIGH DOSE OVER 65 2017-10-31 12:06:00 Completed [facility] FLUZONE HIGH DOSE OVER 65 FLUZONE HIGH DOSE OVER 65 2017-10-31 12:06:00 Completed [facility] FLUZONE HIGH DOSE OVER 65 FLUZONE HIGH DOSE OVER 65 2017-10-31 12:06:00 Completed [facility] FLUZONE HIGH DOSE OVER 65 FLUZONE HIGH DOSE OVER 65 2017-10-31 12:06:00 Completed [facility] FLUZONE HIGH DOSE OVER 65 FLUZONE HIGH DOSE OVER 65 2017-10-31 12:06:00 Completed [facility] FLUZONE HIGH DOSE OVER 65 FLUZONE HIGH DOSE OVER 65 2017-10-31 12:06:00 Completed [facility] FLUZONE HIGH DOSE OVER 65 FLUZONE HIGH DOSE OVER 65 2017-10-31 12:06:00 Completed [facility] FLUZONE HIGH DOSE OVER 65 FLUZONE HIGH DOSE OVER 65 2017-10-31 12:06:00 Completed [facility] FLUZONE HIGH DOSE OVER 65 FLUZONE HIGH DOSE OVER 65 Unknown Completed [facility] Prevnar 20 (PCV20) Prevnar 20 (PCV20) Unknown Completed [facility] Moderna COVID-19 Vaccine Moderna COVID-19 Vaccine Unknown Completed [facility] Fluarix (IIV4) - SDS - 0.5mL Fluarix (IIV4) - SDS - 0.5mL Unknown Completed [facility] FluAD FluAD Unknown Completed [facility] Afluria Afluria Unknown Completed [facility] Flucelvax (ccIIV4) - SDS - 0.5mL Flucelvax (ccIIV4) - SDS - 0.5mL Unknown Completed [facility] FLUZONE HIGH DOSE OVER 65 FLUZONE HIGH DOSE OVER 65 Unknown Completed [facility] Prevnar 20 (PCV20) Prevnar 20 (PCV20) Unknown Completed [facility] Moderna COVID-19 Vaccine Moderna COVID-19 Vaccine Unknown Completed [facility] Fluarix (IIV4) - SDS - 0.5mL Fluarix (IIV4) - SDS - 0.5mL Unknown Completed [facility] FluAD FluAD Unknown Completed [facility] Afluria Afluria Unknown Completed [facility] Flucelvax (ccIIV4) - SDS - 0.5mL Flucelvax (ccIIV4) - SDS - 0.5mL Unknown Completed [facility] FLUZONE HIGH DOSE OVER 65 FLUZONE HIGH DOSE OVER 65 Unknown Completed [facility] Prevnar 20 (PCV20) Prevnar 20 (PCV20) Unknown Completed [facility] Moderna COVID-19 Vaccine Moderna COVID-19 Vaccine Unknown Completed [facility] Fluarix (IIV4) - SDS - 0.5mL Fluarix (IIV4) - SDS - 0.5mL Unknown Completed [facility] FluAD FluAD Unknown Completed [facility] Afluria Afluria Unknown Completed [facility] Flucelvax (ccIIV4) - SDS - 0.5mL Flucelvax (ccIIV4) - SDS - 0.5mL Unknown Completed [facility] FLUZONE HIGH DOSE OVER 65 FLUZONE HIGH DOSE OVER 65 Unknown Completed [facility] Prevnar 20 (PCV20) Prevnar 20 (PCV20) Unknown Completed [facility] Moderna COVID-19 Vaccine Moderna COVID-19 Vaccine Unknown Completed [facility] Fluarix (IIV4) - SDS - 0.5mL Fluarix (IIV4) - SDS - 0.5mL Unknown Completed [facility] FluAD FluAD Unknown Completed [facility] Afluria Afluria Unknown Completed [facility] Flucelvax (ccIIV4) - SDS - 0.5mL Flucelvax (ccIIV4) - SDS - 0.5mL Unknown Completed [facility] FLUZONE HIGH DOSE OVER 65 FLUZONE HIGH DOSE OVER 65 Unknown Completed [facility] Prevnar 20 (PCV20) Prevnar 20 (PCV20) Unknown Completed [facility] Moderna COVID-19 Vaccine Moderna COVID-19 Vaccine Unknown Completed [facility] Fluarix (IIV4) - SDS - 0.5mL Fluarix (IIV4) - SDS - 0.5mL Unknown Completed [facility] FluAD FluAD Unknown Completed [facility] Afluria Afluria Unknown Completed [facility] Flucelvax (ccIIV4) - SDS - 0.5mL Flucelvax (ccIIV4) - SDS - 0.5mL Unknown Completed [facility] FLUZONE HIGH DOSE OVER 65 FLUZONE HIGH DOSE OVER 65 Unknown Completed [facility] Prevnar 20 (PCV20) Prevnar 20 (PCV20) Unknown Completed [facility] Moderna COVID-19 Vaccine Moderna COVID-19 Vaccine Unknown Completed [facility] Fluarix (IIV4) - SDS - 0.5mL Fluarix (IIV4) - SDS - 0.5mL Unknown Completed [facility] FluAD FluAD Unknown Completed [facility] Afluria Afluria Unknown Completed [facility] Flucelvax (ccIIV4) - SDS - 0.5mL Flucelvax (ccIIV4) - SDS - 0.5mL Unknown Completed [facility] FLUZONE HIGH DOSE OVER 65 FLUZONE HIGH DOSE OVER 65 Unknown Completed [facility] Prevnar 20 (PCV20) Prevnar 20 (PCV20) Unknown Completed [facility] Moderna COVID-19 Vaccine Moderna COVID-19 Vaccine Unknown Completed [facility] Fluarix (IIV4) - SDS - 0.5mL Fluarix (IIV4) - SDS - 0.5mL Unknown Completed [facility] FluAD FluAD Unknown Completed [facility] Afluria Afluria Unknown Completed [facility] Flucelvax (ccIIV4) - SDS - 0.5mL Flucelvax (ccIIV4) - SDS - 0.5mL Unknown Completed [facility] FLUZONE HIGH DOSE OVER 65 FLUZONE HIGH DOSE OVER 65 Unknown Completed [facility] Prevnar 20 (PCV20) Prevnar 20 (PCV20) Unknown Completed [facility] Moderna COVID-19 Vaccine Moderna COVID-19 Vaccine Unknown Completed [facility] Fluarix (IIV4) - SDS - 0.5mL Fluarix (IIV4) - SDS - 0.5mL Unknown Completed [facility] FluAD FluAD Unknown Completed [facility] Afluria Afluria Unknown Completed [facility] Flucelvax (ccIIV4) - SDS - 0.5mL Flucelvax (ccIIV4) - SDS - 0.5mL Unknown Completed [facility] FLUZONE HIGH DOSE OVER 65 FLUZONE HIGH DOSE OVER 65 Unknown Completed [facility] Prevnar 20 (PCV20) Prevnar 20 (PCV20) [facility]-19 Vaccine Unknown Completed [facility] Fluarix (IIV4) - SDS - 0.5mL Fluarix (IIV4) - SDS - 0.5mL Unknown Completed [facility] FluAD FluAD Unknown Completed [facility] Afluria Afluria Unknown Completed [facility] Flucelvax (ccIIV4) - SDS - 0.5mL Flucelvax (ccIIV4) - SDS - 0.5mL Unknown Completed [facility] FLUZONE HIGH DOSE OVER 65 FLUZONE HIGH DOSE OVER 65 Unknown Completed [facility] Prevnar 20 (PCV20) Prevnar 20 (PCV20) Unknown [facility] Vacc[facility] Moderna COVID-19 Vaccine Unknown Completed [facility] Fluarix Fluarix Unknown Completed [facility] FluAD FluAD Unknown Completed [facility] Afluria Afluria Unknown Completed [facility] Flucelvax - single dose syringe Flucelvax - single dose syringe Unknown Completed [facility] FLUZONE HIGH DOSE OVER 65 FLUZONE HIGH DOSE OVER 65 Unknown Completed [facility] Prevnar 20 (PCV20) Prevnar 20 (PCV20) Unknown Completed [facility] Moderna COVID-19 Vaccine Moderna COVID-19 Vaccine Unknown Completed [facility] Fluarix Fluarix Unknown Completed [facility] FluAD FluAD Unknown Completed [facility] Afluria Afluria Unknown Completed [facility] Flucelvax - single dose syringe Flucelvax - single dose syringe Unknown Completed [facility] FLUZONE HIGH DOSE OVER 65 FLUZONE HIGH DOSE OVER 65 Unknown Completed [facility] Prevnar 20 (PCV20) Prevnar 20 (PCV20) [facility] Modern[facility] COVID-19 Vaccine Unknown Completed [facility] Fluarix Fluarix Unknown Completed [facility] FluAD FluAD Unknown Completed [facility] Afluria Afluria Unknown Completed [facility] Flucelvax - single dose syringe Flucelvax - single dose syringe Unknown Completed [facility] FLUZONE HIGH DOSE OVER 65 FLUZONE HIGH DOSE OVER 65 Unknown Completed [facility] Prevnar 20 (PCV20) Prevnar 20 (PCV20) Unknown Completed [facility] Moderna COVID-19 Vaccine Moderna COVID-19 Vaccine Unknown Completed [facility] Fluarix (IIV4) - SDS - 0.5mL Fluarix (IIV4) - SDS - 0.5mL Unknown Completed [facility] FluAD FluAD Unknown Completed [facility] Afluria Afluria Unknown Completed [facility] Flucelvax (ccIIV4) - SDS - 0.5mL Flucelvax (ccIIV4) - SDS - 0.5mL Unknown Completed [facility] FLUZONE HIGH DOSE OVER 65 FLUZONE HIGH DOSE OVER 65 Unknown Completed [facility] Prevnar 20 (PCV20) Prevnar 20 (PCV20) Unknown Completed [facility] Moderna COVID-19 Vaccine Moderna COVID-19 Vaccine Unknown Completed [facility] Fluarix (IIV4) - SDS - 0.5mL Fluarix (IIV4) - SDS - 0.5mL Unknown Completed [facility] FluAD FluAD Unknown Completed [facility] Afluria Afluria Unknown Completed [facility] Flucelvax (ccIIV4) - SDS - 0.5mL Flucelvax (ccIIV4) - SDS - 0.5mL Unknown Completed [facility] FLUZONE HIGH DOSE OVER 65 FLUZONE HIGH DOSE OVER 65 Unknown Completed [facility] Prevnar 20 (PCV20) Prevnar 20 (PCV20) Unknown Completed [facility] Moderna COVID-19 Vaccine Moderna COVID-19 Vaccine Unknown Completed [facility] Fluarix (IIV4) - SDS - 0.5mL Fluarix (IIV4) - SDS - 0.5mL Unknown Completed [facility] FluAD FluAD Unknown Completed [facility] Afluria Afluria Unknown Completed [facility] Flucelvax (ccIIV4) - SDS - 0.5mL Flucelvax (ccIIV4) - SDS - 0.5mL Unknown Completed [facility] FLUZONE HIGH DOSE OVER 65 FLUZONE HIGH DOSE OVER 65 Unknown Completed [facility] Prevnar 20 (PCV20) Prevnar 20 (PCV20) Unknown Completed [facility] Moderna COVID-19 Vaccine Moderna COVID-19 Vaccine Unknown Completed [facility] Fluarix (IIV4) - SDS - 0.5mL Fluarix (IIV4) - SDS - 0.5mL Unknown Completed [facility] FluAD FluAD Unknown Completed [facility] Afluria Afluria Unknown Completed [facility] Flucelvax (ccIIV4) - SDS - 0.5mL Flucelvax (ccIIV4) - SDS - 0.5mL Unknown Completed [facility] FLUZONE HIGH DOSE OVER 65 FLUZONE HIGH DOSE OVER 65 Unknown Completed [facility] Prevnar 20 (PCV20) Prevnar 20 (PCV20) Unknown Completed [facility] Moderna COVID-19 Vaccine Moderna COVID-19 Vaccine Unknown Completed [facility] Fluarix (IIV4) - SDS - 0.5mL Fluarix (IIV4) - SDS - 0.5mL Unknown Completed [facility] FluAD FluAD Unknown Completed [facility] Afluria Afluria Unknown Completed [facility] Flucelvax (ccIIV4) - SDS - 0.5mL Flucelvax (ccIIV4) - SDS - 0.5mL Unknown Completed [facility] FLUZONE HIGH DOSE OVER 65 FLUZONE HIGH DOSE OVER 65 Unknown Completed [facility] Prevnar 20 (PCV20) Prevnar 20 (PCV20) Unknown Completed [facility] Moderna COVID-19 Vaccine Moderna COVID-19 Vaccine Unknown Completed [facility] Fluarix (IIV4) - SDS - 0.5mL Fluarix (IIV4) - SDS - 0.5mL Unknown Completed [facility] FluAD FluAD Unknown Completed [facility] Afluria Afluria Unknown Completed [facility] Flucelvax (ccIIV4) - SDS - 0.5mL Flucelvax (ccIIV4) - SDS - 0.5mL Unknown Completed [facility] FLUZONE HIGH DOSE OVER 65 FLUZONE HIGH DOSE OVER 65 Unknown Completed [facility] Prevnar 20 (PCV20) Prevnar 20 (PCV20) Unknown Completed [facility] Moderna COVID-19 Vaccine Moderna COVID-19 Vaccine Unknown Completed [facility] Fluarix (IIV4) - SDS - 0.5mL Fluarix (IIV4) - SDS - 0.5mL Unknown Completed [facility] FluAD FluAD Unknown Completed [facility] Afluria Afluria Unknown Completed [facility] Flucelvax (ccIIV4) - SDS - 0.5mL Flucelvax (ccIIV4) - SDS - 0.5mL Unknown Completed [facility] FLUZONE HIGH DOSE OVER 65 FLUZONE HIGH DOSE OVER 65 Unknown Completed [facility] Prevnar 20 (PCV20) Prevnar 20 (PCV20) Unknown Completed [facility] Moderna COVID-19 Vaccine Moderna COVID-19 Vaccine Unknown Completed [facility] Fluarix (IIV4) - SDS - 0.5mL Fluarix (IIV4) - SDS - 0.5mL Unknown Completed [facility] FluAD FluAD Unknown Completed [facility] Afluria Afluria Unknown Completed [facility] Flucelvax (ccIIV4) - SDS - 0.5mL Flucelvax (ccIIV4) - SDS - 0.5mL Unknown Completed [facility] FLUZONE HIGH DOSE OVER 65 FLUZONE HIGH DOSE OVER 65 Unknown Completed [facility] Prevnar 20 (PCV20) Prevnar 20 (PCV20) Unknown Completed [facility] Moderna COVID-19 Vaccine Moderna COVID-19 Vaccine Unknown Completed [facility] Fluarix (IIV4) - SDS - 0.5mL Fluarix (IIV4) - SDS - 0.5mL Unknown Completed [facility] FluAD FluAD Unknown Completed [facility] Afluria Afluria Unknown Completed [facility] Flucelvax (ccIIV4) - SDS - 0.5mL Flucelvax (ccIIV4) - SDS - 0.5mL Unknown Completed [facility] FLUZONE HIGH DOSE OVER 65 FLUZONE HIGH DOSE OVER 65 Unknown Completed [facility] Prevnar 20 (PCV20) Prevnar 20 (PCV20) Unknown Completed [facility] Moderna COVID-19 Vaccine Moderna COVID-19 Vaccine Unknown Completed [facility] Fluarix (IIV4) - SDS - 0.5mL Fluarix (IIV4) - SDS - 0.5mL Unknown Completed [facility] FluAD FluAD Unknown Completed [facility] Afluria Afluria Unknown Completed [facility] Flucelvax (ccIIV4) - SDS - 0.5mL Flucelvax (ccIIV4) - SDS - 0.5mL Unknown Completed [facility] FLUZONE HIGH DOSE OVER 65 FLUZONE HIGH DOSE OVER 65 Unknown Completed [facility] Prevnar 20 (PCV20) Prevnar 20 (PCV20) Unknown Completed [facility] Moderna COVID-19 Vaccine Moderna COVID-19 Vaccine Unknown Completed [facility] Fluarix (IIV4) - SDS - 0.5mL Fluarix (IIV4) - SDS - 0.5mL Unknown Completed [facility] FluAD FluAD Unknown Completed [facility] Afluria Afluria Unknown Completed [facility] Flucelvax (ccIIV4) - SDS - 0.5mL Flucelvax (ccIIV4) - SDS - 0.5mL Unknown Completed [facility] FLUZONE HIGH DOSE OVER 65 FLUZONE HIGH DOSE OVER 65 Unknown Completed [facility] Prevnar 20 (PCV20) Prevnar 20 (PCV20) Unknown Completed [facility] Moderna COVID-19 Vaccine Moderna COVID-19 Vaccine Unknown Completed [facility] Fluarix (IIV4) - SDS - 0.5mL Fluarix (IIV4) - SDS - 0.5mL Unknown Completed [facility] FluAD FluAD Unknown Completed [facility] Afluria Afluria Unknown Completed [facility] Flucelvax (ccIIV4) - SDS - 0.5mL Flucelvax (ccIIV4) - SDS - 0.5mL Unknown Completed [facility] FLUZONE HIGH DOSE OVER 65 FLUZONE HIGH DOSE OVER 65 Unknown Completed [facility] Prevnar 20 (PCV20) Prevnar 20 (PCV20) Unknown Completed [facility] Moderna COVID-19 Vaccine Moderna COVID-19 Vaccine Unknown Completed [facility] Fluarix (IIV4) - SDS - 0.5mL Fluarix (IIV4) - SDS - 0.5mL Unknown Completed [facility] FluAD FluAD Unknown Completed [facility] Afluria Afluria Unknown Completed [facility] Flucelvax (ccIIV4) - SDS - 0.5mL Flucelvax (ccIIV4) - SDS - 0.5mL Unknown Completed [facility] FLUZONE HIGH DOSE OVER 65 FLUZONE HIGH DOSE OVER 65 Unknown Completed [facility] Prevnar 20 (PCV20) Prevnar 20 (PCV20) Unknown Completed [facility] Moderna COVID-19 Vaccine Moderna COVID-19 Vaccine Unknown Completed [facility] Fluarix (IIV4) - SDS - 0.5mL Fluarix (IIV4) - SDS - 0.5mL Unknown Completed [facility] FluAD FluAD Unknown Completed [facility] Afluria Afluria Unknown Completed [facility] Flucelvax (ccIIV4) - SDS - 0.5mL Flucelvax (ccIIV4) - SDS - 0.5mL Unknown Completed [facility] FLUZONE HIGH DOSE OVER 65 FLUZONE HIGH DOSE OVER 65 Unknown Completed [facility] Prevnar 20 (PCV20) Prevnar 20 (PCV20) Unknown Completed [facility] Moderna COVID-19 Vaccine Moderna COVID-19 Vaccine Unknown Completed [facility] Fluarix (IIV4) - SDS - 0.5mL Fluarix (IIV4) - SDS - 0.5mL Unknown Completed [facility] FluAD FluAD Unknown Completed [facility] Afluria Afluria Unknown Completed [facility] Flucelvax (ccIIV4) - SDS - 0.5mL Flucelvax (ccIIV4) - SDS - 0.5mL Unknown Completed [facility] FLUZONE HIGH DOSE OVER 65 FLUZONE HIGH DOSE OVER 65 Unknown Completed [facility] Prevnar 20 (PCV20) Prevnar 20 (PCV20) Unknown Completed [facility] Moderna COVID-19 Vaccine Moderna COVID-19 Vaccine Unknown Completed [facility] Fluarix (IIV4) - SDS - 0.5mL Fluarix (IIV4) - SDS - 0.5mL Unknown Completed [facility] FluAD FluAD Unknown Completed [facility] Afluria Afluria Unknown Completed [facility] Flucelvax (ccIIV4) - SDS - 0.5mL Flucelvax (ccIIV4) - SDS - 0.5mL Unknown Completed [facility] FLUZONE HIGH DOSE OVER 65 FLUZONE HIGH DOSE OVER 65 Unknown Completed [facility] Prevnar 20 (PCV20) Prevnar 20 (PCV20) Unknown Completed [facility] Moderna COVID-19 Vaccine Moderna COVID-19 Vaccine Unknown Completed [facility] Fluarix (IIV4) - SDS - 0.5mL Fluarix (IIV4) - SDS - 0.5mL Unknown Completed [facility] FluAD FluAD Unknown Completed [facility] Afluria Afluria Unknown Completed [facility] Flucelvax (ccIIV4) - SDS - 0.5mL Flucelvax (ccIIV4) - SDS - 0.5mL Unknown Completed [facility] FLUZONE HIGH DOSE OVER 65 FLUZONE HIGH DOSE OVER 65 Unknown Completed [facility] Prevnar 20 (PCV20) Prevnar 20 (PCV20) Unknown Completed [facility] Moderna COVID-19 Vaccine Moderna COVID-19 Vaccine Unknown Completed [facility] Fluarix (IIV4) - SDS - 0.5mL Fluarix (IIV4) - SDS - 0.5mL Unknown Completed [facility] FluAD FluAD Unknown Completed [facility] Afluria Afluria Unknown Completed [facility] Flucelvax (ccIIV4) - SDS - 0.5mL Flucelvax (ccIIV4) - SDS - 0.5mL Unknown Completed [facility] FLUZONE HIGH DOSE OVER 65 FLUZONE HIGH DOSE OVER 65 Unknown Completed [facility] Prevnar 20 (PCV20) Prevnar 20 (PCV20) Unknown Completed [facility] Moderna COVID-19 Vaccine Moderna COVID-19 Vaccine Unknown Completed [facility] Fluarix (IIV4) - SDS - 0.5mL Fluarix (IIV4) - SDS - 0.5mL Unknown Completed [facility] FluAD FluAD Unknown Completed [facility] Afluria Afluria Unknown Completed [facility] Flucelvax (ccIIV4) - SDS - 0.5mL Flucelvax (ccIIV4) - SDS - 0.5mL Unknown Completed [facility] FLUZONE HIGH DOSE OVER 65 FLUZONE HIGH DOSE OVER 65 Unknown Completed [facility] Prevnar 20 (PCV20) Prevnar 20 (PCV20) Unknown Completed [facility] Moderna COVID-19 Vaccine Moderna COVID-19 Vaccine Unknown Completed [facility] Fluarix (IIV4) - SDS - 0.5mL Fluarix (IIV4) - SDS - 0.5mL Unknown Completed [facility] FluAD FluAD Unknown Completed [facility] Afluria Afluria Unknown Completed [facility] Flucelvax (ccIIV4) - SDS - 0.5mL Flucelvax (ccIIV4) - SDS - 0.5mL Unknown Completed [facility] FLUZONE HIGH DOSE OVER 65 FLUZONE HIGH DOSE OVER 65 Unknown Completed [facility] Prevnar 20 (PCV20) Prevnar 20 (PCV20) Unknown Completed [facility] Moderna COVID-19 Vaccine Moderna COVID-19 Vaccine Unknown Completed [facility] Fluarix (IIV4) - SDS - 0.5mL Fluarix (IIV4) - SDS - 0.5mL Unknown Completed [facility] FluAD FluAD Unknown Completed [facility] Afluria Afluria Unknown Completed [facility] Flucelvax (ccIIV4) - SDS - 0.5mL Flucelvax (ccIIV4) - SDS - 0.5mL Unknown Completed [facility] FLUZONE HIGH DOSE OVER 65 FLUZONE HIGH DOSE OVER 65 Unknown Completed [facility] Prevnar 20 (PCV20) Prevnar 20 (PCV20) Unknown Completed [facility] Moderna COVID-19 Vaccine Moderna COVID-19 Vaccine Unknown Completed [facility] Fluarix (IIV4) - SDS - 0.5mL Fluarix (IIV4) - SDS - 0.5mL Unknown Completed [facility] FluAD FluAD Unknown Completed [facility] Afluria Afluria Unknown Completed [facility] Flucelvax (ccIIV4) - SDS - 0.5mL Flucelvax (ccIIV4) - SDS - 0.5mL Unknown Completed [facility] FLUZONE HIGH DOSE OVER 65 FLUZONE HIGH DOSE OVER 65 Unknown Completed [facility] Prevnar 20 (PCV20) Prevnar 20 (PCV20) Unknown Completed [facility] Moderna COVID-19 Vaccine Moderna COVID-19 Vaccine Unknown Completed [facility] Fluarix (IIV4) - SDS - 0.5mL Fluarix (IIV4) - SDS - 0.5mL Unknown Completed [facility] FluAD FluAD Unknown Completed [facility] Afluria Afluria Unknown Completed [facility] Flucelvax (ccIIV4) - SDS - 0.5mL Flucelvax (ccIIV4) - SDS - 0.5mL Unknown Completed [facility] FLUZONE HIGH DOSE OVER 65 FLUZONE HIGH DOSE OVER 65 Unknown Completed [facility] Prevnar 20 (PCV20) Prevnar 20 (PCV20) Unknown Completed [facility] Moderna COVID-19 Vaccine Moderna COVID-19 Vaccine Unknown Completed [facility] Fluarix (IIV4) - SDS - 0.5mL Fluarix (IIV4) - SDS - 0.5mL Unknown Completed [facility] FluAD FluAD Unknown Completed [facility] Afluria Afluria Unknown Completed [facility] Flucelvax (ccIIV4) - SDS - 0.5mL Flucelvax (ccIIV4) - SDS - 0.5mL Unknown Completed [facility] FLUZONE HIGH DOSE OVER 65 FLUZONE HIGH DOSE OVER 65 Unknown Completed [facility] Prevnar 20 (PCV20) Prevnar 20 (PCV20) Unknown Completed [facility] Moderna COVID-19 Vaccine Moderna COVID-19 Vaccine Unknown Completed [facility] Fluarix (IIV4) - SDS - 0.5mL Fluarix (IIV4) - SDS - 0.5mL Unknown Completed [facility] FluAD FluAD Unknown Completed [facility] Afluria Afluria Unknown Completed [facility] Flucelvax (ccIIV4) - SDS - 0.5mL Flucelvax (ccIIV4) - SDS - 0.5mL Unknown Completed [facility] FLUZONE HIGH DOSE OVER 65 FLUZONE HIGH DOSE OVER 65 Unknown Completed [facility] Prevnar 20 (PCV20) Prevnar 20 (PCV20) Unknown Completed [facility] Moderna COVID-19 Vaccine Moderna COVID-19 Vaccine Unknown Completed [facility] Fluarix (IIV4) - SDS - 0.5mL Fluarix (IIV4) - SDS - 0.5mL Unknown Completed [facility] FluAD FluAD Unknown Completed [facility] Afluria Afluria Unknown Completed [facility] Flucelvax (ccIIV4) - SDS - 0.5mL Flucelvax (ccIIV4) - SDS - 0.5mL Unknown Completed [facility] FLUZONE HIGH DOSE OVER 65 FLUZONE HIGH DOSE OVER 65 Unknown Completed [facility] Prevnar 20 (PCV20) Prevnar 20 (PCV20) Unknown Completed [facility] Moderna COVID-19 Vaccine Moderna COVID-19 Vaccine Unknown Completed [facility] Fluarix (IIV4) - SDS - 0.5mL Fluarix (IIV4) - SDS - 0.5mL Unknown Completed [facility] FluAD FluAD Unknown Completed [facility] Afluria Afluria Unknown Completed [facility] Flucelvax (ccIIV4) - SDS - 0.5mL Flucelvax (ccIIV4) - SDS - 0.5mL Unknown Completed [facility] FLUZONE HIGH DOSE OVER 65 FLUZONE HIGH DOSE OVER 65 Unknown Completed [facility] Prevnar 20 (PCV20) Prevnar 20 (PCV20) Unknown Completed [facility] Moderna COVID-19 Vaccine Moderna COVID-19 Vaccine Unknown Completed [facility] Fluarix (IIV4) - SDS - 0.5mL Fluarix (IIV4) - SDS - 0.5mL Unknown Completed [facility] FluAD FluAD Unknown Completed [facility] Afluria Afluria Unknown Completed [facility] Flucelvax (ccIIV4) - SDS - 0.5mL Flucelvax (ccIIV4) - SDS - 0.5mL Unknown Completed [facility] FLUZONE HIGH DOSE OVER 65 FLUZONE HIGH DOSE OVER 65 Unknown Completed [facility] Prevnar 20 (PCV20) Prevnar 20 (PCV20) [facility] Modern[facility]-19 Vaccine Unknown Completed [facility] Fluarix (IIV4) - SDS - 0.5mL Fluarix (IIV4) - SDS - 0.5mL Unknown Completed [facility] FluAD FluAD Unknown Completed [facility] Afluria Afluria Unknown Completed [facility] Flucelvax (ccIIV4) - SDS - 0.5mL Flucelvax (ccIIV4) - SDS - 0.5mL Unknown Completed [facility] Vital Signs Vital Name Observation Time Observation Value Comments S ource height 2023-08-31 08:40:00 68 [in_i] Commo n [facility] weight 2023-08-31 08:40:00 167.5 [lb_av] Co mmon [facility] temperature 2023-08-31 08:40:00 98.2 [degF] Com mon [facility] bmi 2023-08-31 08:40:00 25.47 kg/m2 Comm on [facility] oximetry 2023-08-31 08:40:00 99 % Commo n [facility] respiratory rate 2023-08-31 08:40:00 16 /min Common [facility] blood pressure systolic 2023-08-31 08:40:00 114 mm[Hg] [facility] blood pressure diastolic 2023-08-31 08:40:00 71 mm[Hg] [facility] height 2023-06-11 07:40:00 68 [in_i] Commo n [facility] weight 2023-06-11 07:40:00 165 [lb_av] Comm on [facility] temperature 2023-06-11 07:40:00 98.6 [degF] Com mon [facility] bmi 2023-06-11 07:40:00 25.09 kg/m2 Comm on [facility] height 2023-05-17 08:50:00 68 [in_i] Commo n [facility] weight 2023-05-17 08:50:00 220.0 [lb_av] Co mmon [facility] temperature 2023-05-17 08:50:00 97.4 [degF] Com [facility] bmi 2023-05-17 08:50:00 33.45 kg/m2 Comm on [facility] oximetry 2023-05-17 08:50:00 99 % Commo n [facility] respiratory rate 2023-05-17 08:50:00 17 /min Common [facility] blood pressure systolic 2023-05-17 08:50:00 126 mm[Hg] [facility] blood pressure diastolic 2023-05-17 08:50:00 69 mm[Hg] [facility] height 2023-05-17 08:50:00 68 [in_i] Commo n [facility] weight 2023-05-17 08:50:00 220.0 [lb_av] Co mmon [facility] temperature 2023-05-17 08:50:00 97.4 [degF] Com mon [facility] bmi 2023-05-17 08:50:00 33.45 kg/m2 Comm on [facility] oximetry 2023-05-17 08:50:00 99 % Commo n [facility] respiratory rate 2023-05-17 08:50:00 17 /min Common [facility] blood pressure systolic 2023-05-17 08:50:00 126 mm[Hg] Common [facility] blood pressure diastolic 2023-05-17 08:50:00 69 mm[Hg] Common [facility] height 2023-04-02 08:00:00 68 [in_i] Commo n [facility] weight 2023-04-02 08:00:00 220 [lb_av] Comm on [facility] bmi 2023-04-02 08:00:00 33.45 kg/m2 Comm on [facility] Body Weight 2023-03-20 00:00:00 167 [lb_av] [facility] Height 2023-03-20 00:00:00 68 [in_i] [facility] BMI (Body Mass Index) 2023-03-20 00:00:00 25.4 kg/m2 [facility] height 2023-03-09 09:00:00 68 [in_i] Commo n [facility] weight 2023-03-09 09:00:00 221 [lb_av] Comm on [facility] bmi 2023-03-09 09:00:00 33.6 kg/m2 Commo n [facility] height 2022-11-21 09:20:00 68 [in_i] Commo n [facility] weight 2022-11-21 09:20:00 221.0 [lb_av] Co mmon [facility] temperature 2022-11-21 09:20:00 97.4 [degF] Com mon [facility] bmi 2022-11-21 09:20:00 33.6 kg/m2 Commo n [facility] oximetry 2022-11-21 09:20:00 99 % Commo n [facility] respiratory rate 2022-11-21 09:20:00 18 /min Common [facility] blood pressure systolic 2022-11-21 09:20:00 130 mm[Hg] [facility] blood pressure diastolic 2022-11-21 09:20:00 72 mm[Hg] [facility] height 2022-11-09 09:00:00 68 [in_i] Commo n [facility] weight 2022-11-09 09:00:00 221 [lb_av] Comm on [facility] temperature 2022-11-09 09:00:00 98.4 [degF] Com [facility] bmi 2022-11-09 09:00:00 33.6 kg/m2 Commo n [facility] blood pressure systolic 2022-11-09 09:00:00 130 mm[Hg] [facility] blood pressure diastolic 2022-11-09 09:00:00 74 mm[Hg] [facility] height 2022-11-07 13:20:00 68 [in_i] Commo n [facility] weight 2022-11-07 13:20:00 220 [lb_av] Comm on [facility] temperature 2022-11-07 13:20:00 98.3 [degF] Com [facility] bmi 2022-11-07 13:20:00 33.45 kg/m2 Comm on [facility] oximetry 2022-11-07 13:20:00 99 % Commo n [facility] respiratory rate 2022-11-07 13:20:00 16 /min [facility] blood pressure systolic 2022-11-07 13:20:00 126 mm[Hg] Common [facility] blood pressure diastolic 2022-11-07 13:20:00 78 mm[Hg] [facility] height 2022-10-09 09:20:00 68 [in_i] Commo n [facility] weight 2022-10-09 09:20:00 220 [lb_av] Comm on [facility] temperature 2022-10-09 09:20:00 97.0 [degF] Com mon [facility] bmi 2022-10-09 09:20:00 33.45 kg/m2 Comm on [facility] oximetry 2022-10-09 09:20:00 97 % Commo n [facility] respiratory rate 2022-10-09 09:20:00 17 /min [facility] blood pressure systolic 2022-10-09 09:20:00 117 mm[Hg] [facility] blood pressure diastolic 2022-10-09 09:20:00 72 mm[Hg] Common [facility] height 2022-08-21 13:30:00 68 [in_i] Commo n [facility] weight 2022-08-21 13:30:00 220 [lb_av] Comm on [facility] temperature 2022-08-21 13:30:00 97.3 [degF] Com [facility] bmi 2022-08-21 13:30:00 33.45 kg/m2 Comm on [facility] oximetry 2022-08-21 13:30:00 99 % Commo n [facility] respiratory rate 2022-08-21 13:30:00 17 /min [facility] blood pressure systolic 2022-08-21 13:30:00 137 mm[Hg] [facility] blood pressure diastolic 2022-08-21 13:30:00 73 mm[Hg] [facility] height 2022-08-21 13:00:00 68 [in_i] Commo n [facility] weight 2022-08-21 13:00:00 220 [lb_av] Comm on [facility] temperature 2022-08-21 13:00:00 97.3 [degF] Com mon [facility] bmi 2022-08-21 13:00:00 33.45 kg/m2 Comm on [facility] oximetry 2022-08-21 13:00:00 99 % Commo n [facility] respiratory rate 2022-08-21 13:00:00 17 /min [facility] blood pressure systolic 2022-08-21 13:00:00 137 mm[Hg] [facility] blood pressure diastolic 2022-08-21 13:00:00 73 mm[Hg] [facility] height 2021-12-12 08:20:00 68 [in_i] Commo n [facility] weight 2021-12-12 08:20:00 220 [lb_av] Comm on [facility] bmi 2021-12-12 08:20:00 33.45 kg/m2 Comm on [facility] Height 2021-12-12 00:00:00 68 [in_i] [facility] BMI (Body Mass Index) 2021-12-12 00:00:00 33.5 kg/m2 [facility] Body Weight 2021-12-12 00:00:00 220 [lb_av] [facility] height 2021-09-28 08:00:00 68 [in_i] Commo n [facility] weight 2021-09-28 08:00:00 220 [lb_av] Comm on [facility] temperature 2021-09-28 08:00:00 99.1 [degF] Com mon [facility] bmi 2021-09-28 08:00:00 33.45 kg/m2 Comm on [facility] blood pressure systolic 2021-09-28 08:00:00 125 mm[Hg] [facility] blood pressure diastolic 2021-09-28 08:00:00 70 mm[Hg] [facility] height 2021-08-15 09:30:00 68 [in_i] Commo n [facility] weight 2021-08-15 09:30:00 195 [lb_av] Comm on [facility] bmi 2021-08-15 09:30:00 29.65 kg/m2 Comm on [facility] blood pressure systolic 2021-08-15 09:30:00 112 mm[Hg] [facility] blood pressure diastolic 2021-08-15 09:30:00 79 mm[Hg] [facility] height 2021-07-18 08:30:00 68 [in_i] Commo n [facility] weight 2021-07-18 08:30:00 195 [lb_av] Comm on [facility] temperature 2021-07-18 08:30:00 97.7 [degF] Com mon [facility] bmi 2021-07-18 08:30:00 29.65 kg/m2 Comm on [facility] blood pressure systolic 2021-07-18 08:30:00 130 mm[Hg] [facility] blood pressure diastolic 2021-07-18 08:30:00 72 mm[Hg] [facility] height 2021-06-30 10:15:00 68 [in_i] Commo n [facility] weight 2021-06-30 10:15:00 195 [lb_av] Comm on [facility] bmi 2021-06-30 10:15:00 29.65 kg/m2 Comm on [facility] blood pressure systolic 2021-06-30 10:15:00 130 mm[Hg] [facility] blood pressure diastolic 2021-06-30 10:15:00 72 mm[Hg] [facility] height 2021-03-11 08:00:00 68 [in_i] Commo n [facility] weight 2021-03-11 08:00:00 200 [lb_av] Comm on [facility] temperature 2021-03-11 08:00:00 97.8 [degF] Com mon [facility] bmi 2021-03-11 08:00:00 30.41 kg/m2 Comm on [facility] Procedures Procedure Date / Time Performed Performing Clinician Source XR, knee, 1 or 2 view 2023-03-20 00:00:00 [facility] [id number] 2022-12-20 00:00:00 [facility] [id number] 2022-12-20 00:00:00 [facility] [id number] 2022-12-20 00:00:00 [facility] [id number] 2022-12-18 00:00:00 [facility] [id number] 2022-12-18 00:00:00 [facility] [id number] 2022-12-18 00:00:00 [facility] XR, knee, 4 or more view 2021-12-12 00:00:00 [facility] Hyste[facility] Encounters Start Date/Time End Date/Time Encounter Type Admission Type Attending Clinicians Care Facility Care Department Encounter ID Source 2023-12-06 11:33:00 Outpatient OdinbannerSonal cuenca [facility] [id number] [facility] 2023-12-04 10:10:00 Outpatient Sonal [place] [facility] [id number] [facility] 2023-11-16 12:10:00 Outpatient Sonal [place] [facility] [id number] [facility] 2023-09-17 15:14:00 Outpatient Sonal [place] [facility] [id number] [facility] 2023-08-28 10:08:00 Outpatient Sonal [place] [facility] [id number] [facility] 2023-08-03 09:26:00 Outpatient Sonal [place] [facility] [id number] [facility] 2023-08-01 09:06:00 Outpatient Sonal [place] [facility] [id number] [facility] 2023-07-05 15:33:00 Outpatient Sonal [place] STLMLC STLMLC [id number] [facility] 2023-06-07 14:25:00 Outpatient Bhakta, Nikolay STLMLC STLMLC [id number] [facility] 2023-05-16 08:42:00 Outpatient Bhakta, Nikolay STLMLC STLMLC [id number] [facility] 2023-05-15 08:08:00 Outpatient Bhakta, Nikolay STLMLC STLMLC [id number] [facility] 2023-03-07 08:28:00 Outpatient Bhakta, Nikolay STLMLC STLMLC [id number] [facility] 2023-03-05 11:04:00 Outpatient Bhakta, Nikolay STLMLC STLMLC [id number] [facility] 2022-12-19 10:04:00 Outpatient Bhakta, Nikolay STLMLC STLMLC [id number] [facility] 2022-11-09 11:20:00 Outpatient Bhakta, Nikolay STLMLC STLMLC [id number] [facility] 2022-11-07 14:39:00 Outpatient Bhakta, Nikolay STLMLC STLMLC [id number] [facility] 2022-11-02 10:30:00 Outpatient BhaktaNikolay hernandez STLMLC STLMLC [id number] [facility] 2022-09-06 09:05:00 Outpatient Nikolay Bhakta STLMLC STLMLC [id number] [facility] 2022-08-14 09:39:00 Outpatient Nikolay Bhakta STLMLC STLMLC [id number] [facility] 2022-08-02 13:42:00 Outpatient Ofelia KHALIL STLMLC STLMLC [id number] [facility] 2022-06-26 09:37:01 Outpatient Ofelia Khalil STLMLC STLMLC [id number] [facility] 2022-02-22 12:30:00 Inpatient Carlie Garrido HCATO HCATO [id number] [facility] 2022-01-27 09:45:01 Outpatient Good, Na STLMLC STLMLC [id number] [facility] 2022-01-03 08:06:00 Outpatient Latisha Na STLMLC STLMLC [id number] [facility] 2021-12-08 08:08:00 Outpatient Good, Na STLMLC STLMLC [id number] [facility] 2021-10-04 11:22:00 Outpatient Good, Na STLMLC STLMLC [id number] [facility] 2021-09-26 09:17:00 Outpatient Good, Na STLMLC STLMLC [id number] [facility] 2021-08-23 09:54:00 Outpatient Good, Na STLMLC STLMLC [id number] [facility] 2021-06-27 08:14:00 Outpatient Good, Na STLMLC STLMLC [id number] [facility] 2021-06-24 11:35:01 Outpatient Jannette Good STLMLC STLMLC [id number] [facility] 2021-06-07 10:43:00 Outpatient Jannette Good STLMLC STLMLC [id number] [facility] 2021-05-18 16:35:00 Outpatient Jannette Good STLMLC STLMLC [id number] [facility] 2021-03-23 14:34:30 Outpatient Jannette Good STLMLC STLMLC [id number] [facility] 2021-03-23 14:00:26 Outpatient Jannette Good STLMLC STLMLC [id number] [facility] 2021-03-23 13:58:30 Outpatient Jannette Good STLMLC STLMLC [id number] [facility] 2021-03-23 13:57:22 Outpatient Jannette Good STLMLC STLMLC [id number] [facility] 2021-03-23 13:23:44 Outpatient Jannette Good STLMLC STLMLC [id number] [facility] 2021-03-23 12:45:34 Outpatient Jannette Good STLMLC STLMLC [id number] [facility] 2021-03-23 12:36:03 Outpatient Jannette Good STLMLC STLMLC [id number] [facility] 2021-03-23 12:21:11 Outpatient Jannette Good STLMLC STLMLC [id number] [facility] 2021-03-23 12:09:34 Outpatient Jannette Good STLMLC STLMLC [id number] [facility] 2021-03-23 11:58:50 Outpatient Good, Na STLMLC STLMLC [id number] [facility] 2021-03-23 11:33:44 Outpatient Good, Na STLMLC STLMLC [id number] [facility] 2021-03-23 11:31:40 Outpatient Good, Na STLMLC STLMLC [id number] [facility] 2021-03-23 11:18:14 Outpatient Good, Na STLMLC STLMLC [id number] [facility] 2021-03-23 11:16:56 Outpatient Latisha Na STLMLC STLMLC [id number] [facility] 2023-12-10 00:00:00 2023-12-10 00:00:00 (TEL) STLMLC STLMLC [id number] [facility] 2023-12-06 00:00:00 2023-12-06 00:00:00 OFFICE VISIT ESTAB PT LEVEL 4 STLMLC STLMLC [id number] [facility] 2023-12-06 00:00:00 2023-12-06 00:00:00 (TEL) STLMLC STLMLC [id number] [facility] 2023-11-28 00:00:00 2023-11-28 00:00:00 (TEL) STLMLC STLMLC [id number] [facility] 2023-11-16 00:00:00 2023-11-16 00:00:00 (TEL) STLMLC STLMLC [id number] [facility] 2023-11-14 00:00:00 2023-11-14 00:00:00 (TEL) STLMLC STLMLC [id number] [facility] 2023-09-13 00:00:00 2023-09-13 00:00:00 (TEL) STLMLC STLMLC [id number] [facility] 2023-09-12 00:00:00 2023-09-12 00:00:00 (TEL) STLMLC STLMLC [id number] [facility] 2023-09-12 00:00:00 2023-09-12 00:00:00 (TEL) STLMLC STLMLC [id number] [facility] 2023-09-07 00:00:00 2023-09-07 00:00:00 (TEL) STLMLC STLMLC [id number] [facility] 2023-08-31 00:00:00 2023-08-31 00:00:00 OFFICE VISIT ESTAB PT LEVEL 4 STLMLC STLMLC [id number] [facility] 2023-08-31 00:00:00 2023-08-31 00:00:00 (TEL) STLMLC STLMLC [id number] [facility] 2023-08-10 00:00:00 2023-08-10 00:00:00 (TEL) STLMLC STLMLC [id number] [facility] 2023-08-07 00:00:00 2023-08-07 00:00:00 (TEL) STLMLC STLMLC [id number] [facility] 2023-08-03 00:00:00 2023-08-03 00:00:00 OFFICE VISIT ESTAB PT LEVEL 3 STLMLC STLMLC [id number] [facility] 2023-08-03 00:00:00 2023-08-03 00:00:00 (TEL) STLMLC STLMLC [id number] [facility] 2023-08-03 00:00:00 2023-08-03 00:00:00 (TEL) STLMLC STLMLC [id number] [facility] 2023-07-24 00:00:00 2023-07-24 00:00:00 (TEL) STLMLC STLMLC [id number] [facility] 2023-07-16 00:00:00 2023-07-16 00:00:00 (TEL) STLMLC STLMLC [id number] [facility] 2023-07-13 00:00:00 2023-07-13 00:00:00 (TEL) STLMLC STLMLC [id number] [facility] 2023-07-11 00:00:00 2023-07-11 00:00:00 (TEL) STLMLC STLMLC [id number] [facility] 2023-07-11 00:00:00 2023-07-11 00:00:00 (TEL) STLMLC STLMLC [id number] [facility] 2023-07-09 00:00:00 2023-07-09 00:00:00 (TEL) STLMLC STLMLC [id number] [facility] 2023-07-06 00:00:00 2023-07-06 00:00:00 (TEL) STLMLC STLMLC [id number] [facility] 2023-07-06 00:00:00 2023-07-06 00:00:00 OFFICE VISIT NEW PT LEVEL 4 STLMLC STLMLC [id number] [facility] 2023-07-06 00:00:00 2023-07-06 00:00:00 (TEL) STLMLC STLMLC [id number] [facility] 2023-07-05 00:00:00 2023-07-05 00:00:00 (TEL) STLMLC STLMLC [id number] [facility] 2023-06-28 00:00:00 2023-06-28 00:00:00 (TEL) STLMLC STLMLC [id number] [facility] 2023-06-25 00:00:00 2023-06-25 00:00:00 (TEL) STLMLC STLMLC [id number] [facility] 2023-06-25 00:00:00 2023-06-25 00:00:00 (TEL) STLMLC STLMLC [id number] [facility] 2023-06-20 00:00:00 2023-06-20 00:00:00 (TEL) STLMLC STLMLC [id number] [facility] 2023-06-14 00:00:00 2023-06-14 00:00:00 (TEL) STLMLC STLMLC [id number] [facility] 2023-06-11 00:00:00 2023-06-11 00:00:00 (EST. VIDEO) EST VIRTUAL VIDEO VISIT STLMLC STLMLC [id number] [facility] 2023-06-07 00:00:00 2023-06-07 00:00:00 (TEL) STLMLC STLMLC [id number] [facility] 2023-06-07 00:00:00 2023-06-07 00:00:00 (TEL) STLMLC STLMLC [id number] [facility] 2023-05-17 00:00:00 2023-05-17 00:00:00 OFFICE VISIT ESTAB PT LEVEL 4 STLMLC STLMLC [id number] [facility] 2023-05-17 00:00:00 2023-05-17 00:00:00 SUB ANNUAL [facility] WELLNESS VISIT STLMLC STLMLC [id number] [facility] 2023-05-17 00:00:00 2023-05-17 00:00:00 (TEL) STLMLC STLMLC [id number] [facility] 2023-05-10 00:00:00 2023-05-10 00:00:00 (TEL) STLMLC STLMLC [id number] [facility] 2023-04-02 00:00:00 2023-04-02 00:00:00 OFFICE VISIT ESTAB PT LEVEL 3 STLMLC STLMLC [id number] [facility] 2023-03-30 00:00:00 2023-03-30 00:00:00 (TEL) STLMLC STLMLC [id number] [facility] 2023-03-29 00:00:00 2023-03-29 00:00:00 (TEL) [facility] [id number] [facility] 2023-03-20 00:00:00 2023-03-20 00:00:00 Ian Monzon MD: [address] [place] [phone] , Ph. [phone] [facility] [place] [facility] [place] [facility] [place] [id number] [facility] 2023-03-09 00:00:00 2023-03-09 00:00:00 (TEL) [facility] [id number] [facility] 2023-03-09 00:00:00 2023-03-09 00:00:00 (EST. VIDEO) EST VIRTUAL VIDEO VISIT [facility] [id number] [facility] 2023-03-07 00:00:00 2023-03-07 00:00:00 Outpatient FOG_Behlisa _Robin AOSM AO [id number] [facility] 2023-03-05 00:00:00 2023-03-05 00:00:00 (TEL) [facility] [id number] [facility] 2023-02-23 00:00:00 2023-02-23 00:00:00 Outpatient FOG_Behlisa _Robin AOSM AOSM [id number] [facility] 2023-02-20 00:00:00 2023-02-20 00:00:00 (TEL) [facility] [id number] [facility] 2023-01-01 00:00:00 2023-01-01 00:00:00 Outpatient FOG_Burke_R obJamaica AOSM AOSM [id number] [facility] 2023-01-01 00:00:00 2023-01-01 00:00:00 Outpatient FOG_Burke_R obdenis_ AOSM AOSM [id number] [facility] 2023-01-01 00:00:00 2023-01-01 00:00:00 Outpatient FOG_Burkmarlin_Ricardo Rainey AOSM AOSM [id number] [facility] 2022-12-25 00:00:00 2022-12-25 00:00:00 Outpatient GC_GCBZW_Ka diyala_S PRIV PRIV [id number] [facility] 2022-12-24 00:00:00 2022-12-24 00:00:00 Outpatient GC_GCBZW_Ka diyala_S PRIV PRIV [id number] [facility] 2022-12-20 15:46:00 2022-12-21 16:12:00 Inpatient Jose Kerrhan HCATO SURG [id number] [facility] 2022-12-08 16:36:00 2022-12-08 16:36:00 Outpatient Ian Monzon HCACL LABO [id number] [facility] 2022-10-10 08:00:00 2022-12-08 16:00:00 Outpatient Carlie Simmons HCATO LABO [id number] [facility] 2022-12-08 10:50:00 2022-12-08 10:50:00 Outpatient Aisha Kerrnathan HCATO RADI [id number] [facility] 2022-11-29 00:00:00 2022-11-29 00:00:00 Outpatient FOG_Burke_R Redd AOSM AOSM [id number] [facility] 2022-11-29 00:00:00 2022-11-29 00:00:00 Outpatient FOG_Burke_R Redd AOSM AOSM [id number] [facility] 2022-11-29 00:00:00 2022-11-29 00:00:00 Outpatient FOG_Burke_R Redd AOSM AOSM [id number] [facility] 2022-11-29 00:00:00 2022-11-29 00:00:00 Outpatient FOG_Burke_R obJamaica AOSM AOSM [id number] [facility] 2022-11-29 00:00:00 2022-11-29 00:00:00 Outpatient FOG_Burke_R obertHAVEN AOSM AOSM [id number] [facility] 2022-11-29 00:00:00 2022-11-29 00:00:00 Outpatient FOG_Burke_R obertHAVEN AOSM AOSM [id number] [facility] 2022-11-29 00:00:00 2022-11-29 00:00:00 Outpatient FOG_Burke_R obJamaica AOSM AOSM [id number] [facility] 2022-11-23 00:00:00 2022-11-23 00:00:00 (TEL) [facility] [id number] [facility] 2022-11-21 00:00:00 2022-11-21 00:00:00 [id number] 2022-11-14 00:00:00 2022-11-14 00:00:00 (TEL) [facility] [id number] [facility] 2022-11-13 00:00:00 2022-11-13 00:00:00 Outpatient FOG_Burke_R obertHAVEN AOSM AOSM [id number] [facility] 2022-11-13 00:00:00 2022-11-13 00:00:00 Outpatient FOG_Burke_R obertHAVEN AOSM AOSM [id number] [facility] 2022-11-13 00:00:00 2022-11-13 00:00:00 Outpatient FOG_Burke_Ricardo Rainey AOSM AO [id number] [facility] 2022-11-13 00:00:00 2022-11-13 00:00:00 (TEL) STLMLC STLMLC [id number] [facility] 2022-11-09 00:00:00 2022-11-09 00:00:00 OFFICE VISIT NEW PT LEVEL 3 STLMLC STLMLC [id number] [facility] 2022-11-07 00:00:00 2022-11-07 00:00:00 OFFICE VISIT ESTAB PT LEVEL 4 STLMLC STLMLC [id number] [facility] 2022-11-07 00:00:00 2022-11-07 00:00:00 (TEL) STLMLC STLMLC [id number] [facility] 2022-11-02 00:00:00 2022-11-02 00:00:00 (TEL) STLMLC STLMLC [id number] [facility] 2022-10-10 17:10:00 2022-10-10 17:10:00 Outpatient Carlie Garrido HCACL LABO [id number] 67 [facility] 2022-10-10 08:00:00 2022-10-10 09:00:00 Outpatient Ian Kerr HCATO 3DAY [id number] 76 [facility] 2022-10-09 00:00:00 2022-10-09 00:00:00 Outpatient FOG_Mukul_Ricardo Rainey AOSM AOSM [id number] [facility] 2022-10-09 00:00:00 2022-10-09 00:00:00 Outpatient FOG_Mukul_Ricardo Rainey AOSM AOSM [id number] [facility] 2022-10-09 00:00:00 2022-10-09 00:00:00 OFFICE VISIT ESTAB PT LEVEL 4 STLMLC STLMLC [id number] [facility] 2022-10-06 00:00:00 2022-10-06 00:00:00 (TEL) [facility] [id number] [facility] 2022-09-06 00:00:00 2022-09-06 00:00:00 (TEL) [facility] [id number] [facility] 2022-09-05 00:00:00 2022-09-05 00:00:00 Outpatient FOG_Olinda Rainey AOSM AO [id number] [facility] 2022-08-21 00:00:00 2022-08-21 00:00:00 OFFICE VISIT ESTAB PT LEVEL 4 [facility] [id number] [facility] 2022-08-21 00:00:00 2022-08-21 00:00:00 SUB ANNUAL [facility] WELLNESS VISIT [facility] [id number] [facility] 2022-02-08 00:00:00 2022-02-08 00:00:00 (TEL) [facility] [id number] [facility] 2022-01-05 00:00:00 2022-01-05 00:00:00 Outpatient FOG_Mukul_Ricardo Rainey AOSM AOSM [id number] [facility] 2022-01-05 00:00:00 2022-01-05 00:00:00 Outpatient FOG_Olinda Rainey AOSM AOSM [id number] [facility] 2022-01-05 00:00:00 2022-01-05 00:00:00 Outpatient FOG_Olinda Rainey AOSM AOSM [id number] [facility] 2021-12-16 00:00:00 2021-12-16 00:00:00 Outpatient FOG_BurkeJonathanR Redd AOSM AOSM [id number] [facility] 2021-12-14 00:00:00 2021-12-14 00:00:00 (TEL) [facility] [id number] [facility] 2021-12-12 00:00:00 2021-12-12 00:00:00 Outpatient FOG_Burkmarlin_Ricardo Rainey AO AO [id number] [facility] 2021-12-12 00:00:00 2021-12-12 00:00:00 OFFICE VISIT ESTAB PT LEVEL 4 [facility] [id number] [facility] 2021-12-12 00:00:00 2021-12-12 00:00:00 Carlie Garrido MD: [address] [place] [phone] , Ph. [phone] [facility] [place] - F[facility] [id number] [facility] 2021-12-11 00:00:00 2021-12-11 00:00:00 Outpatient FOG_Olinda Rainey AO AO [id number] [facility] 2021-12-09 00:00:00 2021-12-09 00:00:00 (TEL) [facility] [id number] [facility] 2021-11-02 00:00:00 2021-11-02 00:00:00 Outpatient FOG_BurkLencho Rainey AOSM AOSM [id number] [facility] 2021-09-28 00:00:00 2021-09-28 00:00:00 OFFICE VISIT ESTAB PT LEVEL 4 [facility] [id number] [facility] 2021-09-12 12:59:00 2021-09-12 12:59:00 Outpatient FOG_BurkeJr Rainey AOSM AOSM [id number] [facility] 2021-08-24 00:00:00 2021-08-24 00:00:00 (TEL) STLMLC STLMLC [id number] [facility] 2021-08-15 00:00:00 2021-08-15 00:00:00 OFFICE VISIT EST PT LEVEL 3 STLMLC STLMLC [id number] [facility] 2021-07-18 00:00:00 2021-07-18 00:00:00 OFFICE VISIT EST PT LEVEL 3 STLMLC STLMLC [id number] [facility] 2021-07-06 00:00:00 2021-07-06 00:00:00 (TEL) STLMLC STLMLC [id number] [facility] 2021-06-30 00:00:00 2021-06-30 00:00:00 OFFICE VISIT NEW PT LEVEL 3 STLMLC STLMLC [id number] [facility] 2021-06-29 00:00:00 2021-06-29 00:00:00 OL DIG E/M SVC 21+ MIN STLMLC STLMLC [id number] [facility] 2021-06-24 00:00:00 2021-06-24 00:00:00 (TEL) STLMLC STLMLC [id number] [facility] 2021-03-11 00:00:00 2021-03-11 00:00:00 OFFICE VISIT ESTAB PT LEVEL 4 STLMLC STLMLC [id number] [facility] 2020-12-03 00:00:00 2020-12-03 00:00:00 OFFICE VISIT ESTAB PT LEVEL 4 STLMLC STLMLC [id number] [facility] 2020-10-06 00:00:00 2020-10-06 00:00:00 (TEL) STLMLC STLMLC [id number] [facility] 2020-09-03 00:00:00 2020-09-03 00:00:00 Outpatient STLMLC STLMLC [id number] [facility] 2020-09-03 00:00:00 2020-09-03 00:00:00 Outpatient STLMLC STLMLC [id number] [facility] 2020-08-23 00:00:00 2020-08-23 00:00:00 (TEL) STLMLC STLMLC [id number] [facility] 2020-06-28 00:00:00 2020-06-28 00:00:00 Outpatient STLMLC STLMLC [id number] [facility] 2020 00:00:00 2020 00:00:00 Outpatient STLMLC STLMLC [id number] [facility] 2020-01-29 00:00:00 2020-01-29 00:00:00 Outpatient STLMLC STLMLC [id number] [facility] 2020-01-29 00:00:00 2020-01-29 00:00:00 Outpatient STLMLC STLMLC [id number] [facility] 2019-09-15 00:00:00 2019-09-15 00:00:[facility] [id number] [facility] 2019-06-16 08:40:00 2019-06-16 08:40:00 [facility] [id number] [facility] 2019-05-30 15:47:00 2019-05-30 15:47:00 [facility] [id number] [facility] 2019-02-07 08:40:00 2019-02-07 08:40:00 [facility] [id number] [facility] 2019-01-30 16:14:00 2019-01-30 16:14:00 [facility] [id number] [facility] 2018-11-08 08:40:00 2018-11-08 08:40:00 [facility] [id number] [facility] 2018-10-22 08:20:00 2018-10-22 08:20:00 Outpatient [facility] [id number] [facility] 2018-05-06 08:30:00 2018-05-06 08:30:00 Outpatient [facility] [id number] [facility] Results Test Description Test Time Test Comments Results Result Co mments Source - XR KNEE 1 OR 2 V [id number] 10:07:[facility] 1960 Sex: F Patient Name: YOUNG FIGUEROA Unit No: [id number] EXAMS: CPT CODE: [id number] XR KNEE 1 OR 2 [place] [address]75 IMAGES PROVIDED: 2 FINDINGS: Postoperative changes from right total knee arthoplasty demonstrated without evidence of immediate complication. No acute fracture is visualized. IMPRESSION: Postoperative exam as above. at 1007 Re ported and signed by: Brendon Delgadillo M.D. CC: Ian Monzon MD Technologist: RAFFI PEREZ ARRT Transcribed D/ (1007) [facility] [address] [facility] [address] PHYS: Ian Mix MD : 1960 AGE: 62 SEX: F [place] [address] LOC: Y.504 A PHONE #: [phone] EXAM DATE: 12/18/2022 STATUS: ADM IN FAX #: [phone] RAD #: D/C DT PAGE 1 Signed Report Patient Name: YOUNG FIGUEROA Unit No:[id number] EXAMS: CPT CODE: [id number] XR KNEE 1 OR 2 V RT [id number] (Continued) Orig Print D/T: S: 12/20/2022 (0735) [facility] NAME: YOUNG FIGUEROA [address] [facility] [address] PHYS: Ian Mix MD : 1960 AGE: 62 SEX: F [place] [address] LOC: YAndrew A PHONE #: [phone] EXAM DATE: 12/18/2022 STATUS: ADM IN FAX #: [phone] RAD #: D/C DT PAGE 2 Signed ReportHGB HCT 2022-12-19 06:02:00* Test Item Value Reference Range Interpretation Comme nts HEMOGLOBIN (test code = HGB) 9.2 g/dL 12-16 L HEMATOCRIT (test code = HCT) 27.5 % 37-47 L SPECIMEN COMMENT: POD #1- US EXTREM NON VASC [id number] 08:06:00 [facility] : 1960 Sex: F Patient Name: YOUNG FIGUEROA Unit No: [id number] EXAMS: CPT CODE: [id number] US EXTREM NON VASC COMP 59542 TECHNIQUE: Callaway scale and Doppler sonographic evaluation [...] EASLEY RDMS, RVT Transcribed D/ (0806) [facility] [address] [facility] PHYS: UNDEFINED - Undefined Provider : 1960 AGE: 62 SEX: F [place] [address] LOC: Y.RAD PHONE #: [phone] EXAM DATE: 12/08/2022 STATUS: DEP CLI FAX #: [phone] RAD #: D/C DT PAGE 1 Signed Report Patient Name:YOUNG FIGUEROA Unit No: [id number] EXAMS: CPT CODE: [id number] US EXTREM NON VASC COMP 04743 (Continued) Orig Print D/T: S: 12/11/2022 (0809) [facility] NAME: YOUNG FIGUEROA [address] [facility] PHYS: UNDEFINED - Undefined Provider : 1960 AGE: 62 SEX: F [place] [address] LOC: Y.RAD PHONE #: [phone] EXAM DATE: 12/08/2022 STATUS: DEP CLI FAX #: [phone] RAD #: D/C DT PAGE 2 Signed [...] fructosamineshould be considered for these patients.DONE AT: [facility] [address] [place] [address] GLYCOSYLATED HEMOGLOBIN (HA1C)2022-12-08 21:01:00* Test Item Value [...] be considered for these patients. COMPREHENSIVE METABOLIC [id number] 14:03:00* Test Item Value Reference Range Interpretation [...] ALKP) 109 U/L 46-116 N C REACTIVE [id number] 14:02:00* Test Item Value Reference Range Interpretation Comme nts C REACTIVE PROTEIN (test code = CRP) 2.54 mg/dL < 0.3 H Please note ne w normal range. CBC W/AUTO [id number] 12:24:00* Test Item Value Reference Range Interpretation [...] = NRBC) 0 % 0-0 N PROTHROMBIN [id number] 12:24:00* Test Item Value Reference Range Interpretation [...] intravascular valves IS PATIENT ON ANTICOAGULANTS ? [facility] been notified if Patient is on Heparin Drip? NOTHROMBOPLASTIN TIME [id number] 12:24:00* Test Item Value Reference Range Interpretation Comme nts PTT ACTIVATED (test code = APTT) 33.5 secs 25.1-36.5 N IS PATIENT ON ANTICOAGULANTS ? [facility] been notified if Patient is on Heparin Drip? NOCBC W/AUTO [id number] 00:00:00* Test Item Value Reference Range Interpretation Comme nts NUCLEATED RBCS (test code = 95314-9) 0.0 /100 WBC'S See_Comment [Automated [employer] [employer]] The system which generated this result transmitted reference range: 0.0 /100 WBC'S. The reference range was not used to interpret this result as normal/abnormal. ABSOLUTE EOSINOPHILS (test code = 48092-0) 0.00 K/UL See_Comment [Automated [employer]] The system which generated this result transmitted reference range: 0.00-0.50 K/UL. The reference range was not used to interpret this result as normal/abnormal. ABSOLUTE LYMPHOCYTES (test code = 59966-8) 1.46 K/UL See_Comment [Automated [employer]] The system which generated this result transmitted reference range: 1.00-4.00 K/UL. The reference range was not used to interpret this result as normal/abnormal. ABSOLUTE MONOCYTES (test code = 36602-5) 0.71 K/UL See_Comment [Automated [employer]] The system which generated this result transmitted reference range: 0.20-1.00 K/UL. The reference range was not used to interpret this result as normal/abnormal. ABSOLUTE NEUTROPHILS (test code = 03247-9) 6.05 K/UL See_Comment [Automated [employer]] The system which generated this result transmitted reference range: 1.50-7.50 K/UL. The reference range was not used to interpret this result as normal/abnormal. BASOPHILS (test code = 76159-8) 0.6 % EOSINOPHILS (test code = 20979-3) 0.0 % HEMATOCRIT (test code = 69059-4) 37.6 % See_Comment [Automated [employer]] The system which generated this result transmitted reference range: 34.0-45.0 %. The reference range was not used to interpret this result as normal/abnormal. HEMOGLOBIN (test code = 718-7) 12.7 G/DL See_Comment [Automated messa ge] The system which generated this result transmitted reference range: 11.5-15.5 G/DL. The reference range was not used to interpret this result as normal/abnormal. LYMPHOCYTES (test code = 57249-9) 17.6 % MCH (test code = 16603-3) 32.0 PG See_Comment [Automated messa ge] The system which generated this result transmitted reference range: 25.0-33.0 PG. The reference range was not used to interpret this result as normal/abnormal. MCHC (test code = 11025-3) 33.8 G/DL See_Comment [Automated messa ge] The system which generated this result transmitted reference range: 31.0-36.0 G/DL. The reference range was not used to interpret this result as normal/abnormal. MCV (test code = 23238-4) 94.7 fL See_Comment [Automated messa ge] The system which generated this result transmitted reference range: 80.0-99.0 fL. The reference range was not used to interpret this result as normal/abnormal. MONOCYTES (test code = 37551-0) 8.6 % NEUTROPHILS (test code = 71719-8) 72.8 % PLATELET COUNT (test code = 43939-8) 329 K/UL See_Comment [Automated messa ge] The system which generated this result transmitted reference range: 130-400 K/UL. The reference range was not used to interpret this result as normal/abnormal. RBC (test code = 06325-1) 3.97 M/UL See_Comment [Automated messa ge] The system which generated this result transmitted reference range: 3.80-5.40 M/UL. The reference range was not used to interpret this result as normal/abnormal. RDW (test code = 68734-8) 14.5 % See_Comment [Automated messa ge] The system which generated this result transmitted reference range: 11.5-15.0 %. The reference range was not used to interpret this result as normal/abnormal. WBC (test code = 31944-0) 8.3 K/UL See_Comment [Automated messa ge] The system which generated this result transmitted reference range: 3.5-11.0 K/UL. The reference range was not used to interpret this result as normal/abnormal. COMPREHENSIVE METABOLIC [id number] 14:27:00* Test Item Value Reference Range Interpretation [...] = ALKP) 81 U/L 46-116 N PROTHROMBIN [id number] 13:31:00* Test Item Value Reference Range Interpretation [...] intravascular valves IS PATIENT ON ANTICOAGULANTS ? [facility] been notified if Patient is on Heparin Drip? NOTHROMBOPLASTIN TIME [id number] 13:31:00* Test Item Value Reference Range Interpretation Comme nts PTT ACTIVATED (test code = APTT) 37.0 secs 25.1-36.5 H IS PATIENT ON ANTICOAGULANTS ? [facility] been notified if Patient is on Heparin Drip? NOCBC W/AUTO [id number] 13:05:00* Test Item Value Reference Range Interpretation [...] Notes Date/Time Note Provider Source 2023-01-25 12:51:00 [facility] Discharge Summary REPORT#:[id number] REPORT STATUS: Signed REPORT INITIALIZATION DATE:01/25/23 TIME: 1251 PATIENT: YOUNG FIGUEROA UNIT #: [id number] ROOM/BED: [address] : [birth year] AGE: 62 SEX: F [...] 12/21/22 Discharge diagnosis: Right distal femur fracture, orutsararmiut knee fusion Hospital course: Discharge Diagnosis: Right Knee distal femur fracture, orutsararmiut knee fusion s/p complex right distal femoral [...] Will undergo PT for gait training, mobilization, almtv-ub-vzvedg, and strengthening. Patient was informed that they need to arrange for therapy as quickly as possible. The importance of early advancement of yipjw-vx-otiqoz with home exercises, and physical therapy was [...] SCHEDULE A FOLLOW-UP APPOINTMENT at 1256 RPT #:[id number] END OF REPORT [facility] 2022-12-21 09:29:00 [facility] Clinical Note REPORT#:[id number] REPORT STATUS: Signed REPORT INITIALIZATION DATE:12/21/22 TIME: 928 PATIENT: YOUNG FIGUEROA UNIT #: [id number] ROOM/BED: [address] : 62 AGE: 62 SEX: F ATTEND: Ian Monzon MD ADM AUTHOR: Miguel Angel Howe MD REPT SERVICE DT/TIME: 12/21/22928 * ALL edits or amendments must be made on the electronic/computer document * Clinical Note Note: [facility] Miguel Angel Kenney M.D. (cell text [phone]) Assessment/Plan 1.) Anemia of acute blood loss- [...] Miguel Angel Kenney M.D. at 1052 RPT #:[id number] END OF REPORT [facility] 2022-12-21 08:27:00 [facility] Orthopaedic Progress Note REPORT#:[id number] REPORT STATUS: Signed REPORT INITIALIZATION DATE:12/21/22 TIME: 826 PATIENT: YOUNG FIGUEROA UNIT #: [id number] [facility] AGE: 62 SEX: F ATTEND: [...] 2 weeks for wound check at 0829 [facility] #:[id number] END OF REPORT [facility] 2022-12-20 14:04:00 [facility] DT Operative Note REPORT#:[id number] REPORT STATUS: Signed REPORT INITIALIZATION DATE:12/20/22 TIME: 1403 PATIENT: YOUNG FIGUEROA UNIT #: [id number] ROOM/BED: [address] : 61 AGE: 62 SEX: F ATTEND: Ian Monzon MD ADM AUTHOR: Ian Monzon MD REPT SERVICE DT/TIME: 12/18/22 140 * ALL edits or amendments must be made on the electronic/computer document * Operative Report Operative Note Note: Pre-procedure diagnosis: Subacute right comminuted distal femur fracture orutsararmiut knee fusion due to neglected tibial plateau fracture Post-procedure diagnosis: same as pre procedure dx (same ) Procedures performed: Right knee fusion takedown with radical resection of distal femur, excision of heterotopic ossification, complex primary knee arthroplasty to distal femoral replacing prosthesis Primary Surgeon: Ian Monzon MD Co-surgeon: Eun Bhakta MD Microsoft Developer(s): Alida Santana MD and Haim Nails Complications: [...] replacing prosthesis. Goals of the procedure include temple of joint stability and motion as well as pain control in the setting of significant deformity and altered anatomy. Manager Services: The skilled assistance of the food trades assistants surgeon was necessary during this reconstructive procedure. [...] possible without the help of a skilled food trades assistants familiar with the procedure and capable of [...] recovery in stable condition. at 1408 RPT #:[id number] END OF REPORT [facility] 2022-12-20 14:00:00 [facility] Orthopaedic Progress Note REPORT#:[id number] REPORT STATUS: Signed REPORT INITIALIZATION DATE:12/20/22 TIME: 1399 PATIENT: YOUNG FIGUEROA UNIT #: [id number] ROOM/BED: [address] : 61 AGE: 62 SEX: F [...] plan for tomorrow 12/21 at 1404 RPT #:[id number] END OF REPORT [facility] 2022-12-20 09:40:00 [facility] Clinical Note REPORT#:[id number] REPORT STATUS: Signed REPORT INITIALIZATION DATE:12/20/22 TIME: 939 PATIENT: YOUNG FIGUEROA UNIT #: [id number] ROOM/BED: [address] : 62 AGE: 62 SEX: F ATTEND: Ian Monzon MD ADM AUTHOR: Miguel Angel Howe MD REPT SERVICE DT/TIME: 12/20/22 09 * ALL edits or amendments must be made on the electronic/computer document * Clinical Note Note: [facility] Miguel Angel Kenney M.D. (cell text [phone]) Assessment/Plan 1.) Anemia of acute blood loss- [...] Miguel Angel Kenney M.D. at 1158 RPT #:[id number] END OF REPORT [facility] 2022-12-19 10:36:00 [facility] Orthopaedic Progress Note REPORT#:[id number] REPORT STATUS: Signed REPORT INITIALIZATION DATE:12/19/22 TIME: 103 PATIENT: YOUNG FIGUEROA UNIT #: [id number] ROOM/BED: [address] : 61 AGE: 62 SEX: F [...] therapy, likely tomorrow 12/20 at 1041 RPT #:[id number] END OF REPORT [facility] 2022-12-19 09:38:00 [facility] Clinical Note REPORT#:[id number] REPORT STATUS: Signed REPORT INITIALIZATION DATE:12/19/22 TIME: 937 PATIENT: YOUNG FIGUEROA UNIT #: [id number] ROOM/BED: Y[facility]-A : 62 AGE: 62 SEX: F ATTEND: Ian Monzon MD ADM AUTHOR: Miguel Angel Howe MD REPT SERVICE DT/TIME: 12/19/22937 * ALL edits or amendments must be made on the electronic/computer document * Clinical Note Note: [facility] Miguel Angel Kenney M.D. (cell text [phone]) Assessment/Plan 1.) Anemia of acute blood loss- [...] L Miguel Angel Kenney M.D. at 1038 [facility] #:[id number] END OF REPORT [facility] 2022-12-18 15:52:00 [facility] Clinical Note REPORT#:[id number] REPORT STATUS: Signed REPORT INITIALIZATION DATE:12/18/22 TIME: 1551 PATIENT: YOUNG FIGUEROA UNIT #: [id number] ROOM/BED: [address] : 61 AGE: 62 SEX: F ATTEND: Ian Monzon MD ADM AUTHOR: Miguel Angel Howe MD REPT SERVICE DT/TIME: 12/18/221551 * ALL edits or amendments must be made on the electronic/computer document * Clinical Note Note: [facility] Miguel Angel Kenney MD (cell text [phone]) Internal Medicine Consult at request of : Dr. Ian Monzon Chief Complaint: right distal femur fracture HPI: 62 yo F is now s/p Right knee fusion takedown, complex primary right knee arthroplasty to distal femur replacement by Dr. Monzon Ms. Figueroa has a h/o orutsararmiut knee fusion secondary to trauma and rheumatoid [...] discussion - default code status while at [facility]. at 2125 RPT #:[id number] END OF REPORT [facility] 2022-12-18 11:46:00 [facility] Brief Op Note REPORT#:[id number] REPORT STATUS: Signed REPORT INITIALIZATION DATE:12/18/22 TIME: 114 PATIENT: YOUNG FIGUEROA UNIT #: [id number] ROOM/BED: 998-1 : 62 AGE: 62 SEX: F ATTEND: Ian Monzon MD ADM AUTHOR: Ian Monzon MD REPT SERVICE DT/TIME: 12/18/22 1146 * ALL edits or amendments must be made on the electronic/computer document * Op/Inv Proc Note - Brief Pre-procedure diagnosis: R distal femur fracture, orutsararmiut knee fusion Post-procedure diagnosis: same as pre procedure dx (same ) Procedures performed: Right knee fusion takedown, complex primary knee arthroplasty to distal femoral replacement Primary Surgeon: Ian Monzon MD Co-surgeon: Eun Bhakta MD Microsoft Developer(s): Max CHAVARRIA and Haim Nails Findings: See dictated op note Complications: none Estimated blood loss in ml's: 150cc Specimens removed/altered: none (distal femur malunited fractur), distal femur malunited fracture Drain(s): Bang Catheter Placed Wound class: clean at 1155 RPT #:[id number] END OF REPORT [facility] 2022-10-10 11:27:00 [id number] [place] [address] PATIENT NAME: YOUNG FIGUEROA ADMIT DATE: ACCOUNT NO: [id number] ROOM NO: AGE: 62 REPORT TYPE: ELECTROCARDIOGRAM SEX: F ADMITTING PHYSICIAN: ATTENDING PHYSICIAN:Carlie Garrido MD Order: [id number] Test Reason : PRE OP CLEARANCE HTN [...] ECGs available Confirmed by WILLARD COOPER MD ([id number]) on 10/12/2022 12:28:11 PM Referred By: Carlie Garrido Confirmed by:WILLARD COOPER MD PATIENT NAME: YOUNG FIGUEROA [facility]
[2023-12-23] MEDS ORDERED: NA CHLORIDE 0.9% 100 ML ONE (09:41)
[2023-12-23] MEDS ORDERED: CEFTRIAXONE 2000 MG/VIAL ONE (09:41)
[2023-12-23 10:10] LABS: Specific Gravity 1.017 (1.005-1.030); Urine Bacteria 20-50 /HPF (<20); Urine Bilirubin NEGATIVE (Negative); Urine Blood 3+ (Negative); Urine Clarity Extremely Turbid (Clear); Urine Color Light-Orange (Yellow); Urine Culture Reflex Order REFLEXED; Urine Glucose NEGATIVE (Negative); Urine Ketones NEGATIVE (Negative); Urine Micro Reflex YN NO BILL MICROSCOPIC; Urine Mucus Slight /HPF (None Seen); Urine Nitrite NEGATIVE (Negative); Urine Protein 1+ (Negative); Urine RBC >50 /HPF (None Seen); Urine Urobilinogen Normal (Normal); Urine WBC >50 /HPF (<5); Urine WBC Clump Few /HPF (None Seen)
--- NOTE | 2023-12-23 10:10 | ER ---
Nurse's Notes [facility] Name: Young Gates Age: 63 yrs Sex: Female : 1960 Arrival Date: 12/23/2023 Time: 08:11 Bed 8 Private MD: Diagnosis: Leakage of urinary (indwelling) catheter;Dysuria-Fill prescription of UTI med as soon as possible Presentation: 12/22 08:17 Chief complaint: EMS states: Had urinary catheter replaced yesterday in ED, states, " I ph usually need a 20 Fr but they put in a 18 and it feels like it's leaking." Also reports burning sensation. BP elevated for MS but pt has not had morning BP medication, 10mg labetalol given IVP. Coronavirus screen: Vaccine status: Patient reports receiving the 2nd dose of the covid vaccine. Ebola Screen: No symptoms or risks identified at this time. Initial Sepsis Screen: Does the patient meet any 2 criteria? No. Patient's initial sepsis screen is negative. Does the patient have a suspected source of infection? No. Patient's initial sepsis screen is negative. Risk Assessment: Do you want to hurt yourself or someone else? Patient reports no desire to harm self or others. Onset of symptoms was December 23, 2023. 08:17 Method Of Arrival: EMS: [facility] 08:17 Acuity: KJ 3 ph Triage Assessment: 08:23 General: Appears in no apparent distress. Behavior is calm, cooperative. Pain: ph Complains of pain in groin. Neuro: Level of Consciousness is awake, alert, obeys commands, Oriented to person, place, time, situation. Cardiovascular: Capillary refill < 3 seconds in bilateral fingers Patient's skin is warm and dry. Respiratory: Airway is compromised Respiratory effort is even, unlabored, Respiratory pattern is regular, symmetrical. GI: No signs and/or symptoms were reported involving the gastrointestinal system. : Patton in place to gravity drainage Reports burning with urination. Derm: Skin is pink, warm \\T\\ dry. Historical: - Allergies: 08:23 Ampicillin; ph 08:23 Azithromycin; ph 08:23 Chocolate; ph 08:23 Lisinopril; ph 08:23 PENICILLINS; ph 08:23 SHELLFISH; ph - PMHx: 08:23 Arthritis; Cerebrovascular accident; chronic sacral pressure ulcer; ph Hypercholesterolemia; Hypertension; Hypothyroidism; Kidney stones; osteoarthritis; - PSHx: 08:23 Right knee replacement; ph - Immunization history:: Adult Immunizations unknown. - Infectious Disease History:: Denies. - Social history:: Smoking status: Patient denies any tobacco usage or history of. Screenin:24 [facility] ED Fall Risk Assessment (Adult) History of falling in the last 3 months, ph including since admission Yes- single mechanical fall (1 pt) Confusion or Disorientation No (0 pts) Intoxicated or Sedated No (0 pts) Impaired Gait Yes (1 pt) Mobility Assist Device Used Yes (1 pt) Altered Elimination Yes (1 pt) Score/Fall Risk Level 3 or more points = High Risk Oriented to surroundings, Maintained a safe environment, Hourly rounding (assess needs \\T\\ fall precautionary measures) done, Used ambulatory aids as needed (educated on \\T\\ assisted with). Abuse screen: Denies threats or abuse. Denies injuries from another. 08:24 Nutritional screening: No deficits noted. Tuberculosis screening: No symptoms or risk ph factors identified. Assessment: 09:00 General: SEE TRIAGE ASSESSMENT. ph 10:30 Reassessment: D/C pending transport home. ph 11:05 Reassessment: [facility] at bedside for transport, pt d/c home. ph Vital Signs: 08:17 BP 171 / 105; Pulse 72; Resp 18; Temp 98.1; Pulse Ox 99% ; Weight 75.75 kg; Height 5 ph ft. 8 in. ; 09:56 BP 158 / 92; Pulse 80; Resp 18; Pulse Ox 98% on R/A; ph 10:30 BP 148 / 92; Pulse 78; Resp 18; Temp 97.5; Pulse Ox 98% on R/A; ph 08:17 Body Mass Index 25.39 (75.75 kg, 172.72 cm) ph ED Course: 08:14 Patient arrived in ED. eb 08:16 Shivani Camejo, EUNICE is Primary Nurse. ph 08:17 Daryl Ruggiero MD is Attending Physician. bo1 08:22 Triage completed. ph 08:24 Arm band placed on Patient placed in an exam room, on a stretcher, on pulse oximetry. ph 08:25 Patient has correct armband on for positive identification. Bed in low position. Call ph light in reach. Side rails up X 1. Pulse ox on. NIBP on. Door closed. Noise minimized. Warm blanket given. 09:18 Patton cath inserted, using sterile technique, 20 Fr., by nj, balloon inflated, to ph gravity drainage, urine specimen collected. returned cloudy urine. Patient tolerated well. Maintain EMS IV. Dressing intact. Good blood return noted. Site clean \\T\\ dry. Gauge \\T\\ site: 22 R wrist. Flushed with 10 mL NS. 09:19 No provider procedures requiring assistance completed. ph 09:56 Urinalysis W/Microscopic Sent. ph :56 Urine collected: Patton catheter specimen, cloudy. ph 11:06 IV discontinued, intact, bleeding controlled, No redness/swelling at site. Pressure ph dressing applied. Administered Medications: :56 Drug: Rocephin IV 2 grams IV at bolus once; Given slow IV push per [employer] Oy ph instructions Route: IV; Rate: bolus; Site: right wrist; 10:30 Follow up: Response: No adverse reaction; IV Status: Completed infusion; IV Intake: ph 100ml Medication: 08:24 VIS not applicable for this client. ph Intake: 10:30 IV: 100ml; Total: 100ml. ph Outcome: :09 Discharge ordered by MD. pena 11:06 Discharged to home via ambulance, ph 11:06 Condition: good 11:06 Discharge instructions given to patient, Instructed on discharge instructions, follow up and referral plans. Demonstrated understanding of instructions, follow-up care, 11:06 Patient left the ED. ph Signatures: Shivani Camejo RN RN ph Botello, Elizabeth eb Oei, Benjamin, MD MD bo1
--- NOTE | 2023-12-23 10:10 | EDPHYS ---
Physician Documentation [facility] Name: Young Gates Age: 63 yrs Sex: Female : 1960 Arrival Date: 12/23/2023 Time: 08:11 Bed 8 Private MD: ED Physician Daryl Ruggiero HPI: 12/22 09:17 This 63 yrs old Female presents to ER via EMS with complaints of Problem With Urinary bo1 Catheter. 09:17 Seen yesterday, smaller sized bang was placed and it's leaking around the catheter. bo1 Onset: The symptoms/episode began/occurred yesterday. Severity of symptoms: in the emergency department the symptoms are unchanged. The patient has been recently seen by a physician: The patient has been recently seen at the [facility] Department, yesterday. Pt was dx as having a UTI - catheter based and her pharmacy is closed over the weekend, will reopen on Sunday. Historical: - Allergies: 08:23 Ampicillin; ph 08:23 Azithromycin; ph 08:23 Chocolate; ph 08:23 Lisinopril; ph 08:23 PENICILLINS; ph 08:23 SHELLFISH; ph - PMHx: 08:23 Arthritis; Cerebrovascular accident; chronic sacral pressure ulcer; ph Hypercholesterolemia; Hypertension; Hypothyroidism; Kidney stones; osteoarthritis; - PSHx: 08:23 Right knee replacement; ph - Immunization history:: Adult Immunizations unknown. - Infectious Disease History:: Denies. - Social history:: Smoking status: Patient denies any tobacco usage or history of. ROS: 09:19 Constitutional: Negative for fever, chills, and weight loss bo1 09:19 Abdomen/GI: Negative for abdominal pain, 09:19 Back: Negative for pain at rest, 09:19 : Positive for Dysuria and urinary leakage, Exam: 09:20 Constitutional: This is a well developed, well nourished patient who is awake, alert, bo1 and in no acute distress. 09:20 : Bladder: is normal, a bang is noted, Size to bang needs to be a 20 FR, [address] currently, 09:20 Musculoskeletal/extremity: Flaccid LE due to CVA. 09:21 Abdomen/GI: Inspection: abdomen appears normal, Bowel sounds: normal, Palpation: bo1 abdomen is soft and non-tender, Vital Signs: 08:17 BP 171 / 105; Pulse 72; Resp 18; Temp 98.1; Pulse Ox 99% ; Weight 75.75 kg; Height 5 ph ft. 8 in. ; 09:56 BP 158 / 92; Pulse 80; Resp 18; Pulse Ox 98% on R/A; ph 10:30 BP 148 / 92; Pulse 78; Resp 18; Temp 97.5; Pulse Ox 98% on R/A; ph 08:17 Body Mass Index 25.39 (75.75 kg, 172.72 cm) ph MDM: 08:17 Medical Screening Exam initiated bo1 09:21 Differential Diagnosis UTI - yesterday's chart was reviewed. Data reviewed: vital bo1 signs, lab test result(s), urinalysis. 09:22 ED course: Catheter was changed to a 20 FR. ED course: Antibiotic IV was also given. bo1 09:47 Data reviewed: old medical records, 12/22/2023. bo1 12/22 08:18 Order name: Urinalysis W/Microscopic; Complete Time: 10:12 bo1 12/22 08:18 Order name: Bang; Complete Time: 09:18 bo1 Administered Medications: 09:56 Drug: Rocephin IV 2 grams IV at bolus once; Given slow IV push per pharmarcy ph instructions Route: IV; Rate: bolus; Site: right wrist; 10:30 Follow up: Response: No adverse reaction; IV Status: Completed infusion; IV Intake: ph 100ml Disposition Summary: 12/23/23 10:09 Discharge Ordered Notes: Problem: chronic bo1 Symptoms: have improved bo1 Condition: Stable bo1 Location: Residential(12/23/23 10:10) bo1 Diagnosis - Leakage of urinary (indwelling) catheter bo1 - Dysuria - Fill prescription of UTI med as soon as possible bo1 Followup: bo1 - With: Private Physician - When: - Reason: Continuance of care Forms: - Medication Reconciliation Form bo1 - Antibiotic Education bo1 - Prescription Opioid Use bo1 - Patient Portal Instructions bo1 - Leadership Thank You Letter bo1 Signatures: Dispatcher DouglasHoShivani Macdonald RN RN ph Oei, MD DEON Brito bo1 Corrections: (The following items were deleted from the chart) 10:10 10:09 Home bo1 bo1
[2023-12-23 16:41] VITALS: O2SAT 98
[2023-12-23 16:42] VITALS: BP 148/92; TEMP 97.5
--- NOTE | 2023-12-26 14:59 | EKG ---
Test Date: 2023-12-22 Test Time: 04:21:19 Language Specialist: MEASUREMENT RESULTS: Intervals: Rate: 88 TN: 136 QRSD: 78 QT: 360 QTc: 435 Mabel: P: 43 TN: 136 QRS: -15 T: 25 INTERPRETIVE STATEMENTS: Sinus rhythm with occasional premature ventricular complexes Otherwise normal ECG Compared to ECG 11/16/2023 13:33:32 Ventricular premature complex(es) now present Sinus tachycardia no longer present Left ventricular hypertrophy no longer present Myocardial infarct finding no longer present Electronically Signed On 12-26-23 14:49:11 CDT by Jonathan Bertrand
== END 2023-12-23 11:06 ==
LOC: ER 08:11
DX: T83.038A Leakage of other urinary catheter, initial encounter (principal); N39.0 Urinary tract infection, site not specified; R30.0 Dysuria; I10 Essential (primary) hypertension; E03.9 Hypothyroidism, unspecified; M19.90 Unspecified osteoarthritis, unspecified site; Z86.73 Personal history of transient ischemic attack (TIA), and cerebral infarction without residual deficits; Z88.0 Allergy status to penicillin; Z91.013 Allergy to seafood; Z79.899 Other long term (current) drug therapy
CPT/HCPCS: 96365; 93005; 81001; 51702; 99285; J0696

== ENCOUNTER 2024-02-27 18:07 | Emergency (ER) | payer OTHER ==
--- OUTSIDE RECORDS SUMMARY | 2024-02-27 18:12 | XMS REPORT | Continuity of Care Document ---
Author Name Unknown Address [address] [facility] Jose Alfredo. [address] [place] [address] [facility] thconnect Address [address] [facility]. [address] [place] [address] Care Team Providers Care Compass Operator Name Role Phone Sonal Washington Attending [...] Number Effective Date Expirati on Date Source [facility] Dual Complete (HMO-POS D-SNP) [id number] 2023 00:00:00 2024 00:00:00 [facility] - DUAL ELIGIBLE (MEDICARE REPLACEMENT/ADVAN TAGE - HMO) [id number] 2022 00:00:[place]PLACEMENT - HMO) [id number] 2018 00:00:00 [facility] - DUAL COMPLETE - DUAL ELIGIBLE - SNP (MEDICARE-MEDICAI D REPLACEMENT HMO) [id number] [facility] - [facility] - DUAL COMPLETE FOCUS (MEDICARE REPLACEMENT HMO) [id number] MEDICAID MC [id number] 2012 00:00:00 [facility] MEDICARE NOVITAS MB [id number] 2010 00:00:00 [facility] [employer] (Medicaid) [id number] 2018 00:00:00 [facility] Problems Condition Name Condition Details Condition [...] 00 [facility] [id number] Functional quadripleg ia Problem [facility] [id number] Microcytic anemia Problem [facility] [id number] Pressure injury of deep tissue of sacral region Problem [facility] [id number] Chronic ulcer of lower extremity, right, with unspecifie d severity Problem [facility] [id number] MRSA infection Problem [facility] [id number] S/P PICC central line placement Problem [facility] Encounter for Patton catheter replacemen t Encounter for Patton catheter replacemen t Problem Common [facility] [id number] Incontinen ce of feces, unspecifie d fecal incontinen ce type Problem [facility] [id number] Urinary incontinen ce, unspecifie d type Problem [facility] [id number] Sacral osteomyeli tis Problem [facility] 52791623 Loss of appetite Problem [facility] 630030439 Seasonal allergies Problem [facility] [id number] Current mild episode of major depressive disorder without prior episode Problem [facility] Overweight Overweight Problem Co mmon [facility] [id number] Seasonal allergic rhinitis due to pollen Problem [facility] 76188503 Other closed fracture of proximal end of right tibia, initial encounter Problem [facility] [id number] Other closed fracture of proximal end of right fibula, initial encounter Problem [facility] 289370980 BMI 33.0-33.9, adult Problem [facility] General weakness General weakness Problem [facility] Pain in limb Pain in limb Problem [facility] 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 Problem [facility] Edema Edema leg Problem [facility] [id number] Other closed fracture of distal end of right femur, initial encounter Problem [facility] 564560201 Other obesity due to excess calories Problem [facility] Peripheral neuropathy Peripheral neuropathy Problem [facility] Hypertensi on HTN (hypertens ion) Problem [facility] Gastroesop hageal reflux disease GERD (gastroeso phageal reflux disease) Problem [facility] Anemia Anemia Problem [facility] Hypothyroi dism Hypothyroi dism Problem [facility] Rheumatoid arthritis Rheumatoid arthritis Problem [facility] Hyperlipid emia Hyperlipid emia Problem [facility] [id number] +5th digit eff 11/27/19*[place] stroesopha geal reflux disease with esophagiti s Problem [facility] [id number] Neuropathy Problem Com [facility] [id number] Wheelchair dependence Problem [facility] Knee pain Knee pain Problem [facility] [id number] Chronic seasonal allergic rhinitis Problem [facility] Dependence on wheelchair Uses wheelchair Problem [facility] Acquired genu valgum Valgus deformity, not elsewhere classified , right knee Problem [facility] [id number] Influenza vaccinatio n administer ed at current visit Problem [facility] [id number] Pressure injury of sacral region, stage 4 Problem [facility] [id number] Leukocytos is, unspecifie d type Problem [facility] Allergies, Adverse Reactions, Alerts Allergy Name Allergy Type Status Severity Reaction(s) Onset Date Inactive Date Treating Clinician Comments Source Penicill ins DA Active SV BREAKOUT IN HIVES UNDER THE SKIN 2022-02 00:00: 00 [facility] lisinopr il DA Active SV CAUSE ME TO HAVE KIDNEY FAILURE 2022-02 00:00: 00 [facility] iodine DA Active SV THROAT SWELLING UP, DIFFICULTY BREATHING 2022-02 0 00:00: 00 [facility] azithrom ycin DA Active SV HIVES 2022-02 00:00: 00 [facility] shellfis h derived FA Active SV THROAT SWELLING UP, DIFFICULTY BREATHING 2022-02 00:00: 00 [facility] shrimp FA Active SV THROAT SWELLS, DIFFICULTY BREATHING 2022-02 00:00: 00 [facility] crab FA Active SV THROAT SWELLS, DIFFICULTY BREATHING 2022-02 0-23 00:00: 00 [facility] azithrom ycin DA Active SV HIVES 2022-02 0-13 00:00: 00 [facility] shrimp FA Active SV THROAT SWELLS, DIFFICULTY BREATHING 8-17 00:00: 00 [facility] crab FA Active SV THROAT SWELLS, DIFFICULTY BREATHING 817 00:00: 00 [facility] Penicill ins DA Active SV BREAKOUT IN HIVES UNDER THE SKIN 8 00:00: 00 [facility] lisinopr il DA Active SV CAUSE ME TO HAVE KIDNEY FAILURE 10-12 00:00: 00 [facility] iodine DA Active SV THROAT SWELLING UP, DIFFICULTY BREATHING 8 00:00: 00 [facility] shellfis h derived FA Active SV THROAT SWELLING UP, DIFFICULTY BREATHING 10-12 00:00: 00 [facility] LISINOPR [place] Allergy to substanc e Active 2013-02 007 00:00: 00 [facility] PENICILL IN Allergy to substanc e Active 2013-02 007 00:00: 00 [facility] [id number] Drug allergy Active Unknown [facility] [id number] 85 Drug allergy Active Unknown [facility] Amoxicil edwin Allergy to substanc e [...] Quantity Comments Source History of Tobacco Use [facility] Sex Assigned At [facility] Smoking Status Start Date Stop Date Source Never Smoker [facility] Medications Ordered Medication Name Filled Medication Name Start Date Stop Date Current Medication? Ordering Clinician Indication Dosage Frequency Signature (SIG) Comments Components Source Cephalexin 500 MG Cephalexin 500 MG 2023-02- 00:00: 00 No 1{table t} BID Cephalexin 500 MG Levothyroxi ne Sodium 150 MCG Levothyroxi ne Sodium 150 MCG 2023-02 2- 00:00: 00 No QD Levothyrox ine Sodium 150 MCG Valsartan 80 MG Valsartan 80 MG 2023-02 1- 00:00: 00 No 1{table t} QD Valsartan 80 MG Imodium A-D 2 MG Imodium A-D 2 MG 2023-02 0- 00:00: 00 No 1{table t_as_ne eded} QID Imodium A-D 2 MG Levothyroxi ne Sodium 125 MCG Levothyroxi ne Sodium 125 MCG 09-16 00:00: 00 No QD Levothyrox ine Sodium 125 MCG Klor-Con 20 MEQ Klor-Con 20 MEQ 09-11 00:00: 00 No 1{packe t_with_ food} BID Klor-Con 20 MEQ Lactinex - Lactinex - - 00:00: 00 No Lactinex - Folic Acid [...] No 1{table t} QD Crestor 10 MG amLODIPine Besylate 5 MG amLODIPine [...] 1{table t} QD Norvasc 5 MG Mirtazapine 15 MG Mirtazapine 15 MG No 1{table t_at_be dtime} QD Mirtazapin e 15 MG Mirtazapine 30 MG Mirtazapine 30 MG No 1{table t_at_be dtime} QD Mirtazapin e 30 MG Immunizations Ordered Immunization Name Filled Immunization Name Date Status Comments Source Flucelvax - single dose syringe Flucelvax - single dose syringe 2022-01-31 15:24:00 Completed [facility] Flucelvax - single dose syringe Flucelvax - single dose syringe 2022-01-31 15:24:00 Completed [facility] Moderna COVID-19 Vaccine Moderna COVID-19 Vaccine 2020-09-03 11:38:00 Completed [facility] Moderna COVID-19 Vaccine Moderna COVID-19 Vaccine 2020-09-03 11:38:00 Completed [facility] Moderna COVID-19 Vaccine Moderna COVID-19 Vaccine 2020-09-03 11:38:00 Completed [facility] Moderna COVID-19 Vaccine Moderna COVID-19 Vaccine 2020-09-03 11:38:00 Completed [facility] Moderna COVID-19 Vaccine Moderna COVID-19 Vaccine 2020-09-03 11:38:00 Completed [facility] Moderna COVID-19 Vaccine Moderna COVID-19 Vaccine 2020-09-03 11:38:00 Completed [facility] Moderna COVID-19 Vaccine Moderna COVID-19 Vaccine 2020-09-03 11:38:00 Completed [facility] Moderna COVID-19 Vaccine Moderna COVID-19 Vaccine 2020-09-03 11:38:00 Completed [facility] Afluria Afluria 2020-01-29 10:05:00 Completed [facility] Afluria Afluria 2020-01-29 10:05:00 Completed [facility] Afluria Afluria 2020-01-29 10:05:00 Completed [facility] Afluria Afluria 2020-01-29 10:05:00 Completed [facility] Afluria Afluria 2020-01-29 10:05:00 Completed [facility] Afluria Afluria 2020-01-29 10:05:00 Completed [facility] Afluria Afluria 2020-01-29 10:05:00 Completed [facility] Afluria Afluria 2020-01-29 10:05:00 Completed [facility] FluAD FluAD 2018-11-08 09:31:00 Completed [facility] FluAD FluAD 2018-11-08 09:31:00 Completed [facility] FluAD FluAD 2018-11-08 09:31:00 Completed [facility] FluAD FluAD 2018-11-08 09:31:00 Completed [facility] FluAD FluAD 2018-11-08 09:31:00 Completed [facility] FluAD FluAD 2018-11-08 09:31:00 Completed [facility] FluAD FluAD 2018-11-08 09:31:00 Completed [facility] FluAD FluAD 2018-11-08 09:31:00 Completed [facility] FluAD FluAD 2018-11-08 00:00:00 Completed [facility] FLUZONE HIGH DOSE OVER 65 FLUZONE HIGH DOSE OVER 65 2017-10-31 12:06:00 Completed [facility] FLUZONE HIGH DOSE OVER 65 FLUZONE HIGH DOSE OVER 65 2017-10-31 12:06:00 Completed [facility] FLUZONE HIGH DOSE OVER 65 FLUZONE HIGH DOSE OVER 65 2017-10-31 12:06:00 Completed [facility] FLUZONE HIGH DOSE OVER 65 FLUZONE HIGH DOSE OVER 65 2017-10-31 12:06:00 Completed [facility] FLUZONE HIGH DOSE OVER 65 FLUZONE HIGH DOSE OVER 65 2017-10-31 12:06:00 Completed [facility] FLUZONE HIGH DOSE OVER 65 FLUZONE HIGH DOSE OVER 65 2017-10-31 12:06:00 Completed [facility] FLUZONE HIGH DOSE OVER 65 FLUZONE HIGH DOSE OVER 65 2017-10-31 12:06:00 Completed [facility] FLUZONE HIGH DOSE OVER 65 FLUZONE HIGH DOSE OVER 65 2017-10-31 12:06:00 Completed [facility] Prevnar 20 (PCV20) Prevnar 20 (PCV20) Unknown Completed [facility] Moderna COVID-19 Vaccine Moderna COVID-19 Vaccine Unknown Completed [facility] Fluarix (IIV4) - SDS - 0.5mL Fluarix (IIV4) - SDS - 0.5mL Unknown Completed [facility] FluAD FluAD Unknown Completed [facility] Afluria Afluria Unknown Completed [facility] Flucelvax (ccIIV4) - SDS - 0.5mL Flucelvax (ccIIV4) - SDS - 0.5mL Unknown Completed [facility] FLUZONE HIGH DOSE OVER 65 FLUZONE HIGH DOSE OVER 65 Unknown Completed [facility] Prevnar 20 (PCV20) Prevnar 20 (PCV20) Unknown Completed [facility] Moderna COVID-19 Vaccine Moderna COVID-19 Vaccine Unknown Completed [facility] Fluarix (IIV4) - SDS - 0.5mL Fluarix (IIV4) - SDS - 0.5mL Unknown Completed [facility] FluAD FluAD Unknown Completed [facility] Afluria Afluria Unknown Completed [facility] Flucelvax (ccIIV4) - SDS - 0.5mL Flucelvax (ccIIV4) - SDS - 0.5mL Unknown Completed [facility] FLUZONE HIGH DOSE OVER 65 FLUZONE HIGH DOSE OVER 65 Unknown Completed [facility] Prevnar 20 (PCV20) Prevnar 20 (PCV20) Unknown Completed [facility] Moderna COVID-19 Vaccine Moderna COVID-19 Vaccine Unknown Completed [facility] Fluarix (IIV4) - SDS - 0.5mL Fluarix (IIV4) - SDS - 0.5mL Unknown Completed [facility] FluAD FluAD Unknown Completed [facility] Afluria Afluria Unknown Completed [facility] Flucelvax (ccIIV4) - SDS - 0.5mL Flucelvax (ccIIV4) - SDS - 0.5mL Unknown Completed [facility] FLUZONE HIGH DOSE OVER 65 FLUZONE HIGH DOSE OVER 65 Unknown Completed [facility] Prevnar 20 (PCV20) Prevnar 20 (PCV20) Unknown Completed [facility] Moderna COVID-19 Vaccine Moderna COVID-19 Vaccine Unknown Completed [facility] Fluarix (IIV4) - SDS - 0.5mL Fluarix (IIV4) - SDS - 0.5mL Unknown Completed [facility] FluAD FluAD Unknown Completed [facility] Afluria Afluria Unknown Completed [facility] Flucelvax (ccIIV4) - SDS - 0.5mL Flucelvax (ccIIV4) - SDS - 0.5mL Unknown Completed [facility] FLUZONE HIGH DOSE OVER 65 FLUZONE HIGH DOSE OVER 65 Unknown Completed [facility] Prevnar 20 (PCV20) Prevnar 20 (PCV20) Unknown Completed [facility] Moderna COVID-19 Vaccine Moderna COVID-19 Vaccine Unknown Completed [facility] Fluarix (IIV4) - SDS - 0.5mL Fluarix (IIV4) - SDS - 0.5mL Unknown Completed [facility] FluAD FluAD Unknown Completed [facility] Afluria Afluria Unknown Completed [facility] Flucelvax (ccIIV4) - SDS - 0.5mL Flucelvax (ccIIV4) - SDS - 0.5mL Unknown Completed [facility] FLUZONE HIGH DOSE OVER 65 FLUZONE HIGH DOSE OVER 65 Unknown Completed [facility] Prevnar 20 (PCV20) Prevnar 20 (PCV20) Unknown Completed [facility] Moderna COVID-19 Vaccine Moderna COVID-19 Vaccine Unknown Completed [facility] Fluarix (IIV4) - SDS - 0.5mL Fluarix (IIV4) - SDS - 0.5mL Unknown Completed [facility] FluAD FluAD Unknown Completed [facility] Afluria Afluria Unknown Completed [facility] Flucelvax (ccIIV4) - SDS - 0.5mL Flucelvax (ccIIV4) - SDS - 0.5mL Unknown Completed [facility] FLUZONE HIGH DOSE OVER 65 FLUZONE HIGH DOSE OVER 65 Unknown Completed [facility] Prevnar 20 (PCV20) Prevnar 20 (PCV20) Unknown Completed [facility] Moderna COVID-19 Vaccine Moderna COVID-19 Vaccine Unknown Completed [facility] Fluarix (IIV4) - SDS - 0.5mL Fluarix (IIV4) - SDS - 0.5mL Unknown Completed [facility] FluAD FluAD Unknown Completed [facility] Afluria Afluria Unknown Completed [facility] Flucelvax (ccIIV4) - SDS - 0.5mL Flucelvax (ccIIV4) - SDS - 0.5mL Unknown Completed [facility] FLUZONE HIGH DOSE OVER 65 FLUZONE HIGH DOSE OVER 65 Unknown Completed [facility] Prevnar 20 (PCV20) Prevnar 20 (PCV20) Unknown Completed [facility] Moderna COVID-19 Vaccine Moderna COVID-19 Vaccine Unknown Completed [facility] Fluarix (IIV4) - SDS - 0.5mL Fluarix (IIV4) - SDS - 0.5mL Unknown Completed [facility] FluAD FluAD Unknown Completed [facility] Afluria Afluria Unknown Completed [facility] Flucelvax (ccIIV4) - SDS - 0.5mL Flucelvax (ccIIV4) - SDS - 0.5mL Unknown Completed [facility] FLUZONE HIGH DOSE OVER 65 FLUZONE HIGH DOSE OVER 65 Unknown Completed [facility] Prevnar 20 (PCV20) Prevnar 20 (PCV20) [facility] COVID-19 Vaccine Unknown Completed [facility] Fluarix (IIV4) - SDS - 0.5mL Fluarix (IIV4) - SDS - 0.5mL Unknown Completed [facility] FluAD FluAD Unknown Completed [facility] Afluria Afluria Unknown Completed [facility] Flucelvax (ccIIV4) - SDS - 0.5mL Flucelvax (ccIIV4) - SDS - 0.5mL Unknown Completed [facility] FLUZONE HIGH DOSE OVER 65 FLUZONE HIGH DOSE OVER 65 Unknown Completed [facility] Prevnar 20 (PCV20) Prevnar 20 (PCV20) Unknown Completed [facility] Moderna COVID-19 Vaccine Moderna COVID-19 Vaccine Unknown Completed [facility] Fluarix (IIV4) - SDS - 0.5mL Fluarix (IIV4) - SDS - 0.5mL Unknown Completed [facility] FluAD FluAD Unknown Completed [facility] Afluria Afluria Unknown Completed [facility] Flucelvax (ccIIV4) - SDS - 0.5mL Flucelvax (ccIIV4) - SDS - 0.5mL Unknown Completed [facility] FLUZONE HIGH DOSE OVER 65 FLUZONE HIGH DOSE OVER 65 Unknown Completed [facility] Prevnar 20 (PCV20) Prevnar 20 (PCV20) Unknown [facility] Modern[facility] COVID-19 Vaccine Unknown Completed [facility] Fluarix (IIV4) - SDS - 0.5mL Fluarix (IIV4) - SDS - 0.5mL Unknown Completed [facility] FluAD FluAD Unknown Completed [facility] Afluria Afluria Unknown Completed [facility] Flucelvax (ccIIV4) - SDS - 0.5mL Flucelvax (ccIIV4) - SDS - 0.5mL Unknown Completed [facility] FLUZONE HIGH DOSE OVER 65 FLUZONE HIGH DOSE OVER 65 Unknown Completed [facility] Prevnar 20 (PCV20) Prevnar 20 (PCV20) Unknown [facility] Modern[facility] COVID-19 Vaccine Unknown Completed [facility] Fluarix (IIV4) - SDS - 0.5mL Fluarix (IIV4) - SDS - 0.5mL Unknown Completed [facility] FluAD FluAD Unknown Completed [facility] Afluria Afluria Unknown Completed [facility] Flucelvax (ccIIV4) - SDS - 0.5mL Flucelvax (ccIIV4) - SDS - 0.5mL Unknown Completed [facility] FLUZONE HIGH DOSE OVER 65 FLUZONE HIGH DOSE OVER 65 Unknown Completed [facility] Prevnar 20 (PCV20) Prevnar 20 (PCV20) Unknown Completed [facility] Moderna COVID-19 Vaccine Moderna COVID-19 Vaccine Unknown Completed [facility] Fluarix (IIV4) - SDS - 0.5mL Fluarix (IIV4) - SDS - 0.5mL Unknown Completed [facility] FluAD FluAD Unknown Completed [facility] Afluria Afluria Unknown Completed [facility] Flucelvax (ccIIV4) - SDS - 0.5mL Flucelvax (ccIIV4) - SDS - 0.5mL Unknown Completed [facility] FLUZONE HIGH DOSE OVER 65 FLUZONE HIGH DOSE OVER 65 Unknown Completed [facility] Prevnar 20 (PCV20) Prevnar 20 (PCV20) Unknown Completed [facility] Moderna COVID-19 Vaccine Moderna COVID-19 Vaccine Unknown Completed [facility] Fluarix (IIV4) - SDS - 0.5mL Fluarix (IIV4) - SDS - 0.5mL Unknown Completed [facility] FluAD FluAD Unknown Completed [facility] Afluria Afluria Unknown Completed [facility] Flucelvax (ccIIV4) - SDS - 0.5mL Flucelvax (ccIIV4) - SDS - 0.5mL Unknown Completed [facility] FLUZONE HIGH DOSE OVER 65 FLUZONE HIGH DOSE OVER 65 Unknown Completed [facility] Prevnar 20 (PCV20) Prevnar 20 (PCV20) Unknown Completed [facility] Moderna COVID-19 Vaccine Moderna COVID-19 Vaccine Unknown Completed [facility] Fluarix (IIV4) - SDS - 0.5mL Fluarix (IIV4) - SDS - 0.5mL Unknown Completed [facility] FluAD FluAD Unknown Completed [facility] Afluria Afluria Unknown Completed [facility] Flucelvax (ccIIV4) - SDS - 0.5mL Flucelvax (ccIIV4) - SDS - 0.5mL Unknown Completed [facility] FLUZONE HIGH DOSE OVER 65 FLUZONE HIGH DOSE OVER 65 Unknown Completed [facility] Prevnar 20 (PCV20) Prevnar 20 (PCV20) Unknown Completed [facility] Moderna COVID-19 Vaccine Moderna COVID-19 Vaccine Unknown Completed [facility] Fluarix (IIV4) - SDS - 0.5mL Fluarix (IIV4) - SDS - 0.5mL Unknown Completed [facility] FluAD FluAD Unknown Completed [facility] Afluria Afluria Unknown Completed [facility] Flucelvax (ccIIV4) - SDS - 0.5mL Flucelvax (ccIIV4) - SDS - 0.5mL Unknown Completed [facility] FLUZONE HIGH DOSE OVER 65 FLUZONE HIGH DOSE OVER 65 Unknown Completed [facility] Prevnar 20 (PCV20) Prevnar 20 (PCV20) Unknown Completed [facility] Moderna COVID-19 Vaccine Moderna COVID-19 Vaccine Unknown Completed [facility] Fluarix (IIV4) - SDS - 0.5mL Fluarix (IIV4) - SDS - 0.5mL Unknown Completed [facility] FluAD FluAD Unknown Completed [facility] Afluria Afluria Unknown Completed [facility] Flucelvax (ccIIV4) - SDS - 0.5mL Flucelvax (ccIIV4) - SDS - 0.5mL Unknown Completed [facility] FLUZONE HIGH DOSE OVER 65 FLUZONE HIGH DOSE OVER 65 Unknown Completed [facility] Prevnar 20 (PCV20) Prevnar 20 (PCV20) Unknown Completed [facility] Moderna COVID-19 Vaccine Moderna COVID-19 Vaccine Unknown Completed [facility] Fluarix (IIV4) - SDS - 0.5mL Fluarix (IIV4) - SDS - 0.5mL Unknown Completed [facility] FluAD FluAD Unknown Completed [facility] Afluria Afluria Unknown Completed [facility] Flucelvax (ccIIV4) - SDS - 0.5mL Flucelvax (ccIIV4) - SDS - 0.5mL Unknown Completed [facility] FLUZONE HIGH DOSE OVER 65 FLUZONE HIGH DOSE OVER 65 Unknown Completed [facility] Prevnar 20 (PCV20) Prevnar 20 (PCV20) Unknown Completed [facility] Moderna COVID-19 Vaccine Moderna COVID-19 Vaccine Unknown Completed [facility] Fluarix (IIV4) - SDS - 0.5mL Fluarix (IIV4) - SDS - 0.5mL Unknown Completed [facility] FluAD FluAD Unknown Completed [facility] Afluria Afluria Unknown Completed [facility] Flucelvax (ccIIV4) - SDS - 0.5mL Flucelvax (ccIIV4) - SDS - 0.5mL Unknown Completed [facility] FLUZONE HIGH DOSE OVER 65 FLUZONE HIGH DOSE OVER 65 Unknown Completed [facility] Prevnar 20 (PCV20) Prevnar 20 (PCV20) Unknown Completed [facility] Moderna COVID-19 Vaccine Moderna COVID-19 Vaccine Unknown Completed [facility] Fluarix Fluarix Unknown Completed [facility] FluAD FluAD Unknown Completed [facility] Afluria Afluria Unknown Completed [facility] Flucelvax - single dose syringe Flucelvax - single dose syringe Unknown Completed [facility] FLUZONE HIGH DOSE OVER 65 FLUZONE HIGH DOSE OVER 65 Unknown Completed [facility] Prevnar 20 (PCV20) Prevnar 20 (PCV20) Unknown Completed [facility] Moderna COVID-19 Vaccine Moderna COVID-19 Vaccine Unknown Completed [facility] Fluarix Fluarix Unknown Completed [facility] FluAD FluAD Unknown Completed [facility] Afluria Afluria Unknown Completed [facility] Flucelvax - single dose syringe Flucelvax - single dose syringe Unknown Completed [facility] FLUZONE HIGH DOSE OVER 65 FLUZONE HIGH DOSE OVER 65 Unknown Completed [facility] Prevnar 20 (PCV20) Prevnar 20 (PCV20) Unknown Completed [facility] Moderna COVID-19 Vaccine Moderna COVID-19 Vaccine Unknown Completed [facility] Fluarix Fluarix Unknown Completed [facility] FluAD FluAD Unknown Completed [facility] Afluria Afluria Unknown Completed [facility] Flucelvax - single dose syringe Flucelvax - single dose syringe Unknown Completed [facility] FLUZONE HIGH DOSE OVER 65 FLUZONE HIGH DOSE OVER 65 Unknown Completed [facility] Prevnar 20 (PCV20) Prevnar 20 (PCV20) Unknown Completed [facility] Moderna COVID-19 Vaccine Moderna COVID-19 Vaccine Unknown Completed [facility] Fluarix (IIV4) - SDS - 0.5mL Fluarix (IIV4) - SDS - 0.5mL Unknown Completed [facility] FluAD FluAD Unknown Completed [facility] Afluria Afluria Unknown Completed [facility] Flucelvax (ccIIV4) - SDS - 0.5mL Flucelvax (ccIIV4) - SDS - 0.5mL Unknown Completed [facility] FLUZONE HIGH DOSE OVER 65 FLUZONE HIGH DOSE OVER 65 Unknown Completed [facility] Prevnar 20 (PCV20) Prevnar 20 (PCV20) Unknown Completed [facility] Moderna COVID-19 Vaccine Moderna COVID-19 Vaccine Unknown Completed [facility] Fluarix (IIV4) - SDS - 0.5mL Fluarix (IIV4) - SDS - 0.5mL Unknown Completed [facility] FluAD FluAD Unknown Completed [facility] Afluria Afluria Unknown Completed [facility] Flucelvax (ccIIV4) - SDS - 0.5mL Flucelvax (ccIIV4) - SDS - 0.5mL Unknown Completed [facility] FLUZONE HIGH DOSE OVER 65 FLUZONE HIGH DOSE OVER 65 Unknown Completed [facility] Prevnar 20 (PCV20) Prevnar 20 (PCV20) Unknown [facility] Moderna COVID-19 Vaccine Unknown Completed [facility] Fluarix (IIV4) - SDS - 0.5mL Fluarix (IIV4) - SDS - 0.5mL Unknown Completed [facility] FluAD FluAD Unknown Completed [facility] Afluria Afluria Unknown Completed [facility] Flucelvax (ccIIV4) - SDS - 0.5mL Flucelvax (ccIIV4) - SDS - 0.5mL Unknown Completed [facility] FLUZONE HIGH DOSE OVER 65 FLUZONE HIGH DOSE OVER 65 Unknown Completed [facility] Prevnar 20 (PCV20) Prevnar 20 (PCV20) Unknown Completed [facility] Moderna COVID-19 Vaccine Moderna COVID-19 Vaccine Unknown Completed [facility] Fluarix (IIV4) - SDS - 0.5mL Fluarix (IIV4) - SDS - 0.5mL Unknown Completed [facility] FluAD FluAD Unknown Completed [facility] Afluria Afluria Unknown Completed [facility] Flucelvax (ccIIV4) - SDS - 0.5mL Flucelvax (ccIIV4) - SDS - 0.5mL Unknown Completed [facility] FLUZONE HIGH DOSE OVER 65 FLUZONE HIGH DOSE OVER 65 Unknown Completed [facility] Prevnar 20 (PCV20) Prevnar 20 (PCV20) Unknown Completed [facility] Moderna COVID-19 Vaccine Moderna COVID-19 Vaccine Unknown Completed [facility] Fluarix (IIV4) - SDS - 0.5mL Fluarix (IIV4) - SDS - 0.5mL Unknown Completed [facility] FluAD FluAD Unknown Completed [facility] Afluria Afluria Unknown Completed [facility] Flucelvax (ccIIV4) - SDS - 0.5mL Flucelvax (ccIIV4) - SDS - 0.5mL Unknown Completed [facility] FLUZONE HIGH DOSE OVER 65 FLUZONE HIGH DOSE OVER 65 Unknown Completed [facility] Prevnar 20 (PCV20) Prevnar 20 (PCV20) Unknown Completed [facility] Moderna COVID-19 Vaccine Moderna COVID-19 Vaccine Unknown Completed [facility] Fluarix (IIV4) - SDS - 0.5mL Fluarix (IIV4) - SDS - 0.5mL Unknown Completed [facility] FluAD FluAD Unknown Completed [facility] Afluria Afluria Unknown Completed [facility] Flucelvax (ccIIV4) - SDS - 0.5mL Flucelvax (ccIIV4) - SDS - 0.5mL Unknown Completed [facility] FLUZONE HIGH DOSE OVER 65 FLUZONE HIGH DOSE OVER 65 Unknown Completed [facility] Prevnar 20 (PCV20) Prevnar 20 (PCV20) Unknown Completed [facility] Moderna COVID-19 Vaccine Moderna COVID-19 Vaccine Unknown Completed [facility] Fluarix (IIV4) - SDS - 0.5mL Fluarix (IIV4) - SDS - 0.5mL Unknown Completed [facility] FluAD FluAD Unknown Completed [facility] Afluria Afluria Unknown Completed [facility] Flucelvax (ccIIV4) - SDS - 0.5mL Flucelvax (ccIIV4) - SDS - 0.5mL Unknown Completed [facility] FLUZONE HIGH DOSE OVER 65 FLUZONE HIGH DOSE OVER 65 Unknown Completed [facility] Prevnar 20 (PCV20) Prevnar 20 (PCV20) Unknown Completed [facility] Moderna COVID-19 Vaccine Moderna COVID-19 Vaccine Unknown Completed [facility] Fluarix (IIV4) - SDS - 0.5mL Fluarix (IIV4) - SDS - 0.5mL Unknown Completed [facility] FluAD FluAD Unknown Completed [facility] Afluria Afluria Unknown Completed [facility] Flucelvax (ccIIV4) - SDS - 0.5mL Flucelvax (ccIIV4) - SDS - 0.5mL Unknown Completed [facility] FLUZONE HIGH DOSE OVER 65 FLUZONE HIGH DOSE OVER 65 Unknown Completed [facility] Prevnar 20 (PCV20) Prevnar 20 (PCV20) Unknown Completed [facility] Moderna COVID-19 Vaccine Moderna COVID-19 Vaccine Unknown Completed [facility] Fluarix (IIV4) - SDS - 0.5mL Fluarix (IIV4) - SDS - 0.5mL Unknown Completed [facility] FluAD FluAD Unknown Completed [facility] Afluria Afluria Unknown Completed [facility] Flucelvax (ccIIV4) - SDS - 0.5mL Flucelvax (ccIIV4) - SDS - 0.5mL Unknown Completed [facility] FLUZONE HIGH DOSE OVER 65 FLUZONE HIGH DOSE OVER 65 Unknown Completed [facility] Prevnar 20 (PCV20) Prevnar 20 (PCV20) Unknown Completed [facility] Moderna COVID-19 Vaccine Moderna COVID-19 Vaccine Unknown Completed [facility] Fluarix (IIV4) - SDS - 0.5mL Fluarix (IIV4) - SDS - 0.5mL Unknown Completed [facility] FluAD FluAD Unknown Completed [facility] Afluria Afluria Unknown Completed [facility] Flucelvax (ccIIV4) - SDS - 0.5mL Flucelvax (ccIIV4) - SDS - 0.5mL Unknown Completed [facility] FLUZONE HIGH DOSE OVER 65 FLUZONE HIGH DOSE OVER 65 Unknown Completed [facility] Prevnar 20 (PCV20) Prevnar 20 (PCV20) Unknown Completed [facility] Moderna COVID-19 Vaccine Moderna COVID-19 Vaccine Unknown Completed [facility] Fluarix (IIV4) - SDS - 0.5mL Fluarix (IIV4) - SDS - 0.5mL Unknown Completed [facility] FluAD FluAD Unknown Completed [facility] Afluria Afluria Unknown Completed [facility] Flucelvax (ccIIV4) - SDS - 0.5mL Flucelvax (ccIIV4) - SDS - 0.5mL Unknown Completed [facility] FLUZONE HIGH DOSE OVER 65 FLUZONE HIGH DOSE OVER 65 Unknown Completed [facility] Prevnar 20 (PCV20) Prevnar 20 (PCV20) Unknown Completed [facility] Moderna COVID-19 Vaccine Moderna COVID-19 Vaccine Unknown Completed [facility] Fluarix (IIV4) - SDS - 0.5mL Fluarix (IIV4) - SDS - 0.5mL Unknown Completed [facility] FluAD FluAD Unknown Completed [facility] Afluria Afluria Unknown Completed [facility] Flucelvax (ccIIV4) - SDS - 0.5mL Flucelvax (ccIIV4) - SDS - 0.5mL Unknown Completed [facility] FLUZONE HIGH DOSE OVER 65 FLUZONE HIGH DOSE OVER 65 Unknown Completed [facility] Prevnar 20 (PCV20) Prevnar 20 (PCV20) Unknown Completed [facility] Moderna COVID-19 Vaccine Moderna COVID-19 Vaccine Unknown Completed [facility] Fluarix (IIV4) - SDS - 0.5mL Fluarix (IIV4) - SDS - 0.5mL Unknown Completed [facility] FluAD FluAD Unknown Completed [facility] Afluria Afluria Unknown Completed [facility] Flucelvax (ccIIV4) - SDS - 0.5mL Flucelvax (ccIIV4) - SDS - 0.5mL Unknown Completed [facility] FLUZONE HIGH DOSE OVER 65 FLUZONE HIGH DOSE OVER 65 Unknown Completed [facility] Prevnar 20 (PCV20) Prevnar 20 (PCV20) Unknown Completed [facility] Moderna COVID-19 Vaccine Moderna COVID-19 Vaccine Unknown Completed [facility] Fluarix (IIV4) - SDS - 0.5mL Fluarix (IIV4) - SDS - 0.5mL Unknown Completed [facility] FluAD FluAD Unknown Completed [facility] Afluria Afluria Unknown Completed [facility] Flucelvax (ccIIV4) - SDS - 0.5mL Flucelvax (ccIIV4) - SDS - 0.5mL Unknown Completed [facility] FLUZONE HIGH DOSE OVER 65 FLUZONE HIGH DOSE OVER 65 Unknown Completed [facility] Prevnar 20 (PCV20) Prevnar 20 (PCV20) Unknown Completed [facility] Moderna COVID-19 Vaccine Moderna COVID-19 Vaccine Unknown Completed [facility] Fluarix (IIV4) - SDS - 0.5mL Fluarix (IIV4) - SDS - 0.5mL Unknown Completed [facility] FluAD FluAD Unknown Completed [facility] Afluria Afluria Unknown Completed [facility] Flucelvax (ccIIV4) - SDS - 0.5mL Flucelvax (ccIIV4) - SDS - 0.5mL Unknown Completed [facility] FLUZONE HIGH DOSE OVER 65 FLUZONE HIGH DOSE OVER 65 Unknown Completed [facility] Prevnar 20 (PCV20) Prevnar 20 (PCV20) Unknown Completed [facility] Moderna COVID-19 Vaccine Moderna COVID-19 Vaccine Unknown Completed [facility] Fluarix (IIV4) - SDS - 0.5mL Fluarix (IIV4) - SDS - 0.5mL Unknown Completed [facility] FluAD FluAD Unknown Completed [facility] Afluria Afluria Unknown Completed [facility] Flucelvax (ccIIV4) - SDS - 0.5mL Flucelvax (ccIIV4) - SDS - 0.5mL Unknown Completed [facility] FLUZONE HIGH DOSE OVER 65 FLUZONE HIGH DOSE OVER 65 Unknown Completed [facility] Prevnar 20 (PCV20) Prevnar 20 (PCV20) Unknown Completed [facility] Moderna COVID-19 Vaccine Moderna COVID-19 Vaccine Unknown Completed [facility] Fluarix (IIV4) - SDS - 0.5mL Fluarix (IIV4) - SDS - 0.5mL Unknown Completed [facility] FluAD FluAD Unknown Completed [facility] Afluria Afluria Unknown Completed [facility] Flucelvax (ccIIV4) - SDS - 0.5mL Flucelvax (ccIIV4) - SDS - 0.5mL Unknown Completed [facility] FLUZONE HIGH DOSE OVER 65 FLUZONE HIGH DOSE OVER 65 Unknown Completed [facility] Prevnar 20 (PCV20) Prevnar 20 (PCV20) Unknown Completed [facility] Moderna COVID-19 Vaccine Moderna COVID-19 Vaccine Unknown Completed [facility] Fluarix (IIV4) - SDS - 0.5mL Fluarix (IIV4) - SDS - 0.5mL Unknown Completed [facility] FluAD FluAD Unknown Completed [facility] Afluria Afluria Unknown Completed [facility] Flucelvax (ccIIV4) - SDS - 0.5mL Flucelvax (ccIIV4) - SDS - 0.5mL Unknown Completed [facility] FLUZONE HIGH DOSE OVER 65 FLUZONE HIGH DOSE OVER 65 Unknown Completed [facility] Prevnar 20 (PCV20) Prevnar 20 (PCV20) Unknown Completed [facility] Moderna COVID-19 Vaccine Moderna COVID-19 Vaccine Unknown Completed [facility] Fluarix (IIV4) - SDS - 0.5mL Fluarix (IIV4) - SDS - 0.5mL Unknown Completed [facility] FluAD FluAD Unknown Completed [facility] Afluria Afluria Unknown Completed [facility] Flucelvax (ccIIV4) - SDS - 0.5mL Flucelvax (ccIIV4) - SDS - 0.5mL Unknown Completed [facility] FLUZONE HIGH DOSE OVER 65 FLUZONE HIGH DOSE OVER 65 Unknown Completed [facility] Vital Signs Vital Name Observation Time Observation Value Comments S ource height 2023-08-31 08:40:00 68 [in_i] Commo n [facility] weight 2023-08-31 08:40:00 167.5 [lb_av] Co mmon [facility] temperature 2023-08-31 08:40:00 98.2 [degF] Com mon [facility] bmi 2023-08-31 08:40:00 25.47 kg/m2 Comm on [facility] oximetry 2023-08-31 08:40:00 99 % Commo n [facility] respiratory rate 2023-08-31 08:40:00 16 /min Common [facility] blood pressure systolic 2023-08-31 08:40:00 114 mm[Hg] [facility] blood pressure diastolic 2023-08-31 08:40:00 71 mm[Hg] [facility] height 2023-06-11 07:40:00 68 [in_i] Commo n [facility] weight 2023-06-11 07:40:00 165 [lb_av] Comm on [facility] temperature 2023-06-11 07:40:00 98.6 [degF] Com mon [facility] bmi 2023-06-11 07:40:00 25.09 kg/m2 Comm on [facility] height 2023-05-17 08:50:00 68 [in_i] Commo n [facility] weight 2023-05-17 08:50:00 220.0 [lb_av] Co mmon [facility] temperature 2023-05-17 08:50:00 97.4 [degF] Com [facility] bmi 2023-05-17 08:50:00 33.45 kg/m2 Comm on [facility] oximetry 2023-05-17 08:50:00 99 % Commo n [facility] respiratory rate 2023-05-17 08:50:00 17 /min Common [facility] blood pressure systolic 2023-05-17 08:50:00 126 mm[Hg] [facility] blood pressure diastolic 2023-05-17 08:50:00 69 mm[Hg] Common [facility] height 2023-05-17 08:50:00 68 [in_i] Commo n [facility] weight 2023-05-17 08:50:00 220.0 [lb_av] Co mmon [facility] temperature 2023-05-17 08:50:00 97.4 [degF] Com mon [facility] bmi 2023-05-17 08:50:00 33.45 kg/m2 Comm on [facility] oximetry 2023-05-17 08:50:00 99 % Commo n [facility] respiratory rate 2023-05-17 08:50:00 17 /min Common [facility] blood pressure systolic 2023-05-17 08:50:00 126 mm[Hg] [facility] blood pressure diastolic 2023-05-17 08:50:00 69 mm[Hg] [facility] height 2023-04-02 08:00:00 68 [in_i] Commo n [facility] weight 2023-04-02 08:00:00 220 [lb_av] Comm on [facility] bmi 2023-04-02 08:00:00 33.45 kg/m2 Comm on [facility] Body Weight 2023-03-20 00:00:00 167 [lb_av] [facility] Height 2023-03-20 00:00:00 68 [in_i] [facility] BMI (Body Mass Index) 2023-03-20 00:00:00 25.4 kg/m2 [facility] height 2023-03-09 09:00:00 68 [in_i] Commo n [facility] weight 2023-03-09 09:00:00 221 [lb_av] Comm on [facility] bmi 2023-03-09 09:00:00 33.6 kg/m2 Commo n [facility] height 2022-11-21 09:20:00 68 [in_i] Commo n [facility] weight 2022-11-21 09:20:00 221.0 [lb_av] Co mmon [facility] temperature 2022-11-21 09:20:00 97.4 [degF] Com mon [facility] bmi 2022-11-21 09:20:00 33.6 kg/m2 Commo n [facility] oximetry 2022-11-21 09:20:00 99 % Commo n [facility] respiratory rate 2022-11-21 09:20:00 18 /min [facility] blood pressure systolic 2022-11-21 09:20:00 130 mm[Hg] Common [facility] blood pressure diastolic 2022-11-21 09:20:00 72 mm[Hg] [facility] height 2022-11-09 09:00:00 68 [in_i] Commo n [facility] weight 2022-11-09 09:00:00 221 [lb_av] Comm on [facility] temperature 2022-11-09 09:00:00 98.4 [degF] Com [facility] bmi 2022-11-09 09:00:00 33.6 kg/m2 Commo n [facility] blood pressure systolic 2022-11-09 09:00:00 130 mm[Hg] Common [facility] blood pressure diastolic 2022-11-09 09:00:00 74 mm[Hg] Common [facility] height 2022-11-07 13:20:00 68 [in_i] Commo n [facility] weight 2022-11-07 13:20:00 220 [lb_av] Comm on [facility] temperature 2022-11-07 13:20:00 98.3 [degF] Com [facility] bmi 2022-11-07 13:20:00 33.45 kg/m2 Comm on [facility] oximetry 2022-11-07 13:20:00 99 % Commo n [facility] respiratory rate 2022-11-07 13:20:00 16 /min [facility] blood pressure systolic 2022-11-07 13:20:00 126 mm[Hg] [facility] blood pressure diastolic 2022-11-07 13:20:00 78 mm[Hg] Common [facility] height 2022-10-09 09:20:00 68 [in_i] Commo n [facility] weight 2022-10-09 09:20:00 220 [lb_av] Comm on [facility] temperature 2022-10-09 09:20:00 97.0 [degF] Com [facility] bmi 2022-10-09 09:20:00 33.45 kg/m2 Comm on [facility] oximetry 2022-10-09 09:20:00 97 % Commo n [facility] respiratory rate 2022-10-09 09:20:00 17 /min [facility] blood pressure systolic 2022-10-09 09:20:00 117 mm[Hg] [facility] blood pressure diastolic 2022-10-09 09:20:00 72 mm[Hg] [facility] height 2022-08-21 13:30:00 68 [in_i] Commo n [facility] weight 2022-08-21 13:30:00 220 [lb_av] Comm on [facility] temperature 2022-08-21 13:30:00 97.3 [degF] Com [facility] bmi 2022-08-21 13:30:00 33.45 kg/m2 Comm on [facility] oximetry 2022-08-21 13:30:00 99 % Commo n [facility] respiratory rate 2022-08-21 13:30:00 17 /min [facility] blood pressure systolic 2022-08-21 13:30:00 137 mm[Hg] Common [facility] blood pressure diastolic 2022-08-21 13:30:00 73 mm[Hg] Common [facility] height 2022-08-21 13:00:00 68 [in_i] Commo n [facility] weight 2022-08-21 13:00:00 220 [lb_av] Comm on [facility] temperature 2022-08-21 13:00:00 97.3 [degF] Com mon [facility] bmi 2022-08-21 13:00:00 33.45 kg/m2 Comm on [facility] oximetry 2022-08-21 13:00:00 99 % Commo n [facility] respiratory rate 2022-08-21 13:00:00 17 /min [facility] blood pressure systolic 2022-08-21 13:00:00 137 mm[Hg] [facility] blood pressure diastolic 2022-08-21 13:00:00 73 mm[Hg] [facility] height 2021-12-12 08:20:00 68 [in_i] Commo n [facility] weight 2021-12-12 08:20:00 220 [lb_av] Comm on [facility] bmi 2021-12-12 08:20:00 33.45 kg/m2 Comm on [facility] Height 2021-12-12 00:00:00 68 [in_i] [facility] BMI (Body Mass Index) 2021-12-12 00:00:00 33.5 kg/m2 [facility] Body Weight 2021-12-12 00:00:00 220 [lb_av] [facility] height 2021-09-28 08:00:00 68 [in_i] Commo n [facility] weight 2021-09-28 08:00:00 220 [lb_av] Comm on [facility] temperature 2021-09-28 08:00:00 99.1 [degF] Com mon [facility] bmi 2021-09-28 08:00:00 33.45 kg/m2 Comm on [facility] blood pressure systolic 2021-09-28 08:00:00 125 mm[Hg] [facility] blood pressure diastolic 2021-09-28 08:00:00 70 mm[Hg] [facility] height 2021-08-15 09:30:00 68 [in_i] Commo n [facility] weight 2021-08-15 09:30:00 195 [lb_av] Comm on [facility] bmi 2021-08-15 09:30:00 29.65 kg/m2 Comm on [facility] blood pressure systolic 2021-08-15 09:30:00 112 mm[Hg] [facility] blood pressure diastolic 2021-08-15 09:30:00 79 mm[Hg] [facility] height 2021-07-18 08:30:00 68 [in_i] Commo n [facility] weight 2021-07-18 08:30:00 195 [lb_av] Comm on [facility] temperature 2021-07-18 08:30:00 97.7 [degF] Com [facility] bmi 2021-07-18 08:30:00 29.65 kg/m2 Comm on [facility] blood pressure systolic 2021-07-18 08:30:00 130 mm[Hg] [facility] blood pressure diastolic 2021-07-18 08:30:00 72 mm[Hg] Common [facility] height 2021-06-30 10:15:00 68 [in_i] Commo n [facility] weight 2021-06-30 10:15:00 195 [lb_av] Comm on [facility] bmi 2021-06-30 10:15:00 29.65 kg/m2 Comm on [facility] blood pressure systolic 2021-06-30 10:15:00 130 mm[Hg] [facility] blood pressure diastolic 2021-06-30 10:15:00 72 mm[Hg] [facility] height 2021-03-11 08:00:00 68 [in_i] Commo n [facility] weight 2021-03-11 08:00:00 200 [lb_av] Comm on [facility] temperature 2021-03-11 08:00:00 97.8 [degF] Com mon [facility] bmi 2021-03-11 08:00:00 30.41 kg/m2 Comm on [facility] Procedures Procedure Date / Time Performed Performing Clinician Source XR, knee, 1 or 2 view 2023-03-20 00:00:00 [facility] [id number] 2022-12-20 00:00:[address] [facility] [id number] 2022-12-20 00:00:[address] [facility] [id number] 2022-12-20 00:00:[address] [facility] [id number] 2022-12-18 00:00:[address] [facility] [id number] 2022-12-18 00:00:[address] [facility] [id number] 2022-12-18 00:00:[address] [facility] XR, knee, 4 or more view 2021-12-12 00:00:00 [facility] Hyste[facility] Encounters Start Date/Time End Date/Time Encounter Type Admission Type Attending Clinicians Care Facility Care Department Encounter ID Source 2023-12-06 11:33:00 Outpatient Sonal [place] [facility] [id number] [facility] 2023-12-04 10:10:00 Outpatient Sonal Washington [facility] [id number] [facility] 2023-11-16 12:10:00 Outpatient Sonal [place] [facility] [id number] [facility] 2023-09-17 15:14:00 Outpatient Sonal [place] [facility] [id number] [facility] 2023-08-28 10:08:00 Outpatient Sonal [place] [facility] [id number] [facility] 2023-08-03 09:26:00 Outpatient Sonal [place] [facility] [id number] [facility] 2023-08-01 09:06:00 Outpatient Sonal [place] [facility] [id number] [facility] 2023-07-05 15:33:00 Outpatient Sonal [place] [facility] [id number] [facility] 2023-06-07 14:25:00 Outpatient Bhakta, Nikolay [facility] [id number] [facility] 2023-05-16 08:42:00 Outpatient Bhakta, Nikolay [facility] [id number] [facility] 2023-05-15 08:08:00 Outpatient Bhakta, Nikolay [facility] [id number] [facility] 2023-03-07 08:28:00 Outpatient Bhakta, Nikolay [facility] [id number] [facility] 2023-03-05 11:04:00 Outpatient Bhakta, Nikolay [facility] [id number] [facility] 2022-12-19 10:04:00 Outpatient Bhakta, Nikolay [facility] [id number] [facility] 2022-11-09 11:20:00 Outpatient Bhakta, Nikolay [facility] [id number] [facility] 2022-11-07 14:39:00 Outpatient Bhakta, Nikolay [facility] [id number] [facility] 2022-11-02 10:30:00 Outpatient Bhakta, Nikolay [facility] [id number] [facility] 2022-09-06 09:05:00 Outpatient Bhakta, Nikolay [facility] [id number] [facility] 2022-08-14 09:39:00 Outpatient Bhakta, Nikolay [facility] [id number] [facility] 2022-08-02 13:42:00 Outpatient Ofelia KHALIL [facility] [id number] [facility] 2022-06-26 09:37:01 Outpatient Ofelia Khalil [facility] [id number] [facility] 2022-02-22 12:30:00 Inpatient NealCarlie connors [facility]AT[facility] HCATO [id number] [facility] 2022-01-27 09:45:01 Outpatient Jannette Good STANIKALC STLMLC [id number] 18933 [facility] 2022-01-03 08:06:00 Outpatient Jannette Good STANIKALC STLMLC [id number] 77975 [facility] 2021-12-08 08:08:00 Outpatient Latisha Na STLMLC STLMLC [id number] 77491 [facility] 2021-10-04 11:22:00 Outpatient Jannette Good STLMLC STLMLC [id number] [id number] [facility] 2021-09-26 09:17:00 Outpatient Latisha Na STLMLC STLMLC [id number] [facility] 2021-08-23 09:54:00 Outpatient Jannette Good STLMLC STLMLC [id number] [facility] 2021-06-27 08:14:00 Outpatient Jannette Good STLMLC STLMLC [id number] [facility] 2021-06-24 11:35:01 Outpatient Jannette Good STLMLC STLMLC [id number] [facility] 2021-06-07 10:43:00 Outpatient GoodJannette curry STLMLC STLMLC [id number] [facility] 2021-05-18 16:35:00 Outpatient Jannette Good STLMLC STLMLC [id number] [facility] 2021-03-23 14:34:30 Outpatient Jannette Good STLMLC STLMLC [id number] [facility] 2021-03-23 14:00:26 Outpatient Jannette Good STLMLC STLMLC [id number] [id number] [facility] 2021-03-23 13:58:30 Outpatient Jannette Good STLMLC STLMLC [id number] 64530 [facility] 2021-03-23 13:57:22 Outpatient Jannette Good STLMLC STLMLC [id number] [facility] 2021-03-23 13:23:44 Outpatient Jannette Good STLMLC STLMLC [id number] 13057 [facility] 2021-03-23 12:45:34 Outpatient Jannette Good STLMLC STLMLC [id number] 44195 [facility] 2021-03-23 12:36:03 Outpatient Jannette Good STLMLC STLMLC [id number] 64176 [facility] 2021-03-23 12:21:11 Outpatient Jannette Good STLMLC STLMLC [id number] 30604 [facility] 2021-03-23 12:09:34 Outpatient Good, Na STLMLC STLMLC [id number] 40665 [facility] 2021-03-23 11:58:50 Outpatient Good, Na STLMLC STLMLC [id number] 68706 [facility] 2021-03-23 11:33:44 Outpatient Good, Na STLMLC STLMLC [id number] 77377 [facility] 2021-03-23 11:31:40 Outpatient Good, Na STLMLC STLMLC [id number] 13031 [facility] 2021-03-23 11:18:14 Outpatient Good, Na STLMLC STLMLC [id number] 14135 [facility] 2021-03-23 11:16:56 Outpatient Good, Na STLMLC STLMLC [id number] 91699 [facility] 2024-02-18 00:00:00 2024-02-18 00:00:00 (TEL) STLMLC STLMLC [id number] [facility] 2024-02-08 00:00:00 2024-02-08 00:00:00 (TEL) STLMLC STLMLC [id number] [facility] 2024-02-07 00:00:00 2024-02-07 00:00:00 OFFICE VISIT ESTAB PT LEVEL 4 STLMLC STLMLC [id number] [facility] 2024-02-07 00:00:00 2024-02-07 00:00:00 (TEL) STLMLC STLMLC [id number] [facility] 2024-02-07 00:00:00 2024-02-07 00:00:00 (TEL) STLMLC STLMLC [id number] [facility] 2024-01-10 00:00:00 2024-01-10 00:00:00 OFFICE VISIT ESTAB PT LEVEL 4 STLMLC STLMLC [id number] [facility] 2024-01-10 00:00:00 2024-01-10 00:00:00 (TEL) STLMLC STLMLC [id number] [facility] 2024-01-10 00:00:00 2024-01-10 00:00:00 (TEL) STLMLC STLMLC [id number] [facility] 2024-01-03 00:00:00 2024-01-03 00:00:00 (TEL) STLMLC STLMLC [id number] [facility] 2023-12-27 00:00:00 2023-12-27 00:00:00 (TEL) STLMLC STLMLC [id number] [facility] 2023-12-10 00:00:00 2023-12-10 00:00:00 (TEL) STLMLC STLMLC [id number] [facility] 2023-12-06 00:00:00 2023-12-06 00:00:00 OFFICE VISIT ESTAB PT LEVEL 4 STLMLC STLMLC [id number] [facility] 2023-12-06 00:00:00 2023-12-06 00:00:00 (TEL) STLMLC STLMLC [id number] [facility] 2023-11-28 00:00:00 2023-11-28 00:00:00 (TEL) STLMLC STLMLC [id number] [facility] 2023-11-16 00:00:00 2023-11-16 00:00:00 (TEL) STLMLC STLMLC [id number] [facility] 2023-11-14 00:00:00 2023-11-14 00:00:00 (TEL) STLMLC STLMLC [id number] [facility] 2023-09-13 00:00:00 2023-09-13 00:00:00 (TEL) STLMLC STLMLC [id number] [facility] 2023-09-12 00:00:00 2023-09-12 00:00:00 (TEL) STLMLC STLMLC [id number] [facility] 2023-09-12 00:00:00 2023-09-12 00:00:00 (TEL) STLMLC STLMLC [id number] [facility] 2023-09-07 00:00:00 2023-09-07 00:00:00 (TEL) STLMLC STLMLC [id number] [facility] 2023-08-31 00:00:00 2023-08-31 00:00:00 OFFICE VISIT ESTAB PT LEVEL 4 STLMLC STLMLC [id number] [facility] 2023-08-31 00:00:00 2023-08-31 00:00:00 (TEL) STLMLC STLMLC [id number] [facility] 2023-08-10 00:00:00 2023-08-10 00:00:00 (TEL) STLMLC STLMLC [id number] [facility] 2023-08-07 00:00:00 2023-08-07 00:00:00 (TEL) STLMLC STLMLC [id number] [facility] 2023-08-03 00:00:00 2023-08-03 00:00:00 OFFICE VISIT ESTAB PT LEVEL 3 STLMLC STLMLC [id number] [facility] 2023-08-03 00:00:00 2023-08-03 00:00:00 (TEL) STLMLC STLMLC [id number] [facility] 2023-08-03 00:00:00 2023-08-03 00:00:00 (TEL) STLMLC STLMLC [id number] [facility] 2023-07-24 00:00:00 2023-07-24 00:00:00 (TEL) STLMLC STLMLC [id number] [facility] 2023-07-16 00:00:00 2023-07-16 00:00:00 (TEL) STLMLC STLMLC [id number] [facility] 2023-07-13 00:00:00 2023-07-13 00:00:00 (TEL) STLMLC STLMLC [id number] [facility] 2023-07-11 00:00:00 2023-07-11 00:00:00 (TEL) STLMLC STLMLC [id number] [facility] 2023-07-11 00:00:00 2023-07-11 00:00:00 (TEL) STLMLC STLMLC [id number] [facility] 2023-07-09 00:00:00 2023-07-09 00:00:00 (TEL) STLMLC STLMLC [id number] [facility] 2023-07-06 00:00:00 2023-07-06 00:00:00 (TEL) STLMLC STLMLC [id number] [facility] 2023-07-06 00:00:00 2023-07-06 00:00:00 OFFICE VISIT NEW PT LEVEL 4 STLMLC STLMLC [id number] [facility] 2023-07-06 00:00:00 2023-07-06 00:00:00 (TEL) STLMLC STLMLC [id number] [facility] 2023-07-05 00:00:00 2023-07-05 00:00:00 (TEL) STLMLC STLMLC [id number] [facility] 2023-06-28 00:00:00 2023-06-28 00:00:00 (TEL) STLMLC STLMLC [id number] [facility] 2023-06-25 00:00:00 2023-06-25 00:00:00 (TEL) STLMLC STLMLC [id number] [facility] 2023-06-25 00:00:00 2023-06-25 00:00:00 (TEL) STLMLC STLMLC [id number] [facility] 2023-06-20 00:00:00 2023-06-20 00:00:00 (TEL) STLMLC STLMLC [id number] [facility] 2023-06-14 00:00:00 2023-06-14 00:00:00 (TEL) STLMLC STLMLC [id number] [facility] 2023-06-11 00:00:00 2023-06-11 00:00:00 (EST. VIDEO) EST VIRTUAL VIDEO VISIT STLMLC STLMLC [id number] [facility] 2023-06-07 00:00:00 2023-06-07 00:00:00 (TEL) STLMLC STLMLC [id number] [facility] 2023-06-07 00:00:00 2023-06-07 00:00:00 (TEL) STLMLC STLMLC [id number] [facility] 2023-05-17 00:00:00 2023-05-17 00:00:00 OFFICE VISIT ESTAB PT LEVEL 4 STLMLC STLMLC [id number] [facility] 2023-05-17 00:00:00 2023-05-17 00:00:00 SUB ANNUAL [facility] WELLNESS VISIT STLMLC STLMLC [id number] [facility] 2023-05-17 00:00:00 2023-05-17 00:00:00 (TEL) STLMLC STLMLC [id number] [facility] 2023-05-10 00:00:00 2023-05-10 00:00:00 (TEL) STLMLC STLMLC [id number] [facility] 2023-04-02 00:00:00 2023-04-02 00:00:00 OFFICE VISIT ESTAB PT LEVEL 3 STLMLC STLMLC [id number] [facility] 2023-03-30 00:00:00 2023-03-30 00:00:00 (TEL) STLMLC STLMLC [id number] [facility] 2023-03-29 00:00:00 2023-03-29 00:00:00 (TEL) STLMLC STLMLC [id number] [facility] 2023-03-20 00:00:00 2023-03-20 00:00:00 Ian Monzon MD: [address] [place] [phone] , Ph. [phone] [facility] [place] - [facility] [place] [facility] - FOG_Ofc [place] [id number] [facility] 2023-03-09 00:00:00 2023-03-09 00:00:00 (TEL) [facility] [id number] [facility] 2023-03-09 00:00:00 2023-03-09 00:00:00 (EST. VIDEO) EST VIRTUAL VIDEO VISIT [facility] [id number] [facility] 2023-03-07 00:00:00 2023-03-07 00:00:00 Outpatient FOG_Behlisa _Robin AOSM AOSM [id number] [facility] 2023-03-05 00:00:00 2023-03-05 00:00:00 (TEL) [facility] [id number] [facility] 2023-02-23 00:00:00 2023-02-23 00:00:00 Outpatient FOG_Behlisa _Enrico_ AOSM AOSM [id number] [facility] 2023-02-20 00:00:00 2023-02-20 00:00:00 (TEL) [facility] [id number] [facility] 2023-01-01 00:00:00 2023-01-01 00:00:00 Outpatient FOG_Burke_R Redd AOSM AOSM [id number] [facility] 2023-01-01 00:00:00 2023-01-01 00:00:00 Outpatient FOG_Burke_R jennifer_ AOSM AOSM [id number] [facility] 2023-01-01 00:00:00 2023-01-01 00:00:00 Outpatient FOG_Burke_R Redd AOSM AOSM [id number] [facility] 2022-12-25 00:00:00 2022-12-25 00:00:00 Outpatient GC_GCBZW_Ka dinapoleona_S PRIV PRIV [id number] [facility] 2022-12-24 00:00:00 2022-12-24 00:00:00 Outpatient GC_GCBZW_Ka dinapoleona_S PRIV PRIV [id number] [facility] 2022-12-20 15:46:00 2022-12-21 16:12:00 Inpatient Ian Kerr HCATO SURG [id number] [facility] 2022-12-08 16:36:00 2022-12-08 16:36:00 Outpatient Na Ian HCACL LABO [id number] 87 [facility] 2022-10-10 08:00:00 2022-12-08 16:00:00 Outpatient Carlie Simmons HCATO LABO [id number] 25 [facility] 2022-12-08 10:50:00 2022-12-08 10:50:00 Outpatient Ian Kerr HCATO RADI [id number] [facility] 2022-11-29 00:00:00 2022-11-29 00:00:00 Outpatient FOG_Burke_R Redd AOSM AOSM [id number] [facility] 2022-11-29 00:00:00 2022-11-29 00:00:00 Outpatient FOG_BurkkevonR Redd AOSM AOSM [id number] [facility] 2022-11-29 00:00:00 2022-11-29 00:00:00 Outpatient FOG_Burke_R Redd AOSM AOSM [id number] [facility] 2022-11-29 00:00:00 2022-11-29 00:00:00 Outpatient FOG_Burke_R obertHAVEN AOSM AOSM [id number] [facility] 2022-11-29 00:00:00 2022-11-29 00:00:00 Outpatient FOG_Burke_R obertHAVEN AOSM AOSM [id number] [facility] 2022-11-29 00:00:00 2022-11-29 00:00:00 Outpatient FOG_Burke_R obertHAVEN AOSM AOSM [id number] [facility] 2022-11-29 00:00:00 2022-11-29 00:00:00 Outpatient FOG_Burke_R obJamaica AOSM AOSM [id number] [facility] 2022-11-23 00:00:00 2022-11-23 00:00:00 (TEL) [facility] [id number] [facility] 2022-11-21 00:00:00 2022-11-21 00:00:00 OFFICE VISIT ESTAB PT LEVEL 4 [facility] [id number] [facility] 2022-11-14 00:00:00 2022-11-14 00:00:00 (TEL) [facility] [id number] [facility] 2022-11-13 00:00:00 2022-11-13 00:00:00 Outpatient FOG_Burke_R obJamaica AOSM AOSM [id number] [facility] 2022-11-13 00:00:00 2022-11-13 00:00:00 Outpatient FOG_Burke_R obJamaica AOSM AOSM [id number] [facility] 2022-11-13 00:00:00 2022-11-13 00:00:00 Outpatient FOG_Burke_R obertHAVEN AOSM AOSM [id number] [facility] 2022-11-13 00:00:00 2022-11-13 00:00:00 (TEL) STLMLC STLMLC [id number] [facility] 2022-11-09 00:00:00 2022-11-09 00:00:00 OFFICE VISIT NEW PT LEVEL 3 STLMLC STLMLC [id number] [facility] 2022-11-07 00:00:00 2022-11-07 00:00:00 OFFICE VISIT ESTAB PT LEVEL 4 STLMLC STLMLC [id number] [facility] 2022-11-07 00:00:00 2022-11-07 00:00:00 (TEL) STLMLC STLMLC [id number] [facility] 2022-11-02 00:00:00 2022-11-02 00:00:00 (TEL) STLMLC STLMLC [id number] [facility] 2022-10-10 17:10:00 2022-10-10 17:10:00 Outpatient Nealdory Carlie HCACL LABO [id number] 67 [facility] 2022-10-10 08:00:00 2022-10-10 09:00:00 Outpatient Ian Kerr HCATO 3DAY [id number] 76 [facility] 2022-10-09 00:00:00 2022-10-09 00:00:00 Outpatient FOG_Burke_R Redd AOSM AOSM [id number] [facility] 2022-10-09 00:00:00 2022-10-09 00:00:00 Outpatient FOG_Mukul_R jennifer_ AOSM AOSM [id number] [facility] 2022-10-09 00:00:00 2022-10-09 00:00:00 OFFICE VISIT ESTAB PT LEVEL 4 STLMLC STLMLC [id number] [facility] 2022-10-06 00:00:00 2022-10-06 00:00:00 (TEL) [facility] [id number] [facility] 2022-09-06 00:00:00 2022-09-06 00:00:00 (TEL) [facility] [id number] [facility] 2022-09-05 00:00:00 2022-09-05 00:00:00 Outpatient FOG_Burke_R obJamaica AOSM AOSM [id number] [facility] 2022-08-21 00:00:00 2022-08-21 00:00:00 OFFICE VISIT ESTAB PT LEVEL 4 [facility] [id number] [facility] 2022-08-21 00:00:00 2022-08-21 00:00:00 SUB ANNUAL [facility] WELLNESS VISIT [facility] [id number] [facility] 2022-02-08 00:00:00 2022-02-08 00:00:00 (TEL) [facility] [id number] [facility] 2022-01-05 00:00:00 2022-01-05 00:00:00 Outpatient FOG_Burke_R Redd AOSM AOSM [id number] [facility] 2022-01-05 00:00:00 2022-01-05 00:00:00 Outpatient FOG_Burke_R Redd AOSM AOSM [id number] [facility] 2022-01-05 00:00:00 2022-01-05 00:00:00 Outpatient FOG_Burke_R Redd AOSM AOSM [id number] [facility] 2021-12-16 00:00:00 2021-12-16 00:00:00 Outpatient FOG_Burke_R Redd AOSM AOSM [id number] [facility] 2021-12-14 00:00:00 2021-12-14 00:00:00 (TEL) [facility] [id number] [facility] 2021-12-12 00:00:00 2021-12-12 00:00:00 Outpatient FOG_Olinda Rainey AOSM AO [id number] [facility] 2021-12-12 00:00:00 2021-12-12 00:00:00 OFFICE VISIT ESTAB PT LEVEL 4 [facility] [id number] [facility] 2021-12-12 00:00:00 2021-12-12 00:00:00 Carlie Garrido MD: [address] [place] [phone] , Ph. [phone] [facility] [place] - [facility] [place] - [facility] [id number] [facility] 2021-12-11 00:00:00 2021-12-11 00:00:00 Outpatient FOG_Olinda Rainey AOSM AOSM [id number] [facility] 2021-12-09 00:00:00 2021-12-09 00:00:00 (TEL) [facility] [id number] [facility] 2021-11-02 00:00:00 2021-11-02 00:00:00 Outpatient FOG_Olinda Rainey AOSM AOSM [id number] [facility] 2021-09-28 00:00:00 2021-09-28 00:00:00 OFFICE VISIT ESTAB PT LEVEL 4 [facility] [id number] [facility] 2021-09-12 12:59:00 2021-09-12 12:59:00 Outpatient FOG_Olinda Rainey AOSM AOSM [id number] [facility] 2021-08-24 00:00:00 2021-08-24 00:00:00 (TEL) STLMLC STLMLC [id number] [facility] 2021-08-15 00:00:00 2021-08-15 00:00:00 OFFICE VISIT EST PT LEVEL 3 STLMLC STLMLC [id number] [facility] 2021-07-18 00:00:00 2021-07-18 00:00:00 OFFICE VISIT EST PT LEVEL 3 STLMLC STLMLC [id number] [facility] 2021-07-06 00:00:00 2021-07-06 00:00:00 (TEL) STLMLC STLMLC [id number] [facility] 2021-06-30 00:00:00 2021-06-30 00:00:00 OFFICE VISIT NEW PT LEVEL 3 STLMLC STLMLC [id number] [facility] 2021-06-29 00:00:00 2021-06-29 00:00:00 OL DIG E/M SVC 21+ MIN STLMLC STLMLC [id number] [facility] 2021-06-24 00:00:00 2021-06-24 00:00:00 (TEL) STLMLC STLMLC [id number] [facility] 2021-03-11 00:00:00 2021-03-11 00:00:00 OFFICE VISIT ESTAB PT LEVEL 4 STLMLC STLMLC [id number] [facility] 2020-12-03 00:00:00 2020-12-03 00:00:00 OFFICE VISIT ESTAB PT LEVEL 4 STLMLC STLMLC [id number] [facility] 2020-10-06 00:00:00 2020-10-06 00:00:00 (TEL) STLMLC STLMLC [id number] [facility] 2020-09-03 00:00:00 2020-09-03 00:00:00 Outpatient STLMLC STLMLC [id number] [facility] 2020-09-03 00:00:00 2020-09-03 00:00:00 Outpatient STLMLC STLMLC [id number] [facility] 2020-08-23 00:00:00 2020-08-23 00:00:00 (TEL) STLMLC STLMLC [id number] [facility] 2020-06-28 00:00:00 2020-06-28 00:00:00 Outpatient STLMLC STLMLC [id number] [facility] 2020 00:00:00 2020 00:00:00 Outpatient STLMLC STLMLC [id number] [facility] 2020-01-29 00:00:00 2020-01-29 00:00:00 Outpatient STLMLC STLMLC [id number] [facility] 2020-01-29 00:00:00 2020-01-29 00:00:00 Outpatient STLMLC STLMLC [id number] [facility] 2019-09-15 00:00:00 2019-09-15 00:00:[address] [facility] [id number] [facility] 2019-06-16 08:40:00 2019-06-16 08:40:[address] [facility] [id number] [facility] 2019-05-30 15:47:00 2019-05-30 15:47:[address] [facility] [id number] [facility] 2019-02-07 08:40:00 2019-02-07 08:40:[address] [facility] [id number] [facility] 2019-01-30 16:14:00 2019-01-30 16:14:[address] [facility] [id number] [facility] 2018-11-08 08:40:00 2018-11-08 08:40:[address] [facility] [id number] [facility] 2018-10-22 08:20:00 2018-10-22 08:20:00 Outpatient [facility] [id number] [facility] 2018-05-06 08:30:00 2018-05-06 08:30:00 Outpatient [facility] [id number] [facility] Results Test Description Test Time Test Comments Results Result Co mments Source - XR KNEE 1 OR 2 V [id number] 10:07:[facility] 1960 Sex: F Patient Name: YOUNG FIGUEROA Unit No: [id number] EXAMS: CPT CODE: [id number] XR KNEE 1 OR 2 [place] [id number] IMAGES PROVIDED: 2 FINDINGS: Postoperative changes from right total knee arthoplasty demonstrated without evidence of immediate complication. No acute fracture is visualized. IMPRESSION: Postoperative exam as above. at 1007 Rep orted and signed by: Brendon Delgadillo M.D. CC: Ian Monzon MD Technologist: RAFFI PEREZ ARRT Transcribed D/ (1007) [email or web address] [facility] NAME: YOUNG FIGUEROA [address] [facility] [address] PHYS: aIn Mix MD : 1960 AGE: 62 SEX: F [place], [place] [address] LOC: Y.504 A PHONE #: [phone] EXAM DATE: 12/18/2022 STATUS: ADMIN FAX #: [phone] RAD #: D/C DT PAGE 1 Signed Report Patient Name: YOUNG FIGUEROA Unit No: [id number] EXAMS: CPT CODE: [id number] XR KNEE 1 OR 2 V RT 18160 (Continued) Orig Print D/T: S: 12/20/2022 (0735) [facility] NAME: YOUNG FIGUEROA [address] [facility] [address] PHYS: Ian Mix MD : 1960 AGE: 62 SEX: F [place], [place] [address] LOC: Y.504A PHONE #: [phone] EXAM DATE: 12/18/2022 STATUS: ADM IN FAX #: [phone] RAD #: D/C DT PAGE2 Signed ReportHGB [id number] 06:02:00* Test Item Value Reference Range Interpretation Comme nts HEMOGLOBIN (test code = HGB) 9.2 g/dL 12-16 L HEMATOCRIT (test code = HCT) 27.5 % 37-47 L SPECIMEN COMMENT: POD #1- US EXTREM NON VASC [id number] 08:06:00 [facility] : 1960 Sex: F Patient Name: YOUNG FIGUEROA Unit No: [id number] EXAMS: CPT CODE: [id number] US EXTREM NON VASC COMP 66819 TECHNIQUE: Callaway scale and Doppler sonographic evaluation [...] Brendon Delgadillo M.D. CC: Carlie Garrido MD Tech nologist: MONICA EASLEY RDMS, RVT Transcribed D/ (0806) Jimenez [facility] NAME: YOUNG FIGUEROA [address] [facility] PHYS: UNDEFINED - Undefined Provider : 1960 AGE: 62 SEX: F [place] [address] LOC: LanRAD PHONE #: [phone] EXAM DATE: 12/08/2022 STATUS: DEP CLI FAX #: [phone] RAD #: D/C DT PAGE 1 Signed Report Patient Name: YOUNG FIGUEROA Unit No: [id number] EXAMS: CPT CODE: [id number] US EXTREM NON VASC COMP 47727 (Continued) Orig Print D/T: S: 12/11/2022 (0809) [facility] NAME: YOUNG FIGUEROA [address] [facility] PHYS: UNDEFINED - Undefined Provider : 1960 AGE: 62 SEX: F [place] [address] LOC: Y.RAD PHONE #: [phone] EXAM DATE: 12/08/2022 STATUS: DEP CLI FAX #: [phone] RAD #: D/C DT PAGE 2 Signed [...] fructosamineshould be considered for these patients.DONE AT: [facility] [address] [place] [address] GLYCOSYLATED HEMOGLOBIN (HA1C)2022-12-08 21:01:00* Test Item Value [...] be considered for these patients. COMPREHENSIVE METABOLIC [id number] 14:03:00* Test Item Value Reference Range Interpretation [...] ALKP) 109 U/L 46-116 N C REACTIVE [id number] 14:02:00* Test Item Value Reference Range Interpretation Comme nts C REACTIVE PROTEIN (test code = CRP) 2.54 mg/dL < 0.3 H Please note ne w normal range. CBC W/AUTO [id number] 12:24:00* Test Item Value Reference Range Interpretation [...] = NRBC) 0 % 0-0 N PROTHROMBIN [id number] 12:24:00* Test Item Value Reference Range Interpretation [...] Patient is on Heparin Drip? NOTHROMBOPLASTIN TIME [id number] 12:24:00* Test Item Value Reference Range Interpretation Comme nts PTT ACTIVATED (test code = APTT) 33.5 secs 25.1-36.5 N IS PATIENT ON ANTICOAGULANTS ? [facility] been notified if Patient is on Heparin Drip? NOCBC W/AUTO [id number] 00:00:00* Test Item Value Reference Range Interpretation Comme nts NUCLEATED RBCS (test code = 21923-8) 0.0 /100 WBC'S See_Comment [Automated messa ge] The system which generated this result transmitted reference range: 0.0 /100 WBC'S. The reference range was not used to interpret this result as normal/abnormal. ABSOLUTE EOSINOPHILS (test code = 15601-1) 0.00 K/UL See_Comment [Automated messa ge] The system which generated this result transmitted reference range: 0.00-0.50 K/UL. The reference range was not used to interpret this result as normal/abnormal. ABSOLUTE LYMPHOCYTES (test code = 83654-4) 1.46 K/UL See_Comment [Automated messa ge] The system which generated this result transmitted reference range: 1.00-4.00 K/UL. The reference range was not used to interpret this result as normal/abnormal. ABSOLUTE MONOCYTES (test code = 47272-6) 0.71 K/UL See_Comment [Automated messa ge] The system which generated this result transmitted reference range: 0.20-1.00 K/UL. The reference range was not used to interpret this result as normal/abnormal. ABSOLUTE NEUTROPHILS (test code = 38340-5) 6.05 K/UL See_Comment [Automated messa ge] The system which generated this result transmitted reference range: 1.50-7.50 K/UL. The reference range was not used to interpret this result as normal/abnormal. BASOPHILS (test code = 36083-1) 0.6 % EOSINOPHILS (test code = 75069-5) 0.0 % HEMATOCRIT (test code = 67668-7) 37.6 % See_Comment [Automated messa ge] The [...] result as normal/abnormal. LYMPHOCYTES (test code = 93011-7) 17.6 % MCH (test code = 56152-9) 32.0 PG See_Comment [Automated messa ge] The system which generated this result transmitted reference range: 25.0-33.0 PG. The reference range was not used to interpret this result as normal/abnormal. MCHC (test code = 83522-8) 33.8 G/DL See_Comment [Automated messa ge] The system which generated this result transmitted reference range: 31.0-36.0 G/DL. The reference range was not used to interpret this result as normal/abnormal. MCV (test code = 78880-9) 94.7 fL See_Comment [Automated messa ge] The system which generated this result transmitted reference range: 80.0-99.0 fL. The reference range was not used to interpret this result as normal/abnormal. MONOCYTES (test code = 21699-5) 8.6 % NEUTROPHILS (test code = 25496-0) 72.8 % PLATELET COUNT (test code = 68393-6) 329 K/UL See_Comment [Automated messa ge] The system which generated this result transmitted reference range: 130-400 K/UL. The reference range was not used to interpret this result as normal/abnormal. RBC (test code = 02170-2) 3.97 M/UL See_Comment [Automated messa ge] The system which generated this result transmitted reference range: 3.80-5.40 M/UL. The reference range was not used to interpret this result as normal/abnormal. RDW (test code = 25418-8) 14.5 % See_Comment [Automated messa ge] The system which generated this result transmitted reference range: 11.5-15.0 %. The reference range was not used to interpret this result as normal/abnormal. WBC (test code = 46624-1) 8.3 K/UL See_Comment [Automated messa ge] The system which generated this result transmitted reference range: 3.5-11.0 K/UL. The reference range was not used to interpret this result as normal/abnormal. COMPREHENSIVE METABOLIC [id number] 14:27:00* Test Item Value Reference Range Interpretation [...] = ALKP) 81 U/L 46-116 N PROTHROMBIN [id number] 13:31:00* Test Item Value Reference Range Interpretation [...] intravascular valves IS PATIENT ON ANTICOAGULANTS ? [facility] been notified if Patient is on Heparin Drip? NOTHROMBOPLASTIN TIME [id number] 13:31:00* Test Item Value Reference Range Interpretation Comme nts PTT ACTIVATED (test code = APTT) 37.0 secs 25.1-36.5 H IS PATIENT ON ANTICOAGULANTS ? [facility] been notified if Patient is on Heparin Drip? NOCBC W/AUTO [id number] 13:05:00* Test Item Value Reference Range Interpretation [...]
--- NOTE | 2024-02-27 20:06 | ER ---
Nurse's Notes [facility] Name: Young Gates Age: 63 yrs Sex: Female : 1960 Arrival Date: 02/27/2024 Time: 18:07 Bed 18 Private MD: Diagnosis: Leakage of urinary (indwelling) catheter Presentation: 02/26 18:09 Chief complaint: EMS states: LEAKING FROM AROUND [facility]. Coronavirus screen: At this bp time, the client does not indicate any symptoms associated with coronavirus-19. Ebola Screen: No symptoms or risks identified at this time. Initial Sepsis Screen: Does the patient meet any 2 criteria? No. Patient's initial sepsis screen is negative. Does the patient have a suspected source of infection? No. Patient's initial sepsis screen is negative. Risk Assessment: Do you want to hurt yourself or someone else? Patient reports no desire to harm self or others. Onset of symptoms is unknown. 18:09 Method Of Arrival: EMS: [facility] bp 18:09 Acuity: KJ 4 bp Triage Assessment: 18:12 General: Appears in no apparent distress. Behavior is appropriate for age. Pain: Denies bp pain. EENT: No deficits noted. Neuro: No deficits noted. Cardiovascular: No deficits noted. Respiratory: No deficits noted. GI: No signs and/or symptoms were reported involving the gastrointestinal system. : Reports LEAKING [facility]. Derm: No deficits noted. Musculoskeletal: No deficits noted. Historical: - Allergies: 18:12 Ampicillin; bp 18:12 Azithromycin; bp 18:12 Chocolate; bp 18:12 Lisinopril; bp 18:12 PENICILLINS; bp 18:12 SHELLFISH; bp - PMHx: 18:12 Arthritis; Cerebrovascular accident; chronic sacral pressure ulcer; bp Hypercholesterolemia; Hypertension; Hypothyroidism; Kidney stones; osteoarthritis; - PSHx: 18:12 Right knee replacement; bp - Immunization history:: Adult Immunizations up to date. - Infectious Disease History:: Denies. - Social history:: Smoking status: Patient denies any tobacco usage or history of. Screenin:13 [facility] ED Fall Risk Assessment (Adult) History of falling in the last 3 months, bp including since admission No falls in past 3 months (0 pts) Confusion or Disorientation No (0 pts) Intoxicated or Sedated No (0 pts) Impaired Gait Yes (1 pt) Mobility Assist Device Used No (0 pt) Altered Elimination Yes (1 pt) Score/Fall Risk Level 0 - 2 = Low Risk Oriented to surroundings. Abuse screen: Denies threats or abuse. Denies injuries from another. Nutritional screening: No deficits noted. Tuberculosis screening: No symptoms or risk factors identified. Assessment: 18:13 General: Appears in no apparent distress. comfortable, Behavior is appropriate for age. bp 19:10 General: Appears in no apparent distress. comfortable, Behavior is appropriate for age. rg5 19:10 Neuro: Level of Consciousness is awake, alert, obeys commands. Cardiovascular: rg5 Patient's skin is warm and dry. Respiratory: Airway is patent Trachea midline Respiratory effort is even, unlabored, Respiratory pattern is regular, symmetrical. GI: Abdomen is round non-distended. : [facility] in place to gravity drainage leaking Reports leak on [facility] cath. EENT: No deficits noted. Derm: Skin is fragile, Skin is dry, Skin is normal, Skin temperature is warm. Musculoskeletal: Circulation, motion, and sensation intact. Range of motion: limited in left \T\ right leg. Vital Signs: 18:09 BP 134 / 84; Pulse 65; Resp 16; Temp 98.4; Pulse Ox 94% ; bp 19:30 BP 129 / 80; Pulse 67; Resp 17; Temp 98; Pulse Ox 95% on R/A; rg5 ED Course: 18:09 Patient arrived in ED. bp 18:10 Triage completed. bp 18:12 Arm band placed on. bp 18:13 Patient has correct armband on for positive identification. bp 18:24 Daryl Ruggiero MD is Attending Physician. bo1 18:28 Bonilla Temple, EUNICE is Primary Nurse. bp 19:10 No provider procedures requiring assistance completed. Patient did not have IV access rg5 during this emergency room visit. 22:35 Provided Education on: post er care. rg5 Administered Medications: No medications were administered Medication: 18:13 VIS not applicable for this client. bp Outcome: 20:06 Discharge ordered by . bo1 20:30 Discharged to home via ambulance, rg5 20:30 Condition: stable rg5 20:30 Discharge instructions given to EMS, Instructed on discharge instructions, follow up and referral plans. Demonstrated understanding of instructions, follow-up care, Prescriptions given X 1, 22:35 Patient left the ED. rg5 Signatures: Bonilla Temple, RN RN bp Daryl Ruggiero MD MD bo1 Sj Mckenna, EUNICE RN rg5
--- NOTE | 2024-02-27 20:06 | EDPHYS ---
Physician Documentation [facility] Name: Young Gates Age: 63 yrs Sex: Female : 1960 Arrival Date: 02/27/2024 Time: 18:07 Bed 18 Private MD: ED Physician Daryl Ruggiero HPI: 02/26 19:07 This 63 yrs old Female presents to ER via EMS with complaints of Problem With Urinary bo1 Catheter. 19:07 "leaking around the bang catheter". Onset: The symptoms/episode began/occurred last bo1 night. Severity of symptoms: At their worst the symptoms were moderate Pt leaked into her bed since last night. Pt has an 20 Fr bang catheter. Historical: - Allergies: 18:12 Ampicillin; bp 18:12 Azithromycin; bp 18:12 Chocolate; bp 18:12 Lisinopril; bp 18:12 PENICILLINS; bp 18:12 SHELLFISH; bp - PMHx: 18:12 Arthritis; Cerebrovascular accident; chronic sacral pressure ulcer; bp Hypercholesterolemia; Hypertension; Hypothyroidism; Kidney stones; osteoarthritis; - PSHx: 18:12 Right knee replacement; bp - Immunization history:: Adult Immunizations up to date. - Infectious Disease History:: Denies. - Social history:: Smoking status: Patient denies any tobacco usage or history of. ROS: 19:09 Constitutional: Negative for fever, chills, and weight loss bo1 19:09 Abdomen/GI: Negative for abdominal pain, nausea and vomiting, 19:09 : Positive for Leaking around the bang catheter - 20 Fr, 19:09 All other systems are negative, Exam: 19:10 Constitutional: This is a well developed, well nourished patient who is awake, alert, bo1 and in no acute distress. 19:10 Constitutional: The patient appears alert, awake, comfortable, smells of urine, Bedridden with contractures 19:10 Abdomen/GI: Bowel sounds: normal, Palpation: abdomen is soft and non-tender, 19:10 : a bang is noted, 20 Fr, 19:10 Musculoskeletal/extremity: Contractures present \\T\\ baseline. Vital Signs: 18:09 BP 134 / 84; Pulse 65; Resp 16; Temp 98.4; Pulse Ox 94% ; bp 19:30 BP 129 / 80; Pulse 67; Resp 17; Temp 98; Pulse Ox 95% on R/A; rg5 MDM: 18:25 Medical Screening Exam initiated bo1 19:12 Differential Diagnosis Size of catheter has to be sized up to a 22 Fr. bo1 19:13 Data reviewed: vital signs. bo1 19:13 ED course: Awaiting nursing to change out the bang with supply of the required size bo1 from central supply. 02/26 18:35 Order name: Bang; Complete Time: 20:38 bo1 Administered Medications: No medications were administered Disposition Summary: 02/27/24 20:06 Discharge Ordered Notes: Location: Home bo1 Problem: chronic bo1 Symptoms: have improved bo1 Condition: Stable bo1 Diagnosis - Leakage of urinary (indwelling) catheter bo1 Followup: bo1 - With: Private Physician - When: Upon discharge from the Emergency Department - Reason: Recheck today's complaints, Continuance of care Discharge Instructions: - Discharge Summary Sheet bo1 - Indwelling Urinary Catheter Care, Adult bo1 Forms: - Medication Reconciliation Form bo1 - Antibiotic Education bo1 - Prescription Opioid Use bo1 - Patient Portal Instructions bo1 - Leadership Thank You Letter bo1 Prescriptions: - Macrobid 100 mg Oral Capsule - take 1 capsule ORAL route every 12 hours for 7 days; 14 capsule; Refills: 0, bo1 Product Selection Permitted Signatures: Dispatcher [employer] Bonilla Gillis, RN RN bp Oei, MD DEON Brito bo1 Corrections: (The following items were deleted from the chart) 18:41 18:26 CBC+H.LAB.BRZ ordered. EDMS EDMS 18:41 18:27 Urinalysis+U.LAB.BRZ ordered. EDMS EDMS 18:42 18:26 BASIC METABOLIC PANEL+C.LAB.BRZ ordered. EDMS EDMS 19:10 19:07 Pt has an 20 gauge bang catheter. bo1 bo1 19:29 19:12 Differential Diagnosis Size of catheter has to be sized up to a 18 Fr. bo1 bo1
[2024-02-27 22:44] VITALS: BP 129/80; TEMP 98; O2SAT 95
== END 2024-02-27 22:35 | disposition home or self-care (01) ==
LOC: ER 18:07
DX: T83.038A Leakage of other urinary catheter, initial encounter (principal)
CPT/HCPCS: 99283

== ENCOUNTER 2024-04-02 12:38 | Inpatient (IN) | payer OTHER ==
--- OUTSIDE RECORDS SUMMARY | 2024-04-02 12:44 | XMS REPORT | Continuity of Care Document ---
Author Name Unknown Address [address] [facility] Jose Alfredo. [address] [place] [address] [facility] thconnect Address [address] [facility]. [address] [place] [address] Care Team Providers Care Layout Operator Name Role Phone Sonal Washington Attending [...] Number Effective Date Expirati on Date Source [facility] Dual Complete (HMO-POS D-SNP) [id number] 2023 00:00:00 2024 00:00:00 [facility] - DUAL ELIGIBLE (MEDICARE REPLACEMENT/ADVAN TAGE - HMO) [id number] 2022 00:00[place]PLACEMENT - HMO) [id number] 2018 00:00:00 [facility] - DUAL COMPLETE - DUAL ELIGIBLE - SNP (MEDICARE-MEDICAI D REPLACEMENT HMO) [id number] [facility] - [facility] - DUAL COMPLETE FOCUS (MEDICARE REPLACEMENT HMO) [id number] MEDICAID MC [id number] 2012 00:00:00 [facility] MEDICARE NOVITAS MB [id number] 2010 00:00:00 [facility] AMERIGROUP (Medicaid) [id number] 2018 00:00:00 [facility] Problems Condition Name Condition Details [...] 00 [facility] [id number] Functional quadripleg ia Problem [facility] [id number] Microcytic anemia Problem [facility] [id number] Pressure injury of deep tissue of sacral region Problem Common [facility] [id number] Chronic ulcer of lower extremity, right, with unspecifie d severity Problem Common [facility] [id number] MRSA infection Problem [facility] [id number] S/P PICC central line placement Problem Common [facility] Encounter for Patton catheter replacemen t Encounter for Patton catheter replacemen t Problem [facility] [id number] Incontinen ce of feces, unspecifie d fecal incontinen ce type Problem [facility] [id number] Urinary incontinen ce, unspecifie d type Problem [facility] [id number] Sacral osteomyeli tis Problem [facility] [id number] Loss of appetite Problem [facility] [id number] Seasonal allergies Problem [facility] [id number] Current mild episode of major depressive disorder without prior episode Problem [facility] Overweight Overweight Problem Co mmon [facility] [id number] Hypocalcem ia Problem [facility] [id number] Seasonal allergic rhinitis due to pollen Problem [facility] [id number] Other closed fracture of proximal end of right tibia, initial encounter Problem [facility] [id number] Other closed fracture of proximal end of right fibula, initial encounter Problem [facility] [id number] BMI 33.0-33.9, adult Problem [facility] General weakness General weakness Problem [facility] Pain in limb Pain in limb Problem [facility] 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 Problem [facility] Edema Edema leg Problem [facility] [id number] Other closed fracture of distal end of right femur, initial encounter Problem [facility] [id number] Other obesity due to excess calories Problem [facility] Peripheral neuropathy Peripheral neuropathy Problem [facility] Hypertensi on HTN (hypertens ion) Problem [facility] Gastroesop hageal reflux disease GERD (gastroeso phageal reflux disease) Problem [facility] Anemia Anemia Problem [facility] Hypothyroi dism Hypothyroi dism Problem [facility] Rheumatoid arthritis Rheumatoid arthritis Problem [facility] Hyperlipid emia Hyperlipid emia Problem [facility] [id number] +5th digit eff 11/27/19*[place] stroesopha geal reflux disease with esophagiti s Problem [facility] [id number] Neuropathy Problem Com mon [facility] [id number] Wheelchair dependence Problem [facility] Knee pain Knee pain Problem Comm on [facility] [id number] Chronic seasonal allergic rhinitis Problem [facility] Dependence on wheelchair Uses wheelchair Problem [facility] Acquired genu valgum Valgus deformity, not elsewhere classified , right knee Problem [facility] [id number] Influenza vaccinatio n administer ed at current visit Problem [facility] [id number] Pressure injury of sacral region, stage 4 Problem [facility] [id number] Leukocytos is, unspecifie d type Problem [facility] Allergies, Adverse Reactions, Alerts Allergy Name Allergy Type Status Severity Reaction(s) Onset Date Inactive Date Treating Clinician Comments Source Penicill ins DA Active SV BREAKOUT IN HIVES UNDER THE SKIN 2022-02 00:00: 00 [facility] lisinopr il DA Active SV CAUSE ME TO HAVE KIDNEY FAILURE 2022-02 00:00: 00 [facility] iodine DA Active SV THROAT SWELLING UP, DIFFICULTY BREATHING 2022-02 00:00: 00 [facility] azithrom ycin DA Active SV HIVES 2022-02 00:00: 00 [facility] shellfis h derived FA Active SV THROAT SWELLING UP, DIFFICULTY BREATHING 2022-02 00:00: 00 [facility] shrimp FA Active SV THROAT SWELLS, DIFFICULTY BREATHING 2022-02 0 00:00: 00 [facility] crab FA Active SV THROAT SWELLS, DIFFICULTY BREATHING 2022-02 0 00:00: 00 [facility] azithrom ycin DA Active SV HIVES 2022-02 0-13 00:00: 00 [facility] Penicill ins DA Active SV BREAKOUT IN HIVES UNDER THE SKIN 10-12 00:00: 00 [facility] lisinopr il DA Active SV CAUSE ME TO HAVE KIDNEY FAILURE 10-12 00:00: 00 [facility] iodine DA Active SV THROAT SWELLING UP, DIFFICULTY BREATHING 10-12 00:00: 00 [facility] shellfis h derived FA Active SV THROAT SWELLING UP, DIFFICULTY BREATHING 10-12 00:00: 00 [facility] shrimp FA Active SV THROAT SWELLS, DIFFICULTY BREATHING 10-12 00:00: 00 [facility] crab FA Active SV THROAT SWELLS, DIFFICULTY BREATHING 10-12 00:00: 00 [facility] LISINOPR [place] Allergy to substanc e Active 2013-02 0 00:00: 00 [facility] PENICILL IN Allergy to substanc e Active 2013-02 00:00: 00 [facility] [id number] Drug allergy Active Unknown [facility] [id number] Drug allergy Active Unknown [facility] Amoxicil edwin Allergy to substanc e Active [...] Quantity Comments Source History of Tobacco Use [facility] Sex Assigned At [facility] Smoking Status Start Date Stop Date Source Never Smoker [facility] Medications Ordered Medication Name Filled Medication Name Start Date Stop Date Current Medication? Ordering Clinician Indication Dosage Frequency Signature (SIG) Comments Components Source Calcium 600 MG Calcium 600 MG - 00:00: 00 No 1{table t_with_ meals} BID Calcium 600 MG Cephalexin 500 MG Cephalexin 500 MG 2023-02 00:00: 00 No 1{table t} BID Cephalexin 500 MG Levothyroxi ne Sodium 150 MCG Levothyroxi ne Sodium 150 MCG 2023-02 00:00: 00 No QD Levothyrox ine Sodium 150 MCG Valsartan 80 MG Valsartan 80 MG 2023-02- 00:00: 00 No 1{table t} QD Valsartan 80 MG Imodium A-D 2 MG Imodium A-D 2 MG 2023-02 00:00: 00 No 1{table t_as_ne eded} QID Imodium A-D 2 MG Levothyroxi ne Sodium 125 MCG Levothyroxi ne Sodium 125 MCG 09-16 00:00: 00 No QD Levothyrox ine Sodium 125 MCG Klor-Con 20 MEQ Klor-Con 20 MEQ 2023-09-11 00:00: 00 No 1{packe t_with_ food} BID Klor-Con 20 MEQ Lactinex - Lactinex - 2023-08-30 00:00: 00 No Lactinex - Folic Acid [...] MG No Doxycyclin e Hyclate 100 MG Mirtazapine 15 MG Mirtazapine 15 MG No 1{table t_at_be dtime} QD Mirtazapin e 15 MG Mirtazapine 30 MG Mirtazapine 30 MG No 1{table t_at_be dtime} QD Mirtazapin e 30 MG Levothyroxi ne Sodium 150 MCG Levothyroxi ne Sodium 150 MCG No QD Levothyrox ine Sodium 150 MCG methotrexat e sodium 2.5 mg tablet methotrexat e sodium 2.5 mg tablet No methotrexa te sodium 2.5 mg tablet [facility] metronidazo le 500 mg tablet metronidazo le 500 mg tablet No metronidaz ole 500 mg tablet [facility] Immunizations Ordered Immunization Name Filled Immunization Name Date Status Comments Source Flucelvax - single dose syringe Flucelvax - single dose syringe 2022-01-31 15:24:00 Completed [facility] Flucelvax - single dose syringe Flucelvax - single dose syringe 2022-01-31 15:24:00 Completed [facility] Moderna COVID-19 Vaccine Moderna COVID-19 Vaccine 2020-09-03 11:38:00 Completed [facility] Moderna COVID-19 Vaccine Moderna COVID-19 Vaccine 2020-09-03 11:38:00 Completed [facility] Moderna COVID-19 Vaccine Moderna COVID-19 Vaccine 2020-09-03 11:38:00 Completed [facility] Moderna COVID-19 Vaccine Moderna COVID-19 Vaccine 2020-09-03 11:38:00 Completed [facility] Moderna COVID-19 Vaccine Moderna COVID-19 Vaccine 2020-09-03 11:38:00 Completed [facility] Moderna COVID-19 Vaccine Moderna COVID-19 Vaccine 2020-09-03 11:38:00 Completed [facility] Moderna COVID-19 Vaccine Moderna COVID-19 Vaccine 2020-09-03 11:38:00 Completed [facility] Moderna COVID-19 Vaccine Moderna COVID-19 Vaccine 2020-09-03 11:38:00 Completed [facility] Afluria Afluria 2020-01-29 10:05:00 Completed [facility] Afluria Afluria 2020-01-29 10:05:00 Completed [facility] Afluria Afluria 2020-01-29 10:05:00 Completed [facility] Afluria Afluria 2020-01-29 10:05:00 Completed [facility] Afluria Afluria 2020-01-29 10:05:00 Completed [facility] Afluria Afluria 2020-01-29 10:05:00 Completed [facility] Afluria Afluria 2020-01-29 10:05:00 Completed [facility] Afluria Afluria 2020-01-29 10:05:00 Completed [facility] Flu FluAD 2018-11-08 09:31:00 Completed [facility] FluAD FluAD 2018-11-08 09:31:00 Completed [facility] FluAD FluAD 2018-11-08 09:31:00 Completed [facility] FluAD FluAD 2018-11-08 09:31:00 Completed [facility] FluAD FluAD 2018-11-08 09:31:00 Completed [facility] FluAD FluAD 2018-11-08 09:31:00 Completed [facility] FluAD FluAD 2018-11-08 09:31:00 Completed [facility] FluAD FluAD 2018-11-08 09:31:00 Completed [facility] FluAD FluAD 2018-11-08 00:00:00 Completed [facility] FLUZONE HIGH DOSE OVER 65 FLUZONE HIGH DOSE OVER 65 2017-10-31 12:06:00 Completed [facility] FLUZONE HIGH DOSE OVER 65 FLUZONE HIGH DOSE OVER 65 2017-10-31 12:06:00 Completed [facility] FLUZONE HIGH DOSE OVER 65 FLUZONE HIGH DOSE OVER 65 2017-10-31 12:06:00 Completed [facility] FLUZONE HIGH DOSE OVER 65 FLUZONE HIGH DOSE OVER 65 2017-10-31 12:06:00 Completed [facility] FLUZONE HIGH DOSE OVER 65 FLUZONE HIGH DOSE OVER 65 2017-10-31 12:06:00 Completed [facility] FLUZONE HIGH DOSE OVER 65 FLUZONE HIGH DOSE OVER 65 2017-10-31 12:06:00 Completed [facility] FLUZONE HIGH DOSE OVER 65 FLUZONE HIGH DOSE OVER 65 2017-10-31 12:06:00 Completed [facility] FLUZONE HIGH DOSE OVER 65 FLUZONE HIGH DOSE OVER 65 2017-10-31 12:06:00 Completed [facility] Prevnar 20 (PCV20) Prevnar 20 (PCV20) Unknown [facility] Moderna COVID-19 Vaccine Unknown Completed [facility] Fluarix (IIV4) - SDS - 0.5mL Fluarix (IIV4) - SDS - 0.5mL Unknown Completed [facility] FluAD FluAD Unknown Completed [facility] Afluria Afluria Unknown Completed [facility] Flucelvax (ccIIV4) - SDS - 0.5mL Flucelvax (ccIIV4) - SDS - 0.5mL Unknown Completed [facility] FLUZONE HIGH DOSE OVER 65 FLUZONE HIGH DOSE OVER 65 Unknown Completed [facility] Prevnar 20 (PCV20) Prevnar 20 (PCV20) Unknown Completed [facility] Moderna COVID-19 Vaccine Moderna COVID-19 Vaccine Unknown Completed [facility] Fluarix (IIV4) - SDS - 0.5mL Fluarix (IIV4) - SDS - 0.5mL Unknown Completed [facility] FluAD FluAD Unknown Completed [facility] Afluria Afluria Unknown Completed [facility] Flucelvax (ccIIV4) - SDS - 0.5mL Flucelvax (ccIIV4) - SDS - 0.5mL Unknown Completed [facility] FLUZONE HIGH DOSE OVER 65 FLUZONE HIGH DOSE OVER 65 Unknown Completed [facility] Prevnar 20 (PCV20) Prevnar 20 (PCV20) Unknown [facility] Vaccine Moderna COVID-19 Vaccine Unknown Completed [facility] Fluarix (IIV4) - SDS - 0.5mL Fluarix (IIV4) - SDS - 0.5mL Unknown Completed [facility] FluAD FluAD Unknown Completed [facility] Afluria Afluria Unknown Completed [facility] Flucelvax (ccIIV4) - SDS - 0.5mL Flucelvax (ccIIV4) - SDS - 0.5mL Unknown Completed [facility] FLUZONE HIGH DOSE OVER 65 FLUZONE HIGH DOSE OVER 65 Unknown Completed [facility] Prevnar 20 (PCV20) Prevnar 20 (PCV20) Unknown [facility] COVID-[facility] Vaccine Moderna COVID-19 Vaccine Unknown Completed [facility] Fluarix (IIV4) - SDS - 0.5mL Fluarix (IIV4) - SDS - 0.5mL Unknown Completed [facility] FluAD FluAD Unknown Completed [facility] Afluria Afluria Unknown Completed [facility] Flucelvax (ccIIV4) - SDS - 0.5mL Flucelvax (ccIIV4) - SDS - 0.5mL Unknown Completed [facility] FLUZONE HIGH DOSE OVER 65 FLUZONE HIGH DOSE OVER 65 Unknown Completed [facility] Prevnar 20 (PCV20) Prevnar 20 (PCV20) Unknown Completed [facility] Moderna COVID-19 Vaccine Moderna COVID-19 Vaccine Unknown Completed [facility] Fluarix (IIV4) - SDS - 0.5mL Fluarix (IIV4) - SDS - 0.5mL Unknown Completed [facility] FluAD FluAD Unknown Completed [facility] Afluria Afluria Unknown Completed [facility] Flucelvax (ccIIV4) - SDS - 0.5mL Flucelvax (ccIIV4) - SDS - 0.5mL Unknown Completed [facility] FLUZONE HIGH DOSE OVER 65 FLUZONE HIGH DOSE OVER 65 Unknown Completed [facility] Prevnar 20 (PCV20) Prevnar 20 (PCV20) Unknown Completed [facility] Moderna COVID-19 Vaccine Moderna COVID-19 Vaccine Unknown Completed [facility] Fluarix (IIV4) - SDS - 0.5mL Fluarix (IIV4) - SDS - 0.5mL Unknown Completed [facility] FluAD FluAD Unknown Completed [facility] Afluria Afluria Unknown Completed [facility] Flucelvax (ccIIV4) - SDS - 0.5mL Flucelvax (ccIIV4) - SDS - 0.5mL Unknown Completed [facility] FLUZONE HIGH DOSE OVER 65 FLUZONE HIGH DOSE OVER 65 Unknown Completed [facility] Prevnar 20 (PCV20) Prevnar 20 (PCV20) Unknown Completed [facility] Moderna COVID-19 Vaccine Moderna COVID-19 Vaccine Unknown Completed [facility] Fluarix (IIV4) - SDS - 0.5mL Fluarix (IIV4) - SDS - 0.5mL Unknown Completed [facility] FluAD FluAD Unknown Completed [facility] Afluria Afluria Unknown Completed [facility] Flucelvax (ccIIV4) - SDS - 0.5mL Flucelvax (ccIIV4) - SDS - 0.5mL Unknown Completed [facility] FLUZONE HIGH DOSE OVER 65 FLUZONE HIGH DOSE OVER 65 Unknown Completed [facility] Prevnar 20 (PCV20) Prevnar 20 (PCV20) Unknown Completed [facility] Moderna COVID-19 Vaccine Moderna COVID-19 Vaccine Unknown Completed [facility] Fluarix (IIV4) - SDS - 0.5mL Fluarix (IIV4) - SDS - 0.5mL Unknown Completed [facility] FluAD FluAD Unknown Completed [facility] Afluria Afluria Unknown Completed [facility] Flucelvax (ccIIV4) - SDS - 0.5mL Flucelvax (ccIIV4) - SDS - 0.5mL Unknown Completed [facility] FLUZONE HIGH DOSE OVER 65 FLUZONE HIGH DOSE OVER 65 Unknown Completed [facility] Prevnar 20 (PCV20) Prevnar 20 (PCV20) Unknown Completed [facility] Moderna COVID-19 Vaccine Moderna COVID-19 Vaccine Unknown Completed [facility] Fluarix (IIV4) - SDS - 0.5mL Fluarix (IIV4) - SDS - 0.5mL Unknown Completed [facility] FluAD FluAD Unknown Completed [facility] Afluria Afluria Unknown Completed [facility] Flucelvax (ccIIV4) - SDS - 0.5mL Flucelvax (ccIIV4) - SDS - 0.5mL Unknown Completed [facility] FLUZONE HIGH DOSE OVER 65 FLUZONE HIGH DOSE OVER 65 Unknown Completed [facility] Prevnar 20 (PCV20) Prevnar 20 (PCV20) Unknown Completed [facility] Moderna COVID-19 Vaccine Moderna COVID-19 Vaccine Unknown Completed [facility] Fluarix (IIV4) - SDS - 0.5mL Fluarix (IIV4) - SDS - 0.5mL Unknown Completed [facility] FluAD FluAD Unknown Completed [facility] Afluria Afluria Unknown Completed [facility] Flucelvax (ccIIV4) - SDS - 0.5mL Flucelvax (ccIIV4) - SDS - 0.5mL Unknown Completed [facility] FLUZONE HIGH DOSE OVER 65 FLUZONE HIGH DOSE OVER 65 Unknown Completed [facility] Prevnar 20 (PCV20) Prevnar 20 (PCV20) Unknown Completed [facility] Moderna COVID-19 Vaccine Moderna COVID-19 Vaccine Unknown Completed [facility] Fluarix (IIV4) - SDS - 0.5mL Fluarix (IIV4) - SDS - 0.5mL Unknown Completed [facility] FluAD FluAD Unknown Completed [facility] Afluria Afluria Unknown Completed [facility] Flucelvax (ccIIV4) - SDS - 0.5mL Flucelvax (ccIIV4) - SDS - 0.5mL Unknown Completed [facility] FLUZONE HIGH DOSE OVER 65 FLUZONE HIGH DOSE OVER 65 Unknown Completed [facility] Prevnar 20 (PCV20) Prevnar 20 (PCV20) Unknown Completed [facility] Moderna COVID-19 Vaccine Moderna COVID-19 Vaccine Unknown Completed [facility] Fluarix (IIV4) - SDS - 0.5mL Fluarix (IIV4) - SDS - 0.5mL Unknown Completed [facility] FluAD FluAD Unknown Completed [facility] Afluria Afluria Unknown Completed [facility] Flucelvax (ccIIV4) - SDS - 0.5mL Flucelvax (ccIIV4) - SDS - 0.5mL Unknown Completed [facility] FLUZONE HIGH DOSE OVER 65 FLUZONE HIGH DOSE OVER 65 Unknown Completed [facility] Prevnar 20 (PCV20) Prevnar 20 (PCV20) Unknown Completed [facility] Moderna COVID-19 Vaccine Moderna COVID-19 Vaccine Unknown Completed [facility] Fluarix (IIV4) - SDS - 0.5mL Fluarix (IIV4) - SDS - 0.5mL Unknown Completed [facility] FluAD FluAD Unknown Completed [facility] Afluria Afluria Unknown Completed [facility] Flucelvax (ccIIV4) - SDS - 0.5mL Flucelvax (ccIIV4) - SDS - 0.5mL Unknown Completed [facility] FLUZONE HIGH DOSE OVER 65 FLUZONE HIGH DOSE OVER 65 Unknown Completed [facility] Prevnar 20 (PCV20) Prevnar 20 (PCV20) Unknown [facility] Vaccine Moderna COVID-19 Vaccine Unknown Completed [facility] Fluarix (IIV4) - SDS - 0.5mL Fluarix (IIV4) - SDS - 0.5mL Unknown Completed [facility] FluAD FluAD Unknown Completed [facility] Afluria Afluria Unknown Completed [facility] Flucelvax (ccIIV4) - SDS - 0.5mL Flucelvax (ccIIV4) - SDS - 0.5mL Unknown Completed [facility] FLUZONE HIGH DOSE OVER 65 FLUZONE HIGH DOSE OVER 65 Unknown Completed [facility] Prevnar 20 (PCV20) Prevnar 20 (PCV20) Unknown Completed [facility] Moderna COVID-19 Vaccine Moderna COVID-19 Vaccine Unknown Completed [facility] Fluarix (IIV4) - SDS - 0.5mL Fluarix (IIV4) - SDS - 0.5mL Unknown Completed [facility] FluAD FluAD Unknown Completed [facility] Afluria Afluria Unknown Completed [facility] Flucelvax (ccIIV4) - SDS - 0.5mL Flucelvax (ccIIV4) - SDS - 0.5mL Unknown Completed [facility] FLUZONE HIGH DOSE OVER 65 FLUZONE HIGH DOSE OVER 65 Unknown Completed [facility] Prevnar 20 (PCV20) Prevnar 20 (PCV20) Unknown Completed [facility] Moderna COVID-19 Vaccine Moderna COVID-19 Vaccine Unknown Completed [facility] Fluarix (IIV4) - SDS - 0.5mL Fluarix (IIV4) - SDS - 0.5mL Unknown Completed [facility] FluAD FluAD Unknown Completed [facility] Afluria Afluria Unknown Completed [facility] Flucelvax (ccIIV4) - SDS - 0.5mL Flucelvax (ccIIV4) - SDS - 0.5mL Unknown Completed [facility] FLUZONE HIGH DOSE OVER 65 FLUZONE HIGH DOSE OVER 65 Unknown Completed [facility] Prevnar 20 (PCV20) Prevnar 20 (PCV20) Unknown Completed [facility] Moderna COVID-19 Vaccine Moderna COVID-19 Vaccine Unknown Completed [facility] Fluarix (IIV4) - SDS - 0.5mL Fluarix (IIV4) - SDS - 0.5mL Unknown Completed [facility] FluAD FluAD Unknown Completed [facility] Afluria Afluria Unknown Completed [facility] Flucelvax (ccIIV4) - SDS - 0.5mL Flucelvax (ccIIV4) - SDS - 0.5mL Unknown Completed [facility] FLUZONE HIGH DOSE OVER 65 FLUZONE HIGH DOSE OVER 65 Unknown Completed [facility] Prevnar 20 (PCV20) Prevnar 20 (PCV20) Unknown Completed [facility] Moderna COVID-19 Vaccine Moderna COVID-19 Vaccine Unknown Completed [facility] Fluarix (IIV4) - SDS - 0.5mL Fluarix (IIV4) - SDS - 0.5mL Unknown Completed [facility] FluAD FluAD Unknown Completed [facility] Afluria Afluria Unknown Completed [facility] Flucelvax (ccIIV4) - SDS - 0.5mL Flucelvax (ccIIV4) - SDS - 0.5mL Unknown Completed [facility] FLUZONE HIGH DOSE OVER 65 FLUZONE HIGH DOSE OVER 65 Unknown Completed [facility] Prevnar 20 (PCV20) Prevnar 20 (PCV20) Unknown [facility] Vaccine Moderna COVID-19 Vaccine Unknown Completed [facility] Fluarix (IIV4) - SDS - 0.5mL Fluarix (IIV4) - SDS - 0.5mL Unknown Completed [facility] FluAD FluAD Unknown Completed [facility] Afluria Afluria Unknown Completed [facility] Flucelvax (ccIIV4) - SDS - 0.5mL Flucelvax (ccIIV4) - SDS - 0.5mL Unknown Completed [facility] FLUZONE HIGH DOSE OVER 65 FLUZONE HIGH DOSE OVER 65 Unknown Completed [facility] Prevnar 20 (PCV20) Prevnar 20 (PCV20) Unknown Completed [facility] Moderna COVID-19 Vaccine Moderna COVID-19 Vaccine Unknown Completed [facility] Fluarix (IIV4) - SDS - 0.5mL Fluarix (IIV4) - SDS - 0.5mL Unknown Completed [facility] FluAD FluAD Unknown Completed [facility] Afluria Afluria Unknown Completed [facility] Flucelvax (ccIIV4) - SDS - 0.5mL Flucelvax (ccIIV4) - SDS - 0.5mL Unknown [facility] [facility] FLUZONE HIGH DOSE OVER 65 FLUZONE HIGH DOSE OVER 65 Unknown Completed [facility] Prevnar 20 (PCV20) Prevnar 20 (PCV20) Unknown Completed [facility] Moderna COVID-19 Vaccine Moderna COVID-19 Vaccine Unknown Completed [facility] Fluarix (IIV4) - SDS - 0.5mL Fluarix (IIV4) - SDS - 0.5mL Unknown Completed [facility] FluAD FluAD Unknown Completed [facility] Afluria Afluria Unknown Completed [facility] Flucelvax (ccIIV4) - SDS - 0.5mL Flucelvax (ccIIV4) - SDS - 0.5mL Unknown Completed [facility] FLUZONE HIGH DOSE OVER 65 FLUZONE HIGH DOSE OVER 65 Unknown Completed [facility] Prevnar 20 (PCV20) Prevnar 20 (PCV20) Unknown Completed [facility] Moderna COVID-19 Vaccine Moderna COVID-19 Vaccine Unknown Completed [facility] Fluarix (IIV4) - SDS - 0.5mL Fluarix (IIV4) - SDS - 0.5mL Unknown Completed [facility] FluAD FluAD Unknown Completed [facility] Afluria Afluria Unknown Completed [facility] Flucelvax (ccIIV4) - SDS - 0.5mL Flucelvax (ccIIV4) - SDS - 0.5mL Unknown Completed [facility] FLUZONE HIGH DOSE OVER 65 FLUZONE HIGH DOSE OVER 65 Unknown Completed [facility] Prevnar 20 (PCV20) Prevnar 20 (PCV20) Unknown Completed [facility] Moderna COVID-19 Vaccine Moderna COVID-19 Vaccine Unknown Completed [facility] Fluarix (IIV4) - SDS - 0.5mL Fluarix (IIV4) - SDS - 0.5mL Unknown Completed [facility] FluAD FluAD Unknown Completed [facility] Afluria Afluria Unknown Completed [facility] Flucelvax (ccIIV4) - SDS - 0.5mL Flucelvax (ccIIV4) - SDS - 0.5mL Unknown Completed [facility] FLUZONE HIGH DOSE OVER 65 FLUZONE HIGH DOSE OVER 65 Unknown Completed [facility] Prevnar 20 (PCV20) Prevnar 20 (PCV20) Unknown Completed [facility] Moderna COVID-19 Vaccine Moderna COVID-19 Vaccine Unknown Completed [facility] Fluarix (IIV4) - SDS - 0.5mL Fluarix (IIV4) - SDS - 0.5mL Unknown Completed [facility] FluAD FluAD Unknown Completed [facility] Afluria Afluria Unknown Completed [facility] Flucelvax (ccIIV4) - SDS - 0.5mL Flucelvax (ccIIV4) - SDS - 0.5mL Unknown Completed [facility] FLUZONE HIGH DOSE OVER 65 FLUZONE HIGH DOSE OVER 65 Unknown Completed [facility] Prevnar 20 (PCV20) Prevnar 20 (PCV20) Unknown Completed [facility] Moderna COVID-19 Vaccine Moderna COVID-19 Vaccine Unknown Completed [facility] Fluarix Fluarix Unknown Completed [facility] FluAD FluAD Unknown Completed [facility] Afluria Afluria Unknown Completed [facility] Flucelvax - single dose syringe Flucelvax - single dose syringe Unknown Completed [facility] FLUZONE HIGH DOSE OVER 65 FLUZONE HIGH DOSE OVER 65 Unknown Completed [facility] Prevnar 20 (PCV20) Prevnar 20 (PCV20) Unknown Completed [facility] Moderna COVID-19 Vaccine Moderna COVID-19 Vaccine Unknown Completed [facility] Fluarix Fluarix Unknown Completed [facility] FluAD FluAD Unknown Completed [facility] Afluria Afluria Unknown Completed [facility] Flucelvax - single dose syringe Flucelvax - single dose syringe Unknown Completed [facility] FLUZONE HIGH DOSE OVER 65 FLUZONE HIGH DOSE OVER 65 Unknown Completed [facility] Prevnar 20 (PCV20) Prevnar 20 (PCV20) Unknown Completed [facility] Moderna COVID-19 Vaccine Moderna COVID-19 Vaccine Unknown Completed [facility] Fluarix Fluarix Unknown Completed [facility] FluAD FluAD Unknown Completed [facility] Afluria Afluria Unknown Completed [facility] Flucelvax - single dose syringe Flucelvax - single dose syringe Unknown Completed [facility] FLUZONE HIGH DOSE OVER 65 FLUZONE HIGH DOSE OVER 65 Unknown Completed [facility] Prevnar 20 (PCV20) Prevnar 20 (PCV20) Unknown Completed [facility] Moderna COVID-19 Vaccine Moderna COVID-19 Vaccine Unknown Completed [facility] Fluarix (IIV4) - SDS - 0.5mL Fluarix (IIV4) - SDS - 0.5mL Unknown Completed [facility] FluAD FluAD Unknown Completed [facility] Afluria Afluria Unknown Completed [facility] Flucelvax (ccIIV4) - SDS - 0.5mL Flucelvax (ccIIV4) - SDS - 0.5mL Unknown Completed [facility] FLUZONE HIGH DOSE OVER 65 FLUZONE HIGH DOSE OVER 65 Unknown Completed [facility] Prevnar 20 (PCV20) Prevnar 20 (PCV20) Unknown Completed [facility] Moderna COVID-19 Vaccine Moderna COVID-19 Vaccine Unknown Completed [facility] Fluarix (IIV4) - SDS - 0.5mL Fluarix (IIV4) - SDS - 0.5mL Unknown Completed [facility] FluAD FluAD Unknown Completed [facility] Afluria Afluria Unknown Completed [facility] Flucelvax (ccIIV4) - SDS - 0.5mL Flucelvax (ccIIV4) - SDS - 0.5mL Unknown Completed [facility] FLUZONE HIGH DOSE OVER 65 FLUZONE HIGH DOSE OVER 65 Unknown Completed [facility] Prevnar 20 (PCV20) Prevnar 20 (PCV20) Unknown Completed [facility] Moderna COVID-19 Vaccine Moderna COVID-19 Vaccine Unknown Completed [facility] Fluarix (IIV4) - SDS - 0.5mL Fluarix (IIV4) - SDS - 0.5mL Unknown Completed [facility] FluAD FluAD Unknown Completed [facility] Afluria Afluria Unknown Completed [facility] Flucelvax (ccIIV4) - SDS - 0.5mL Flucelvax (ccIIV4) - SDS - 0.5mL Unknown Completed [facility] FLUZONE HIGH DOSE OVER 65 FLUZONE HIGH DOSE OVER 65 Unknown Completed [facility] Prevnar 20 (PCV20) Prevnar 20 (PCV20) Unknown Completed [facility] Moderna COVID-19 Vaccine Moderna COVID-19 Vaccine Unknown Completed [facility] Fluarix (IIV4) - SDS - 0.5mL Fluarix (IIV4) - SDS - 0.5mL Unknown Completed [facility] FluAD FluAD Unknown Completed [facility] Afluria Afluria Unknown Completed [facility] Flucelvax (ccIIV4) - SDS - 0.5mL Flucelvax (ccIIV4) - SDS - 0.5mL Unknown Completed [facility] FLUZONE HIGH DOSE OVER 65 FLUZONE HIGH DOSE OVER 65 Unknown Completed [facility] Prevnar 20 (PCV20) Prevnar 20 (PCV20) Unknown Completed [facility] Moderna COVID-19 Vaccine Moderna COVID-19 Vaccine Unknown Completed [facility] Fluarix (IIV4) - SDS - 0.5mL Fluarix (IIV4) - SDS - 0.5mL Unknown Completed [facility] FluAD FluAD Unknown Completed [facility] Afluria Afluria Unknown Completed [facility] Flucelvax (ccIIV4) - SDS - 0.5mL Flucelvax (ccIIV4) - SDS - 0.5mL Unknown Completed [facility] FLUZONE HIGH DOSE OVER 65 FLUZONE HIGH DOSE OVER 65 Unknown Completed [facility] Prevnar 20 (PCV20) Prevnar 20 (PCV20) Unknown Completed [facility] Moderna COVID-19 Vaccine Moderna COVID-19 Vaccine Unknown Completed [facility] Fluarix (IIV4) - SDS - 0.5mL Fluarix (IIV4) - SDS - 0.5mL Unknown Completed [facility] FluAD FluAD Unknown Completed [facility] Afluria Afluria Unknown Completed [facility] Flucelvax (ccIIV4) - SDS - 0.5mL Flucelvax (ccIIV4) - SDS - 0.5mL Unknown Completed [facility] FLUZONE HIGH DOSE OVER 66 FLUZONE HIGH DOSE OVER 65 Unknown Completed [facility] Prevnar 20 (PCV20) Prevnar 20 (PCV20) Unknown Completed [facility] Moderna COVID-19 Vaccine Moderna COVID-19 Vaccine Unknown Completed [facility] Fluarix (IIV4) - SDS - 0.5mL Fluarix (IIV4) - SDS - 0.5mL Unknown Completed [facility] FluAD FluAD Unknown Completed [facility] Afluria Afluria Unknown Completed [facility] Flucelvax (ccIIV4) - SDS - 0.5mL Flucelvax (ccIIV4) - SDS - 0.5mL Unknown Completed [facility] FLUZONE HIGH DOSE OVER 65 FLUZONE HIGH DOSE OVER 65 Unknown Completed [facility] Prevnar 20 (PCV20) Prevnar 20 (PCV20) Unknown Completed [facility] Moderna COVID-19 Vaccine Moderna COVID-19 Vaccine Unknown Completed [facility] Fluarix (IIV4) - SDS - 0.5mL Fluarix (IIV4) - SDS - 0.5mL Unknown Completed [facility] FluAD FluAD Unknown Completed [facility] Afluria Afluria Unknown Completed [facility] Flucelvax (ccIIV4) - SDS - 0.5mL Flucelvax (ccIIV4) - SDS - 0.5mL Unknown Completed [facility] FLUZONE HIGH DOSE OVER 66 FLUZONE HIGH DOSE OVER 65 Unknown Completed [facility] Prevnar 20 (PCV20) Prevnar 20 (PCV20) Unknown Completed [facility] Moderna COVID-19 Vaccine Moderna COVID-19 Vaccine Unknown Completed [facility] Fluarix (IIV4) - SDS - 0.5mL Fluarix (IIV4) - SDS - 0.5mL Unknown Completed [facility] FluAD FluAD Unknown Completed [facility] Afluria Afluria Unknown Completed [facility] Flucelvax (ccIIV4) - SDS - 0.5mL Flucelvax (ccIIV4) - SDS - 0.5mL Unknown Completed [facility] FLUZONE HIGH DOSE OVER 65 FLUZONE HIGH DOSE OVER 65 Unknown Completed [facility] Prevnar 20 (PCV20) Prevnar 20 (PCV20) Unknown Completed [facility] Moderna COVID-19 Vaccine Moderna COVID-19 Vaccine Unknown Completed [facility] Fluarix (IIV4) - SDS - 0.5mL Fluarix (IIV4) - SDS - 0.5mL Unknown Completed [facility] FluAD FluAD Unknown Completed [facility] Afluria Afluria Unknown Completed [facility] Flucelvax (ccIIV4) - SDS - 0.5mL Flucelvax (ccIIV4) - SDS - 0.5mL Unknown Completed [facility] FLUZONE HIGH DOSE OVER 65 FLUZONE HIGH DOSE OVER 65 Unknown Completed [facility] Prevnar 20 (PCV20) Prevnar 20 (PCV20) Unknown Completed [facility] Moderna COVID-19 Vaccine Moderna COVID-19 Vaccine Unknown Completed [facility] Fluarix (IIV4) - SDS - 0.5mL Fluarix (IIV4) - SDS - 0.5mL Unknown Completed [facility] FluAD FluAD Unknown Completed [facility] Afluria Afluria Unknown Completed [facility] Flucelvax (ccIIV4) - SDS - 0.5mL Flucelvax (ccIIV4) - SDS - 0.5mL Unknown Completed [facility] FLUZONE HIGH DOSE OVER 65 FLUZONE HIGH DOSE OVER 65 Unknown Completed [facility] Prevnar 20 (PCV20) Prevnar 20 (PCV20) Unknown Completed [facility] Moderna COVID-19 Vaccine Moderna COVID-19 Vaccine Unknown Completed [facility] Fluarix (IIV4) - SDS - 0.5mL Fluarix (IIV4) - SDS - 0.5mL Unknown Completed [facility] FluAD FluAD Unknown Completed [facility] Afluria Afluria Unknown Completed [facility] Flucelvax (ccIIV4) - SDS - 0.5mL Flucelvax (ccIIV4) - SDS - 0.5mL Unknown Completed [facility] FLUZONE HIGH DOSE OVER 65 FLUZONE HIGH DOSE OVER 65 Unknown Completed [facility] Prevnar 20 (PCV20) Prevnar 20 (PCV20) Unknown Completed [facility] Moderna COVID-19 Vaccine Moderna COVID-19 Vaccine Unknown Completed [facility] Fluarix (IIV4) - SDS - 0.5mL Fluarix (IIV4) - SDS - 0.5mL Unknown Completed [facility] FluAD FluAD Unknown Completed [facility] Afluria Afluria Unknown Completed [facility] Flucelvax (ccIIV4) - SDS - 0.5mL Flucelvax (ccIIV4) - SDS - 0.5mL Unknown Completed [facility] FLUZONE HIGH DOSE OVER 65 FLUZONE HIGH DOSE OVER 65 Unknown Completed [facility] Prevnar 20 (PCV20) Prevnar 20 (PCV20) Unknown Completed [facility] Moderna COVID-19 Vaccine Moderna COVID-19 Vaccine Unknown Completed [facility] Fluarix (IIV4) - SDS - 0.5mL Fluarix (IIV4) - SDS - 0.5mL Unknown Completed [facility] FluAD FluAD Unknown Completed [facility] Afluria Afluria Unknown Completed [facility] Flucelvax (ccIIV4) - SDS - 0.5mL Flucelvax (ccIIV4) - SDS - 0.5mL Unknown Completed [facility] FLUZONE HIGH DOSE OVER 65 FLUZONE HIGH DOSE OVER 65 Unknown Completed [facility] Vital Signs Vital Name Observation Time Observation Value Comments S ource height 2023-08-31 08:40:00 68 [in_i] Commo n [facility] weight 2023-08-31 08:40:00 167.5 [lb_av] Co mmon [facility] temperature 2023-08-31 08:40:00 98.2 [degF] Com mon [facility] bmi 2023-08-31 08:40:00 25.47 kg/m2 Comm on [facility] oximetry 2023-08-31 08:40:00 99 % Commo n [facility] respiratory rate 2023-08-31 08:40:00 16 /min Common [facility] blood pressure systolic 2023-08-31 08:40:00 114 mm[Hg] [facility] pressure diastolic 2023-08-31 08:40:00 71 mm[Hg] Common [facility] height 2023-06-11 07:40:00 68 [in_i] Commo n [facility] weight 2023-06-11 07:40:00 165 [lb_av] Comm on [facility] temperature 2023-06-11 07:40:00 98.6 [degF] Com mon [facility] bmi 2023-06-11 07:40:00 25.09 kg/m2 Comm on [facility] height 2023-05-17 08:50:00 68 [in_i] Commo n [facility] weight 2023-05-17 08:50:00 220.0 [lb_av] Co mmon [facility] temperature 2023-05-17 08:50:00 97.4 [degF] Com mon [facility] bmi 2023-05-17 08:50:00 33.45 kg/m2 Comm on [facility] oximetry 2023-05-17 08:50:00 99 % Commo n [facility] respiratory rate 2023-05-17 08:50:00 17 /min [facility] blood pressure systolic 2023-05-17 08:50:00 126 mm[Hg] [facility] blood pressure diastolic 2023-05-17 08:50:00 69 mm[Hg] Common [facility] height 2023-05-17 08:50:00 68 [in_i] Commo n [facility] weight 2023-05-17 08:50:00 220.0 [lb_av] Co mmon [facility] temperature 2023-05-17 08:50:00 97.4 [degF] Com mon [facility] bmi 2023-05-17 08:50:00 33.45 kg/m2 Comm on [facility] oximetry 2023-05-17 08:50:00 99 % Commo n [facility] respiratory rate 2023-05-17 08:50:00 17 /min [facility] blood pressure systolic 2023-05-17 08:50:00 126 mm[Hg] [facility] blood pressure diastolic 2023-05-17 08:50:00 69 mm[Hg] [facility] height 2023-04-02 08:00:00 68 [in_i] Commo n [facility] weight 2023-04-02 08:00:00 220 [lb_av] Comm on [facility] bmi 2023-04-02 08:00:00 33.45 kg/m2 Comm on [facility] Body Weight 2023-03-20 00:00:00 167 [lb_av] [facility] Height 2023-03-20 00:00:00 68 [in_i] [facility] BMI (Body Mass Index) 2023-03-20 00:00:00 25.4 kg/m2 [facility] height 2023-03-09 09:00:00 68 [in_i] Commo n [facility] weight 2023-03-09 09:00:00 221 [lb_av] Comm on [facility] bmi 2023-03-09 09:00:00 33.6 kg/m2 Commo n [facility] height 2022-11-21 09:20:00 68 [in_i] Commo n [facility] weight 2022-11-21 09:20:00 221.0 [lb_av] Co mmon [facility] temperature 2022-11-21 09:20:00 97.4 [degF] Com [facility] bmi 2022-11-21 09:20:00 33.6 kg/m2 Commo n [facility] oximetry 2022-11-21 09:20:00 99 % Commo n [facility] respiratory rate 2022-11-21 09:20:00 18 /min Common [facility] blood pressure systolic 2022-11-21 09:20:00 130 mm[Hg] Common [facility] blood pressure diastolic 2022-11-21 09:20:00 72 mm[Hg] Common [facility] height 2022-11-09 09:00:00 68 [in_i] Commo n [facility] weight 2022-11-09 09:00:00 221 [lb_av] Comm on [facility] temperature 2022-11-09 09:00:00 98.4 [degF] Com [facility] bmi 2022-11-09 09:00:00 33.6 kg/m2 Commo n [facility] blood pressure systolic 2022-11-09 09:00:00 130 mm[Hg] [facility] blood pressure diastolic 2022-11-09 09:00:00 74 mm[Hg] Common [facility] height 2022-11-07 13:20:00 68 [in_i] Commo n [facility] weight 2022-11-07 13:20:00 220 [lb_av] Comm on [facility] temperature 2022-11-07 13:20:00 98.3 [degF] Com [facility] bmi 2022-11-07 13:20:00 33.45 kg/m2 Comm on [facility] oximetry 2022-11-07 13:20:00 99 % Commo n [facility] respiratory rate 2022-11-07 13:20:00 16 /min Common [facility] blood pressure systolic 2022-11-07 13:20:00 126 mm[Hg] [facility] blood pressure diastolic 2022-11-07 13:20:00 78 mm[Hg] [facility] height 2022-10-09 09:20:00 68 [in_i] Commo n [facility] weight 2022-10-09 09:20:00 220 [lb_av] Comm on [facility] temperature 2022-10-09 09:20:00 97.0 [degF] Com [facility] bmi 2022-10-09 09:20:00 33.45 kg/m2 Comm on [facility] oximetry 2022-10-09 09:20:00 97 % Commo n [facility] respiratory rate 2022-10-09 09:20:00 17 /min Common [facility] blood pressure systolic 2022-10-09 09:20:00 117 mm[Hg] [facility] blood pressure diastolic 2022-10-09 09:20:00 72 mm[Hg] [facility] height 2022-08-21 13:30:00 68 [in_i] Commo n [facility] weight 2022-08-21 13:30:00 220 [lb_av] Comm on [facility] temperature 2022-08-21 13:30:00 97.3 [degF] Com [facility] bmi 2022-08-21 13:30:00 33.45 kg/m2 Comm on [facility] oximetry 2022-08-21 13:30:00 99 % Commo n [facility] respiratory rate 2022-08-21 13:30:00 17 /min Common [facility] blood pressure systolic 2022-08-21 13:30:00 137 mm[Hg] [facility] blood pressure diastolic 2022-08-21 13:30:00 73 mm[Hg] Common [facility] height 2022-08-21 13:00:00 68 [in_i] Commo n [facility] weight 2022-08-21 13:00:00 220 [lb_av] Comm on [facility] temperature 2022-08-21 13:00:00 97.3 [degF] Com mon [facility] bmi 2022-08-21 13:00:00 33.45 kg/m2 Comm on [facility] oximetry 2022-08-21 13:00:00 99 % Commo n [facility] respiratory rate 2022-08-21 13:00:00 17 /min [facility] blood pressure systolic 2022-08-21 13:00:00 137 mm[Hg] Common [facility] blood pressure diastolic 2022-08-21 13:00:00 73 mm[Hg] Common [facility] height 2021-12-12 08:20:00 68 [in_i] Commo n [facility] weight 2021-12-12 08:20:00 220 [lb_av] Comm on [facility] bmi 2021-12-12 08:20:00 33.45 kg/m2 Comm on [facility] Height 2021-12-12 00:00:00 68 [in_i] [facility] BMI (Body Mass Index) 2021-12-12 00:00:00 33.5 kg/m2 [facility] Body Weight 2021-12-12 00:00:00 220 [lb_av] [facility] height 2021-09-28 08:00:00 68 [in_i] Commo n [facility] weight 2021-09-28 08:00:00 220 [lb_av] Comm on [facility] temperature 2021-09-28 08:00:00 99.1 [degF] Com mon [facility] bmi 2021-09-28 08:00:00 33.45 kg/m2 Comm on [facility] blood pressure systolic 2021-09-28 08:00:00 125 mm[Hg] [facility] blood pressure diastolic 2021-09-28 08:00:00 70 mm[Hg] [facility] height 2021-08-15 09:30:00 68 [in_i] Commo n [facility] weight 2021-08-15 09:30:00 195 [lb_av] Comm on [facility] bmi 2021-08-15 09:30:00 29.65 kg/m2 Comm on [facility] blood pressure systolic 2021-08-15 09:30:00 112 mm[Hg] [facility] blood pressure diastolic 2021-08-15 09:30:00 79 mm[Hg] [facility] height 2021-07-18 08:30:00 68 [in_i] Commo n [facility] weight 2021-07-18 08:30:00 195 [lb_av] Comm on [facility] temperature 2021-07-18 08:30:00 97.7 [degF] Com mon [facility] bmi 2021-07-18 08:30:00 29.65 kg/m2 Comm on [facility] blood pressure systolic 2021-07-18 08:30:00 130 mm[Hg] [facility] blood pressure diastolic 2021-07-18 08:30:00 72 mm[Hg] [facility] height 2021-06-30 10:15:00 68 [in_i] Commo n [facility] weight 2021-06-30 10:15:00 195 [lb_av] Comm on [facility] bmi 2021-06-30 10:15:00 29.65 kg/m2 Comm on [facility] blood pressure systolic 2021-06-30 10:15:00 130 mm[Hg] [facility] blood pressure diastolic 2021-06-30 10:15:00 72 mm[Hg] Common [facility] height 2021-03-11 08:00:00 68 [in_i] Commo n [facility] weight 2021-03-11 08:00:00 200 [lb_av] Comm on [facility] temperature 2021-03-11 08:00:00 97.8 [degF] Com mon [facility] bmi 2021-03-11 08:00:00 30.41 kg/m2 Comm on [facility] Procedures Procedure Date / Time Performed Performing Clinician Source XR, knee, 1 or 2 view 2023-03-20 00:00:00 [facility] [id number] 2022-12-20 00:00:00 [facility] [id number] 2022-12-20 00:00:00 [facility] [id number] 2022-12-20 00:00:00 [facility] [id number] 2022-12-18 00:00:00 [facility] [id number] 2022-12-18 00:00:00 [facility] [id number] 2022-12-18 00:00:00 [facility] XR, knee, 4 or more view 2021-12-12 00:00:00 [facility] Encounters Start Date/Time End Date/Time Encounter Type Admission Type Attending Clinicians Care Facility Care Department Encounter ID Source 2024-03-19 16:19:00 Outpatient Sonal Washington [facility] [id number] [facility] 2023-12-06 11:33:00 Outpatient Sonal [place] [facility] [id number] [facility] 2023-12-04 10:10:00 Outpatient Sonal [place]ington [facility] STL[facility] [id number] [facility] 2023-11-16 12:10:00 Outpatient Sonal Washington [facility] ST[facility] [id number] [facility] 2023-09-17 15:14:00 Outpatient Sonal Washington [facility] [id number] [facility] 2023-08-28 10:08:00 Outpatient Sonal Washington [facility] ST[facility] [id number] [facility] 2023-08-03 09:26:00 Outpatient Sonal Washington [facility] ST[facility] [id number] [facility] 2023-08-01 09:06:00 Outpatient Sonal Washington [facility] ST[facility] [id number] [facility] 2023-07-05 15:33:00 Outpatient Sonal Washington [facility] ST[facility] [id number] [facility] 2023-06-07 14:25:00 Outpatient Bhakta, Nikolay STLMLC STLMLC [id number] [facility] 2023-05-16 08:42:00 Outpatient Bhakta, Nikolay STLMLC STL[facility]C [id number] [facility] 2023-05-15 08:08:00 Outpatient Bhakta, Nikolay STLMLC STLMLC [id number] [facility] 2023-03-07 08:28:00 Outpatient Bhakta, Nikolay STLMLC STLMLC [id number] [facility] 2023-03-05 11:04:00 Outpatient Bhakta, Nikolay STLMLC ST[facility]C [id number] [facility] 2022-12-19 10:04:00 Outpatient Bhakta, Nikolay STANIKALC STLMLC [id number] [facility] 2022-11-09 11:20:00 Outpatient Bhakta, Nikolay STLMLC STLMLC [id number] [facility] 2022-11-07 14:39:00 Outpatient Bhakta, Nikolay STLC STLMLC [id number] [facility] 2022-11-02 10:30:00 Outpatient Bhakta, Nikolay STLMLC STLMLC [id number] [facility] 2022-09-06 09:05:00 Outpatient Bhakta, Nikolay STLC STLMLC [id number] [facility] 2022-08-14 09:39:00 Outpatient Bhakta, Nikolay STLC STLMLC [id number] [facility] 2022-08-02 13:42:00 Outpatient Ofelia KHALIL STLC STLMLC [id number] [facility] 2022-06-26 09:37:01 Outpatient Ofelia Khalil STLMLC STLMLC [id number] [facility] 2022-02-22 12:30:00 Inpatient RadhikaDavidyomi HCATO HCATO [id number] 42 [facility] 2022-01-27 09:45:01 Outpatient Latisha Na STLMLC STLMLC [id number] [facility] 2022-01-03 08:06:00 Outpatient Latisha Na STLMLC STLMLC [id number] [facility] 2021-12-08 08:08:00 Outpatient Latisha Na STLMLC STLMLC [id number] [facility] 2021-10-04 11:22:00 Outpatient Latisha Na STLMLC STLMLC [id number] [facility] 2021-09-26 09:17:00 Outpatient Good, Na STLMLC STLMLC [id number] [facility] 2021-08-23 09:54:00 Outpatient Good, Na STLMLC STLMLC [id number] [facility] 2021-06-27 08:14:00 Outpatient Good, Na STLMLC STLMLC [id number] [facility] 2021-06-24 11:35:01 Outpatient Good, Na STLMLC STLMLC [id number] [facility] 2021-06-07 10:43:00 Outpatient Good, Na STLMLC STLMLC [id number] [facility] 2021-05-18 16:35:00 Outpatient GoodJannette curry STLMLC STLMLC [id number] [facility] 2021-03-23 14:34:30 Outpatient Good, Na STLMLC STLMLC [id number] [facility] 2021-03-23 14:00:26 Outpatient Good, Na STLMLC STLMLC [id number] [facility] 2021-03-23 13:58:30 Outpatient Good, Na STLMLC STLMLC [id number] [facility] 2021-03-23 13:57:22 Outpatient Good, Na STLMLC STLMLC [id number] [facility] 2021-03-23 13:23:44 Outpatient Good, Na STLMLC STLMLC [id number] [facility] 2021-03-23 12:45:34 Outpatient Good, Na STLMLC STLMLC [id number] [facility] 2021-03-23 12:36:03 Outpatient Good, Na STLMLC STLMLC [id number] [facility] 2021-03-23 12:21:11 Outpatient Jannette Good STLMLC STLMLC [id number] [facility] 2021-03-23 12:09:34 Outpatient Jannette Good STLMLC STLMLC [id number] [facility] 2021-03-23 11:58:50 Outpatient Latisha, Jannette STLMLC STLMLC [id number] [facility] 2021-03-23 11:33:44 Outpatient Jannette Good STLMLC STLMLC [id number] [facility] 2021-03-23 11:31:40 Outpatient Jannette Good STLMLC STLMLC [id number] [facility] 2021-03-23 11:18:14 Outpatient Jannette Good STLMLC STLMLC [id number] [facility] 2021-03-23 11:16:56 Outpatient Jannette Good STLMLC STLMLC [id number] [facility] 2024-03-24 00:00:00 2024-03-24 00:00:00 (TEL) STLMLC STLMLC [id number] [facility] 2024-03-21 00:00:00 2024-03-21 00:00:00 OFFICE VISIT ESTAB PT LEVEL 4 STLMLC STLMLC [id number] [facility] 2024-03-21 00:00:00 2024-03-21 00:00:00 (TEL) STLMLC STLMLC [id number] [facility] 2024-03-21 00:00:00 2024-03-21 00:00:00 (TEL) STLMLC STLMLC [id number] [facility] 2024-03-17 00:00:00 2024-03-17 00:00:00 (TEL) STLMLC STLMLC [id number] [facility] 2024-03-10 00:00:00 2024-03-10 00:00:00 (TEL) STLMLC STLMLC [id number] [facility] 2024-03-06 00:00:00 2024-03-06 00:00:00 (TEL) STLMLC STLMLC [id number] [facility] 2024-02-28 00:00:00 2024-02-28 00:00:00 (TEL) STLMLC STLMLC [id number] [facility] 2024-02-18 00:00:00 2024-02-18 00:00:00 (TEL) STLMLC STLMLC [id number] [facility] 2024-02-08 00:00:00 2024-02-08 00:00:00 (TEL) STLMLC STLMLC [id number] [facility] 2024-02-07 00:00:00 2024-02-07 00:00:00 OFFICE VISIT ESTAB PT LEVEL 4 STLMLC STLMLC [id number] [facility] 2024-02-07 00:00:00 2024-02-07 00:00:00 (TEL) STLMLC STLMLC [id number] [facility] 2024-02-07 00:00:00 2024-02-07 00:00:00 (TEL) STLMLC STLMLC [id number] [facility] 2024-01-10 00:00:00 2024-01-10 00:00:00 OFFICE VISIT ESTAB PT LEVEL 4 STLMLC STLMLC [id number] [facility] 2024-01-10 00:00:00 2024-01-10 00:00:00 (TEL) STLMLC STLMLC [id number] [facility] 2024-01-10 00:00:00 2024-01-10 00:00:00 (TEL) STLMLC STLMLC [id number] [facility] 2024-01-03 00:00:00 2024-01-03 00:00:00 (TEL) STLMLC STLMLC [id number] [facility] 2023-12-27 00:00:00 2023-12-27 00:00:00 (TEL) STLMLC STLMLC [id number] [facility] 2023-12-10 00:00:00 2023-12-10 00:00:00 (TEL) STLMLC STLMLC [id number] [facility] 2023-12-06 00:00:00 2023-12-06 00:00:00 OFFICE VISIT ESTAB PT LEVEL 4 STLMLC STLMLC [id number] [facility] 2023-12-06 00:00:00 2023-12-06 00:00:00 (TEL) STLMLC STLMLC [id number] [facility] 2023-11-28 00:00:00 2023-11-28 00:00:00 (TEL) STLMLC STLMLC [id number] [facility] 2023-11-16 00:00:00 2023-11-16 00:00:00 (TEL) STLMLC STLMLC [id number] [facility] 2023-11-14 00:00:00 2023-11-14 00:00:00 (TEL) STLMLC STLMLC [id number] [facility] 2023-09-13 00:00:00 2023-09-13 00:00:00 (TEL) STLMLC STLMLC [id number] [facility] 2023-09-12 00:00:00 2023-09-12 00:00:00 (TEL) STLMLC STLMLC [id number] [facility] 2023-09-12 00:00:00 2023-09-12 00:00:00 (TEL) STLMLC STLMLC [id number] [facility] 2023-09-07 00:00:00 2023-09-07 00:00:00 (TEL) STLMLC STLMLC [id number] [facility] 2023-08-31 00:00:00 2023-08-31 00:00:00 OFFICE VISIT ESTAB PT LEVEL 4 STLMLC STLMLC [id number] [facility] 2023-08-31 00:00:00 2023-08-31 00:00:00 (TEL) STLMLC STLMLC [id number] [facility] 2023-08-10 00:00:00 2023-08-10 00:00:00 (TEL) STLMLC STLMLC [id number] [facility] 2023-08-07 00:00:00 2023-08-07 00:00:00 (TEL) STLMLC STLMLC [id number] [facility] 2023-08-03 00:00:00 2023-08-03 00:00:00 OFFICE VISIT ESTAB PT LEVEL 3 STLMLC STLMLC [id number] [facility] 2023-08-03 00:00:00 2023-08-03 00:00:00 (TEL) STLMLC STLMLC [id number] [facility] 2023-08-03 00:00:00 2023-08-03 00:00:00 (TEL) STLMLC STLMLC [id number] [facility] 2023-07-24 00:00:00 2023-07-24 00:00:00 (TEL) STLMLC STLMLC [id number] [facility] 2023-07-16 00:00:00 2023-07-16 00:00:00 (TEL) STLMLC STLMLC [id number] [facility] 2023-07-13 00:00:00 2023-07-13 00:00:00 (TEL) STLMLC STLMLC [id number] [facility] 2023-07-11 00:00:00 2023-07-11 00:00:00 (TEL) STLMLC STLMLC [id number] [facility] 2023-07-11 00:00:00 2023-07-11 00:00:00 (TEL) STLMLC STLMLC [id number] [facility] 2023-07-09 00:00:00 2023-07-09 00:00:00 (TEL) STLMLC STLMLC [id number] [facility] 2023-07-06 00:00:00 2023-07-06 00:00:00 (TEL) STLMLC STLMLC [id number] [facility] 2023-07-06 00:00:00 2023-07-06 00:00:00 OFFICE VISIT NEW PT LEVEL 4 STLMLC STLMLC [id number] [facility] 2023-07-06 00:00:00 2023-07-06 00:00:00 (TEL) STLMLC STLMLC [id number] [facility] 2023-07-05 00:00:00 2023-07-05 00:00:00 (TEL) STLMLC STLMLC [id number] [facility] 2023-06-28 00:00:00 2023-06-28 00:00:00 (TEL) STLMLC STLMLC [id number] [facility] 2023-06-25 00:00:00 2023-06-25 00:00:00 (TEL) STLMLC STLMLC [id number] [facility] 2023-06-25 00:00:00 2023-06-25 00:00:00 (TEL) STLMLC STLMLC [id number] [facility] 2023-06-20 00:00:00 2023-06-20 00:00:00 (TEL) STLMLC STLMLC [id number] [facility] 2023-06-14 00:00:00 2023-06-14 00:00:00 (TEL) STLMLC STLMLC [id number] [facility] 2023-06-11 00:00:00 2023-06-11 00:00:00 (EST. VIDEO) EST VIRTUAL VIDEO VISIT STLMLC STLMLC [id number] [facility] 2023-06-07 00:00:00 2023-06-07 00:00:00 (TEL) STLMLC STLMLC [id number] [facility] 2023-06-07 00:00:00 2023-06-07 00:00:00 (TEL) STLMLC STLMLC [id number] [facility] 2023-05-17 00:00:00 2023-05-17 00:00:00 OFFICE VISIT ESTAB PT LEVEL 4 STLMLC STLMLC [id number] [facility] 2023-05-17 00:00:00 2023-05-17 00:00:00 SUB ANNUAL [facility]LLNESS VISIT STLMLC STLMLC [id number] [facility] 2023-05-17 00:00:00 2023-05-17 00:00:00 (TEL) STLMLC STLMLC [id number] [facility] 2023-05-10 00:00:00 2023-05-10 00:00:00 (TEL) STLMLC STLMLC [id number] [facility] 2023-04-02 00:00:00 2023-04-02 00:00:00 OFFICE VISIT ESTAB PT LEVEL 3 STLMLC STLMLC [id number] [facility] 2023-03-30 00:00:00 2023-03-30 00:00:00 (TEL) STLMLC STLMLC [id number] [facility] 2023-03-29 00:00:00 2023-03-29 00:00:00 (TEL) STLMLC STLMLC [id number] [facility] 2023-03-20 00:00:00 2023-03-20 00:00:00 Ian Monzon MD: [address] [place] [phone] , Ph. [phone] [facility] [place] [facility] [place] [facility] [place] [id number] [facility] 2023-03-09 00:00:00 2023-03-09 00:00:00 (TEL) [facility] [id number] [facility] 2023-03-09 00:00:00 2023-03-09 00:00:00 (EST. VIDEO) EST VIRTUAL VIDEO VISIT [facility] [id number] [facility] 2023-03-07 00:00:00 2023-03-07 00:00:00 Outpatient FOG_Behrens _Jon_MD AOSM AOSM [id number] [facility] 2023-03-05 00:00:00 2023-03-05 00:00:00 (TEL) [facility] [id number] [facility] 2023-02-23 00:00:00 2023-02-23 00:00:00 Outpatient FOG_Behrens _Jon_MD AOSM AOSM [id number] [facility] 2023-02-20 00:00:00 2023-02-20 00:00:00 (TEL) [facility] [id number] [facility] 2023-01-01 00:00:00 2023-01-01 00:00:00 Outpatient FOG_Burke_R obert_MD AOSM AOSM [id number] [facility] 2023-01-01 00:00:00 2023-01-01 00:00:00 Outpatient FOG_Burke_R obert_MD AOSM AOSM [id number] [facility] 2023-01-01 00:00:00 2023-01-01 00:00:00 Outpatient FOG_Burke_R obert_MD AOSM AOSM [id number] [facility] 2022-12-25 00:00:00 2022-12-25 00:00:00 Outpatient GC_GCBZW_Ka diyala_S PRIV PRIV [id number] [facility] 2022-12-24 00:00:00 2022-12-24 00:00:00 Outpatient GC_GCBZW_Ka citlalli_S PRIV PRIV [id number] [facility] 2022-12-20 15:46:00 2022-12-21 16:12:00 Inpatient Ian Kerr [facility] SURG [id number] 57 [facility] 2022-12-08 16:36:00 2022-12-08 16:36:00 Outpatient Ian Monzon HCACL LABO [id number] [facility] 2022-10-10 08:00:00 2022-12-08 16:00:00 Outpatient Carlie Simmons HCAT[facility] LABO [id number] 25 [facility] 2022-12-08 10:50:00 2022-12-08 10:50:00 Outpatient Ian Kerr HCAT[facility] RADI [id number] 87 [facility] 2022-11-29 00:00:00 2022-11-29 00:00:00 Outpatient FOG_Burke_R ob[place] AOSM AOSM [id number] [facility] 2022-11-29 00:00:00 2022-11-29 00:00:00 Outpatient FOG_Burke_R obertHAVEN AOSM AOSM [id number] [facility] 2022-11-29 00:00:00 2022-11-29 00:00:00 Outpatient FOG_Burke_R obertHAVEN AOSM AOSM [id number] [facility] 2022-11-29 00:00:00 2022-11-29 00:00:00 Outpatient FOG_Burke_R obert_ AOSM AOSM [id number] [facility] 2022-11-29 00:00:00 2022-11-29 00:00:00 Outpatient FOG_Burke_R obert_MD AOSM AOSM [id number] [facility] 2022-11-29 00:00:00 2022-11-29 00:00:00 Outpatient FOG_Burke_R Redd AOSM AOSM [id number] [facility] 2022-11-29 00:00:00 2022-11-29 00:00:00 Outpatient FOG_Burke_R Redd AOSM AOSM [id number] [facility] 2022-11-23 00:00:00 2022-11-23 00:00:00 (TEL) [facility] [id number] [facility] 2022-11-21 00:00:00 2022-11-21 00:00:00 OFFICE VISIT ESTAB PT LEVEL 4 [facility] [id number] [facility] 2022-11-14 00:00:00 2022-11-14 00:00:00 (TEL) [facility] [id number] [facility] 2022-11-13 00:00:00 2022-11-13 00:00:00 Outpatient FOG_Burkmarlin_Ricardo Rainey AOSM AOSM [id number] [facility] 2022-11-13 00:00:00 2022-11-13 00:00:00 Outpatient FOG_Burke_R Redd AOSM AOSM [id number] [facility] 2022-11-13 00:00:00 2022-11-13 00:00:00 Outpatient FOG_Burke_R Redd AOSM AOSM [id number] [facility] 2022-11-13 00:00:00 2022-11-13 00:00:00 (TEL) [facility] [id number] [facility] 2022-11-09 00:00:00 2022-11-09 00:00:00 OFFICE VISIT NEW PT LEVEL 3 STLMLC STLMLC [id number] [facility] 2022-11-07 00:00:00 2022-11-07 00:00:00 OFFICE VISIT ESTAB PT LEVEL 4 STLMLC STLMLC [id number] [facility] 2022-11-07 00:00:00 2022-11-07 00:00:00 (TEL) STLMLC STLMLC [id number] [facility] 2022-11-02 00:00:00 2022-11-02 00:00:00 (TEL) STLMLC STLC [id number] [facility] 2022-10-10 17:10:00 2022-10-10 17:10:00 Outpatient Carlie Garrido HCACL LABO [id number] [facility] 2022-10-10 08:00:00 2022-10-10 09:00:00 Outpatient Ian Kerr HCATO 3DAY [id number] 76 [facility] 2022-10-09 00:00:00 2022-10-09 00:00:00 Outpatient FOG_Mukul_R Redd AOSM AO [id number] [facility] 2022-10-09 00:00:00 2022-10-09 00:00:00 Outpatient FOG_Mukul_R Redd AOSM AO [id number] [facility] 2022-10-09 00:00:00 2022-10-09 00:00:00 OFFICE VISIT ESTAB PT LEVEL 4 STLMLC STLC [id number] [facility] 2022-10-06 00:00:00 2022-10-06 00:00:00 (TEL) STLMLC STLC [id number] [facility] 2022-09-06 00:00:00 2022-09-06 00:00:00 (TEL) STLC STLC [id number] [facility] 2022-09-05 00:00:00 2022-09-05 00:00:00 Outpatient FOG_Burke_Ricardo Rainey AOSM AOSM [id number] [facility] 2022-08-21 00:00:00 2022-08-21 00:00:00 OFFICE VISIT ESTAB PT LEVEL 4 [facility] [id number] [facility] 2022-08-21 00:00:00 2022-08-21 00:00:00 SUB ANNUAL MCR WELLNESS VISIT [facility] [id number] [facility] 2022-02-08 00:00:00 2022-02-08 00:00:00 (TEL) [facility] [id number] [facility] 2022-01-05 00:00:00 2022-01-05 00:00:00 Outpatient FOG_Burke_R Redd AOSM AOSM [id number] [facility] 2022-01-05 00:00:00 2022-01-05 00:00:00 Outpatient FOG_Burke_R Redd AOSM AOSM [id number] [facility] 2022-01-05 00:00:00 2022-01-05 00:00:00 Outpatient FOG_Burkmarlin_R Redd AOSM AOSM [id number] [facility] 2021-12-16 00:00:00 2021-12-16 00:00:00 Outpatient FOG_Burke_R Redd AOSM AOSM [id number] [facility] 2021-12-14 00:00:00 2021-12-14 00:00:00 (TEL) [facility] [id number] [facility] 2021-12-12 00:00:00 2021-12-12 00:00:00 Outpatient FOG_Burke_R Redd AOSM AOSM [id number] [facility] 2021-12-12 00:00:00 2021-12-12 00:00:00 OFFICE VISIT ESTAB PT LEVEL 4 [facility] [id number] [facility] 2021-12-12 00:00:00 2021-12-12 00:00:00 Carlie Garrido MD: [address] [place] [address] , Ph. [phone] [facility] [place] [facility] [place] [facility] [id number] [facility] 2021-12-11 00:00:00 2021-12-11 00:00:00 Outpatient FOG_Olinda Rainey AO AO [id number] [facility] 2021-12-09 00:00:00 2021-12-09 00:00:00 [facility] [id number] [facility] 2021-11-02 00:00:00 2021-11-02 00:00:00 Outpatient FOG_Burke_R Redd AOSM AO [id number] [facility] 2021-09-28 00:00:00 2021-09-28 00:00:00 OFFICE VISIT ESTAB PT LEVEL 4 [facility] [id number] [facility] 2021-09-12 12:59:00 2021-09-12 12:59:00 Outpatient FOG_Burke_R Redd AO AO [id number] [facility] 2021-08-24 00:00:00 2021-08-24 00:00:00 (TEL) [facility] [id number] [facility] 2021-08-15 00:00:00 2021-08-15 00:00:00 OFFICE VISIT EST PT LEVEL 3 [facility] [id number] [facility] 2021-07-18 00:00:00 2021-07-18 00:00:00 OFFICE VISIT EST PT LEVEL 3 STLMLC STLMLC [id number] [facility] 2021-07-06 00:00:00 2021-07-06 00:00:00 (TEL) STLMLC STLMLC [id number] [facility] 2021-06-30 00:00:00 2021-06-30 00:00:00 OFFICE VISIT NEW PT LEVEL 3 STLMLC STLMLC [id number] [facility] 2021-06-29 00:00:00 2021-06-29 00:00:00 OL DIG E/M SVC 21+ MIN STLMLC STLMLC [id number] [facility] 2021-06-24 00:00:00 2021-06-24 00:00:00 (TEL) STLMLC STLMLC [id number] [facility] 2021-03-11 00:00:00 2021-03-11 00:00:00 OFFICE VISIT ESTAB PT LEVEL 4 STLMLC STLMLC [id number] [facility] 2020-12-03 00:00:00 2020-12-03 00:00:00 OFFICE VISIT ESTAB PT LEVEL 4 STLMLC STLMLC [id number] [facility] 2020-10-06 00:00:00 2020-10-06 00:00:00 (TEL) STLMLC STLMLC [id number] [facility] 2020-09-03 00:00:00 2020-09-03 00:00:00 Outpatient STLMLC STLMLC [id number] [facility] 2020-09-03 00:00:00 2020-09-03 00:00:00 Outpatient STLMLC STLMLC [id number] [facility] 2020-08-23 00:00:00 2020-08-23 00:00:00 (TEL) STLMLC STLMLC [id number] [facility] 2020-06-28 00:00:00 2020-06-28 00:00:00 Outpatient STLMLC STLMLC [id number] [facility] 2020 00:00:00 2020 00:00:00 Outpatient STLMLC STLMLC [id number] [facility] 2020-01-29 00:00:00 2020-01-29 00:00:00 Outpatient STLMLC STLMLC [id number] [facility] 2020-01-29 00:00:00 2020-01-29 00:00:00 Outpatient STLMLC STLMLC [id number] [facility] 2019-09-15 00:00:00 2019-09-15 00:00:[address] [facility] [id number] [facility] 2019-06-16 08:40:00 2019-06-16 08:40:[address] [facility] [id number] [facility] 2019-05-30 15:47:00 2019-05-30 15:47:[address] [facility] [id number] [facility] 2019-02-07 08:40:00 2019-02-07 08:40:[address] [facility] [id number] [facility] 2019-01-30 16:14:00 2019-01-30 16:14:[address] [facility] [id number] [facility] 2018-11-08 08:40:00 2018-11-08 08:40:[address] [facility] [id number] [facility] 2018-10-22 08:20:00 2018-10-22 08:20:[address] [facility] [id number] [facility] 2018-05-06 08:30:00 2018-05-06 08:30:[address] [facility] [id number] [facility] Results Test Description Test Time Test Comments Results Result Co mments Source - XR KNEE 1 OR 2 V [id number] 10:07:00 [facility] 1960 Sex: F Patient Name: YOUNG FIGUEROA Unit No: [id number] EXAMS: CPT CODE: [id number] XR KNEE 1 OR 2 [place] [id number] IMAGES PROVIDED: 2 FINDINGS: Postoperative changes from right total knee arthoplasty demonstrated without evidence of immediate complication. No acute fracture is visualized. IMPRESSION: Postoperative exam as above. at 1007 R eported and signed by: Brendon Delgadillo M.D. CC: Ian Monzon MD Technologist: RAFFI PEREZ ARRT Transcribed D/ (1007) JanetteSLJ [facility] NAME: YOUNG FIGUEROA [address] PHYS: Ian Mix MD : 1960 AGE: 62 SEX: F [place], [place] [address] LOC: [id number] A PHONE #: [phone] EXAM DATE: 12/18/2022 STATUS: ADM IN FAX #: [phone] RAD #: D/C DT PAGE 1 Signed Report Patient Name: YOUNG FIGUEROA Unit No: [id number] EXAMS: CPT CODE: [id number] XR KNEE 1 OR 2 V RT [id number] (Continued) Orig Print D/T: S: 12/20/2022 (0735) [facility] [facility] NAME: YOUNG FIGUEROA [address] [facility] Main PHYS: Ian Mix MD : 1960 AGE: 62 SEX: F [place], [place] [address] LOC: YAndrew APHONE #: [phone] EXAM DATE: 12/18/2022 STATUS: ADM IN FAX #: [phone] RAD #: D/C DT PAGE 2Signed ReportHGB [id number] 06:02:00* Test Item Value Reference Range Interpretation Comme nts HEMOGLOBIN (test code = HGB) 9.2 g/dL 12-16 L HEMATOCRIT (test code = HCT) 27.5 % 37-47 L SPECIMEN COMMENT: POD #1- US EXTREM NON VASC [id number] 08:06:00 [facility] 1960 Sex: F Patient Name: YOUNG FIGUEROA Unit No: [id number] EXAMS: CPT CODE: [id number] US EXTREM NON VASC COMP 99235 TECHNIQUE: Callaway scale and Doppler sonographic evaluation of right knee was performed dedicated to the region of clinical concern. Longitudinal and transverse imaging was performed. COMPARISON: None available. FINDINGS: No right knee effusion is visualized. No evidence of significant solid or cystic mass. Visualized regional musculature demonstrates a normal sonographic appearance. IMPRESSION:No evidence of right knee joint effusion. Electronically Signed by Jose Delgadillo on12/11/2022 at 0806 Reported and signed by: Brendon Delgadillo M.D. CC: Carlie Garrido MD Techn ologist: MONICA EASLEY RDMS, RVT Transcribed D/ (805) [facility] NAME: YOUNG FIGUEROA [address] [facility] PHYS: UNDEFINED - Undefined Provider : 1960 AGE: 62 SEX: F [place] [address] LOC: Y.RAD PHONE #: [phone] EXAM DATE: 12/08/2022 STATUS: DEP CLI FAX #: [phone] RAD #: D/C DT PAGE 1 Signed Report Patient Name: YOUNG FIGUEROA Unit No: [id number] EXAMS: CPT CODE: [id number] US EXTREM NON VASC COMP 44204 (Continued) Orig Print D/T: S: 12/11/2022 (0809) [facility] NAME: YOUNG FIGUEROA [address] [facility] PHYS: UNDEFINED - Undefined Provider : 1960 AGE: 62 SEX: F [place] [address] LOC: Y.RAD PHONE #: [phone] EXAM DATE: 12/08/2022 STATUS: DEP CLI FAX #: [phone] RAD #: D/C DT PAGE 2 Signed [...] fructosamineshould be considered for these patients.DONE AT: [facility] [address] [place] [address] GLYCOSYLATED HEMOGLOBIN (HA1C)2022-12-08 21:01:00* Test Item Value [...] be considered for these patients. COMPREHENSIVE METABOLIC [id number] 14:03:00* Test Item Value Reference Range Interpretation [...] ALKP) 109 U/L 46-116 N C REACTIVE [id number] 14:02:00* Test Item Value Reference Range Interpretation Comme nts C REACTIVE PROTEIN (test code = CRP) 2.54 mg/dL < 0.3 H Please note ne w normal range. CBC W/AUTO [id number] 12:24:00* Test Item Value Reference Range Interpretation [...] = NRBC) 0 % 0-0 N PROTHROMBIN [id number] 12:24:00* Test Item Value Reference Range Interpretation [...] intravascular valves IS PATIENT ON ANTICOAGULANTS ? [facility] been notified if Patient is on Heparin Drip? NOTHROMBOPLASTIN TIME [id number] 12:24:00* Test Item Value Reference Range Interpretation Comme nts PTT ACTIVATED (test code = APTT) 33.5 secs 25.1-36.5 N IS PATIENT ON ANTICOAGULANTS ? [facility] been notified if Patient is on Heparin Drip? NOCBC W/AUTO [id number] 00:00:00* Test Item Value Reference Range Interpretation Comme nts NUCLEATED RBCS (test code = 11735-9) 0.0 /100 WBC'S See_Comment [Automated messa ge] The system which generated this result transmitted reference range: 0.0 /100 WBC'S. The reference range was not used to interpret this result as normal/abnormal. ABSOLUTE EOSINOPHILS (test code = 28753-2) 0.00 K/UL See_Comment [Automated messa ge] The system which generated this result transmitted reference range: 0.00-0.50 K/UL. The reference range was not used to interpret this result as normal/abnormal. ABSOLUTE LYMPHOCYTES (test code = 50378-4) 1.46 K/UL See_Comment [Automated messa ge] The system which generated this result transmitted reference range: 1.00-4.00 K/UL. The reference range was not used to interpret this result as normal/abnormal. ABSOLUTE MONOCYTES (test code = 27688-0) 0.71 K/UL See_Comment [Automated messa ge] The system which generated this result transmitted reference range: 0.20-1.00 K/UL. The reference range was not used to interpret this result as normal/abnormal. ABSOLUTE NEUTROPHILS (test code = 55777-5) 6.05 K/UL See_Comment [Automated messa ge] The system which generated this result transmitted reference range: 1.50-7.50 K/UL. The reference range was not used to interpret this result as normal/abnormal. BASOPHILS (test code = 05930-8) 0.6 % EOSINOPHILS (test code = 83451-8) 0.0 % HEMATOCRIT (test code = 44269-3) 37.6 % See_Comment [Automated messa ge] The [...] result as normal/abnormal. LYMPHOCYTES (test code = 43864-1) 17.6 % MCH (test code = 65281-6) 32.0 PG See_Comment [Automated messa ge] The system which generated this result transmitted reference range: 25.0-33.0 PG. The reference range was not used to interpret this result as normal/abnormal. MCHC (test code = 83204-1) 33.8 G/DL See_Comment [Automated messa ge] The system which generated this result transmitted reference range: 31.0-36.0 G/DL. The reference range was not used to interpret this result as normal/abnormal. MCV (test code = 05751-5) 94.7 fL See_Comment [Automated messa ge] The system which generated this result transmitted reference range: 80.0-99.0 fL. The reference range was not used to interpret this result as normal/abnormal. MONOCYTES (test code = 26592-4) 8.6 % NEUTROPHILS (test code = 65358-6) 72.8 % PLATELET COUNT (test code = 38921-8) 329 K/UL See_Comment [Automated messa ge] The system which generated this result transmitted reference range: 130-400 K/UL. The reference range was not used to interpret this result as normal/abnormal. RBC (test code = 60123-0) 3.97 M/UL See_Comment [Automated messa ge] The system which generated this result transmitted reference range: 3.80-5.40 M/UL. The reference range was not used to interpret this result as normal/abnormal. RDW (test code = 21119-1) 14.5 % See_Comment [Automated messa ge] The system which generated this result transmitted reference range: 11.5-15.0 %. The reference range was not used to interpret this result as normal/abnormal. WBC (test code = 03316-9) 8.3 K/UL See_Comment [Automated messa ge] The system which generated this result transmitted reference range: 3.5-11.0 K/UL. The reference range was not used to interpret this result as normal/abnormal. COMPREHENSIVE METABOLIC [id number] 14:27:00* Test Item Value Reference Range Interpretation [...] = ALKP) 81 U/L 46-116 N PROTHROMBIN [id number] 13:31:00* Test Item Value Reference Range Interpretation [...] intravascular valves IS PATIENT ON ANTICOAGULANTS ? [facility] been notified if Patient is on Heparin Drip? NOTHROMBOPLASTIN TIME [id number] 13:31:00* Test Item Value Reference Range Interpretation Comme nts PTT ACTIVATED (test code = APTT) 37.0 secs 25.1-36.5 H IS PATIENT ON ANTICOAGULANTS ? [facility] been notified if Patient is on Heparin Drip? NOCBC W/AUTO [id number] 13:05:00* Test Item Value Reference Range Interpretation [...]
[2024-04-02 13:14] LABS: PT Prothrombin Time 13.9 SECONDS (9.4-12.5); Protime INR 1.33
[2024-04-02] MEDS ORDERED: NA CHLORIDE 0.9% 0 ML ONE (13:16)
[2024-04-02 13:34] LABS: AST/SGOT 29 U/L (15-37); Albumin 1.6 g/dL (3.4-5.0); Albumin/Globulin Ratio 0.3 (1.1-1.8); Alkaline Phosphatase 119 U/L (45-117); Anion Gap 12.8 mEq/L (5.0-15.0); BUN Blood Urea Nitrogen 40 mg/dL (7-18); Bicarbonate 18 mEq/L (21-32); Bilirubin Direct 0.3 mg/dL (0-0.2); Bilirubin Indirect, Calculated 0.2 mg/dL (0.2-0.8); Bilirubin Total 0.5 mg/dL (0.2-1.0); Globulin 4.7 g/dL (2.3-3.5); Glomerular Filtration Rate 26 ml/min (=/>90); Glucose Level 95 mg/dL (74-106); Lipase 18 U/L (13-75); Magnesium 1.9 mg/dL (1.6-2.4); NT PRO-BNP 271 pg/mL (<125); Potassium 4.8 mEq/L (3.5-5.1); Protein, Total 6.3 g/dL (6.4-8.2); Sodium Level 132 mEq/L (136-145)
[2024-04-02 13:35] LABS: ALT/SGPT < 14 U/L (13-56)
[2024-04-02 13:36] LABS: Troponin High Sensitivity < 3.0 pg/mL (<58.9)
[2024-04-02 13:47] LABS: Absolute Lymphocytes (CBC) 1.2 K/uL (0.7-4.9); Absolute Monocytes 1.2 K/uL (0.1-1.3); Absolute Neutrophil 11.5 K/uL (1.8-8.0); Basophils % 0.3 % (0-1.3); Eosinophils % 0.3 % (0-4.4); Hematocrit 27.5 % (36.0-45.0); Hemoglobin 8.8 g/dL (12.0-15.0); Lymphocytes % 8.9 % (15.3-44.8); MCH 24.8 pg (27.0-35.0); MCHC 32.2 g/dL (32.0-36.0); MCV 77.1 fL (80-100); MPV 8.7 fL (7.6-11.3); Monocytes % 8.4 % (3.3-12.3); Neutrophils % 82.1 % (41.7-73.7); Nucleated Red Blood Cells % 0.1 % (0-0); Platelets 355 thou/uL (152-406); RBC Red Blood Cell Count 3.56 M/uL (3.86-4.86); Red Cell Distribution Width 17.2 % (12.1-15.2)
--- NOTE | 2024-04-02 13:49 | RAD REPORT ---
EXAMINATION: ONE VIEW CHEST XR CLINICAL INDICATION: Female, 63 years old.,COUGH TECHNIQUE: Frontal chest projection is submitted. Examination is limited by patient positioning and t echnique. COMPARISON: 07/16/2023 FINDINGS: The lungs are grossly clear although suboptimal inspiratory effort somewhat limits evaluation. No pn eumothorax or sizable effusion. The heart is normal in size. Mediastinal contours are unremarkable. IMPRESSION: No acute intrathoracic abnormalities.
[2024-04-02 14:09] LABS: Specific Gravity < 1.005 (1.005-1.030); Sqamous Epithelial <5 /HPF (None Seen); Urine Bacteria <20 /HPF (<20); Urine Bilirubin NEGATIVE (Negative); Urine Blood 2+ (Negative); Urine Clarity Extremely Turbid (Clear); Urine Color Light-Orange (Yellow); Urine Crystals Unidentified Few /HPF (None Seen); Urine Culture Reflex Order REFLEXED; Urine Glucose NEGATIVE (Negative); Urine Ketones NEGATIVE (Negative); Urine Microscopic Reflex YN ORDER UMIC; Urine Mucus Slight /HPF (None Seen); Urine Nitrite NEGATIVE (Negative); Urine Protein 1+ (Negative); Urine RBC 21-50 /HPF (None Seen); Urine Urobilinogen Normal (Normal); Urine WBC >50 /HPF (<5); Urine WBC Clump Many /HPF (None Seen); Urine Yeast (Budding) Many /HPF (None Seen)
[2024-04-02] MEDS ORDERED: VANCOMYCIN 1 GM/VIAL ONE (14:40)
[2024-04-02] MEDS ORDERED: NA CHLORIDE 0.9% 1,000 ML ONE ×2 (14:41→18:51)
[2024-04-02] MEDS ORDERED: NA CHLORIDE 0.9% 250 ML ONE (14:41)
[2024-04-02] MEDS ORDERED: FAMOTIDINE 20 MG/2 ML VIAL IV ONE (14:41)
[2024-04-02] MEDS ORDERED: Meropenem 1000 MG/VIAL IV ONE (14:41)
[2024-04-02] MEDS ORDERED: NA CHLORIDE 0.9% 100 ML ONE (14:41)
--- NOTE | 2024-04-02 14:52 | EDPHYS ---
Physician Documentation [facility] Name: Young Gates Age: 63 yrs Sex: Female : 1960 Arrival Date: 04/02/2024 Time: 12:35 Bed 18 Private MD: ED Physician Fam Hall HPI: 04/02 14:35 This 63 yrs old Female presents to ER via EMS with complaints of decreased cirilo urine output, left buttock and sacral wounds. 14:35 The patient presents with an abscess of the buttocks, The patient presents with cirilo cellulitis of the buttocks. Description: The affected area is moderate sized, erythematous, fluctuant. Onset: The symptoms/episode began/occurred 3 month(s) ago. Modifying factors: The symptoms are alleviated by nothing. the symptoms are aggravated by movement, palpation/percussion. bed ridden, pressure wounds, sacrum and left buttock. Modifying factors: the symptoms are alleviated by nothing, the symptoms are aggravated by nothing. Severity of symptoms: At their worst the symptoms were mild, moderate, in the emergency department the symptoms are unchanged. Historical: - Allergies: 12:42 Ampicillin; bm7 12:42 Azithromycin; bm7 12:42 Chocolate; bm7 12:42 Lisinopril; bm7 12:42 PENICILLINS; bm7 12:42 SHELLFISH; bm7 12:42 Iodine; bm7 - PMHx: 12:42 Arthritis; Cerebrovascular accident; chronic sacral pressure ulcer; bm7 Hypercholesterolemia; Hypertension; Hypothyroidism; Kidney stones; osteoarthritis; - PSHx: 12:42 Right knee replacement; bm7 - Immunization history:: Adult Immunizations up to date, Client reports receiving the 2nd dose of the Covid vaccine, Client reports receiving the 1st dose of the Covid vaccine, Flu vaccine is not up to date. It has been more than one year since last vaccine. - Infectious Disease History:: Denies. CDIFF, ESBL, . - Social history:: Smoking status: Patient denies any tobacco usage or history of. ROS: 14:38 Constitutional: Negative for fever, chills, and weight loss, Eyes: Negative for injury, cirilo pain, redness, and discharge, ENT: Negative for injury, pain, and discharge, Neck: Negative for injury, pain, and swelling, Cardiovascular: Negative for chest pain, palpitations, and edema, Respiratory: Negative for shortness of breath, cough, wheezing, and pleuritic chest pain, Abdomen/GI: Negative for abdominal pain, nausea, vomiting, diarrhea, and constipation, MS/Extremity: Negative for injury and deformity, Neuro: Negative for headache, weakness, numbness, tingling, and seizure, Psych: Negative for depression, anxiety, suicide ideation, homicidal ideation, and hallucinations, Allergy/Immunology: Negative for hives, rash, and allergies, Endocrine: Negative for neck swelling, polydipsia, polyuria, polyphagia, and marked weight changes, Hematologic/Lymphatic: Negative for swollen nodes, abnormal bleeding, and unusual bruising, 14:38 Back: Positive for decreased range of motion, pain at rest, pain with movement, of the lumbar area, left low back and right low back, 14:38 Skin: Positive for cellulitis, erythema, swelling, of the buttocks, infected deep sacral and left buttock pressure ulcers, Exam: 14:38 Constitutional: This is a well developed, well nourished patient who is awake, alert, cirilo and in no acute distress. Head/Face: Normocephalic, atraumatic. Eyes: Pupils equal round and reactive to light, extra-ocular motions intact. Lids and lashes normal. Conjunctiva and sclera are non-icteric and not injected. Cornea within normal limits. Periorbital areas with no swelling, redness, or edema. ENT: Nares patent. No nasal discharge, no septal abnormalities noted. Tympanic membranes are normal and external auditory canals are clear. Oropharynx with no redness, swelling, or masses, exudates, or evidence of obstruction, uvula midline. Mucous membranes moist. Neck: Trachea midline, no thyromegaly or masses palpated, and no cervical lymphadenopathy. Supple, full range of motion without nuchal rigidity, or vertebral point tenderness. No Meningismus. Chest/axilla: Normal chest wall appearance and motion. Nontender with no deformity. No lesions are appreciated. Cardiovascular: Regular rate and rhythm with a normal S1 and S2. No gallops, murmurs, or rubs. Normal PMI, no JVD. No pulse deficits. Respiratory: Lungs have equal breath sounds bilaterally, clear to auscultation and percussion. No rales, rhonchi or wheezes noted. No increased work of breathing, no retractions or nasal flaring. Abdomen/GI: Soft, non-tender, with normal bowel sounds. No distension or tympany. No guarding or rebound. No evidence of tenderness throughout. Female : Normal external genitalia. MS/ Extremity: Pulses equal, no cyanosis. Neurovascular intact. Full, normal range of motion., bilateral aka Neuro: Awake and alert, GCS 15, oriented to person, place, time, and situation. Cranial nerves II-XII grossly intact. Motor strength 5/5 in all extremities. Sensory grossly intact. Cerebellar exam normal. Normal gait. Psych: Awake, alert, with orientation to person, place and time. Behavior, mood, and affect are within normal limits. 14:38 Back: pain, that is moderate, ROM is painful, normal spinal alignment noted, CVA tenderness, is absent, 14:38 Skin: cellulitis, that is moderate, on the buttocks, sacral stage 4, left buttock stage 3, 14:46 ECG was reviewed by the Attending Physician. cirilo Vital Signs: 12:36 BP 106 / 72 LA Supine; Pulse 22; Resp 22; Temp 98.3(O); Pulse Ox 100% on R/A; Weight bm7 75.75 kg (R); Height 5 ft. 8 in. ; Pain 9/10; 12:49 BP 106 / 72; Pulse 90; Resp 22; Temp 98.3(O); Pulse Ox 100% on R/A; Weight 75.75 kg; bm7 Height 5 ft. 8 in. ; Pain 9/10; 14:00 BP 102 / 64; Pulse 81; Resp 16; Pulse Ox 98% on R/A; jb4 15:15 BP 104 / 57; Pulse 82; Resp 16; Pulse Ox 100% on R/A; jb4 16:00 BP 107 / 62; Pulse 85; Resp 16; jb4 17:00 BP 98 / 64; Pulse 83; Resp 16 S; jb4 18:15 BP 95 / 62; Pulse 86; Resp 16; Pulse Ox 100% on R/A; jb4 12:49 Body Mass Index 25.39 (75.75 kg, 172.72 cm) bm7 12:36 Pain Scale: Adult bm7 12:49 Pain Scale: Adult bm7 Gem Coma Score: 14:38 Eye Response: spontaneous(4). Motor Response: obeys commands(6). Verbal Response: cirilo oriented(5). Total: 15. MDM: 12:40 Medical Screening Exam initiated cirilo 14:44 Differential diagnosis: abscess, cellulitis, nephrolithiasis, pyelonephritis, UTI, cirilo diverticulitis. Differential Diagnosis altered mental status, sepsis, flu. Data reviewed: vital signs, nurses notes, EMS record, lab test result(s), EKG, radiologic studies, CT scan, plain films. Consideration of Admission/Observation Patient was admitted/placed on observation. Escalation of care including admission/observation considered. I considered the following discharge prescriptions or medication management in the emergency department Medications were administered in the Emergency Department. See MAR. Independent interpretation of the following test(s) in the Emergency Department EKG: See my EKG interpretation above. Test considered but Not performed: MRI: no mri. Care significantly affected by the following chronic conditions: Hypertension, sacral ulcers, cva, ra, high chlesterol. Counseling: I had a detailed discussion with the patient and/or guardian regarding the historical points, exam findings, and any diagnostic results supporting the discharge/admit diagnosis, lab results, radiology results. 04/02 12:41 Order name: Basic Metabolic Panel; Complete Time: 14:23 [facility] 04/02 12:41 Order name: CBC with Diff; Complete Time: 14:23 [facility] 04/02 12:41 Order name: LFT's; Complete Time: 14:23 [facility] 04/02 12:41 Order name: Magnesium; Complete Time: 14:23 [facility] 04/02 12:41 Order name: NT PRO-BNP; Complete Time: 14:23 [facility] 04/02 12:41 Order name: PT-INR; Complete Time: 14:23 [facility] 04/02 12:41 Order name: Troponin HS; Complete Time: 14:23 [facility] 04/02 12:41 Order name: Lipase; Complete Time: 14:23 [facility] 04/02 12:41 Order name: Urinalysis w/ reflexes; Complete Time: 14:23 [facility] 04/02 14:12 Order name: Urine Culture EDLA 04/02 14:34 Order name: Lactate w/ 2H reflex if indic.; Complete Time: 16:23 [facility] 04/02 14:34 Order name: Blood Culture Adult (2) [facility] 04/02 14:38 Order name: Type And Screen bd 04/02 16:41 Order name: Basic Metabolic Panel EDLA 04/02 16:41 Order name: Basic Metabolic Panel EDMS 04/02 16:41 Order name: CBC with Automated Diff EDMS 04/02 16:41 Order name: CBC with Automated Diff EDMS 04/02 16:41 Order name: Magnesium EDMS 04/02 16:41 Order name: Magnesium EDMS 04/02 16:41 Order name: Phosphorus EDMS 04/02 16:41 Order name: Phosphorus EDMS 04/02 23:10 Order name: CDIFF jb4 04/02 12:41 Order name: XRAY Chest (1 view); Complete Time: 14:23 cirilo 04/02 14:33 Order name: CT Chest Abdomen Pelvis W/O Contrast [facility] 04/02 16:24 Order name: US Abdomen Limited [facility] 04/02 16:41 Order name: CONS Physician Consult [facility] 04/02 12:41 Order name: Cardiac monitoring; Complete Time: 13:22 cirilo 04/02 12:41 Order name: EKG - Nurse/Tech; Complete Time: 13:29 cirilo 04/02 12:41 Order name: IV Saline Lock; Complete Time: 13:22 cirilo 04/02 12:41 Order name: Labs collected and sent; Complete Time: 13:22 cirilo 04/02 12:41 Order name: O2 Per Protocol; Complete Time: 13:22 cirilo 04/02 12:41 Order name: O2 Sat Monitoring; Complete Time: 13:22 cirilo 04/02 14:33 Order name: IV Saline Lock - Large Bore; Complete Time: 14:34 cirilo 04/02 14:44 Order name: IV Saline Lock - Large Bore; Complete Time: 15:16 cirilo EC:46 Rate is 84 beats/min. Rhythm is regular. QRS [place] is Normal. VT interval is normal. QRS cirilo interval is normal. QT interval is normal. No Q waves. T waves are Normal. ST Segment is depressed in leads V2, V3, V4, V5, V6. Clinical impression: NSR w/ Non-specific ST/T Changes. Interpreted by me. Reviewed by me. Administered Medications: 13:22 Drug: NS 0.9% IV 1000 ml IV at 1000 ml once; to be given as a bolus over 60 minutes jb4 Route: IV; Rate: 1000 ml; Site: right antecubital; 14:22 Follow up: Response: No adverse reaction; IV Status: Completed infusion; IV Intake: jb4 1000ml 15:15 Drug: Famotidine IVP 20 mg IVP once; dilute with 10 mL 0.9% NaCl; give over 2 minutes jb4 Route: IVP; Site: right antecubital; 16:00 Follow up: Response: No adverse reaction jb4 15:16 Drug: NS 0.9% IV 1000 ml IV at 1000 ml once; to be given as a bolus over 60 minutes jb4 Route: IV; Rate: 1000 ml; Site: right antecubital; 16:15 Follow up: Response: No adverse reaction; IV Status: Completed infusion; IV Intake: jb4 1000ml 16:19 Drug: vancoMYCIN IVPB 1 grams IVPB once over 2 hrs Route: IVPB; Infused Over: 2 hrs; jb4 Site: right hand; 18:19 Follow up: Response: No adverse reaction; IV Status: Completed infusion; IV Intake: jb4 250ml 16:20 Drug: Meropenem IV 1 grams IV at per protocol once; (mix in NS 100 mL) Route: IV; Rate: jb4 per protocol; Site: right antecubital; 16:50 Follow up: Response: No adverse reaction; IV Status: Completed infusion; IV Intake: jb4 100ml Disposition Summary: 04/02/24 14:51 Hospitalization Ordered Notes: Hospitalization Status: Inpatient Admission cirilo Provider: Miguel Angel Noland cha Condition: Fair cirilo Problem: new cirilo Symptoms: have improved cirilo Bed/Room Type: Standard cirilo Location: Telemetry/MedSurg (Inpatient)(04/03/24 13:24) bc6 Room Assignment: [facility](04/03/24 13:24) [facility] Diagnosis - Other acute kidney failure cirlio - Pressure ulcer of sacral region, stage 4 cirilo - Pressure ulcer of buttock cirilo - Elevated white blood cell count cirilo - Anemia, unspecified cirilo - Acute cystitis cirilo - Dehydration cirilo - Acute cholecystitis cirilo - Osteomyelitis, unspecified - SACRUM cirilo Forms: - Medication Reconciliation Form cirilo - SBAR form cirilo - Leadership Thank You Letter cirilo Signatures: Dispatcher [employer] Fam Joyce MD MD cha Bryson, James, RN RN jb4 Sue Bello RN RN bm7 Renu Villanueva RN RN kb3 Isabella Alonzo 6 Corrections: (The following items were deleted from the chart) 12:41 12:41 BASIC METABOLIC PANEL+C.LAB.BRZ ordered. EDMS EDMS 12:41 12:41 CBC+H.LAB.BRZ ordered. EDMS EDMS 12:41 12:41 HEPATIC FUNCTION+C.LAB.BRZ ordered. EDMS EDMS 12:41 12:41 MAGNESIUM+C.LAB.BRZ ordered. EDMS EDMS 12:41 12:41 PROBNP+C.LAB.BRZ ordered. EDMS EDMS 12:41 12:41 PROTIME (+INR)+COAG.LAB.BRZ ordered. EDMS EDMS 12:41 12:41 Troponin High Sensitivity+C.LAB.BRZ ordered. EDMS EDMS 12:41 12:41 LIPASE+C.LAB.BRZ ordered. EDMS EDMS 12:41 12:41 Urinalysis+U.LAB.BRZ ordered. EDMS EDMS 12:41 12:41 Chest Single View+RAD.RAD.BRZ ordered. EDMS EDMS 14:35 14:35 LACTATE+C.LAB.BRZ ordered. EDMS EDMS 14:35 14:35 BLOOD CULTURE*+BA.LAB.BRZ ordered. EDMS EDMS 17:05 14:51 Telemetry/MedSurg (Inpatient) cirilo kb3 17:05 14:51 cirilo kb3 22:57 22:57 Stool Culture+BA.LAB.BRZ ordered. EDMS EDMS 04/03 13:24 02 17:05 [facility] ER HOLD kb3 bc6 04/03 13:24 02 17:05 ERHOLD- kb3 bc6
--- NOTE | 2024-04-02 14:52 | ER ---
Nurse's Notes [facility] Name: Young Gates Age: 63 yrs Sex: Female : 1960 Arrival Date: 04/02/2024 Time: 12:35 Bed 18 Private MD: Diagnosis: Other acute kidney failure;Pressure ulcer of sacral region, stage 4;Pressure ulcer of buttock;Elevated white blood cell count;Anemia, unspecified;Acute cystitis;Dehydration;Acute cholecystitis;Osteomyelitis, unspecified-SACRUM Presentation: 04/02 12:36 Chief complaint: EMS states: patients home health nurse came to irrigate the patient's bm7 bang and the home health nurse was not able to. The home health nurse changed the bang catheter to a 22 mauritian and there was hardly any output. Coronavirus screen: Vaccine status: Patient reports receiving the 2nd dose of the covid vaccine. Patient reports receiving the 1st dose of the Covid vaccine. Ebola Screen: No symptoms or risks identified at this time. Initial Sepsis Screen: Does the patient meet any 2 criteria? RR > 20 per min. Does the patient have a suspected source of infection? No. Patient's initial sepsis screen is negative. Risk Assessment: Do you want to hurt yourself or someone else? Patient reports no desire to harm self or others. Onset of symptoms was April 02, 2024. Care prior to arrival: Medication(s) given: IV initiated. 18 GA, in the right antecubital area. Activity prior to arrival: None. 12:36 Method Of Arrival: EMS: [place] [id number] 12:36 Acuity: KJ 3 bm7 Triage Assessment: 12:42 General: Appears in no apparent distress. uncomfortable, unkempt, Behavior is calm, bm7 cooperative, appropriate for age, Smells of urine. Pain: Complains of pain in buttocks Pain does not radiate. Pain currently is 9 out of 10 on a pain scale. EENT: No deficits noted. No signs and/or symptoms were reported regarding the EENT system. Neuro: No deficits noted. Level of Consciousness is awake, alert, obeys commands, Oriented to person, place, time, situation. Cardiovascular: No deficits noted. Respiratory: No deficits noted. GI: No deficits noted. No signs and/or symptoms were reported involving the gastrointestinal system. : Bang in place to gravity drainage Urine is cloudy, Reports cramping. Derm: Decubitus located on sacrum is unstageable. covered with a dressing from . Derm: Decubitus located on left buttock is unstageable. covered with dressing. Historical: - Allergies: 12:42 Ampicillin; bm7 12:42 Azithromycin; bm7 12:42 Chocolate; bm7 12:42 Lisinopril; bm7 12:42 PENICILLINS; bm7 12:42 SHELLFISH; bm7 12:42 Iodine; bm7 - PMHx: 12:42 Arthritis; Cerebrovascular accident; chronic sacral pressure ulcer; bm7 Hypercholesterolemia; Hypertension; Hypothyroidism; Kidney stones; osteoarthritis; - PSHx: 12:42 Right knee replacement; bm7 - Immunization history:: Adult Immunizations up to date, Client reports receiving the 2nd dose of the Covid vaccine, Client reports receiving the 1st dose of the Covid vaccine, Flu vaccine is not up to date. It has been more than one year since last vaccine. - Infectious Disease History:: Denies. CDIFF, ESBL, . - Social history:: Smoking status: Patient denies any tobacco usage or history of. Screenin:15 [facility] ED Fall Risk Assessment (Adult) History of falling in the last 3 months, jb4 including since admission No falls in past 3 months (0 pts) Confusion or Disorientation No (0 pts) Intoxicated or Sedated No (0 pts) Impaired Gait No (0 pts) Mobility Assist Device Used No (0 pt) Altered Elimination No (0 pt) Score/Fall Risk Level 0 - 2 = Low Risk Oriented to surroundings, Maintained a safe environment. Abuse screen: Denies threats or abuse. Nutritional screening: No deficits noted. Tuberculosis screening: No symptoms or risk factors identified. Assessment: 14:15 Reassessment: Patient appears in no apparent distress at this time. Patient and/or jb4 family updated on plan of care and expected duration. Pain level reassessed. Patient is alert, oriented x 3, equal unlabored respirations, skin warm/dry/pink. 15:00 Reassessment: Patient appears in no apparent distress at this time. Patient and/or jb4 family updated on plan of care and expected duration. Pain level reassessed. Patient is alert, oriented x 3, equal unlabored respirations, skin warm/dry/pink. 16:00 Reassessment: Patient appears in no apparent distress at this time. Patient and/or jb4 family updated on plan of care and expected duration. Pain level reassessed. Patient is alert, oriented x 3, equal unlabored respirations, skin warm/dry/pink. 17:00 Reassessment: Patient appears in no apparent distress at this time. Patient and/or jb4 family updated on plan of care and expected duration. Pain level reassessed. Patient is alert, oriented x 3, equal unlabored respirations, skin warm/dry/pink. Vital Signs: 12:36 BP 106 / 72 LA Supine; Pulse 22; Resp 22; Temp 98.3(O); Pulse Ox 100% on R/A; Weight bm7 75.75 kg (R); Height 5 ft. 8 in. ; Pain 9/10; 12:49 BP 106 / 72; Pulse 90; Resp 22; Temp 98.3(O); Pulse Ox 100% on R/A; Weight 75.75 kg; bm7 Height 5 ft. 8 in. ; Pain 9/10; 14:00 BP 102 / 64; Pulse 81; Resp 16; Pulse Ox 98% on R/A; jb4 15:15 BP 104 / 57; Pulse 82; Resp 16; Pulse Ox 100% on R/A; jb4 16:00 BP 107 / 62; Pulse 85; Resp 16; jb4 17:00 BP 98 / 64; Pulse 83; Resp 16 S; jb4 18:15 BP 95 / 62; Pulse 86; Resp 16; Pulse Ox 100% on R/A; jb4 12:49 Body Mass Index 25.39 (75.75 kg, 172.72 cm) bm7 12:36 Pain Scale: Adult bm7 12:49 Pain Scale: Adult bm7 Sav Coma Score: 14:38 Eye Response: spontaneous(4). Motor Response: obeys commands(6). Verbal Response: cirilo oriented(5). Total: 15. ED Course: 12:35 Patient arrived in ED. bm7 12:40 Fam Hall MD is Attending Physician. cirilo 12:42 Triage completed. bm7 12:42 Arm band placed on left wrist. bm7 13:04 XRAY Chest (1 view) In Process Unspecified. EDMS 13:22 Basic Metabolic Panel Sent. jb4 13:22 Troponin HS Sent. jb4 13:22 CBC with Diff Sent. jb4 13:22 LFT's Sent. jb4 13:22 Magnesium Sent. jb4 13:22 NT PRO-BNP Sent. jb4 13:29 EKG done, by ED staff, reviewed by Fam Hall MD. 6 14:15 Joseph Carbajal, RN is Primary Nurse. jb4 14:47 CT Chest Abdomen Pelvis W/O Contrast In Process Unspecified. EDMS 14:49 Miguel Angel Noland is Hospitalizing Provider. cirilo 16:58 US Abdomen Limited In Process Unspecified. EDMS 18:15 Patient has correct armband on for positive identification. Bed in low position. Call jb4 light in reach. Side rails up X 1. Provided Education on: need for admit. 18:15 No provider procedures requiring assistance completed. Patient admitted, IV remains in jb4 place. Administered Medications: 13:22 Drug: NS 0.9% IV 1000 ml IV at 1000 ml once; to be given as a bolus over 60 minutes jb4 Route: IV; Rate: 1000 ml; Site: right antecubital; 14:22 Follow up: Response: No adverse reaction; IV Status: Completed infusion; IV Intake: jb4 1000ml 15:15 Drug: Famotidine IVP 20 mg IVP once; dilute with 10 mL 0.9% NaCl; give over 2 minutes jb4 Route: IVP; Site: right antecubital; 16:00 Follow up: Response: No adverse reaction jb4 15:16 Drug: NS 0.9% IV 1000 ml IV at 1000 ml once; to be given as a bolus over 60 minutes jb4 Route: IV; Rate: 1000 ml; Site: right antecubital; 16:15 Follow up: Response: No adverse reaction; IV Status: Completed infusion; IV Intake: jb4 1000ml 16:19 Drug: vancoMYCIN IVPB 1 grams IVPB once over 2 hrs Route: IVPB; Infused Over: 2 hrs; jb4 Site: right hand; 18:19 Follow up: Response: No adverse reaction; IV Status: Completed infusion; IV Intake: jb4 250ml 16:20 Drug: Meropenem IV 1 grams IV at per protocol once; (mix in NS 100 mL) Route: IV; Rate: jb4 per protocol; Site: right antecubital; 16:50 Follow up: Response: No adverse reaction; IV Status: Completed infusion; IV Intake: jb4 100ml Medication: 18:15 VIS not applicable for this client. jb4 Intake: 14:22 IV: 1000ml; Total: 1000ml. jb4 16:15 IV: 1000ml; Total: 2000ml. jb4 16:50 IV: 100ml; Total: 2100ml. jb4 18:19 IV: 250ml; Total: 2350ml. jb4 Outcome: 14:51 Decision to Hospitalize by Provider. cirilo 18:15 Admitted to ER Hold. Please see [facility] for further documentation. jb4 18:15 Condition: stable 18:15 Discharge instructions given to patient, Instructed on the need for admit, Demonstrated understanding of instructions, 04/03 15:16 Patient left the ED. aa5 Signatures: Dispatcher [employer] EDFam Hammond MD MD cha Calderon, Audri, RN RN aa5 Joseph Carbajal RN RN jb4 Sue Bello, RN RN bm7 Isabella Alonzo 6
--- NOTE | 2024-04-02 16:07 | P.HP ---
Patient History Date of Service: 04/02/24 Reason for admission: Urinary tract infection History of Present Illness: Young Gates is a 63 year old female with Pmhx arthritis, chronic sacral pressure ulcer, hypercholesterolemia, hypertension, hypothyroidism, kidney stones, osteoarthritis who presented to the ED with complaint of decreased urine output. She reports 600 mL urine output from Sunday through Sunday. Home health nurse irrigated the Patton catheter with no return. She came to the ED for further evaluation. She was found to have a urinary tract infection and on the CT abdomen pelvis showing suspected osteomyelitis to chronic sacral wound. Laboratory evaluation WBC 14, H&H 8/27, sodium 132, bicarb 18, BUN/creatinine 40/2.12, GFR 26, UA suggestive of infectious process. CT Chest, abdomen, pelvis reports "Pronounced inflammatory changes centered around the gallbladder, with numerous gallstones present, concerning for acute cholecystitis. Adjacent inflammatory changes extend towards the alfaro of the ascending colon and second part of duodenum. Progressive decubitus ulcers with underlying osseous changes involving the caudal most aspect of the sacrum, and the left ischial tuberosity, as described above, concerning for ongoing acute osteomyelitis" Ultrasound abdomen report "sludge and stones within the gallbladder with wall thickening, concerning for acute cholecystitis." Young will be admitted to hospitalist service for further treatment of Urinary tract infection and suspected osteomyelitis for chronic sacral wound. Allergies ampicillin Allergy (Verified 10/11/16 09:29) Anaphylaxis azithromycin Allergy (Verified 10/11/16 09:29) Hives lisinopril Allergy (Verified 10/11/16 09:29) kidney failure Penicillins Allergy (Verified 02/08/23 08:29) Hives/Rash shellfish derived Adverse Reaction (Verified 02/08/23 08:29) Anaphylaxis Home Medications: Amlodipine Besylate [Norvasc] 5 mg PO DAILY 11/29/15 Clonidine HCl [Catapres*] 0.2 mg PO DAILY 11/29/15 Gabapentin [Neurontin] 300 mg PO BID 11/29/15 Levothyroxine [Synthroid*] 100 mcg PO [id number] 11/29/15 Rosuvastatin [Crestor*] 10 mg PO BEDTIME 11/29/15 Triamterene/Hydrochlorothiazid [Triamterene-Hctz 37.5-25 mg Cp] 1 each PO DAILY 11/29/15 Montelukast [Singulair*] 10 mg PO BEDTIME 06/02/23 Collagenase [Santyl Ointment*] 1 appl TOP DAILY #30 gm 06/06/23 - Past Medical/Surgical History Diabetic: No -: Hypertension -: Dyslipidemia -: Rheumatoid arthritis -: Osteoarthritis -: Sacral decubitus ulcer -: Right Knee replacement -: Debridement of sacral wound - Family History Father -: Hypertension, Cancer Notes: prostate cancer Mother -: Hypertension, Stroke - Social History Smoking Status: Never smoker Alcohol use: No CD- Drugs: No Caffeine use: No Review of Systems Other: Per HPI Physical Examination - Physical Exam General: Alert, In no apparent distress, Oriented x3 HEENT: Atraumatic, Normocephalic Neck: Supple, 2+ carotid pulse no bruit Respiratory: Clear to auscultation bilaterally, Normal air movement Cardiovascular: Normal pulses, Regular rate/rhythm, Normal S1 S2 Capillary refill: <2 Seconds Gastrointestinal: Normal bowel sounds, Soft and benign Musculoskeletal: No clubbing Integumentary: Skin breakdown (Chronic sacral wound) Neurological: Normal speech, Normal tone - Studies Laboratory Data (last 24 hrs) 04/02/24 04/02/24 04/02/24 12:58 12:58 12:58 WBC 14.00 H Hgb 8.8 L Hct 27.5 L Plt Count 355 PT 13.9 H INR 1.33 Sodium 132 L Potassium 4.8 BUN 40 H Creatinine 2.12 H Glucose 95 Magnesium 1.9 Total Bilirubin 0.5 AST 29 ALT < 14 Alkaline Phosphatase 119 H Lipase 18 Assessment and Plan - Plan Assessment and plan Leukocytosis 2/2 Urinary tract infection associated with chronic Patton -WBC 14 -Merrem IV -Follow blood culture and urine culture -IV fluid -Monitor urinary output -Patton catheter placed 04/02/24 Acute cholecystitis -Abdominal US reports "Sludge and stones within the gallbladder with wall thickening, concerning for acute cholecystitis." -Dr. Perry consulted EDGAR secondary to dehydration -BUN/creatinine 40/2.12, GFR 26 -IV fluid Anemia -H&H 10/22 -Monitor in a.m. lab -Transfuse as needed Chronic sacral wound suspect acute osteomyelitis -Dr. Perry following -Vancomycin History of CVA History of arthritis Hypercholesterolemia Hypertension Hypothyroidism Kidney stone Osteoarthritis -Continue home medication -Supportive care DVT PPx heparin Full code LOS 2 to 3 days Discharge Plan: Home Plan to discharge in: 72 Hours - Advance Directives Does patient have a Living Will: No Does patient have a Durable POA for Healthcare: No
--- NOTE | 2024-04-02 16:25 | RAD REPORT ---
EXAM: CT CHEST, ABDOMEN AND PELVIS WITHOUT CONTRAST CLINICAL INDICATION: Female, 63 years old. [facility] Bed Name: 18 TECHNIQUE: CT chest, abdomen and pelvis was performed, without IV contrast, as per department protoco l. Axial, sagittal and coronal reconstructions were obtained. One or more of the following dose reduction techniques were used: Automated exposure control, adjustment of the mA and/or kV according to the patient size, and/or iterative reconstruction. Unless otherwise specified, incidental findings do not require dedicated imaging follow-up. COMPARISON: 06/25/2023 FINDINGS: The lack of intravenous contrast limits the sensitivity of this exam for evaluation of solid visceral organs, vascular structures, and retroperitoneum. Chest: LOWER NECK/CHEST WALL: Visualized thyroid gland and soft tissues are normal. LUNGS AND AIRWAYS: Airways are clear. No evidence of airspace or interstitial process. No nodules. PLEURA: No pleural effusion. No pneumothorax. Hemidiaphragms are normally positioned. MEDIASTINUM AND LYMPH NODES: No mediastinal mass or fluid collection. Normal size mediastinal, hilar, and axillary lymph nodes. THORACIC AORTA: Normal caliber and configuration. PULMONARY ARTERIES: Normal caliber. HEART: Unremarkable. Abdomen/Pelvis LIVER: Normal in size and contour. No focal lesion. GALLBLADDER/BILE DUCTS: Cholelithiasis. Pronounced pericystic fat stranding and nonlocalized edema, e xtending towards the adventitia of the ascending colon as well as more medially towards the second part of duodenum. PANCREAS: No mass, ductal dilation, or pepper-pancreatic fluid. SPLEEN: Normal size. No focal lesion. ADRENALS: Normal; no mass. KIDNEYS AND URETERS: Numerous bilateral parapelvic cysts again seen. 2 mm right lower pole nonobstruc ting calculus. Normal size and contour. No hydronephrosis. GASTROINTESTINAL TRACT: Stomach is non-dilated. Small bowel has normal course and caliber. No colonic wall thickening or pericolonic inflammatory changes. PERITONEUM: No free fluid. LYMPH NODES: No lymphadenopathy. ABDOMINAL AORTA AND OTHER VESSELS: Normal caliber aorta and IVC. URINARY BLADDER: Decompressed with Patton catheter in place. REPRODUCTIVE ORGANS: No pathologic process. MUSCULOSKELETAL: No acute fracture or vertebral compression deformity ADDITIONAL FINDINGS: Decubitus ulcer, reaching the periosteal surface of the left ischial tuberosity, with progressive sclerosis, and dystrophic calcifications just caudal to the level of the ulcer. This is progressive since the prior exam. Decubitus ulcer along the left aspect of the lower sacrum a lso appears progressive, with progressive osseous erosion of the S4 vertebral segment. Presacral edema again seen. IMPRESSION: Pronounced inflammatory changes centered around the gallbladder, with numerous gallstones present, co ncerning for acute cholecystitis. Adjacent inflammatory changes extend towards the alfaro of the ascending colon and second part of duodenum. Progressive decubitus ulcers with underlying osseous changes involving the caudal most aspect of the sacrum, and the left ischial tuberosity, as described above, concerning for ongoing acute osteomyelitis. Other incidental findings as above. THIS REPORT CONTAINS FINDINGS THAT MAY BE CRITICAL TO PATIENT CARE. The findings were verbally commun icated via telephone to Fam Hall MD on 04/02/2024 4:20 PM.
[2024-04-02] MEDS ORDERED: ACETAMINOPHEN 325 MG TABLET PO PRN (16:35)
--- NOTE | 2024-04-02 17:19 | RAD REPORT ---
EXAMINATION: US Abdomen Exam Limited CLINICAL HISTORY: [facility] MAIN Y ABD PAIN Bed Name: 18 COMPARISON: CT abdomen and pelvis of the same day TECHNIQUE: Limited upper abdominal grayscale and color flow sonographic images. FINDINGS: Gallbladder: Marked distention. Heterogeneous somewhat echogenic material near the neck, may represen t cysts large. Echogenic shadowing numerous gallbladder wall thickening up to 5 mm. Sonographic Baird's sign was not well assessed. Bile ducts: No intrahepatic or extrahepatic biliary dilatation. Common bile duct measures 5 mm. Liver: Visualized portions of the liver demonstrate normal echogenicity with no suspicious findings. Fluid: No ascites. IMPRESSION: Sludge and stones within the gallbladder with wall thickening, concerning for acute cholecystitis.
[2024-04-02] MEDS: NA CHLORIDE 0.9% 1,000 ML IV SCH (19:04)
[2024-04-02] MEDS: BISACODYL E.C. 5 MG TAB PO SCH (21:00)
[2024-04-02] MEDS: Meropenem 1,000 MG in NA CHLORIDE 0.9% 100 ML IV SCH (21:00)
[2024-04-02] MEDS ORDERED: HEPARIN 5000 UNIT/ML 1 ML VIAL ONE (21:46)
[2024-04-02] MEDS ORDERED: BISACODYL E.C. 5 MG TAB PO ONE (21:46)
[2024-04-02] MEDS: HEPARIN 5000 UNIT/ML 1 ML VIAL SQ SCH (21:50)
[2024-04-02 23:50] VITALS: BMI 25.4
[2024-04-03] MEDS ORDERED: NA CHLORIDE 0.9% 1,000 ML ONE (03:38)
[2024-04-03 06:42] LABS: Absolute Basophils 0.1 K/uL (0-0.5); Absolute Lymphocytes (CBC) 0.9 K/uL (0.7-4.9); Absolute Monocytes 0.8 K/uL (0.1-1.3); Absolute Neutrophil 9.5 K/uL (1.8-8.0); Basophils % 0.7 % (0-1.3); Eosinophils % 0.4 % (0-4.4); Hematocrit 26.5 % (36.0-45.0); Hemoglobin 8.5 g/dL (12.0-15.0); Lymphocytes % 7.6 % (15.3-44.8); MCHC 31.9 g/dL (32.0-36.0); MCV 78.4 fL (80-100); MPV 8.3 fL (7.6-11.3); Neutrophils % 84.3 % (41.7-73.7); Platelets 333 thou/uL (152-406); RBC Red Blood Cell Count 3.38 M/uL (3.86-4.86)
[2024-04-03 06:43] LABS: Anion Gap 11.3 mEq/L (5.0-15.0); Magnesium 1.8 mg/dL (1.6-2.4); Phosphorus 4.9 mg/dL (2.5-4.9); Potassium 4.3 mEq/L (3.5-5.1)
[2024-04-03] MEDS ORDERED: HEPARIN 5000 UNIT/ML 1 ML VIAL ONE (08:47)
[2024-04-03] MEDS ORDERED: NA CHLORIDE 0.9% 100 ML ONE (08:47)
[2024-04-03] MEDS ORDERED: BISACODYL E.C. 5 MG TAB PO ONE (08:47)
[2024-04-03] MEDS ORDERED: Meropenem 1000 MG/VIAL IV ONE (08:47)
[2024-04-03] MEDS ORDERED: MAGNESIUM SULFATE 1 gm IVPB 1 GM/100 ML BAG IV ONE (08:48)
[2024-04-03] MEDS ORDERED: VANCOMYCIN 1 GM in NA CHLORIDE 0.9% 250 ML IVPB SCH (09:00)
[2024-04-03] MEDS: MAGNESIUM SULFATE 1 gm IVPB 1 GM/100 ML BAG IV ONE (10:00)
--- NOTE | 2024-04-03 11:28 | EKG ---
Test Date: 2024-04-02 Test Time: 13:26:18 Americanization Teacher: HARVINDER MEASUREMENT RESULTS: Intervals: Rate: 84 OK: 144 QRSD: 66 QT: 366 QTc: 432 Onaway: P: 50 OK: 144 QRS: -18 T: -14 INTERPRETIVE STATEMENTS: Normal sinus rhythm Low voltage QRS Borderline ECG Compared to ECG 12/22/2023 04:21:19 Low QRS voltage now present Ventricular premature complex(es) no longer present Electronically Signed On 04-03-24 11:26:03 RESERVE OFFICER by Hermes Macias
[2024-04-03] MEDS: NA CHLORIDE 0.9% 500 ML IV ONE (13:45)
--- NOTE | 2024-04-03 15:54 | P.PN ---
Date of Service: 04/03/24 Subjective Sleeping comfortably No new complaints BP soft, responding to IVF ROS 10 point ROS as noted above, otherwise negative Physical Exam General: Alert and Oriented x3, NAD HEENT: Atraumatic, Normocephalic Neck: Supple, 2+ carotid pulse no bruit Respiratory: Clear to auscultation bilaterally, Normal air movement Cardiovascular: Normal pulses, RRR, Normal S1 S2 Capillary refill: <2 Seconds Gastrointestinal: Normal bowel sounds, Soft and benign on palpation, ND/NT Musculoskeletal: No clubbing Integumentary: Skin breakdown (Chronic sacral wound) Neurological: Normal speech, Normal tone Vitals Reviewed Problem list Leukocytosis 2/2 Urinary tract infection associated with chronic Patton Acute cholecystitis EDGAR secondary to dehydration Anemia Chronic sacral wound suspect acute osteomyelitis History of CVA History of arthritis Hypercholesterolemia Hypertension Hypothyroidism Kidney stone Osteoarthritis Assessment and Plan Leukocytosis 2/2 Urinary tract infection associated with chronic Patton -WBC 11.3 -Merrem IV -Follow blood culture and urine culture -IV fluid -Monitor urinary output -Patton catheter placed 04/02/24 Acute cholecystitis -Abdominal US reports "Sludge and stones within the gallbladder with wall thickening, concerning for acute cholecystitis." -Dr. Perry consulted EDGAR secondary to dehydration -BUN/creatinine 40/2.30, GFR 23 -IV fluid Anemia -H&H 10/21- stable -Monitor in a.m. lab -Transfuse as needed Chronic Sacral stage IV pressure ulcer and left ischial stage III pressure ulcer -Dr. Perry following -Vancomycin -Sacral stage IV pressure ulcer and Left Ischial stage III pressure ulcer- cleanse with vashe. Apply Santyl to wound bed, gauze, foam and medipore tape daily. History of CVA History of arthritis Hypercholesterolemia Hypertension Hypothyroidism Kidney stone Osteoarthritis -Continue home medication -Supportive care DVT PPx heparin Full code LOS 2 to 3 days Discharge Plan: Home Plan to discharge in: 72 Hours
[2024-04-03] MEDS: NA CHLORIDE 0.9% 1,000 ML IV SCH (17:46)
[2024-04-03] MEDS: COLLAGENASE 30 GM OINTMENT TOP SCH (18:18)
--- NOTE | 2024-04-03 19:30 | CON ---
Date of Consultation: 04/03/2024 Diagnoses: Urinary retention, sacral decubitus ulcer, and also symptomatic cholelithiasis. History Of Present Illness: The patient was admitted to the hospital. They noticed that she has bee n low urine output for the last few weeks and when they put a Patton catheter, they also saw a diminis hed amount. The patient has been treated by a local surgeon, Dr. Perry for an osteomyelitis of the s acral wound with wound care. He was nice enough to evaluate this morning, but he has to be out of to wn, so he asked me to see if I can cover her from the gallbladder standpoint pathology. The patient states she has been hurting for about 3 weeks in the right upper quadrant, on and off spasm, one day get better, one day get worse. Today, right now she is having lunch and I advised her the importance of just hold until we can clarify her diagnosis. No shortness of breath. No chest pain. No fever. Review of Systems: The rest of review of systems, see HPI. Ten points otherwise unremarkable. She is having crampy abd ominal pain on and off for the last 3 weeks. See above for details. Allergies: AMPICILLIN, LISINOPRIL, PENICILLIN, SHELLFISH. Medications: Include Norvasc, Catapres, Neurontin, Synthroid, Crestor, Singulair, and Santyl to her wounds. Medical Problems: Include hypertension, rheumatoid arthritis, chronic sacral decubitus ulcers, osteo arthritis. Past Surgical History: Include right knee replacement and debridements of sacral decubitus ulcers. Family History: Include hypertension, prostate cancer. Social History: She does not smoke. She does not drink alcohol. Physical Examination: Vital Signs: Reviewed. Systolic blood pressure 118. General: The patient is awake, no apparent distress. Oriented x3. Actually, even though she has pa in in the right upper quadrant, she has a tray and she is eating at this moment, although she is getting nauseous again. HEENT: Pupils are equal and reactive. Anicteric. Neck: Supple. Chest: Clear. Heart: S1, S2. Abdomen: Right upper quadrant epigastric pain. The rest of the lower abdomen is soft and depressibl e. Breasts: Deferred. Rectal: Deferred. Pelvic: Deferred. Extremities: Good capillary refill. Laboratory Data: Blood work shows WBC count of 11.3, hemoglobin of 8.5, and platelets of 333. INR i s 1.3. Potassium 4.3, creatinine is 2.3, glucose 69. Imaging: CT scan of the abdomen and pelvis interpreted by as pronounced inflammatory changes center on the gallbladder, number of gallstones, concerning for acute cholecystitis. Assessment And Plan: This is a 63-year-old patient with acute cholecystitis, symptomatic cholelithia sis. Also the patient has some genitourinary pathology that doctors are planning to fix and also sac ral decubitus ulcer. From the surgical standpoint, the medical doctors will try to work overnight on her to see if we can get her a little bit clinically stable. Then at that moment, we have to decide if a cholecystectomy will be done. We explained still to her the benefits, alternatives, and risks of laparoscopic possible open cholecystectomy which include, but not limited to infection, bleeding, damage to adjacent structures, anesthesia complication, NC, and even . Also explained to her ri t now that she is taking regular diet at this moment in front of me that if we believe the gallblad kandi is like that, we might have to just left that gallbladder rest and not use it until we clarify completely and medically see if she is able to have a cholecystectomy done. JASMIN/PETER Voice ID: [id number] Report ID: [id number]
[2024-04-03] MEDS: VANCOMYCIN 1.25 GM in NA CHLORIDE 0.9% 250 ML IVPB SCH (19:36)
[2024-04-04 08:23] LABS: Absolute Basophils 0.1 K/uL (0-0.5); Absolute Eosinophils 0.1 K/uL (0-0.5); Absolute Lymphocytes (CBC) 0.5 K/uL (0.7-4.9); Absolute Monocytes 0.5 K/uL (0.1-1.3); Absolute Neutrophil 8.1 K/uL (1.8-8.0); Basophils % 0.7 % (0-1.3); Eosinophils % 1.1 % (0-4.4); Hematocrit 28.3 % (36.0-45.0); Hemoglobin 9.1 g/dL (12.0-15.0); Lymphocytes % 5.8 % (15.3-44.8); MCH 24.8 pg (27.0-35.0); MCHC 32.2 g/dL (32.0-36.0); MCV 77.1 fL (80-100); MPV 7.9 fL (7.6-11.3); Monocytes % 5.7 % (3.3-12.3); Neutrophils % 86.7 % (41.7-73.7); Platelets 361 thou/uL (152-406); RBC Red Blood Cell Count 3.67 M/uL (3.86-4.86); Red Cell Distribution Width 16.9 % (12.1-15.2)
[2024-04-04 08:36] LABS: Anion Gap 12.8 mEq/L (5.0-15.0); Potassium 3.8 mEq/L (3.5-5.1)
[2024-04-04] MEDS: MAGNESIUM SULFATE 1 gm IVPB 1 GM/100 ML BAG IV ONE (09:44)
[2024-04-04 09:58] LABS: Blood Morphology Comment NOTED (NOT SEEN); Platelet Estimate ADEQ; Platelets Clumped FEW; White Blood Cell Scan OK (OK)
[2024-04-04 09:59] LABS: Burr Cells 3+
[2024-04-04] MEDS: ONDANSETRON 4 MG/2 ML VIAL IV PRN (12:21)
--- NOTE | 2024-04-04 13:42 | P.PN ---
Date of Service: 04/04/24 Subjective Awake and conversing well no new complaints ROS 10 point ROS as noted above, otherwise negative Physical Exam General: AAOx3, NAD HEENT: Atraumatic, Normocephalic Neck: Supple, 2+ carotid pulse no bruit Respiratory: Clear BBS, Normal air movement, on RA Cardiovascular: Normal pulses, RRR, Normal S1 S2 Capillary refill: <2 Seconds Gastrointestinal: Normal bowel sounds, Soft and benign on palpation, ND/NT Musculoskeletal: No clubbing Integumentary: Skin breakdown (Chronic sacral wound) Neurological: Normal speech, Normal tone Vitals Reviewed Problem list Leukocytosis 2/2 Urinary tract infection associated with chronic Patton Acute cholecystitis EDGAR secondary to dehydration Anemia Chronic sacral wound suspect acute osteomyelitis History of CVA History of arthritis Hypercholesterolemia Hypertension Hypothyroidism Kidney stone Osteoarthritis Assessment and Plan Leukocytosis 2/2 Urinary tract infection associated with chronic Patton -WBC 9.3 -Vancomycin/ Trough 26.0, will redraw in the AM -blood culture NGTD -urine culture: Methicillin-resistant Staphylococcus aureus sensitive to vancomycin -IV fluid -Monitor urinary output-1200 UOP -Patton catheter placed 04/02/24 Acute cholecystitis -Abdominal US reports "Sludge and stones within the gallbladder with wall thickening, concerning for acute cholecystitis." -Dr. Perry consulted EDGAR secondary to dehydration -BUN/creatinine 47/2.75, GFR 19 -IV fluid -Nephrology consulted Anemia -H&H 9.1/28.3- stable -Monitor in a.m. lab -Transfuse as needed Chronic Sacral stage IV pressure ulcer and left ischial stage III pressure ulcer -Dr. Perry following -Vancomycin -Sacral stage IV pressure ulcer and Left Ischial stage III pressure ulcer- cleanse with vashe. Apply Santyl to wound bed, gauze, foam and medipore tape daily. History of CVA History of arthritis Hypercholesterolemia Hypertension Hypothyroidism Kidney stone Osteoarthritis -Continue home medication -Supportive care DVT PPx heparin Full code LOS 2 to 3 days Discharge Plan: Home Plan to discharge in: 72 Hours
[2024-04-04] MEDS: D5W 1,000 ML with NA BICARB 8.4% 150 MEQ IV SCH (18:40)
[2024-04-04] MEDS: Meropenem 500 MG in NA CHLORIDE 0.9% 100 ML IV SCH (20:02)
--- NOTE | 2024-04-04 21:32 | PN ---
Date of Progress Note: 04/04/2024 Reason For Service: , acute cholecystitis. Subjective: This is a case of a female, who comes to us with UTI. During the process, they found al so to have multiple medical problems including acute cholecystitis and an osteomyelitis of the sacral wound. I was asked to see the patient for acute cholecystitis . The patient feels better . She is hungry. She wants to eat. The pain is better. She has been having this epigastric right upper quadrant pain for almost a month on and off, getting better, getting worse. When we noticed th e study shows acute cholecystitis. There is a lot of inflammation over the area including also some other areas away from the gallbladder. We explained to her the options of cholecystectomy versus the antibiotics. Obviously with all that inflammation in that region, we might have to do an open inter vention laparoscopic versus open cholecystectomy. At the same time, if the swelling got better since it has been there for some time and she responds to antibiotics, we might also be able to do this un kandi more control setting when the swelling goes down. It is difficult to predict at this moment, whi ch way she is going to go. She prefer to just try the antibiotics first and she wants some clear liq uid diet, so we going to trying to do that since the white blood cell count is normal. Bilirubin is normal and she still have to deal with the osteomyelitis in the sacrum and the UTI. Objective: Abdomen: At this moment is soft and depressible. There is mild epigastric tenderness, b ut no peritonitis. Extremities: Good capillary refill. Laboratory Data: Once again, WBC count is 9.3, hemoglobin is 9.1, platelets of 361. The total bilir ubin of 0.5 and alkaline phosphate 119, AST 29, ALT 14. Plan: We are going to continue with antibiotics. She understand that even if she get better during this process, we will get to bring the swelling down, she still should go for cholecystectomy electiv connie. Once swelling go down since we cannot rule out any other issues not only cholecystitis, bu t also neoplasia. HM/MODL Voice ID: [id number] Report ID: [id number]
--- NOTE | 2024-04-04 23:52 | CON ---
Date of Consultation: 04/04/2024 Chief Complaint: Urinary tract infection, low urine output. Reason For Consultation: Acute kidney injury, acidosis. History Of Present Illness: This is a 63-year-old woman with past medical history of chronic sacral ulcer that required Patton catheter placement and for urine diversion, hypercholesterolemia, hypertens ion, hypothyroidism, and history of nephrolithiasis. The patient presented to the ER complaining of low urine output. The patient stated she had very low urine output. On the day of admission, she re ported low oral intake. Her baseline creatinine was 0.4, back in 2023. Upon admission, creatinine [address] scan showed no hydronephrosis. The patient was started on IV fluids. Urine output improved, but her creatinine continued to increase. Nephrology consulted for further evaluation. The patient stated she was started on ciprofloxacin 1 week ago. She reported taking ciprofloxacin in the past w ith no significant side effects. Past Medical History: Hypertension, recurrent UTI. Past Surgical History: Sacral wound debridement. Allergies: ALLERGIC TO MULTIPLE MEDICATIONS INCLUDING AMPICILLIN, AZITHROMYCIN, LISINOPRIL, PENICILL IN. Family History: Noncontributory. Review of Systems: Positive for weakness. Denied nausea, vomiting, diarrhea, or constipation, dysuria, hematuria, or yasmin int swelling. Laboratory Data: White count 9.3, hemoglobin 9.1. Sodium 138, potassium 3.8, bicarb of 14, creatini ne 2.7. Vancomycin level of 26. Assessment And Plan: 1. Acute kidney injury, unclear etiology. AIN induced by fluoroquinolones is less likely as patient received ciprofloxacin in the past. She had a history of nephrolithiasis with CT scan showed no obst ructing calculi. Continue IV fluids, to switch to bicarbonate drip, we will order serology workup. Renal dose medication. Consider to hold vancomycin at this time. Dose has already been adjusted. 2. Urinary tract infection. White count trending down. Continue antibiotic. 3. Sacral decubitus wound. With respect to osteomyelitis, continue antibiotic and wound care. 4. Metabolic acidosis, we will switch the fluids to bicarbonate drip. 5. Mild hyponatremia, improved. Encouraged to increase diet as tolerated. 6. Anemia of chronic disease. Monitor H and H and transfuse if hemoglobin less than 7. Thanks for allowing me to participate in the patient's care. Total time spent 75 minutes including d ocumentation, reviewing labs, and placing orders. AA/PETER Voice ID: [id number] Report ID: [id number]
--- NOTE | 2024-04-05 06:36 | P.PN ---
Date of Service: 04/05/24 Subjective Awake, Talking on the phone with family CLD today ROS 10 point ROS as noted above, otherwise negative Physical Exam General: Alert and oriented x3, NAD HEENT: Atraumatic, Normocephalic Neck: Supple, 2+ carotid pulse no bruit Respiratory: Clear BBS, symmetrical chest wall movement, on RA Cardiovascular: Normal pulses, RRR, Normal S1 S2 Capillary refill: <2 Seconds Gastrointestinal: Normal bowel sounds, Soft on palpation, ND/NT Musculoskeletal: No clubbing Integumentary: Skin breakdown (Chronic sacral wound) Neurological: Normal speech, Normal tone Vitals Reviewed Problem list Leukocytosis 2/2 Urinary tract infection associated with chronic Patton Acute cholecystitis EDGAR secondary to dehydration Anemia Chronic Sacral stage IV pressure ulcer and left ischial stage III pressure ulcer Suspected osteomylitis History of CVA History of arthritis Hypercholesterolemia Hypertension Hypothyroidism Kidney stone Osteoarthritis Assessment and Plan Leukocytosis 2/2 Urinary tract infection associated with chronic Patton -WBC 5.9 -blood culture NGTD -urine culture: Methicillin-resistant Staphylococcus aureus sensitive to vancomycin -Vancomycin trough >45/26, stopped vancomycin -continue merrem and started doxycycline -IV fluid -Monitor urinary output-1200 UOP -Patton catheter placed 04/02/24 Acute cholecystitis -Abdominal US reports "Sludge and stones within the gallbladder with wall thickening, concerning for acute cholecystitis." -Dr. Perry consulted EDGAR secondary to dehydration metabolic acidosis -BUN/creatinine 47/2.75, GFR 19 -IV fluid -Nephrology consulted -bicarb gtt started Anemia -H&H 8.8/26.5- stable -Monitor in a.m. lab -Transfuse as needed Chronic Sacral stage IV pressure ulcer and left ischial stage III pressure ulcer Suspected osteomylitis -Dr. Perry following -Vancomycin stopped, doxycycline -Sacral stage IV pressure ulcer and Left Ischial stage III pressure ulcer- cleanse with vashe. Apply Santyl to wound bed, gauze, foam and medipore tape daily. History of CVA History of arthritis Hypercholesterolemia Hypertension Hypothyroidism Kidney stone Osteoarthritis -Continue home medication -Supportive care DVT PPx heparin Full code LOS 2 to 3 days Discharge Plan: Home Plan to discharge in: 72 Hours
[2024-04-05 06:49] LABS: Absolute Basophils 0.1 K/uL (0-0.5); Absolute Lymphocytes (CBC) 0.7 K/uL (0.7-4.9); Absolute Monocytes 0.4 K/uL (0.1-1.3); Absolute Neutrophil 4.7 K/uL (1.8-8.0); Eosinophils % 0.6 % (0-4.4); Hematocrit 26.5 % (36.0-45.0); Hemoglobin 8.8 g/dL (12.0-15.0); Lymphocytes % 12.5 % (15.3-44.8); MCH 25.5 pg (27.0-35.0); MCV 77.3 fL (80-100); MPV 7.5 fL (7.6-11.3); Monocytes % 7.4 % (3.3-12.3); Neutrophils % 78.5 % (41.7-73.7); Nucleated Red Blood Cells % 0.1 % (0-0); Platelets 366 thou/uL (152-406); RBC Red Blood Cell Count 3.44 M/uL (3.86-4.86); Red Cell Distribution Width 16.9 % (12.1-15.2)
[2024-04-05 06:55] LABS: Thyroid Stimulating Hormone 50.5 uIU/mL (0.358-3.740)
[2024-04-05 06:56] LABS: Anion Gap 13.5 mEq/L (5.0-15.0); Magnesium 2.5 mg/dL (1.6-2.4); Phosphorus 5.5 mg/dL (2.5-4.9); Potassium 3.5 mEq/L (3.5-5.1)
[2024-04-05 08:16] LABS: Rheumatoid Factor POS (NEG); Rheumatoid Factor Titer 1:512(2048 RF IU/mL)
[2024-04-05 08:28] LABS: Hepatitis B surface AG Interp. Nonreactive (Nonreactive)
[2024-04-05 08:29] LABS: HBsAG Nonreactive Report Report
[2024-04-05 09:00] LABS: Hepatitis B Core Ab, Total Nonreactive (Nonreactive)
[2024-04-05] MEDS: LINEZOLID 600 MG IVPB 600 MG/300 ML BAG IV SCH (09:00)
[2024-04-05 10:13] LABS: Hepatitis B Surface Ab - Quant < 3.10
[2024-04-05] MEDS: NA CHLORIDE 0.9% 500 ML IV ONE (16:24)
--- NOTE | 2024-04-05 20:41 | PN ---
Date of Progress Note: 04/05/2024 Subjective: The patient was admitted to the hospital with UTI and had acute kidney injury secondary to vancomycin toxicity. Objective: Vital Signs: When I saw the patient, blood pressure 96/58, pulse of 70, afebrile. Chest: Clear to auscultation. Heart: S1, S2. Regular. Abdomen: Soft, nontender. Extremity: No edema. Neurologic: Alert. No tremor. Laboratory Data: Sodium 139, potassium 3.5, bicarb 16, BUN 48, creatinine 3, GFR of 17, calcium 7.4, phosphorus 5.5, magnesium 2.2. Serum protein electrophoresis still pending; TSH of 50, PTH 38. WBC 5.9, hemoglobin 8.8. Serology still pending. Rheumatoid factor positive. Current Medications: The patient on include: 1. Doxycycline. 2. Meropenem. 3. Bicarb drip. Assessment And Plan: 1. Acute kidney injury secondary to vancomycin toxicity. Obstructive uropathy has been ruled out with ultrasound. I am going to continue hydration. As kidney function continued to decline, the patient may need renal replacement therapy. We will follow up. 2. Hypertension, currently blood pressure on the lower side. Hold all blood pressure medications. I will bolus the patient with 500 of normal saline and we will follow up. 3. Hyponatremia secondary to depletional, recovered, resolved. 4. Hypokalemia. We will supplement cautiously. 5. Anemia of chronic kidney disease with acute kidney injury. We will follow up serum protein, electrophoresis. Time spent examining the patient [id number] reviewing data lab and an audiology placing order discussing the case with the patient discussing the case with the marine steam fitter helper including hospitalist and nursing staff more than 55-minute BRO Voice ID: [id number] Report ID: [id number] JADEN
[2024-04-05] MEDS: DOXYCYCLINE 100 MG in NA CHLORIDE 0.9% 100 ML IVPB SCH (20:53)
--- NOTE | 2024-04-06 02:07 | PN ---
Date of Progress Note: 04/05/2024 Diagnoses: Urinary tract infection, osteomyelitis in the sacrum, acute cholecystitis. Subjective: Doing better. Tolerating diet. No nausea, no vomiting. No shortness of breath. No ch est pain. Passing flatus and bowel movement. WBC count of 5.9 with hemoglobin of 8.8. Potassium st at 3.5. Objective: Vital Signs: Temperature is 98 with pulse 81, respirations 18. General: The patient is awake, alert. HEENT: Pupils are equal and reactive. Anicteric. Neck: Supple. Chest: Clear. Heart: S1, S2. Abdomen: Mild epigastric pain. No peritonitis. Soft and depressible. Extremities: Good capillary refill in extremities. Plan: We can advance to full liquid. She is going to continue on antibiotics treatment. she clinically deteriorates, then she is going to need the surgery during this admission. If she im proves with diet, then electively will be done once the swelling goes down and the rest of the workup is done that may include treating the UTI and also osteomyelitis. JASMIN/PETER Voice ID: [id number] Report ID: [id number]
[2024-04-06] MEDS: D5W 1,000 ML with NA BICARB 8.4% 150 MEQ IV SCH (04:39)
[2024-04-06 07:12] LABS: Absolute Basophils 0.1 K/uL (0-0.5); Absolute Eosinophils 0.1 K/uL (0-0.5); Absolute Lymphocytes (CBC) 1.6 K/uL (0.7-4.9); Absolute Monocytes 0.5 K/uL (0.1-1.3); Absolute Neutrophil 3.4 K/uL (1.8-8.0); Basophils % 0.9 % (0-1.3); Eosinophils % 0.9 % (0-4.4); Hematocrit 27.8 % (36.0-45.0); Hemoglobin 9.1 g/dL (12.0-15.0); Lymphocytes % 28.3 % (15.3-44.8); MCH 25.3 pg (27.0-35.0); MCHC 32.8 g/dL (32.0-36.0); MCV 77.1 fL (80-100); MPV 7.3 fL (7.6-11.3); Monocytes % 9.6 % (3.3-12.3); Neutrophils % 60.3 % (41.7-73.7); Nucleated Red Blood Cells % 0.2 % (0-0); Platelets 356 thou/uL (152-406); Red Cell Distribution Width 17.2 % (12.1-15.2)
[2024-04-06 07:23] LABS: Anion Gap 12.5 mEq/L (5.0-15.0); Magnesium 2.3 mg/dL (1.6-2.4); Phosphorus 5.4 mg/dL (2.5-4.9); Potassium 3.5 mEq/L (3.5-5.1)
[2024-04-06] MEDS: POTASSIUM 25 MEQ EFFERV TAB PO ONE (09:00)
[2024-04-06] MEDS: HYDROCODONE/APAP 5/325 MG TAB PO PRN (11:52)
--- NOTE | 2024-04-06 19:53 | P.PN ---
Date of Service: 04/06/24 Subjective feeling well, advanced diet to FLD and tolerating well no new complaints ROS 10 point ROS as noted above, otherwise negative Physical Exam General: AAOx3, NAD HEENT: Atraumatic, Normocephalic Neck: Supple, 2+ carotid pulse no bruit Respiratory: Clear BBS, non-labored breathing, on RA Cardiovascular: Normal pulses, HR 74, Normal S1 S2 Capillary refill: <2 Seconds Gastrointestinal: Normal active bowel sounds, Soft on palpation, ND/NT Musculoskeletal: No clubbing Integumentary: Skin breakdown (Chronic sacral wound) Neurological: Normal speech, Normal tone Vitals Reviewed Problem list Leukocytosis 2/2 Urinary tract infection associated with chronic Bang Acute cholecystitis EDGAR secondary to dehydration Anemia Chronic Sacral stage IV pressure ulcer and left ischial stage III pressure ulcer Suspected osteomylitis History of CVA History of arthritis Hypercholesterolemia Hypertension Hypothyroidism Kidney stone Osteoarthritis Assessment and Plan Leukocytosis 2/2 Urinary tract infection associated with chronic Bang -WBC WNL -blood culture NGTD -urine culture: Methicillin-resistant Staphylococcus aureus sensitive to vancomycin -Vancomycin trough >45/26, trough pending, hold vancomycin -continue doxycycline -IV fluid -Monitor urinary output-1520 UOP -Bang catheter placed 04/02/24, chronic bang catheter Acute cholecystitis -Abdominal US reports "Sludge and stones within the gallbladder with wall thickening, concerning for acute cholecystitis." -General surgery following EDGAR secondary to dehydration metabolic acidosis -BUN/creatinine 45/3.03, GFR 17 -IV fluid -Nephrology following, recommendations appreciated -continue bicarb gtt Anemia -H&H 9.1/27.8- stable -Monitor in a.m. lab -Transfuse as needed Chronic Sacral stage IV pressure ulcer and left ischial stage III pressure ulcer Suspected osteomylitis -Dr. Perry following -Vancomycin on hold, continue doxycycline -Sacral stage IV pressure ulcer and Left Ischial stage III pressure ulcer- cleanse with vashe. Apply Santyl to wound bed, gauze, foam and medipore tape daily. History of CVA History of arthritis Hypercholesterolemia Hypertension Hypothyroidism Kidney stone Osteoarthritis -Continue home medication -Supportive care DVT PPx heparin Full code LOS 2 to 3 days Discharge Plan: Home Plan to discharge in: 72 Hours
[2024-04-06] MEDS ORDERED: VANCOMYCIN 1.25 GM in NA CHLORIDE 0.9% 250 ML IVPB SCH (21:00)
[2024-04-06] MEDS: SODIUM BICARB 325 MG TAB PO SCH (21:38)
--- NOTE | 2024-04-06 23:37 | PN ---
Date of Progress Note: 04/06/2024 Subjective: The patient was admitted to the hospital with UTI and acute kidney injury secondary to vanc toxicity. The patient was treated. Kidney function plateaued. The patient nonoliguric. Physical Examination: Vital Signs: Blood pressure 97/66, pulse of 75, afebrile. Chest: Clear to auscultation. Heart: S1, S2. Systolic murmur. Abdomen: Soft, nontender. Extremity: No edema. Neurologic: Alert. No focality. Laboratory Data: Sodium 141, potassium 3.5, bicarb 18, BUN 45, creatinine 3, GFR of 17, calcium 7.3, phosphorus 5.4, magnesium 2.3. Serum protein electrophoresis still pending. TSH of 50, PTH 38. Urinalysis positive for infection. Current Medications: Current medications the patient is on include doxycycline, meropenem, IV fluid. Assessment And Plan: 1. Acute kidney injury secondary to vanc toxicity, nonoliguric. No hyperkalemia. Has marginal acidosis. No significant uremic symptoms. I do not see the need to initiate any renal replacement therapy. Keep holding the vancomycin for the time being. We will start oral bicarb and we will monitor. 2. Hypertension, controlled, optimal. Currently blood pressure on the lower side. Continue to monitor. 3. Hyponatremia, depletional. Continue hydration. 4. Hypokalemia. We will supplement cautiously. 5. Anemia of chronic kidney disease, stable. 6. Urinary tract infection with Methicillin-resistant Staphylococcus aureus. 7. Continue current treatment. Follow up with ID. Time spent examining the patient [id number] reviewing data lab and an audiology placing order discussing the case with the patient discussing the case with the pressure steamer tender including hospitalist and nursing staff more than 55-minute BRO Voice ID: [id number] Report ID: [id number] JADEN
[2024-04-07 05:58] LABS: Absolute Basophils 0.1 K/uL (0-0.5); Absolute Eosinophils 0.1 K/uL (0-0.5); Absolute Lymphocytes (CBC) 1.9 K/uL (0.7-4.9); Absolute Monocytes 0.6 K/uL (0.1-1.3); Absolute Neutrophil 3.7 K/uL (1.8-8.0); Basophils % 0.9 % (0-1.3); Eosinophils % 1.3 % (0-4.4); Hematocrit 28.8 % (36.0-45.0); Hemoglobin 9.4 g/dL (12.0-15.0); Lymphocytes % 30.3 % (15.3-44.8); MCH 24.8 pg (27.0-35.0); MCHC 32.8 g/dL (32.0-36.0); MCV 75.9 fL (80-100); MPV 7.6 fL (7.6-11.3); Monocytes % 9.6 % (3.3-12.3); Neutrophils % 57.9 % (41.7-73.7); Nucleated Red Blood Cells % 0.1 % (0-0); Platelets 411 thou/uL (152-406); RBC Red Blood Cell Count 3.79 M/uL (3.86-4.86); Red Cell Distribution Width 16.9 % (12.1-15.2)
[2024-04-07 06:11] LABS: Anion Gap 10.9 mEq/L (5.0-15.0); Magnesium 2.2 mg/dL (1.6-2.4); Phosphorus 5.4 mg/dL (2.5-4.9); Potassium 3.9 mEq/L (3.5-5.1)
[2024-04-07] MEDS: LEVOTHYROXINE SOD 0.125 MG TAB PO SCH (08:30)
--- NOTE | 2024-04-07 14:41 | P.PN ---
Date of Service: 04/07/24 Subjective Not tolerating FLD, abdominal pain Repeat CT abd/pelvis, Dr. Valdez to review ROS 10 point ROS as noted above, otherwise negative Physical Exam General: AAOx3, NAD, afebrile HEENT: Atraumatic, Normocephalic Neck: Supple, 2+ carotid pulse no bruit Respiratory: Clear Bilateral breath sounds, on RA Cardiovascular: HR 80/RRR, Normal S1 S2 present Capillary refill: <2 Seconds Gastrointestinal: Normal active bowel sounds, Soft on palpation, Tender RUQ Musculoskeletal: No clubbing Integumentary: Skin breakdown (Chronic sacral wound) Neurological: Normal speech, Normal tone Vitals Reviewed Problem list Leukocytosis 2/2 Urinary tract infection associated with chronic Bang Acute cholecystitis EDGAR secondary to dehydration Anemia Chronic Sacral stage IV pressure ulcer and left ischial stage III pressure ulcer Suspected osteomylitis History of CVA History of arthritis Hypercholesterolemia Hypertension Hypothyroidism Kidney stone Osteoarthritis Assessment and Plan Leukocytosis 2/2 Urinary tract infection associated with chronic Bang -WBC WNL -blood culture NGTD -urine culture: Methicillin-resistant Staphylococcus aureus sensitive to vancomycin -Vancomycin trough >45/26, Stop vancomycin -continue doxycycline and Merrem -Monitor urinary output -Bang catheter placed 04/02/24, chronic bang catheter Acute cholecystitis -Abdominal US reports "Sludge and stones within the gallbladder with wall thickening, concerning for acute cholecystitis." -Repeat CT abd/pelvis per Dr. Valdez -Dr. Valdez following EDGAR secondary to dehydration metabolic acidosis -BUN/creatinine 43/2.88, GFR 18 -Nephrology following, recommendations appreciated -continue Sodium bicarb PO Anemia -H&H 9.4/28.8- stable -Monitor in a.m. lab -Transfuse as needed Chronic Sacral stage IV pressure ulcer and left ischial stage III pressure ulcer Suspected osteomylitis -Dr. Valdez following -continue doxycycline and merrem -Sacral stage IV pressure ulcer and Left Ischial stage III pressure ulcer- cleanse with vashe. Apply Santyl to wound bed, gauze, foam and medipore tape daily. History of CVA History of arthritis Hypercholesterolemia Hypertension Hypothyroidism Kidney stone Osteoarthritis -Continue home medication -Supportive care DVT PPx heparin Full code LOS 2 to 3 days Discharge Plan: Home Plan to discharge in: 72 Hours
--- NOTE | 2024-04-07 15:28 | RAD REPORT ---
EXAMINATION: CT ABDOMEN AND PELVIS WITHOUT CONTRAST CLINICAL INDICATION: Female, 63 years old.Serial, comparison to 04/02 TECHNIQUE: CT abdomen and pelvis was performed, without IV contrast, as per department protocol. Axia l, sagittal and coronal reconstructions were obtained. One or more of the following dose reduction techniques were used: Automated exposure control, adjustment of the mA and/or kV according to the pat ient size, and/or iterative reconstruction. Unless otherwise specified, incidental findings do not require dedicated imaging follow-up. [id number]. IV CONTRAST: Not administered. COMPARISON: 04/02/2024 FINDINGS: The lack of intravenous contrast limits the sensitivity of this exam for evaluation of solid visceral organs, vascular structures, and retroperitoneum. LOWER CHEST: Small bilateral effusions.No significant pericardial effusion. Coronary artery calcifica tions present. UPPER GI: No significant abnormality. LIVER: No significant focal abnormality. GALLBLADDER/BILE DUCTS: Cholelithiasis is present. Mild gallbladder wall thickening though the degree of stranding has improved somewhat compared with 04/02/2024.? PANCREAS: No mass, ductal dilation, or pepper-pancreatic fluid. SPLEEN: Mild splenomegaly. ADRENALS: No adrenal masses. KIDNEYS AND URETERS: No hydronephrosis.Low density and/or too small to characterize renal lesions whi ch are statistically benign.Nonobstructing renal calculi. ABDOMINAL AORTA AND OTHER VESSELS: Mild atherosclerotic changes. PERITONEUM: Presacral edema. LYMPH NODES: No pathologic lymphadenopathy. ABDOMINAL WALL: Body wall edema. Decubitus ulcer at the left ischium with probable underlying osteomy elitis. There is a sacral decubitus ulcer as well and suspected underlying chronic osteomyelitis. SMALL BOWEL/COLON: Wall thickening present at the distal sigmoid and rectum. There is also some assoc iated mesenteric edema.No bowel obstruction. No appendicitis. Mild diverticulosis without diverticulitis. URINARY BLADDER: Patton catheter in bladder REPRODUCTIVE ORGANS: Uterus surgically absent. No adnexal abnormality. MUSCULOSKELETAL: Remote L3 compression fracture. Probable osteomyelitis of the left ischium and sacru m. ADDITIONAL FINDINGS: None. IMPRESSION: 1. Inflammatory changes around the gallbladder have improved though not resolved. In addition, there is less gallbladder distention. 2. New colonic wall thickening of the distal sigmoid as well as at the rectum concerning for proctoco litis. 3. Increasing anasarca including new small bilateral pleural effusions.
--- NOTE | 2024-04-07 17:28 | PN ---
Reason For Service: Acute cholecystitis. Subjective: The patient has UTI. Also has osteomyelitis. The patient is awake, alert, feels better . Still nausea on and off. Objective: Vital Signs: Afebrile. Respirations 16. Blood pressure 113/73. Chest: Clear. Abdomen: Soft and depressible. Mild epigastric tenderness. No rebound. Extremities: Good capillary refill. Laboratory Data: Blood work shows a WBC count of 6.3, hemoglobin of 9.4. Plan: We have been giving her antibiotics trying to see if we can cool the inflammation down a littl e bit. She is dealing with many things at the same time including UTI and osteomyelitis. Still she has a normal white count. No fever. We are advancing the diet slowly. We are going to get an imagi ng in the next 24-48 hours and see her progress, see where we are heading. I discussed the case with Dr. Noland already. JASMIN/PETER Voice ID: [id number] Report ID: [id number]
[2024-04-07 19:22] LABS: UR PROTEIN 18.3 mg/dL (<11.9)
[2024-04-07 19:23] LABS: UR CREAT < 18.0 mg/dL (20-320)
[2024-04-07] MEDS: JUVEN PACKET PO SCH (21:12)
--- NOTE | 2024-04-07 23:33 | PN ---
Date of Progress Note: 04/07/2024 Subjective: The patient is admitted to the hospital because of acute kidney injury and urinary tract infection. The patient was treated with vancomycin and developed progressively worse kidney functio n. Renal function has declined. Currently, the patient is nonoliguric and renal function is plateau ing. Review of Systems: Denies chest pain, palpitation. Physical Examination: Lungs: Clear to auscultation bilaterally. Heart: S1, S2. 2/6 systolic murmur, left lower sternal border. Irregularly irregular. Abdomen: Soft, nontender. Extremities: No edema. Laboratory Data: BUN 45, creatinine 3, GFR 17, calcium 7.3, phosphorus 4.5, sodium 141. Magnesium 2 .3. Serum protein electrophoresis is pending. TSH is 50. Impression And Plan: 1. Acute kidney injury secondary to vancomycin toxicity, nonoliguric urine output. The patient has m arginal acidosis, and plan is to monitor and start sodium bicarbonate according to lab results. Ther e is no uremic symptomatology. The patient does not have hyperkalemia. Continue to monitor renal fu nction and start IV fluids according to volemia status. The patient has history of hypokalemia and i t was supplemented. Potassium level has improved. 2. Hyponatremia. Continue IV fluids. 3. Anemia of chronic disease, stable. 4. Urinary tract infection with methicillin-resistant Staphylococcus aureus. Continue treatment. 5. Hypertension. Avoid hypotensive episodes. Continue blood pressure medication. 6. Hypothyroidism, per Primary team. SAINYA/PETER Voice ID: [id number] Report ID: [id number]
[2024-04-08 05:40] LABS: Absolute Basophils 0.1 K/uL (0-0.5); Absolute Eosinophils 0.1 K/uL (0-0.5); Absolute Lymphocytes (CBC) 1.7 K/uL (0.7-4.9); Absolute Monocytes 0.6 K/uL (0.1-1.3); Absolute Neutrophil 3.6 K/uL (1.8-8.0); Basophils % 1.3 % (0-1.3); Eosinophils % 1.4 % (0-4.4); Hematocrit 26.2 % (36.0-45.0); Hemoglobin 8.7 g/dL (12.0-15.0); Lymphocytes % 28.2 % (15.3-44.8); MCH 24.8 pg (27.0-35.0); MCV 75.3 fL (80-100); MPV 7.9 fL (7.6-11.3); Monocytes % 9.8 % (3.3-12.3); Neutrophils % 59.3 % (41.7-73.7); Platelets 334 thou/uL (152-406); RBC Red Blood Cell Count 3.48 M/uL (3.86-4.86); Red Cell Distribution Width 17.3 % (12.1-15.2)
[2024-04-08 05:54] LABS: Anion Gap 9.6 mEq/L (5.0-15.0); Phosphorus 5.8 mg/dL (2.5-4.9); Potassium 3.6 mEq/L (3.5-5.1)
[2024-04-08] MEDS: POTASSIUM CL SA 10 MEQ TAB PO ONE (09:19)
--- NOTE | 2024-04-08 11:41 | P.PN ---
Date of Service: 04/08/24 Subjective Tolerating Liquids today Feel somewhat better than yesterday NO acute events overnight ROS 10 point ROS as noted above, otherwise negative Physical Exam General: AAOx3, NAD, afebrile HEENT: Atraumatic, Normocephalic Neck: Supple, 2+ carotid pulse no bruit Respiratory: Clear Bilateral breath sounds, on RA Cardiovascular: HR 80/RRR, Normal S1 S2 present Capillary refill: <2 Seconds Gastrointestinal: Normal active bowel sounds, Soft on palpation, Tender RUQ Musculoskeletal: No clubbing Integumentary: Skin breakdown (Chronic sacral wound) Neurological: Normal speech, Normal tone Vitals Reviewed Problem list Leukocytosis 2/2 Urinary tract infection associated with chronic Bang Acute cholecystitis EDGAR secondary to dehydration Anemia Chronic Sacral stage IV pressure ulcer and left ischial stage III pressure ulcer Suspected osteomylitis History of CVA History of arthritis Hypercholesterolemia Hypertension Hypothyroidism Kidney stone Osteoarthritis Plan Leukocytosis 2/2 Urinary tract infection associated with chronic Bang -WBC WNL -blood culture NGTD -urine culture: Methicillin-resistant Staphylococcus aureus sensitive to vancomycin -Vancomycin trough >45/26, Stop vancomycin -continue doxycycline and Merrem -Monitor urinary output -Bang catheter placed 04/02/24, chronic bang catheter Acute cholecystitis -Abdominal US reports "Sludge and stones within the gallbladder with wall thickening, concerning for acute cholecystitis." -Repeat CT abd/pelvis 04/07 shows some improvement -Clinically patient improving so far -Dr. Valdez following, considering outpatient management for gallbladder EDGAR secondary to dehydration metabolic acidosis -Nephrology following, recommendations appreciated -continue Sodium bicarb PO Anemia -H&H 9.4/28.8- stable -Monitor in a.m. lab -Transfuse as needed Chronic Sacral stage IV pressure ulcer and left ischial stage III pressure ulcer Suspected osteomylitis -Dr. Valdez following -continue doxycycline and merrem -Sacral stage IV pressure ulcer and Left Ischial stage III pressure ulcer- cleanse with vashe. Apply Santyl to wound bed, gauze, foam and medipore tape daily. -will need to discuss if patient will need prolonged IV abx prior to DC History of CVA History of arthritis Hypercholesterolemia Hypertension Hypothyroidism Kidney stone Osteoarthritis -Continue home medication -Supportive care DVT PPx heparin Full code LOS 2 to 3 days
[2024-04-08] MEDS: POTASSIUM 25 MEQ EFFERV TAB PO ONE (14:31)
[2024-04-08] MEDS: NA CHLORIDE 0.9% 1,000 ML IV SCH (14:32)
[2024-04-08 16:36] LABS: Complement C3 95 mg/dL (83-193)
[2024-04-09 05:23] LABS: Absolute Basophils 0.1 K/uL (0-0.5); Absolute Eosinophils 0.1 K/uL (0-0.5); Absolute Lymphocytes (CBC) 1.5 K/uL (0.7-4.9); Absolute Monocytes 0.5 K/uL (0.1-1.3); Eosinophils % 0.9 % (0-4.4); Hematocrit 26.7 % (36.0-45.0); Hemoglobin 8.7 g/dL (12.0-15.0); Lymphocytes % 24.1 % (15.3-44.8); MCH 24.7 pg (27.0-35.0); MCHC 32.6 g/dL (32.0-36.0); MCV 75.8 fL (80-100); MPV 7.7 fL (7.6-11.3); Monocytes % 8.1 % (3.3-12.3); Neutrophils % 65.9 % (41.7-73.7); Nucleated Red Blood Cells % 0.1 % (0-0); Platelets 338 thou/uL (152-406); RBC Red Blood Cell Count 3.52 M/uL (3.86-4.86); Red Cell Distribution Width 16.9 % (12.1-15.2)
[2024-04-09 05:38] LABS: Anion Gap 10.8 mEq/L (5.0-15.0); Magnesium 1.8 mg/dL (1.6-2.4); Phosphorus 5.3 mg/dL (2.5-4.9); Potassium 3.8 mEq/L (3.5-5.1)
[2024-04-09] MEDS: MAGNESIUM SULFATE 1 gm IVPB 1 GM/100 ML BAG IV ONE ×2 (06:23→13:20)
[2024-04-09] MEDS: POTASSIUM CL SA 10 MEQ TAB PO ONE (06:23)
[2024-04-09] MEDS: ACETAMINOPHEN 325 MG TABLET PO ONE (09:21)
[2024-04-09 12:48] LABS: Abnormal Protein Band 1 REPORT; Albumin, (SPE) 1.5 g/dL (3.8-4.8); Alpha-1-Globulins 0.3 g/dL (0.2-0.3); Alpha-2-Globulins 0.8 g/dL (0.5-0.9); Beta 1 Globulin 0.3 g/dL (0.4-0.6); Gamma Globulins 1.1 g/dL (0.8-1.7); INTERPRETATION REPORT; Total Protein 4.4 g/dL (6.1-8.1)
[2024-04-09] MEDS: POTASSIUM 25 MEQ EFFERV TAB PO ONE (13:20)
--- NOTE | 2024-04-09 16:25 | PN ---
Date of Progress Note: 04/09/2024 Subjective: The patient was admitted to the hospital with acute kidney injury secondary to GI loss. After hydration, kidney function has been improved significantly. The patient is tolerating diet currently. Physical Examination: Vital Signs: Blood pressure 131/78, pulse of 78. Chest: Clear to auscultation. Heart: S1, S2, regular. Abdomen: Soft, nontender. Extremities: No edema. Neurologic: Alert. No focality. Laboratory Data: Sodium 139; potassium 3.8; bicarb 23; BUN 52; creatinine 2.3, trending down; GFR up to 23; calcium 7.5; phosphorus 5.3; magnesium 1.8. WBC 6, hemoglobin 8.7. Current Medications: The patient on doxycycline, meropenem, Tylenol, sodium bicarb, IV fluid. Assessment And Plan: 1. Acute kidney injury secondary to prerenal, on the recovery, looked to me normal volume. I am going to go ahead and discontinue IV fluid. 2. Hypertension, controlled, optimal. Continue current treatment. 3. Hyponatremia secondary to depletional, resolved. 4. Anemia of chronic kidney disease, stable. 5. Urinary tract infection secondary to methicillin-resistant Staphylococcus aureus. Continue current antibiotic. We will follow up with primary. 6. Hypokalemia. We will supplement. 7. Hypomagnesemia. We will supplement. Time spent examining the patient [id number] reviewing data lab and an audiology placing order discussing the case with the patient discussing the case with the merchandise team manager including hospitalist and nursing staff more than 55-minute SURJIT/PETER Voice ID: [id number] Report ID: [id number] JADEN
--- NOTE | 2024-04-09 16:39 | PN ---
Date of Progress Note: 04/09/2024 Reason For Service: Acute cholecystitis. Subjective: The patient is doing better, starting to tolerate diet better. No fever. No shortness of breath. No nausea. She states she has had appetite back and she wants a siddiqui cheeseburger. I e xplained to her the importance of not doing that just because she is improving and her gallbladder is not given her major problem at this moment, still not the right way. Once the swelling goes down, amy isaac might still have to consider the possibility of cholecystectomy. If she improved and the swelling goes done in the next 2 weeks, we still may consider the possibility of an elective cholecystectomy, so diet is imperative to be the best she can and that hamburger is absolutely the incorrect way to go . Objective: Chest: Clear. Abdomen: Soft and depressible. No guarding or rebound. Mild epigastric tenderness. Extremities: Good capillary refill. Laboratory Data: CAT scan of the abdomen and pelvis interpreted by Dr. Leal as inflammatories around gallbladder has improved, less gallbladder distention and distal sigmoid colonic distention concernin g for proctocolitis, pleural effusion, probably osteomyelitis of the left ischium. Assessment: A 63-year-old patient with multiple problems, urinary tract infection, osteomyelitis, ac olga cholecystitis. She is improving from acute cholecystitis and if she control her diet, then we mi ght just find better conditions to perform the surgery, but she has to control her diet. In the mean time, she is dealing with although all the other issues that require antibiotics and require off-load ing and Dr. Perry is managing her osteomyelitis of the sacrum. She has been going to his office for that. Amy isaac continued with diet as tolerated. HM/MODL Voice ID: [id number] Report ID: [id number]
[2024-04-09 17:07] LABS: C-ANCA Anti-Proteinase 3 <1.0 AI (<1.0); P-ANCA Anti-Myeloperoxidase Ab <1.0 AI (<1.0)
[2024-04-09 18:33] LABS: Anti-Nuclear Antibody Screen Positive (Negative)
[2024-04-09 19:03] LABS: Anti-Nuclear Antibody Pattern REPORT
[2024-04-10 04:35] LABS: Absolute Eosinophils 0.1 K/uL (0-0.5); Absolute Lymphocytes (CBC) 1.8 K/uL (0.7-4.9); Absolute Monocytes 0.5 K/uL (0.1-1.3); Absolute Neutrophil 4.9 K/uL (1.8-8.0); Basophils % 0.7 % (0-1.3); Eosinophils % 1.9 % (0-4.4); Hematocrit 25.3 % (36.0-45.0); Hemoglobin 8.3 g/dL (12.0-15.0); Lymphocytes % 24.8 % (15.3-44.8); MCH 24.7 pg (27.0-35.0); MCHC 32.7 g/dL (32.0-36.0); MCV 75.6 fL (80-100); MPV 7.9 fL (7.6-11.3); Neutrophils % 65.6 % (41.7-73.7); Platelets 345 thou/uL (152-406); RBC Red Blood Cell Count 3.35 M/uL (3.86-4.86); Red Cell Distribution Width 17.2 % (12.1-15.2)
[2024-04-10 05:00] LABS: Magnesium 2.2 mg/dL (1.6-2.4); Phosphorus 4.9 mg/dL (2.5-4.9)
--- NOTE | 2024-04-10 10:28 | P.PN ---
Date of Service: 04/10/24 Subjective Tolerating Liquids today Feel somewhat better than yesterday NO acute events overnight ROS 10 point ROS as noted above, otherwise negative Physical Exam General: AAOx3, NAD, afebrile HEENT: Atraumatic, Normocephalic Neck: Supple, 2+ carotid pulse no bruit Respiratory: Clear Bilateral breath sounds, on RA Cardiovascular: HR 80/RRR, Normal S1 S2 present Capillary refill: <2 Seconds Gastrointestinal: Normal active bowel sounds, Soft on palpation, Tender RUQ Musculoskeletal: No clubbing Integumentary: Skin breakdown (Chronic sacral wound) Neurological: Normal speech, Normal tone Vitals Reviewed Problem list Leukocytosis 2/2 Urinary tract infection associated with chronic Bang Acute cholecystitis/proctocolitis EDGAR secondary to dehydration Anemia Chronic Sacral stage IV pressure ulcer and left ischial stage III pressure ulcer Suspected osteomylitis History of CVA History of arthritis Hypercholesterolemia Hypertension Hypothyroidism Kidney stone Osteoarthritis Plan Leukocytosis 2/2 Urinary tract infection associated with chronic Bang -WBC WNL -blood culture NGTD -urine culture: Methicillin-resistant Staphylococcus aureus sensitive to vancomycin -Vancomycin trough >45/26, Stop vancomycin -continue doxycycline and Merrem -Monitor urinary output -Bang catheter placed 04/02/24, chronic bang catheter Acute cholecystitis/proctocolitis -Abdominal US reports "Sludge and stones within the gallbladder with wall thickening, concerning for acute cholecystitis." -Repeat CT abd/pelvis 04/07 shows some improvement -Clinically patient improving so far -Dr. Valdez following, considering outpatient management for gallbladder -Continue merrem EDGAR secondary to dehydration metabolic acidosis -Nephrology following, recommendations appreciated -continue Sodium bicarb PO Anemia -H&H 9.4/28.8- stable -Monitor in a.m. lab -Transfuse as needed Chronic Sacral stage IV pressure ulcer and left ischial stage III pressure ulcer Suspected osteomylitis -Dr. Valdez following -continue doxycycline and merrem -Sacral stage IV pressure ulcer and Left Ischial stage III pressure ulcer- cleanse with vashe. Apply Santyl to wound bed, gauze, foam and medipore tape daily. -ID consulted for possble sacral osteo History of CVA History of arthritis Hypercholesterolemia Hypertension Hypothyroidism Kidney stone Osteoarthritis -Continue home medication -Supportive care DVT PPx heparin Full code LOS 2 to 3 days
--- NOTE | 2024-04-10 12:30 | PN ---
Date of Progress Note: 04/10/2024 Subjective: The patient was admitted to the hospital with acute kidney injury secondary to toxic ATN, poor perfusion ATN. The patient on the recovery. We discontinued IV fluid yesterday. Kidney function continued to improve. Objective: Vital Signs: Blood pressure 129/84, pulse of 85, afebrile. The patient had good urine output of 1800. Chest: Clear to auscultation. Heart: S1, S2 regular. Abdomen: Soft, nontender. Extremities: Trace edema. Neurologic: Alert, oriented. Laboratory Data: WBC 7.4, hemoglobin 8.3, sodium 141, potassium 4, bicarb 24, BUN 53, creatinine 1.9, GFR 28, continued to improve. Calcium 7.6, phosphorus 4.9, magnesium 2.2. Current Medications: The patient on include: 1. Doxycycline. 2. Meropenem. 3. Tylenol. 4. Sodium bicarb 650 b.i.d. 5. Magnesium oxide. 6. KCl. Assessment And Plan: 1. Acute kidney injury secondary to toxic ATN, poor perfusion ATN, normal volume, off IV fluid. We will keep holding IV fluid. We will continue to monitor. 2. Hypertension, controlled, optimal. 3. Hyponatremia secondary to depletional, resolved. 4. Anemia of chronic kidney disease, stable. No need for transfusion. 5. Urinary tract infection methicillin-resistant Staphylococcus aureus. Follow up with ID. Continue current antibiotic. The patient cleared from the Renal standpoint for discharge planning. Time spent examining the patient [id number] reviewing data lab and an audiology placing order discussing the case with the patient discussing the case with the team leader/research psychologist including hospitalist and nursing staff more than 55-minute BRO Voice ID: [id number] Report ID: [id number] JADEN
[2024-04-10] MEDS: LACTOBACILLUS/ACIDOPHILUS TAB PO SCH (20:19)
--- NOTE | 2024-04-10 20:21 | CON ---
History Of Present Illness: This is a 63-year-old female, I was consulted for sacral osteomyelitis o n CT scan identified with stage IV sacral ulcer. The patient was admitted on April 02, 2024, alyce curry in with significant past medical history of arthritis, chronic sacral pressure ulcer, hypercholeste rolemia, hypertension, hypothyroidism, kidney stone, osteoarthritis, coming in with decreased urine o utput. The patient is currently being treated with meropenem and doxycycline. Her culture grew MRSA in the urine and blood cultures were negative. Wound cultures are not performed. CT chest, abdomen and pelvis shows the patient has pronounced inflammatory changes central around the gallbladder with numerous gallstones present concern of acute cholecystitis, progressive decubitus ulcer with underly ing osseous changes involving the caudal most aspect of the sacral and the left ischial tuberosity as described above concerning osteomyelitis. Past Medical History: As per HPI. Social History: Nonsmoker, nondrinker. Family History: Noncontributory. Medications: Meropenem and doxycycline. See MARs for other medications. Allergies: AMPICILLIN, AZITHROMYCIN, LISINOPRIL, PENICILLIN, SHELLFISH. Review of Systems: A 10-point review was performed. Physical Examination: General: This is a 63-year-old female, lying in bed secondary to history of rheumatoid arthritis, be ing bed bound for 2 years. Vital Signs: Temperature 98, pulse 74, respiration 20, blood pressure 130/61. HEENT: Unremarkable. Neck: Supple. Lungs: Basal crackles. Heart: S1, S2. Regular. Abdomen: Soft, nontender. Bowel sounds present. Extremities: No trace edema and sacral area showed large wound with necrotic tissue. Laboratory Data: Shows WBC 7.4, hemoglobin 8.3, platelets 345. Chemistry shows BUN of 53, creatinin e 1.9, improved from 3.03. Urine cultures are growing MRSA on April 02. Assessment And Plan: Sacral osteomyelitis with stage IV ulcer secondary to being bed-bound for 2 yea rs secondary to rheumatoid arthritis, anemia of chronic disease, renal insufficiency. Consider debri migue. The patient also has diarrhea, consider getting stool for C diff and starting probiotic and monitoring signs of infection with WBC and fever trends. We will follow the patient closely. NF/MODL Voice ID: [id number] Report ID: [id number]
[2024-04-10] MEDS: LINEZOLID 600 MG IVPB 600 MG/300 ML BAG IV SCH (20:23)
--- NOTE | 2024-04-10 20:28 | RAD REPORT ---
EXAMINATION: ONE VIEW CHEST XR CLINICAL INDICATION: Female, 63 years old.,picc line placement TECHNIQUE: Frontal chest projection is submitted. Examination is limited by patient positioning and t echnique. COMPARISON: 04/02/2024 FINDINGS: Right arm PICC in place with catheter tip at the level of the distal SVC. The lungs are grossly clear although suboptimal inspiratory effort somewhat limits evaluation. No pneumothorax or sizable effusion. The heart is normal in size. Mediastinal contours are unremarkable. IMPRESSION: Satisfactory right arm PICC positioning. No acute intrathoracic abnormalities.
[2024-04-10 22:56] LABS: Immunofixation Electrophoresis Normal pattern.
[2024-04-11 05:14] LABS: Hematocrit 23.3 % (36.0-45.0); Hemoglobin 7.8 g/dL (12.0-15.0); MCHC 33.2 g/dL (32.0-36.0); MCV 75.2 fL (80-100); MPV 7.7 fL (7.6-11.3); Platelets 306 thou/uL (152-406); Red Cell Distribution Width 17.1 % (12.1-15.2)
[2024-04-11 05:33] LABS: Anion Gap 8.4 mEq/L (5.0-15.0); Potassium 3.4 mEq/L (3.5-5.1)
[2024-04-11] MEDS: POTASSIUM CL SA 10 MEQ TAB PO ONE (09:05)
--- NOTE | 2024-04-11 10:12 | P.PN ---
Date of Service: 04/11/24 Subjective Tolerating Liquids today NO acute events overnight Abd pain improving ROS 10 point ROS as noted above, otherwise negative Physical Exam General: AAOx3, NAD, afebrile HEENT: Atraumatic, Normocephalic Neck: Supple, 2+ carotid pulse no bruit Respiratory: Clear Bilateral breath sounds, on RA Cardiovascular: HR 80/RRR, Normal S1 S2 present Capillary refill: <2 Seconds Gastrointestinal: Normal active bowel sounds, Soft on palpation, Tender RUQ Musculoskeletal: No clubbing Integumentary: Skin breakdown (Chronic sacral wound) Neurological: Normal speech, Normal tone Vitals Reviewed Problem list Leukocytosis 2/2 Urinary tract infection associated with chronic Bang Acute cholecystitis/proctocolitis EDGAR secondary to dehydration Anemia Chronic Sacral stage IV pressure ulcer and left ischial stage III pressure ulcer Suspected osteomylitis History of CVA History of arthritis Hypercholesterolemia Hypertension Hypothyroidism Kidney stone Osteoarthritis Plan Leukocytosis 2/2 Urinary tract infection associated with chronic Bang -WBC WNL -blood culture NGTD -urine culture: Methicillin-resistant Staphylococcus aureus sensitive to vancomycin -Vancomycin trough >45/26, Stop vancomycin -continue doxycycline and Merrem -Switched doxy to zyvox per ID on 04/09 -Monitor urinary output -Bang catheter placed 04/02/24, chronic bang catheter -ID rec 6 weeks IV abx, LTAC for aggressive wound care, IV abx, need for re evaluation by surgery Acute cholecystitis/proctocolitis -Abdominal US reports "Sludge and stones within the gallbladder with wall thickening, concerning for acute cholecystitis." -Repeat CT abd/pelvis 04/07 shows some improvement -Clinically patient improving so far -Continue merrem -General surgery recommending medical management for now EDGAR secondary to dehydration metabolic acidosis -Nephrology following, recommendations appreciated -continue Sodium bicarb PO Anemia -H&H 9.4/28.8- stable -Monitor in a.m. lab -Transfuse as needed Chronic Sacral stage IV pressure ulcer and left ischial stage III pressure ulcer Suspected osteomylitis -Dr. Valdez following -continue zyvox and merrem -Sacral stage IV pressure ulcer and Left Ischial stage III pressure ulcer- cleanse with vashe. Apply Santyl to wound bed, gauze, foam and medipore tape daily. -ID consulted for sacral osteo -Rec LTAC, IV abx, possible hyperbarics History of CVA History of arthritis Hypercholesterolemia Hypertension Hypothyroidism Kidney stone Osteoarthritis -Continue home medication -Supportive care DVT PPx heparin Full code LOS 2 to 3 days <Martell Mejía - Last Filed: 04/11/24 10:10> Chart has been reviewed. Events of the last 24 hours have been noted. Case discussed with LEANN. I performed a substantial part of the MDM during this patient's care today. I personally made or approved the documented management plan and acknowledge its risk of complications. I agree with the findings and documentation provided in the LEANN's notes Awaiting placement at this time. Patient is trying to get to [facility]. Patient will need wound care, IV antibiotic therapy, surgical debridement. Patient will need H&H monitored. Patient will need aggressive care but her long-term prognosis is poor as she remains bedbound. Will get therapy to start working with her and at least get her out of bed into a wheelchair as she does at home. <Cooper Boyer - Last Filed: 04/13/24 06:56>
[2024-04-11 10:36] LABS: STOOL CONSISTENCY Liquid/Semi-Solid
[2024-04-11 10:37] LABS: C.diff Antigen/Toxin Ag neg : Tox neg (NEG : NEG); CDIFF INTERNAL NEG CONTROL White Background (WHITE BKGD)
[2024-04-11] MEDS: ENSURE ENLIVE 237 ML CAN PO SCH (20:34)
[2024-04-11] MEDS: Mupirocin NASAL 2 APPL/1 GM TUBE NAS SCH (20:35)
--- NOTE | 2024-04-12 00:22 | PN ---
Date of Progress Note: 04/11/2024 Subjective: The patient was admitted to the hospital. She was found to have acute kidney injury due to toxic ATN, hypoperfusion. IV fluids were discontinued. The patient tolerates p.o. intake. Renal function gradually is improving. The patient has hypertension controlled. Review of Systems: Denies chest pain, palpitation. Physical Examination: Lungs: Clear to auscultation bilaterally. Heart: S1, S2. Abdomen: Soft, benign. Extremities: Minimal edema. Impression And Plan: 1. Acute kidney injury secondary to toxic acute tubular necrosis, hypoperfusion. The patient responded to IV fluids. Continue p.o. hydration. Avoid nonsteroidal anti-inflammatory medication. 2. Hypertension, controlled. 3. Hyponatremia secondary to hypovolemic condition, resolved. 4. Anemia due to chronic kidney disease. Monitor hemoglobin level. 5. Urinary tract infection, methicillin-resistant Staphylococcus aureus. The patient will continue antibiotics. ID is following. MIGUEL Voice ID: [id number] Report ID: [id number] [facility]ENTER[facility]
[2024-04-12 07:39] LABS: Hematocrit 25.3 % (36.0-45.0); Hemoglobin 8.2 g/dL (12.0-15.0); MCH 24.8 pg (27.0-35.0); MCHC 32.6 g/dL (32.0-36.0); MCV 76.3 fL (80-100); MPV 7.5 fL (7.6-11.3); Platelets 322 thou/uL (152-406); RBC Red Blood Cell Count 3.31 M/uL (3.86-4.86)
[2024-04-12 07:54] LABS: Anion Gap 8.6 mEq/L (5.0-15.0); Potassium 3.6 mEq/L (3.5-5.1)
--- NOTE | 2024-04-12 13:23 | P.PN ---
Date of Service: 04/12/24 Subjective Tolerating full liquids NO acute events overnight Abd pain improving, had diarrhea the last couple days but now improved C.diff negative ROS 10 point ROS as noted above, otherwise negative Physical Exam General: AAOx3, NAD, afebrile HEENT: Atraumatic, Normocephalic Neck: Supple, 2+ carotid pulse no bruit Respiratory: Clear Bilateral breath sounds, on RA Cardiovascular: HR 80/RRR, Normal S1 S2 present Capillary refill: <2 Seconds Gastrointestinal: Normal active bowel sounds, Soft on palpation, mildly tender RUQ Musculoskeletal: No clubbing Integumentary: Skin breakdown (Chronic sacral wound) Neurological: Normal speech, Normal tone Vitals Reviewed Problem list Leukocytosis 2/2 Urinary tract infection associated with chronic Bang Acute cholecystitis/proctocolitis EDGAR secondary to dehydration Anemia Chronic Sacral stage IV pressure ulcer and left ischial stage III pressure ulcer Suspected osteomylitis History of CVA History of arthritis Hypercholesterolemia Hypertension Hypothyroidism Kidney stone Osteoarthritis Plan Leukocytosis 2/2 Urinary tract infection associated with chronic Bang -WBC WNL -blood culture NGTD -urine culture: Methicillin-resistant Staphylococcus aureus sensitive to vancomycin -Vancomycin trough >45/26, Stop vancomycin -Switched doxy to zyvox per ID on 04/09 -Bang catheter placed 04/02/24, chronic bang catheter -ID rec 6 weeks IV abx, LTAC for aggressive wound care, IV abx, need for re evaluation by surgery Acute cholecystitis/proctocolitis -Abdominal US reports "Sludge and stones within the gallbladder with wall t hickening, concerning for acute cholecystitis." -Repeat CT abd/pelvis 04/07 shows some improvement -Clinically patient improving so far -Continue merrem -General surgery recommending medical management for now EDGAR secondary to dehydration metabolic acidosis -Nephrology following, recommendations appreciated -continue Sodium bicarb PO Anemia -Monitor in a.m. lab Chronic Sacral stage IV pressure ulcer and left ischial stage III pressure ulcer Suspected osteomylitis -Dr. Valdez following -continue zyvox and merrem -Sacral stage IV pressure ulcer and Left Ischial stage III pressure ulcer- cleanse with vashe. Apply Santyl to wound bed, gauze, foam and medipore tape daily. -ID consulted for sacral osteo -Rec LTAC, IV abx, possible hyperbarics History of CVA History of arthritis Hypercholesterolemia Hypertension Hypothyroidism Kidney stone Osteoarthritis -Continue home medication -Supportive care DVT PPx heparin Full code LOS 2 to 3 days <Martell Mejía - Last Filed: 04/12/24 13:21> Chart has been reviewed. Events of the last 24 hours have been noted. Case discussed with LEANN. I performed a substantial part of the MDM during this patient's care today. I personally made or approved the documented management plan and acknowledge its risk of complications. I agree with the findings and documentation provided in the LEANN's notes Awaiting placement at this time. Patient is trying to get to [facility]. Patient will need wound care, IV antibiotic therapy, surgical debridement. Patient will need H&H monitored. Patient will need aggressive care but her long-term prognosis is poor as she remains bedbound. Will get therapy to start working with her and at least get her out of bed into a wheelchair as she does at home. <Cooper Boyer - Last Filed: 04/13/24 06:56>
[2024-04-12] MEDS: POTASSIUM CL SA 10 MEQ TAB PO ONE (20:04)
--- NOTE | 2024-04-13 04:54 | PN ---
Date of Progress Note: 04/12/2024 Chief Complaint: Acute kidney injury due to toxic ATN, hypoperfusion. IV fluids were used to treat acute kidney injury. Renal function is gradually improving. Review of Systems: Denies chest pain, palpitation. Physical Examination: Lungs: Clear to auscultation bilaterally. Heart: S1, S2. Abdomen: Soft, benign. Extremities: No edema. Impression And Plan: 1. Acute kidney injury secondary to acute tubular necrosis, nephrotoxic. Continue oral hydration. 2. Hypertension, controlled. 3. Hyponatremia secondary to hypovolemic condition, resolved. 4. Anemia due to kidney disease. Monitor hemoglobin level. 5. Urinary tract infection, methicillin-resistant Staphylococcus aureus. The patient will continue antibiotics . EB/MODL Voice ID: [id number] Report ID: [id number] MTDD
[2024-04-13 05:47] LABS: Hematocrit 23.5 % (36.0-45.0); Hemoglobin 7.6 g/dL (12.0-15.0); MCH 24.6 pg (27.0-35.0); MCHC 32.5 g/dL (32.0-36.0); MCV 75.7 fL (80-100); MPV 7.8 fL (7.6-11.3); Platelets 277 thou/uL (152-406); Red Cell Distribution Width 17.8 % (12.1-15.2)
[2024-04-13 06:03] LABS: Anion Gap 7.6 mEq/L (5.0-15.0); Potassium 3.6 mEq/L (3.5-5.1)
[2024-04-13] MEDS: POTASSIUM CL SA 10 MEQ TAB PO ONE (09:43)
--- NOTE | 2024-04-13 14:02 | P.PN ---
Date of Service: 04/13/24 Subjective: no acute events overnight feeling better each day awaiting LTAC ROS: 10 point ROS as noted above, otherwise negative Physical Exam: GEN: Alert, oriented, NAD CV: Regular rate and rhythm, no edema Pulm: Nonlabored respirations on room air, clear bilaterally ABD: soft, mild tenderness in RUQ, nondistended Neuro: Normal speech, normal affect Problem List: UTI associated with chronic Patton Chronic Sacral stage IV pressure ulcer and left ischial stage III pressure ulcer Suspected osteomylitis Acute cholecystitis/proctocolitis EDGAR secondary to dehydration Anemia, unknown etiology History of CVA History of arthritis Hypercholesterolemia Hypertension Hypothyroidism Kidney stone Osteoarthritis UTI associated with chronic Patton leukocytosis resolved. blood culture (04/02): no growth Urine cx (04/02): MRSA Doxycycline switched to zyvox per ID recs (04/09) Patton replaced 04/02/24 ID recommending 6 weeks of IV antibiotics. Feels patient would benefit from hyperbarics. Would benefit form LTAC for aggressive wound care, hyperbarics, IV abx, need for re evaluation by surgery pending approval Chronic Sacral stage IV pressure ulcer and left ischial stage III pressure ulcer Suspected osteomylitis Dr. Valdez, general surgeon is following continue IV zyvox and merrem (04/04-) Continue local wound care: cleanse with vashe. Apply Santyl to wound bed, gauze, foam and medipore tape daily. ID consulted given suspected sacral osteomyelitis ID recommending 6 weeks of IV antibiotics. Feels patient would benefit from hyperbarics. Pending LTAC approval Acute cholecystitis/proctocolitis Abdominal u/s (04/02): sludge and stones within the gallbladder with wall thickening, concerning for acute cholecystitis. Repeat CT abd/pelvis 04/07 shows some improvement Clinically improving continue above abx Dr. valdez, general surgeon recommending medical management for now, and elective cholecystectomy in near future pain control EDGAR secondary to dehydration metabolic acidosis Nephrology following continue Sodium bicarb PO 650 mg BID continue to monitor renal function Anemia, unknown etiology No obvious bleeds or black tarry stools. Continue to monitor. hgb 8.2 -> 7.6 History of CVA History of arthritis Hypercholesterolemia Hypertension Hypothyroidism Kidney stone Osteoarthritis continue home meds as appropriate Code: Full Dispo: Pending LTAC approval Time Spent Managing Pts Care (In Minutes):45
--- NOTE | 2024-04-13 22:40 | PN ---
Date of Progress Note: 04/13/2024 Chief Complaint: Acute kidney injury due to toxic ATN, hypoperfusion. Subjective: IV fluids were discontinued when renal function has improved. Renal function has overal l improved. The patient has nonoliguric urine output. Review of Systems: Denies chest pain, palpitations. Physical Examination: Lungs: Clear to auscultation bilaterally. Heart: S1, S2. Abdomen: Soft, benign. Extremities: No edema. Impression And Plan: 1. Acute kidney injury secondary to acute tubular necrosis. Continue current treatment. 2. Hypertension, controlled. 3. Hyponatremia secondary to hypovolemic condition, resolved. 4. Anemia due to chronic kidney disease. Monitor hemoglobin level. 5. Urinary tract infection. Methicillin-resistant Staphylococcus aureus. The patient will continue antibiotics. The patient will require wound care. She has lower back ulcer. SANIYA/MODJasiel Voice ID: [id number] Report ID: [id number]
[2024-04-14 06:18] LABS: Hematocrit 24.7 % (36.0-45.0); Hemoglobin 8.1 g/dL (12.0-15.0); MCH 25.2 pg (27.0-35.0); MCHC 32.8 g/dL (32.0-36.0); MCV 76.6 fL (80-100); MPV 7.7 fL (7.6-11.3); Platelets 277 thou/uL (152-406); RBC Red Blood Cell Count 3.22 M/uL (3.86-4.86); Red Cell Distribution Width 18.1 % (12.1-15.2)
[2024-04-14 06:34] LABS: Anion Gap 6.4 mEq/L (5.0-15.0); Potassium 3.4 mEq/L (3.5-5.1)
[2024-04-14] MEDS: POTASSIUM CL SA 10 MEQ TAB PO ONE (09:18)
--- NOTE | 2024-04-14 12:49 | P.PN ---
Date of Service: 04/14/24 Subjective: no acute events overnight feeling better each day awaiting LTAC ROS: 10 point ROS as noted above, otherwise negative Physical Exam: GEN: Alert, oriented, NAD CV: Regular rate and rhythm, no edema Pulm: Nonlabored respirations on room air, clear bilaterally ABD: soft, mild tenderness in RUQ, nondistended Neuro: Normal speech, normal affect Patton replaced 04/12/24 Problem List: UTI associated with chronic Patton Chronic Sacral stage IV pressure ulcer and left ischial stage III pressure ulcer Suspected osteomylitis Acute cholecystitis/proctocolitis EDGAR secondary to dehydration Anemia, unknown etiology History of CVA History of arthritis Hypercholesterolemia Hypertension Hypothyroidism Kidney stone Osteoarthritis UTI associated with chronic Patton leukocytosis resolved. blood culture (04/02): no growth Urine cx (04/02): MRSA Doxycycline switched to zyvox per ID recs (04/09) Patton replaced 04/12/24 ID recommending 6 weeks of IV antibiotics. Feels patient would benefit from hyperbarics. Would benefit form LTAC for aggressive wound care, hyperbarics, IV abx, need for re evaluation by surgery pending approval Chronic Sacral stage IV pressure ulcer and left ischial stage III pressure ulcer Suspected osteomylitis Dr. Valdez, general surgeon is following continue IV zyvox and merrem (04/04-) Continue local wound care: cleanse with vashe. Apply Santyl to wound bed, gauze, foam and medipore tape daily. ID consulted given suspected sacral osteomyelitis ID recommending 6 weeks of IV antibiotics. Feels patient would benefit from hyperbarics. Pending LTAC approval Acute cholecystitis/proctocolitis Abdominal u/s (04/02): sludge and stones within the gallbladder with wall thickening, concerning for acute cholecystitis. Repeat CT abd/pelvis 04/07 shows some improvement Clinically improving continue above abx Dr. valdez, general surgeon recommending medical management for now, and elective cholecystectomy in near future pain control EDGAR secondary to dehydration metabolic acidosis Nephrology following continue Sodium bicarb PO 650 mg BID continue to monitor renal function Anemia, unknown etiology No obvious bleeds or black tarry stools. Continue to monitor. hgb stable. History of CVA History of arthritis Hypercholesterolemia Hypertension Hypothyroidism Kidney stone Osteoarthritis continue home meds as appropriate Code: Full Dispo: Pending LTAC approval Time Spent Managing Pts Care (In Minutes):45
--- NOTE | 2024-04-14 18:19 | PN ---
Subjective: The patient lying in bed. No new acute event. Chart reviewed. Possible transfer to [facility], depending on her insurance approval. Objective: Vital Signs: Temperature 97, pulse 78, respirations 16, blood pressure 102/62. Lungs: Basal crackles. Heart: S1, S2. Regular. Abdomen: Soft, nontender. Bowel sounds present. Extremities: Trace edema. Laboratory Data: Shows WBC 10, hemoglobin 8, platelets 277. Chemistry shows BUN of 36, creatinine 0 .7. Urine culture: MRSA. Blood cultures are negative. Assessment And Plan: Urosepsis secondary to methicillin-resistant Staphylococcus aureus. Continue Z yvox and meropenem. To give broad spectrum coverage for sacral osteomyelitis and stage IV ulcer. I agree with long-term acute care for possible hyperbaric treatment with debridement and daily wound ca re. We will follow the patient as needed. NF/MODL Voice ID: [id number] Report ID: [id number]
--- NOTE | 2024-04-14 22:15 | PN ---
Date of Progress Note: 04/14/2024 Chief Complaint: Acute kidney injury due to toxic ATN and renal hypoperfusion. Subjective: The patient was on IV fluids. Renal function has improved. Urine output remains nonoli guric. Review of Systems: Denies chest pain, palpitation. Physical Examination: Lungs: Clear to auscultation bilaterally. Heart: S1, S2. Abdomen: Soft, benign. Extremities: No edema. Impression And Plan: 1. Acute kidney injury secondary to acute tubular necrosis. Continue current treatment with p.o. hyd ration. 2. Hypertension, controlled. Monitor blood pressure. Continue current blood pressure medication. 3. Hyponatremia secondary to hypovolemic condition, resolved. 4. Anemia due to chronic kidney disease. Monitor hemoglobin level. 5. Urinary tract infection. Methicillin-resistant Staphylococcus aureus. The patient is on antibiot ic. The patient will require wound care. She has lower back ulcer. EB/MODL Voice ID: [id number] Report ID: [id number]
[2024-04-15 06:21] LABS: Hematocrit 23.4 % (36.0-45.0); Hemoglobin 7.6 g/dL (12.0-15.0); MCH 24.9 pg (27.0-35.0); MCHC 32.5 g/dL (32.0-36.0); MCV 76.8 fL (80-100); MPV 7.9 fL (7.6-11.3); Platelets 256 thou/uL (152-406); RBC Red Blood Cell Count 3.05 M/uL (3.86-4.86); Red Cell Distribution Width 17.9 % (12.1-15.2)
[2024-04-15 06:22] LABS: Anion Gap 6.9 mEq/L (5.0-15.0); Potassium 3.9 mEq/L (3.5-5.1)
--- NOTE | 2024-04-15 14:10 | PN ---
Subjective: The patient's insurance company was contacted regarding transfer to long-term acute care , Dr. Colbert. Case was reviewed. As per her, she is going to overview the case and get back to the [employer]. The patient denies any headache, nausea, vomiting, chest pain, abdominal pain, consti pation, or diarrhea. Objective: Vital Signs: Temperature 97, pulse 77, respirations 16, blood pressure 123/79. Lungs: Basal crackles. Heart: S1, S2. Regular. Abdomen: Soft, nontender. Bowel sounds present. Extremity: Trace edema. Examination of sacral coccyx region shows 4 x 7 x 1.5 sacral coccyx wound noted with 100% granulation tissue. Left ischial 6 x 3 x 1 cm with 100% granulation tissue. Perineal wound 2.5 x 2 cm also not ed. Assessment And Plan: Sacral coccyx stage IV wound, slowly improving with osteomyelitis. Left ischia l stage III wound. We will recommend Medihoney with alginate to the sacral coccyx and left ischial w ound. Perineal wound to apply barrier cream. Continue supportive care and wound care. Continue cur rent treatment with Zyvox and meropenem. Anemia of chronic disease. Moderate protein-calorie malnourishment. Continue current treatment and antibiotics and monitor at [facility] 2 times a week with blood, CBC and CMP. Consider getting hyperbaric treatment for osteomyelitis . We will follow the patient as needed. NF/MODL Voice ID: [id number] Report ID: [id number]
--- NOTE | 2024-04-15 18:15 | P.PN ---
Subjective Date of Service: 04/15/24 Chief Complaint: Urinary tract infection Patient has no new complaint. No recorded fever. She is tolerating diet. Physical Examination - Vital Signs Temperature: 98 F Blood Pressure: 122/77 Pulse: 74 Respirations: 15 Pulse Ox (%): 99 Assessment And Plan - Plan Physical Exam: GEN: Alert, oriented x 4, NAD CV: Regular rate and rhythm, no edema Pulm: Nonlabored respirations on room air, clear bilaterally ABD: soft, mild tenderness in RUQ, nondistended Neuro: Normal speech, normal affect Patton replaced 04/12/24 Skin: Stage IV sacral decubitus ulcer, stage III ischial ulcer. Problem List: UTI associated with chronic Patton Chronic Sacral stage IV pressure ulcer and left ischial stage III pressure ulcer Suspected osteomylitis Acute cholecystitis/proctocolitis EDGAR secondary to dehydration Anemia, unknown etiology History of CVA History of arthritis Hypercholesterolemia Hypertension Hypothyroidism Kidney stone Osteoarthritis Plan: UTI associated with chronic Patton leukocytosis resolved. blood culture (04/02): no growth Urine cx (04/02): MRSA Doxycycline switched to zyvox per ID recs (04/09) Patton replaced 04/12/24 ID recommending 6 weeks of IV antibiotics. Feels patient would benefit from hyperbarics. Would benefit form LTAC for aggressive wound care, hyperbarics, IV abx, need for re evaluation by surgery pending approval Chronic Sacral stage IV pressure ulcer and left ischial stage III pressure ulcer Suspected osteomylitis Dr. Valdez, general surgeon is following continue IV zyvox and merrem (04/04-) Continue local wound care: cleanse with vashe. Apply Santyl to wound bed, gauze, foam and medipore tape daily. ID consulted given suspected sacral osteomyelitis ID recommending 6 weeks of IV antibiotics. Feels patient would benefit from hyperbarics. Pending LTAC approval Acute cholecystitis/proctocolitis Abdominal u/s (04/02): sludge and stones within the gallbladder with wall thickening, concerning for acute cholecystitis. Repeat CT abd/pelvis 04/07 shows some improvement Clinically improving continue above abx Dr. valdez, general surgeon recommending medical management for now, and elective cholecystectomy in near future pain control EDGAR secondary to dehydration metabolic acidosis Nephrology following continue Sodium bicarb PO 650 mg BID continue to monitor renal function Anemia, unknown etiology No obvious bleeds or black tarry stools. Continue to monitor. hgb stable. History of CVA History of arthritis Hypercholesterolemia Hypertension Hypothyroidism Kidney stone Osteoarthritis continue home meds as appropriate 04/15 Patient is alert and oriented. EDGAR resolved. Bicarb replacement per nephrology. Continue current antibiotics. Patient slated for 6 weeks of IV antibiotics. He is currently on IV Zyvox and meropenem. Hemoglobin level fluctuates but overall stable. Diet as tolerated Awaiting insurance authorization for LTAC. Code: Full Dispo: Pending LTAC approval
--- NOTE | 2024-04-15 23:56 | PN ---
Date of Progress Note: 04/15/2024 Chief Complaint: Acute kidney injury due to ATN and renal hypoperfusion. Subjective: The patient completed IV fluids. Renal function has improved. The patient denies PND, orthopnea. Physical Examination: Lungs: Clear to auscultation bilaterally. Heart: S1, S2. Abdomen: Soft. Extremities: No edema. Impression And Plan: 1. Acute kidney injury secondary to acute tubular necrosis. Continue p.o. hydration. The patient to lerates p.o. intake. 2. Hypertension, controlled. Monitor blood pressure. 3. Hyponatremia secondary to hypovolemic condition, resolved. 4. Anemia due to chronic kidney disease. Monitor hemoglobin level. 5. Urinary tract infection. Methicillin-resistant staphylococcal infection. Lower back nonhealing w ound. The patient is followed by Infectious Disease. SANIYA/MODL Voice ID: [id number] Report ID: [id number]
[2024-04-16 06:06] LABS: MCH 24.7 pg (27.0-35.0); MCHC 32.1 g/dL (32.0-36.0); MCV 76.9 fL (80-100); Platelets 281 thou/uL (152-406); RBC Red Blood Cell Count 3.25 M/uL (3.86-4.86); Red Cell Distribution Width 17.7 % (12.1-15.2)
[2024-04-16 06:23] LABS: Anion Gap 7.6 mEq/L (5.0-15.0); Potassium 3.6 mEq/L (3.5-5.1)
[2024-04-16] MEDS: MEDIHONEY 44 ML TOPICAL TUBE TOP SCH (09:30)
--- NOTE | 2024-04-16 14:29 | PN ---
Subjective: The patient lying in bed. Denies any headache, nausea, vomiting, chest pain, abdominal pain, constipation, or diarrhea. Objective: Vital Signs: Temperature 97.8, pulse 90, respirations 12, blood pressure 125/75. Lungs: Basal crackles. Heart: S1, S2. Regular. Abdomen: Soft, nontender. Bowel sounds present. Extremities: Trace edema. Laboratory Data: Shows WBC 8.3, hemoglobin 8, platelets are 281. Chemistry shows BUN of 27, creatin ine 0.6. Urine culture grew MRSA. Blood cultures are negative. Assessment And Plan: 1. Sacral coccyx stage IV pressure ulcer with osteomyelitis. 2. Left ischial stage III wound. 3. Perineal wound stage II. Continue Medihoney with alginate. Also recommend to apply barrier cream . Continue current antibiotics including Zyvox and meropenem. 4. Anemia of chronic disease. 5. Moderate protein-calorie malnourishment. 6. Monitor signs of infection with WBC and fever trends. NF/MODL Voice ID: [id number] Report ID: [id number]
[2024-04-16] MEDS: POTASSIUM CL 40 MEQ in NA CHLORIDE 0.9% 500 ML IV SCH (14:31)
--- NOTE | 2024-04-16 15:54 | PN ---
Date of Progress Note: 04/16/2024 Subjective: The patient was admitted to the hospital with acute kidney injury. The patient had hypokalemia and hypomagnesemia with acidosis, acute kidney injury secondary to vanc toxicity. After hydration, kidney function normalized. Physical Examination: Vital Signs: Blood pressure 127/80, pulse of 87. Chest: Clear to auscultation. Heart: S1, S2 regular. Abdomen: Soft, nontender. Extremities: No edema. Neurologic: Alert. No tremor. Laboratory Data: Sodium 139, potassium 3.6, bicarb 29, BUN 27, creatinine 0.6, calcium 7.8. Current Medications: The patient on include; linezolid, meropenem, sodium bicarb. Assessment And Plan: 1. Acute kidney injury secondary to vanc toxicity, recover, resolve. 2. Hypertension, controlled optimal. 3. Hypokalemia. I am going to go ahead and supplement. 4. Hypomagnesemia, resolved. 5. Acidosis, resolved. Discontinue oral bicarb. 6. Methicillin-sensitive Staphylococcus aureus. Continue current antibiotic. We will follow up with Primary. Time spent examining the patient [id number] reviewing data lab and an audiology placing order discussing the case with the patient discussing the case with the stationary steam engineer including hospitalist and nursing staff more than 55-minute BRO Voice ID: [id number] Report ID: [id number] MTDD
--- NOTE | 2024-04-16 16:56 | P.PN ---
Subjective Date of Service: 04/16/24 Chief Complaint: Urinary tract infection Patient has no new complaint. She has good oral intake No recorded fever. Physical Examination - Vital Signs Temperature: 97.8 F Blood Pressure: 125/75 Pulse: 91 Respirations: 12 Pulse Ox (%): 99 Assessment And Plan - Plan Physical Exam: GEN: Alert, oriented x 4, NAD CV: Regular rate and rhythm, no edema Pulm: Nonlabored respirations on room air, clear bilaterally ABD: soft, mild tenderness in RUQ, nondistended Neuro: Normal speech, normal affect Patton replaced 04/12/24 Skin: Stage IV sacral decubitus ulcer, stage III ischial ulcer. Problem List: UTI associated with chronic Patton Chronic Sacral stage IV pressure ulcer and left ischial stage III pressure ulcer Suspected osteomylitis Acute cholecystitis/proctocolitis EDGAR secondary to dehydration Anemia, unknown etiology History of CVA History of arthritis Hypercholesterolemia Hypertension Hypothyroidism Kidney stone Osteoarthritis Plan: UTI associated with chronic Patton leukocytosis resolved. blood culture (04/02): no growth Urine cx (04/02): MRSA Doxycycline switched to zyvox per ID recs (04/09) Patton replaced 04/12/24 ID recommending 6 weeks of IV antibiotics. Feels patient would benefit from hyperbarics. Would benefit form LTAC for aggressive wound care, hyperbarics, IV abx, need for re evaluation by surgery pending approval Chronic Sacral stage IV pressure ulcer and left ischial stage III pressure ulcer Suspected osteomylitis Dr. Valdez, general surgeon is following continue IV zyvox and merrem (04/04-) Continue local wound care: cleanse with vashe. Apply Santyl to wound bed, gauze, foam and medipore tape daily. ID consulted given suspected sacral osteomyelitis ID recommending 6 weeks of IV antibiotics. Feels patient would benefit from hyperbarics. Pending LTAC approval Acute cholecystitis/proctocolitis Abdominal u/s (04/02): sludge and stones within the gallbladder with wall thickening, concerning for acute cholecystitis. Repeat CT abd/pelvis 04/07 shows some improvement Clinically improving continue above abx Dr. valdez, general surgeon recommending medical management for now, and elective cholecystectomy in near future pain control EGDAR secondary to dehydration metabolic acidosis Nephrology following continue Sodium bicarb PO 650 mg BID continue to monitor renal function Anemia, unknown etiology No obvious bleeds or black tarry stools. Continue to monitor. hgb stable. History of CVA History of arthritis Hypercholesterolemia Hypertension Hypothyroidism Kidney stone Osteoarthritis continue home meds as appropriate 04/15 Patient is alert and oriented. EDGAR resolved. Bicarb replacement per nephrology. Continue current antibiotics. Patient slated for 6 weeks of IV antibiotics. He is currently on IV Zyvox and meropenem. Hemoglobin level fluctuates but overall stable. Diet as tolerated Awaiting insurance authorization for LTAC. 04/16 Continue IV Zyvox and meropenem Patient denied LTAC LTAC denial is being appealed. Infectious diseases following Wound care with Medihoney Continue PT Diet as tolerated Hemoglobin has been stable. Monitor CBC and transfuse as needed for hemoglobin less than 7. Code: Full Dispo: Pending LTAC approval
[2024-04-17] MEDS: Meropenem 1,000 MG in NA CHLORIDE 0.9% 100 ML IV SCH (17:08)
--- NOTE | 2024-04-17 18:22 | P.PN ---
Subjective Date of Service: 04/17/24 Chief Complaint: Urinary tract infection Patient has no new complaint. No issues overnight No recorded fever. Physical Examination - Vital Signs Temperature: 97.9 F Blood Pressure: 158/97 Pulse: 92 Respirations: 16 Pulse Ox (%): 98 Assessment And Plan - Plan Physical Exam: GEN: Alert, oriented x 4, NAD CV: Regular rate and rhythm, no edema Pulm: Nonlabored respirations on room air, clear bilaterally ABD: soft, nontender, nondistended Neuro: Normal speech, normal affect Patton catheter with clear urine Skin: Stage IV sacral decubitus ulcer, stage III ischial ulcer. Problem List: UTI associated with chronic Patton Chronic Sacral stage IV pressure ulcer and left ischial stage III pressure ulcer Suspected osteomylitis Acute cholecystitis/proctocolitis EDGAR secondary to dehydration Anemia, unknown etiology History of CVA History of arthritis Hypercholesterolemia Hypertension Hypothyroidism Kidney stone Osteoarthritis Plan: UTI associated with chronic Patton leukocytosis resolved. blood culture (04/02): no growth Urine cx (04/02): MRSA Doxycycline switched to zyvox per ID recs (04/09) Patton replaced 04/12/24 ID recommending 6 weeks of IV antibiotics. Feels patient would benefit from hyperbarics. Would benefit form LTAC for aggressive wound care, hyperbarics, IV abx, need for re evaluation by surgery pending approval Chronic Sacral stage IV pressure ulcer and left ischial stage III pressure ulcer Suspected osteomylitis Dr. Valdez, general surgeon is following continue IV zyvox and merrem (04/04-) Continue local wound care: cleanse with vashe. Apply Santyl to wound bed, gauze, foam and medipore tape daily. ID consulted given suspected sacral osteomyelitis ID recommending 6 weeks of IV antibiotics. Feels patient would benefit from hyperbarics. Pending LTAC approval Acute cholecystitis/proctocolitis Abdominal u/s (04/02): sludge and stones within the gallbladder with wall thickening, concerning for acute cholecystitis. Repeat CT abd/pelvis 04/07 shows some improvement Clinically improving continue above abx Dr. valdez, general surgeon recommending medical management for now, and elective cholecystectomy in near future pain control EDGAR secondary to dehydration metabolic acidosis Nephrology following continue Sodium bicarb PO 650 mg BID continue to monitor renal function Anemia, unknown etiology No obvious bleeds or black tarry stools. Continue to monitor. hgb stable. History of CVA History of arthritis Hypercholesterolemia Hypertension Hypothyroidism Kidney stone Osteoarthritis continue home meds as appropriate 04/15 Patient is alert and oriented. EDGAR resolved. Bicarb replacement per nephrology. Continue current antibiotics. Patient slated for 6 weeks of IV antibiotics. He is currently on IV Zyvox and meropenem. Hemoglobin level fluctuates but overall stable. Diet as tolerated Awaiting insurance authorization for LTAC. 04/16 Continue IV Zyvox and meropenem Patient denied LTAC LTAC denial is being appealed. Infectious diseases following Wound care with Medihoney Continue PT Diet as tolerated Hemoglobin has been stable. Monitor CBC and transfuse as needed for hemoglobin less than 7. 04/17 Continue current IV antibiotics. Local wound care with Medihoney Monitor CBC and transfuse as needed for hemoglobin less than 7. LTAC denial being appealed. Awaiting response. Code: Full Dispo: LTAC approval
--- NOTE | 2024-04-17 19:41 | PN ---
Date of Progress Note: 04/17/2024 Subjective: The patient was admitted to the hospital with acute kidney injury secondary to prerenal with electrolyte imbalance and severe acidosis. The patient was treated, recovered. Physical Examination: Vital Signs: When I saw the patient, blood pressure 124/74, pulse of 86. Chest: Clear to auscultation. Heart: S1, S2. Regular. Abdomen: Soft, nontender. Extremities: No edema. Laboratory Data: Hemoglobin 8, sodium 139, potassium 3.6, bicarb 29, BUN 27, creatinine 0.6, calcium 7.8. Current Medications: The patient on, it includes linezolid, meropenem, levothyroxine. Assessment And Plan: 1. Acute kidney injury secondary to prerenal/toxic ATN, recovered, resolved. 2. Urinary tract infection with urosepsis secondary to MRSA. Continue linezolid. Follow up with the ID. 3. Hypomagnesemia, hypokalemia, resolved. 4. Acidosis, resolved. SURJIT/PETER Voice ID: [id number] Report ID: [id number]
[2024-04-18] MEDS: POTASSIUM 25 MEQ EFFERV TAB PO ONE (09:58)
--- NOTE | 2024-04-18 16:26 | P.PN ---
Subjective Date of Service: 04/18/24 Chief Complaint: Urinary tract infection Patient has no new complaint. Patient has good oral intake. No recorded fever. Physical Examination - Vital Signs Temperature: 97.9 F Blood Pressure: 117/75 Pulse: 81 Respirations: 16 Pulse Ox (%): 100 Assessment And Plan - Plan Physical Exam: GEN: Alert, oriented x 4, NAD CV: Regular rate and rhythm, no edema Pulm: Nonlabored respirations on room air, clear bilaterally ABD: soft, nontender, nondistended Neuro: Normal speech, normal affect Patton catheter with clear urine Skin: Stage IV sacral decubitus ulcer, stage III ischial ulcer. Problem List: UTI associated with chronic Patton Chronic Sacral stage IV pressure ulcer and left ischial stage III pressure ulcer Suspected osteomylitis Acute cholecystitis/proctocolitis EDGAR secondary to dehydration Anemia, unknown etiology History of CVA History of arthritis Hypercholesterolemia Hypertension Hypothyroidism Kidney stone Osteoarthritis Plan: UTI associated with chronic Patton leukocytosis resolved. blood culture (04/02): no growth Urine cx (04/02): MRSA Doxycycline switched to zyvox per ID recs (04/09) Patton replaced 04/12/24 ID recommending 6 weeks of IV antibiotics. Feels patient would benefit from hyperbarics. Would benefit form LTAC for aggressive wound care, hyperbarics, IV abx, need for re evaluation by surgery pending approval Chronic Sacral stage IV pressure ulcer and left ischial stage III pressure ulcer Suspected osteomylitis Dr. Valdez, general surgeon is following continue IV zyvox and merrem (04/04-) Continue local wound care: cleanse with vashe. Apply Santyl to wound bed, gauze, foam and medipore tape daily. ID consulted given suspected sacral osteomyelitis ID recommending 6 weeks of IV antibiotics. Feels patient would benefit from hyperbarics. Pending LTAC approval Acute cholecystitis/proctocolitis Abdominal u/s (04/02): sludge and stones within the gallbladder with wall thickening, concerning for acute cholecystitis. Repeat CT abd/pelvis 04/07 shows some improvement Clinically improving continue above abx Dr. valdez, general surgeon recommending medical management for now, and elect speedy cholecystectomy in near future pain control EDGAR secondary to dehydration metabolic acidosis Nephrology following continue Sodium bicarb PO 650 mg BID continue to monitor renal function Anemia, unknown etiology No obvious bleeds or black tarry stools. Continue to monitor. hgb stable. History of CVA History of arthritis Hypercholesterolemia Hypertension Hypothyroidism Kidney stone Osteoarthritis continue home meds as appropriate 04/15 Patient is alert and oriented. EDGAR resolved. Bicarb replacement per nephrology. Continue current antibiotics. Patient slated for 6 weeks of IV antibiotics. He is currently on IV Zyvox and meropenem. Hemoglobin level fluctuates but overall stable. Diet as tolerated Awaiting insurance authorization for LTAC. 04/16 Continue IV Zyvox and meropenem Patient denied LTAC LTAC denial is being appealed. Infectious diseases following Wound care with [facility] Continue PT Diet as tolerated Hemoglobin has been stable. Monitor CBC and transfuse as needed for hemoglobin less than 7. 04/17 Continue current IV antibiotics. Local wound care with [facility] Monitor CBC and transfuse as needed for hemoglobin less than 7. LTAC denial being appealed. Awaiting response. 04/18 Patient has no new complaint. Clinically stable Continue IV antibiotics. Stable anemia. PT as tolerated. Continue local wound care. Awaiting LTAC appeal decision. Code: Full Dispo: Pending LTAC approval
[2024-04-18 20:04] VITALS: O2SAT 98
--- NOTE | 2024-04-18 21:47 | PN ---
Date of Progress Note: 04/18/2024 Subjective: The patient is admitted to the hospital with acute kidney injury secondary to prerenal a zotemia associated with electrolyte imbalance and severe acidosis. The patient was treated for acido sis and acute kidney injury. Renal function has improved. Review of Systems: Denies chest pain, palpitation. Physical Examination: Lungs: Clear to auscultation bilaterally. Heart: S1, S2. Abdomen: Soft, benign. Extremities: No edema. Impression And Plan: 1. Acute kidney injury secondary to prerenal azotemia, nonoliguric acute tubular necrosis. Renal fun ction recovered. 2. Urinary tract infection, urosepsis secondary to methicillin-resistant Staphylococcus aureus. Cont inue linezolid. The patient has been followed by Infectious Disease. 3. Hypomagnesemia, hypokalemia, resolved. Supplementation as needed. 4. Acidosis, resolved with renal function recovery. EB/MODL Voice ID: [id number] Report ID: [id number]
[2024-04-19 06:40] LABS: Anion Gap 6.6 mEq/L (5.0-15.0); Potassium 3.6 mEq/L (3.5-5.1)
[2024-04-19] MEDS: POTASSIUM CL SA 10 MEQ TAB PO ONE (07:50)
--- NOTE | 2024-04-19 09:33 | P.DS ---
Admission Date: 04/03/24 Discharge Date: 04/19/24 Disposition: LONGTERM ACUTE CARE FACILITY Discharge Condition: FAIR Reason for Admission: Urinary tract infection Hospital Course: Problem List: UTI associated with chronic Bang Chronic Sacral stage IV pressure ulcer and left ischial stage III pressure ulcer Suspected osteomylitis Acute cholecystitis/proctocolitis EDGAR secondary to dehydration Anemia, unknown etiology History of CVA History of arthritis Hypercholesterolemia Hypertension Hypothyroidism Kidney stone Osteoarthritis History of rheumatoid arthritis Patient presented to the ED with decreased urine output secondary to bang- catheter associated UTI. Urine culture grew MRSA. Blood cultures without growth. In addition to her UTI, she was also noted to have chronic pressure ulcers including stage 4 sacral and left-ischial stage [address] Valdez was consulted and recommended medical management with IV antibiotics, daily wound care. ID was consulted. Given the extensiveness of her wound, and suspicion for sacral osteomyelitis, ID recommended patient complete 6 weeks of IV antibiotics. Patient was initially started on merrem and doxy and had some improvement. Doxy was switched to zyvox on 04/09 per ID recs and patient continued to approve. Discussed with patient that she would highly benefit from LTAC due to needing aggressive daily wound care, prolonged IV antibiotics, hyperbaric treatments, and eventually re-evaluation by surgeon, to which she and her family were agreeable too. Patient was feeling better, afebrile without leukocytosis, and was deemed stable to LTAC. During her hospitalization, abdominal ultrasound noted sludge and stones within the gallbladder with wall thickening, concerning for acute cholecystitis. Repeat CT abd/pelvis 04/07 showed some improvement,. Dr. Valdez recommended medical management for now with the plan for elective cholecystectomy in the near future once these acute infections have resolved. Follow up with Dr. Valdez, general surgeon in near future for further discussion. continue local wound care: cleanse with vashe. Apply Santyl to wound bed, gauze, foam and medipore tape daily. Medications: Merrem Zyvox Vital Signs/Physical Exam: Temp Pulse Resp BP Pulse Ox 97.8 F 77 14 117/75 98 04/19/24 08:00 04/19/24 08:00 04/19/24 08:00 04/19/24 08:00 04/19/24 08:00 General: Alert, In no apparent distress, Oriented x3 HEENT: Mucous membr. moist/pink Neck: Supple, JVD not distended Respiratory: Clear to auscultation bilaterally, Normal air movement Cardiovascular: Regular rate/rhythm, Normal S1 S2 Gastrointestinal: Normal bowel sounds, Soft and benign, Non-distended, No tenderness Musculoskeletal: No swelling Laboratory Data at Discharge: WBC 8.30 thou/uL (4.3-10.9) 04/16/24 05:50 Hgb 8.0 g/dL (12.0-15.0) L 04/16/24 05:50 Hct 25.0 % (36.0-45.0) L 04/16/24 05:50 Plt Count 281 thou/uL (152-406) 04/16/24 05:50 PT 13.9 SECONDS (9.4-12.5) H 04/02/24 12:58 INR 1.33 04/02/24 12:58 Sodium 141 mEq/L (136-145) 04/19/24 06:18 Potassium 3.6 mEq/L (3.5-5.1) 04/19/24 06:18 BUN 22 mg/dL (7-18) H 04/19/24 06:18 Creatinine 0.45 mg/dL (0.55-1.02) L 04/19/24 06:18 Glucose 79 mg/dL (74-106) 04/19/24 06:18 Uric Acid 6.0 mg/dL (2.6-6.0) 04/05/24 06:08 Phosphorus 4.9 mg/dL (2.5-4.9) 04/10/24 04:08 Magnesium 2.2 mg/dL (1.6-2.4) 04/10/24 04:08 Total Bilirubin 0.5 mg/dL (0.2-1.0) 04/02/24 12:58 AST 29 U/L (15-37) 04/02/24 12:58 ALT < 14 U/L (13-56) 04/02/24 12:58 Alkaline Phosphatase 119 U/L (45-117) H 04/02/24 12:58 Lipase 18 U/L (13-75) 04/02/24 12:58 Home Medications: Gabapentin [Neurontin] 300 mg PO BID 11/29/15 Levothyroxine [Synthroid*] 100 mcg PO [id number] 11/29/15 Rosuvastatin [Crestor*] 10 mg PO BEDTIME 11/29/15 Montelukast [Singulair*] 10 mg PO BEDTIME 06/02/23 Acidophilus/Bulgaricus [Lactinex Packet] 1 each PO BID #60 packet 04/19/24 Ensure Enlive 237 ml PO BID can 04/19/24 Hydrocodone 5/APAP 325 [Rupert 5/325*] 1 tab PO Q4H PRN tab 04/19/24 Axel [Axel*] 1 pkt PO BID 04/19/24 Levothyroxine [Synthroid*] 0.125 mg PO DAILYAC tab 04/19/24 [facility] [[facility] Woundcare Gel*] 1 appl TOP DAILY tube 04/19/24 New Medications: Acidophilus/Bulgaricus [Lactinex Packet] 1 each PO BID #60 packet Physician Discharge Instructions: Physician discharge instructions: Patient presented to the ED with decreased urine output secondary to bnag- catheter associated UTI. Urine culture grew MRSA. Blood cultures without growth. In addition to her UTI, she was also noted to have chronic pressure ulcers including stage 4 sacral and left-ischial stage [address] Valdez was consulted and recommended medical management with IV antibiotics, daily wound care. ID was consulted. Given the extensiveness of her wound, and suspicion for sacral osteomyelitis, ID recommended patient complete 6 weeks of IV antibiotics. Patient was initially started on merrem and doxy and had some improvement. Doxy was switched to zyvox on 04/09 per ID recs and patient continued to approve. Discussed with patient that she would highly benefit from LTAC due to needing aggressive daily wound care, prolonged IV antibiotics, hyperbaric treatments, and eventually re-evaluation by surgeon, to which she and her family were agr eeable too. Patient was feeling better, afebrile without leukocytosis, and was deemed stable to LTAC. During her hospitalization, abdominal ultrasound noted sludge and stones within the gallbladder with wall thickening, concerning for acute cholecystitis. Repeat CT abd/pelvis 04/07 showed some improvement,. Dr. Valdez recommended medical management for now with the plan for elective cholecystectomy in the near future once these acute infections have resolved. Follow up with Dr. Valdez, general surgeon in near future for further discussion. continue local wound care: cleanse with vashe. Apply Santyl to wound bed, gauze, foam and medipore tape daily. Medications: Merrem Zyvox Follow up: PCP 3-5 days Please call to schedule / confirm appointments Sacral stage IV pressure ulcer and Left Ischial stage III pressure ulcer- cleanse with vashe. Apply Santyl to wound bed, gauze, foam and medipore tape daily. Followup: Sonal Washington MD [Primary Care Provider] - Time spent managing pt's care (in minutes): 35
[2024-04-19] MEDS: POTASSIUM 25 MEQ EFFERV TAB PO ONE (10:12)
[2024-04-19 12:49] VITALS: BP 122/77; TEMP 97.7
== END 2024-04-19 14:39 | DRG 698 ==
LOC: ER 12:38 → ERHOLD 16:35 → OBSVTOIN 04-03 12:02 → 2ND 04-03 15:11
PROVIDERS: ADMIT Internal Medicine; ATTEND Internal Medicine
PROC: 02HV33Z Insertion of Infusion Device into Superior Vena Cava, Percutaneous Approach (ICD-10-PCS; principal; 2024-04-10)
DX: T83.518A Infection and inflammatory reaction due to other urinary catheter, initial encounter (principal); L89.154 Pressure ulcer of sacral region, stage 4; L89.323 Pressure ulcer of left buttock, stage 3; N17.0 Acute kidney failure with tubular necrosis; M46.28 Osteomyelitis of vertebra, sacral and sacrococcygeal region; L03.317 Cellulitis of buttock; N30.00 Acute cystitis without hematuria; K81.0 Acute cholecystitis; L02.31 Cutaneous abscess of buttock; E87.20 Acidosis, unspecified; E87.1 Hypo-osmolality and hyponatremia; K51.30 Ulcerative (chronic) rectosigmoiditis without complications; E44.0 Moderate protein-calorie malnutrition; E87.6 Hypokalemia; I12.9 Hypertensive chronic kidney disease with stage 1 through stage 4 chronic kidney disease, or unspecified chronic kidney disease; N18.9 Chronic kidney disease, unspecified; D63.1 Anemia in chronic kidney disease; D63.8 Anemia in other chronic diseases classified elsewhere; E03.9 Hypothyroidism, unspecified; N20.0 Calculus of kidney; M06.9 Rheumatoid arthritis, unspecified; E83.42 Hypomagnesemia; E86.0 Dehydration; E78.00 Pure hypercholesterolemia, unspecified; M19.90 Unspecified osteoarthritis, unspecified site; B95.62 Methicillin resistant Staphylococcus aureus infection as the cause of diseases classified elsewhere; Z74.01 Bed confinement status; Z88.0 Allergy status to penicillin; Z88.1 Allergy status to other antibiotic agents; Z88.8 Allergy status to other drugs, medicaments and biological substances; Z68.25 Body mass index [BMI] 25.0-25.9, adult; Z86.73 Personal history of transient ischemic attack (TIA), and cerebral infarction without residual deficits; Z91.013 Allergy to seafood; Z91.018 Allergy to other foods; Z79.890 Hormone replacement therapy; Z96.651 Presence of right artificial knee joint; Z79.899 Other long term (current) drug therapy
CPT/HCPCS: 36415; 71045; 71250; 74176; 76705; 80048; 80076; 80202; 81001; 82550; 82570; 83520; 83605; 83690; 83735; 83880; 83935; 83970; 84100; 84132; 84156; 84165; 84300; 84439; 84443; 84484; 84550; 85025; 85027; 85610; 86021; 86038; 86160; 86225; 86334; 86430; 86704; 86706; 86803; 86850; 86900; 86901; 87040; 87045; 87046; 87077; 87086; 87088; 87186; 87324; 87340; 93005; 97110; 97161; 99285; G0378; J1644; J2020; J2185; J2405; J3475; J3480; J3590; J7030; J7040; J7050

== ENCOUNTER 2024-11-21 14:55 | Inpatient (IN) | payer OTHER ==
[2024-11-21 15:53] LABS: Absolute Lymphocytes (CBC) 1.0 K/uL (0.7-4.9); Hematocrit 33.3 % (36.0-45.0); Hemoglobin 11.2 g/dL (12.0-15.0); MCH 27.2 pg (27.0-35.0); MCHC 33.7 g/dL (32.0-36.0); MCV 80.5 fL (80-100); MPV 7.8 fL (7.6-11.3); Nucleated RBC Absolute Count 0.0 (0-0); Nucleated Red Blood Cells % 0.0 % (0-0); RBC Red Blood Cell Count 4.14 M/uL (3.86-4.86); White Blood Count 20.60 thou/uL (4.3-10.9)
[2024-11-21] MEDS ORDERED: NA CHLORIDE 0.9% 500 ML ONE ×2 (16:06→17:44)
[2024-11-21 16:19] LABS: ALT/SGPT 15.0 U/L (13-56); AST/SGOT 26.0 U/L (15-37); Albumin 1.5 g/dL (3.4-5.0); Albumin/Globulin Ratio 0.3 (1.1-1.8); Alkaline Phosphatase 118.0 U/L (45-117); Anion Gap 16.1 mEq/L (5.0-15.0); BUN Blood Urea Nitrogen 70.0 mg/dL (7-18); Globulin 5.3 g/dL (2.3-3.5); Glucose Level 97.0 mg/dL (74-106); NT PRO-BNP 1254.0 pg/mL (<125); Potassium 4.1 mEq/L (3.5-5.1); Troponin High Sensitivity 7.6 pg/mL (<58.9)
[2024-11-21 16:26] LABS: PT Prothrombin Time 15.0 SECONDS (10-13.0); PTT, Activated Partial Thromb 34.3 SECONDS (27.2-37.4); Protime INR 1.34
[2024-11-21 16:56] LABS: Sqamous Epithelial None Seen /HPF (None Seen); Urine Crystals Unidentified Few /HPF (None Seen); Urine Culture Reflex Order REFLEXED; Urine Microscopic Reflex YN ORDER UMIC; Urine WBC Clump Occasional /HPF (None Seen); Urine Yeast (Budding) Occasional /HPF (None Seen)
[2024-11-21 16:57] LABS: Blood Morphology Comment NOTED (NOT SEEN); Differential Total Cells Count 100; Ovalocytes SLIGHT; Segmented Neutrophils 91 % (40-80)
[2024-11-21] MEDS ORDERED: CEFTRIAXONE 1000 MG/VIAL ONE (17:44)
--- NOTE | 2024-11-21 18:19 | RAD REPORT ---
Procedure: Chest Single View HISTORY: Sepsis COMPARISON: November 03, 2024 FINDINGS: The lungs appear clear of acute infiltrate. No significant pleural effusion noted. The heart is normal size. Visualized: Upper limits normal caliber. Elevation of the right hemidiaphragm.
--- NOTE | 2024-11-21 18:19 | RAD REPORT ---
EXAM: CT CHEST, ABDOMEN AND PELVIS WITHOUT CONTRAST CLINICAL INDICATION: Chest and abdominal pain TECHNIQUE: CT chest, abdomen and pelvis was performed, without IV contrast, as per department protoco l. Axial, sagittal and coronal reconstructions were obtained. One or more of the following dose reduction techniques were used: Automated exposure control, adjustment of the mA and/or kV according to the patient size, and/or iterative reconstruction. Unless otherwise specified, incidental findings do not require dedicated imaging follow-up. The lack of IV and oral contrast limits evaluation of the mediastinum, moustapha, vessels, organs and abbie l. COMPARISON: March 2024 and July 2024 FINDINGS: Lungs are clear. No mediastinal or hilar lymphadenopathy seen. No pleural effusion. No pericardial effusion. Cholecystectomy. Liver, spleen, pancreas and adrenals grossly normal. Mild bilateral hydronephrosis and hydroureter. An obstructing ureteral calculus not seen. Small bladd er calculi. Patton catheter within the bladder. There is no evidence of diverticulitis Patton catheter within the bladder. The wall of the rectum appears thickened. Most of the remainder of the colon upper limits normal caliber. IMPRESSION: Wall of the rectum appears thickened probably proctitis. Decubitus ulcer with chronic sclerosis left ischium and distal sacrum compatible with chronic osteomy elitis.
--- NOTE | 2024-11-21 18:21 | ER ---
Nurse's Notes [facility] Name: Young Gates Age: 64 yrs Sex: Female : 1960 Arrival Date: 11/21/2024 Time: 14:55 Bed 2 Private MD: Diagnosis: UTI/ Urinary tract infection, site not specified;Severe sepsis with septic shock;Pressure ulcer of sacral region, stage 4;Unspecified open wound of left elbow, initial encounter Presentation: 11/21 15:02 Chief complaint: EMS states: toned out for no urine output since yesterday at 09:30. me1 Patient has a bang catheter with about 150 ml of dark yellow urine. Temp of 99.8. Has pressure ulcers to left arm and sacrum that are being treated by HH. Coronavirus screen: Vaccine status: Patient reports receiving the 2nd dose of the covid vaccine. Ebola Screen: No symptoms or risks identified at this time. Initial Sepsis Screen: Does the patient meet any 2 criteria? HR > 90 bpm. No. Patient's initial sepsis screen is negative. Does the patient have a suspected source of infection? No. Patient's initial sepsis screen is negative. Risk Assessment: Do you want to hurt yourself or someone else? Patient reports no desire to harm self or others. Onset of symptoms is unknown. 15:02 Method Of Arrival: EMS: [facility] [place] 15:02 Acuity: KJ 3 me1 Triage Assessment: 15:04 General: Appears in no apparent distress. slender, cachectic, Behavior is calm, me1 cooperative, appropriate for age. Pain: Denies pain. EENT: No signs and/or symptoms were reported regarding the EENT system. Neuro: Level of Consciousness is awake, alert, obeys commands, Oriented to person, place, time, situation, Appropriate for age. Cardiovascular: Patient's skin is warm and dry. Respiratory: Airway is patent Respiratory effort is even, unlabored, Respiratory pattern is. GI: No signs and/or symptoms were reported involving the gastrointestinal system. : Bang in place to gravity drainage Reports no urine output since 09:30 yesterday. Derm: Skin is fragile, is thin, with poor turgor Skin is normal. Musculoskeletal: Reports generalized weakness. Historical: - Allergies: 15:04 Ampicillin; me1 15:04 Azithromycin; me1 15:04 Chocolate; me1 15:04 Iodine; me1 15:04 Lisinopril; me1 15:04 PENICILLINS; me1 15:04 SHELLFISH; me1 - PMHx: 15:04 Arthritis; Cerebrovascular accident; chronic sacral pressure ulcer; me1 Hypercholesterolemia; Hypertension; Hypothyroidism; Kidney stones; osteoarthritis; - PSHx: 15:04 Right knee replacement; me1 - Immunization history:: Adult Immunizations up to date. - Infectious Disease History:: Denies. - Social history:: Smoking status: Patient/guardian denies using tobacco, but has a distant history of tobacco abuse. Screenin:23 [facility] ED Fall Risk Assessment (Adult) History of falling in the last 3 months, lg3 including since admission No falls in past 3 months (0 pts) Confusion or Disorientation No (0 pts) Intoxicated or Sedated No (0 pts) Impaired Gait Yes (1 pt) Mobility Assist Device Used No (0 pt) Altered Elimination Yes (1 pt) Score/Fall Risk Level 0 - 2 = Low Risk Oriented to surroundings, Maintained a safe environment, Educated pt \\T\\ family on fall prevention, incl call for assistance when getting out of bed, Assessed \\T\\ reinforced patient's understanding of fall precautions, Provided non-skid footwear. Abuse screen: Denies threats or abuse. Denies injuries from another. Nutritional screening: No deficits noted. Tuberculosis screening: No symptoms or risk factors identified. Assessment: 15:05 General: Appears uncomfortable, unkempt, cachectic, Behavior is cooperative, flat, nh2 quiet, Smells of foul-smelling urine. Pain: Complains of pain in arms and legs bilateally Pain does not radiate. Pain currently is 10 out of 10 on a pain scale. Quality of pain is described as aching, Pain began chronic Is intermittent, Alleviated by rest, Aggravated by increased activity, repositioning, Noted to be grimacing, moaning, resistant to movement. Neuro: Level of Consciousness is awake, alert, obeys commands, Oriented to person, place, time, situation. Cardiovascular: Rhythm is sinus rhythm with multifocal PVCs. Respiratory: Airway is patent Trachea midline Respiratory effort is even, unlabored, Respiratory pattern is regular, symmetrical. GI: Abdomen is round non-distended. : Bang in place to gravity drainage Urine is cloudy. EENT: No signs and/or symptoms were reported regarding the EENT system. Derm: Skin is fragile, Skin temperature is warm Decubitus located on sacrum approximately 2.6 cm to 7.5 cm is stage III has macerated edges is draining small amount malodorous. Musculoskeletal: Range of motion: limited in all extremities, Reports having contractures and arms and legs bilaterally and experiences pain when repositioning. 15:05 Derm: Decubitus located on left lower gluteus approximately 2.6 cm to 7.5 cm is stage nh2 III has macerated edges is draining small amount malodorous. 15:05 Derm: Decubitus located on left elbow(s) approximately approximately bernard sized is nh2 stage III has erythematous edges is draining small amount malodorous, purulent. 15:10 Reassessment: Pt is unkept, skin appears unclean and very dry, some skin areas appear aa5 to be feces. Pt's hair is unclean and scalp with yellowish dry skin noted. Pt states "I live with my caregiver and she washed my hair yesterday". Cleaned pt's skin using wipes, pt tolerated poorly, reports pain to whole body due to hx of arthritis. Pt's palms were noted to be with brownish dry substance, possibly feces, cleaned pt's palms and between fingers using wipes. Pt received with dirty hospital gown, clean gown applied. . 16:20 Reassessment: Bang noted in place with large amount of urine leaking, pt's legs are aa5 contracted and with very limited mobility, urine accumulation to perineal area noted, urine is foul smelling urine, dark in color, and with mucous noted. Pt cleaned and clean brief applied. . 17:30 Reassessment: Pt cleaned of moderate amount of soft brown stool, clean brief applied. aa5 Cleaned sacral wounds and left elbow wound with saline and gauze, applied new Mepilex dressing to wounds. . 19:23 General: Appears in no apparent distress. comfortable, slender, unkempt, Behavior is lg3 calm, cooperative. Pain: Denies pain. Neuro: No deficits noted. Tejeda Agitation-Sedation Scale (RASS): 0 - Alert and Calm Level of Consciousness is awake, alert, obeys commands, Oriented to person, place, time, situation. Cardiovascular: No deficits noted. Denies chest pain, shortness of breath, Capillary refill < 3 seconds Clubbing of nail beds is absent JVD is absent Patient's skin is warm and dry. Respiratory: No deficits noted. Airway is patent Respiratory effort is even, unlabored, Respiratory pattern is regular, symmetrical. GI: Abdomen is flat, non-distended. : Bang in place to gravity drainage Urine is cloudy. EENT: No deficits noted. No signs and/or symptoms were reported regarding the EENT system. Derm: Skin is fragile, is thin, Skin is dry, Skin is normal, Skin temperature is warm Wound noted left elbow, coccyx, left leg. Musculoskeletal: Range of motion: limited in all extremities. 20:40 General: hospitalist notified of recurrent soft pressures. received order for albumin. lg3 PT to go upstairs after completion of albumin. 20:49 Reassessment: Patient appears in no apparent distress at this time. No changes from lg3 previously documented assessment. Patient and/or family updated on plan of care and expected duration. Pain level reassessed. Patient is alert, oriented x 3, equal unlabored respirations, skin warm/dry/pink. Vital Signs: 15:02 BP 90 / 67; Pulse 115; Resp 24; Temp 99.8; Pulse Ox 97% ; Weight 58.06 kg; Height 5 ft. me1 8 in. ; 15:20 BP 109 / 79; Pulse 114; Resp 19 S; Temp 98.6(O); Pulse Ox 100% on R/A; aa5 16:00 BP 112 / 82; Pulse 107; Resp 18 S; Pulse Ox 100% on R/A; aa5 16:40 BP 105 / 73; Pulse 109; Resp 16 S; Temp 98.3(O); Pulse Ox 100% on R/A; aa5 17:15 BP 87 / 62; Pulse 102; Resp 16 S; Pulse Ox 100% on R/A; aa5 17:30 BP 90 / 61; Pulse 102; Resp 19 S; Temp 98.6(O); Pulse Ox 100% on R/A; aa5 18:00 BP 114 / 65; Pulse 108; Resp 16 S; Pulse Ox 99% on R/A; aa5 18:06 BP 107 / 64; Pulse 107; Resp 18 S; Temp 98.5(O); Pulse Ox 100% on R/A; aa5 18:15 BP 97 / 44; Pulse 103; Resp 18 S; Pulse Ox 100% on R/A; aa5 18:30 BP 85 / 43; Pulse 105; Resp 18 S; Pulse Ox 100% on R/A; aa5 18:37 BP 101 / 62; Pulse 106; Resp 16 S; Temp 98.5(O); Pulse Ox 100% on R/A; aa5 18:45 BP 84 / 54; Pulse 52; Resp 14 S; Pulse Ox 100% on R/A; nh2 18:55 BP 80 / 58; Pulse 93; Resp 14 S; Pulse Ox 98% on R/A; nh2 19:23 BP 98 / 69; Pulse 92; Resp 15; Pulse Ox 98% on R/A; lg3 20:48 BP 99 / 56; Pulse 87; Resp 16 S; Pulse Ox 98% on R/A; lg3 22:43 BP 95 / 61; Pulse 91; Resp 15 S; Pulse Ox 99% on R/A; lg3 15:02 Body Mass Index 19.46 (58.06 kg, 172.72 cm) me1 18:45 PA notified of decreased BP nh2 ED Course: 15:02 Patient arrived in ED. me1 15:04 Triage completed. me1 15:04 Fam Cool PA-C is PHCP. cp 15:04 Arm band placed on Patient placed in an exam room. me1 15:05 Fam Hall MD is Attending Physician. cp 15:09 Giovanni Walters Jr, RN is Primary Nurse. nh2 15:10 Patient has correct armband on for positive identification. Placed in gown. Bed in low aa5 position. Call light in reach. Side rails up X2. Client placed on continuous cardiac and pulse oximetry monitoring. NIBP monitoring applied. groundwater monitoring technician on. Pulse ox on. NIBP on. 15:35 Inserted saline lock: 20 gauge in left wrist, using aseptic technique. Flushed with 10 aa5 mL NS. 15:40 Initial lab(s) drawn, by me, sent to lab. First set of blood cultures drawn by me. aa5 15:49 Chest Single View XRAY In Process Unspecified. EDMS 15:53 EKG done, by ED staff, reviewed by Fam Cool PA-C. pm7 16:00 Second set of blood cultures drawn by ok. aa5 16:05 Inserted saline lock: 20 gauge in right hand, using aseptic technique. Flushed with 10 aa5 mL NS. 16:25 Bang cath removed intact, balloon deflated. aa5 16:40 Bang cath inserted, using sterile technique, 22 Fr., by ok, balloon inflated, to aa5 gravity drainage, urine specimen collected. Patient tolerated poorly. 17:28 CT Chest Abdomen Pelvis W/O Contrast In Process Unspecified. EDMS 18:11 Aunt/ Caregiver : Awa Chavez [phone] would like to be called if we decide to eb keep or discharge her. 18:20 Moises Ely, RN is Hospitalizing Provider. cp 18:28 XRAY Elbow LEFT 3 view In Process Unspecified. EDMS 18:46 Wound Culture Sent. nh2 19:00 Report given to EUNICE Zuniga. nh2 19:23 Door closed. Noise minimized. Warm blanket given. Pillow given. lg3 22:39 Cleaned of incontinence. Linen changed. lg3 22:39 No provider procedures requiring assistance completed. Patient admitted, IV remains in lg3 place. Administered Medications: 16:05 Drug: NS 0.9% IV 500 ml 500 ml IV at 1 bolus once; to be given as a bolus over 60 nh2 minutes Volume: 500 ml; Route: IV; Rate: 1 bolus; Site: right hand; 17:05 Follow up: IV Status: Completed infusion; IV Intake: 500ml aa5 17:45 Drug: Rocephin IV 1 grams IV at calculated rate once; Given slow IV push per pharmacy aa5 instructions Route: IV; Rate: calculated rate; Site: right hand; 17:50 Follow up: Response: No adverse reaction; IV Status: Completed infusion aa5 17:45 Drug: NS 0.9% IV 500 ml 500 ml IV at 1 bolus once; to be given as a bolus over 30 aa5 minutes Volume: 500 ml; Route: IV; Rate: 1 bolus; Site: right hand; 18:15 Follow up: IV Status: Completed infusion; IV Intake: 500ml aa5 18:30 Drug: vancoMYCIN IVPB 500 mg IVPB once over 1 hrs Route: IVPB; Infused Over: 1 hrs; aa5 Site: right hand; 19:03 Follow up: Response: No adverse reaction nh2 20:56 Follow up: Response: No adverse reaction; IV Status: Completed infusion; IV Intake: lg3 250ml 19:00 Drug: NS 0.9% IV (30 ml/kg) 30 ml/kg IV at bolus once; Sepsis Protocol; subtract 1L NS nh2 already given. Route: IV; Rate: bolus; Site: right hand; 20:56 Follow up: Response: No adverse reaction; IV Status: Completed infusion; IV Intake: lg3 1000ml 19:03 CANCELLED (Duplicate Order): ns 0.9% (30 ml/kg) 30 ml/kg IV at bolus once; Sepsis nh2 Protocol; to be given as a bolus over 90 minutes 20:56 Drug: Albumin IVPB 50 grams 100 ml IVPB once; (Note: Albumin 25% concentration) Volume: lg3 100 ml; Route: IVPB; Site: right hand; 22:40 Follow up: Response: No adverse reaction; IV Status: Completed infusion; IV Intake: lg3 100ml Medication: 19:23 VIS not applicable for this client. lg3 Intake: 17:05 IV: 500ml; Total: 500ml. aa5 18:15 IV: 500ml; Total: 1000ml. aa5 20:56 IV: 1000ml; Total: 2000ml. lg3 20:56 IV: 250ml; Total: 2250ml. lg3 22:40 IV: 100ml; Total: 2350ml. lg3 Outcome: 18:20 Decision to Hospitalize by Provider. cp 22:39 Admitted to Med/surg accompanied by tech, via stretcher, room 207, lg3 22:39 Condition: stable 22:39 Instructed on the need for admit, 22:44 Patient left the ED. lg3 Signatures: Dispatcher [employer] EDAZ Maren Trujillo, RN RN aa5 Fam Cool, PA-C PA-C Selma Johnson Lacie RN RN lg3 Seema Mckay RN RN me1 Giovanni Walters Jr RN RN nh2 Allyn Mcnulty pm7 Corrections: (The following items were deleted from the chart) 17:01 16:35 Bang cath removed intact, balloon deflated, aa5 aa5 17:17 16:20 Reassessment: Bang noted in place with large amount of urine leaking, pt's legs aa5 are contracted and with very limited mobility, urine accumulation to perineal area noted, urine is foul smelling urine, dark in color, and with mucous noted. Pt cleaned and clean brief applied. . aa5 18:49 15:05 : Bang in place to gravity drainage clamped Urine is cloudy, nh2 aa5 18:54 15:05 Derm: Skin is fragile, Skin temperature is warm Wound noted coccyx, and L elbow nh2 nh2
--- NOTE | 2024-11-21 18:21 | EDPHYS ---
Physician Documentation [facility] Name: oYung Gates Age: 64 yrs Sex: Female : 1960 Arrival Date: 11/21/2024 Time: 14:55 Bed 2 Private MD: ED Physician Fam Hall HPI: 11/21 15:15 This 64 yrs old Female presents to ER via EMS with complaints of Urinary Problem. cp 15:15 The patient presents with urinary symptoms, decreased urine output. Onset: The cp symptoms/episode began/occurred yesterday. 15:15 Associated signs and symptoms: Pertinent negatives: diarrhea, fever, vomiting, chest cp pain. 15:15 Severity of symptoms: in the emergency department the symptoms are unchanged, despite cp home interventions. Historical: - Allergies: 15:04 Ampicillin; me1 15:04 Azithromycin; me1 15:04 Chocolate; me1 15:04 Iodine; me1 15:04 Lisinopril; me1 15:04 PENICILLINS; me1 15:04 SHELLFISH; me1 - PMHx: 15:04 Arthritis; Cerebrovascular accident; chronic sacral pressure ulcer; me1 Hypercholesterolemia; Hypertension; Hypothyroidism; Kidney stones; osteoarthritis; - PSHx: 15:04 Right knee replacement; me1 - Immunization history:: Adult Immunizations up to date. - Infectious Disease History:: Denies. - Social history:: Smoking status: Patient/guardian denies using tobacco, but has a distant history of tobacco abuse. ROS: 15:20 : Positive for decreased urine output, cp 15:20 Constitutional: Negative for fever, cp 15:20 Cardiovascular: Negative for chest pain, cp 15:20 Respiratory: Negative for cough, shortness of breath, wheezing, 15:20 Eyes: Negative for injury, pain, redness, and discharge, cp 15:20 Abdomen/GI: Negative for abdominal pain, vomiting, diarrhea, constipation, black/tarry stool, 15:20 Neuro: Negative for altered mental status, headache, 15:20 All other systems are negative, Exam: 15:20 Head/Face: Normocephalic, atraumatic. cp 15:20 Constitutional: The patient appears in no acute distress, alert, awake, non-diaphoretic, non-toxic, well developed, well nourished, 15:20 Eyes: Periorbital structures: appear normal, Pupils: equal, round, and reactive to light and accomodation, Extraocular movements: intact throughout, Conjunctiva: normal, no exudate, no injection, Sclera: no appreciated abnormality, Lids and lashes: appear normal, bilaterally, 15:20 ENT: External ear(s): are unremarkable, Nose: is normal, Mouth: Lips: dry, Oral mucosa: dry, Posterior pharynx: Airway: no evidence of obstruction, patent, 15:20 Neck: ROM/movement: Meningeal signs: are not present, 15:20 Chest/axilla: Inspection: normal, Palpation: crepitus, is not appreciated, tenderness, is not appreciated, 15:20 Cardiovascular: Rate: tachycardic, Rhythm: regular, Edema: ankle edema, that is very mild, JVD: is not appreciated, 15:20 Respiratory: the patient does not display signs of respiratory distress, Respirations: labored breathing, is not present, Breath sounds: are clear throughout, no decreased breath sounds, no stridor, no wheezing, 15:20 Abdomen/GI: Inspection: abdomen appears normal, Palpation: abdomen is soft and non-tender, in all quadrants, 15:20 Skin: open wound left elbow with purulent drainage, open wound coccyx area. 15:20 Neuro: Orientation: to person, place \T\ time. Mentation: able to follow commands, Motor: the patient is contracted, 15:53 ECG was reviewed by the Attending Physician. cp Vital Signs: 15:02 BP 90 / 67; Pulse 115; Resp 24; Temp 99.8; Pulse Ox 97% ; Weight 58.06 kg; Height 5 ft. me1 8 in. ; 15:20 BP 109 / 79; Pulse 114; Resp 19 S; Temp 98.6(O); Pulse Ox 100% on R/A; aa5 16:00 BP 112 / 82; Pulse 107; Resp 18 S; Pulse Ox 100% on R/A; aa5 16:40 BP 105 / 73; Pulse 109; Resp 16 S; Temp 98.3(O); Pulse Ox 100% on R/A; aa5 17:15 BP 87 / 62; Pulse 102; Resp 16 S; Pulse Ox 100% on R/A; aa5 17:30 BP 90 / 61; Pulse 102; Resp 19 S; Temp 98.6(O); Pulse Ox 100% on R/A; aa5 18:00 BP 114 / 65; Pulse 108; Resp 16 S; Pulse Ox 99% on R/A; aa5 18:06 BP 107 / 64; Pulse 107; Resp 18 S; Temp 98.5(O); Pulse Ox 100% on R/A; aa5 18:15 BP 97 / 44; Pulse 103; Resp 18 S; Pulse Ox 100% on R/A; aa5 18:30 BP 85 / 43; Pulse 105; Resp 18 S; Pulse Ox 100% on R/A; aa5 18:37 BP 101 / 62; Pulse 106; Resp 16 S; Temp 98.5(O); Pulse Ox 100% on R/A; aa5 18:45 BP 84 / 54; Pulse 52; Resp 14 S; Pulse Ox 100% on R/A; nh2 18:55 BP 80 / 58; Pulse 93; Resp 14 S; Pulse Ox 98% on R/A; nh2 19:23 BP 98 / 69; Pulse 92; Resp 15; Pulse Ox 98% on R/A; lg3 20:48 BP 99 / 56; Pulse 87; Resp 16 S; Pulse Ox 98% on R/A; lg3 22:43 BP 95 / 61; Pulse 91; Resp 15 S; Pulse Ox 99% on R/A; lg3 15:02 Body Mass Index 19.46 (58.06 kg, 172.72 cm) me1 18:45 PA notified of decreased BP nh2 MDM: 15:05 Medical Screening Exam initiated cp 16:00 Differential diagnosis: urinary tract infection, sepsis, electrolyte abnormality, acute cp kidney failure, neglect. 19:10 Data reviewed: vital signs, nurses notes, lab test result(s), EKG, radiologic studies, cp CT scan, plain films, and as a result, I will admit patient. 19:10 Management of patient was discussed with the following: Hospitalist: MR Donnelly will cp admit after discussion. I considered the following discharge prescriptions or medication management in the emergency department Medications were administered in the Emergency Department. See MAR. Independent interpretation of the following test(s) in the Emergency Department EKG: See my EKG interpretation above. Test considered but Not performed: MRI: elbow and pelvis. Care significantly affected by the following chronic conditions: Hypertension. Care significantly affected by the following Social Determinants of Health: Problems related to primary support group. Counseling: I had a detailed discussion with the patient and/or guardian regarding the historical points, exam findings, and any diagnostic results supporting the discharge/admit diagnosis, lab results, radiology results, the need for further work-up and treatment in the hospital. Response to treatment: the patient's symptoms have mildly improved after treatment, and as a result, I will admit patient. 11/21 15:15 Order name: BNP; Complete Time: 16:51 11/21 16:51 Interpretation: Abnormal: NT PRO-BNP 1254. 11/21 15:15 Order name: Blood Culture Adult (2) 11/21 15:15 Order name: CBC with Diff; Complete Time: 17:22 11/21 16:53 Interpretation: Normal except: WBC 20.60; HGB 11.2; HCT 33.3; PLT 429; RDW 17.4; CAROL% cp 92.2; LYM% 5.0; MN% 2.6; NEUT A 19.0. 11/21 15:15 Order name: CMP; Complete Time: 16:51 11/21 16:53 Interpretation: Normal except: NA 126; CL 97; CO2 17; ANION GAP 16.1; BUN 70; CRE 3.59; cp GFR 14; ALK 118; CA 7.1; ALB 1.5; GLOB 5.3; A/G 0.3. 11/21 15:15 Order name: Lactate w/ 2H reflex if indic.; Complete Time: 16:51 11/21 15:15 Order name: Protime (+inr); Complete Time: 16:51 11/21 16:53 Interpretation: PT 15.0; Reviewed. cp 11/21 15:15 Order name: Ptt, Activated; Complete Time: 16:51 11/21 15:15 Order name: Troponin HS; Complete Time: 16:51 11/21 15:15 Order name: UA Rfx Pierce Cult if indicated; Complete Time: 16:57 11/21 16:57 Interpretation: Normal except: [facility] Extremely Turbid; UBLD 3+; UPH 8.0; UPROT 2+; UESTR cp 500; UWBC >50; URBC >50; UWBC Clump Occasional; BYST Occasional. 11/21 15:52 Order name: Glucose, Ancillary Testing; Complete Time: 16:51 EDIL 11/21 16:02 Order name: Manual Differential; Complete Time: 17:22 [facility] 11/21 17:54 Interpretation: Normal except: SEGS 91; LYM 4. 11/21 16:57 Order name: CK; Complete Time: 17:53 11/21 17:53 Interpretation: Reviewed. 11/21 16:59 Order name: Urine Culture EDIL 11/21 18:15 Order name: Wound Culture 11/21 15:15 Order name: Chest Single View XRAY; Complete Time: 19:08 11/21 16:57 Order name: CT Chest Abdomen Pelvis W/O Contrast; Complete Time: 19:08 11/21 18:14 Order name: XRAY Elbow LEFT 3 view; Complete Time: 21:36 11/21 21:36 Interpretation: Report reviewed. 11/21 15:15 Order name: Accucheck; Complete Time: 16:04 11/21 15:15 Order name: Cardiac monitoring; Complete Time: 16:04 11/21 15:15 Order name: EKG - Nurse/Tech; Complete Time: 16:04 11/21 15:15 Order name: IV Saline Lock - Large Bore; Complete Time: 16:04 11/21 15:15 Order name: Labs collected and sent; Complete Time: 16:04 11/21 15:15 Order name: O2 Per Protocol; Complete Time: 16:04 11/21 15:15 Order name: O2 Sat Monitoring; Complete Time: 16:04 11/21 15:15 Order name: Vital Signs; Complete Time: 16:04 11/21 15:15 Order name: Bnag: exchange bang; Complete Time: 16:49 11/21 17:41 Order name: Vital Signs; Complete Time: 18:22 11/21 19:01 Order name: Misc. Order: total fluid amount 1740; Complete Time: 19:08 cp EC:53 Rate is 113 beats/min. Rhythm is regular. MI interval is normal. QRS interval is cp normal. QT interval is normal. Interpreted by me. Reviewed by me. Administered Medications: 16:05 Drug: NS 0.9% IV 500 ml 500 ml IV at 1 bolus once; to be given as a bolus over 60 nh2 minutes Volume: 500 ml; Route: IV; Rate: 1 bolus; Site: right hand; 17:05 Follow up: IV Status: Completed infusion; IV Intake: 500ml aa5 17:45 Drug: Rocephin IV 1 grams IV at calculated rate once; Given slow IV push per pharmacy aa5 instructions Route: IV; Rate: calculated rate; Site: right hand; 17:50 Follow up: Response: No adverse reaction; IV Status: Completed infusion aa5 17:45 Drug: NS 0.9% IV 500 ml 500 ml IV at 1 bolus once; to be given as a bolus over 30 aa5 minutes Volume: 500 ml; Route: IV; Rate: 1 bolus; Site: right hand; 18:15 Follow up: IV Status: Completed infusion; IV Intake: 500ml aa5 18:30 Drug: vancoMYCIN IVPB 500 mg IVPB once over 1 hrs Route: IVPB; Infused Over: 1 hrs; aa5 Site: right hand; 19:03 Follow up: Response: No adverse reaction nh2 20:56 Follow up: Response: No adverse reaction; IV Status: Completed infusion; IV Intake: lg3 250ml 19:00 Drug: NS 0.9% IV (30 ml/kg) 30 ml/kg IV at bolus once; Sepsis Protocol; subtract 1L NS nh2 already given. Route: IV; Rate: bolus; Site: right hand; 20:56 Follow up: Response: No adverse reaction; IV Status: Completed infusion; IV Intake: lg3 1000ml 19:03 CANCELLED (Duplicate Order): ns 0.9% (30 ml/kg) 30 ml/kg IV at bolus once; Sepsis nh2 Protocol; to be given as a bolus over 90 minutes 20:56 Drug: Albumin IVPB 50 grams 100 ml IVPB once; (Note: Albumin 25% concentration) Volume: lg3 100 ml; Route: IVPB; Site: right hand; 22:40 Follow up: Response: No adverse reaction; IV Status: Completed infusion; IV Intake: lg3 100ml Disposition Summary: 11/21/24 18:20 Hospitalization Ordered Notes: Hospitalization Status: Inpatient Admission cp Provider: Moises Ely [facility] cp Condition: Fair cp Problem: new cp Symptoms: have improved cp Bed/Room Type: Standard cp Room Assignment: [id number](11/21/24 20:42) vk Diagnosis - UTI/ Urinary tract infection, site not specified cp - Severe sepsis with septic shock cp - Pressure ulcer of sacral region, stage 4 cp - Unspecified open wound of left elbow, initial encounter cp Forms: - Medication Reconciliation Form cp - SBAR form cp - Leadership Thank You Letter cp Critical care time excluding procedures: 11/22 03:49 Critical care time: Bedside Care: 8 minutes, Consultation: 40 minutes. Total time: 48 cp minutes Signatures: Dispatcher [employer] EDMaren Kearney, RN RN aa5 Fam Cool PA-C PA-C Nadia Bledsoe, RN RN lg3 Seema Mckay, RN RN me1 Nora Lindo Jr, Noel, RN RN nh2 Corrections: (The following items were deleted from the chart) 11/21 15:16 15:15 PROBNP+C.LAB.BRZ ordered. EDMS EDMS 15:16 15:15 BLOOD CULTURE*+BA.LAB.BRZ ordered. EDMS EDMS 15:16 15:15 CBC+H.LAB.BRZ ordered. EDMS EDMS 15:16 15:15 COMPREHENSIVE METABOLIC PANEL+C.LAB.BRZ ordered. EDMS EDMS 15:16 15:15 LACTATE+C.LAB.BRZ ordered. EDMS EDMS 15:16 15:15 PROTIME (+INR)+COAG.LAB.BRZ ordered. EDMS EDMS 15:16 15:15 PTT, ACTIVATED+COAG.LAB.BRZ ordered. EDMS EDMS 15:16 15:15 Troponin High Sensitivity+C.LAB.BRZ ordered. EDMS EDMS 15:16 15:15 UA Rfx Pierce Cult if indicated+U.LAB.BRZ ordered. EDMS EDMS 15:16 15:16 Chest Single View+RAD.RAD.BRZ ordered. EDMS EDMS 15:28 15:15 Onset: The symptoms/episode began/occurred today, cp cp 15:29 15:28 : Positive for decreased urine output, cp cp 16:57 16:57 CREATINE PHOSPHOKINASE+C.LAB.BRZ ordered. EDMS EDMS 19:03 19:01 NS 0.9% IV (30 ml/kg) 30 ml/kg IV at bolus once; Sepsis Protocol; to be given as nh2 a bolus over 90 minutes ordered. cp 19:10 18:20 Severe sepsis without septic shock cp cp 20:42 18:20 cp vk
[2024-11-21] MEDS ORDERED: VANCOMYCIN 500 MG/VIAL ONE (18:29)
[2024-11-21] MEDS ORDERED: NA CHLORIDE 0.9% 250 ML ONE (18:30)
[2024-11-21] MEDS ORDERED: NA CHLORIDE 0.9% 1,000 ML ONE (18:55)
--- NOTE | 2024-11-21 19:22 | RAD REPORT ---
Exam:Elbow Left 3 View HISTORY: Left elbow pain FINDINGS: Lateral view of the elbow obtained Ulceration soft tissues posterior elbow. No obvious bony destructive lesion seen. No fracture or dislocation seen
[2024-11-21] MEDS ORDERED: ALBUMIN HUMAN 25% 100 ML IV ONE (20:49)
[2024-11-21 22:59] VITALS: BMI 19.1
[2024-11-22] MEDS: VANCOMYCIN 1 GM in NA CHLORIDE 0.9% 250 ML IVPB ONE (00:16)
[2024-11-22] MEDS: HEPARIN 5000 UNIT/ML 1 ML VIAL SQ SCH (00:26)
[2024-11-22] MEDS: NA CHLORIDE 0.9% 1,000 ML IV SCH (00:28)
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
[2024-11-22] MEDS: VANCOMYCIN 1.25 GM in NA CHLORIDE 0.9% 250 ML IVPB SCH (06:00)
[2024-11-22 08:11] LABS: AST/SGOT 21 U/L (15-37); Albumin 1.1 g/dL (3.4-5.0); Albumin/Globulin Ratio 0.4 (1.1-1.8); Alkaline Phosphatase 65 U/L (45-117); Anion Gap 11.2 mEq/L (5.0-15.0); BUN Blood Urea Nitrogen 45 mg/dL (7-18); Globulin 2.9 g/dL (2.3-3.5); Glucose Level 49 mg/dL (74-106); Magnesium 1.4 mg/dL (1.6-2.4)
[2024-11-22 08:12] LABS: ALT/SGPT < 14 U/L (13-56)
[2024-11-22 08:17] LABS: Potassium 2.2 mEq/L (3.5-5.1)
[2024-11-22] MEDS ORDERED: GLUCAGON 1 MG/VIAL IM PRN (09:46)
[2024-11-22] MEDS ORDERED: D10W 125 ML IV PRN (09:46)
[2024-11-22] MEDS: CEFTRIAXONE 2,000 MG in NA CHLORIDE 0.9% 100 ML IV SCH (09:56)
[2024-11-22] MEDS: CALCIUM GLUCONATE 1 GM IVPB 1 GM/50 ML BAG IV ONE (09:57)
[2024-11-22] MEDS ORDERED: D50W 25 GM/50 ML SYRINGE IV PRN (11:00)
[2024-11-22] MEDS: Magnesium Sulfate 2gm IVPB 2 G/50 ML BAG IV ONE (11:20)
[2024-11-22] MEDS: KCL 20 MEQ/100 mL IVPB 20 MEQ/100 ML BAG IV SCH (11:20)
[2024-11-22] MEDS: ACETAMINOPHEN 325 MG TABLET PO PRN (14:03)
[2024-11-22 16:45] LABS: Absolute Lymphocytes (CBC) 0.9 K/uL (0.7-4.9); Hematocrit 26.9 % (36.0-45.0); Hemoglobin 9.1 g/dL (12.0-15.0); MCH 27.3 pg (27.0-35.0); MCHC 34.0 g/dL (32.0-36.0); MCV 80.1 fL (80-100); MPV 8.4 fL (7.6-11.3); Nucleated RBC Absolute Count 0.0 (0-0); Nucleated Red Blood Cells % 0.0 % (0-0); RBC Red Blood Cell Count 3.36 M/uL (3.86-4.86); White Blood Count 10.90 thou/uL (4.3-10.9)
[2024-11-23 04:21] LABS: Absolute Lymphocytes (CBC) 1.1 K/uL (0.7-4.9); Hematocrit 25.3 % (36.0-45.0); Hemoglobin 8.3 g/dL (12.0-15.0); MCH 26.5 pg (27.0-35.0); MCHC 32.7 g/dL (32.0-36.0); MCV 81.0 fL (80-100); MPV 8.5 fL (7.6-11.3); Nucleated RBC Absolute Count 0.0 (0-0); Nucleated Red Blood Cells % 0.1 % (0-0); RBC Red Blood Cell Count 3.12 M/uL (3.86-4.86); White Blood Count 7.90 thou/uL (4.3-10.9)
[2024-11-23 05:01] LABS: AST/SGOT 31 U/L (15-37); Albumin 1.2 g/dL (3.4-5.0); Albumin/Globulin Ratio 0.3 (1.1-1.8); Alkaline Phosphatase 88 U/L (45-117); Anion Gap 9.8 mEq/L (5.0-15.0); BUN Blood Urea Nitrogen 37 mg/dL (7-18); Globulin 3.6 g/dL (2.3-3.5); Glucose Level 90 mg/dL (74-106); Magnesium 2.1 mg/dL (1.6-2.4); Potassium 2.8 mEq/L (3.5-5.1)
[2024-11-23 05:02] LABS: ALT/SGPT < 14 U/L (13-56)
[2024-11-23] MEDS: VANCOMYCIN 1 GM in NA CHLORIDE 0.9% 250 ML IVPB SCH (05:39)
[2024-11-23] MEDS: KCL 20 MEQ/100 mL IVPB 20 MEQ/100 ML BAG IV SCH (10:19)
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
[2024-11-23] MEDS: MIRTAZAPINE 15 MG TAB PO SCH (15:25)
[2024-11-23] MEDS: ROSUVASTATIN 10 MG TAB PO SCH (20:59)
[2024-11-23] MEDS: MONTELUKAST 10 MG TAB PO SCH (20:59)
[2024-11-23] MEDS: CEFTRIAXONE 2,000 MG in NA CHLORIDE 0.9% 100 ML IV SCH (21:00)
[2024-11-24] MEDS: LEVOTHYROXINE SOD 0.075 MG TAB PO SCH (06:27)
[2024-11-24] MEDS: ONDANSETRON 4 MG/2 ML VIAL IV PRN (06:27)
[2024-11-24 07:17] LABS: Absolute Lymphocytes (CBC) 1.6 K/uL (0.7-4.9); Hematocrit 29.5 % (36.0-45.0); Hemoglobin 9.7 g/dL (12.0-15.0); MCH 26.5 pg (27.0-35.0); MCHC 32.9 g/dL (32.0-36.0); MCV 80.7 fL (80-100); MPV 8.9 fL (7.6-11.3); Nucleated RBC Absolute Count 0.0 (0-0); Nucleated Red Blood Cells % 0.0 % (0-0); RBC Red Blood Cell Count 3.65 M/uL (3.86-4.86); White Blood Count 9.20 thou/uL (4.3-10.9)
[2024-11-24 07:47] LABS: ALT/SGPT 18.0 U/L (13-56); AST/SGOT 37.0 U/L (15-37); Albumin 1.3 g/dL (3.4-5.0); Albumin/Globulin Ratio 0.3 (1.1-1.8); Alkaline Phosphatase 106.0 U/L (45-117); Anion Gap 9.1 mEq/L (5.0-15.0); BUN Blood Urea Nitrogen 17.0 mg/dL (7-18); Globulin 4.3 g/dL (2.3-3.5); Glucose Level 77.0 mg/dL (74-106); Magnesium 1.9 mg/dL (1.6-2.4); Potassium 3.1 mEq/L (3.5-5.1)
[2024-11-24] MEDS ORDERED: HOME MED 1 EA UNK (Mirtazapine [Mirtazapine] 30 MG Tablet) PO SCH (09:00)
[2024-11-24] MEDS: FOLIC ACID 1 MG TABLET PO SCH (09:35)
[2024-11-24] MEDS: POTASSIUM 25 MEQ EFFERV TAB PO ONE (13:12)
[2024-11-24] MEDS: ENSURE MAX PROTEIN 330 ML LIQUID PO SCH (20:05)
[2024-11-24] MEDS: JUVEN PACKET PO SCH (20:05)
--- NOTE | 2024-11-25 01:14 | CON ---
History Of Present Illness: This is a 64-year-old female known to me from previous admissions. The patient coming to the emergency room due to urinary symptoms of decreased urine output, and was admit gin for sepsis and urinary tract infection. The patient has multiple open wounds and sacral decubitu s ulcer. Her blood cultures are growing Enterococcus faecalis done on November 21, sensitive to van comycin, ampicillin, and Zyvox. The patient has allergies to ampicillin and Zithromax. Feels slight ly better today. Continued to have generalized discomfort. She has significant past medical history of stroke, arthritis, hypertension, chronic pressure sacral pressure ulcer, multiple open wounds, hy percholesterolemia, hypothyroidism, renal calculus, osteoarthritis, chronic osteomyelitis, chronic in dwelling [place] catheter. On admission, the patient's white count was 20,000, which has come down to 9.2. Past Medical History: As per HPI. Social History: Nonsmoker, nondrinker. Medications: Rocephin and vancomycin. See MAR for other medications. Allergies: ZITHROMAX, LISINOPRIL, SHELLFISH. Review of Systems: A 10-point review was performed. Physical Examination: General: This is a 64-year-old female, lying in bed, not in any acute cardiopulmonary distress. Vital signs: Temperature 98.5, pulse 95, respiration 95/61. HEENT: Unremarkable. Neck: Supple. Lungs: Basal crackles. Heart: S1, S2. Regular. Abdomen: Soft, nontender. Bowel sounds present. Extremities: Muscle wasting noted. Wounds noted. Laboratory Data: Shows WBC 9.2 down from 20,000, hemoglobin 9.7, platelets 309. Chemistry shows BUN of 17, creatinine 0.29, albumin level of 1.3. Blood cultures from 11/21 grew Enterococcus faecalis sensitive to vancomycin. Assessment And Plan: A 64-year-old female coming in with urosepsis. Cultures grew Enterococcus faec bobby, currently being empirically treated with Rocephin and vancomycin with significant past medical history of sacral decubitus ulcer and multiple wounds and multiple medical problems. Continue antibi otic and supportive care and wound care for 2 weeks. We will monitor signs of infection with WBC and fever trend. Thank you Dr. Bojorquez for consult. NF/MODL Voice ID: [id number] Report ID: [id number]
--- NOTE | 2024-11-25 11:48 | P.PN ---
Date of Service: 11/25/24 subjective: no concern or complaints. Denied NVD. WBC WNL objective Temp Pulse Resp BP Pulse Ox 98.3 F 76 16 162/89 H 99 11/25/24 08:00 11/25/24 08:00 11/25/24 08:00 11/25/24 08:00 11/25/24 08:00 - Physical Exam General: Alert, In no apparent distress, Oriented x3, Cooperative HEENT: Atraumatic, Normocephalic, PERRLA, allergies Neck: Supple Respiratory: Clear to auscultation bilaterally Cardiovascular: RRR Gastrointestinal: Normal bowel sounds,ND, NT Musculoskeletal: Contractures Integumentary: Wound to left elbow and multiple wounds with sacral decubitus labs:wbc 9.2,hgb 9.7, bun 17, cr 0.29 albumin 1.3 Assessment and Plan Enteroccoccus faecalis Bacteremia hx of sacral decubitus ulcer and multiple open wounds pyuria hematuria severe protein calorie malnourishment blood culture growing enterococcus faecalis continue vancomcyin and rocephin x 2 weeks urine culture either colonization/contamination. left elbow wound culture pending wound care per wound care team will continue to monitor infection with wbc and fever trend case discussed and in agreement with dr araiza
[2024-11-25 12:43] LABS: Anion Gap 8.1 mEq/L (5.0-15.0); BUN Blood Urea Nitrogen 10.0 mg/dL (7-18); Glucose Level 90.0 mg/dL (74-106); Potassium 3.1 mEq/L (3.5-5.1)
[2024-11-25] MEDS: POTASSIUM CL SA 10 MEQ TAB PO ONE (15:48)
[2024-11-26 07:45] LABS: Anion Gap 7.6 mEq/L (5.0-15.0); BUN Blood Urea Nitrogen 15.0 mg/dL (7-18); Glucose Level 84.0 mg/dL (74-106); Magnesium 1.6 mg/dL (1.6-2.4); Potassium 4.6 mEq/L (3.5-5.1)
[2024-11-26] MEDS: HYDRALAZINE HCL 20 MG/ML VIAL IV PRN (09:23)
--- NOTE | 2024-11-26 12:00 | P.PN ---
Date of Service: 11/26/24 subjective: no concern or complaints. Denied NVD. WBC WNL objective Temp Pulse Resp BP Pulse Ox 98.3 F 79 17 165/95 H 97 11/26/24 08:00 11/26/24 08:00 11/26/24 08:00 11/26/24 08:00 11/26/24 08:00 - Physical Exam General: Alert, In no apparent distress, Oriented x3, Cooperative HEENT: Atraumatic, Normocephalic, PERRLA, allergies Neck: Supple Respiratory: Clear to auscultation bilaterally Cardiovascular: RRR Gastrointestinal: Normal bowel sounds,ND, NT Musculoskeletal: Contractures Integumentary: Wound to left elbow and multiple wounds with sacral decubitus labs:wbc 9.2,hgb 9.7, bun 17, cr 0.29 albumin 1.3 Assessment and Plan Enteroccoccus faecalis and MRSA Bacteremia hx of sacral decubitus ulcer and multiple open wounds pyuria hematuria severe protein calorie malnourishment blood culture growing enterococcus faecalis and MRSA. repeat blood culture until titi continue vancomcyin x 2 weeks. dc rocephin urine culture either colonization/contamination. repeat UA left elbow wound culture pending wound care per wound care team will continue to monitor infection with wbc and fever trend case discussed and in agreement with dr araiza
[2024-11-26 12:55] LABS: Sqamous Epithelial None Seen /HPF (None Seen); Urine Culture Reflex Order REFLEXED; Urine Microscopic Reflex YN ORDER UMIC; Urine WBC Clump Few /HPF (None Seen); Urine Yeast (Budding) Few /HPF (None Seen)
[2024-11-26] MEDS: MAGNESIUM SULFATE 1 gm IVPB 1 GM/100 ML BAG IV ONE (13:33)
[2024-11-27 01:58] VITALS: O2SAT 96
[2024-11-27 06:35] LABS: Anion Gap 9.5 mEq/L (5.0-15.0); BUN Blood Urea Nitrogen 12 mg/dL (7-18); Glucose Level 77 mg/dL (74-106); Magnesium 1.6 mg/dL (1.6-2.4); Potassium 4.5 mEq/L (3.5-5.1)
[2024-11-27] MEDS: VANCOMYCIN 1 GM in NA CHLORIDE 0.9% 250 ML IVPB SCH (10:08)
[2024-11-27] MEDS: MAGNESIUM SULFATE 1 gm IVPB 1 GM/100 ML BAG IV ONE (11:16)
[2024-11-27 16:40] VITALS: BP 139/77; TEMP 98.6
== END 2024-11-27 15:55 | disposition home health service (06) | DRG 871 ==
LOC: ER 14:55 → ERHOLD 20:27 → 4TH 22:11
PROVIDERS: ADMIT Family Medicine; ATTEND Hospitalist
DX: A41.81 Sepsis due to Enterococcus (principal); E43 Unspecified severe protein-calorie malnutrition; L89.154 Pressure ulcer of sacral region, stage 4; R65.21 Severe sepsis with septic shock; N39.0 Urinary tract infection, site not specified; N17.9 Acute kidney failure, unspecified; Z68.1 Body mass index [BMI] 19.9 or less, adult; E83.42 Hypomagnesemia; E86.0 Dehydration; E87.6 Hypokalemia; E03.9 Hypothyroidism, unspecified; E78.00 Pure hypercholesterolemia, unspecified; I10 Essential (primary) hypertension; M19.90 Unspecified osteoarthritis, unspecified site; S51.002A Unspecified open wound of left elbow, initial encounter; Z88.0 Allergy status to penicillin; Z88.1 Allergy status to other antibiotic agents; Z91.013 Allergy to seafood; Z88.8 Allergy status to other drugs, medicaments and biological substances; Z91.018 Allergy to other foods; Z91.048 Other nonmedicinal substance allergy status; Z86.73 Personal history of transient ischemic attack (TIA), and cerebral infarction without residual deficits; Z96.651 Presence of right artificial knee joint; Z87.891 Personal history of nicotine dependence; Z79.890 Hormone replacement therapy; Z79.899 Other long term (current) drug therapy
CPT/HCPCS: 36415; 51702; 71045; 71250; 74176; 80048; 80053; 80202; 81001; 82330; 82550; 82947; 83605; 83735; 83880; 84100; 84484; 85025; 85610; 85730; 87040; 87070; 87077; 87086; 87088; 87186; 87205; 93005; 96361; 96365; 96366; 96367; 96375; 97110; 97162; 97165; 99285; J0360; J0612; J0696; J1644; J2405; J3373; J3475; J3480; J7030; J7040; J7050; P9047